=== PATIENT | male | born 1960 | race Caucasian/White ===

== ENCOUNTER 2019-07-13 08:42 | Outpatient (RCR) | payer OTHER, MEDICARE, MEDICAID, SELFPAY ==
[2019-07-13 09:11] VITALS: BP_SYST 90
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
--- NOTE | 2019-08-24 17:57 | OTOPEVAL ---
Thank you for referring Ajit Tyler to [facility]. Please review, sign, date and return this plan of care MAXIM. I agree with and certify that the following plan of care is medically necessary. Referring Physician Date Admitting Provider: Attending Provider: PHYSICIAN NOT ON STAFF Referring Provider: *OT Outpatient Evaluation Start: 07/13/19 09:05 Freq: Status: Active Protocol: Document 08/24/19 16:08 [facility] [place] (Rec: 08/24/19 17:57 [facility] [id number]) Therapy Assessment Status Assessment Status Assessment Status Re-evaluation Outpatient Past Medical History Musculoskeletal History Hx Orthopedic Surgery Yes: C4-C7 fusion in 2014 Evaluation Information Problem Subjective Information Patient reports that he is up Query Text:As Reported By Patient/ to wearing bilateral wrist Family orthosis 3hrs/time and is planning to start wearing them overnight. Patient arrives to therapy with L shoulder sling donned. Patient is now able to perform supine to sit with minimal assist as well as reposition his arms/hands better when sitting in the wheelchair. Patient complains of bilateral shoulder pain. Patient continues to report primary goal of feeding self. Pain Assessment Timing of Pain Assessment Timing of Pain Assessment Re-assessment Pain Scale Pain Scale Used Numeric (1 - 10) Self Report Pain Assessment Bilateral Shoulder(s) Reported Pain Level 5 Pain Score Pain Score 5: Self Report Upper Extremity Range of Motion Scapular/ Shoulder Range of Motion Bilateral Shoulder Flexion - Passive 95 Scapular/Shoulder Range of Motion ~90 of passive flexion with Comments pain Elbow/Forearm Range of Motion Bilateral Reason Not Measured WFL/Left,WFL/Right Wrist Range of Motion Bilateral Wrist Extension - Passive 40 Finger Range of Motion Bilateral Index Finger MCP Joint Flexion - Passive 60 Finger Range of Motion Comments 60 MCP flexion for all digits Upper Extremity Muscle Strength Testing General Upper Extremity Strength Gross Upper Extremity Strength Comments 2- throughout B UE Sensation Assessment Location Bilateral 2 Point Discrimination Comments reports pins and needles Transfer Assessment Car Transfer Assessment Car Transfer Assistive Devices Gait Belt Ambulation Assistive Devices None Sit to Stand Car Transfer Ability Minimum Assistance X 2 Pivot Car Transfer Ability Minimum Assistance X 2 Stand to Sit Car Transfer Ability
--- NOTE | 2019-08-31 16:38 | PCPTNOTE ---
patient cancelled appt today. PARAMJIT
--- NOTE | 2019-09-23 14:37 | PTOPEVAL ---
Thank you for referring Ajit Tyler to [facility]. Please review, sign, date and return this plan of care MAXIM. I agree with and certify that the following plan of care is medically necessary. Referring Physician Date Admitting Provider: Attending Provider: PHYSICIAN NOT ON STAFF Referring Provider: *PT Outpatient Evaluation Start: 07/13/19 10:02 Freq: Status: Active Protocol: Document 08/24/19 17:00 [facility] (Rec: 09/23/19 14:16 [facility] [id number]) Therapy Assessment Status Assessment Status Assessment Status Re-evaluation Outpatient Past Medical History Musculoskeletal History Hx Orthopedic Surgery Yes: C4-C7 fusion in 2014 Evaluation Information Problem Diagnosis spinal injury Subjective Information patient reports he feels he is Query Text:As Reported By Patient/ getting better week by week Family , but still presents with poor use of his UE's. he is seeing OT for his UE rehab. he reports he is walking at home and still staying with his nephew. he reports he is fatigued with therapy and standing activities. he reports he cannot walk on his own. Pain Assessment Timing of Pain Assessment Timing of Pain Assessment Assessment Pain Scale Pain Scale Used Numeric (1 - 10) Self Report Pain Assessment Bilateral Shoulder(s) Reported Pain Level 4 Pain Score Pain Score 4: Self Report Lower Extremity Muscle Strength Testing General Lower Extremity Strength Gross Lower Extremity Strength bilateral hip flex = 3+/5 bilateral hip abd = 2+/5 bilateral knee flex = 4-/5 bilateral knee ext = 4-/5 bilateral ankle df = 3+/5 patient presents with ability to perform supine SLR independent without extension lag patient presents with ability to perform a bridge independently Transfer Assessment Bed Transfer Assessment Bed Transfer Comments moderate assit for sit to stand transfers. Bed Mobility Assessment Bed Mobility Bed Mobility Comments CGA/minimal assist for supine to sit transfers holding feet down on floor. Gait Assessment Gait Assessment Additional Ambulation Comments bilater
--- NOTE | 2019-09-29 07:49 | PTOPEVAL ---
Thank you for referring Ajit Tyler to [facility] [place].? The patient is scheduled to be seen for therapy? ____x/week for ___ weeks. Please review, sign, date and return this plan of care MAXIM. I agree with and certify that the following plan of care is medically necessary. Referring Physician Date Admitting Provider: Attending Provider: PHYSICIAN NOT ON STAFF Referring Provider: *PT Outpatient Evaluation Start: 07/13/19 10:02 Freq: Status: Active Protocol: Document 09/28/19 17:00 [facility] (Rec: 09/29/19 07:47 [facility] [id number]) Therapy Assessment Status Assessment Status Assessment Status Re-evaluation Outpatient Past Medical History Musculoskeletal History Hx Orthopedic Surgery Yes: C4-C7 fusion in 2014 Evaluation Information Problem Diagnosis spinal injury Subjective Information patient reports he feels Good Query Text:As Reported By Patient/ this date. he reports he has Family pain in the shoulder still and is weak with standing. he reports he has been using his new platform walker at home, but still requires assist to get on and off the walker, and to walk with the walker. he reports he is now living in town and able to take transit to therapy. Pain Assessment Timing of Pain Assessment Timing of Pain Assessment Assessment Self Report Self Report Pain Level 0 Pain Score Pain Score 0: Self Report Additional Pain Score Comments increased pain in bilateral shoulders (L greater than R) with movement away from body. Lower Extremity Muscle Strength Testing General Lower Extremity Strength Gross Lower Extremity Strength bilateral hip flex = 3+/5 bilateral hip abd = 3-/5 bilateral knee flex = 4-/5 bilateral knee ext = 4-/5 patient is able to perform sitting marching and LAQ's with good form for 10 reps each wearing 2lb ankle weights . Transfer Assessment Bed Transfer Assessment Bed Transfer Comments utilizing 2 foam pads for assist, patient is able to perform sit to stand with minnimum assist at best, but still moderate assist with majority of transfers due to re
--- NOTE | 2019-10-10 18:02 | OTOPEVAL ---
Thank you for referring Ajit Tyler to [facility].? The patient is scheduled to be seen for therapy? ____x/week for ___ weeks. Please review, sign, date and return this plan of care MAXIM. I agree with and certify that the following plan of care is medically necessary. Referring Physician Date Admitting Provider: Attending Provider: PHYSICIAN NOT ON STAFF Referring Provider: *OT Outpatient Evaluation Start: 07/13/19 09:05 Freq: Status: Active Protocol: Document 10/10/19 16:53 [facility] [place] (Rec: 10/10/19 18:02 [facility] [id number]) Therapy Assessment Status Assessment Status Assessment Status Re-evaluation Outpatient Past Medical History Musculoskeletal History Hx Orthopedic Surgery Yes: C4-C7 fusion in 2014 Evaluation Information Problem Subjective Information Patient reports over the last Query Text:As Reported By Patient/ couple weeks his shoulder Family muscles have come back and I am able to raise my arm off of the chair. He also reports, it doesnt hurt as much to move my shoulders around and I think I can move my fingers more. Patient reports that he continues to do exercises at work, specifically the isometric shoulder exercises. He also reports that they are starting to do more PROM now that his shoulders are a little better. Patient continues to use bilateral wrist orthosis but reports that he is not wearing them as much as he should because he becomes really sore when doffing them. Pain Assessment Timing of Pain Assessment Timing of Pain Assessment Re-assessment Pain Scale Pain Scale Used Numeric (1 - 10) Self Report Pain Assessment Bilateral Shoulder(s) Reported Pain Level 2 Pain Score Pain Score 2: Self Report Upper Extremity Range of Motion Finger Range of Motion Bilateral Finger Range of Motion Comments PROM MCP flexion ~65 degrees PROM Wrist extension ~45 degrees Upper Extremity Muscle Strength Testing General Upper Extremity Strength Gross Upper Extremity Strength Comments bilateral shoulder flexion and abduction: 2-/5 bilateral elbow flexion: 2/5 bilateral elbow extension:3/5
== END 2019-10-10 23:59 | disposition home or self-care (01) ==
LOC: CHSPT 08:42
DX: T14.90XA Injury, unspecified, initial encounter (principal); A41.9 Sepsis, unspecified organism; S14.109A Unspecified injury at unspecified level of cervical spinal cord, initial encounter; M50.30 Other cervical disc degeneration, unspecified cervical region
CPT/HCPCS: 97014; 97110; 97112; 97116; 97140; 97163; 97165; 97166; 97530; G0283

== ENCOUNTER 2019-09-14 14:24 | Outpatient (CLI) | payer MEDICARE, MEDICAID, SELFPAY ==
--- NOTE | ~2019-09-14 | XR_ITS ---
EXAMINATION: XR shoulder LT min 2V DATE: 09/14/2019 15:06 INDICATION: Left rotator cuff syndrome. TECHNIQUE: 4 views of left shoulder were obtained. COMPARISON: None. FINDINGS: Bone alignment is normal. No fracture. There is mild osteoarthritis of glenohumeral joint a nd acromioclavicular joint. There are changes of anterior and posterior fusion procedures in cervical spine. IMPRESSION: 1. Mild polyarticular osteoarthritis. Reviewed, dictated and finalized at location A.
--- NOTE | ~2019-09-14 | XR_ITS ---
EXAMINATION: XR shoulder RT min 2V DATE: 09/14/2019 15:05 INDICATION: Right shoulder rotator cuff syndrome. TECHNIQUE: 4 views of right shoulder were obtained. COMPARISON: None. FINDINGS: Bone alignment is normal. No fracture. There is mild osteoarthritis of glenohumeral joint a nd moderate osteoarthritis of acromioclavicular joint. IMPRESSION: 1. Polyarticular osteoarthritis. Reviewed, dictated and finalized at location A.
== END 2019-09-14 14:25 | disposition home or self-care (01) ==
LOC: CHSIMG 14:30
DX: M75.101 Unspecified rotator cuff tear or rupture of right shoulder, not specified as traumatic (principal)
CPT/HCPCS: 73030

== ENCOUNTER 2019-10-14 09:40 | Outpatient (RCR) | payer OTHER, MEDICARE, MEDICAID, SELFPAY ==
--- NOTE | 2019-11-02 17:43 | PTOPEVAL ---
Thank you for referring Ajit Tyler to [facility].? The patient is scheduled to be seen for therapy? __3__x/week for _12 visits. Please review, sign, date and return this plan of care MAXIM. I agree with and certify that the following plan of care is medically necessary. Referring Physician Date Admitting Provider: Attending Provider: PHYSICIAN NOT ON STAFF Referring Provider: *PT Outpatient Evaluation Start: 11/02/19 16:06 Freq: Status: Active Protocol: Document 11/02/19 16:37 [facility] A (Rec: 11/02/19 17:42 LUIS A [id number]) Therapy Assessment Status Assessment Status Assessment Status Progress Outpatient Past Medical History Musculoskeletal History Hx Orthopedic Surgery Yes: C4-C7 fusion in 2014 Evaluation Information Problem Subjective Information Pt. reports that he is Query Text:As Reported By Patient/ noticing improvments in his Family ability to move in the home. He states that he is currently living with his sister who is able to get him up and walk daily. He states that he still cannot remain active as long as he would like due to not having 24 hour assist. He states that he is able to participate in toileting and can now use the bathroom for bowel movements and urinating. He states that he still needs help with dressing and bathing. He reports that he can get himself upright in bed without assist on occassion and can stand from the EOB without assist. He still requires help when getting into and out of his wc due to the depth of the seat. He states that he fears that not attending therapy, he will not get the required amount of activity that he needs to progress due to lack of adequate help with exercise at home. Pain Assessment Pain Scale Pain Scale Used Numeric (1 - 10) Self Report Pain Assessment Bilateral Shoulder(s) Reported Pain Level 4 Pain Score Pain Score 4: Self Report Cervical and Lumbar ROM Cervical ROM Cervical Flexion (0-60) 23 Q
--- NOTE | 2019-11-11 17:02 | OTOPEVAL ---
Thank you for referring Ajit Tyler to [facility].? The patient is scheduled to be seen for therapy? ____x/week for ___ weeks. Please review, sign, date and return this plan of care MAXIM. I agree with and certify that the following plan of care is medically necessary. Referring Physician Date Admitting Provider: Attending Provider: PHYSICIAN NOT ON STAFF Referring Provider: *OT Outpatient Evaluation Start: 10/14/19 16:00 Freq: Status: Active Protocol: Document 11/11/19 15:51 [facility] [place] (Rec: 11/11/19 17:01 [facility] [id number]) Therapy Assessment Status Assessment Status Assessment Status Re-evaluation Outpatient Past Medical History Musculoskeletal History Hx Orthopedic Surgery Yes: C4-C7 fusion in 2014 Evaluation Information Problem Subjective Information Patient transitions from PT to Query Text:As Reported By Patient/ OT and reports that overall Family things are going well at home. He continues to live with his sister who is available to assist with bathing, dressing and grooming. Patient reports that he is now able to use the toilet and is able to use his walker more within the home. Patient is also able to perform transfers with minimal assist as well as bed mobility. He states that he can sit up on the side of the bed and stand up without any assistance. Patient is able to position bilateral arms on platform walker prior to walking. Patient continues to have a goal of independent self feeding. Patient Pain Assessment Timing of Pain Assessment Timing of Pain Assessment Pre-Treatment Pain Scale Pain Scale Used Numeric (1 - 10) Self Report Pain Assessment Bilateral Shoulder(s) Reported Pain Level 4 Pain Score Pain Score 4: Self Report Upper Extremity Range of Motion Wrist Range of Motion Bilateral Wrist Extension - Passive 45 Finger Range of Motion Bilateral Finger Range of Motion Comments MCP passive flexion: 80 degrees Upper Extremity Muscle Strength Testing Elbow/Forearm Right Elbow Flexion Strength 2+ Poor + Left Elbow Flexion Strength 2+ Poor + Sensation Assessment Location Bilateral 2 Point Discrimination Comments Patient reports tingling and
--- NOTE | 2019-12-09 16:20 | PTOPEVAL ---
Thank you for referring Ajit Tyler to [facility].? The patient is scheduled to be seen for therapy? ____x/week for ___ weeks. Please review, sign, date and return this plan of care MAXIM. I agree with and certify that the following plan of care is medically necessary. Referring Physician Date Admitting Provider: Attending Provider: PHYSICIAN NOT ON STAFF Referring Provider: *PT Outpatient Evaluation Start: 11/02/19 16:06 Freq: Status: Active Protocol: Document 11/30/19 14:25 HERMANN (Rec: 11/30/19 16:00 HERMANN [id number]) Therapy Assessment Status Assessment Status Assessment Status Re-evaluation Outpatient Past Medical History Musculoskeletal History Hx Orthopedic Surgery Yes: C4-C7 fusion in 2014 Evaluation Information Problem Diagnosis SCI, bialteral frozen shoulders Subjective Information patient reports he is noticing Query Text:As Reported By Patient/ improvements in both his arms Family and legs with activities in therapy and at home. however, he reports the most limitations still in his UE use/mobility. Pain Assessment Timing of Pain Assessment Timing of Pain Assessment Assessment Pain Scale Pain Scale Used Numeric (1 - 10) Self Report Pain Assessment Bilateral Shoulder(s) Reported Pain Level 5 Pain Score Pain Score 5: Self Report Upper Extremity Range of Motion General Upper Extremity Range of Motion Gross Upper Extremity Range of Motion PROM R shoulder flex = 65 Comments degrees, abd = 40 degrees, er = 0 degrees PROM L sholder flex = 70 degrees, abd = 50 degrees, er = 10 degrees Lower Extremity Muscle Strength Testing General Lower Extremity Strength Gross Lower Extremity Strength bilateral hip flexion 4/5 bilateral hip abduction 3+/5 bilateral hip extension 3+/5 bilateral knee flexion 4/5 bilateral knee extension 4/5 bilateral ankle dorsiflexion 4 /5 Transfer Assessment Chair Transfer Assessment Chair Transfer Assistive Devices Gait Belt Ambulation Assistive Devices Hand Hold Chair Transfer Destination Ambulatory Sit to Stand Chair Transfer Ability Contact Guard Stand to Sit Chair Transfer Ability Contact Guard Chair Transfer Comments patient performs improved transfers sit to stand this date from moderate to high
[2020-01-04 16:13] VITALS: BP_SYST 80
--- NOTE | 2020-01-04 17:18 | PTOPEVAL ---
Thank you for referring Ajit Tyler to [facility].? The patient is scheduled to be seen for therapy? __3__x/week for 12 visits. Please review, sign, date and return this plan of care MAXIM. I agree with and certify that the following plan of care is medically necessary. Referring Physician Date Admitting Provider: Attending Provider: PHYSICIAN NOT ON STAFF Referring Provider: *PT Outpatient Evaluation Start: 11/02/19 16:06 Freq: Status: Active Protocol: Document 01/04/20 16:13 LUIS A (Rec: 01/04/20 17:17 LUIS A [id number]) Therapy Assessment Status Assessment Status Assessment Status Re-evaluation Outpatient Past Medical History Musculoskeletal History Hx Orthopedic Surgery Yes: C4-C7 fusion in 2014 Evaluation Information Problem Diagnosis SCI, bilateral frozen shoulders Subjective Information Pt. reports that he notices Query Text:As Reported By Patient/ better shoulder mobility, but Family pain is still intense with any shoulder movement. He states that he does not have alot of assistance at home regarding exercise. He is able to get himself seated at the edge of the bed. He reports that he is almost able to feed himself with some adaptive equipment but still requires assist. He states that he has been walking in the stores with his walker with assist from family. Pt. still has concern because he cannot be provided daily assist for vigorous activity and request to continue therapy to continue to improve shoulder mobility and general strength. Pain Assessment Pain Scale Pain Scale Used Numeric (1 - 10) Self Report Pain Assessment Lower Back Reported Pain Level 6 Bilateral Shoulder(s) Reported Pain Level 4 Greatest Pain Intensity 8 Pain Score Pain Score 6,4: Self Report Interventions Used Interventions Used By Clinicians Activity or ADL's,Exercise, Mobilization Upper Extremity Range of Motion Scapular/ Shoulder Range of Motion Left Shoulder Flexion - Active 0 Shoulder Flexion - Passive 90 Shoulder Abduction - Active 0 Shoulder Abduction - Passive 80 Shoulder Lateral Rotation - Active 0
--- NOTE | 2020-01-10 07:35 | OTOPEVAL ---
Thank you for referring Ajit Tyler to [facility].? The patient is scheduled to be seen for therapy? ____x/week for ___ weeks. Please review, sign, date and return this plan of care MAXIM. I agree with and certify that the following plan of care is medically necessary. Referring Physician Date Admitting Provider: Attending Provider: PHYSICIAN NOT ON STAFF Referring Provider: *OT Outpatient Evaluation Start: 10/14/19 16:00 Freq: Status: Active Protocol: Document 01/09/20 16:53 [facility] [place]Rec: 01/09/20 17:53 [id number]) Therapy Assessment Status Assessment Status Assessment Status Re-evaluation Outpatient Past Medical History Musculoskeletal History Hx Orthopedic Surgery Yes: C4-C7 fusion in 2014 Evaluation Information Problem Subjective Information Patient reports that he is now Query Text:As Reported By Patient/ able to [employer] his phone and Family the remote control. He is also able to dial numbers on his phone, reach down and pull up/down his foot plates on wheelchair. Physical therapy continues to address shoulder limitations. Patient has had an increase in lower back pain over the last ~4 weeks. Patient reports that tingling in his UE's continues to be present but intensity varies. Pain Assessment Timing of Pain Assessment Timing of Pain Assessment Pre-Treatment Pain Scale Pain Scale Used Numeric (1 - 10) Self Report Pain Assessment Lower Back Reported Pain Level 5 Bilateral Shoulder(s) Reported Pain Level 5 Pain Score Pain Score 5,5: Self Report Interventions Used Interventions Used By Clinicians Exercise,Position Change Upper Extremity Range of Motion General Upper Extremity Range of Motion Gross Upper Extremity Range of Motion PROM for bilateral elbows and Comments wrist is WFL *see PT note for ROM of B shoulders Finger Range of Motion Right Index Finger MCP Joint Flexion - Passive 60 Index Finger PIP Joint Flexion - Passive 55 Index Finger DIP Joint Flexion - Passive 35 Little Finger MCP Joint Flexion - 55 Passive Little Finger PIP Joint Flexion - 70 Passive Little Finger DIP Joint Flexion - 45 Passive Left Index Finger MCP Joint Flexion - Passive 55 Index Finger PIP Joint Flexion - Passive 90 Index Finger DIP Joint Flexion - Passive 30 Little Finger MCP Joint Flexion - 40 Passive
== END 2020-01-16 23:59 | disposition home or self-care (01) ==
LOC: CHSPT 09:40
DX: T14.90XA Injury, unspecified, initial encounter (principal); A41.9 Sepsis, unspecified organism; S14.109A Unspecified injury at unspecified level of cervical spinal cord, initial encounter; M43.9 Deforming dorsopathy, unspecified
CPT/HCPCS: 97014; 97110; 97112; 97116; 97161; 97530; G0283

== ENCOUNTER 2019-10-25 10:28 | Outpatient (CLI) | payer MEDICARE, MEDICAID, SELFPAY ==
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
== END 2019-10-25 10:29 | disposition home or self-care (01) ==
DX: R51 Headache (principal)
CPT/HCPCS: 76536

== ENCOUNTER 2019-12-02 22:41 | Emergency (ER) | payer MEDICARE, MEDICAID, SELFPAY ==
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
[2019-12-02 23:03] VITALS: BP 164/84; PULSE 110; RESP 20; TEMP 36.8; O2SAT 96
[2019-12-03] MEDS: ORPHENADRINE CITRATE 30 MG/ML 2 ML VIAL 60 MG IM
[2019-12-03] MEDS: KETOROLAC (*BKC) 60 MG/2 ML VIAL IM (00:01)
[2019-12-03 00:10] VITALS: BP 144/78; PULSE 98; RESP 20; TEMP 37.1; O2SAT 97
== END 2019-12-03 00:16 | disposition home or self-care (01) ==
PROVIDERS: Emergency Provider Emergency Medicine
DX: M51.26 Other intervertebral disc displacement, lumbar region (principal)
CPT/HCPCS: 72131; 96372; 99283; 99284; J1885; J2360

== ENCOUNTER 2020-01-18 14:19 | Outpatient (RCR) | payer MEDICARE, MEDICAID, SELFPAY ==
--- NOTE | 2020-02-22 16:30 | OTOPEVAL ---
Thank you for referring Ajit Tyler to [facility].? The patient is scheduled to be seen for therapy? ____x/week for ___ weeks. Please review, sign, date and return this plan of care MAXIM. I agree with and certify that the following plan of care is medically necessary. Referring Physician Date Admitting Provider: Attending Provider: PHYSICIAN NOT ON STAFF Referring Provider: *OT Outpatient Evaluation Start: 01/18/20 16:00 Freq: Status: Active Protocol: Document 02/22/20 15:00 [facility] (Rec: 02/22/20 16:00 [facility] [id number]) Therapy Assessment Status Assessment Status Assessment Status Re-evaluation Outpatient Past Medical History Musculoskeletal History Hx Orthopedic Surgery Yes: C4-C7 fusion in 2014 Evaluation Information Problem Subjective Information Patient reports that he has Query Text:As Reported By Patient/ been able to use his hands Family more to manipulate the remote control and his cell phone. Patient is able to hold his arms up while his caregiver removes the shirt. Patient reports that he is able to reach and pull up his pants while sitting on the toilet. Patient is able to move his arms better to be able to assist with donning and doffing jacket. Patient has also been able to reach and grasp a mug and take a drink. Getting in and out of the car is easier as patient notes that he has been going to [employer] and walking all over the store. Patient is now consistently using his right hand to control his wheelchair . Pain Assessment Timing of Pain Assessment Timing of Pain Assessment Re-assessment Pain Scale Pain Scale Used Numeric (1 - 10) Self Report Pain Assessment Shoulder(s) Reported Pain Level 3 Lower Back Reported Pain Level 3 Pain Score Pain Score 3,3: Self Report Interventions Used Interventions Used By Clinicians Exercise,Rest General Exercise General Exercises Side Bilateral Exercise Description 3# wrist weight resisting Query Text:Record Sets, Reps, elbow flexion, 25 reps x 2 Resistance, and Position sets Patient is able to oppose the
--- NOTE | 2020-03-28 16:39 | OTOPEVAL ---
Thank you for referring Ajit Tyler to [facility].? The patient is scheduled to be seen for therapy? ____x/week for ___ weeks. Please review, sign, date and return this plan of care MAXIM. I agree with and certify that the following plan of care is medically necessary. Referring Physician Date Admitting Provider: Attending Provider: PHYSICIAN NOT ON STAFF Referring Provider: *OT Outpatient Evaluation Start: 01/18/20 16:00 Freq: Status: Active Protocol: Document 03/28/20 15:35 [facility] (Rec: 03/28/20 16:38 [facility] [id number]) Therapy Assessment Status Assessment Status Assessment Status Re-evaluation Outpatient Past Medical History Musculoskeletal History Hx Orthopedic Surgery Yes: C4-C7 fusion in 2014 Evaluation Information Problem Subjective Information Patient reports that things Query Text:As Reported By Patient/ are going well. He is doing Family more standing and walking with independence. Patient is using his hands to stack and manipulate Legos as well as continues to improve accuracy with use of remote control and the phone. Patient continues to perform home exercises but is struggling to assist with toileting, dressing, bathing. Pain Assessment Timing of Pain Assessment Timing of Pain Assessment Re-assessment Pain Scale Pain Scale Used Numeric (1 - 10) Self Report Pain Assessment Shoulder(s) Reported Pain Level 2 Lower Back Reported Pain Level 2 Pain Score Pain Score 2,2: Self Report Interventions Used Interventions Used By Clinicians Exercise,Position Change, Relaxation Technique Upper Extremity Range of Motion General Upper Extremity Range of Motion Gross Upper Extremity Range of Motion R index MCP flexion: 70 Comments R index PIP flexion: 70 L index MCP: 65 degrees Upper Extremity Muscle Strength Testing Elbow/Forearm Bilateral Elbow Flexion Strength 3- Fair - Elbow Extension Strength 3- Fair - Forearm Pronation Strength 3- Fair - Forearm Supination Strength 3- Fair - Hand Clinical Evaluator/Pinch Strength Assessment Hand Right Clinical Evaluator Strength (lbs) 6 Left Clinical Evaluator Strength (lbs) 6 Complex ADL Assessment Eating/Feeding Eating (Feeding) Assistive Devices Adapted Utensil,Utensil Cuff Ability to Bring Food to Mouth and Contact Guard Swallow Cues Needed for Eating Tactile Eating (Feeding) Comment max assist to load spoon however patien
== END 2020-04-20 15:26 | disposition still patient (30) ==
LOC: CHSPT 14:19
DX: T14.90XA Injury, unspecified, initial encounter (principal); A41.9 Sepsis, unspecified organism; S14.109A Unspecified injury at unspecified level of cervical spinal cord, initial encounter
CPT/HCPCS: 97110; 97116; 97530; 97535

== ENCOUNTER 2020-04-23 15:00 | Outpatient (RCR) | payer MEDICARE, MEDICAID, SELFPAY ==
--- NOTE | 2020-05-04 16:32 | OTOPEVAL ---
Thank you for referring Ajit Tyler to [facility].? The patient is scheduled to be seen for therapy? ____x/week for ___ weeks. Please review, sign, date and return this plan of care MAXIM. I agree with and certify that the following plan of care is medically necessary. Referring Physician Date Admitting Provider: Attending Provider: LACEY HERNANDEZ Referring Provider: LeonardOT Outpatient Evaluation Start: 05/04/20 14:46 Freq: Status: Active Protocol: Document 05/04/20 14:47 [facility] (Rec: 05/04/20 16:31 [facility] [id number]) Therapy Assessment Status Assessment Status Assessment Status Re-evaluation Outpatient Past Medical History Musculoskeletal History Hx Orthopedic Surgery Yes: C4-C7 fusion in 2014 Evaluation Information Problem Subjective Information Patient reports that things Query Text:As Reported By Patient/ are going well at home. He Family states that things are getting easier. He is able to run the remote now using his thumbs and is starting to be able to hold a cup but struggles to bring to his mouth. Patient is also starting to assist with donning and doffing clothes. Patient was recently able to remove his gait belt independently. Patient states that he is not currently using his bilateral wrist orthosis secondary to being painful. Pain Assessment Timing of Pain Assessment Timing of Pain Assessment Re-assessment Pain Scale Pain Scale Used Numeric (1 - 10) Self Report Pain Assessment Bilateral Shoulder(s) Reported Pain Level 2 Back Reported Pain Level 3 Pain Score Pain Score 2,3: Self Report Interventions Used Interventions Used By Clinicians Exercise,Position Change Pain Relief Interventions Used By Exercise,Position Change Patient Upper Extremity Muscle Strength Testing General Upper Extremity Strength Gross Upper Extremity Strength Comments bilateral elbow flexion strength: 3-/5 Complex ADL Assessment Eating/Feeding Eating (Feeding) Assistive Devices Adapted Utensil,Utensil Cuff Patient Position Supported Sitting Retrieving/Setting Up Food Items Needs Assistance Method of Eating Using Utensil Ability to Bring Food to Mouth and Minimum Assistance X 1 Swallow Cues Needed for Eating Tactile Eating (Feeding) Comment
--- NOTE | 2020-07-02 17:30 | OTOPEVAL ---
Thank you for referring Ajit Tyler to [facility].? The patient is scheduled to be seen for therapy? ____x/week for ___ weeks. Please review, sign, date and return this plan of care MAXIM. I agree with and certify that the following plan of care is medically necessary. Referring Physician Date Admitting Provider: Attending Provider: LACEY HERNANDEZ Referring Provider: LeonardOT Outpatient Evaluation Start: 05/04/20 14:46 Freq: Status: Active Protocol: Document 07/02/20 15:25 [facility] (Rec: 07/02/20 16:29 [facility] [id number]) Therapy Assessment Status Assessment Status Assessment Status Re-evaluation Outpatient Past Medical History Musculoskeletal History Hx Orthopedic Surgery Yes: C4-C7 fusion in 2014 Evaluation Information Problem Subjective Information Patient reports that he is Query Text:As Reported By Patient/ scheduled for a R shoulder Family manipulation tomorrow. Patient also reports that he walked around a lot this weekened. 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 Pain Assessment Timing of Pain Assessment Timing of Pain Assessment Re-assessment Pain Scale Pain Scale Used Numeric (1 - 10) Self Report Pain Assessment Bilateral Shoulder(s) Reported Pain Level 2 Back Reported Pain Level 2 Pain Score Pain Score 2,2: Self Report Interventions Used Interventions Used By Clinicians Exercise,Manual Therapy Techniques,Position Change Upper Extremity Range of Motion General Upper Extremity Range of Motion Gross Upper Extremity Range of Motion PROM for L MCP flexion of Comments index is 70 degrees Upper Extremity Muscle Strength Testing Elbow/Forearm Bilateral Elbow/Forearm Strength Comments 3/5 Hand Quality Assurance Analyst/Pinch Strength Assessment Hand Right Quality Assurance Analyst Strength (lbs) 6 Left Quality Assurance Analyst Strength (lbs) 7 Complex ADL Assessment Eating/Feeding Eating (Feeding) Assistive Devices Adapted Utensil,Utensil Cuff Patient Position Supported Sitting Retrieving/Setting Up Food Items Needs Assistance Ability to Bring Food to Mouth and Contact Guard Swallow Eating (Feeding) Comment patient's long handled curved utensil is placed in universal cuff this date for feeding. Patient requires min assist to
--- NOTE | 2020-08-01 16:30 | PCOTNOTE ---
On 08/01/20, the student, [Bri Nielsen], provided care and completed [facility] documentation on this patient. I have reviewed the student's documentation and agree with the findings.
== END 2020-07-19 15:06 | disposition still patient (30) ==
LOC: CHSOT 15:00
DX: T14.90XA Injury, unspecified, initial encounter (principal); A41.9 Sepsis, unspecified organism; S14.109A Unspecified injury at unspecified level of cervical spinal cord, initial encounter
CPT/HCPCS: 97110; 97530; 97535

== ENCOUNTER 2020-07-04 14:02 | Outpatient (RCR) | payer MEDICARE, MEDICAID, SELFPAY ==
[2020-07-04 16:10] VITALS: BP_SYST 85
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
[2020-08-09 15:00] VITALS: BP_SYST 80
--- NOTE | 2020-08-09 16:17 | PTOPEVAL ---
Thank you for referring Ajit Tyler to [facility].? The patient is scheduled to be seen for therapy? ____x/week for ___ weeks. Please review, sign, date and return this plan of care MAXIM. I agree with and certify that the following plan of care is medically necessary. Referring Physician Date Admitting Provider: Attending Provider: Blaine Sol Referring Provider: LeonardPT Outpatient Evaluation Start: 07/04/20 16:09 Freq: Status: Active Protocol: Document 08/09/20 15:00 [facility] (Rec: 08/09/20 15:58 [facility] [id number]) Therapy Assessment Status Assessment Status Assessment Status Re-evaluation Outpatient Past Medical History Musculoskeletal History Hx Orthopedic Surgery Yes: C4-C7 fusion in 2014 Evaluation Information Problem Diagnosis R shoulder adhesive capsulitis , post op arthroscopy Onset 07/03/20 Subjective Information Patient reports shoulder pain Query Text:As Reported By Patient/ on this date. He experienced a Family recent fall where he fell on his R shoulder. patient arrives to therapy with new orders to continue skilled PT for 4 more weeks per his MD. Pain Assessment Timing of Pain Assessment Timing of Pain Assessment Assessment Pain Scale Pain Scale Used Numeric (1 - 10) Self Report Pain Assessment Right Shoulder(s) Reported Pain Level 4 Greatest Pain Intensity 7 Pain Score Pain Score 4: Self Report Interventions Used Interventions Used By Clinicians Activity or ADL's,Electrical Stimulation,Exercise,Heat,Ice Upper Extremity Range of Motion Scapular/ Shoulder Range of Motion Right Shoulder Flexion - Active 55 Shoulder Flexion - Passive 115 Shoulder Abduction - Active 100 Shoulder Abduction - Passive 80 Shoulder Medial Rotation - Active 65 Shoulder Medial Rotation - Passive 78 Shoulder Lateral Rotation - Active 40 Shoulder Lateral Rotation - Passive 55 Upper Extremity Muscle Strength Testing General Upper Extremity Strength Gross Upper Extremity Strength Comments 3-/5 overall R shoulder strength Palpation Assessment Palpation Palpation Firm end feel with PROM to approx 100 degrees shoulder flex, 100 degrees abd, and 50 degrees IR/ER; no TTP on this date, but shoulder is anteriorally located in socket General Exercise General Exercises Exercise Description -passive stretching into right Query Text:Record Sets, Reps, shoulder flexion and ER x 20
--- NOTE | 2020-08-15 17:10 | PCPTNOTE ---
On 08/15/20, the student, [Justina Wiggins, SPT], provided care and completed [facility] documentation on this patient. I have reviewed the student's documentation and agree with the findings.
[2020-09-12 15:55] VITALS: BP_SYST 100
== END 2020-09-12 18:00 | disposition home or self-care (01) ==
LOC: CHSPT 14:02
DX: M75.01 Adhesive capsulitis of right shoulder (principal)
CPT/HCPCS: 97014; 97110; 97140; 97161; G0283

== ENCOUNTER 2020-08-07 15:12 | Outpatient (RCR) | payer MEDICARE, MEDICAID, SELFPAY ==
--- NOTE | 2020-08-23 16:12 | OTOPEVAL ---
Thank you for referring Ajit Tyler to [facility].? The patient is scheduled to be seen for therapy? ____x/week for ___ weeks. Please review, sign, date and return this plan of care MAXIM. I agree with and certify that the following plan of care is medically necessary. Referring Physician Date Admitting Provider: Attending Provider: LACEY HERNANDEZ Referring Provider: LeonardOT Outpatient Evaluation Start: 08/07/20 15:14 Freq: Status: Active Protocol: Document 08/23/20 15:00 [facility] (Rec: 08/23/20 16:11 [facility] [id number]) Therapy Assessment Status Assessment Status Assessment Status Re-evaluation Outpatient Past Medical History Musculoskeletal History Hx Orthopedic Surgery Yes: C4-C7 fusion in 2014 Evaluation Information Problem Subjective Information Patient reports that he saw Query Text:As Reported By Patient/ his doctor today who Family recommended another 30 days of PT and then they will discuss manipulation of the L shoulder. Patient reports that he able to pick more things up with his hands and is able to feed himself a little more. Pain Assessment Timing of Pain Assessment Timing of Pain Assessment Re-assessment Pain Scale Pain Scale Used Numeric (1 - 10) Self Report Pain Assessment Lower Back Reported Pain Level 3 Bilateral Shoulder(s) Reported Pain Level 3 Pain Score Pain Score 3,3: Self Report Interventions Used Interventions Used By Clinicians Activity or ADL's,Exercise Upper Extremity Muscle Strength Testing General Upper Extremity Strength Gross Upper Extremity Strength Comments B elbow and wrist strength: 3+ /5 Hand Fur Trimmer/Pinch Strength Assessment Hand Right Fur Trimmer Strength (lbs) 6 Left Fur Trimmer Strength (lbs) 6 Complex ADL Assessment Eating/Feeding Eating (Feeding) Assistive Devices Adapted Utensil,Utensil Cuff Patient Position Supported Sitting Retrieving/Setting Up Food Items Needs Assistance Method of Eating Using Utensil Ability to Bring Food to Mouth and Minimum Assistance X 1 Swallow Eating (Feeding) Comment min assist to initiate self feeding with CGA/SBA for ~40% of the time. Patient is observed to use the table for elbow support when bringing utensil to mouth Upper Body Dressing Putting On/Removing Shirt: Includes Maximum Assistance X 1 Buttoning if Applicable Upper Body Dressing Comment mod t
--- NOTE | 2020-10-10 15:57 | OTOPEVAL ---
Thank you for referring Ajit Tyler to [facility] [place] [facility].? The patient is scheduled to be seen for therapy? ____x/week for ___ weeks. Please review, sign, date and return this plan of care MAXIM. I agree with and certify that the following plan of care is medically necessary. Referring Physician Date Admitting Provider: Attending Provider: LACEY HERNANDEZ Referring Provider: LeonardOT Outpatient Evaluation Start: 08/07/20 15:14 Freq: Status: Active Protocol: Document 10/10/20 15:38 [facility] (Rec: 10/10/20 15:55 [facility] [id number]) Therapy Assessment Status Assessment Status Assessment Status Discharge Outpatient Past Medical History Musculoskeletal History Hx Orthopedic Surgery Yes: C4-C7 fusion in 2014 Evaluation Information Problem Subjective Information Patient reports that he has Query Text:As Reported By Patient/ been feeding himself more Family frequently and was able to feed himself breakfast this morning. Patient is scheduled for L shoulder manipulation on November 20, 2020. Patient arrives with velcro gloves and requests to go over theraband exercises that he cant continue at home. Patient is in agreement with discharge and continuation of home programming until after shoulder surgery. Pain Assessment Timing of Pain Assessment Timing of Pain Assessment Pre-Treatment Pain Scale Pain Scale Used Numeric (1 - 10) Self Report Pain Assessment Lower Back Reported Pain Level 2 Bilateral Shoulder(s) Reported Pain Level 2 Pain Score Pain Score 2,2: Self Report Interventions Used Interventions Used By Clinicians Exercise Complex ADL Assessment Eating/Feeding Eating (Feeding) Comment per patient he is able to feed himself 100% of some meals using AE. Lower Body Dressing Lower Body Dressing Comments per patient- patient requires mod to max assist to don and doff pants and shirt General Exercise General Exercises Side Bilateral Exercise Description with patient's velcro gloves Query Text:Record Sets, Reps, donned bilaterally patient Resistance, and Position performs the following with orange thera-tube resisting: elbow flexion, elbow extension , shoulder flexion, internal
== END 2020-10-10 16:38 | disposition home or self-care (01) ==
LOC: CHSOT 15:12
DX: T14.90XA Injury, unspecified, initial encounter (principal); A41.9 Sepsis, unspecified organism; S14.109A Unspecified injury at unspecified level of cervical spinal cord, initial encounter
CPT/HCPCS: 97110; 97530; 97535

== ENCOUNTER 2020-11-21 14:25 | Outpatient (RCR) | payer MEDICARE, MEDICAID, SELFPAY ==
[2020-11-21 15:12] VITALS: BP_SYST 76
--- NOTE | 2020-11-21 15:59 | PTOPEVAL ---
Thank you for referring Ajit Tyler to [facility].? The patient is scheduled to be seen for therapy? _3___x/week for 12 visits. Please review, sign, date and return this plan of care MAXIM. I agree with and certify that the following plan of care is medically necessary. Referring Physician Date Admitting Provider: Attending Provider: jocelynn jane Referring Provider: *PT Outpatient Evaluation Start: 11/21/20 15:12 Freq: Status: Active Protocol: Document 11/21/20 15:12 [facility] (Rec: 11/21/20 15:58 [facility] [id number]) Therapy Assessment Status Assessment Status Assessment Status Evaluation Outpatient Past Medical History Musculoskeletal History Hx Orthopedic Surgery Yes: C4-C7 fusion in 2014 Evaluation Information Problem Diagnosis s/p shoulder arthroscopy Onset 11/20/20 Subjective Information Pt. reports that he underwent Query Text:As Reported By Patient/ surgery yesterday. He states Family that current pain is 7/10. He reports that he is currently wearing a sling, but was told to remove the sling in 24 hours. He reports sleep was difficult last night following the surgery. Pain Assessment Pain Scale Pain Scale Used Numeric (1 - 10) Self Report Pain Assessment Left Shoulder(s) Reported Pain Level 7 Pain Description Aching Pain Score Pain Score 7: Self Report Interventions Used Interventions Used By Clinicians Activity or ADL's,Exercise, Manual Therapy Techniques Upper Extremity Range of Motion Scapular/ Shoulder Range of Motion Left Shoulder Flexion - Passive 86 Shoulder Abduction - Passive 76 Shoulder Medial Rotation - Passive 50 Shoulder Lateral Rotation - Passive 54 Palpation Assessment Palpation Palpation Tissue texture around the left shoulder is hard and painful with light palpation. General Exercise General Exercises Exercise Description -PROM to the left shoulder Query Text:Record Sets, Reps, into flexion, abduction, IR Resistance, and Position and ER x 20 minutes Manual Therapy Manual Therapy Treatment Comments Grade 2-3 anterior, inferior, Query Text:Include Technique and and posterior mobilization to Result of Technique promote ER, flexion and IR respectively at the right shoulder x 10 minutes Modalities Electrical Stimulation Left Shoulder Stimulation Type Interferential In Conjunctions With Cold Pack
--- NOTE | 2020-12-05 15:52 | PTOPEVAL ---
Thank you for referring Ajit Tyler to [facility].? The patient is scheduled to be seen for therapy? ____x/week for ___ weeks. Please review, sign, date and return this plan of care MAXIM. I agree with and certify that the following plan of care is medically necessary. Referring Physician Date Admitting Provider: Attending Provider: jocelynn jane Referring Provider: ANDRE Outpatient Evaluation Start: 11/21/20 15:12 Freq: Status: Active Protocol: Document 12/05/20 14:40 [facility] (Rec: 12/05/20 15:48 [facility] [id number]) Therapy Assessment Status Assessment Status Assessment Status Progress Outpatient Past Medical History Musculoskeletal History Hx Orthopedic Surgery Yes: C4-C7 fusion in 2014 Evaluation Information Problem Diagnosis s/p shoulder arthroscopy Onset 11/20/20 Subjective Information patient reports he feels Query Text:As Reported By Patient/ Alright this date. he reports Family this shoulder does hurt worse than the R shoulder surgery. he reports he is working on exercises at home with the help of family. Pain Assessment Timing of Pain Assessment Timing of Pain Assessment Assessment Pain Scale Pain Scale Used Numeric (1 - 10) Self Report Pain Assessment Left Shoulder(s) Reported Pain Level 6 Greatest Pain Intensity 9 Pain Score Pain Score 6: Self Report Interventions Used Interventions Used By Clinicians Activity or ADL's,Electrical Stimulation,Exercise,Heat Upper Extremity Range of Motion Scapular/ Shoulder Range of Motion Left Scapular/Shoulder Range of Motion supine arom L shoulder flexion Comments = 45 degrees supine prom L shoulder flexion = 125 degrees supine prom L shoulder ER = 45 degrees at 45 degrees abduction General Exercise General Exercises Exercise Description -prom L shoulder mobility flex Query Text:Record Sets, Reps, , abduction, er x30 minutes Resistance, and Position -progress note update x5 minutes Modalities Electrical Stimulation Left Shoulder Stimulation Type Interferential Treatment Duration (minutes) 15 In Conjunctions With Cold Pack Patient Position Supine Reason For Treatment Edema,Pain Management Response to Treatment for Contributing Reduce Edema,Reduce Pain to Therapeutic Activity Hot Pack/Cold Pack Left Shoulder Type Hot Pack Hot Pack
--- NOTE | 2020-12-17 16:57 | PTOPEVAL ---
Thank you for referring Ajit Tyler to [facility].? The patient is scheduled to be seen for therapy? ____x/week for ___ weeks. Please review, sign, date and return this plan of care MAXIM. I agree with and certify that the following plan of care is medically necessary. Referring Physician Date Admitting Provider: Attending Provider: jocelynn jane Referring Provider: ANDRE Outpatient Evaluation Start: 11/21/20 15:12 Freq: Status: Active Protocol: Document 12/17/20 16:00 [facility] (Rec: 12/17/20 16:55 [facility] [email or web address]) Therapy Assessment Status Assessment Status Assessment Status Progress Outpatient Past Medical History Musculoskeletal History Hx Orthopedic Surgery Yes: C4-C7 fusion in 2014 Evaluation Information Problem Diagnosis s/p L shoulder arthroscopy Onset 11/20/20 Subjective Information Patient reports that he is Query Text:As Reported By Patient/ able to put more pressure on Family it at home. He is still stretching it everyday with his family. Pain Assessment Timing of Pain Assessment Timing of Pain Assessment Assessment Pain Scale Pain Scale Used Numeric (1 - 10) Self Report Pain Assessment Left Shoulder(s) Reported Pain Level 6 Greatest Pain Intensity 8 Pain Score Pain Score 6: Self Report Interventions Used Interventions Used By Clinicians Activity or ADL's,Electrical Stimulation,Exercise,Heat,Ice Upper Extremity Range of Motion Scapular/ Shoulder Range of Motion Left Scapular/Shoulder Range of Motion supine AROM L shoulder flexion Comments : 45 degrees supine PROM L shoulder flexion : 122 degrees supine PROM L shoulder ER at 45 degrees abd: 45 degrees General Exercise General Exercises Exercise Description - passive shoulder PROM in all Query Text:Record Sets, Reps, planes x 30 minutes Resistance, and Position - reeval x 5 minutes Modalities Electrical Stimulation Left Shoulder Stimulation Type Interferential Treatment Duration (minutes) 15 In Conjunctions With Cold Pack Patient Position Supine Reason For Treatment Pain Management,Soft Tissue Tightness/Spasms Response to Treatment for Contributing Reduce Pain,Reduce Soft Tissue to Therapeutic Activity Tightness/Spasms Hot Pack/Cold Pack Left Shoulder Type Hot Pack Hot Pack/Cold Pack Patient Position Sitting Reason For Treatment Increase Range of Motion,Pain Management,Soft Tissue
--- NOTE | 2021-01-28 12:26 | PTOPEVAL ---
Thank you for referring Ajit Tyler to [facility].? The patient is scheduled to be seen for therapy? ____x/week for ___ weeks. Please review, sign, date and return this plan of care MAXIM. I agree with and certify that the following plan of care is medically necessary. Referring Physician Date Admitting Provider: Attending Provider: jocelynn jane Referring Provider: LeonardPT Outpatient Evaluation Start: 11/21/20 15:12 Freq: Status: Active Protocol: Document 01/25/21 15:00 [facility] (Rec: 01/28/21 12:26 J Filej) Therapy Assessment Status Assessment Status Assessment Status Re-evaluation Outpatient Past Medical History Musculoskeletal History Hx Orthopedic Surgery Yes: C4-C7 fusion in 2014 Evaluation Information Problem Diagnosis s/p L shoulder arthroscopy, R shoulder pain Onset 11/20/20 Subjective Information mr. tyler presents to skilled Query Text:As Reported By Patient/ PT this date with a new order Family to continue skilled PT on the L shoulder, but to add the R shoulder into his POC again. he reports lately the R shoulder has been a bit more painful than usual, and is especially tight. he reports he still has difficulty with use of the R and L shoulders, but has better use overall of the R shoulder. Pain Assessment Timing of Pain Assessment Timing of Pain Assessment Assessment Pain Scale Pain Scale Used Numeric (1 - 10) Self Report Pain Assessment Right Shoulder(s) Reported Pain Level 3 Left Shoulder(s) Reported Pain Level 5 Pain Score Pain Score 5,3: Self Report Interventions Used Interventions Used By Clinicians Activity or ADL's,Education, Electrical Stimulation, Exercise,Heat,Ice,Sitting, Standing Upper Extremity Range of Motion Scapular/ Shoulder Range of Motion Right Scapular/Shoulder Range of Motion supine AROM shoulder flex: 75 Comments degrees supine PROM shoulder flex: 100 degrees supine PROM shoulder ER: 30 degrees at 75 degrees abduction supine PROM shoulder IR: 40 degrees at 75 degrees abduction Left Scapular/Shoulder Range of M
== END 2021-02-20 23:59 | disposition home or self-care (01) ==
LOC: CHSPT 14:25
DX: M75.02 Adhesive capsulitis of left shoulder (principal); M75.01 Adhesive capsulitis of right shoulder
CPT/HCPCS: 97014; 97110; 97140; 97161; 97530; G0283

== ENCOUNTER 2020-11-27 13:55 | Outpatient (RCR) | payer MEDICARE, MEDICAID, SELFPAY ==
--- NOTE | 2020-11-27 15:15 | OTOPEVAL ---
Thank you for referring Ajit Tyler to [facility] [place].? The patient is scheduled to be seen for therapy? ____x/week for ___ weeks. Please review, sign, date and return this plan of care MAXIM. I agree with and certify that the following plan of care is medically necessary. Referring Physician Date Admitting Provider: Attending Provider: Ilan Pearson Referring Provider: *OT Outpatient Evaluation Start: 11/27/20 14:00 Freq: Status: Active Protocol: Document 11/27/20 14:01 [facility] [place] (Rec: 11/27/20 15:14 [facility] [id number]) Therapy Assessment Status Assessment Status Assessment Status Evaluation Outpatient Past Medical History Musculoskeletal History Hx Orthopedic Surgery Yes: C4-C7 fusion in 2014 Evaluation Information Problem Diagnosis decreased ROM, decreased strength, hand pain Onset 11/02/20 Cause tetraplegia Subjective Information Mr. Tyler had a L shoulder Query Text:As Reported By Patient/ manipulation performed on 11/20 Family . Since patient was last discharged from outpatient OT services patient reports that he is able to grasp more objects with his hands and is feeding himself much better. After feeding himself he is able to poultry picker his plate and take it to the counter. Patient states that he eats 2 meals/day and is feeding himself ~50%. Patient is unable to dress himself and is unable to perform toileting hygiene. Patient would like to work on moving his hands more and get them stronger so that he is able to perform more ADLs. Previous Treatments Previous Treatments For This Problem outpatient OT services at this facility Prior Level of Function Activity Level (Last 3 Months) Occupation disabled Hand Dominance Right Activity of Daily Living Ability Needs Some Help Indoor/Home Mobility Needs Some Help Community Mobility Needs Some Help Stairs Ability Needs Some Help Functional Cognition (Planning, Shopping Independent , Taking Medications) Cooking No Cleaning No Laundry No Shopping No
--- NOTE | 2020-11-27 15:19 | OTOPEVAL ---
Thank you for referring Ajit Tyler to [facility].? The patient is scheduled to be seen for therapy? ____x/week for ___ weeks. Please review, sign, date and return this plan of care MAXIM. I agree with and certify that the following plan of care is medically necessary. Referring Physician Date Admitting Provider: Attending Provider: Ilan Pearson Referring Provider: *OT Outpatient Evaluation Start: 11/27/20 14:00 Freq: Status: Active Protocol: Document 11/27/20 14:01 [facility] [place]Rec: 11/27/20 15:14 [facility] [id number] Therapy Assessment Status Assessment Status Assessment Status Evaluation Outpatient Past Medical History Musculoskeletal History Hx Orthopedic Surgery Yes: C4-C7 fusion in 2014 Evaluation Information Problem Diagnosis decreased ROM, decreased strength, hand pain Onset 11/02/20 Cause tetraplegia Subjective Information Mr. Tyler had a L shoulder Query Text:As Reported By Patient/ manipulation performed on 11/20 Family . Since patient was last discharged from outpatient OT services patient reports that he is able to grasp more objects with his hands and is feeding himself much better. After feeding himself he is able to pickle maker his plate and take it to the counter. Patient states that he eats 2 meals/day and is feeding himself ~50%. Patient is unable to dress himself and is unable to perform toileting hygiene. Patient would like to work on moving his hands more and get them stronger so that he is able to perform more ADLs. Previous Treatments Previous Treatments For This Problem outpatient OT services at this facility Prior Level of Function Activity Level (Last 3 Months) Occupation disabled Hand Dominance Right Activity of Daily Living Ability Needs Some Help Indoor/Home Mobility Needs Some Help Community Mobility Needs Some Help Stairs Ability Needs Some Help Functional Cognition (Planning, Shopping Independent , Taking Medications) Cooking No Cleaning No Laundry No Shopping No
--- NOTE | 2020-12-28 15:52 | OTOPEVAL ---
Thank you for referring Ajit Tyler to [facility] [place].? The patient is scheduled to be seen for therapy? ____x/week for ___ weeks. Please review, sign, date and return this plan of care MAXIM. I agree with and certify that the following plan of care is medically necessary. Referring Physician Date Admitting Provider: Attending Provider: Ilan Pearson Referring Provider: LeonardOT Outpatient Evaluation Start: 11/27/20 14:00 Freq: Status: Active Protocol: Document 12/28/20 15:01 [facility] [place] (Rec: 12/28/20 15:51 [facility] [id number]) Therapy Assessment Status Assessment Status Assessment Status Re-evaluation Outpatient Past Medical History Musculoskeletal History Hx Orthopedic Surgery Yes: C4-C7 fusion in 2014 Evaluation Information Problem Subjective Information Patient reports that he has Query Text:As Reported By Patient/ been able to hold a built up Family utensil without the universal cuff and is able to poultry picking machine tender dishes and take them to the sink. Patient states that it is getting easier to poultry picking machine tender the remote and dial his phone as well as use buttons on the remote. Patient is now able to open a car door. Patient continues to stuggle with dressing and holding onto things. Pain Assessment Timing of Pain Assessment Timing of Pain Assessment Re-assessment Pain Scale Pain Scale Used Numeric (1 - 10) Self Report Pain Assessment Lower Back Reported Pain Level 5 Bilateral Shoulder(s) Reported Pain Level 5 Pain Score Pain Score 5,5: Self Report Interventions Used Interventions Used By Clinicians Activity or ADL's,Exercise Upper Extremity Range of Motion Elbow/Forearm Range of Motion Right Forearm Supination - Active 38 Left Forearm Supination - Active 38 Wrist Range of Motion Right Wrist Extension - Active 45 Left Wrist Extension - Active 35 Finger Range of Motion Right Finger Range of Motion Comments MCP flexion at ~ 55 degrees Left Finger Range of Motion Comments MCP flexion at ~ 70 degrees Sensation Assessment Location Bilateral 2 Point Discrimination Comments patient reports tingling feeling that goes down his arm into his fingers and seems to more frequent after use. Complex ADL Assessment Upper Body Dressing Putting On/Removing Shirt: Includes Moderate Assistance X 1 Buttoning if Applicable Lower Body Dressing Putting On/Removing Pants/Underw
--- NOTE | 2021-02-04 07:51 | OTOPEVAL ---
Thank you for referring Ajit Tyler to [facility].? The patient is scheduled to be seen for therapy? ____x/week for ___ weeks. Please review, sign, date and return this plan of care MAXIM. I agree with and certify that the following plan of care is medically necessary. Referring Physician Date Admitting Provider: Attending Provider: Ilan Pearson Referring Provider: *OT Outpatient Evaluation Start: 11/27/20 14:00 Freq: Status: Active Protocol: Document 02/01/21 16:06 [facility] [place] (Rec: 02/01/21 16:56 [facility] [place] [id number]) Therapy Assessment Status Assessment Status Assessment Status Progress Outpatient Past Medical History Musculoskeletal History Hx Orthopedic Surgery Yes: C4-C7 fusion in 2014 Evaluation Information Problem Subjective Information Patient arrives to OT and Query Text:As Reported By Patient/ states no new concerns. He Family states that he is now able to consistently open car doors and door knobs. His primary goals at this time are to be able to use his hands more for gripping, specifically any pulling or pushing (ex: pulling coat on, pullling pants up, etc.) Patient states that he continues to perform home programming exercises. Pain Assessment Timing of Pain Assessment Timing of Pain Assessment Re-assessment Pain Scale Pain Scale Used Numeric (1 - 10) Self Report Pain Assessment Lower Back Reported Pain Level 4 Bilateral Shoulder(s) Reported Pain Level 4 Pain Score Pain Score 4,4: Self Report Interventions Used Interventions Used By Clinicians Exercise,Heat,Manual Therapy Techniques Upper Extremity Range of Motion Elbow/Forearm Range of Motion Right Forearm Supination - Active 45 Left Forearm Supination - Active 50 Wrist Range of Motion Right Wrist Extension - Active 45 Left Wrist Extension - Active 40 Finger Range of Motion Right Finger Range of Motion Comments PROM for MCP flexion: ~80 degrees PROM for PIP Flexion: ~90 degrees AROM for MCP flexion: ~65 degrees AROM for PIP flexion: ~45 degrees Left Finger Range of Motion Comments PROM for MCP flexion: ~70-75 degrees
== END 2021-02-25 23:59 | disposition home or self-care (01) ==
LOC: CHSOT 13:55
DX: G82.50 Quadriplegia, unspecified (principal)
CPT/HCPCS: 97110; 97165; 97530; 97535

== ENCOUNTER 2021-02-22 14:29 | Outpatient (RCR) | payer MEDICARE, MEDICAID, SELFPAY ==
--- NOTE | 2021-04-22 17:35 | PTOPEVAL ---
Thank you for referring Ajit Tyler to [facility].? The patient is scheduled to be seen for therapy? __3__x/week for 6 visits. Please review, sign, date and return this plan of care MAXIM. I agree with and certify that the following plan of care is medically necessary. Referring Physician Date Admitting Provider: Attending Provider: DESIREE ADLER Referring Provider: *PT Outpatient Evaluation Start: 03/27/21 16:42 Freq: Status: Active Protocol: Document 04/22/21 16:22 [facility] (Rec: 04/22/21 17:31 [facility] [id number]) Outpatient Past Medical History Musculoskeletal History Hx Orthopedic Surgery Yes: C4-C7 fusion in 2014 Evaluation Information Problem Diagnosis s/p left shoulder arthroscopy, right shoulder pain Onset 11/20/20 Subjective Information Pt. reports that he is Query Text:As Reported By Patient/ noticing improving ability to Family perform reaching tasks. He states that he noticed he was able to flip the visor in the car up without assist just recently. He reports that he can reach to scratch his face and recently began feeding himself without assist. He states that he still feels he is capable of more progress with shoulder mobility. His ultimate goal remains to be able to wash his hair and be able to clasp the hands behind the head. Pain Assessment Timing of Pain Assessment Timing of Pain Assessment Pre-Treatment Pain Scale Pain Scale Used Numeric (1 - 10) Self Report Pain Assessment Right Shoulder(s) Reported Pain Level 5 Left Shoulder(s) Reported Pain Level 5 Pain Score Pain Score 5,5: Self Report Interventions Used Interventions Used By Clinicians Activity or ADL's,Exercise, Mobilization,Manual Therapy Techniques Upper Extremity Range of Motion General Upper Extremity Range of Motion Gross Upper Extremity Range of Motion -supine AROM R shoulder Comments flexion: 64 degrees -supine PROM shoulder R flexion: 132 degrees -supine PROM R shoulder ER: 68 degrees -supine PROM R shoulder IR: 47 degrees
--- NOTE | 2021-06-03 15:10 | PTOPEVAL ---
Thank you for referring Ajit Tyler to [facility].? The patient is scheduled to be seen for therapy? ____x/week for ___ weeks. Please review, sign, date and return this plan of care MAXIM. I agree with and certify that the following plan of care is medically necessary. Referring Physician Date Admitting Provider: Attending Provider: DESIREE ADLER Referring Provider: LeonardPT Outpatient Evaluation Start: 03/27/21 16:42 Freq: Status: Active Protocol: Document 05/13/21 16:00 [facility] (Rec: 06/03/21 14:20 [facility] [id number]) Therapy Assessment Status Assessment Status Assessment Status Re-evaluation Outpatient Past Medical History Musculoskeletal History Hx Orthopedic Surgery Yes: C4-C7 fusion in 2014 Evaluation Information Problem Diagnosis s/p left shoulder arthroscopy, right shoulder pain Onset 11/20/20 Subjective Information patient reports he continues Query Text:As Reported By Patient/ to feel improvement with Family passive stretching of the shoulders. he reports he has an order to continue skilled PT. he reports he gets the best stretch when he comes to therapy. he reports he is not able to stretch his shoulders or exercises as well at home. Pain Assessment Timing of Pain Assessment Timing of Pain Assessment Assessment Pain Scale Pain Scale Used Numeric (1 - 10) Self Report Pain Assessment Right Shoulder(s) Reported Pain Level 4 Left Shoulder(s) Reported Pain Level 4 Pain Score Pain Score 4,4: Self Report Interventions Used Interventions Used By Clinicians Activity or ADL's,Education, Exercise Upper Extremity Range of Motion General Upper Extremity Range of Motion Gross Upper Extremity Range of Motion -supine AROM R shoulder Comments flexion: 105 degrees -supine PROM shoulder R flexion: 138 degrees -supine PROM R shoulder ER: 78 degrees -supine PROM R shoulder IR: 76 degrees -supine AROM L shoulder flexion: 95 degrees -supine PROM L shoulder flexion: 130 degrees -supine PROM L shoulder ER: 80 degrees -supine PROM L shoulder IR: 80
== END 2021-05-29 17:00 | disposition still patient (30) ==
LOC: CHSPT 14:29
DX: M75.02 Adhesive capsulitis of left shoulder (principal); M75.01 Adhesive capsulitis of right shoulder
CPT/HCPCS: 97014; 97110; 97140; 97530; G0283

== ENCOUNTER 2021-03-01 14:44 | Outpatient (RCR) | payer MEDICARE, MEDICAID, SELFPAY ==
--- NOTE | 2021-03-27 17:21 | OTOPEVAL ---
Thank you for referring Ajit Tyler to [facility].? The patient is scheduled to be seen for therapy? ____x/week for ___ weeks. Please review, sign, date and return this plan of care MAXIM. I agree with and certify that the following plan of care is medically necessary. Referring Physician Date Admitting Provider: Attending Provider: BARAK MCKEON Referring Provider: LeonardOT Outpatient Evaluation Start: 03/27/21 08:51 Freq: Status: Active Protocol: Document 03/27/21 16:19 [facility] [place] (Rec: 03/27/21 17:21 [facility] [place] [id number]) Therapy Assessment Status Assessment Status Assessment Status Re-evaluation Outpatient Past Medical History Musculoskeletal History Hx Orthopedic Surgery Yes: C4-C7 fusion in 2014 Evaluation Information Problem Subjective Information Patient states that he is able Query Text:As Reported By Patient/ to consistently clean up Family after himself after meals and continues to be able to feed himself more independently and efficiently. Patient has been working on pulling his pants up as well as donning a shirt. Pain Assessment Timing of Pain Assessment Timing of Pain Assessment Re-assessment Pain Scale Pain Scale Used Numeric (1 - 10) Self Report Pain Assessment Bilateral Shoulder(s) Reported Pain Level 5 Lower Back Reported Pain Level 5 Pain Score Pain Score 5,5: Self Report Interventions Used Interventions Used By Clinicians Heat,Sitting Upper Extremity Range of Motion Finger Range of Motion Bilateral Finger Range of Motion Comments AROM for R MCP's ~75 degrees AROM for L MCP's ~65 degrees AROM for R PIP's ~60 degrees AROM for L PIP's~65 degrees Thumb Range of Motion Bilateral Thumb Range of Motion Comments patient opposes B thumbs to volar/middle portion of the distal phalanx of index fingers. patient opposes B thumbs to lateral/middle portion of distal phalanx of small fingers Upper Extremity Muscle Strength Testing Elbow/Forearm Left Elbow Flexion Strength 4- Good - Wrist Strength Left Wrist Flexion Strength 3+ Fair + Wrist Extension Strength 3+ Fair + Hand Mortgage Banker/Pinch Strength Assessment Hand Right Mortgage Banker Strength (lbs) 9 Hand Mortgage Banker/Pinch Strength Comments OT assists with stabilization of dynamometer Left Gri
--- NOTE | 2021-05-01 16:19 | OTOPEVAL ---
Thank you for referring Ajit Tyler to [facility].? The patient is scheduled to be seen for therapy? ____x/week for ___ weeks. Please review, sign, date and return this plan of care MAXIM. I agree with and certify that the following plan of care is medically necessary. Referring Physician Date Admitting Provider: Attending Provider: BARAK MCKEON Referring Provider: LeonardOT Outpatient Evaluation Start: 03/27/21 08:51 Freq: Status: Active Protocol: Document 05/01/21 15:00 [facility] [place] (Rec: 05/01/21 16:18 [facility] [place] [id number]) Therapy Assessment Status Assessment Status Assessment Status Progress Outpatient Past Medical History Musculoskeletal History Hx Orthopedic Surgery Yes: C4-C7 fusion in 2014 Evaluation Information Problem Subjective Information Patient arrives to OT and Query Text:As Reported By Patient/ reports no new concerns. He Family continues to mention that he is slowly progressing in his ability to grasp items and use his hands. Pain Assessment Timing of Pain Assessment Timing of Pain Assessment Re-assessment Pain Scale Pain Scale Used Numeric (1 - 10) Self Report Pain Assessment Bilateral Shoulder(s) Reported Pain Level 4 Lower Back Reported Pain Level 4 Pain Score Pain Score 4,4: Self Report Interventions Used Interventions Used By Clinicians Activity or ADL's,Exercise, Position Change Upper Extremity Range of Motion General Upper Extremity Range of Motion Gross Upper Extremity Range of Motion AROM R PIP flexion: ~75 Comments degrees AROM L PIP flexion: ~50-60 degrees R thumb opposition to distal phalanx of index L thumb opposition to index middle phalanx Upper Extremity Muscle Strength Testing General Upper Extremity Strength Gross Upper Extremity Strength Comments L elbow flexion: 4-/5 L wrist flex/ext: 4-/5 L finger flexion: 2-/5 R finger flexion: 3-/5 Finger strength is assessed this session vs corporate director of human resources strength as do not feel that dynamometer is an accurate representation of patient's corporate director of human resources strength/function General Exercise General Exercises Side Bilateral Exercise Description PROM B finger flexion each Query Text:Record Sets, Reps, finger separately x 10 min Resistance,
--- NOTE | 2021-05-15 17:06 | PCOTNOTE ---
On 05/15/21, the student, [Ana Laura Overton ], provided care and completed [facility] documentation on this patient. I have reviewed the student's documentation and agree with the findings. MS
== END 2021-05-29 18:00 | disposition still patient (30) ==
LOC: CHSOT 14:44
DX: G82.50 Quadriplegia, unspecified (principal)
CPT/HCPCS: 97110; 97140; 97530

== ENCOUNTER 2021-06-03 14:46 | Outpatient (RCR) | payer MEDICARE, MEDICAID, SELFPAY ==
--- NOTE | 2021-06-17 08:51 | PTOPEVAL ---
Thank you for referring Ajit Tyler to [facility].? The patient is scheduled to be seen for therapy? __2__x/week for 8 visits. Please review, sign, date and return this plan of care MAXIM. I agree with and certify that the following plan of care is medically necessary. Referring Physician Date Admitting Provider: Attending Provider: DESIREE ADLER Referring Provider: LeonardPT Outpatient Evaluation Start: 06/03/21 17:35 Freq: Status: Active Protocol: Document 06/12/21 16:00 [facility] (Rec: 06/14/21 09:05 [facility] [id number]) Therapy Assessment Status Assessment Status Assessment Status Progress Outpatient Past Medical History Musculoskeletal History Hx Orthopedic Surgery Yes: C4-C7 fusion in 2014 Evaluation Information Problem Diagnosis s/p left shoulder arthroscopy, right shoulder pain Onset 11/20/20 Subjective Information Pt. reports that he continues Query Text:As Reported By Patient/ to note small improvements in Family his motion and function. She reports that he is able to now cross his arms, which he was unable to do several weeks ago . He notices with stacking objects overhead his height has improved. He states that the left shoulder mobility is still behind the right. He reports noticing progress with his OT as well as stresses that he is concerned that without the guidance that he recieves in therapy his progress will decline overall. Pain Assessment Pain Scale Pain Scale Used Numeric (1 - 10) Self Report Pain Assessment Bilateral Shoulder(s) Reported Pain Level 5 Pain Score Pain Score 5: Self Report Interventions Used Interventions Used By Clinicians Activity or ADL's,Exercise, Manual Therapy Techniques Upper Extremity Range of Motion General Upper Extremity Range of Motion Gross Upper Extremity Range of Motion -right shoulder flexion AROM Comments in supine 112 degrees -right shoulder flexion AROM in sitting 77 degrees -left shoulder AROM in supine 99 degrees -left shoulder AROM in sitting 71 degrees -right shoulder ER PROM 88
--- NOTE | 2021-07-11 13:33 | PTOPEVAL ---
Thank you for referring Ajit Tyler to [facility].? The patient is scheduled to be seen for therapy? ____x/week for ___ weeks. Please review, sign, date and return this plan of care MAXIM. I agree with and certify that the following plan of care is medically necessary. Referring Physician Date Admitting Provider: Attending Provider: DESIREE ADLER Referring Provider: *PT Outpatient Evaluation Start: 06/03/21 17:35 Freq: Status: Active Protocol: Document 07/10/21 16:00 [facility] (Rec: 07/10/21 17:39 [facility] [id number]) Therapy Assessment Status Assessment Status Assessment Status Re-evaluation Outpatient Past Medical History Musculoskeletal History Hx Orthopedic Surgery Yes: C4-C7 fusion in 2014 Evaluation Information Problem Diagnosis s/p left shoulder arthroscopy, right shoulder pain Onset 11/20/20 Subjective Information Ajit states that his ability Query Text:As Reported By Patient/ to raise his arms is getting Family better and his strength is getting better. He states that he would like to continue working on having the strength to straighten his elbow. His right elbow is doing well with this, but his left has difficulties. he reports he is still unable to perform his own dressing, hygeine, or self care due to limited UE use and mobility. he comes to therapy with new orders to continue skilled PT. Pain Assessment Timing of Pain Assessment Timing of Pain Assessment Pre-Treatment Pain Scale Pain Scale Used Numeric (1 - 10) Self Report Pain Assessment Bilateral Shoulder(s) Reported Pain Level 4 Pain Description Aching Greatest Pain Intensity 8 Pain Score Pain Score 4: Self Report Interventions Used Interventions Used By Clinicians Education,Exercise,Joint Mobilization Upper Extremity Range of Motion Scapular/ Shoulder Range of Motion Right Shoulder Flexion - Active 105 Shoulder Flexion - Passive 110 Shoulder Medial Rotation - Active 65 Shoulder Medial Rotation - Passive 80 Shoulder Lateral Rotation - Active 40 Shoulder Lateral Rotation - Passive 55 Scapular/Shoulder Range of Motion All measurements taken in Comments supine Left Shoulder Flexion - Active 40 Shoulder Flexion - Passive 125 Shoulder Medial Rotation - Active
[2021-08-28 16:55] VITALS: BP_SYST 81; BP_SYST 96
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
== END 2021-09-04 18:00 | disposition still patient (30) ==
LOC: CHSPT 14:46
DX: M75.02 Adhesive capsulitis of left shoulder (principal); M75.01 Adhesive capsulitis of right shoulder
CPT/HCPCS: 97110; 97140

== ENCOUNTER 2021-06-03 14:49 | Outpatient (RCR) | payer MEDICARE, MEDICAID, SELFPAY ==
--- NOTE | 2021-06-24 16:59 | OTOPEVAL ---
Thank you for referring Ajit Tyler to [facility] [place].? The patient is scheduled to be seen for therapy? ____x/week for ___ weeks. Please review, sign, date and return this plan of care MAXIM. I agree with and certify that the following plan of care is medically necessary. Referring Physician Date Admitting Provider: Attending Provider: BARAK MCKEON Referring Provider: LeonardOT Outpatient Evaluation Start: 06/03/21 15:32 Freq: Status: Active Protocol: Document 06/24/21 15:46 [facility] [place] (Rec: 06/24/21 16:59 [facility] [place] [id number]) Therapy Assessment Status Assessment Status Assessment Status Progress Outpatient Past Medical History Musculoskeletal History Hx Orthopedic Surgery Yes: C4-C7 fusion in 2014 Evaluation Information Problem Subjective Information Patient transitions from PT to Query Text:As Reported By Patient/ OT and reports the following: Family Patient was able to initiate vacuuming at home today. He states that it did not go well but was able to do a little bit. His ability to feed himself continues to improve and becomes more efficient. Patient states that he is almost able to pull his pants up over his behind. Patient is doing more with buckling his seatbelt and opening car doors. Pain Assessment Timing of Pain Assessment Timing of Pain Assessment Re-assessment Pain Scale Pain Scale Used Numeric (1 - 10) Self Report Pain Assessment Bilateral Shoulder(s) Reported Pain Level 6 Lower Back Reported Pain Level 6 Pain Score Pain Score 6,6: Self Report Interventions Used Interventions Used By Clinicians Heat Upper Extremity Range of Motion General Upper Extremity Range of Motion Gross Upper Extremity Range of Motion AROM for L PIPs: ~55 degrees Comments AROM for R PIPs: ~80 degrees Patient opposes L thumb to volar PIP of the L index finger Upper Extremity Muscle Strength Testing General Upper Extremity Strength Gross Upper Extremity Strength Comments L elbow flexion: 4-/5 L wrist flex/ext: 4/5 L finger flexion/ext: 2/5 R finger flexion/ext: 2+/5 Complex ADL Assessment Toileting Toileting Comment Per patient report, patient is able to perform ~40% of task. He requires assist to perform
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
== END 2021-09-04 18:00 | disposition still patient (30) ==
LOC: CHSOT 14:49
DX: G82.50 Quadriplegia, unspecified (principal)
CPT/HCPCS: 97110; 97140; 97530; 97535

== ENCOUNTER 2021-07-27 11:04 | Inpatient (IN) | payer MEDICARE, MEDICAID, SELFPAY ==
[2021-07-27] VITALS (13 sets, daily range): BP systolic 126–170; BP diastolic 67–84; PULSE 72–100; RESP 18–20; TEMP 37.5–39.1; O2SAT 95–98; BMI 22.1
--- NOTE | ~2021-07-27 | CT_ITS ---
EXAMINATION: CT BRAIN W/O DATE: 07/27/2021 12:43 INDICATION: Weakness and fever TECHNIQUE: Computed tomography (CT) of the head was performed without intravenous contrast. The dose- length product was 605.33 mGy-cm. Automated exposure control and iterative reconstruction technique w ere employed. COMPARISON: No prior studies for comparison. FINDINGS: Normal brain parenchymal volume for age. Normal ching-white differentiation. No acute intrac ranial hemorrhage, infarction, mass or mass effect. No ventriculomegaly or midline shift. Midline sagittal images demonstrate a normal corpus callosum, c raniovertebral junction and sella turcica. Basilar cisterns are patent. Paranasal sinuses and mastoids are pneumatized. No depressed skull fractures. IMPRESSION: 1. No acute intracranial abnormality. Reviewed, dictated and finalized at location A.
--- NOTE | ~2021-07-27 | XR_ITS ---
EXAMINATION: XR chest 1V portable 07/27/2021 12:44 INDICATION: Weakness and fever PROCEDURE: AP portable chest COMPARISON: No prior studies for comparison. FINDINGS: The lungs are clear. The cardiomediastinal silhouette is within normal limits. There are no pleural effusions. There is no pneumothorax suspected. IMPRESSION: 1: NO ACUTE CARDIOPULMONARY DISEASE. Reviewed, dictated and finalized at location A.
--- NOTE | ~2021-07-27 | CT_ITS ---
EXAMINATION: CT abdomen pelvis wo con DATE: 07/27/2021 12:44 INDICATION: Weakness and fever. Body aches. Fatigue. TECHNIQUE: Computed tomography (CT) of the abdomen and pelvis was performed without intravenous contr ast. The dose-length product was 825.85 mGy-cm. Automated exposure control and iterative reconstructi on technique were employed. COMPARISON: None. FINDINGS: There is right lower lobe atelectasis. Heart size normal. No significant pleural or pericar dial effusion. There is atherosclerosis of the aorta without aneurysm. Bladder wall is mildly thicken ed, possibly due to underdistention there are air-fluid levels throughout the small bowel, possibly i leus. There are nonobstructing bilateral renal stones. No ureteral stones. Mild right hydronephrosis. Prostate gland is mildly enlarged. There is mild thickening of the ascending and proximal transverse colon. Gallbladder is present. Moderate-severe lower thoracic and lumbar spondylosis. No acute osseo us abnormality. IMPRESSION: 1. Mild thickening of the ascending and proximal transverse colon, suspicious for colitis, most likel y infectious or inflammatory. Air-fluid levels in small bowel may reflect ileus. 2: Mild bladder wall thickening which may be due to underdistention or cystitis. 3: Right lower lobe atelectasis. 4: Nonobstructing bilateral nephrolithiasis. Reviewed, dictated and finalized at location A. IMPRESSION: 1. Mild thickening of the ascending and proximal transverse colon, suspicious f or colitis, most likely infectious or inflammatory. Air-fluid levels in small b owel may reflect ileus. 2: Mild bladder wall thickening which may be due to underdistention or cystitis . 3: Right lower lobe atelectasis. 4: Nonobstructing bilateral nephrolithiasis.
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
[2021-07-27] MEDS: MORPHINE SULFATE (*CRX) 4 MG/ML INJ IM (11:57)
[2021-07-27] MEDS: ONDANSETRON INJ 4 MG/2 ML VIAL IV PUSH ×2 (12:02→17:30)
[2021-07-27] MEDS: SODIUM CHLORIDE 0.9% IV 2,000 ML 999 ML IV CONT (12:03)
[2021-07-27 12:07] LABS: Basophils Absolute Auto 0.03 K/mm3 (0.00-0.10); Basophils Percent Auto 0.3 % (0.0-1.0); Hematocrit 39.5 % (40.0-54.0); Hemoglobin 12.9 g/dL (14.0-18.0); Immature Granulocyte Absolute 0.07 K/mm3 (0.00-0.00); Immature Granulocyte Percent A 0.6 % (0.0-0.0); Lymphocytes Absolute Auto 0.74 K/mm3 (1.10-4.50); Lymphocytes Percent Auto 6.5 % (18.0-42.0); Mean Corpuscular HGB Conc 32.7 g/dL (32.0-36.0); Mean Corpuscular Hemoglobin 27.7 pg (27.0-31.0); Mean Corpuscular Volume 84.9 fL (78.0-102.0); Mean Platelet Volume 10.9 fl (8.7-11.0); Monocytes Absolute Auto 0.41 K/mm3 (0.10-0.90); Monocytes Percent Auto 3.6 % (2.0-11.0); Neutrophils Absolute Auto 10.1 K/mm3 (1.7-7.2); Platelet Count Result 185 K/mm3 (150-420); Red Blood Count 4.65 M/mm3 (4.70-6.10); Red Cell Distribution Width 13.2 % (11.6-14.4); White Blood Count 11.3 K/mm3 (4.8-10.8)
[2021-07-27 12:10] LABS: Influenza A QL RT-PCR Negative (Negative); Influenza B QL RT-PCR Negative (Negative); SARS-CoV-2 RNA PCR Negative (Negative)
[2021-07-27 12:20] LABS: Add Urine Microscopic? YES; Appearance Urine Clear (Clear); Bilirubin Urine Negative (Negative); Blood Urine 2+ (Negative); Color Urine Light Yellow (Yellow); Glucose Urine UA Negative (Negative); Ketones Urine 3+ (Negative); Leukocyte Esterase Ur 2+ LEU/UL (Negative); Nitrate Urine Negative (Negative); Protein Urine Negative (Negative); Urobilinogen Urine 0.2 mg/dL (0.2-1.0); pH Urine 5.5 (5.0-8.0)
[2021-07-27 12:28] LABS: Lactic Acid Reflex 1.3 mmol/L (0.4-2.0)
--- NOTE | 2021-07-27 12:28 | PC.NURSE ---
pt to ct per stretcher with quarter lining smoother and xray staff
[2021-07-27 12:31] LABS: Alanine Aminotransferase 40 U/L (16-63); Albumin Level 3.3 g/dL (3.4-5.0); Alkaline Phosphatase 145 U/L (46-116); Anion Gap 10 mmol/L (8-16); Aspartate Amino Transferase 46 U/L (15-37); Bilirubin,Total 0.9 mg/dL (0.00-1.00); Blood Urea Nitrogen 22 mg/dL (7-18); Carbon Dioxide 24 mmol/L (21-32); Chloride 100 mmol/L (98-108); Estimated CRCL calculation 55 ml/min; Estimated Glomerular Filt Rate 53; Glucose 101 mg/dL (70-99); Osmolality Calculated 281 mOsm/kg (285-295); Potassium 4.1 mmol/L (3.5-5.1); Sodium 134 mmol/L (136-145); Total Protein 7.4 g/dL (6.4-8.2)
[2021-07-27 12:31] LABS: Bacteria Urine 1+ /hpf; WBC Urine 21-30 /hpf (0-3)
[2021-07-27 12:37] LABS: CRP 24.6 mg/dL (0.0-0.9)
[2021-07-27 13:11] LABS: Erythrocyte Sedimentation Rate 38 mm/hr (0-20)
[2021-07-27] MEDS: ACETAMINOPHEN 325 MG TABLET 650 MG PO ×2 (13:20→19:24)
[2021-07-27] MEDS: SODIUM CHLORIDE 0.9% IV 1,000 ML 125 ML IV CONT (13:21)
[2021-07-27] MEDS: ACETAMINOPHEN 325 MG TABLET PO (13:21)
--- NOTE | 2021-07-27 14:30 | ADMGEN ---
This patient, Ajit Tyler, was admitted to 2nd Floor Room 208-1. Patient/family oriented to hospital policies and general routines including ID bracelet, bed and alarms, visiting hours, pain management, procedures, bathroom and other care routines, personal items, smoking policy, room service/diet, and visiting hours. Information on how to activate the Rapid Response Team has been discussed. Patient/Family are encouraged to report perceived risks to care and to ask questions if they do not understand what they are told or what they should do.
--- NOTE | 2021-07-27 14:30 | PC.NURSE ---
edwige goldberg notified of admission. voiced understanding.
[2021-07-27] MEDS: SODIUM CHLORIDE 0.9% IV 1,000 ML 75 ML IV CONT (15:04)
--- NOTE | 2021-07-27 15:45 | PC.NURSE ---
Upon assessment, pt resting in bed, is alert and voices no concerns at this time. Pt is watching TV and has special tap call button at his reach. Pt states he will call if needed.
[2021-07-27] MEDS: IBUPROFEN 600 MG TABLET PO ×2 (17:24→23:33)
--- NOTE | 2021-07-27 17:30 | PC.NURSE ---
Pt noted increased in temp. of 101.4....Pt also c/o abd cramping and some nausea p eating dinner, pt states he hasn't eaten in about 2 days. Zofran given for nausea and Ibuprofen given as per order for increased temp. Pts family in room to visit, call navarrete at pt side for easy push if needed.
[2021-07-28] VITALS (9 sets, daily range): BP systolic 112–142; BP diastolic 63–77; PULSE 69–83; RESP 20; TEMP 37.1–38.2; O2SAT 96–97
[2021-07-28] MEDS: SODIUM CHLORIDE 0.9% IV 1,000 ML 75 ML IV CONT ×2 (03:02→18:49)
[2021-07-28 06:27] LABS: Basophils Absolute Auto 0.02 K/mm3 (0.00-0.10); Basophils Percent Auto 0.2 % (0.0-1.0); Eosinophils Absolute Auto 0.02 K/mm3 (0.02-0.50); Eosinophils Percent Auto 0.2 % (1.0-6.0); Hematocrit 33.5 % (40.0-54.0); Hemoglobin 11.1 g/dL (14.0-18.0); Immature Granulocyte Absolute 0.04 K/mm3 (0.00-0.00); Immature Granulocyte Percent A 0.5 % (0.0-0.0); Lymphocytes Percent Auto 6.9 % (18.0-42.0); Mean Corpuscular HGB Conc 33.1 g/dL (32.0-36.0); Mean Corpuscular Volume 84.6 fL (78.0-102.0); Mean Platelet Volume 11.2 fl (8.7-11.0); Monocytes Percent Auto 6.9 % (2.0-11.0); Neutrophils Absolute Auto 7.4 K/mm3 (1.7-7.2); Neutrophils Percent Auto 85.3 % (50.0-70.0); Platelet Count Result 131 K/mm3 (150-420); Red Blood Count 3.96 M/mm3 (4.70-6.10); Red Cell Distribution Width 13.3 % (11.6-14.4); White Blood Count 8.6 K/mm3 (4.8-10.8)
[2021-07-28 06:38] LABS: Anion Gap 8 mmol/L (8-16); Blood Urea Nitrogen 15 mg/dL (7-18); Calcium 8.3 mg/dL (8.5-10.1); Carbon Dioxide 24 mmol/L (21-32); Chloride 104 mmol/L (98-108); Estimated CRCL calculation 70 ml/min; Estimated Glomerular Filt Rate > 60; Glucose 92 mg/dL (70-99); Osmolality Calculated 282 mOsm/kg (285-295); Potassium 3.8 mmol/L (3.5-5.1); Sodium 136 mmol/L (136-145)
[2021-07-28] MEDS: ACETAMINOPHEN 325 MG TABLET 650 MG PO ×2 (06:57→20:10)
[2021-07-28] MEDS: PANTOPRAZOLE SODIUM IV 40 MG VIAL IV PUSH (08:08)
[2021-07-28] MEDS: ONDANSETRON INJ 4 MG/2 ML VIAL IV PUSH (08:33)
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
[2021-07-28] MEDS: Linaclotide [Linzess] 145 mcg capsule 1 EACH PO (10:00)
--- NOTE | 2021-07-28 12:31 | PHAR ---
HOME MEDICATIONS VERIFIED BY PHARMACY (OVER THE PHONE) LINZESS 145 MCG CAPSULES
--- NOTE | 2021-07-28 12:53 | PHAR ---
HOME MED UNABLE TO VERIFY AZO CRANBERRY PLUS VITAMIN C TAKE 1 DAILY
[2021-07-28] MEDS: IBUPROFEN 600 MG TABLET PO (15:14)
[2021-07-29 07:54] VITALS: BP 155/68; PULSE 66; RESP 16; TEMP 37.4; O2SAT 97
[2021-07-29 08:27] LABS: Hemoglobin 11.1 g/dL (14.0-18.0); Mean Corpuscular HGB Conc 32.6 g/dL (32.0-36.0); Mean Corpuscular Hemoglobin 27.4 pg (27.0-31.0); Platelet Count Result 152 K/mm3 (150-420); Red Blood Count 4.05 M/mm3 (4.70-6.10); Red Cell Distribution Width 13.5 % (11.6-14.4)
[2021-07-29 08:39] LABS: Anion Gap 9 mmol/L (8-16); Blood Urea Nitrogen 8 mg/dL (7-18); Calcium 8.3 mg/dL (8.5-10.1); Carbon Dioxide 25 mmol/L (21-32); Chloride 104 mmol/L (98-108); Estimated CRCL calculation 86 ml/min; Estimated Glomerular Filt Rate > 60; Glucose 87 mg/dL (70-99); Osmolality Calculated 283 mOsm/kg (285-295); Potassium 3.5 mmol/L (3.5-5.1); Sodium 138 mmol/L (136-145)
[2021-07-29] MEDS: PANTOPRAZOLE SODIUM IV 40 MG VIAL IV PUSH (09:11)
[2021-07-29] MEDS: Linaclotide [Linzess] 145 mcg capsule 1 EACH PO (09:12)
--- NOTE | 2021-07-29 09:57 | PM.DS ---
DS: Admitting Diagnosis Discharge Date 07/29/2021 Admitting Diagnosis Urinary Tract infection, Sepsis, Fever DS: Discharge Diagnosis Discharge Diagnosis (1) Sepsis: Code(s): A41.9 - Sepsis, unspecified organism Status: Acute Assessment and Plan: IV antibiotics Zosyn we will switch to oral Cipro IV fluids given discontinued this a.m. Patient has remained afebrile Will continue to monitor for signs and symptoms of sepsis (2) Urinary tract infection in male: Code(s): N39.0 - Urinary tract infection, site not specified Status: Acute Assessment and Plan: Urine culture sent off pending Patient to straight cath himself daily Patient having some urinary retention 300 mL post residual patient declined to allow for Santo catheter to be placed Patient to follow-up with urologist (3) Acute dehydration: Code(s): E86.0 - Dehydration Status: Acute Assessment and Plan: IV fluids given Patient able to take oral intake As needed nausea medication no nausea or vomiting in the past 48 hours (4) Acute kidney injury (nontraumatic): Code(s): N17.9 - Acute kidney failure, unspecified Status: Acute Assessment and Plan: BUN and creatinine normal IV fluids have been given (5) Abdominal pain: Code(s): R10.9 - Unspecified abdominal pain Status: Acute Assessment and Plan: Decreased abdominal pain Patient has a history of cholelithiasis Patient is seeing his primary care doctor MAXIM (6) Urinary retention: Code(s): R33.9 - Retention of urine, unspecified Status: Acute Assessment and Plan: Patient had 300 mL post residual urine patient declines Santo catheter at this time Patient to straight cath himself daily Continue your oral antibiotics as directed DS: Summary Hospital Course Reason for hospitalization: Urinary tract infection, sepsis, dehydration, acute kidney injury Hospital Course: This is a 61-year-old male that was admitted to the hospital with sepsis, dehydration, and a urinary tract infection. Patient was treated with IV antibiotic Zosyn and IV fluids as well as given antiemetics for nausea and vomiting. Patient was given antipyretic and anti-inflammatory for fever. Patient's symptoms have since resolved urine culture sent off pending. Patient was straight cath last night after urination and was found to have 300 mL of urine still in bladder patient declined to keep a Santo catheter as he says he straight caths himself at home and has several incontinent episodes as he cannot tell when he has to urinate. Patient states he will follow-up with his urologist who was informed him that he technically does not need a Santo catheter. I explained to patient my concerns patient has remained afebrile he is eating and drinking without any difficulties denies any nausea and vomiting. Patient has less abdominal tenderness minimal tenderness noted. Patient's labs today was potassium 3.5, sodium 138, BUN 8, creatinine 0.85, RBC is 4.05, WBCs of 6.0, hemoglobin is 11.1, Hemaquet is 34.0, platelets are 152. At this time we will plan for patient to be discharged on his oral antibiotics where he will follow-up with his PCP. Explained to patient any anticipatory reasons to return to the emergency room all medications reordered. Time Spent with Patient Time attestation: Total time spent providing and/or coordinating discharge services: Exam Narrative: GENERAL:Well-appearing, well-nourished, and in no acute distress. HEAD:Normocephalic, atraumatic. EYES: PERRLA and EOMI. ENT:? Nares clear, no rhinorrhea or epistaxis. Mucous membranes moist. NECK:? Supple. CHEST:? Clear to auscultation. No respiratory distress. HEART:? Regular rate and rhythm. Normal peripheral pulses. ABDOMEN:? Soft, less tender to palpitation on all quadrants nondistended, normal active bowel sounds. EXTREMITIES: Decreased bilateral hand motions more flaccid.
--- NOTE | 2021-07-29 13:47 | PC.NURSE ---
Pt discharged home with vss. Pt instructed regarding his medications, Doctor follow up appointments and infection control. Pt verbalized understanding of all instructions. Pt escorted to the family car via WC by RN.
--- NOTE | 2021-07-30 13:18 | PC.NURSE ---
Pt states he received and understood his discharge instructions. Pt also states his care was fantastic .
== END 2021-07-29 13:30 | disposition home or self-care (01) | DRG 698 ==
LOC: CHSED 11:55 → CHS2ND 13:15
PROVIDERS: Nurse Practitioner Family; Admitting Provider Internal Medicine; Emergency Provider Emergency Medicine; Visit Provider Internal Medicine
DX: T83.518A Infection and inflammatory reaction due to other urinary catheter, initial encounter (principal); A41.9 Sepsis, unspecified organism; N39.0 Urinary tract infection, site not specified; N17.9 Acute kidney failure, unspecified; R11.2 Nausea with vomiting, unspecified; E86.0 Dehydration; Z20.822 Contact with and (suspected) exposure to COVID-19; R33.9 Retention of urine, unspecified; Z98.1 Arthrodesis status; Z87.828 Personal history of other (healed) physical injury and trauma; Z87.891 Personal history of nicotine dependence
CPT/HCPCS: 36415; 70450; 71045; 74176; 80048; 80053; 81001; 83605; 85025; 85027; 85652; 86140; 87040; 87077; 87081; 87086; 87088; 87186; 87502; 87880; 96361; 96365; 96372; 96375; 97161; 97165; 99285; A9270; C9113; C9803; J1650; J2270; J2405; J2543; J7030; U0003; U0005

== ENCOUNTER 2021-09-11 15:19 | Outpatient (RCR) | payer MEDICARE, MEDICAID, SELFPAY ==
[2021-09-11 13:51] VITALS: BP_SYST 81
[2021-10-02 16:00] VITALS: BP_SYST 112; BP_SYST 115
[2021-11-06 16:00] VITALS: BP_SYST 111; BP_SYST 113
== END 2021-11-06 08:56 | disposition home or self-care (01) ==
LOC: CHSPT 15:19
DX: M75.02 Adhesive capsulitis of left shoulder (principal); M75.01 Adhesive capsulitis of right shoulder
CPT/HCPCS: 97110; 97530

== ENCOUNTER 2021-09-11 15:21 | Outpatient (RCR) | payer MEDICARE, MEDICAID, SELFPAY ==
--- NOTE | 2021-11-01 16:25 | OTOPREEVAL ---
Assessment and note entered by Radha Gregory OT Evaluation Information Assessment Status Re-evaluation Reported Pain Level Pain Score 4,4: Self Report Assessment OT Clinical Summary The patient is a 61 year old male who continues to require skilled OT at this time to address current deficits in UE ROM, UE strength and self care tasks. The patient has demonstrated improvements in UE ROM in wrist flexion/extension and digit flexion, improvement in digit opposition of L hand from thumb to small finger, and UE strength leading to increased independence with dexterity of B hands, ability to pinch and analyst geochemical prospecting items for self care tasks and leisure activities and ability to perform daily tasks to maintain highest level of independence. The patient reports a new goal of turning the car wheel to attempt to return to driving in the future. The patient demonstrates good potential for progress and the need for continued occupational therapy treatment. Plan of Care Interventions Therapeutic Exercise,Manual Therapy,Neuro Re- education,Therapeutic Activities,Hot Pack/Cold Pack,Electrical Stimulation,Self-Care/Home Management,Ultrasound OT Services Indicated Yes Treatment Frequency and 2x/week for 10 visits. Duration These treatments will address the objective and functional deficits as defined above. The patient will be advanced safely and appropriately in order for the patient to progress towards his/her prior level of function. Additional exercises will be introduced and as well as a comprehensive home exercise program upon discharge, if needed, ?to ensure carryover of functional gains achieved in the clinic. This treatment plan has been reviewed and agreement upon by the patient.
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
== END 2021-12-06 17:36 | disposition home or self-care (01) ==
LOC: CHSOT 15:21
DX: G82.50 Quadriplegia, unspecified (principal)
CPT/HCPCS: 97110; 97140; 97168; 97530

== ENCOUNTER 2022-03-30 21:04 | Emergency (ER) | payer MEDICARE, MEDICAID, SELFPAY ==
--- NOTE | ~2022-03-30 | XR_ITS ---
Portable chest x-ray Comparison: 07/27/2021 Clinical History: Shortness of breath Findings: Lungs are clear, without focal consolidation or pleural effusion. Cardiomediastinal silho uette is stable. Cervical spine fixation hardware is present. Impression: Clear lungs. Reviewed, dictated and finalized at location . AINER WASHER Impression: Clear lungs.
--- NOTE | ~2022-03-30 | CT_ITS ---
CT Abdomen and Pelvis with contrast. History: Abdominal pain. Spiral CT of the abdomen and pelvis was performed after the administration of intravenous contrast. 1 00 cc of Omnipaque 350 was administered intravenously without complication. Dose reduction technique was used on this scan by utilizing automated exposure control and iterative reconstruction technique. The dose-length product (DLP) was 485.96 mGy-cm. COMPARISON: 07/27/2021 Findings: Scans through the lung bases demonstrate mild atelectatic change. The liver, spleen, pancreas, gallbladder, and adrenal glands are within normal limits. Bilateral nono bstructing renal stones are present, measuring up to maximum diameter of 6 mm on the right. There is minimal fullness of the left ureter, without ureteral stone at this time. No evidence of aortic aneur ysm. No lymphadenopathy is seen. There is no evidence of bowel obstruction. There is no evidence to suggest acute appendicitis or dive rticulitis. Images through the pelvis were performed. Tiny bubbles of air present in the urinary bladder. Prostat e gland is minimally enlarged. No ascites is seen. Impression: Mild fullness of the left ureter. Correlate for recently passed stone. Additional bilateral nonobstructing nephrolithiasis, as detailed above. Tiny bubble of air in the urinary bladder. Correlate for iatrogenic air. Reviewed, dictated and finalized at location . UREMENT COORDINATOR Impression: Mild fullness of the left ureter. Correlate for recently passed stone. Additional bilateral nonobstructing nephrolithiasis, as detailed above. Tiny bubble of air in the urinary bladder. Correlate for iatrogenic air.
[2022-03-30 21:04] VITALS: BP 140/82; PULSE 83; RESP 16; TEMP 37.6; O2SAT 96
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
--- NOTE | 2022-03-30 21:32 | ECG_ITS ---
Measurements Intervals [place] Rate: 71 P: 59 [place]: 172 QRS: 46 QRSD: 91 T: 48 QT: 373 QTc: 407 Interpretive Statements SINUS RHYTHM POSSIBLE LEFT ATRIAL ENLARGEMENT [-0.1mV P-WAVE IN V1/V2] CANNOT RULE OUT PREVIOUS SEPTAL MYOCARDIAL INFARCTION BORDERLINE ECG NO PREVIOUS ECG AVAILABLE FOR COMPARISON Electronically Signed On 03-31-2022 12:20:11 CHARTERED ACCOUNTANT by Tong Dean M.D.
[2022-03-30 22:03] LABS: Basophils Absolute Auto 0.03 K/mm3 (0.00-0.10); Eosinophils Absolute Auto 0.01 K/mm3 (0.02-0.50); Eosinophils Percent Auto 0.3 % (1.0-6.0); Hematocrit 32.6 % (40.0-54.0); Hemoglobin 10.7 g/dL (14.0-18.0); Immature Granulocyte Absolute 0.04 K/mm3 (0.00-0.00); Immature Granulocyte Percent A 1.3 % (0.0-0.0); Lymphocytes Absolute Auto 0.81 K/mm3 (1.10-4.50); Lymphocytes Percent Auto 26.6 % (18.0-42.0); Mean Corpuscular HGB Conc 32.8 g/dL (32.0-36.0); Mean Corpuscular Volume 82.3 fL (78.0-102.0); Mean Platelet Volume 10.9 fl (8.7-11.0); Monocytes Absolute Auto 0.24 K/mm3 (0.10-0.90); Monocytes Percent Auto 7.9 % (2.0-11.0); Neutrophils Absolute Auto 1.9 K/mm3 (1.7-7.2); Neutrophils Percent Auto 62.9 % (50.0-70.0); Platelet Count Result 209 K/mm3 (150-420); Red Blood Count 3.96 M/mm3 (4.70-6.10); Red Cell Distribution Width 12.4 % (11.6-14.4); White Blood Count 3.1 K/mm3 (4.8-10.8)
[2022-03-30 22:05] LABS: Influenza A QL RT-PCR Negative (Negative); Influenza B QL RT-PCR Negative (Negative); SARS-CoV-2 RNA PCR Negative (Negative)
[2022-03-30 22:13] LABS: RSV RNA, RT-PCR Negative (Negative)
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
[2022-03-30 22:21] LABS: Lactic Acid Reflex 0.7 mmol/L (0.4-2.0)
[2022-03-30 22:24] LABS: Alanine Aminotransferase 23 U/L (16-63); Alkaline Phosphatase 108 U/L (46-116); Anion Gap 7 mmol/L (8-16); Aspartate Amino Transferase 26 U/L (15-37); Bilirubin,Total 0.5 mg/dL (0.00-1.00); Blood Urea Nitrogen 14 mg/dL (7-18); Calcium 8.3 mg/dL (8.5-10.1); Carbon Dioxide 27 mmol/L (21-32); Chloride 96 mmol/L (98-108); Estimated CRCL calculation 77 ml/min; Estimated Glomerular Filt Rate > 60; Glucose 108 mg/dL (70-99); Lipase 34 U/L (16-77); Magnesium 1.9 mg/dL (1.8-2.4); NT Pro B Type Natriuretic Pept 121 pg/mL (0-125); Osmolality Calculated 271 mOsm/kg (285-295); Potassium 3.1 mmol/L (3.5-5.1); Sodium 130 mmol/L (136-145); Troponin I 6.7 ng/L (0.00-60.4)
[2022-03-30] MEDS: SODIUM CHLORIDE 0.9% IV 1,000 ML 999 ML IV CONT (22:26)
[2022-03-30 22:32] VITALS: BP 141/79; PULSE 73; RESP 16; O2SAT 97
[2022-03-30 22:32] LABS: CRP 14.2 mg/dL (0.0-0.9)
[2022-03-30] MEDS: POTASSIUM CHLORIDE 20 MEQ TABLET 40 MEQ PO (22:38)
[2022-03-30 22:54] LABS: Add Urine Microscopic? YES; Bilirubin Urine 2+ (Negative); Blood Urine 1+ (Negative); Color Urine Yellow (Yellow); Glucose Urine UA Negative (Negative); Ketones Urine 3+ (Negative); Leukocyte Esterase Ur Trace LEU/UL (Negative); Nitrate Urine Negative (Negative); Protein Urine 1+ (Negative); Specific Grav Ur 1.025 (1.010-1.020)
[2022-03-30 23:01] LABS: Appearance Urine Cloudy (Clear); WBC Clumps Urine Present /hpf; WBC Urine 31-50 /hpf (0-3)
[2022-03-30 23:02] LABS: Bacteria Urine 4+ /hpf; Mucus Urine Heavy /lpf
[2022-03-30 23:03] VITALS: BP 157/83; PULSE 74; RESP 16; O2SAT 97
[2022-03-30 23:16] VITALS: BP 156/80; PULSE 77; RESP 21; O2SAT 98
[2022-03-30 23:31] VITALS: BP 152/83; PULSE 76; RESP 14; O2SAT 99
[2022-03-30 23:46] VITALS: BP 145/85; PULSE 71; RESP 21; O2SAT 98
[2022-03-31 00:02] VITALS: BP 153/92; PULSE 76; RESP 14; TEMP 37.4; O2SAT 98
--- NOTE | 2022-04-02 12:40 | PC.NURSE ---
FINAL URINE CULTURE RESULTS: NO GROWTH. NO ACTION NEEDED.
--- NOTE | 2022-04-06 12:27 | PC.NURSE ---
FINAL BLOOD CULTURE, no growth after 5 days.
== END 2022-03-31 00:16 | disposition home or self-care (01) ==
PROVIDERS: Emergency Provider Family Medicine
DX: R11.2 Nausea with vomiting, unspecified (principal); R53.83 Other fatigue; R06.00 Dyspnea, unspecified; Z87.891 Personal history of nicotine dependence; Z20.822 Contact with and (suspected) exposure to COVID-19
CPT/HCPCS: 36415; 71045; 74177; 80053; 81001; 83605; 83690; 83735; 83880; 84484; 85025; 86140; 87040; 87086; 87637; 93005; 96360; 99284; A9270; J7030; Q9967

== ENCOUNTER 2023-02-26 14:00 | Outpatient (RCR) | payer MEDICARE, MEDICAID, SELFPAY ==
--- NOTE | 2023-02-05 17:14 | BUSTOPEVAL1 ---
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 The patient was seen by ENT at [facility] on 01-13-23. A swallow study was performed 01-01-23 and the patient presented with no episodes of laryngeal penetraiton or aspiration with good pharyngeal clearance. Exam revealed a filling defect at the level of C5 consistent with a prominent cricopharyngeus. The barium tablet persisted at the location before clearance with a liquid wash. Patient reported that he has difficulty swallowing 2-4 times per week with solids sticking. He reported that he has difficulty swallowing carbonated beverages and often avoids them. ONSET: order date 01-21-23 Reported Pain Level Pain Score 0: Self Report Assessment ST Clinical Summary Patient was referred for an ST evaluation due to concerns with swallowing after ENT appointment. The patient had a swallow study which indicated no laryngeal penetration or aspiration but presented with a filling defect at level of C5 consistent with prominent cricopharyngeus. Patient presented with difficulty swallowing barium pill which persisted in this location until a liquid wash was used. The patient reported that he has difficulty swallowing touch textured foods (breads, cakes) along with difficulty swallowing carbonated beverages. The patient stated he has difficulty swallowing around 2-4 times per week. He said he has had this problem for quite some time. Patient was given trials of a hard cookie, donut and iced tea via straw. Patient tolarted tea well with no overt difficulties. Patient presented with difficulty swallowing the cookie and donut. He presented with piecemeal deglutition (3+ swallows to clear single bolus), effortful swallow, and requied a liquid wash after every solid trial. Patient presented with cough post deglutition with donut one time. He reported that he has pain in the left side of his neck frequently with increased pain when swallowing. He reported that possible esophageal surgery may be needed in the furture. Discussed plan to target diet modification/training, compensatory techniques,
--- NOTE | 2023-02-23 18:04 | PCSTNOTE ---
Patient did not show up for scheduled appointment this date. Patient was contacted and is scheduled for this .
--- NOTE | 2023-03-12 15:39 | PCSTNOTE ---
Patient did not show up for scheduled appointment this date.
--- NOTE | 2023-04-21 12:31 | BUSTOPDC ---
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 The patient was seen by ENT at [facility] on 01-13-23. A swallow study was performed 01-01-23 and the patient presented with no episodes of laryngeal penetration or aspiration with good pharyngeal clearance. Exam revealed a filling defect at the level of C5 consistent with a prominent cricopharyngeus. The barium tablet persisted at the location before clearance with a liquid wash. Patient reported that he has difficulty swallowing 2-4 times per week with solids sticking. He reported that he has difficulty swallowing carbonated beverages and often avoids them. The patient has only attended one treatment session and did not show up to the other two that were scheduled. Patient will be discharged from at this time due to limited attendance. Reported Pain Level Pain Score 0: Self Report Pain Score 0: Self Report Assessment ST Clinical Summary Patient was referred for an ST evaluation due to concerns with swallowing after ENT appointment. The patient had a swallow study which indicated no laryngeal penetration or aspiration but presented with a filling defect at level of C5 consistent with prominent cricopharyngeus. Patient presented with difficulty swallowing barium pill which persisted in this location until a liquid wash was used. The patient reported that he has difficulty swallowing tough textured foods (breads, cakes) along with difficulty swallowing carbonated beverages. The patient stated he has difficulty swallowing around 2-4 times per week. He said he has had this problem for quite some time. Patient was given trials of a hard cookie, donut and iced tea via straw. Patient tolerated tea well with no overt difficulties. Patient presented with difficulty swallowing the cookie and donut. He presented with piecemeal deglutition (3+ swallows to clear single bolus), effortful swallow, and required a liquid wash after every solid trial. Patient presented with cough post deglutition with donut one time. He reported that he has pain in the left side of h
== END 2023-02-26 14:46 | disposition home or self-care (01) ==
LOC: CHSST 14:00
DX: R13.10 Dysphagia, unspecified (principal); J38.01 Paralysis of vocal cords and larynx, unilateral
CPT/HCPCS: 92526; 92610

== ENCOUNTER 2023-03-21 12:09 | Emergency (ER) | payer MEDICARE, MEDICAID, SELFPAY ==
--- NOTE | ~2023-03-21 | XR_ITS ---
EXAMINATION: XR chest 1V portable INDICATION: Cough and congestion TECHNIQUE: Portable AP chest at 1245 hours COMPARISON: 03/30/2012 FINDINGS: The lungs are free of acute opacities. No pleural effusion or pneumothorax. The cardiomedia stinal silhouette is normal. There are partially imaged surgical changes of the cervical spine. IMPRESSION: 1. No acute cardiopulmonary abnormality. Reviewed, dictated and finalized at location F. RTMENT SECRETARY
[2023-03-21 12:10] VITALS: BP 179/93; PULSE 92; RESP 20; TEMP 36.7; O2SAT 97
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
[2023-03-21 12:13] VITALS: O2SAT 97
[2023-03-21 12:50] VITALS: BP 151/84; PULSE 79; RESP 20; O2SAT 96
[2023-03-21 12:52] LABS: Basophils Absolute Auto 0.06 K/mm3 (0.00-0.10); Basophils Percent Auto 0.8 % (0.0-1.0); Eosinophils Absolute Auto 0.19 K/mm3 (0.02-0.50); Eosinophils Percent Auto 2.5 % (1.0-6.0); Hematocrit 35.4 % (40.0-54.0); Hemoglobin 11.1 g/dL (14.0-18.0); Immature Granulocyte Absolute 0.02 K/mm3 (0.00-0.00); Immature Granulocyte Percent A 0.3 % (0.0-0.0); Lymphocytes Absolute Auto 1.03 K/mm3 (1.10-4.50); Lymphocytes Percent Auto 13.8 % (18.0-42.0); Mean Corpuscular HGB Conc 31.4 g/dL (32.0-36.0); Mean Corpuscular Hemoglobin 24.2 pg (27.0-31.0); Mean Corpuscular Volume 77.3 fL (78.0-102.0); Mean Platelet Volume 9.9 fl (8.7-11.0); Monocytes Absolute Auto 0.67 K/mm3 (0.10-0.90); Neutrophils Absolute Auto 5.5 K/mm3 (1.7-7.2); Neutrophils Percent Auto 73.6 % (50.0-70.0); Platelet Count Result 247 K/mm3 (150-420); Red Blood Count 4.58 M/mm3 (4.70-6.10); Red Cell Distribution Width 15.3 % (11.6-14.4); White Blood Count 7.5 K/mm3 (4.8-10.8)
[2023-03-21 13:10] LABS: Alanine Aminotransferase 16 U/L (16-63); Albumin Level 3.2 g/dL (3.4-5.0); Alkaline Phosphatase 104 U/L (46-116); Anion Gap 9 mmol/L (8-16); Aspartate Amino Transferase 14 U/L (15-37); Bilirubin,Total 0.7 mg/dL (0.00-1.00); Blood Urea Nitrogen 13 mg/dL (7-18); Calcium 7.8 mg/dL (8.5-10.1); Carbon Dioxide 28 mmol/L (21-32); Chloride 103 mmol/L (98-108); Estimated Glomerular Filt Rate > 60; Glucose 91 mg/dL (70-99); Osmolality Calculated 290 mOsm/kg (285-295); Sodium 140 mmol/L (136-145); Total Protein 7.1 g/dL (6.4-8.2)
[2023-03-21 13:18] LABS: SARS-CoV-2 RNA PCR Negative (Negative)
[2023-03-21 13:20] VITALS: BP 134/83; PULSE 75; RESP 20; O2SAT 98
[2023-03-21 13:20] LABS: Influenza A QL RT-PCR Negative (Negative); Influenza B QL RT-PCR Negative (Negative); Lipase 21 U/L (16-77); RSV RNA, RT-PCR Positive (Negative)
[2023-03-21 13:22] LABS: Lactic Acid Reflex 0.6 mmol/L (0.4-2.0)
[2023-03-21 13:49] LABS: Troponin I 4.2 ng/L (0.00-60.4)
[2023-03-21 14:07] LABS: Appearance Urine Clear (Clear); Bilirubin Urine Negative (Negative); Blood Urine Negative (Negative); Color Urine Yellow (Yellow); Glucose Urine UA Negative (Negative); Ketones Urine Trace (Negative); Leukocyte Esterase Ur Negative LEU/UL (Negative); Nitrate Urine Negative (Negative); Protein Urine Negative (Negative); Specific Grav Ur 1.025 (1.010-1.020)
[2023-03-21 14:11] LABS: Add Urine Microscopic? YES
[2023-03-21 14:12] LABS: Bacteria Urine Trace /hpf; RBC Urine 0-2 /hpf (0-2); WBC Urine 0-3 /hpf (0-3)
[2023-03-21 14:58] VITALS: BP 164/99; PULSE 89; RESP 20; O2SAT 97
== END 2023-03-21 15:14 | disposition home or self-care (01) ==
PROVIDERS: Emergency Provider Internal Medicine Critical Care Medicine
DX: J06.9 Acute upper respiratory infection, unspecified (principal); B97.4 Respiratory syncytial virus as the cause of diseases classified elsewhere; K59.00 Constipation, unspecified; Z87.891 Personal history of nicotine dependence; Z20.822 Contact with and (suspected) exposure to COVID-19
CPT/HCPCS: 36415; 71045; 80053; 81001; 83605; 83690; 84484; 85025; 87637; 99284

== ENCOUNTER 2023-07-05 18:50 | Emergency (ER) | payer MEDICARE, MEDICAID, SELFPAY ==
[2023-07-05] VITALS (20 sets, daily range): BP systolic 117–155; BP diastolic 68–101; PULSE 64–77; RESP 14–21; TEMP 37.3; O2SAT 93–98
--- NOTE | ~2023-07-05 | CT_ITS ---
EXAMINATION: CT brain wo con DATE: 07/05/2023 20:10 INDICATION: Slurred speech, arm weakness bilateral . TECHNIQUE: Computed tomography (CT) of the head was performed without intravenous contrast. The mA wa s adjusted according to patient size. Iterative reconstruction technique was employed. The dose-lengt h product was 605.33 mGy-cm. COMPARISON: None. FINDINGS: No acute intracranial hemorrhage or extra-axial fluid collection. No hydrocephalus, mass, or herniation. No acute ischemic infarct. Unremarkable dural venous sinus attenuation. No acute osseous abnormality. Minimal right posterior ethmoid opacification, the remaining aerated spaces are clear. IMPRESSION: No acute intracranial process. Reviewed, dictated and finalized at location K.
--- NOTE | 2023-07-05 19:19 | PC.NURSE ---
2 family members at the bedside
--- NOTE | 2023-07-05 19:30 | PC.NURSE ---
patients family member reports that the speech is back to baseline.
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
--- NOTE | 2023-07-05 19:54 | ECG_ITS ---
SEE SCANNED COPY FOR CONFIRMED REPORT. MTDD
--- NOTE | 2023-07-05 20:13 | PC.NURSE ---
cardiopulmonary notified that ekg is needed
--- NOTE | 2023-07-05 20:17 | PC.NURSE ---
registration at the bedside. ekg completed and given to ed provider
--- NOTE | 2023-07-05 20:28 | PC.NURSE ---
lab at the bedside. patient is aware that blood work will be [facility] to [facility]. patient and family verbalized understanding. call light is in reach. denies any other needs at this time
[2023-07-05 20:55] LABS: Hematocrit 34.8 % (40.0-54.0); Mean Corpuscular HGB Conc 31.6 g/dL (32-36); Mean Corpuscular Hemoglobin 25.1 pg (27.0-31.0); Mean Corpuscular Volume 79.5 fL (78.0-102.0); Mean Platelet Volume 10.9 fl (8.7-11.0); Platelet Count Result 281 K/mm3 (150-420); Red Blood Count 4.38 M/mm3 (4.70-6.10); Red Cell Distribution Width 13.7 % (11.6-14.4); White Blood Count 7.9 K/mm3 (4.8-10.8)
[2023-07-05 21:15] LABS: Partial Thromboplastin Time 29.7 Sec (23.9-30.70); Prothrombin Time 11.4 Seconds (9.50-12.1)
--- NOTE | 2023-07-05 21:40 | PC.NURSE ---
resting on stretcher, family at the bedside. awaiting lab work. call light in reach. denies any needs at this time
--- NOTE | 2023-07-05 21:56 | PC.NURSE ---
appears to be sleeping. resp even and unlabored. call light in reach.
--- NOTE | 2023-07-05 22:44 | PC.NURSE ---
continue to wait on lab results from [facility]. patient appears to be sleeping. resp even and unlabored. call light in reach
[2023-07-05 23:17] LABS: Alanine Aminotransferase 17 U/L (6-50); Albumin Level 4.2 g/dL (3.5-5.1); Alkaline Phosphatase 107 U/L (38-126); Anion Gap 7 mmol/L (4-12); Aspartate Amino Transferase 31 U/L (17-59); Bilirubin,Total 0.7 mg/dL (0.2-1.3); Blood Urea Nitrogen 16 mg/dL (9-20); Calcium 8.9 mg/dL (8.4-10.2); Carbon Dioxide 26 mmol/L (22-30); Chloride 104 mmol/L (98-107); Estimated CRCL calculation 90 ml/min; Estimated Glomerular Filt Rate > 60; Glucose 82 mg/dL (65-110); Osmolality Calculated 284 mOsm/kg (285-295); Potassium 4.1 mmol/L (3.4-5.0); Sodium 137 mmol/L (137-145)
--- NOTE | 2023-07-05 23:40 | PC.NURSE ---
patient is resting on stretcher. appears to be sleeping. resp even and unlabored. call light in reach. awaiting disposition for er provider
[2023-07-06] VITALS: BP 127/72; PULSE 70; O2SAT 93
[2023-07-06 00:15] VITALS: BP 119/75; PULSE 65; O2SAT 93
--- NOTE | 2023-07-06 00:34 | PC.NURSE ---
spoke with son. he is on his way to seed cone picker patient. patient is sitting up on the side of the bed, dressed.
== END 2023-07-06 00:45 | disposition home or self-care (01) ==
PROVIDERS: Emergency Provider Emergency Medicine
DX: G45.9 Transient cerebral ischemic attack, unspecified (principal); K59.00 Constipation, unspecified; Z98.1 Arthrodesis status; Z87.891 Personal history of nicotine dependence; F12.90 Cannabis use, unspecified, uncomplicated
CPT/HCPCS: 36415; 70450; 80053; 85027; 85610; 85730; 93005; 99284

== ENCOUNTER 2023-09-16 21:17 | Emergency (ER) | payer MEDICARE, MEDICAID, SELFPAY ==
--- NOTE | ~2023-09-16 | XR_ITS ---
EXAMINATION: XR chest 1V portable DATE: 09/16/2023 21:56 INDICATION: Fever TECHNIQUE: frontal view of the chest was obtained. COMPARISON: Chest radiograph dated 03/21/2023 FINDINGS: The lungs remain clear with no focal airspace opacities, pulmonary edema, pleural effusion or pneumot horax. The cardiomediastinal silhouette is normal. Device likely external to the patient projects ove r the heart and lower thoracic spine. IMPRESSION: 1. No acute cardiopulmonary disease. Reviewed, dictated and finalized at location A.
[2023-09-16 21:22] VITALS: BP 140/76; PULSE 96; RESP 16; TEMP 37.6; O2SAT 97
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
--- NOTE | 2023-09-16 21:38 | ECG_ITS ---
Test Date: 2023-09-16 21:34:04 Measurements Intervals Campbell Rate: 89 P: 55 CA: 174 QRS: 49 QRSD: 81 T: 74 QT: 348 QTc: 426 Interpretive Statements SINUS RHYTHM POSSIBLE LEFT ATRIAL ENLARGEMENT [-0.1mV P-WAVE IN V1/V2] OTHERWISE NORMAL ECG No previous ECG available for comparison Electronically Signed On 09-18-2023 11:39:39 CDT by Tong Dean M.D.
[2023-09-16 21:46] VITALS: PULSE 92
[2023-09-16 22:03] LABS: Basophils Absolute Auto 0.05 K/mm3 (0.00-0.10); Basophils Percent Auto 0.4 % (0.0-1.0); Hematocrit 34.4 % (40.0-54.0); Hemoglobin 11.3 g/dL (14.0-18.0); Immature Granulocyte Absolute 0.09 K/mm3 (0.00-0.00); Immature Granulocyte Percent A 0.6 % (0.0-0.0); Lymphocytes Absolute Auto 1.16 K/mm3 (1.10-4.50); Lymphocytes Percent Auto 8.1 % (18.0-42.0); Mean Corpuscular HGB Conc 32.8 g/dL (32-36); Mean Corpuscular Hemoglobin 25.3 pg (27.0-31.0); Mean Platelet Volume 10.8 fl (8.7-11.0); Monocytes Absolute Auto 0.81 K/mm3 (0.10-0.90); Monocytes Percent Auto 5.7 % (2.0-11.0); Neutrophils Absolute Auto 12.13 K/mm3 (1.70-7.20); Neutrophils Percent Auto 85.2 % (50.0-70.0); Platelet Count Result 194 K/mm3 (150-420); Red Blood Count 4.47 M/mm3 (4.70-6.10); Red Cell Distribution Width 14.6 % (11.6-14.4); White Blood Count 14.2 K/mm3 (4.8-10.8)
[2023-09-16 22:17] LABS: Add Urine Microscopic? YES; Appearance Urine Sl Cloudy (Clear); Bilirubin Urine 1+ (Negative); Blood Urine Trace-intact (Negative); Color Urine Yellow (Yellow); Glucose Urine UA Negative (Negative); Ketones Urine 3+ (Negative); Leukocyte Esterase Ur 2+ LEU/UL (Negative); Nitrate Urine Negative (Negative); Protein Urine Trace (Negative); Specific Grav Ur >= 1.030 (1.010-1.020)
[2023-09-16 22:20] VITALS: TEMP 37.9
[2023-09-16 22:20] LABS: Albumin Level 3.4 g/dL (3.4-5.0); Alkaline Phosphatase 110 U/L (46-116); Anion Gap 10 mmol/L (4-12); Bilirubin,Total 1.2 mg/dL (0.00-1.00); Blood Urea Nitrogen 15 mg/dL (7-18); Calcium 8.5 mg/dL (8.5-10.1); Carbon Dioxide 26 mmol/L (21-32); Chloride 100 mmol/L (98-108); Estimated CRCL calculation 67 ml/min; Estimated Glomerular Filt Rate > 60; Glucose 100 mg/dL (70-99); Osmolality Calculated 282 mOsm/kg (285-295); Potassium 3.7 mmol/L (3.5-5.1); Sodium 136 mmol/L (136-145); Total Protein 7.1 g/dL (6.4-8.2)
[2023-09-16 22:23] LABS: Lactic Acid Reflex 0.8 mmol/L (0.4-2.0)
[2023-09-16 22:24] LABS: Lipase 10 U/L (16-77); Troponin I < 4.0 ng/L (0.00-60.4)
[2023-09-16 22:27] LABS: Bacteria Urine 1+ /hpf; Mucus Urine Moderate /lpf; Squamous Epithelial Cell Urine Few /hpf (Few); WBC Urine 21-30 /hpf (0-3)
[2023-09-16 22:29] LABS: Alanine Aminotransferase 9 U/L (16-63); Aspartate Amino Transferase 10 U/L (15-37)
--- NOTE | 2023-09-16 22:36 | PC.NURSE ---
Report received, pt resting w/ light cover, reports he is feeling very cold. Pt noted to have increased temp. and order obtained from ERP for Tylenol.
[2023-09-16 22:38] LABS: SARS-CoV-2 RNA PCR Negative (Negative)
[2023-09-16 22:44] LABS: Influenza A QL RT-PCR Negative (Negative); Influenza B QL RT-PCR Negative (Negative); RSV RNA, RT-PCR Negative (Negative)
[2023-09-16] MEDS: ACETAMINOPHEN 500 MG TABLET 1000 MG PO (22:51)
--- NOTE | 2023-09-16 23:22 | PC.NURSE ---
Pt refused IV stating he would rather have oral antibiotics instead of IV and then be d/c home if he isn't being admitted. Discussed w/ ERP, will change to Oral and then give Rx for home.
[2023-09-16 23:29] VITALS: TEMP 37.6
[2023-09-16] MEDS: levoFLOXacin 500 MG TABLET PO (23:34)
[2023-09-16 23:51] VITALS: BP 113/69; PULSE 87; RESP 20; TEMP 37.6; O2SAT 98
--- NOTE | 2023-09-19 12:35 | PC.NURSE ---
URINE CULTURE REVIEWED. PT HAS RX FOR LEVAQUIN. NO CHANGE NEEDED PER DR PABLO
== END 2023-09-16 23:51 | disposition home or self-care (01) ==
PROVIDERS: Emergency Provider Internal Medicine Critical Care Medicine
DX: N39.0 Urinary tract infection, site not specified (principal); Z87.891 Personal history of nicotine dependence; Z20.822 Contact with and (suspected) exposure to COVID-19; G82.50 Quadriplegia, unspecified
CPT/HCPCS: 36415; 71045; 80053; 81001; 83605; 83690; 84484; 85025; 87040; 87077; 87086; 87088; 87186; 87637; 93005; 99284; A9270

== ENCOUNTER 2024-02-20 08:32 | Emergency (ER) | payer MEDICARE, MEDICAID, SELFPAY ==
--- NOTE | ~2024-02-20 | CT_ITS ---
EXAMINATION: CT abdomen pelvis w con DATE: 02/20/2024 09:40 INDICATION: Left lower quadrant abdominal pain for 4 days. TECHNIQUE: Computed tomography (CT) of the abdomen and pelvis was performed with 100 CC Omnipaque 350 intravenous contrast. Automated exposure control and iterative reconstruction technique were employe d. Exam dose: 562.84 mGy-cm total exam DLP. COMPARISON: 03/30/2012 CT abdomen pelvis FINDINGS: Mild dependent atelectasis primarily at the base of the right lower lobe. Normal heart size. No pericardial or pleural effusion. Very small sliding hiatal hernia. The liver, bile ducts, spleen, pancreas, pancreatic duct and adrenal glands are unremarkable. The spl een measures up to 12.7 cm vertical dimension, within upper normal limits. Approximately 2.5 x 4.5 mm nonobstructing lower pole right renal calculus. There are at least 4 more left renal nonobstructing calculi, measuring up to 7.8 mm dimension. There is mild to moderate left hydronephrosis and pelviectasis, with numerous stones noted in the pro ximal left ureter, extending up to 3.6 cm along the proximal left ureter, the largest most distal courtney culus measuring up to 5.3 mm width. No renal space occupying mass lesions. No bowel obstruction, bowel wall thickening, pneumatosis or intraperitoneal free air is detected. There is atherosclerotic calcification of normal caliber of the abdominal aorta, iliac and femoral ar teries. 3.2 cm wide fat-containing right inguinal hernia. Very small left fat-containing inguinal hernia. 2.2 cm wide fat-containing umbilical hernia. Spondylosis of the included lower thoracic and lumbar spine including moderately severe degenerative disc disease throughout the lumbar and lumbosacral spine. No suspicious osteolytic or osteoblastic lesions are noted. IMPRESSION: Proximal left ureteral Steinstrasse and at least 4 nonobstructing left renal calculi Solitary nonobstructing right renal 2.5 x 4.5 mm calculus Very small sliding hiatal hernia Reviewed, dictated and finalized at [facility] Reviewed, dictated and finalized at [facility]. ING OPERATOR
[2024-02-20 08:39] VITALS: BP 179/81; PULSE 95; RESP 20; TEMP 37.7; O2SAT 97
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
--- NOTE | 2024-02-20 08:50 | PC.NURSE ---
DR PABLO AT THE BEDSIDE
--- NOTE | 2024-02-20 08:58 | ECG_ITS ---
Test Date: 2024-02-20 09:21:19 Measurements Intervals [place] Rate: 80 P: 47 WY: 184 QRS: 47 QRSD: 83 T: 55 QT: 342 QTc: 397 Interpretive Statements SINUS RHYTHM Compared to ECG 09/16/2023 21:34:04 No significant changes Electronically Signed On 02-23-2024 17:40:54 SURVEY TECHNICIAN by Matt Greco M.D.
--- NOTE | 2024-02-20 09:11 | PC.NURSE ---
LAB IS FINISHED WITH BLOOD WORK. EKG IN PROGRESS.
[2024-02-20] MEDS: ONDANSETRON INJ 4 MG/2 ML VIAL IV PUSH (09:12)
[2024-02-20] MEDS: HYDROmorphone HCL INJ (*CRX) 2 MG/ML VIAL 0.5 MG IV PUSH ×2 (09:12→14:51)
[2024-02-20] MEDS: LACTATED RINGERS 1,000 ML 999 ML IV CONT ×2 (09:13→12:57)
[2024-02-20 09:15] LABS: Basophils Absolute Auto 0.03 K/mm3 (0.00-0.10); Basophils Percent Auto 0.4 % (0.0-1.0); Eosinophils Absolute Auto 0.23 K/mm3 (0.02-0.50); Eosinophils Percent Auto 2.7 % (1.0-6.0); Hematocrit 32.6 % (40.0-54.0); Hemoglobin 10.3 g/dL (14.0-18.0); Immature Granulocyte Absolute 0.04 K/mm3 (0.00-0.00); Immature Granulocyte Percent A 0.5 % (0.0-0.0); Lymphocytes Absolute Auto 1.19 K/mm3 (1.10-4.50); Mean Corpuscular HGB Conc 31.6 g/dL (32-36); Mean Corpuscular Hemoglobin 24.5 pg (27.0-31.0); Mean Corpuscular Volume 77.6 fL (78.0-102.0); Mean Platelet Volume 10.7 fl (8.7-11.0); Monocytes Percent Auto 8.2 % (2.0-11.0); Neutrophils Percent Auto 74.2 % (50.0-70.0); Platelet Count Result 197 K/mm3 (150-420); Red Cell Distribution Width 14.6 % (11.6-14.4); White Blood Count 8.5 K/mm3 (4.8-10.8)
--- NOTE | 2024-02-20 09:23 | PC.NURSE ---
PATIENT TRANSPORTED TO CT VIA STRETCHER.
--- NOTE | 2024-02-20 09:28 | PC.NURSE ---
LAB AT THE BEDSIDE
--- NOTE | 2024-02-20 09:35 | PC.NURSE ---
RETURNED FROM CT. REPORTS THAT PAIN MEDICATION IS WORKING.
[2024-02-20 09:36] LABS: Alanine Aminotransferase 17 U/L (16-63); Albumin Level 3.1 g/dL (3.4-5.0); Alkaline Phosphatase 120 U/L (46-116); Anion Gap 7 mmol/L (4-12); Aspartate Amino Transferase 14 U/L (15-37); Bilirubin,Total 0.4 mg/dL (0.00-1.00); Blood Urea Nitrogen 23 mg/dL (7-18); Calcium 8.5 mg/dL (8.5-10.1); Carbon Dioxide 27 mmol/L (21-32); Chloride 106 mmol/L (98-108); Estimated CRCL calculation 45 ml/min; Estimated Glomerular Filt Rate 41; Glucose 109 mg/dL (70-99); Lipase 27 U/L (16-77); Osmolality Calculated 294 mOsm/kg (285-295); Potassium 3.9 mmol/L (3.5-5.1); Sodium 140 mmol/L (136-145); Total Protein 6.8 g/dL (6.4-8.2)
[2024-02-20 09:39] LABS: Lactic Acid Reflex 0.7 mmol/L (0.4-2.0)
[2024-02-20 10:06] LABS: Add Urine Microscopic? YES; Appearance Urine Sl Cloudy (Clear); Bilirubin Urine Negative (Negative); Blood Urine Trace-intact (Negative); Color Urine Light Yellow (Yellow); Glucose Urine UA Negative (Negative); Ketones Urine Negative (Negative); Leukocyte Esterase Ur 3+ LEU/UL (Negative); Nitrate Urine Positive (Negative); Protein Urine Negative (Negative); Specific Grav Ur 1.015 (1.010-1.020)
[2024-02-20 10:10] LABS: Bacteria Urine 3+ /hpf; RBC Urine 0-2 /hpf (0-2); WBC Urine 51-75 /hpf (0-3)
--- NOTE | 2024-02-20 11:41 | PC.NURSE ---
REQUESTED BLOOD CULTURES PRIOR TO ANTIBIOTICS BEING GIVEN. WAITING ON LAB TO DRAW
--- NOTE | 2024-02-20 11:46 | PC.NURSE ---
PATIENT WAS UPDATED THAT THERE ARE NO BEDS AT [facility] OR [facility] IN [place]. ATTEMPTING SURROUNDING FACILITIES. VERBALIZE UNDERSTANDING
--- NOTE | 2024-02-20 11:59 | PC.NURSE ---
LAB AT THE BEDSIDE
[2024-02-20] MEDS: PIPERACILLN/TAZ 3.375GM/NS50ML 3.375 GM/50 ML BAG IVPB (12:22)
[2024-02-20 12:31] VITALS: BP 152/83; PULSE 82; RESP 20; TEMP 38.2; O2SAT 94
--- NOTE | 2024-02-20 13:24 | PC.NURSE ---
PATIENT IS RESTING ON STRETCHER. NO NEEDS VOICED. AWAITING TRANSPORT. CALL LIGHT IN REACH.
[2024-02-20 14:13] VITALS: BP 151/90; PULSE 80; RESP 18; TEMP 38.2; O2SAT 97
--- NOTE | 2024-02-22 13:42 | PC.NURSE ---
preliminary urine reviewed. awaiting final klebsiella pneumoniae.
--- NOTE | 2024-02-24 14:15 | PC.NURSE ---
urine culture reviewed, faxed to saundra at [facility] , pt transferred. [phone]
--- NOTE | 2024-02-25 14:41 | PC.NURSE ---
PRELIMINARY BLOOD CULTURE RESULTS X2: NO GROWTH TO DATE
--- OUTSIDE RECORDS SUMMARY | 2024-02-27 10:39 | XMS_ITS | Referral Summary ---
Author Organization [facility] Address [address] [place] [address] Care Team Providers Care Sap Pp Consultant Name Role Phone Ilan Pearson MD Primary Care Provider [phone] Source Comments [facility],non-owned Affiliates and Associated Physician Practices is amultiple site organization consisting of ambulatory clinics and hospital sitesin [place], [place], [place] and [place]. This disclosure is being madepursuant to the Care Everywhere program and may not contain all information available regarding this patient. Last updated 17.[employer] Allergies Active Allergy Reactions Criticality Noted Date Comments Gabapentin Skin Reactions,Unknown 03/24/2017 Povidone Iodine Skin Reactions 05/26/2019 Lactose Diarrhea Medium 06/10/2019 mercurycom [Other] Skin Reactions 05/26/2019 Medications * Be aware that medications may not be up to date on this document. Alwaysverify current medications with the patient. Medication Sig Dispensed Refills Start Date End Date Status meloxicam (MOBIC) 15 MG tablet Take 15 mg by mouth once daily 09/13/2019 Active celecoxib (CELEBREX) 200 MG capsule 09/26/2019 Active pregabalin (LYRICA) 25 MG capsule Take 1 capsule by mouth 3 times daily 50 capsule 1 11/02/2019 Active traMADol (ULTRAM) 50 MG tablet Take 50 mg by mouth every 6 hours as needed 12/09/2019 Active Active Problems Problem Noted Date Diagnosed Date Acute frontal sinusitis 06/09/2019 Sepsis 06/06/2019 Pneumonia due to infectious organism 06/06/2019 Fracture of frontal bone 05/26/2019 Fracture of roof of left orbit 05/26/2019 Nasal bone fracture 05/26/2019 Nasal septum fracture 05/26/2019 Frontal sinus fracture 05/26/2019 Maxillary fracture 05/26/2019 Trauma 05/25/2019 Closed nondisplaced fracture of fourth cervical vertebra 05/25/2019 Central cord syndrome 05/25/2019 Posttraumatic respiratory insufficiency S/P cervical spinal fusion Resolved Problems Problem Noted Date Diagnosed Date Resolved Date Spinal injury 05/31/2019 08/23/2019 Immunizations Name Administration Dates Next Due INFLUENZA VACCINE, QUADR. (F LUZONE; FLULAVAL; FLUARIX; AFLURIA QUADRIVALENT; 6MO+), 0.5 ML (IIV4) 05/26/2019(Deferred: See Comments - Patient had flu shot 11/16/2018) TDAP (7yrs+) 05/25/2019 Social History Tobacco Use Types Packs/Day Years Used Date Smoking Tobacco: Never Smokeless Tobacco: Never Alcohol Use Standard Drinks/Week Comments Not Currently 0 (1 standard drink = 0.6 oz pur e alcohol) Sex and Gender Information Value Date Recorded Sex Assigned at Not on file Gender Identity Not on file Sexual Orientation Not on file Last Filed Vital Signs Vital Sign Reading Time Taken Comments Blood Pressure 126/76 05/30/2020 9:45 AM CDT Pulse 63 05/30/2020 9:45 AM CDT Temperature 36.2 ??C (97.2 ??F) 05/30/2020 9:45 AM CD T Respiratory Rate 20 05/30/2020 9:45 AM CDT Oxygen Saturation 99% 05/30/2020 9:45 AM CDT Inhaled Oxygen Concentration - - Weight 77.6 kg (171 lb) 05/30/2020 9:45 AM CDT Height 182.9 cm (6') 05/30/2020 9:45 AM CDT Body Mass Index 23.19 05/30/2020 9:45 AM CDT Functional Status Functional Status Response Date of Assess ment Is person deaf or have serious hearing difficult y? No 05/25/2019 Is person blind or have serious difficulty seein g? No 05/25/2019 Does person have serious dif ficulty walking/climbing stairs? Yes 05/25/2019 Does person have difficulty dressing/bathing? Ye s 05/25/2019 Does person have difficulty doing errands alone? Yes 05/25/2019 Cognitive Status Response Date of Assessm ent Does person have difficulty concentrating/remembering/making decisions? No 05/25/2019 Plan of Treatment Not on file Medical Devices Implanted Type Area Missile Inspector Device Identifier Shelf Expiration Date Model / Serial / Lot Screw Set Std Spne Implanted:Qty: 8 on 05/27/2019 by French Kim MD at [facility] [employer] [id number] / / Screw 4.5mm 20mm Ma Spne Oc Upr Thor Implanted:Qty: 1 on 05/27/2019 by French Kim MD at [facility] [employer] [id number] / / Screw 4.5mm 26mm Ma Spne Bone Implanted:Qty: 1 on 05/27/2019 by French Kim MD at [facility] [employer]ine [id number] / / Screw 3.5mm 20mm Ma Spne Bone Implanted:Qty: 4 on 05/27/2019 by French Kim MD at [facility] [employer] [id number] / / Screw 4.5mm 22mm Ma Spne Bone Implanted:Qty: 2 on 05/27/2019 by French Kim MD at [facility] [employer] Spine [id number] / / Slnt Dura Duraseal Pg Trilysine Amine 5 Implanted:Qty: 1 on 05/27/2019 by French Kim MD at [facility] [employer] 06/15/2020 [id number] / / [id number] Usman Spnl 60mm 3.5mm Pcut Implanted:Qty: 2 on 05/27/2019 by French Kim MD at [facility] [employer] [id number] / / Advance Directives * Full Code (Latest Code Status on File) Date Activated Date Inactivated Comments 06/10/2019 7:10 AM 07/08/2019 3:59 PM * Full Code Date Activated Date Inactivated Comments 06/07/2019 12:29 AM 06/09/2019 5:33 PM * Full Code Date Activated Date Inactivated Comments 05/31/2019 9:13 PM 06/06/2019 3:33 PM * Full Code Date Activated Date Inactivated Comments 05/25/2019 4:12 PM 05/31/2019 4:58 PM Care Teams Sap Pp Consultant Relationship Specialty Start Date End Date Ilan Pearson MD [address] [place] [id number] PCP - General Family Medicine 05/25/19
--- OUTSIDE RECORDS SUMMARY | 2024-02-27 10:39 | XMS_ITS | Data Portability ---
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 07/06/2023 182.88 cm 21.2 kg/m2 45026.41 g 152 mm[Hg] 82 mm[Hg] Marina Stone [facility] 4 14:46:06 Date Recorded Body height Heart rate Oxygen saturation Oxygen saturation in Arterial blood by Pulse oximetry Body mass index (BMI) Body weight Systolic blood pressure Diastolic blood pressure Provider Name and Address Organization Details Last Updated DateTime 4 182.88 cm 81 /min 98 % 98 % 22.2 kg/m2 41208.1 5 g 126 mm[Hg] 68 mm[Hg] Yolande Orr [facility] 4 15:55:28 Date Recorded Heart rate Respiratory rate Body mass index (BMI) Body weight Oxygen saturation Oxygen saturation in Arterial blood by Pulse oximetry Body temperature Systolic blood pressure Diastolic blood pressure Provider Name and Address Organization Details Last Updated DateTime 4 68 /min 20 /min 21.7 kg/m2 41642.7 792 g 98 % 98 % 96.4 [degF] 118 mm[Hg] 68 mm[Hg] Not Available [facility] 4 05:06:37 Date Recorded Body height Body mass index (BMI) Body weight Respiratory rate Oxygen saturation Oxygen saturation in Arterial blood by Pulse oximetry Heart rate Systolic blood pressure Diastolic blood pressure Provider Name and Address Organization Details Last Updated DateTime 4 182.88 cm 23.6 kg/m2 69588.0 7 g 18 /min 98 % 98 % 72 /min 126 mm[Hg] 62 mm[Hg] Annbaelle Atkinsonn [facility] 4 15:27:33 Social History Question Answer Notes LastModified by Organizat ion Details LastModified Time Tobacco Smoking Status [facility] 12/28/2023 15:25:05 How Many Packs Per Day (PPD)? 2 Information not available 12/28/2023 How Long Have You Smoked? 1979 Information not available 12/28/2023 Sex: Unknown Functional Status None recorded. Mental Status None recorded. Family History Nothing Reported. Medical History No medical history recorded. Immunizations Vaccine Type Date Status Note Provider Nam e and Address Organization Details Recorded Time COVID-19, mRNA, LNP-S, PF, 30 mcg/0.3 mL dose 09/08/2020 completed Annabelle Jessica null, [facility] 12/28/2023 15:19:35 COVID-19, mRNA, LNP-S, PF, 30 mcg/0.3 mL dose 10/01/2020 completed Annabelle Jessica null, [facility] 12/28/2023 15:19:35 Past Encounters Encounter ID Performer Location Encounter Start Date Encounter Closed Date Diagnosis/Indication Diagnosis SNOMED-CT Code Diagnosis ICD10 Code Diagnosis Note [id number] Angelito Gross MD 800 [facility] ([place]) [address] [place] [address] 07/06/2023 14:29:25 07/06/2023 15:13:41 Kidney stone 88184118 N20.0 Lightheadedness 31350927 8 R42 [id number] [facility] [address] [place] [address] 09/09/2023 15:42:09 09/14/2023 17:29:15 Mitral valve regurgitation 35076222 I34.0 Transient cerebral ischemia 599113830 G45.9 [id number] Purvi Johns MD [facility] ([place]) [address] [place] [address] 12/28/2023 15:07:36 12/28/2023 16:04:23 Intermittent claudication 95287180 I73.9 Hyperlipidemia 10591026 E78.5 Gastroesop hageal reflux disease without esophagitis 728571612 K21.9 Anemia 872984251 D64.9 Health Concerns Section Related Observation LastModified by Organization Detai ls LastModified Time None Recorded Concern Status LastModified by Organization Details LastModified Time None Recorded Advance Directives Directive None Recorded Payers Encounter Date Sequence Insurance Name Policy Number Policy Palacio Covered Member ID Palacio Member ID Guarantor Name 07/06/2023 1 [facility] (MEDICARE REPLACEMENT/A DVANTAGE - PPO) [id number] Ajit Tyler [id number] Ajit Tyler 09/09/2023 1 [facility] (MEDICARE REPLACEMENT/A DVANTAGE - PPO) [id number] Ajit Tyler [id number] Ajit Tyler 12/28/2023 1 [facility] (MEDICARE REPLACEMENT/A DVANTAGE - PPO) [id number] Ajit Tyler [id number] Ajit Tyler 12/28/2023 2 [place] [facility] Ajit Tyler [id number] jAit Tyler Notes Date Note Type Note Provider Name and Address Organization Details Recorded Time 07/06/2023 text/html This is a 63-year-old male patient who previously underwent endoscopic surgery for his left renal calculi, has right renal calculi as well, underwent recent cystoscopy right ureteral stent insertion. Left ureteral stent was removed at previous office visit. There was concern that the patient was having a stroke and he was seen yesterday at the [facility] for light headedness and slurred speech. He was discharges home on the same day. No urine specimen was obtained and the patient was not catheterized. Today he states he is no longer self-catheterizing and denies any recent infections. KUB today shows no definite clinically significant calculi, no hydronephrosis, and no upper tract abnormalities or lesions. Images were reviewed independently of radiology services. Agnelito Gross MD [facility] [place] [address], [phone], [facility] 07/12/2023 23:39:32 12/28/2023 text/html Patient is here today for follow up on medications. Purvi Johns MD [address] [place] [address], [phone], [facility] 12/28/2023 20:19:14
--- OUTSIDE RECORDS SUMMARY | 2024-02-27 10:39 | XMS_ITS | Continuity of Care Document ---
Author Organization [facility] Address [address] [place] [address] Care Team Providers Care Coil Strapper Name Role Phone THOMAS JOHNS Primary Care Provider [phone] Assessment Encounter Date Assessment Date Assessment LastModified by Organization Details LastModified Time 12/28/2023 12/28/2023 PMH: History of spinal cord injury, depression, Taylor's esophagus, anemia, neurogenic bladder, dysphagia ??? Health maintenance: AAA screening- Discuss at 67 Lung cancer Screening- Cessation in 1977 Colorectal cancer screening- Follows with GI Hypertension screening- Normotensive ??? Tobacco screening-negati ve Depression screening-no diagnosis ???Hepatitis C screening-negati ve ???Diabetes screening-09/08 ???ASCVD-on statin Alcohol use-negative Skin cancer screening-deferr ed ???PSA-follows with urology ??? * Patient understands risks of not pursuing health maintenance exams. ?1. Depression ???Depression is stable without medications. No medication changes at this time. Patient denies suicidal and/or homicidal ideation. Reviewed possible side effects of and expected benefits of medication. Should any changes arise, or dosing changes be requested, they are to contact us at that time. ??? 2. Taylor's esophagus/GERD/c onstipation Stable ???On omeprazole Linzess. Follows with GI. [...] urology. ??? Follow-up in 6 months ??? [email or web address] Not available 12/28/2023 15:49:50 Plan of Treatment Reminders Order Date Submit Date Provider Last Modified By Organization Details Last Modified Time Details Appointments None recorded. Lab CBC 2023 [facility], [address] [place] [address], [address], 4 16:05:15 iron panel, serum or plasma 2023 [facility], [address] [place] [address], [id number], 4 16:12:10 lipid panel, serum 2023 [facility], [address] [place], [address], 5 05:30:55 CMP, serum or plasma 2023 [facility], [address] [place], [address], 4 04:20:18 Referral None recorded. Procedures None recorded. Surgeries None recorded. Imaging None recorded. Medication Orders omeprazole 20 mg capsule,del ayed release 2023 [employer] [address], [place], [address], 4 15:50:36 atorvastati n 40 mg tablet 2023 [employer] [address], [address], [place], [address], 4 15:50:35 Patient TargetsNo targets recorded. Patient InstructionsNo instructions recorded. Reason for Referral None Reported. Results Created Date Observation Date Name Description Value Unit Range Abnormal Flag Note LastModifiedBy Organization Detail LastModifiedTime 12/15/19 24 03/18/2023 imagi ng/di agnos tic [...] resul t No observ ation record ed. [facility] (Imaging) [address] [place], [address], 02/22/2024 09:49:36 Result Notes None recorded. Problems Name Problem SNOMED Code Status Onset Date Resolution Date Notes Provider Name and Address Organization Details Recorded Time Intermittent claudication 73304151 Active Not Available [employer] 13:23:52 Gastroesophag eal reflux disease without esophagitis 723779641 Active 2023 Thomas Johns MD [address] [facility], [place], [address] , [facility] 4 15:46:13 Anemia 488155095 Active 2023 Thomas Johns MD [address] [facility] [place], [address] , [facility] 4 15:46:42 Hyperlipidemi a 35311407 Active 2023 Rachael Nguyen [facility] 4 17:47:47 Kidney stone 60432848 Active 2023 Marina Stone null, [facility] 4 08:38:13 Lightheadedne ss 778894644 Active 2023 [facility] 4 15:07:46 Mitral valve regurgitation 60082698 Active 2023 [facility]ola [facility] 4 16:53:58 Transient cerebral ischemia 530577945 Active 2023 Yolande Orr [facility] 4 14:40:36 Problem Notes None recorded. Medical Equipment None Reported. Allergies Allergen ID Allergen Name Allergen Category Reaction Reaction Severity Criticality Documentation Date Start Date Code Code System Note Provider Name and Address Organization Details Recorded Time [id number] 494370185 2484498j5 2824e gabapenti n medicatio n Not available Not available Not available 03/18/20232015 92623 RxNorm React ion: Decre ased libid o; Sleep lessn ess; Not Available Not Available Not Available [id number] 406706790 6075051t8 2824e prednison e medicatio n Not available Not available Not available 11/25/20232023 8640 RxNorm React ion: Const ipati on; Insom geremias; Not Available Not Available Not Available [id number] 29b50 fluoxetin e hydrochlo ride medicatio n other Not available Not available 11/25/20232021 90725 4 RxNorm React ion: GI Upset ; [...] Not Available Not Available No t Available [employer] active Not Available Not Available Not Available [...] Updated DateTime 4 182.88 cm 23.6 kg/m2 18361.0 7 g 18 /min 98 % 98 % 72 /min 126 mm[Hg] 62 mm[Hg] Annabelle Lopez [facility] 4 15:27:33 Social History Question Answer Notes LastModified by Organizat ion Details LastModified Time Tobacco Smoking Status Former Smoker Annabelle tran [facility] 12/28/2023 15:25:05 How Many Packs Per Day (PPD)? 2 Information not available 12/28/2023 How Long Have You Smoked? 1978 Information not available 12/28/2023 Sex: Unknown Functional Status None recorded. Mental Status None recorded. Family History Nothing Reported. Medical History No medical history recorded. Immunizations Vaccine Type Date Status Note Provider Nam e and Address Organization Details Recorded Time COVID-19, mRNA, LNP-S, PF, 30 mcg/0.3 mL dose 09/08/2020 completed Annabelle tran, [facility] 12/28/2023 15:19:35 COVID-19, mRNA, LNP-S, PF, 30 mcg/0.3 mL dose 10/01/2020 [facility] 12/28/2023 15:19:35 Past Encounters Encounter ID Performer Location Encounter Start Date Encounter Closed Date Diagnosis/Indication Diagnosis SNOMED-CT Code Diagnosis ICD10 Code Diagnosis Note [id number] Thomas Johns MD [facility]) [address] [place] [address] 12/28/2023 15:07:36 12/28/2023 16:04:23 Intermittent claudication 48981419 I73.9 Hyperlipidemia 72124205 E78.5 Gastroesop hageal reflux disease without esophagitis 223823538 K21.9 Anemia 464945960 D64.9 Health Concerns Section Related Observation LastModified by Organization Detai ls LastModified Time None Recorded Concern Status LastModified by Organization Details LastModified Time None Recorded Payers Encounter Date Sequence Insurance Name Policy Number Policy Palacio Covered Member ID Palacio Member ID Guarantor Name 12/28/2023 1 [facility] (MEDICARE REPLACEMENT/A DVANTAGE - PPO) [id number] Ajit Tlyer [id number] Ajit Tyler 12/28/2023 2 [place] [facility] [facility] [employer] Ajit Tyler [id number] Ajit Tyler Notes Date Note Type Note Provider Name and Address Organization Details Recorded Time 12/28/2023 text/html Patient is here today for follow up on medications. Thomas Johns MD [facility] [place] [address], [phone], [facility] 12/28/2023 20:19:14
--- OUTSIDE RECORDS SUMMARY | 2024-02-27 10:39 | XMS_ITS | Clinical Summary ---
Author Organization [facility] Address [address] [facility] [place] [address] Care Team Providers Care Lead Producer Name Role Phone Ilan Pearson MD Primary Care Provider [phone] Source Comments [facility],non-owned Affiliates and Associated Physician Practices is amultiple site organization consisting of ambulatory clinics and hospital sitesin [place], [place], [place] and [place]. This disclosure is being madepursuant to the Care Everywhere program and may not contain all information available regarding this patient. Last updated 17.[facility] salgomed Allergies Active Allergy Reactions Criticality Noted Date [...] Mass Index 23.19 05/30/2020 9:45 AM CDT Plan of Treatment Health Maintenance Due Date Last Done Comments COLOGUARD (AGES 45-75) - COL ON CA SCREENING 1962 COLON MONITORING 1962 COLONOSCOPY - COLON CA SCREENING 1962 CT COLONOGRAPHY - COLON CA SCREENING 1962 Colorectal Cancer Screening 1962 FIT - COLON CA SCREENING 1962 FLEX SIG - COLON CA SCREENING 1962 LIPID TESTING 1962 HIV SCREENING 1977 HEPATITIS C SCREENING 01/08/1980 ZOSTER VACCINE (1 of 2) 01/13/2012 COVID-19 VACCINE ( - 2023-2 5 season) 2023 INFLUENZA VACCINE (#1) 2023 DEPRESSION SCREENING 02/17/2024 MEDICARE AWV ? CALENDAR YEAR 2024 DTAP/TDAP/TD VACCINES (2 - T d or Tdap) 05/24/2029 05/25/2019 Respiratory Syncytial Virus (RSV) Vaccine Pt: or over 60 yrs (1 - 1-dose 75+ series) 2037 HEPATITIS B VACCINE Aged Out No longe r eligible based on patient's age to complete this topic HIB VACCINE Aged Out No longer eligi ble based on patient's age to complete this topic HPV VACCINE Aged Out No longer eligi ble based on patient's age to complete this topic MENINGOCOCCAL VACCINE Aged Out No rudolph roma eligible based on patient's age to complete this topic PNEUMOCOCCAL VACCINE Aged Out No long er eligible based on patient's age to complete this topic Medical Devices Implanted Type Area Building Guard Deputy Sheriff Device Identifier Shelf Expiration Date Model / Serial / Lot Screw Set Std Spne Implanted:Qty: 8 on 05/27/2019 by French Kim MD at [facility] [employer] [id number] / / Screw 4.5mm 20mm Ma Spne Oc Upr Thor Implanted:Qty: 1 on 05/27/2019 by French Kim MD at [facility] [employer] [id number] / / Screw 4.5mm 26mm Ma Spne Bone Implanted:Qty: 1 on 05/27/2019 by French Kim MD at [facility] [employer] [id number] / / Screw 3.5mm 20mm Ma Spne Bone Implanted:Qty: 4 on 05/27/2019 by French Kim MD at [facility] [employer] [id number] / / Screw 4.5mm 22mm Ma Spne Bone Implanted:Qty: 2 on 05/27/2019 by French Kim MD at [facility] [employer] Spine [id number] / / Slnt Dura Duraseal Pg Trilysine Amine 5 Implanted:Qty: 1 on 05/27/2019 by French Kim MD at [facility] [employer] Koko 06/15/2020 [id number] / / [id number] Usman Spnl 60mm 3.5mm Pcut Implanted:Qty: 2 on 05/27/2019 by French Kim MD at [facility] [employer] [id number] / / Advance Directives * Full Code [...] 4:12 PM 05/31/2019 4:58 PM Care Teams Lead Producer Relationship Specialty Start Date End Date Ilan Pearson MD [address] [place], [place] [phone] PCP - General Family Medicine 05/25/19
--- OUTSIDE RECORDS SUMMARY | 2024-02-27 10:40 | XMS_ITS | Encounter Summary ---
Author Organization [facility] Health Address [address] [facility] [place] [address] Care Team Providers Care Clinical Education Consultant Name Role Phone Ilan Pearson MD Primary Care Provider [phone] Reason for Visit * Reason Onset Date Comments Speech Therapy 12/05/2019 Encounter Details Date Type Department Care Team (Late st Contact Info) Description 12/05/2019 Telephone [facility] [address] [facility], [address] [place] [address] Almita Feliciano, MEDICAL BILLING MANAGER [address] [place] [address] Speech Therapy Social History Tobacco Use Types Packs/Day Years Used Date Smoking Tobacco: Never Smokeless Tobacco: Never Alcohol Use Standard Drinks/Week Comments Not Currently 0 (1 standard drink = 0.6 oz pur e alcohol) Sex and Gender Information Value Date Recorded Sex Assigned at Not on file Gender Identity Not on file Sexual Orientation Not on file COVID-19 Exposure Response Date Recorded In the last month, have you been in contact with someone who was confirmed or suspected to have Coronavirus / COVID-19? No / Unsure 11/14/2019 12:25 PM CDT documented as of this encounter Functional Status Functional Status Response Date of [...] person have difficulty concentrating/remembering/making decisions? No 05/25/2019 documented as of this encounter Miscellaneous Notes * Telephone Encounter - Alexa Knight - 12/05/2019 11:26 AM CDT Checked CPT codes 40103/73083 does not require authorization via Link Portal. No ref# given documented in this encounter Plan of Treatment Not on file documented as of this encounter Visit Diagnoses Not on filedocumented in this encounter Care Teams Clinical Education Consultant Relationship Specialty Start Date End Date Ilan Pearson MD [address] [place] [id number] PCP - General Family Medicine 05/25/19 documented as of this encounter
--- OUTSIDE RECORDS SUMMARY | 2024-02-27 10:40 | XMS_ITS | Encounter Summary ---
Author Organization [facility] Address [address] [facility] [place] [address] Care Team Providers Care Rest Room Matron Name Role Phone Ilan Pearson MD Primary Care Provider [phone] Encounter Details Date Type Department Care Team (Late st Contact Info) Description 08/23/2019 10:48 AM CDT - 08/23/2019 11:59 PM CDT Hospital Encounter [facility] [address] [facility] [address] French Kim MD [address] [facility] [address] [place] [phone] Discharge Disposition: Home or Self Care Social History Tobacco Use Types Packs/Day Years Used Date Smoking Tobacco: Never Smokeless Tobacco: Never Alcohol Use Standard Drinks/Week Comments Not Currently 0 (1 standard drink = 0.6 oz pur e alcohol) Sex and Gender Information Value Date Recorded Sex Assigned at Not on file Gender Identity Not on file Sexual Orientation Not on file documented as of this encounter Functional Status [...] No 05/25/2019 documented as of this encounter Medications at Time of Discharge Medication Sig Dispensed Refills Start Date End Date acetaminophen (TYLENOL) 500 MG tablet Take 2 tablets by mouth every 8 hours Maximum allowable Acetaminophen amount = 4 Grams (4000 mg) / 24 hours. 05/31/2019 09/22/2019 Artificial Saliva (CAPHOSOL) by Mouth/Throat route as needed 05/31/2019 09/22/2019 bisacodyl (DULCOLAX) 10 MG suppository Insert 1 suppository into the rectum once daily 06/01/2019 09/22/2019 calcium carbonate (TUMS) 500 MG chew tablet Take 1 tablet by mouth 2 times daily with morning and evening meal 05/31/2019 09/22/2019 cyclobenzaprine (FLEXERIL) 5 MG tablet Take 1 tablet by mouth 3 times daily as needed 05/31/2019 09/22/2019 diclofenac sodium (VOLTAREN) 1 % gel Apply 2 g to affected area 4 times daily as needed 07/08/2019 09/22/2019 docusate sodium (COLACE) 100 MG capsule Take 1 capsule by mouth once daily 06/01/2019 09/22/2019 ibuprofen (MOTRIN) 800 MG tablet Take 800 mg by mouth once daily 07/19/2019 09/22/2019 montelukast (SINGULAIR) 10 MG tablet Take 1 tablet by mouth once daily 05/14/2019 09/22/2019 omeprazole (PRILOSEC) 20 MG capsule Take 20 mg by mouth once daily 07/22/2019 09/22/2019 oxyCODONE, immediate release, (ROXICODONE) 5 MG tablet Take 1 tablet by mouth every 4 hours as needed 12 tablet 05/31/2019 09/22/2019 phenol (CHLORASEPTIC) 1.4 % liquid Take by mouth as needed for Sore Throat 05/31/2019 0 polyethylene glycol 3350 (MIRALAX) packet Take 17 g by mouth once daily 06/01/2019 09/22/2019 documented as of this encounter Plan of Treatment Not on file documented as of this encounter Procedures Procedure Name Priority Date/Time Associated Diagnosis Comments XR CERVICAL SPINE 2 OR 3VW Routine 08/23/2019 10:52 AM CDT Neck pain documented in this encounter Results * XR CERVICAL SPINE 2 OR 3VW (08/23/2019 10:52 AM CDT) Anatomical Region Laterality Modality Spine Radiographic Radha ging 08/23/2019 11:2 0 AM CDT Impressions 08/23/2019 11:34 AM CDT IMPRESSION: C2-C5 posterior spinal fusion and C4-C7 anterior spinal fusion with unchanged alignment. Report dictated by Misael Edwards MD (resident doctor). IDr. AL MD have personally reviewed and interpreted this examination/study. This report was electronically signed by AL LAWTON MD ??on 08/23/2019 11:34 AM . Narrative 08/23/2019 11:34 AM CDT EXAMINATION: XR CERVICAL SPINE 2VW HISTORY: M54.2: Neck pain COMPARISON: Cervical spine radiograph 07/12/[address] cervical spine 05/25/2019 FINDINGS: Posterior instrumented spinal fusion is seen between C2-C5 with paired lateral mass screws and bilateral vertical interconnecting rods. Anterior cervical discectomy and fusion is seen between C4-C7 with plate and screws. The instrumentation is intact. There is no evidence of loosening. There is straightening of the cervical lordosis without subluxation. C4 posterior element fracture is better visualized on prior CT. Procedure Note Al Lawton MD - 08/23/2019 EXAMINATION: XR CERVICAL SPINE 2VW HISTORY: M54.2: Neck pain COMPARISON: Cervical spine radiograph 07/12/[address] cervical spine 05/25/2019 FINDINGS: Posterior instrumented spinal fusion is seen between C2-C5 with paired lateral mass screws and bilateral vertical interconnecting rods.Anterior cervical discectomy and fusion is seen between C4-C7 with plate and screws. The instrumentation is intact. There is no evidence ofloosening. There is straightening of the cervical lordosis without subluxation. C4 posterior element fracture is better visualized on prior CT. IMPRESSION: C2-C5 posterior spinal fusion and C4-C7 anterior spinal fusion with unchanged alignment. Report dictated by Misael Edwards MD (resident doctor). Dr. AL Barnes MD have personally reviewed and interpreted this examination/study. This report was electronically signed by AL LAWTON MD on08/23/2019 11:34 AM . French Kim MD DIAGNOSTIC IMAGING O RDERABLES documented in this encounter Visit Diagnoses Diagnosis Neck pain Cervicalgia documented in this encounter Care Teams Rest Room Matron Relationship Specialty Start Date End Date Ilan Pearson MD [address] [place] [id number] PCP - General Family Medicine 05/25/19 documented as of this encounter
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
--- OUTSIDE RECORDS SUMMARY | 2024-02-27 10:40 | XMS_ITS | Encounter Summary ---
Author Organization [facility] Health Address [address] [place] [address] Care Team Providers Care Examination Scorer Name Role Phone Ilan Pearson MD Primary Care Provider Encounter Details Date Type Department Care Team (Latest Contact Info) Description 05/30/2020 10:46 AM CDT - 05/30/2020 11:59 PM CDT Hospital Encounter [facility] DI[facility]NOSTIC RAD OP [address] [place] [id number] Sachin Bloom MD [address] [facility] [address] [facility] [place] [address] Discharge Disposition: Home or Self Care Social [...] have Coronavirus / COVID-19? No / Unsure 05/30/2020 10:42 AM CDT documented as of this encounter Functional [...] Sig Dispensed Refills Start Date End Date celecoxib (CELEBREX) 200 MG capsule 09/26/2019 meloxicam (MOBIC) 15 MG tablet Take 15 mg by mouth once daily 09/13/2019 pregabalin (LYRICA) 25 MG capsule Take 1 capsule by mouth 3 times daily 50 capsule 1 11/02/2019 traMADol (ULTRAM) 50 MG tablet Take 50 mg by mouth every 6 hours as needed 12/09/2019 documented as of this encounter Plan of Treatment Not on file documented as of this encounter Procedures Procedure Name Priority Date/Time Associated Diagnosis Comments XR LUMBAR SPINE 4VW OR MORE Routine 05/30/2020 11:12 AM CDT Chronic midline low back pain, unspecified whether sciatica present XR CERVICAL SPINE 2 OR 3VW Routine 05/30/2020 11:12 AM CDT Central cord syndrome, subsequent encounter (HCC) documented in this encounter Results * XR LUMBAR SPINE 4VW OR MORE (05/30/2020 11:12 AM CDT) Anatomical Region Laterality Modality Spine Radiographic Radha ging 05/30/2020 11:2 1 AM CDT Impressions 05/31/2020 8:00 AM CDT IMPRESSION: 1.C2-C5 posterior spinal fusion and C4-C7 anterior spinal fusion with unchanged alignment. 2.Mild to moderate degenerative changes of the lumbar spine. No acute fracture or compression deformity. Report dictated by Tereso Torres MD (resident manager). I, Dr. RUDOLPH CHAN have personally reviewed and interpreted this examination/study. This report was electronically signed by RUDOLPH CHAN ??on 05/31/2020 8:00 AM . Narrative 05/31/2020 8:00 AM CDT EXAMINATION: XR CERVICAL SPINE 2 OR 3VW, XR LUMBAR SPINE 4VW OR MORE HISTORY: S14.129D: Central cord syndrome, subsequent encounter COMPARISON: Cervical spine dated 11/22/2019, CT of the lumbar spine dated 05/25/2019 FINDINGS: Cervical spine: There is straightening of the cervical lordosis without subluxation. Posterior instrumented spinal fusion is redemonstrated between C2-C5 with paired lateral mass screws and bilateral vertical interconnecting rods. Anterior cervical discectomy and fusion is seen between C4-C7 with plate and screws. The instrumentation is intact. There is no evidence of loosening. Perivertebral soft tissues normal. Lumbar spine: There is minimal unchanged rightward scoliosis at the level of L2-3. Bridging osteophytosis of the left L2-3 is noted, unchanged. ??There is no fracture or compression deformity. There is mild to moderate disc space narrowing, more prominent in level of L1 superior. There is mild facet arthropathy. Procedure Note Rudolph Chan, DO - 05/31/2020 EXAMINATION: XR CERVICAL SPINE 2 OR 3VW, XR LUMBAR SPINE 4VW OR MORE HISTORY: S14.129D: Central cord syndrome, subsequent encounter COMPARISON: Cervical spine dated 11/22/2019, CT of the lumbar spine dated 05/25/2019 FINDINGS: Cervical spine: There is straightening of the cervical lordosis without subluxation. Posterior instrumented spinal fusion is redemonstrated between C2-C5with paired lateral mass screws and bilateral vertical interconnecting rods. Anterior cervical discectomy and fusion is seen between C4-C7 with plate and screws. The instrumentation is intact. There is no evidence of loosening. Perivertebral soft tissues normal. Lumbar spine: There is minimal unchanged rightward scoliosis at the level of L2-3. Bridging osteophytosis of the left L2-3 is noted, unchanged. There isno fracture or compression deformity. There is mild to moderate disc space narrowing, more prominent in level of L1 superior. There is mild facet arthropathy. IMPRESSION: 1.C2-C5 posterior spinal fusion and C4-C7 anterior spinal fusion with unchanged alignment. 2.Mild to moderate degenerative changes of the lumbar spine. No acute fracture or compression deformity. Report dictated by Tereso Torres MD (resident manager). I, Dr. DAVIS HRASTICH have personally reviewed and interpreted this examination/study. This report was electronically signed by RUDOLPH CHAN on 05/31/2020 8:00 AM . Sachin Bloom MD DIAGNOSTIC IMAGING O RDERABLES * XR CERVICAL SPINE 2 OR 3VW (05/30/2020 11:12 AM CDT) Anatomical Region Laterality Modality Spine Radiographic Radha ging 05/30/2020 11:2 1 AM CDT Impressions 05/31/2020 8:00 AM CDT IMPRESSION: 1.C2-C5 posterior spinal fusion and C4-C7 anterior spinal fusion with unchanged alignment. 2.Mild to moderate degenerative changes of the lumbar spine. No acute fracture or compression deformity. Report dictated by Tereso Torres MD (resident manager). Dr. RUDOLPH Barnes have personally reviewed and interpreted this examination/study. This report was electronically signed by RUDOLPH CHAN ??on 05/31/2020 8:00 AM . Narrative 05/31/2020 8:00 AM CDT EXAMINATION: XR CERVICAL SPINE 2 OR 3VW, XR LUMBAR SPINE 4VW OR MORE HISTORY: S14.129D: Central cord syndrome, subsequent encounter COMPARISON: Cervical spine dated 11/22/2019, CT of the lumbar spine dated 05/25/2019 FINDINGS: Cervical spine: There is straightening of the cervical lordosis without subluxation. Posterior instrumented spinal fusion is redemonstrated between C2-C5 with paired lateral mass screws and bilateral vertical interconnecting rods. Anterior cervical discectomy and fusion is seen between C4-C7 with plate and screws. The instrumentation is intact. There is no evidence of loosening. Perivertebral soft tissues normal. Lumbar spine: There is minimal unchanged rightward scoliosis at the level of L2-3. Bridging osteophytosis of the left L2-3 is noted, unchanged. ??There is no fracture or compression deformity. There is mild to moderate disc space narrowing, more prominent in level of L1 superior. There is mild facet arthropathy. Procedure Note Rudolph Chan DO - 05/31/2020 EXAMINATION: XR CERVICAL SPINE 2 OR 3VW, XR LUMBAR SPINE 4VW OR MORE HISTORY: S14.129D: Central cord syndrome, subsequent encounter COMPARISON: Cervical spine dated 11/22/2019, CT of the lumbar spine dated 05/25/2019 FINDINGS: Cervical spine: There is straightening of the cervical lordosis without subluxation. Posterior instrumented spinal fusion is redemonstrated between C2-C5with paired lateral mass screws and bilateral vertical interconnecting rods. Anterior cervical discectomy and fusion is seen between C4-C7 with plate and screws. The instrumentation is intact. There is no evidence of loosening. Perivertebral soft tissues normal. Lumbar spine: There is minimal unchanged rightward scoliosis at the level of L2-3. Bridging osteophytosis of the left L2-3 is noted, unchanged. There isno fracture or compression deformity. There is mild to moderate disc space narrowing, more prominent in level of L1 superior. There is mild facet arthropathy. IMPRESSION: 1.C2-C5 posterior spinal fusion and C4-C7 anterior spinal fusion with unchanged alignment. 2.Mild to moderate degenerative changes of the lumbar spine. No acute fracture or compression deformity. Report dictated by Tereso Torres MD (resident manager). I, Dr. RUDOLPH CHAN have personally reviewed and interpreted this examination/study. This report was electronically signed by RUDOLPH CHAN on 05/31/2020 8:00 AM . Sachin Bloom MD DIAGNOSTIC IMAGING O RDERABLES documented in this encounter Visit Diagnoses Diagnosis Central cord syndrome, subsequent encounter (HCC) Chronic midline low back pain, unspecified whether sciatica present documented in this encounter Care Teams Examination Scorer Relationship Specialty Start Date End Date Ilan Pearson MD [address] [place] [id number] PCP - General Family Medicine 05/25/19 documented as of this encounter
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
--- OUTSIDE RECORDS SUMMARY | 2024-02-27 10:40 | XMS_ITS | Encounter Summary ---
Author Organization [facility] Health Address [address] [facility] [place] [address] Care Team Providers Care Fermenting Cellars Receiver Name Role Phone Ilan Pearson MD Primary Care Provider [phone] Reason for Visit * Reason Onset Date Comments Appointment 09/22/2019 Encounter Details Date Type Department Care Team (Late st Contact Info) Description 09/22/2019 Telephone [facility] [address] [phone] Almita Feliciano, BUSINESS ANALYST CONSULTANT [address] [phone] Appointment Social History Tobacco Use Types Packs/Day Years [...] encounter Miscellaneous Notes * Telephone Encounter - Rachna Gunderson - 09/22/2019 12:04 PM CDT Left a message to call and schedule a swallow study with Almita Vo. He prefers a 10am time slot and will be done at [facility]. Referral in [facility]. documented in this encounter Plan of Treatment Not on file documented as of this encounter Visit Diagnoses Not on filedocumented in this encounter Care Teams Fermenting Cellars Receiver Relationship Specialty Start Date End Date Ilan Pearson MD [address] [place] [id number] PCP - General Family Medicine 05/25/19 documented as of this encounter
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
--- OUTSIDE RECORDS SUMMARY | 2024-02-27 10:40 | XMS_ITS | Encounter Summary ---
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 PM CDT 06/06/2019 5:01 PM CDT Patsy Tuttle MD LAB - CHEMISTRY ALEXIS DEVRIES Performing Organization Address [facility] Co de Phone Number [facility] [address] [place] [address] * (ABNORMAL) COMPREHENSIVE METABOLIC PANEL (06/06/2019 4:48 PM CDT) [facility] Glucose 103 70 - 105 mg/dL 06/06/2019 5:20 PM CDT [facility] Sodium 126(L) 136 - 145 mmol/L 06/06/2019 5:20 PM CDT [facility] Potassium 2.7(L) 3.5 - 5.1 mmol/L 06/06/2019 5:20 PM CDT [facility] Chloride 92(L) 98 - 107 mmol/L 06/06/2019 5:20 PM CDT [facility] CO2 23 23 - 31 mmol/L 06/06/2019 5:20 PM CDT [facility] Calcium 7.8(L) 8.4 - 10.4 mg/dL 06/06/2019 5:20 PM CDT [facility] Anion Gap 11 8 - 16 mmol/L 06/06/2019 5:20 PM CDT [facility] BUN 14 8.4 - 25.7 mg/dL 06/06/2019 5:20 PM CDT [facility] Creatinine 0.69(L) 0.72 - 1.25 mg/dL 06/06/2019 5:20 PM CDT [facility] Alkaline Phosphatase 107 40 - 150 U/L 06/06/2019 5:20 PM CDT [facility] ALT 47 0 - 61 U/L 06/06/2019 5:20 PM CDT [facility] AST 46(H) 5 - 34 U/L 06/06/2019 5:20 PM CDT [facility] Protein Total 6.0(L) 6.4 - 8.3 gm/dL 06/06/2019 5:20 PM CDT [facility] Albumin 3.2(L) 3.5 - 5.2 gm/dL 06/06/2019 5:20 PM CDT [facility] Bilirubin Total 0.4 0.2 - 1.2 mg/dL 06/06/2019 5:20 PM CDT [facility] eGFR by MDRD >60 >60 mL/min/1.7 3m2 06/06/2019 5:20 PM CDT [facility] eGFR by MDRD >60 >60 mL/min/1.7 3m2 06/06/2019 5:20 PM CDT [facility] Blood BLOOD SPECIMEN / Unknown Venipuncture / Unknown 06/06/2019 4:48 PM CDT 06/06/2019 5:01 PM CDT Patsy Tuttle MD LAB - CHEMISTRY ALEXIS DEVRIES [facility] Organization Address City/State/ZIP Co de Phone Number [facility] [address] [place] [address] * (ABNORMAL) CBC W AUTO DIFFERENTIAL (06/06/2019 4:48 PM CDT) WBC 18.1(H) 4.4 - 10.7 x10E9/L 06/06/2019 5:05 PM CDT [facility] WBC Corrected 06/06/2019 5:05 PM CDT [facility] RBC 3.66(L) 3.80 - 5.40 x10E12/L 06/06/2019 5:05 PM CDT [facility] Hemoglobin 10.2(L) 12.0 - 17.6 gm/dL 06/06/2019 5:05 PM CDT [facility] Hematocrit 30.3(L) 35.2 - 51.7 % 06/06/2019 5:05 PM CDT [facility] MCV 82.8 80.7 - 98.3 fl 06/06/2019 5:05 PM CDT [facility] MCH 27.9 26.7 - 34.0 pg 06/06/2019 5:05 PM CDT [facility] MCHC 33.7 30.8 - 35.9 gm/dL 06/06/2019 5:05 PM CDT [facility] Platelet Count 444(H) 153 - 416 x10E9/L 06/06/2019 5:05 PM CDT [facility] RDW-CV 12.6 12.1 - 14.9 % 06/06/2019 5:05 PM CDT [facility] MPV 9.5 9.4 - 12.9 fl 06/06/2019 5:05 PM CDT [facility] Neutrophils % 78.3(H) 44.0 - 73.0 % 06/06/2019 5:05 PM CDT [facility] Lymphocytes % 11.7(L) 20.0 - 43.0 % 06/06/2019 5:05 PM CDT [facility] Monocytes % 6.9 5.0 - 13.0 % 06/06/2019 5:05 PM CDT [facility] Eosinophils % 0.2 0.0 - 6.0 % 06/06/2019 5:05 PM CDT [facility] Basophils % 0.4 0.0 - 2.0 % 06/06/2019 5:05 PM CDT [facility] Immature Granulocytes 2.5(H) 0 - 1 % 06/06/2019 5:05 PM CDT [facility] Neutrophil Absolute 14.20(H) 2.01 - 7.14 x10E9/L 06/06/2019 5:05 PM CDT [facility] Lymphocytes Absolute 2.13 1.07 - 3.94 x10E9/L 06/06/2019 5:05 PM CDT [facility] Monocytes Absolute 1.26(H) 0.26 - 1.07 x10E9/L 06/06/2019 5:05 PM CDT [facility] Eosinophils Absolute 0.03 0 - 0.47 x10E9/L 06/06/2019 5:05 PM CDT [facility] Basophils Absolute 0.07 0 - 0.08 x10E9/L 06/06/2019 5:05 PM CDT [facility] Immature Granulocytes Absolute 0.45(H) 0.00 - 0.06 x10E9/L 06/06/2019 5:05 PM CDT [facility] nRBC Auto 0 /100 WBC 06/06/2019 5:05 PM CDT [facility] Blood BLOOD SPECIMEN / Unknown Venipuncture / Unknown 06/06/2019 4:48 PM CDT 06/06/2019 5:01 PM CDT Patsy Tuttle MD LAB - HEMATOLOGY ORD ERABLES Performing Organization Address City/[facility]/ZIP Co de Phone Number [facility] [address] [address] [place] [phone] * CULTURE BLOOD (06/06/2019 4:48 PM CDT) [facility] Culture No growth day 5 JHOANA 06/11/2019 9:00 PM CDT [facility] Blood PERIPHERAL BLOOD / Unknown Venipuncture / Unknown 06/06/2019 4:48 PM CDT 06/06/2019 5:03 PM CDT Patsy Tuttle MD LAB - MICROBIOLOGY O RDERABLES Performing Organization Address City/[facility]/ZIP Co de Phone Number [facility] [address] [phone] * EKG 12-LEAD (06/06/2019 4:27 PM CDT) Ventricular Rate 67 BPM [facility] Atrial Rate 67 BPM [facility] P-R Interval 156 ms [facility] QRS Duration ms 86 ms [facility] Q-T Interval ms 462 ms [facility] QTC Calculation (Bezet) 488 ms [facility] Calculated P [place] 35 degrees [facility] Calculated R [place] 23 degrees [facility] Calculated T [place] -5 degrees [facility] Interpretation EKG Normal sinus rhythm ST & T wave abnormality, consider inferior ischemia Abnormal ECG No previous ECGs available Confirmed by Christina Mancuso ([id number]) on 06/07/2019 12:44:36 PM [facility] 06/06/2019 4:27 PM CDT 06/07/2019 12:44 PM CDT Patsy Tuttle MD ECG ORDERABLES [facility] documented in this encounter Visit Diagnoses Diagnosis SOB (shortness of breath) Shortness of breath Fever, unspecified fever cause HCAP (healthcare-associated pneumonia) Pneumonia, organism unspecified Sepsis, due to unspecified organism, unspecified whether acute organ dysfunction present (HCC) documented in this encounter Administered Medications Inactive Administered Medications - up to 3 most recent administrations Medication Order MAR Action Action Date Dose Rate Site 0.9% NaCl injection 1-10 mL 1-10 mL, Intracatheter, PRN, Other, peripheral line flush, Starting on Thu06/06/19 at 1636, Until Thu06/06/19 at 2359, Flush peripheral IV catheter with 1-10 mL of normal saline before and after medications and prn to clear blood from the line or to verify patency. 0.9% NaCl injection 3 mL 3 mL, Intracatheter, EVERY 8 HOURS, First dose on Thu06/06/19 at 1715, Until Discontinued, Flush peripheral IV catheter with 3 mL of normal saline every 8 hours. cefepime (MAXIPIME) 2,000 mg in 0.9% NaCl 50 mL IVPB 2,000 mg (2 g), at 100 mL/hr, Intravenous, EVERY 8 HOURS, First dose on Thu06/06/19 at 1715, Until Discontinued, Indication for anti-infective therapy: Suspected infection, Site of anti-infective therapy: Other, Other site of infection (free text): Sepsis Unknown Origin - Healthcare associated $ New Bag/Syringe 06/06/2019 5:18 PM CDT 2,000 mg 100 mL/hr lactated ringers infusion at 125 mL/hr, Intravenous, CONTINUOUS, Starting on Thu06/06/19 at 1645, Until Thu06/06/19 at 2359 lactated ringers IV bolus 2,313 mL (30 mL/kg ? 77.1 kg), at 2,313 mL/hr, Administer over 60 Minutes, BOLUS IV, 1 dose, On Thu06/06/19 at 1645, Monitor closely and notify physician for persistent hypotension during initial 60 minutes after crystalloid 30 ml/kg bolus stop time. (hypotension = SBP LESS than 90 mmHg or MAP LESS than 65 mmHG or decrease in SBP by more than 40 mmHg from last SBP considered normal for patient) $ New Bag/Syringe 06/06/2019 5:20 PM CDT 2,313 mL 2313 mL/hr lidocaine (UROJET) 2 % jelly ADS Med 1 dose, Starting on Thu06/06/19 at 1941, Until Thu06/06/19 at 1955, Created by cabinet override lidocaine (UROJET) 2 % jelly Urethral, ONCE, 1 dose, On Thu06/06/19 at 2000 $ Given 06/06/2019 7:55 PM CDT vancomycin (VANCOCIN) 1,250 mg in 0.9% NaCl 275 mL IVPB 1,250 mg (rounded from 1,156.5 mg = 15 mg/kg ? 77.1 kg), at 220 mL/hr, Intravenous, EVERY 12 HOURS, First dose on Thu06/06/19 at 1745, Until Discontinued, Refrigerate, Indication for anti-infective therapy: Suspected infection, Site of anti-infective therapy: Other, Other site of infection (free text): Sepsis Unknown Origin - Healthcare associated vancomycin (VANCOCIN) 2,000 mg in 0.9% NaCl 540 mL IVPB 2,000 mg (rounded from 1,927.5 mg = 25 mg/kg ? 77.1 kg), at 270 mL/hr, Intravenous, ONCE, 1 dose, On Thu06/06/19 at 1715, Refrigerate, Indication for anti-infective therapy: Suspected infection, Site of anti-infective therapy: Other, Other site of infection (free text): Sepsis Unknown Origin - Healthcare associated $ New Bag/Syringe 06/06/2019 5:55 PM CDT 2,000 mg 270 mL/hr vancomycin (VANCOCIN) IV dose per pharmacy Does not apply, DIRECTED, Starting on Thu06/06/19 at 1640, Until Thu06/06/19 at 2359, Indication for anti-infective therapy: Suspected infection, Site of anti-infective therapy: Other, Other site of infection (free text): Sepsis Unknown Origin - Healthcare associated documented in this encounter Active and Recently Administered Medications Times are shown in CDT. Scheduled Medication Order 06/04/2019 06/05/2019 06/06/2019 0.9% NaCl injection 3 mL(Linked Group 1) 3 mL, Intracatheter, EVERY 8 HOURS, First dose on Thu06/06/19 at 1715, Until Discontinued, Flush peripheral IV catheter with 3 mL of normal saline every 8 hours. 1715 (Due)2200 (Due) cefepime (MAXIPIME) 2,000 mg in 0.9% NaCl 50 mL IVPB 2,000 mg (2 g), at 100 mL/hr, Intravenous, EVERY 8 HOURS, First dose on Thu06/06/19 at 1715, Until Discontinued, Indication for anti-infective therapy: Suspected infection, Site of anti-infective therapy: Other, Other site of infection (free text): Sepsis Unknown Origin - Healthcare associated 1718 ($ New Bag/Syri nge - Provider: Alanis King RN)1755 (Stopped - Provider: Alanis King RN) lactated ringers IV bolus (COMPLETED)(Linked Group 2) 2,313 mL (30 mL/kg ? 77.1 kg), at 2,313 mL/hr, Administer over 60 Minutes, BOLUS IV, 1 dose, On Thu06/06/19 at 1645, Monitor closely and notify physician for persistent hypotension during initial 60 minutes after crystalloid 30 ml/kg bolus stop time. (hypotension = SBP LESS than 90 mmHg or MAP LESS than 65 mmHG or decrease in SBP by more than 40 mmHg from last SBP considered normal for patient) 1720 ($ New Bag/Syri nge - Provider: Alanis King RN)1820 (Stopped - Provider: French Zuluaga RN) lidocaine (UROJET) 2 % jelly (COMPLETED) Urethral, ONCE, 1 dose, On Thu06/06/19 at 2000 1955 ($ Given - Prov ider: Elena Gibbons RN) vancomycin (VANCOCIN) 1,250 mg in 0.9% NaCl 275 mL IVPB 1,250 mg (rounded from 1,156.5 mg = 15 mg/kg ? 77.1 kg), at 220 mL/hr, Intravenous, EVERY 12 HOURS, First dose on Thu06/06/19 at 1745, Until Discontinued, Refrigerate, Indication for anti-infective therapy: Suspected infection, Site of anti-infective therapy: Other, Other site of infection (free text): Sepsis Unknown Origin - Healthcare associated vancomycin (VANCOCIN) 2,000 mg in 0.9% NaCl 540 mL IVPB (COMPLETED) 2,000 mg (rounded from 1,927.5 mg = 25 mg/kg ? 77.1 kg), at 270 mL/hr, Intravenous, ONCE, 1 dose, On Thu06/06/19 at 1715, Refrigerate, Indication for anti-infective therapy: Suspected infection, Site of anti-infective therapy: Other, Other site of infection (free text): Sepsis Unknown Origin - Healthcare associated 1755 ($ New Bag/Syri nge - Provider: Alanis King RN)1955 (Stopped - Provider: French Zuluaga RN) vancomycin (VANCOCIN) IV dose per pharmacy Does not apply, DIRECTED, Starting on Thu06/06/19 at 1640, Until Thu06/06/19 at 2359, Indication for anti-infective therapy: Suspected infection, Site of anti-infective therapy: Other, Other site of infection (free text): Sepsis Unknown Origin - Healthcare associated Continuous Medication Order 06/04/2019 06/05/2019 06/06/2019 lactated ringers infusion(Linked Group 2) at 125 mL/hr, Intravenous, CONTINUOUS, Starting on Thu06/06/19 at 1645, Until Thu06/06/19 at 2359 1645 (Due) PRN Medication Order 06/04/2019 06/05/2019 06/06/2019 0.9% NaCl injection 1-10 mL(Linked Group 1) 1-10 mL, Intracatheter, PRN, Other, peripheral line flush, Starting on Thu06/06/19 at 1636, Until Thu06/06/19 at 2359, Flush peripheral IV catheter with 1-10 mL of normal saline before and after medications and prn to clear blood from the line or to verify patency. Linked Groups Order Group 1: SALINE LOCK, INSERT AND MAINTAIN (CANCELED) Routine, CONTINUOUS, Starting on Thu06/06/19 at 1645, Until Specified, New collection And 0.9% NaCl injection 3 mLJump to med 3 mL, Intracatheter, EVERY 8 HOURS, First dose on Thu06/06/19 at 1715, Until Discontinued, Flush peripheral IV catheter with 3 mL of normal saline every 8 hours. And 0.9% NaCl injection 1-10 mLJump to med 1-10 mL, Intracatheter, PRN, Other, peripheral line flush, Starting on Thu06/06/19 at 1636, Until Thu06/06/19 at 2359, Flush peripheral IV catheter with 1-10 mL of normal saline before and after medications and prn to clear blood from the line or to verify patency. Group 2: lactated ringers IV bolus (COMPLETED)Jump to med 2,313 mL (30 mL/kg ? 77.1 kg), at 2,313 mL/hr, Administer over 60 Minutes, BOLUS IV, 1 dose, On Thu06/06/19 at 1645, Monitor closely and notify physician for persistent hypotension during initial 60 minutes after crystalloid 30 ml/kg bolus stop time. (hypotension = SBP LESS than 90 mmHg or MAP LESS than 65 mmHG or decrease in SBP by more than 40 mmHg from last SBP considered normal for patient) Followed by lactated ringers infusionJump to med at 125 mL/hr, Intravenous, CONTINUOUS, Starting on Thu06/06/19 at 1645, Until Thu06/06/19 at 2359 documented in this encounter Additional Health Concerns Infection Onset Date Last Indicated Resolved Time COVID-19 Under Investigation 06/06/2019 06/07/2019 06/07/2019 6:09 AM CDT documented as of this encounter Care Teams Water/Wastewater Engineer Relationship Specialty Start Date End Date Ilan Pearson MD [address] [place] [place] [id number] PCP - General Family Medicine 05/25/19 documented as of this encounter
--- OUTSIDE RECORDS SUMMARY | 2024-02-27 10:40 | XMS_ITS | Encounter Summary ---
Author Organization [facility] Health Address [address] [place] [address] Care Team Providers Care Ground Water Technician Name Role Phone Ilan Pearson MD Primary Care Provider [phone] Reason for Visit * Reason Comments Surgical Follow-up Cervical spine C3-4 Encounter Details Date Type Department Care Team (Late st Contact Info) Description 07/12/2019 10:00 AM CDT Office Visit [facility] - Orthopedics [address] [place] [address] French Kim MD [address] [place] [address] Central cord syndrome, initial encounter (HCC) (Primary Dx); Other closed nondisplaced fracture of fourth cervical vertebra with routine healing, subsequent encounter; S/P cervical spinal fusion Social History Tobacco [...] Sign Reading Time Taken Comments Blood Pressure 97/61 07/12/2019 10:59 AM CDT Pulse 88 07/12/2019 10:59 AM CDT Temperature - - Respiratory Rate - - Oxygen Saturation 99% 07/12/2019 10:59 AM CDT Inhaled Oxygen Concentration - - Weight - - Height - - Body Mass Index - - documented in this encounter Functional Status Functional [...] this encounter Patient Instructions * Patient Instructions* Kamron Corrigan MD - 07/12/2019 11:25 AM CDT Ajit Tyler 07/12/2019 Follow up: In 6 weeks with XRs Please contact our clinic call center at if you need to schedule or change an appointment. For medical emergencies please call 911. Please contact Mina Denise RN at or through [employer] if you have any further questions or concerns. [facility] office contact information: Critical access hospital ([facility]) [address] [place] [address] [place] [address], [place] [address] July 12, 2019 To Whom It May Concern: Please use this letter to document that Ajit Tyler, : 1960, was in to see French Kim MD on 07/12/2019. Thank you. Sincerely, French Kim MD [facility] documented in this encounter Progress Notes * Catina Suarez - 07/12/2019 11:35 AM CDT Chief Complaint: Chief Complaint Patient presents with ??? Surgical Follow-up Cervical spine C3-4 BP 97/61 (BP SITE: RIGHT ARM, BP POSITION: SITTING, BP CUFF SIZE: 11L) Pulse 88 SpO2 99% * Kamron Corrigan MD - 07/12/2019 11:02 AM CDT [facility] Orthopedic Spine Surgery Clinic Note Ajit Tyler, 59 year old, male : 1960 CSN: [id number] Primary Care Physician: Ilan Pearson MD Diagnosis/Procedures 1.) C3-4 Fracture Subluxation 2) Central Cord syndrome 3) Status Post cervical spinal fusion Date of Injury: 05/25/19 Date of Surgery: 05/27/19 Procedures Performed: 1. Operative treatment of C4 fracture subluxation. 2. Posterior instrumentation, C2 to C5. 3. Posterior arthrodesis C2 to C4. 4. C3 and C4 decompressive laminectomies. ?? Time Since injury/surgery: 6 weeks HPI Date of this clinic visit: 07/12/2019 This is a 59 year old male with history of the above who is here for follow-up clinic appointment. He is doing well overall and feels like he has made progress in rehab. He is accompanied in clinic by his . Pain is located in neck and shoulders bilaterally, has history of bilateral rotator cuffinjuries. He feels as if his upper extremity weakness is improving. He is now at home. Ambulates with assist currently, uses motorized scooter in public. Denies new numbness/paresthesias or bowel/bladder retention or incontinence. ROS otherwise negative. Smoking status: Former Objective BP 97/61 (BP SITE: RIGHT ARM, BP POSITION: SITTING, BP CUFF SIZE: 11L) Pulse 88 SpO2 99% PMHx No past medical history on file. PSHx Past Surgical History: Procedure Laterality Date ??? Cervical Fusion ??? Cervical Fusion N/A 05/27/2019 N/A; C2 to C5 Posterior Interbody Spinal Fusion, C3-C4 Laminectomies, and possible decompression ofC3/4 Injury Social Hx Social History Tobacco Use ??? Smoking status: Never Smoker ??? Smokeless tobacco: Never Used Substance Use Topics ??? Alcohol use: Not Currently Family Hx family history is not on file. Allergies Allergies Allergen Reactions ??? Gabapentin Skin Reactions and Unknown ??? Iodine [Povidone Iodine] Skin Reactions ??? Lactose Diarrhea ??? Mercurycom [Other] Skin Reactions Medications Current Outpatient Medications Medication ??? acetaminophen (TYLENOL) 500 MG tablet ??? apixaban (ELIQUIS) 2.5 MG tablet ??? Artificial Saliva (CAPHOSOL) ??? bisacodyl (DULCOLAX) 10 MG suppository ??? calcium carbonate (TUMS) 500 MG chew tablet ??? cyclobenzaprine (FLEXERIL) 5 MG tablet ??? docusate sodium (COLACE) 100 MG capsule ??? montelukast (SINGULAIR) 10 MG tablet ??? oxyCODONE, immediate release, (ROXICODONE) 5 MG tablet ??? phenol (CHLORASEPTIC) 1.4 % liquid ??? polyethylene glycol 3350 (MIRALAX) packet No current facility-administered medications for this visit. Review of Systems - Bowel/Bladder incontinence or retention: Denies - Numbness/paresthesias to extremities: Denies - Hand clumsiness/loss of fine motor skills: yes, improving - Balance problems: Denies Review of all other systems was negative. Physical Exam General appearance: awake, cooperative, NAD Neck: -Tenderness to palpation: none -ROM: Diminished range of motion - Incision well healed. Bilateral Upper Extremity: - Motor: Shoulder Abduction (C5) 2/5 Elbow Extension (C7) 2/5 Elbow Flexion (C5-palm up; C6 - thumb up) 2/5 Wrist Extension (C6) 2/5 Wrist Flexion (C7) 2/5 Finger Flexion (C8) 2/5 Finger Abduction (T1) 2/5 - Sensory: Intact to light touch distally } - Reflexes: Biceps: Normal Triceps: Normal BR: Normal Bilateral Lower Extremity: - Motor: Hip Flexion (L2/3) 5/5 Knee Flexion 5/5 Knee Extension (L4) 5/5 Ankle Dorsiflexion (L5) 5/5 Great Toe Extension (L5) 5/5 Ankle Plantarflexion (S1) 5/5 - Sensation: Intact to light touch distally - Reflexes: Knee Jerk: Normal Achilles: Normal Babinski: Deferred Gait - Walks with reciprocal heel/toe gait. Able to demonstrate heel walk, toe walk, and tandem gait without difficulty. Imaging - XR Cervical reviewed. Demonstrate intact hardware with unchanged alignment compared to prior film Assessment/Plan: Ajit Tyler is a 59 year old male 6 weeks s/p the above doing well overall - Patient was counseled to the nature of their diagnosis and demonstrated understanding - Lifting/Activity restrictions: none - No lifting greater than 10 lbs, no repetitiive bending or twisting - Continue Physical therapy regimen - Follow up in 6 weeks - Follow up Imaging: Cervical spine films Kamron Corrigan MD 07/12/2019 Attending Physician Supervisory Note I personally interviewed and examined the patient and agree with the doctor above. French Kim MD documented in this encounter Plan of Treatment Not on file documented as of this encounter Results * XR CERVICAL SPINE 2 OR 3VW (07/12/2019 11:24 AM CDT) Anatomical Region Laterality Modality Spine Radiographic Radha ging 07/12/2019 11:3 0 AM CDT Impressions 07/13/2019 8:42 AM CDT IMPRESSION: Postoperative changes from spinal fusions, unchanged in alignment. Dictated by Blaine Santos MD (resident athletic trainer). I, Dr. AL LAWTON MD have personally reviewed and interpreted this examination/study. This report was electronically signed by AL LAWTON MD ??on 07/13/2019 8:42 AM . Narrative 07/13/2019 8:42 AM CDT EXAMINATION: XR CERVICAL SPINE 2 VW HISTORY: S14.129A: Central cord syndrome, initial encounter COMPARISON: Cervical spine radiographs from 05/31/2019. Cervical spine CT dated 05/25/2019. FINDINGS: C7 is obscured on lateral view. The patient is status post posterior instrumented spinal fusion from C2 to C5 and anterior spinal fusion from C4 to C7. The instrumentation is intact. The osseous alignment is unchanged. C4 posterior element fractures depicted on the prior CT are not well visualized. Bony fusion between the C4-5 and C5-6 vertebral bodies is evident. Procedure Note Al Lawton MD - 07/13/2019 EXAMINATION: XR CERVICAL SPINE 2 VW HISTORY: S14.129A: Central cord syndrome, initial encounter COMPARISON: Cervical spine radiographs from 05/31/2019. Cervical spine CT dated 05/25/2019. FINDINGS: C7 is obscured on lateral view. The patient is status post posterior instrumented spinal fusion from C2to C5 and anterior spinal fusion from C4 to C7. The instrumentation is intact. The osseous alignment is unchanged. C4 posterior elementfractures depicted on the prior CT are not well visualized. Bony fusion betweenthe C4-5 and C5-6 vertebral bodies is evident. IMPRESSION: Postoperative changes from spinal fusions, unchanged in alignment. Dictated by Blaine Santos MD (resident athletic trainer). I, Dr. AL LAWTON MD have personally reviewed and interpreted this examination/study. This report was electronically signed by AL LAWTON MD on07/13/2019 8:42 AM . Kamron Corrigan MD DIAGNOSTIC I MAGING ORDERABLES documented in this encounter Visit Diagnoses Diagnosis Central cord syndrome, initial encounter (HCC)- Primary Other closed nondisplaced fracture of fourth cervical vertebra with routine healing, subsequent encounter S/P cervical spinal fusion Arthrodesis status Central cord syndrome, initial encounter (HCC) documented in this encounter Care Teams Ground Water Technician Relationship Specialty Start Date End Date Ilan Pearson MD [address] [place] [id number] PCP - General Family Medicine 05/25/19 documented as of this encounter
--- OUTSIDE RECORDS SUMMARY | 2024-02-27 10:40 | XMS_ITS | Patient Health Summary ---
Author Organization [facility] Address [address] [address] Care Team Providers Care Payable Processor Name Role Phone Ilan Pearson MD Primary Care Provider [phone] Note from [facility],non-owned Affiliates and Associated Physician Practices is amultiple site organization consisting of ambulatory clinics and hospital sitesin [place], [place], [place] and [place]. This disclosure is being madepursuant to the Care Everywhere program and may not contain all information available regarding this patient. Last updated 17.[facility] Allergies * Gabapentin(Skin Reactions,Unknown) * Povidone Iodine(Skin Reactions) * Lactose(Diarrhea) -Medium Criticality * mercurycom [Other](Skin Reactions) Medications * Be aware that medications may not be up to date on this document. Alwaysverify current medications with the patient. * meloxicam (MOBIC) 15 MG tablet(Started 09/13/2019) Take 15 mg by mouth once daily * celecoxib (CELEBREX) 200 MG capsule(Started 09/26/2019) * pregabalin (LYRICA) 25 MG capsule(Started 11/02/2019) Take 1 capsule by mouth 3 times daily 1 refill by 04/30/2020 * traMADol (ULTRAM) 50 MG tablet(Started 12/09/2019) Take 50 mg by mouth every 6 hours as needed Active Problems Problem Noted Date Diagnosed Date [...] Resolved Date Spinal injury 05/31/2019 08/23/2019 Immunizations * TDAP (7yrs+)(Given 05/25/2019) Social History Tobacco Use Types Packs/Day Years [...] Mass Index 23.19 05/30/2020 9:45 AM CDT Medical Devices Implanted Type Area Melter Clerk Device Identifier Shelf Expiration Date Model / Serial / Lot Screw Set Std Spne Implanted:Qty: 8 on 05/27/2019 by Esperanza Kim MD at [facility] [employer] [id number] / / Screw 4.5mm 20mm Ma Spne Oc Upr Thor Implanted:Qty: 1 on 05/27/2019 by Esperanza Kim MD at [facility] [employer]ine [id number] / / Screw 4.5mm 26mm Ma Spne Bone Implanted:Qty: 1 on 05/27/2019 by Esperanza Kim MD at [facility] [employer]ine [id number] / / Screw 3.5mm 20mm Ma Spne Bone Implanted:Qty: 4 on 05/27/2019 by Esperanza Kim MD at [facility] [employer] [id number] / / Screw 4.5mm 22mm Ma Spne Bone Implanted:Qty: 2 on 05/27/2019 by Esperanza Kim MD at [facility] [employer] Spine [id number] / / Slnt Dura Duraseal Pg Trilysine Amine 5 Implanted:Qty: 1 on 05/27/2019 by Esperanza Kim MD at [facility] [employer] Koko 06/15/2020 [id number] / / [id number] Usman Spnl 60mm 3.5mm Pcut Implanted:Qty: 2 on 05/27/2019 by Esperanza Kim MD at [facility] [employer]ine [id number] / / Procedures * XR LUMBAR SPINE 4VW OR MORE(Performed 05/30/2020) Performed for Chronic midline low back pain, unspecified whether sciatica present * XR CERVICAL SPINE 2 OR 3VW(Performed 05/30/2020) Performed for Central cord syndrome, subsequent encounter (HCC) * PROC CERUMEN REMOVAL(Performed 03/27/2020) Performed for Bilateral impacted cerumen * MN LARYNGOSCOPY,FLEX FIBER,DIAGNOSTIC(Performed 03/27/2020) Performed for Vocal cord paralysis * MN LARYNGOSCOPY,FLEX FIBER,DIAGNOSTIC(Performed 02/28/2020) Performed for Oropharyngeal dysphagia, Vocal cord paralysis * MN LARYNGOSCOPY,FLEX FIBER,DIAGNOSTIC(Performed 01/10/2020) Performed for Dysphagia, unspecified type * XR CERVICAL SPINE 2 OR 3VW(Performed 11/22/2019) Performed for S/P cervical spinal fusion * FL SWALLOWING FUNCTION STUDY(Performed 11/14/2019) Performed for Dysphagia, unspecified type * MN LARYNGOSCOPY,FLEX FIBER,DIAGNOSTIC(Performed 09/22/2019) Performed for Dysphagia, unspecified type, Vocal cord paralysis * XR CERVICAL SPINE 2 OR 3VW(Performed 08/23/2019) Performed for Neck pain * XR CERVICAL SPINE 2 OR 3VW(Performed 07/12/2019) Performed for Central cord syndrome, initial encounter (HCC) * BASIC METABOLIC PANEL (CALCIUM TOTAL)(Performed 07/07/2019) * CBC W/O DIFFERENTIAL(Performed 07/07/2019) * CBC W AUTO DIFFERENTIAL(Performed 07/04/2019) * BASIC METABOLIC PANEL (CALCIUM TOTAL)(Performed 07/04/2019) * CBC W AUTO DIFFERENTIAL(Performed 06/30/2019) * BASIC METABOLIC PANEL (CALCIUM TOTAL)(Performed 06/30/2019) * CBC W AUTO DIFFERENTIAL(Performed 06/27/2019) * BASIC METABOLIC PANEL (CALCIUM TOTAL)(Performed 06/27/2019) * CBC W AUTO DIFFERENTIAL(Performed 06/23/2019) * BASIC METABOLIC PANEL (CALCIUM TOTAL)(Performed 06/23/2019) * URINE MICROSCOPIC ONLY REFLEX TO CULTURE(Performed 06/22/2019) * URINALYSIS REFLEX MICROSCOPIC REFLEX CULTURE(Performed 06/22/2019) * CBC W AUTO DIFFERENTIAL(Performed 06/20/2019) * BASIC METABOLIC PANEL (CALCIUM TOTAL)(Performed 06/20/2019) * XR ABDOMEN KUB(Performed 06/17/2019) * CULTURE STREP GROUP A(Performed 06/16/2019) * STREP A SCREEN DIRECT W RFLX STREP A CULTURE(Performed 06/16/2019) * CBC W AUTO DIFFERENTIAL(Performed 06/16/2019) * BASIC METABOLIC PANEL (CALCIUM TOTAL)(Performed 06/16/2019) * CARDIAC EKG ORDER(Performed 06/13/2019) * BASIC METABOLIC PANEL (CALCIUM TOTAL)(Performed 06/13/2019) * CBC W AUTO DIFFERENTIAL(Performed 06/13/2019) * BASIC METABOLIC PANEL (CALCIUM TOTAL)(Performed 06/10/2019) * CBC W AUTO DIFFERENTIAL(Performed 06/10/2019) * ERYTHROCYTE SEDIMENTATION RATE(Performed 06/09/2019) Performed for Pneumonia due to infectious organism, unspecified laterality, unspecified part of lung * PROCALCITONIN LEVEL(Performed 06/09/2019) Performed for Pneumonia due to infectious organism, unspecified laterality, unspecified part of lung * CBC W AUTO DIFFERENTIAL(Performed 06/09/2019) Performed for Pneumonia due to infectious organism, unspecified laterality, unspecified part of lung * BASIC METABOLIC PANEL (CALCIUM TOTAL)(Performed 06/09/2019) Performed for Pneumonia due to infectious organism, unspecified laterality, unspecified part of lung * XR CHEST 2VW(Performed 06/08/2019) Performed for Pneumonia due to infectious organism, unspecified laterality, unspecified part of lung * MAGNESIUM BLOOD(Performed 06/08/2019) * VANCOMYCIN LEVEL RANDOM(Performed 06/08/2019) * CBC W AUTO DIFFERENTIAL(Performed 06/07/2019) * BASIC METABOLIC PANEL (CALCIUM TOTAL)(Performed 06/07/2019) * URINE MICROSCOPIC ONLY REFLEX TO CULTURE(Performed 06/06/2019) * URINALYSIS REFLEX MICROSCOPIC REFLEX CULTURE(Performed 06/06/2019) * TROPONIN I(Performed 06/06/2019) * SODIUM URINE RANDOM(Performed 06/06/2019) * POTASSIUM URINE RANDOM(Performed 06/06/2019) * OSMOLALITY BLOOD(Performed 06/06/2019) * CHLORIDE URINE RANDOM(Performed 06/06/2019) * XR CHEST 1VW PORTABLE(Performed 06/06/2019) Performed for SOB (shortness of breath), Fever, unspecified fever cause * CULTURE BLOOD(Performed 06/06/2019) * B-TYPE NATRIURETIC PEPTIDE(Performed 06/06/2019) * INTERLEUKIN-6(Performed 06/06/2019) * C-REACTIVE PROTEIN(Performed 06/06/2019) * FERRITIN(Performed 06/06/2019) * LDH BLOOD(Performed 06/06/2019) * TROPONIN I(Performed 06/06/2019) * PTT(Performed 06/06/2019) * PT-INR(Performed 06/06/2019) * PROCALCITONIN LEVEL(Performed 06/06/2019) * CK BLOOD(Performed 06/06/2019) * COMPREHENSIVE METABOLIC PANEL(Performed 06/06/2019) * CBC W AUTO DIFFERENTIAL(Performed 06/06/2019) * LACTIC ACID BLOOD(Performed 06/06/2019) * CULTURE BLOOD(Performed 06/06/2019) * EKG 12-LEAD(Performed 06/06/2019) Performed for SOB (shortness of breath) * SARS-COV-2 (COVID-19) IN HOUSE(Performed 06/06/2019) * RESPIRATORY PATHOGEN PANEL BY PCR(Performed 06/06/2019) * URINE MICROSCOPIC ONLY REFLEX TO CULTURE(Performed 06/06/2019) * URINALYSIS REFLEX MICROSCOPIC REFLEX CULTURE(Performed 06/06/2019) * C DIFFICILE GDH AG + TOXIN A+B(Performed 06/06/2019) * CULTURE STOOL+ E COLI SHIGA-LIKE TOXIN(Performed 06/06/2019) * CULTURE BLOOD(Performed 06/06/2019) * CULTURE BLOOD(Performed 06/06/2019) * CBC W/O DIFFERENTIAL(Performed 06/06/2019) * BASIC METABOLIC PANEL (CALCIUM TOTAL)(Performed 06/06/2019) * URINE MICROSCOPIC ONLY REFLEX TO CULTURE(Performed 06/05/2019) * URINALYSIS REFLEX MICROSCOPIC REFLEX CULTURE(Performed 06/05/2019) * URINALYSIS REFLEX MICROSCOPIC REFLEX CULTURE(Performed 06/02/2019) * CBC W/O DIFFERENTIAL(Performed 06/02/2019) * BASIC METABOLIC PANEL (CALCIUM TOTAL)(Performed 06/02/2019) * FERRITIN(Performed 06/01/2019) * IRON + TRANSFERRIN PANEL(Performed 06/01/2019) * CBC W/O DIFFERENTIAL(Performed 06/01/2019) * BASIC METABOLIC PANEL (CALCIUM TOTAL)(Performed 06/01/2019) * XR CERVICAL SPINE 2 OR 3VW(Performed 05/31/2019) Performed for Closed nondisplaced fracture of fourth cervical vertebra, unspecified fracture morphology, initial encounter (HCC) * PHOSPHORUS BLOOD(Performed 05/30/2019) * MAGNESIUM BLOOD(Performed 05/30/2019) * CBC W AUTO DIFFERENTIAL(Performed 05/30/2019) * BASIC METABOLIC PANEL (CALCIUM TOTAL)(Performed 05/30/2019) * PHOSPHORUS BLOOD(Performed 05/30/2019) * MAGNESIUM BLOOD(Performed 05/30/2019) * CBC W AUTO DIFFERENTIAL(Performed 05/30/2019) * BASIC METABOLIC PANEL (CALCIUM TOTAL)(Performed 05/30/2019) * URINALYSIS REFLEX TO MICROSCOPIC NO CULTURE(Performed 05/29/2019) * XR CHEST 1VW PORTABLE(Performed 05/29/2019) Performed for Closed nondisplaced fracture of fourth cervical vertebra, unspecified fracture morphology, initial encounter (HCC) * PHOSPHORUS BLOOD(Performed 05/29/2019) * MAGNESIUM BLOOD(Performed 05/29/2019) * CBC W AUTO DIFFERENTIAL(Performed 05/29/2019) * BASIC METABOLIC PANEL (CALCIUM TOTAL)(Performed 05/29/2019) * XR CHEST 1VW(Performed 05/28/2019) Performed for Posttraumatic respiratory insufficiency * PHOSPHORUS BLOOD(Performed 05/28/2019) * MAGNESIUM BLOOD(Performed 05/28/2019) * CBC W AUTO DIFFERENTIAL(Performed 05/28/2019) * BASIC METABOLIC PANEL (CALCIUM TOTAL)(Performed 05/28/2019) * FL OARM SURGERY(Performed 05/27/2019) Performed for Closed nondisplaced fracture of fourth cervical vertebra, unspecified fracture morphology, initial encounter ([facility]) * BLOOD GASES ART COMPLETE [facility] OR(Performed 05/27/2019) Performed for Trauma * CBC W/O DIFFERENTIAL(Performed 05/27/2019) Performed for Trauma * ARTERIAL LINE NOTE(Performed 05/27/2019) * FUSION POSTERIOR CERVICAL (PCF)(Performed 05/27/2019) Performed for Hyperextension injury of neck, initial encounter * ENDOTRACHEAL TUBE NOTE(Performed 05/27/2019) * XR CHEST 1VW PORTABLE(Performed 05/27/2019) Performed for Trauma * PT-INR [facility](Performed 05/27/2019) * PHOSPHORUS BLOOD(Performed 05/27/2019) * MAGNESIUM BLOOD(Performed 05/27/2019) * CBC W AUTO DIFFERENTIAL(Performed 05/27/2019) * BASIC METABOLIC PANEL (CALCIUM TOTAL)(Performed 05/27/2019) * PT EVAL AND TREAT(Performed 05/26/2019) * OT EVAL AND TREAT(Performed 05/26/2019) * PTT [facility](Performed 05/25/2019) * PT-INR [facility](Performed 05/25/2019) * CBC W AUTO DIFFERENTIAL(Performed 05/25/2019) * PHOSPHORUS BLOOD(Performed 05/25/2019) * MAGNESIUM BLOOD(Performed 05/25/2019) * BASIC METABOLIC PANEL (CALCIUM TOTAL)(Performed 05/25/2019) * DRUG SCREEN EXPANDED TOXICOLOGY URINE PANEL(Performed 05/25/2019) * URINALYSIS REFLEX TO MICROSCOPIC NO CULTURE(Performed 05/25/2019) * BLOOD GASES ARTERIAL(Performed 05/25/2019) * XR CHEST 1VW PORTABLE(Performed 05/25/2019) Performed for Hypoxemia * XR CERVICAL SPINE 2 OR 3VW(Performed 05/25/2019) Performed for Closed nondisplaced fracture of fourth cervical vertebra, unspecified fracture morphology, initial encounter ([facility]) * ABO TYPE: RETYPE-PATIENT RESULT ONLY(Performed 05/25/2019) * MRI CERVICAL SPINE WO CONTRAST(Performed 05/25/2019) Performed for Trauma * CT ANGIO BRAIN AND NECK(Performed 05/25/2019) Performed for Trauma * CT HEAD WO CONTRAST(Performed 05/25/2019) Performed for Trauma * CT FACIAL BONES WO CONTRAST(Performed 05/25/2019) Performed for Trauma * CT LUMBAR SPINE WO CONTRAST(Performed 05/25/2019) Performed for Trauma * CT THORACIC SPINE WO CONTRAST(Performed 05/25/2019) Performed for Trauma * CT CERVICAL SPINE WO CONTRAST(Performed 05/25/2019) Performed for Trauma * CT CHEST ABDOMEN PELVIS W CONT(Performed 05/25/2019) Performed for Trauma * PREPARE RBC LEUKOREDUCED UNIT(Performed 05/25/2019) * PREPARE RBC LEUKOREDUCED UNIT(Performed 05/25/2019) Performed for Trauma * PREPARE RBC LEUKOREDUCED UNIT(Performed 05/25/2019) * TYPE + SCREEN PANEL(Performed 05/25/2019) * ALCOHOL ETHYL BLOOD(Performed 05/25/2019) * LIPASE BLOOD(Performed 05/25/2019) * LACTIC ACID BLOOD(Performed 05/25/2019) * CBC W AUTO DIFFERENTIAL(Performed 05/25/2019) * COMPREHENSIVE METABOLIC PANEL(Performed 05/25/2019) * XR PELVIS 1 OR 2VW(Performed 05/25/2019) Performed for Trauma * XR CHEST 1VW(Performed 05/25/2019) Performed for Trauma Results * XR LUMBAR SPINE 4VW OR [...] deformity. Report dictated by Tereso Torres MD (residential coordinator). I, Dr. SUSAN CHAN have personally reviewed and interpreted this examination/study. This report was electronically signed by SUSAN CHAN ??on 05/31/2020 8:00 AM . Narrative [...] There is mild facet arthropathy. Procedure Note Susan Chan DO - 05/31/2020 EXAMINATION: XR CERVICAL [...] deformity. Report dictated by Tereso Torres MD (residential coordinator). I, Dr. SUSAN CHAN have personally reviewed and interpreted this examination/study. This report was electronically signed by SUSAN CHAN on 05/31/2020 8:00 AM . Sachin Bloom MD DIAGNOSTIC IMAGING O RDERABLES * XR CERVICAL SPINE 2 OR 3VW (05/30/2020 11:12 AM CDT) Only the most recent of6 resultswithin the time period is included. Anatomical Region Laterality Modality Spine Radiographic Radha ging 05/30/2020 11:2 1 AM CDT Impressions 05/31/2020 8:00 AM CDT IMPRESSION: 1.C2-C5 posterior spinal fusion and C4-C7 anterior spinal fusion with unchanged alignment. 2.Mild to moderate degenerative changes of the lumbar spine. No acute fracture or compression deformity. Report dictated by Tereso Torres MD (residential coordinator). I, Dr. SUSAN CHAN have personally reviewed and interpreted this examination/study. This report was electronically signed by SUSAN CHAN ??on 05/31/2020 8:00 AM . Narrative [...] There is mild facet arthropathy. Procedure Note Susan Chan DO - 05/31/2020 EXAMINATION: XR CERVICAL [...] deformity. Report dictated by Tereso Torres MD (residential coordinator). I, Dr. SUSAN CHAN have personally reviewed and interpreted this examination/study. This report was electronically signed by SUSAN CHAN on 05/31/2020 8:00 AM . Sachin Bloom MD DIAGNOSTIC IMAGING O RDERABLES * PROC CERUMEN REMOVAL (03/27/2020 12:36 PM CASTING MACHINE ADJUSTER) Narrative Kalen Mcfarlane MD - 03/27/2020 12:36 PM CASTING MACHINE ADJUSTER Kalen Mcfarlane MD ? 03/27/2020 ??1:05 PM [...] Aggarwal MD PROCEDURE/MINOR SURG ICAL ORDERABLES * MN LARYNGOSCOPY,FLEX FIBER,DIAGNOSTIC (03/27/2020 12:33 PM CASTING MACHINE ADJUSTER) Narrative Kalen Mcfarlane MD - 03/27/2020 12:33 PM CASTING MACHINE ADJUSTER Kalen Mcfarlane MD ? 03/27/2020 ??1:05 PM [...] Aggarwal MD PROCEDURE/MINOR SURG ICAL ORDERABLES * MN LARYNGOSCOPY,FLEX FIBER,DIAGNOSTIC (02/28/2020 1:09 PM CASTING MACHINE ADJUSTER) Narrative Ernesto Aggarwal MD - 02/28/2020 1:09 PM CASTING MACHINE ADJUSTER Harley Hall MD ? 02/28/2020 ??1:27 PM Procedure Note Endoscopy Type: ??Laryngoscopy without stroboscopy Endoscope: Flexible 4mm Scope Anesthesia: Lidocaine 2% and Neosynephrine 1/2% (nasal) Procedure Details: The patient was sitting upright in a chair with the head in a slightly anterior sniffing position. The topical anesthesia was administered and then adequate time was allowed ??for an anesthetic effect. The endoscope was passed through the nasal cavity with the tongue retracted anteriorly. The tip of the endoscope was positioned in the oropharynx which allowed a complete view of the base of tongue, vallecula, pyriform recesses, epiglottis, bilateral true and false vocal folds, the interarytenoid and post cricoid region, and the immediate subglottis. Findings: Right cord fully mobile. L cord has decreased mobility but some improvement compared to previous exam. There appears to be adequate cord closure on phonation. Postcricoid mucosa erythematous and assymmetric on left as seen on previous examination, but definitely improved. Condition: Stable. ??Patient tolerated procedure well. Complications: None Dr Aggarwal was present for the entirety of the procedure. Jeffrey Hall MD Otolaryngology Resident 02/28/2020 Ernesto Aggarwal MD PROCEDURE/MINOR SURG ICAL ORDERABLES * MN LARYNGOSCOPY,FLEX FIBER,DIAGNOSTIC (01/10/2020 1:11 PM CASTING MACHINE ADJUSTER) Narrative Ernesto Aggarwal MD - 01/10/2020 1:11 PM CASTING MACHINE ADJUSTER Ernesto Aggarwal MD ? 01/10/2020 ??1:12 PM Procedure Note Endoscopy Type: ??Laryngoscopy without stroboscopy 07169 Endoscope: Flexible 4mm Scope Anesthesia: Lidocaine 2% [...] cricoid region, and the immediate subglottis. Findings: Room 3K Pentax. Palate elevates symmetrically. The posterior pharyngeal wall the midline is relatively adynamic but the piriforms squeeze bilaterally. The right cord is fully mobile left cord has decreased mobility but there is some appears to be elevation as the vocal cord approximates in the midline and there is an adequate voice. There is a open base to the piriform sinuses however I cannot see the posterior cricoid mucosa clearly nor the cervical esophagus. It is concern that there may be some sticking of the mucosa to the plate in this area and possibly even some erythema or irritation this area. Condition: Stable. ??Patient tolerated procedure well. Complications: None I was present for the entirety of the procedure. Ernesto Aggarwal MD PROCEDURE/MINOR SURG ICAL ORDERABLES * FL SWALLOWING FUNCTION STUDY (11/14/2019 2:07 PM CDT) Anatomical Region Laterality Modality Chest Radiographic Radha ging 11/17/2019 12:0 0 PM CDT Impressions 11/18/2019 1:37 PM CDT IMPRESSION: Fluoroscopic assistance was provided for a modified barium swallow test performed by Speech Therapy. Please see the Speech Therapy report for details. Dictated by Jalen Gooden MD (residential coordinator). IDr. PRICILLA have personally reviewed and interpreted this examination/study. This report was electronically signed by PRICILLA MANCILLA ??on 11/18/2019 1:37 PM . Narrative 11/18/2019 1:37 PM CDT EXAMINATION: Modified barium swallow HISTORY: R13.10: Dysphagia, unspecified type COMPARISON: No prior study is available for comparison. FLUOROSCOPY TIME: 1.7 minutes Procedure Note Pricilla Mancilla MD - 11/18/2019 EXAMINATION: Modified barium swallow HISTORY: R13.10: Dysphagia, unspecified type COMPARISON: No prior study is available for comparison. FLUOROSCOPY TIME: 1.7 minutes IMPRESSION: Fluoroscopic assistance was provided for a modified barium swallow test performed by Speech Therapy. Please see the Speech Therapy report for details. Dictated by Jalen Gooden MD (residential coordinator). Dr. PRICILLA Barnes have personally reviewed and interpreted this examination/study. This report was electronically signed by PRICILLA MANCILLA on 11/18/20191:37 PM . Ernesto Aggarwal MD FLUOROSCOPY ORDERABL ES * MN LARYNGOSCOPY,FLEX FIBER,DIAGNOSTIC (09/22/2019 11:04 AM CDT) Narrative Zaria New - 09/22/2019 11:04 AM CDT Zaria New ? 09/22/2019 ??1:35 PM See procedure note in the progress note from this date. Ernesto Aggarwal MD PROCEDURE/MINOR SURG ICAL ORDERABLES * CBC W/O DIFFERENTIAL (07/07/2019 4:59 AM CDT) Only the most recent of5 resultswithin the time period is included. WBC 7.9 4.4 - 10.7 x10E9/L 07/07/2019 7:06 AM CDT [facility] RBC 4.43 3.80 - 5.40 x10E12/L 07/07/2019 7:06 AM CDT [facility] Hemoglobin 12.2 12.0 - 17.6 gm/dL 07/07/2019 7:06 AM CDT [facility] Hematocrit 38.2 35.2 - 51.7 % 07/07/2019 7:06 AM CDT [facility] MCV 86.2 80.7 - 98.3 fl 07/07/2019 7:06 AM CDT [facility] MCH 27.5 26.7 - 34.0 pg 07/07/2019 7:06 AM CDT [facility] MCHC 31.9 30.8 - 35.9 gm/dL 07/07/2019 7:06 AM CDT [facility] Platelet Count 342 153 - 416 x10E9/L 07/07/2019 7:06 AM CDT [facility] RDW-CV 13.0 12.1 - 14.9 % 07/07/2019 7:06 AM CDT [facility] MPV 10.5 9.4 - 12.9 fl 07/07/2019 7:06 AM CDT [facility] Blood BLOOD SPECIMEN / Unknown 07/07/2019 4:59 AM CDT 07/07/2019 6:56 AM CDT Catalina Patricia WASHER ASSEMBLER-INDUSTRIAL ECOLOGY TECHNICIAN LAB - HEMATOLOGY ORDERABLES Performing Organization Address City/State/[facility] Co de Phone Number [facility] [address] [place] [address] * (ABNORMAL) BASIC METABOLIC PANEL (CALCIUM TOTAL) (07/07/2019 4:59 AM CDT) Only the most recent of20 resultswithin the time period is included. [facility] Glucose 84 70 - 105 mg/dL 07/07/2019 7:59 AM CDT [facility] Sodium 138 136 - 145 mmol/L 07/07/2019 7:59 AM CDT [facility] Potassium 4.0 3.5 - 5.1 mmol/L 07/07/2019 7:59 AM CDT [facility] Chloride 102 98 - 107 mmol/L 07/07/2019 7:59 AM CDT [facility] CO2 24 23 - 31 mmol/L 07/07/2019 7:59 AM CDT [facility] Calcium 9.0 8.4 - 10.4 mg/dL 07/07/2019 7:59 AM CDT [facility] Anion Gap 12 8 - 16 mmol/L 07/07/2019 7:59 AM CDT [facility] BUN 10 8.4 - 25.7 mg/dL 07/07/2019 7:59 AM CDT [facility] Creatinine 0.60(L) 0.72 - 1.25 mg/dL 07/07/2019 7:59 AM CDT [facility] eGFR by MDRD >60 >60 mL/min/1.7 3m2 07/07/2019 7:59 AM CDT [facility] eGFR by MDRD >60 >60 mL/min/1.7 3m2 07/07/2019 7:59 AM CDT [facility] Blood BLOOD SPECIMEN / Unknown 07/07/2019 4:59 AM CDT 07/07/2019 6:56 AM CDT Catalina Patricia WASHER ASSEMBLER-INDUSTRIAL ECOLOGY TECHNICIAN LAB - CHEMISTRY O RDERABLES [facility] [address] [place] [address] * CBC W AUTO DIFFERENTIAL (07/04/2019 5:35 AM CDT) Only the most recent of18 resultswithin the time period is included. WBC 7.1 4.4 - 10.7 x10E9/L 07/04/2019 8:03 AM CDT [facility] WBC Corrected 07/04/2019 8:03 AM CDT [facility] RBC 4.45 3.80 - 5.40 x10E12/L 07/04/2019 8:03 AM CDT [facility] Hemoglobin 12.4 12.0 - 17.6 gm/dL 07/04/2019 8:03 AM CDT [facility] Hematocrit 38.1 35.2 - 51.7 % 07/04/2019 8:03 AM CDT [facility] MCV 85.6 80.7 - 98.3 fl 07/04/2019 8:03 AM CDT [facility] MCH 27.9 26.7 - 34.0 pg 07/04/2019 8:03 AM CDT [facility] MCHC 32.5 30.8 - 35.9 gm/dL 07/04/2019 8:03 AM CDT [facility] Platelet Count 303 153 - 416 x10E9/L 07/04/2019 8:03 AM CDT [facility] RDW-CV 13.1 12.1 - 14.9 % 07/04/2019 8:03 AM CDT [facility] MPV 10.7 9.4 - 12.9 fl 07/04/2019 8:03 AM CDT [facility] Neutrophils % 62.5 44.0 - 73.0 % 07/04/2019 8:03 AM T [facility] Lymphocytes % 24.5 20.0 - 43.0 % 07/04/2019 8:03 AM CDT [facility] Monocytes % 8.6 5.0 - 13.0 % 07/04/2019 8:03 AM CDT [facility] Eosinophils % 3.2 0.0 - 6.0 % 07/04/2019 8:03 AM CDT [facility] Basophils % 0.4 0.0 - 2.0 % 07/04/2019 8:03 AM CDT [facility] Immature Granulocytes 0.8 0 - 1 % 07/04/2019 8:03 AM CDT [facility] Neutrophil Absolute 4.44 2.01 - 7.14 x10E9/L 07/04/2019 8:03 AM CDT [facility] Lymphocytes Absolute 1.74 1.07 - 3.94 x10E9/L 07/04/2019 8:03 AM CDT [facility] Monocytes Absolute 0.61 0.26 - 1.07 x10E9/L 07/04/2019 8:03 AM CDT [facility] Eosinophils Absolute 0.23 0 - 0.47 x10E9/L 07/04/2019 8:03 AM CDT [facility] Basophils Absolute 0.03 0 - 0.08 x10E9/L 07/04/2019 8:03 AM CDT [facility] Immature Granulocytes Absolute 0.06 0.00 - 0.06 x10E9/L 07/04/2019 8:03 AM CDT [facility] nRBC Auto 0 /100 WBC 07/04/2019 8:03 AM CDT [facility] Blood BLOOD SPECIMEN / Unknown 07/04/2019 5:35 AM CDT 07/04/2019 6:32 AM CDT Toma Mcfarlane WASHER ASSEMBLER-INDUSTRIAL ECOLOGY TECHNICIAN LAB - HEMATOLOGY ORDERABLES Performing Organization Address [facility] Co de Phone Number [facility] [address] [place], [place] [phone] * URINE MICROSCOPIC ONLY REFLEX TO CULTURE (06/22/2019 7:59 PM CDT) Only the most recent of4 resultswithin the time period is included. Reflex Status Culture not indicated 06/23/2019 6:50 AM CDT [facility] RBC UA 0-2 None Seen, 0-2, 3-5 # /hpf 06/23/2019 6:50 AM CDT [facility] WBC UA 0-5 None Seen, 0-5 # /hpf 06/23/2019 6:50 AM CDT [facility] Bacteria UA None Seen None Seen 06/23/2019 6:50 AM CDT [facility] Squamous Epithelial Cells None Seen None Seen, 0-2, 3-5 /hpf 06/23/2019 6:50 AM CDT [facility] Urine URINE SPECIMEN COLLECTION, CATHETERIZED / Unknown 06/22/2019 7:59 PM CDT 06/23/2019 6:43 AM CDT Narrative [facility] - 06/23/2019 6:50 AM CDT Chris Sousa MD LAB - URINALYSIS ORD ERABLES Performing Organization Address City/[facility]/ZIP Co de Phone Number [facility] [address] [place] [address] * (ABNORMAL) URINALYSIS REFLEX MICROSCOPIC REFLEX CULTURE (06/22/2019 7:59 PM CDT) Only the most recent of5 resultswithin the time period is included. Color UA Straw Straw, Yellow 06/23/2019 6:49 AM CDT [facility] Clarity UA Clear Clear 06/23/2019 6:49 AM CDT [facility] Glucose UA Negative Negative 06/23/2019 6:49 AM CDT [facility] Bilirubin UA Negative Negative 06/23/2019 6:49 AM CDT [facility] Ketone UA Negative Negative 06/23/2019 6:49 AM CDT [facility] Specific Ina UA 1.008 1.005 - 1.030 06/23/2019 6:49 AM CDT [facility] Blood UA 1+(A) Negative 06/23/2019 6:49 AM CDT [facility] pH UA 6.0 5.0 - 8.0 pH 06/23/2019 6:49 AM CDT [facility] Protein UA Negative Negative 06/23/2019 6:49 AM CDT [facility] Urobilinogen UA Negative Negative mg/dL 06/23/2019 6:49 AM CDT [facility] Nitrite UA Negative Negative 06/23/2019 6:49 AM CDT [facility] Leukocyte UA Negative Negative 06/23/2019 6:49 AM CDT [facility] Urine Microscopy Urine microscopy to follow 06/23/2019 6:49 AM CDT [facility] Reflex Status Culture not indicated 06/23/2019 6:49 AM CDT [facility] Urine URINE SPECIMEN COLLECTION, CATHETERIZED / Unknown 06/22/2019 7:59 PM CDT 06/23/2019 6:43 AM CDT Narrative [facility] - 06/23/2019 6:49 AM CDT Chris Sousa MD LAB - URINALYSIS ORD ERABLES [facility] [address] [place] [address] * XR ABDOMEN KUB (06/17/2019 7:40 AM CDT) Anatomical Region Laterality Modality Abdomen Radiographic Radha ging 06/17/2019 10:0 8 AM CDT Narrative 06/17/2019 10:09 AM CDT Abdomen AP Indication: Constipation Findings: ??No dilated loops of bowel are identified to suggest obstruction. A moderate volume of stool is present. Santo catheter is seen over the bladder. No free air on this supine film. *Reading Radiologist: Petra Emery on 06/17/2019 at 10:09 AM Procedure Note Petra Emery MD - 06/17/2019 Abdomen AP Indication: Constipation Findings: No dilated loops of bowel are identified to suggest obstruction. A moderate volume of stool is present. Santo catheter is seen over the bladder. No free air on this supine film. *Reading Radiologist: Petra Emery on 06/17/2019 at 10:09 AM Toya Stearns MD DIAGNOSTIC IMAGING O RDERABLES * STREP A SCREEN DIRECT W RFLX STREP A CULTURE (06/16/2019 5:18 PM CDT) Strep A Rapid Negative Negative 06/16/2019 6:21 PM CDT [facility] Microbiology ENTIRE THROAT (SURFACE REGION OF NECK) / Unknown Collection / Unknown 06/16/2019 5:18 PM CDT 06/16/2019 6:10 PM CDT Narrative [facility] - 06/16/2019 6:21 PM CDT Test has reflexed to a Strep A culture. Toma Mcfarlane [facility] LAB - MICROBIOLOG Y ORDERABLES Performing Organization Address City/[facility]/ZIP Co de Phone Number [facility] [address] [place] [address] * CULTURE STREP GROUP A (06/16/2019 5:18 PM CDT) Culture Negative for beta-hemolytic Streptococcus Group A JHOANA 06/18/2019 10:36 AM CDT [facility] Microbiology ENTIRE THROAT (SURFACE REGION OF NECK) / Unknown Collection / Unknown 06/16/2019 5:18 PM CDT 06/16/2019 6:10 PM CDT Toma Mcfarlane APRN-[facility] LAB - MICROBIOLOG Y ORDERABLES [facility] [address] [place] [address], [facility] [phone] * CARDIAC EKG ORDER (06/13/2019 5:41 PM CDT) Narrative 06/13/2019 5:41 PM CDT Ordered by an unspecified provider. Scanned Document CARDIAC SERVICES ORD ERABLES * PROCALCITONIN LEVEL (06/09/2019 4:29 AM CDT) Only the most recent of2 resultswithin the time period is included. Procalcitonin 0.05 <0.10 ng/mL 06/09/2019 5:34 AM CDT [facility] Blood BLOOD SPECIMEN / Unknown Lab Venipuncture / Unknown 06/09/2019 4:29 AM CDT 06/09/2019 4:50 AM CDT Narrative [facility] - 06/09/2019 5:34 AM CDT The change in procalcitonin (PCT) concentration [...] Change in Procalcitonin Calculator is available at [email or web address] ?? If clinical picture has not improved and PCT remains high, reevaluate and consider treatment failure or other causes. Mayco Tejeda III, MD LAB - CHEM ISTRY ORDERABLES [facility] [address] [place] [address] * (ABNORMAL) ERYTHROCYTE SEDIMENTATION RATE (06/09/2019 4:29 AM CDT) Erythrocyte Sedimentation Rate Automated 26(H) 0 - 20 MM/HR 06/09/2019 6:12 AM CDT [facility] Blood BLOOD SPECIMEN / Unknown Lab Venipuncture / Unknown 06/09/2019 4:29 AM CDT 06/09/2019 4:50 AM CDT Mayco Tejeda III, MD LAB - YESENIA TOLOGY ORDERABLES Performing Organization Address City/[facility]/ZIP Co de Phone Number [facility] [address] [address] * XR CHEST PA AND LATERAL (06/08/2019 1:25 PM CDT) Anatomical Region Laterality Modality Chest Radiographic Radha ging 06/08/2019 1:29 PM CDT Narrative 06/08/2019 1:30 PM CDT Chest Two Views History: Pneumonia, unspecified organism. COMPARISON: June 06, 2019. FINDINGS: There is persistent patchy infiltrate in the left lower lobe with obscuration left hemidiaphragm. A small left pleural effusion is likely. The right lung remains clear. No pneumothorax seen. *Reading Radiologist: Esperanza Berry on 06/08/2019 at 1:30 PM Procedure Note Esperanza Berry MD - 06/08/2019 Chest Two Views History: Pneumonia, unspecified organism. COMPARISON: June 06, 2019. FINDINGS: There is persistent patchy infiltrate in the left lower lobe with obscuration left hemidiaphragm. A small left pleural effusion is likely. The right lung remains clear. No pneumothorax seen. *Reading Radiologist: Esperanza Berry on 06/08/2019 at 1:30 PM Mayco Tejeda III, MD DIAGNOSTIC IMAGING ORDERABLES * MAGNESIUM BLOOD (06/08/2019 4:49 AM CDT) Only the most recent of7 resultswithin the time period is included. Magnesium 2.3 1.6 - 2.6 mg/dL 06/08/2019 8:55 AM CDT [facility] Blood BLOOD SPECIMEN / Unknown Lab Venipuncture / Unknown 06/08/2019 4:49 AM CDT 06/08/2019 4:56 AM CDT Mayco Tejeda III, MD LAB - CHEM ISTRY ORDERABLES Performing Organization Address [facility] Co de Phone Number [facility] [address] [place] [address] * VANCOMYCIN LEVEL RANDOM (06/08/2019 4:49 AM CDT) Pathologist [facility] Vancomycin Random 6.9 ug/mL 06/08/2019 5:28 AM CDT [facility] Blood BLOOD SPECIMEN / Unknown Lab Venipuncture / Unknown 06/08/2019 4:49 AM CDT 06/08/2019 4:56 AM CDT Narrative [facility] - 06/08/2019 5:28 AM CDT No reference range available for random Vancomycin levels. All results interpreted by ordering physician. Callie Estrada MD LAB - CHEMISTRY ALEXIS DEVRISE Performing Organization Address [facility] Co de Phone Number [facility] [address] [place] [address] * TROPONIN I (06/06/2019 8:34 PM CDT) Only the most recent of2 resultswithin the time period is included. Pathologist [facility] Troponin I <0.010 <0.038 ng/mL 06/06/2019 9:01 PM CDT [facility] Blood BLOOD SPECIMEN / Unknown Venipuncture / Unknown 06/06/2019 8:34 PM CDT 06/06/2019 8:37 PM CDT Patsy Tuttle MD LAB - CHEMISTRY ALEXIS DEVRIES Performing Organization Address City/[facility]/ZIP Co de Phone Number [facility] [address] [place], [place] [phone] * SODIUM URINE RANDOM (06/06/2019 5:48 PM CDT) Sodium Urine 38 mmol/L 06/06/2019 6:15 PM CDT [facility] Urine URINE SPECIMEN OBTAINED BY CLEAN CATCH PROCEDURE / Unknown Collection / Unknown 06/06/2019 5:48 PM CDT 06/06/2019 5:48 PM CDT Chris Sousa MD LAB - URINE CHEMISTR Y ORDERABLES Performing Organization Address [facility] Co de Phone Number [facility] [address] [place] [phone] * POTASSIUM URINE RANDOM (06/06/2019 5:48 PM CDT) Potassium Urine 32.0 mmol/L 06/06/2019 6:15 PM CDT [facility] Urine URINE SPECIMEN OBTAINED BY CLEAN CATCH PROCEDURE / Unknown Collection / Unknown 06/06/2019 5:48 PM CDT 06/06/2019 5:48 PM CDT Chris Sousa MD LAB - URINE CHEMISTR Y ORDERABLES Performing Organization Address [facility] de Phone Number [facility] [address] [place] [phone] * (ABNORMAL) OSMOLALITY BLOOD (06/06/2019 5:48 PM CDT) Osmolality 267(L) 280 - 300 mOsm/kg 06/06/2019 6:08 PM CDT [facility] Blood BLOOD SPECIMEN / Unknown Venipuncture / Unknown 06/06/2019 5:48 PM CDT 06/06/2019 5:48 PM CDT Chris Sousa MD LAB - CHEMISTRY ORDBlanca DEVRIES Performing Organization Address [facility] Co de Phone Number [facility] [address] [place] [address] * CHLORIDE URINE RANDOM (06/06/2019 5:48 PM CDT) Chloride Urine 50.0 mmol/L 06/06/2019 6:14 PM CDT [facility] Urine URINE SPECIMEN OBTAINED BY CLEAN CATCH PROCEDURE / Unknown Collection / Unknown 06/06/2019 5:48 PM CDT 06/06/2019 5:48 PM CDT Chris Sousa MD LAB - URINE CHEMISTR Y ORDERABLES [facility] [address] [place] [address] * XR CHEST 1VW PORTABLE (06/06/2019 5:05 PM CDT) Only the most recent of4 resultswithin the time period is included. Anatomical Region Laterality Modality Chest Radiographic Radha [...] * CULTURE BLOOD (06/06/2019 4:49 PM CDT) Only the most recent of4 resultswithin the time period is included. Culture No growth day 5 JHOANA 06/11/2019 9:00 PM CDT [facility] Blood PERIPHERAL BLOOD / Unknown Venipuncture / Unknown 06/06/2019 4:49 PM CDT 06/06/2019 5:04 PM CDT Patsy Tuttle MD LAB - MICROBIOLOGY O RDSMITH [facility] [address] [place], [place] [address], [facility] [phone] * (ABNORMAL) INTERLEUKIN-6 (06/06/2019 4:48 PM CDT) IL-6 17.9(H) 0.0 - 15.5 pg/mL 06/09/2019 3:07 PM CDT [facility] ([facility]) Comment: Results for this test are for research purposes only by the assay's health and wellness coordinator. ??The performance characteristics of this product have not been established. ??Results should not be used as a diagnostic procedure without confirmation of the diagnosis by another medically established diagnostic product or procedure. Blood BLOOD SPECIMEN / Unknown Venipuncture / Unknown 06/06/2019 4:48 PM CDT 06/06/2019 5:01 PM CDT Narrative [facility] ([facility]) - 06/09/2019 3:07 PM CDT Performed at: ??01 - [facility] [address] ??[id number] News Content Specialist: Rocío Allison MD, Phone: ??[phone] Patsy Tuttle MD LAB - CHEMISTRY ALEXIS DEVRIES Performing Organization Address City/[facility]/ZIP Co de Phone Number [facility] ([facility]) [address] [place] [phone] * (ABNORMAL) C-REACTIVE PROTEIN (06/06/2019 4:48 PM CDT) C-Reactive Protein 7.90(H) <=0.50 mg/dL 06/06/2019 5:20 PM CDT [facility] Blood BLOOD SPECIMEN / Unknown Venipuncture / Unknown 06/06/2019 4:48 PM CDT 06/06/2019 5:01 PM CDT Patsy Tuttle MD LAB - CHEMISTRY ALEXIS DEVRIES [facility] [address] [place] [address] * PTT (06/06/2019 4:48 PM CDT) PTT 38.1 23.0 - 38.4 sec 06/06/2019 5:21 PM CDT [facility] Blood BLOOD SPECIMEN / Unknown Venipuncture / Unknown 06/06/2019 4:48 PM CDT 06/06/2019 5:01 PM CDT Narrative [facility] - 06/06/2019 5:21 PM CDT Heparin Therapeutic Range for PTT: ??71.0 - 109.0 seconds. Patsy Tuttle MD LAB - COAGULATION OR DERABLES Performing Organization Address [facility] de Phone Number [facility] [address] [place] [phone] * (ABNORMAL) PT-INR (06/06/2019 4:48 PM CDT) Pathologist [facility] PT 14.6 12.1 - 14.8 sec 06/06/2019 5:20 PM CDT [facility] INR 1.2(H) 0.9 - 1.1 06/06/2019 5:20 PM CDT [facility] Blood BLOOD SPECIMEN / Unknown Venipuncture / Unknown 06/06/2019 4:48 PM CDT 06/06/2019 5:01 PM CDT Narrative [facility] - 06/06/2019 5:20 PM CDT Conventional Warfarin Anticoagulant Therapy: INR Reference Range: ??2.0-3.0 Intensive Warfarin Anticoagulant Therapy: INR Reference Range: ? 2.5-3.5 Patsy Tuttle MD LAB - COAGULATION OR DERABLES Performing Organization Address [facility] Co de Phone Number [facility] [address] [place] [phone] * B-TYPE NATRIURETIC PEPTIDE (06/06/2019 4:48 PM CDT) Pathologist [facility] BNP 23 <=100 pg/mL 06/06/2019 5:27 PM CDT [facility] Blood BLOOD SPECIMEN / Unknown Venipuncture / Unknown 06/06/2019 4:48 PM CDT 06/06/2019 5:01 PM CDT Patsy Tuttle MD LAB - CHEMISTRY ALEXIS DEVRIES [facility] [address] [place] [address] * (ABNORMAL) COMPREHENSIVE METABOLIC PANEL (06/06/2019 4:48 PM CDT) Only the most recent of2 resultswithin the time period is included. Glucose 103 70 - 105 mg/dL 06/06/2019 5:20 PM CDT [facility] Sodium 126(L) 136 - 145 mmol/L 06/06/2019 5:20 PM CDT [facility] Potassium 2.7(L) 3.5 - 5.1 mmol/L 06/06/2019 5:20 PM CDT [facility] Chloride 92(L) 98 - 107 mmol/L 06/06/2019 5:20 PM CDT [facility] CO2 23 23 - 31 mmol/L 06/06/2019 5:20 PM CDT [facility] Calcium 7.8(L) 8.4 - 10.4 mg/dL 06/06/2019 5:20 PM CDT [facility] Anion Gap 11 8 - 16 mmol/L 06/06/2019 5:20 PM CDT [facility] BUN 14 8.4 - 25.7 mg/dL 06/06/2019 5:20 PM CDT [facility] Creatinine 0.69(L) 0.72 - 1.25 mg/dL 06/06/2019 5:20 PM CDT [facility] Alkaline Phosphatase 107 40 - 150 U/L 06/06/2019 5:20 PM CDT [facility] ALT 47 0 - 61 U/L 06/06/2019 5:20 PM CDT [facility] AST 46(H) 5 - 34 U/L 06/06/2019 5:20 PM CDT [facility] Protein Total 6.0(L) 6.4 - 8.3 gm/dL 06/06/2019 5:20 PM CDT [facility] Albumin 3.2(L) 3.5 - 5.2 gm/dL 06/06/2019 5:20 PM CDT [facility] Bilirubin Total 0.4 0.2 - 1.2 mg/dL 06/06/2019 5:20 PM CDT [facility] eGFR by MDRD >60 >60 mL/min/1.7 3m2 06/06/2019 5:20 PM CDT [facility] eGFR by MDRD >60 >60 mL/min/1.7 3m2 06/06/2019 5:20 PM CDT [facility] Blood BLOOD SPECIMEN / Unknown Venipuncture / Unknown 06/06/2019 4:48 PM CDT 06/06/2019 5:01 PM CDT Patsy Tuttle MD LAB - CHEMISTRY ALEXIS DEVRIES Performing Organization Address City/[facility]/ZIP Co de Phone Number [facility] [id number] [place] [phone] * (ABNORMAL) LDH BLOOD (06/06/2019 4:48 PM CDT) LDH 232(H) 125 - 220 U/L 06/06/2019 5:20 PM CDT [facility] Blood BLOOD SPECIMEN / Unknown Venipuncture / Unknown 06/06/2019 4:48 PM CDT 06/06/2019 5:01 PM CDT Patsy Tuttle MD LAB - CHEMISTRY ALEXIS DEVRIES Performing Organization Address [facility]/ZIP Co de Phone Number [facility] [phone] [place] [phone] * (ABNORMAL) LACTIC ACID BLOOD (06/06/2019 4:48 PM CDT) Only the most recent of2 resultswithin the time period is included. Lactic Acid 0.48(L) 0.5 - 2.2 mmol/L 06/06/2019 5:17 PM CDT [facility] Blood BLOOD SPECIMEN / Unknown Venipuncture / Unknown 06/06/2019 4:48 PM CDT 06/06/2019 5:04 PM CDT Patsy Tuttle MD LAB - CHEMISTRY ALEXIS DEVRIES Performing Organization Address [facility] Co de Phone Number [facility] [address] [place] [address] * CK BLOOD (06/06/2019 4:48 PM CDT) CK 74 30 - 200 U/L 06/06/2019 5:20 PM CDT [facility] Blood BLOOD SPECIMEN / Unknown Venipuncture / Unknown 06/06/2019 4:48 PM CDT 06/06/2019 5:01 PM CDT Patsy Tuttle MD LAB - CHEMISTRY AELXIS DEVRIES Performing Organization Address [facility] Co de Phone Number [facility] [address] [place] [address] * FERRITIN (06/06/2019 4:48 PM CDT) Only the most recent of2 resultswithin the time period is included. Pathologist [facility] Ferritin 258 22 - 275 ng/mL 06/06/2019 5:42 PM CDT [facility] Blood BLOOD SPECIMEN / Unknown Venipuncture / Unknown 06/06/2019 4:48 PM CDT 06/06/2019 5:01 PM CDT Patsy Tuttle MD LAB - CHEMISTRY ALEXIS DEVRIES Performing Organization Address [facility] Co de Phone Number [facility] [phone] [place] [phone] * EKG 12-LEAD (06/06/2019 4:27 PM CDT) Ventricular Rate 67 BPM [facility] Atrial Rate 67 BPM [facility] P-R Interval 156 ms [facility] QRS Duration ms 86 ms [facility] Q-T Interval ms 462 ms [facility] QTC Calculation (Bezet) 488 ms [facility] Calculated P [place] 35 degrees [facility] Calculated R [place] 23 degrees [facility] Calculated T [place] -5 degrees [facility] Interpretation EKG Normal sinus rhythm ST & T wave abnormality, consider inferior ischemia Abnormal ECG No previous ECGs available Confirmed by Jamee, Salman ([id number]) on 06/07/2019 12:44:36 PM DP MUSE 06/06/2019 4:27 PM CDT 06/07/2019 12:44 PM CDT Patsy Tuttle MD ECG ORDERABLES Performing Organization Address [facility] Co de Phone Number [facility] * SARS-COV-2 (COVID-19) IN HOUSE (06/06/2019 1:01 PM CDT) COVID-19 PCR Not detected Not detected, Invalid 06/07/2019 6:09 AM CDT [facility] Microbiology SPECIMEN FROM NASOPHARYNGEAL STRUCTURE / Unknown 06/06/2019 1:01 PM CDT 06/06/2019 1:01 PM CDT Narrative [facility] - 06/07/2019 6:09 AM CDT This Real Time RT-PCR assay was developed and its performance characteristics determined by [facility]. This test has been authorized by the Food and Drug administration (FDA)under an Emergency Use Authorization (EUA). This test has been validated in accordance with the FDA's guidance document Policy for Diagnostic Testing in Laboratories Certified to perform High Complexity Testing under CLIA prior to Emergency Use Authorization for Coronavirus Disease-2019 during the Public Health Emergency issued on April 16, 2019. FDA independent review of this validation is pending. This test is only authorized for the duration of time the declaration that circumstances exist justifying the authorization of emergency use of in vitro diagnostic tests for detection of SARS-CoV-2 virus and/or diagnosis of COVID-19 infection under section 564(b)(1) of the Act, 21 U.S.C 360bbb-3 (b)(1), unless the authorization is terminated or revoked sooner. Chris Sousa MD LAB - MICROBIOLOGY O RDERABLES Performing Organization Address City/[facility]/ZIP Co de Phone Number [facility] [address] [place] [address], [facility] [phone] * RESPIRATORY PATHOGEN PANEL BY PCR (06/06/2019 1:01 PM CDT) Adenovirus PCR Not detected Not detected, Invalid, Indeterminate 06/06/2019 8:32 PM CDT [facility] Coronavirus PCR Not detected Not detected, Invalid, Indeterminate 06/06/2019 8:32 PM CDT [facility] Human Metapneumovirus PCR Not detected Not detected, Invalid, Indeterminate 06/06/2019 8:32 PM CDT [facility] Human Rhinovirus/Entero virus PCR Not detected Not detected, Invalid, Indeterminate 06/06/2019 8:32 PM CDT [facility] Influenza A PCR Not detected Not detected, Equivocal, Invalid, Indeterminate 06/06/2019 8:32 PM CDT [facility] Influenza B PCR Not detected Not detected, Invalid, Indeterminate 06/06/2019 8:32 PM CDT [facility] Parainfluenza Virus 1 PCR Not detected Not detected, Invalid, Indeterminate 06/06/2019 8:32 PM CDT [facility] Parainfluenza Virus 2 PCR Not detected Not detected, Invalid, Indeterminate 06/06/2019 8:32 PM [facility] Parainfluenza Virus 3 PCR Not detected Not detected, Invalid, Indeterminate 06/06/2019 8:32 PM CDT [facility] Parainfluenza Virus 4 PCR Not detected Not detected, Invalid, Indeterminate 06/06/2019 8:32 PM T [facility] Respiratory Syncytial Virus PCR Not detected Not detected, Invalid, Indeterminate 06/06/2019 8:32 PM T [facility] Bordetella pertussis PCR Not detected Not detected, Invalid 06/06/2019 8:32 PM T [facility] Chlamydia pneumoniae PCR Not detected Not detected, Invalid, Indeterminate 06/06/2019 8:32 PM T [facility] Mycoplasma pneumoniae PCR Not detected Not detected, Invalid, Indeterminate 06/06/2019 8:32 PM T [facility] Microbiology SPECIMEN FROM NASOPHARYNGEAL STRUCTURE / Unknown 06/06/2019 1:01 PM CDT 06/06/2019 1:01 PM CDT [facility] - 06/06/2019 8:32 PM CDT This test is able to detect the following human coronaviruses: HKU1, NL63, 229E, and OC43. It will NOT detect 2019 Novel Coronavirus (2019-nCoV). If 2019-nCoV is suspected contact Infection Prevention for isolation and testing guidance. Chris Sousa MD LAB - MICROBIOLOGY O RDERABLES Performing Organization Address [facility] Co de Phone Number [facility] [address] [place] [address], [facility] [phone] * CULTURE STOOL+ E COLI SHIGA-LIKE TOXIN (06/06/2019 10:01 AM CDT) Culture No growth Salmonella, Shigella, Campylobacter, Escherichia coli O157:h7 or Yersinia JHOANA 06/08/2019 8:58 AM CDT [facility] Culture Negative Escherichia coli Shiga-like toxin (NM) JHOANA 06/08/2019 8:58 AM CDT [facility] Culture No normal enteric gram-negative bacilli isolated JHOANA 06/08/2019 8:58 AM CDT [facility] Stool STOOL SPECIMEN / Unknown 06/06/2019 10:01 AM CDT 06/06/2019 11:19 AM CDT Catalina Patricia APRN-INDUSTRIAL ECOLOGY TECHNICIAN LAB - MICROBIOLOG Y ORDERABLES Performing Organization Address [facility] de Phone Number [facility]CROBI[facility] [address] [place] [address], [facility] [phone] * C DIFFICILE GDH AG + TOXIN A+B (06/06/2019 10:01 AM CDT) GDH Antigen Negative Negative, Invalid 06/06/2019 8:49 PM CDT [facility]CRO[facility] C difficile Toxin A + B Negative Negative, Invalid 06/06/2019 8:49 PM CDT [facility]CRO[facility] Interpretation C difficile Negative for toxigenic C. difficile Negative for toxigenic C. difficile 06/06/2019 8:49 PM CDT [facility]CRO[facility] Stool STOOL SPECIMEN / Unknown 06/06/2019 10:01 AM CDT 06/06/2019 11:19 AM CDT Catalina Patricia WASHER ASSEMBLER-INDUSTRIAL ECOLOGY TECHNICIAN LAB - MICROBIOLOG Y ORDERABLES Performing Organization Address [facility] Co de Phone Number [facility]CRO[facility] [address] [place] [address], [facility] [phone] * (ABNORMAL) IRON + TRANSFERRIN PANEL (06/01/2019 3:59 AM CDT) Iron 37(L) 65 - 175 ug/dL 06/01/2019 10:27 PM CDT [facility] Transferrin 162(L) 174 - 364 mg/dL 06/01/2019 10:27 PM CDT [facility] TIBC Calculated 203(L) 240 - 450 ug/ml 06/01/2019 10:27 PM CDT [facility] Iron Saturation % 18(L) 20 - 50 % 06/01/2019 10:27 PM CDT [facility] Blood BLOOD SPECIMEN / Unknown Venipuncture / Unknown 06/01/2019 3:59 AM CDT 06/01/2019 10:14 PM CDT Chris Sousa MD LAB - CHEMISTRY ALEXIS DEVRIES Performing Organization Address [facility] Co de Phone Number [facility] [address] [phone] * PHOSPHORUS BLOOD (05/30/2019 11:48 PM CDT) Only the most recent of6 resultswithin the time period is included. Pathologist [facility] Phosphorus 3.5 2.3 - 4.7 mg/dL 05/31/2019 12:23 AM CDT [facility] Blood BLOOD SPECIMEN / Unknown Lab Venipuncture / Unknown 05/30/2019 11:48 PM CDT 05/30/2019 11:57 PM CDT Sangeetha Berman MD LAB - CHEMISTRY ALEXIS DEVRIES Performing Organization Address [facility] Co de Phone Number [facility] [address] [place] [address], [facility] [phone] * (ABNORMAL) URINALYSIS REFLEX TO MICROSCOPIC NO CULTURE (05/29/2019 11:29 AM CDT) Only the most recent of2 resultswithin the time period is included. Pathologist [facility] Color UA Yellow Straw, Yellow, Colorless 05/29/2019 11:55 AM [facility] Clarity UA Clear Clear, t Cloudy 05/29/2019 11:55 AM [facility] Specific Ina UA 1.019 1.005 - 1.030 05/29/2019 11:55 AM [facility] pH UA 6.0 5.0 - 8.0 pH 05/29/2019 11:55 AM [facility] Protein UA Negative Negative mg/dL 05/29/2019 11:55 AM [facility] Glucose UA Negative Negative mg/dL 05/29/2019 11:55 AM [facility] Ketone UA Trace(A) Negative mg/dL 05/29/2019 11:55 AM [facility] Bilirubin UA Negative Negative mg/dL 05/29/2019 11:55 AM [facility] Blood UA 2+(A) Negative 05/29/2019 11:55 AM [facility] Nitrite UA Negative Negative 05/29/2019 11:55 AM [facility] Leukocyte Esterase Negative Negative 05/29/2019 11:55 AM [facility] Urobilinogen UA 4.0(A) Negative mg/dL 05/29/2019 11:55 AM [facility] RBC UA 6-10(A) None Seen, 0-2, 3-5 /HPF 05/29/2019 11:55 AM [facility] WBC UA 0-5 None Seen, 0-5 /HPF 05/29/2019 11:55 AM [facility] Squamous Epithelial Cells UA None Seen None Seen, 0-2 /HPF 05/29/2019 11:55 AM [facility] Mucus UA 1+ None, 1+ /LPF 05/29/2019 11:55 AM [facility] Urine URINE SPECIMEN OBTAINED BY SINGLE CATHETERIZATION OF URINARY BLADDER / Unknown Collection / Unknown 05/29/2019 11:29 AM CDT 05/29/2019 11:45 AM [facility] - 05/29/2019 11:55 AM [facility] [place]NOTE 2[place] Joseph Sarabia DO LAB - URINALYSIS ORD ERABLES [address] [place] [address], [facility] [phone] * XR CHEST 1VW (05/28/2019 4:49 AM CDT) Only the most recent of2 resultswithin the time period is included. Anatomical Region Laterality Modality Chest Radiographic Radha ging 05/28/2019 9:03 AM CDT Impressions 05/28/2019 2:43 PM CDT FINDINGS/IMPRESSION: Persistent left hemidiaphragmatic elevation with airspace opacity/atelectasis in the left lower lobe. ??A small associated left pleural effusion cannot be excluded. There is no focal consolidation, right pleural effusion, or pneumothorax. The cardiomediastinal silhouette is normal. Dictated by Easton Lam MD (residential coordinator). Dr. Rico Barnes M.D. have personally reviewed and interpreted this examination/study. This report was electronically signed by Rico KLINE M.D. ??on 05/28/2019 2:43 PM . Narrative 05/28/2019 2:43 PM CDT EXAMINATION: XR CHEST 1VW HISTORY: J98.4: Posttraumatic respiratory insufficiency COMPARISON: 05/27/2019 Procedure Note Chantel Kline MD - 05/28/2019 EXAMINATION: XR CHEST 1VW HISTORY: J98.4: Posttraumatic respiratory insufficiency COMPARISON: 05/27/2019 FINDINGS/IMPRESSION: Persistent left hemidiaphragmatic elevation with airspace opacity/atelectasis in the left lower lobe. A small associated left pleural effusion cannot be excluded. There is no focal consolidation, right pleural effusion, orpneumothorax. The cardiomediastinal silhouette is normal. Dictated by Easton Lam MD (residential coordinator). Dr. Rico Barnes M.D. have personally reviewed and interpretedthis examination/study. This report was electronically signed by Rico KLINE M.D. on 05/28/2019 2:43 PM . Sangeetha Berman MD DIAGNOSTIC IMAGING O

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
--- OUTSIDE RECORDS SUMMARY | 2024-02-27 10:40 | XMS_ITS | Encounter Summary ---
Author Organization [facility] Health Address [address] [place] [address] Care Team Providers Care Passenger Locomotive Engineer Name Role Phone Ilan Pearson MD Primary Care Provider [phone] Encounter Details Date Type Department Care Team (Latest Contact Info) Description 06/09/2019 4:28 PM CDT - 07/08/2019 2:10 PM CDT Hospital Encounter [facility] [address] [place], [place] [id number] [place] [address] [address] Lucas Wheat MD [address] [place] [address] [facility] Discharge Disposition: Home or Self Care Social [...] capsule by mouth once daily 06/01/2019 09/22/2019 montelukast (SINGULAIR) 10 MG tablet Take [...] Procedure Name Priority Date/Time Associated Diagnosis Comments CBC W/O DIFFERENTIAL Routine 07/07/2019 4:59 AM CDT BASIC METABOLIC PANEL (CALCIUM TOTAL) Routine 07/07/2019 4:59 AM CDT CBC W AUTO DIFFERENTIAL Routine 07/04/2019 5:35 AM CDT BASIC METABOLIC PANEL (CALCIUM TOTAL) Routine 07/04/2019 5:35 AM CDT CBC W AUTO DIFFERENTIAL Routine 06/30/2019 4:00 AM CDT BASIC METABOLIC PANEL (CALCIUM TOTAL) Routine 06/30/2019 4:00 AM CDT CBC W AUTO DIFFERENTIAL Routine 06/27/2019 4:00 AM CDT BASIC METABOLIC PANEL (CALCIUM TOTAL) Routine 06/27/2019 4:00 AM CDT CBC W AUTO DIFFERENTIAL Routine 06/23/2019 5:00 AM CDT BASIC METABOLIC PANEL (CALCIUM TOTAL) Routine 06/23/2019 5:00 AM CDT URINE MICROSCOPIC ONLY REFLEX TO CULTURE Routine 06/22/2019 7:59 PM CDT URINALYSIS REFLEX MICROSCOPIC REFLEX CULTURE Routine 06/22/2019 7:59 PM CDT CBC W AUTO DIFFERENTIAL Routine 06/20/2019 3:59 AM CDT BASIC METABOLIC PANEL (CALCIUM TOTAL) Routine 06/20/2019 3:59 AM CDT XR ABDOMEN KUB Routine 06/17/2019 7:40 AM CDT STREP A SCREEN DIRECT W RFLX STREP A CULTURE Routine 06/16/2019 5:18 PM CDT CULTURE STREP GROUP A Routine 06/16/2019 5:18 PM CDT CBC W AUTO DIFFERENTIAL Routine 06/16/2019 5:10 AM CDT BASIC METABOLIC PANEL (CALCIUM TOTAL) Routine 06/16/2019 5:10 AM CDT CBC W AUTO DIFFERENTIAL Routine 06/13/2019 4:40 AM CDT BASIC METABOLIC PANEL (CALCIUM TOTAL) Routine 06/13/2019 4:40 AM CDT CBC W AUTO DIFFERENTIAL Routine 06/10/2019 4:35 AM CDT BASIC METABOLIC PANEL (CALCIUM TOTAL) Routine 06/10/2019 4:35 AM CDT documented in this encounter Results * (ABNORMAL) BASIC METABOLIC PANEL (CALCIUM TOTAL) (07/07/2019 4:59 AM CDT) Glucose 84 70 - 105 mg/dL 07/07/2019 7:59 AM CDT [facility] Sodium 138 136 - 145 mmol/L 07/07/2019 7:59 AM CDT [facility] Potassium 4.0 3.5 - 5.1 mmol/L 07/07/2019 7:59 AM CDT [facility] Chloride 102 98 - 107 mmol/L 07/07/2019 7:59 AM CDT [facility] CO2 24 23 - 31 mmol/L 07/07/2019 7:59 AM CDT [facility] Calcium 9.0 8.4 - 10.4 mg/dL 07/07/2019 7:59 AM CDT [facility] Anion Gap 12 8 - 16 mmol/L 07/07/2019 7:59 AM CDT [facility] BUN 10 8.4 - 25.7 mg/dL 07/07/2019 7:59 AM CDT [facility] Creatinine 0.60(L) 0.72 - 1.25 mg/dL 07/07/2019 7:59 AM CDT [facility] eGFR by MDRD >60 >60 mL/min/1.7 3m2 07/07/2019 7:59 AM CDT [facility] eGFR by MDRD >60 >60 mL/min/1.7 3m2 07/07/2019 7:59 AM CDT [facility] Blood BLOOD SPECIMEN / Unknown 07/07/2019 4:59 AM CDT 07/07/2019 6:56 AM CDT Catalina Patricia ROUNDHOUSE SUPERVISOR-TRAINING AND DEVELOPMENT OFFICER LAB - CHEMISTRY O RDERABLES Performing Organization Address [facility] Co de Phone Number [facility] [id number] [place], [place] [id number] * CBC W/O DIFFERENTIAL (07/07/2019 4:59 AM CDT) [facility] WBC 7.9 4.4 - 10.7 x10E9/L 07/07/2019 7:06 AM CDT [facility] RBC 4.43 3.80 - 5.40 x10E12/L 07/07/2019 7:06 AM CDT [facility] Hemoglobin 12.2 12.0 - 17.6 gm/dL 07/07/2019 7:06 AM CDT [facility] Hematocrit 38.2 35.2 - 51.7 % 07/07/2019 7:06 AM CDT [facility] MCV 86.2 80.7 - 98.3 fl 07/07/2019 7:06 AM CDT [facility] MCH 27.5 26.7 - 34.0 pg 07/07/2019 7:06 AM CDT [facility] MCHC 31.9 30.8 - 35.9 gm/dL 07/07/2019 7:06 AM CDT [facility] Platelet Count 342 153 - 416 x10E9/L 07/07/2019 7:06 AM CDT [facility] RDW-CV 13.0 12.1 - 14.9 % 07/07/2019 7:06 AM CDT [facility] MPV 10.5 9.4 - 12.9 fl 07/07/2019 7:06 AM CDT [facility] Blood BLOOD SPECIMEN / Unknown 07/07/2019 4:59 AM CDT 07/07/2019 6:56 AM CDT Catalina Patricia ROUNDHOUSE SUPERVISOR-TRAINING AND DEVELOPMENT OFFICER LAB - HEMATOLOGY ORDERABLES Performing Organization Address [facility] Co de Phone Number [facility] [phone] [place] [phone] * CBC W AUTO DIFFERENTIAL (07/04/2019 5:35 AM CDT) [facility] WBC 7.1 4.4 - 10.7 x10E9/L 07/04/2019 8:03 AM CDT [facility] WBC Corrected 07/04/2019 8:03 AM CDT [facility] RBC 4.45 3.80 - 5.40 x10E12/L 07/04/2019 8:03 AM CDT [facility] Hemoglobin 12.4 12.0 - 17.6 gm/dL 07/04/2019 8:03 AM CDT [facility] Hematocrit 38.1 35.2 - 51.7 % 07/04/2019 8:03 AM CDT [facility] MCV 85.6 80.7 - 98.3 fl 07/04/2019 8:03 AM CDT [facility] MCH 27.9 26.7 - 34.0 pg 07/04/2019 8:03 AM CDT [facility] MCHC 32.5 30.8 - 35.9 gm/dL 07/04/2019 8:03 AM CDT [facility] Platelet Count 303 153 - 416 x10E9/L 07/04/2019 8:03 AM CDT [facility] RDW-CV 13.1 12.1 - 14.9 % 07/04/2019 8:03 AM CDT [facility] MPV 10.7 9.4 - 12.9 fl 07/04/2019 8:03 AM CDT [facility] Neutrophils % 62.5 44.0 - 73.0 % 07/04/2019 8:03 AM CDT [facility] Lymphocytes % 24.5 20.0 - 43.0 % 07/04/2019 8:03 AM CDT [facility] Monocytes % 8.6 5.0 - 13.0 % 07/04/2019 8:03 AM CDT [facility] Eosinophils % 3.2 0.0 - 6.0 % 07/04/2019 8:03 AM CDT [facility] Basophils % 0.4 0.0 - 2.0 % 07/04/2019 8:03 AM CDT [facility] Immature Granulocytes 0.8 0 - 1 % 07/04/2019 8:03 AM CDT [facility] Neutrophil Absolute 4.44 2.01 - 7.14 x10E9/L 07/04/2019 8:03 AM CDT [facility] Lymphocytes Absolute 1.74 1.07 - 3.94 x10E9/L 07/04/2019 8:03 AM CDT [facility] Monocytes Absolute 0.61 0.26 - 1.07 x10E9/L 07/04/2019 8:03 AM CDT [facility] Eosinophils Absolute 0.23 0 - 0.47 x10E9/L 07/04/2019 8:03 AM CDT [facility] Basophils Absolute 0.03 0 - 0.08 x10E9/L 07/04/2019 8:03 AM CDT [facility] Immature Granulocytes Absolute 0.06 0.00 - 0.06 x10E9/L 07/04/2019 8:03 AM CDT [facility] nRBC Auto 0 /100 WBC 07/04/2019 8:03 AM T [facility] Blood BLOOD SPECIMEN / Unknown 07/04/2019 5:35 AM CDT 07/04/2019 6:32 AM CDT Toma Mcfarlane ROUNDHOUSE SUPERVISOR-TRAINING AND DEVELOPMENT OFFICER LAB - HEMATOLOGY ORDERABLES Performing Organization Address City/State/[facility] Co de Phone Number [facility] [address] [place] [address] * (ABNORMAL) BASIC METABOLIC PANEL (CALCIUM TOTAL) (07/04/2019 5:35 AM CDT) Glucose 84 70 - 105 mg/dL 07/04/2019 7:06 AM CDT [facility] Sodium 135(L) 136 - 145 mmol/L 07/04/2019 7:06 AM CDT [facility] Potassium 4.5 3.5 - 5.1 mmol/L 07/04/2019 7:06 AM CDT [facility] Chloride 101 98 - 107 mmol/L 07/04/2019 7:06 AM CDT [facility] CO2 25 23 - 31 mmol/L 07/04/2019 7:06 AM CDT [facility] Calcium 8.9 8.4 - 10.4 mg/dL 07/04/2019 7:06 AM T [facility] Anion Gap 9 8 - 16 mmol/L 07/04/2019 7:06 AM CDT [facility] BUN 10 8.4 - 25.7 mg/dL 07/04/2019 7:06 AM CDT [facility] Creatinine 0.60(L) 0.72 - 1.25 mg/dL 07/04/2019 7:06 AM CDT [facility] eGFR by MDRD >60 >60 mL/min/1.7 3m2 07/04/2019 7:06 AM CDT [facility] eGFR by MDRD >60 >60 mL/min/1.7 3m2 07/04/2019 7:06 AM CDT [facility] Blood BLOOD SPECIMEN / Unknown 07/04/2019 5:35 AM CDT 07/04/2019 6:32 AM CDT Toma Mcfarlane ROUNDHOUSE SUPERVISOR-TRAINING AND DEVELOPMENT OFFICER LAB - CHEMISTRY O RDERABLES [facility] [address] [place] [address] * (ABNORMAL) CBC W AUTO DIFFERENTIAL (06/30/2019 4:00 AM CDT) WBC 7.1 4.4 - 10.7 x10E9/L 06/30/2019 6:45 AM CDT [facility] WBC Corrected 06/30/2019 6:45 AM CDT [facility] RBC 4.62 3.80 - 5.40 x10E12/L 06/30/2019 6:45 AM CDT [facility] Hemoglobin 12.7 12.0 - 17.6 gm/dL 06/30/2019 6:45 AM CDT [facility] Hematocrit 40.1 35.2 - 51.7 % 06/30/2019 6:45 AM CDT [facility] MCV 86.8 80.7 - 98.3 fl 06/30/2019 6:45 AM CDT [facility] MCH 27.5 26.7 - 34.0 pg 06/30/2019 6:45 AM CDT [facility] MCHC 31.7 30.8 - 35.9 gm/dL 06/30/2019 6:45 AM CDT [facility] Platelet Count 313 153 - 416 x10E9/L 06/30/2019 6:45 AM CDT [facility] RDW-CV 13.3 12.1 - 14.9 % 06/30/2019 6:45 AM CDT [facility] MPV 10.8 9.4 - 12.9 fl 06/30/2019 6:45 AM CDT [facility] Neutrophils % 61.5 44.0 - 73.0 % 06/30/2019 6:45 AM CDT [facility] Lymphocytes % 25.9 20.0 - 43.0 % 06/30/2019 6:45 AM CDT [facility] Monocytes % 7.7 5.0 - 13.0 % 06/30/2019 6:45 AM CDT [facility] Eosinophils % 2.8 0.0 - 6.0 % 06/30/2019 6:45 AM CDT [facility] Basophils % 0.8 0.0 - 2.0 % 06/30/2019 6:45 AM CDT [facility] Immature Granulocytes 1.3(H) 0 - 1 % 06/30/2019 6:45 AM CDT [facility] Neutrophil Absolute 4.38 2.01 - 7.14 x10E9/L 06/30/2019 6:45 AM CDT [facility] Lymphocytes Absolute 1.85 1.07 - 3.94 x10E9/L 06/30/2019 6:45 AM CDT [facility] Monocytes Absolute 0.55 0.26 - 1.07 x10E9/L 06/30/2019 6:45 AM CDT [facility] Eosinophils Absolute 0.20 0 - 0.47 x10E9/L 06/30/2019 6:45 AM CDT [facility] Basophils Absolute 0.06 0 - 0.08 x10E9/L 06/30/2019 6:45 AM CDT [facility] Immature Granulocytes Absolute 0.09(H) 0.00 - 0.06 x10E9/L 06/30/2019 6:45 AM CDT [facility] nRBC Auto 0 /100 WBC 06/30/2019 6:45 AM CDT [facility] Blood BLOOD SPECIMEN / Unknown 06/30/2019 4:00 AM CDT 06/30/2019 6:40 AM CDT Toma Mcfarlane ROUNDHOUSE SUPERVISOR-TRAINING AND DEVELOPMENT OFFICER LAB - HEMATOLOGY ORDERABLES [facility] [address] [place] [address] * (ABNORMAL) BASIC METABOLIC PANEL (CALCIUM TOTAL) (06/30/2019 4:00 AM CDT) Pathologist [facility] Glucose 81 70 - 105 mg/dL 06/30/2019 7:07 AM CDT [facility] Sodium 137 136 - 145 mmol/L 06/30/2019 7:07 AM CDT [facility] Potassium 4.1 3.5 - 5.1 mmol/L 06/30/2019 7:07 AM CDT [facility] Chloride 102 98 - 107 mmol/L 06/30/2019 7:07 AM CDT [facility] CO2 25 23 - 31 mmol/L 06/30/2019 7:07 AM CDT [facility] Calcium 9.2 8.4 - 10.4 mg/dL 06/30/2019 7:07 AM T [facility] Anion Gap 10 8 - 16 mmol/L 06/30/2019 7:07 AM CDT [facility] BUN 11 8.4 - 25.7 mg/dL 06/30/2019 7:07 AM CDT [facility] Creatinine 0.65(L) 0.72 - 1.25 mg/dL 06/30/2019 7:07 AM CDT [facility] eGFR by MDRD >60 >60 mL/min/1.7 3m2 06/30/2019 7:07 AM CDT [facility] eGFR by MDRD >60 >60 mL/min/1.7 3m2 06/30/2019 7:07 AM T [facility] Blood BLOOD SPECIMEN / Unknown 06/30/2019 4:00 AM CDT 06/30/2019 6:39 AM CDT Toma Mcfarlane R[employer]HOUSE SUPERVISOR-TRAINING AND DEVELOPMENT OFFICER LAB - CHEMISTRY O RDERABLES [facility] [address] [place] [address] * CBC W AUTO DIFFERENTIAL (06/27/2019 4:00 AM CDT) WBC 6.7 4.4 - 10.7 x10E9/L 06/27/2019 6:45 AM CDT [facility] WBC Corrected 06/27/2019 6:45 AM CDT [facility] RBC 4.58 3.80 - 5.40 x10E12/L 06/27/2019 6:45 AM CDT [facility] Hemoglobin 12.7 12.0 - 17.6 gm/dL 06/27/2019 6:45 AM CDT [facility] Hematocrit 39.6 35.2 - 51.7 % 06/27/2019 6:45 AM CDT [facility] MCV 86.5 80.7 - 98.3 fl 06/27/2019 6:45 AM CDT [facility] MCH 27.7 26.7 - 34.0 pg 06/27/2019 6:45 AM CDT [facility] MCHC 32.1 30.8 - 35.9 gm/dL 06/27/2019 6:45 AM CDT [facility] Platelet Count 305 153 - 416 x10E9/L 06/27/2019 6:45 AM CDT [facility] RDW-CV 13.5 12.1 - 14.9 % 06/27/2019 6:45 AM CDT [facility] MPV 10.4 9.4 - 12.9 fl 06/27/2019 6:45 AM CDT [facility] Neutrophils % 59.5 44.0 - 73.0 % 06/27/2019 6:45 AM CDT [facility] Lymphocytes % 28.0 20.0 - 43.0 % 06/27/2019 6:45 AM CDT [facility] Monocytes % 7.7 5.0 - 13.0 % 06/27/2019 6:45 AM CDT [facility] Eosinophils % 3.6 0.0 - 6.0 % 06/27/2019 6:45 AM CDT [facility] Basophils % 0.6 0.0 - 2.0 % 06/27/2019 6:45 AM CDT [facility] Immature Granulocytes 0.6 0 - 1 % 06/27/2019 6:45 AM CDT [facility] Neutrophil Absolute 4.00 2.01 - 7.14 x10E9/L 06/27/2019 6:45 AM CDT [facility] Lymphocytes Absolute 1.88 1.07 - 3.94 x10E9/L 06/27/2019 6:45 AM CDT [facility] Monocytes Absolute 0.52 0.26 - 1.07 x10E9/L 06/27/2019 6:45 AM CDT [facility] Eosinophils Absolute 0.24 0 - 0.47 x10E9/L 06/27/2019 6:45 AM CDT [facility] Basophils Absolute 0.04 0 - 0.08 x10E9/L 06/27/2019 6:45 AM CDT [facility] Immature Granulocytes Absolute 0.04 0.00 - 0.06 x10E9/L 06/27/2019 6:45 AM CDT [facility] nRBC Auto 0 /100 WBC 06/27/2019 6:45 AM CDT [facility] Blood BLOOD SPECIMEN / Unknown 06/27/2019 4:00 AM CDT 06/27/2019 6:35 AM CDT Toma Mcfarlane R[employer]HOUSE SUPERVISOR-TRAINING AND DEVELOPMENT OFFICER LAB - HEMATOLOGY ORDERABLES [facility] [id number] [place] [address] * (ABNORMAL) BASIC METABOLIC PANEL (CALCIUM TOTAL) (06/27/2019 4:00 AM CDT) Glucose 91 70 - 105 mg/dL 06/27/2019 7:22 AM CDT [facility] Sodium 136 136 - 145 mmol/L 06/27/2019 7:22 AM CDT [facility] Potassium 4.4 3.5 - 5.1 mmol/L 06/27/2019 7:22 AM CDT [facility] Chloride 100 98 - 107 mmol/L 06/27/2019 7:22 AM CDT [facility] CO2 26 23 - 31 mmol/L 06/27/2019 7:22 AM CDT [facility] Calcium 9.2 8.4 - 10.4 mg/dL 06/27/2019 7:22 AM CDT [facility] Anion Gap 10 8 - 16 mmol/L 06/27/2019 7:22 AM CDT [facility] BUN 13 8.4 - 25.7 mg/dL 06/27/2019 7:22 AM CDT [facility] Creatinine 0.65(L) 0.72 - 1.25 mg/dL 06/27/2019 7:22 AM CDT [facility] eGFR by MDRD >60 >60 mL/min/1.7 3m2 06/27/2019 7:22 AM CDT [facility] eGFR by MDRD >60 >60 mL/min/1.7 3m2 06/27/2019 7:22 AM CDT [facility] Blood BLOOD SPECIMEN / Unknown 06/27/2019 4:00 AM CDT 06/27/2019 6:35 AM CDT Toma Mcfarlane R[employer]HOUSE SUPERVISOR-TRAINING AND DEVELOPMENT OFFICER LAB - CHEMISTRY O RDERABLES [facility] [address] [place] [address] * CBC W AUTO DIFFERENTIAL (06/23/2019 5:00 AM CDT) WBC 6.2 4.4 - 10.7 x10E9/L 06/23/2019 6:42 AM CDT [facility] WBC Corrected 06/23/2019 6:42 AM CDT [facility] RBC 4.34 3.80 - 5.40 x10E12/L 06/23/2019 6:42 AM CDT [facility] Hemoglobin 12.2 12.0 - 17.6 gm/dL 06/23/2019 6:42 AM CDT [facility] Hematocrit 37.7 35.2 - 51.7 % 06/23/2019 6:42 AM CDT [facility] MCV 86.9 80.7 - 98.3 fl 06/23/2019 6:42 AM CDT [facility] MCH 28.1 26.7 - 34.0 pg 06/23/2019 6:42 AM CDT [facility] MCHC 32.4 30.8 - 35.9 gm/dL 06/23/2019 6:42 AM CDT [facility] Platelet Count 294 153 - 416 x10E9/L 06/23/2019 6:42 AM CDT [facility] RDW-CV 13.3 12.1 - 14.9 % 06/23/2019 6:42 AM CDT [facility] MPV 10.7 9.4 - 12.9 fl 06/23/2019 6:42 AM CDT [facility] Neutrophils % 55.5 44.0 - 73.0 % 06/23/2019 6:42 AM CDT [facility] Lymphocytes % 31.4 20.0 - 43.0 % 06/23/2019 6:42 AM CDT [facility] Monocytes % 8.1 5.0 - 13.0 % 06/23/2019 6:42 AM CDT [facility] Eosinophils % 3.2 0.0 - 6.0 % 06/23/2019 6:42 AM CDT [facility] Basophils % 1.0 0.0 - 2.0 % 06/23/2019 6:42 AM CDT [facility] Immature Granulocytes 0.8 0 - 1 % 06/23/2019 6:42 AM CDT [facility] Neutrophil Absolute 3.43 2.01 - 7.14 x10E9/L 06/23/2019 6:42 AM CDT [facility] Lymphocytes Absolute 1.94 1.07 - 3.94 x10E9/L 06/23/2019 6:42 AM CDT [facility] Monocytes Absolute 0.50 0.26 - 1.07 x10E9/L 06/23/2019 6:42 AM CDT [facility] Eosinophils Absolute 0.20 0 - 0.47 x10E9/L 06/23/2019 6:42 AM CDT [facility] Basophils Absolute 0.06 0 - 0.08 x10E9/L 06/23/2019 6:42 AM CDT [facility] Immature Granulocytes Absolute 0.05 0.00 - 0.06 x10E9/L 06/23/2019 6:42 AM CDT [facility] nRBC Auto 0 /100 WBC 06/23/2019 6:42 AM CDT [facility] Blood BLOOD SPECIMEN / Unknown 06/23/2019 5:00 AM CDT 06/23/2019 6:35 AM CDT Toma Mcfarlane APRN-TRAINING AND DEVELOPMENT OFFICER LAB - HEMATOLOGY ORDERABLES [facility] [address] [place] [address] * (ABNORMAL) BASIC METABOLIC PANEL (CALCIUM TOTAL) (06/23/2019 5:00 AM CDT) [facility] Glucose 81 70 - 105 mg/dL 06/23/2019 6:58 AM CDT [facility] Sodium 136 136 - 145 mmol/L 06/23/2019 6:58 AM CDT [facility] Potassium 4.2 3.5 - 5.1 mmol/L 06/23/2019 6:58 AM CDT [facility] Chloride 102 98 - 107 mmol/L 06/23/2019 6:58 AM CDT [facility] CO2 27 23 - 31 mmol/L 06/23/2019 6:58 AM CDT [facility] Calcium 9.0 8.4 - 10.4 mg/dL 06/23/2019 6:58 AM CDT [facility] Anion Gap 7(L) 8 - 16 mmol/L 06/23/2019 6:58 AM CDT [facility] BUN 14 8.4 - 25.7 mg/dL 06/23/2019 6:58 AM CDT [facility] Creatinine 0.70(L) 0.72 - 1.25 mg/dL 06/23/2019 6:58 AM CDT [facility] eGFR by MDRD >60 >60 mL/min/1.7 3m2 06/23/2019 6:58 AM CDT [facility] eGFR by MDRD >60 >60 mL/min/1.7 3m2 06/23/2019 6:58 AM CDT [facility] Blood BLOOD SPECIMEN / Unknown 06/23/2019 5:00 AM CDT 06/23/2019 6:35 AM CDT Toma Mcfarlane [employer] SUPERVISOR-TRAINING AND DEVELOPMENT OFFICER LAB - CHEMISTRY O RDERABLES Performing Organization Address City/State/[facility] Co de Phone Number [facility] [address] [place] [address] * URINE MICROSCOPIC ONLY REFLEX TO CULTURE (06/22/2019 7:59 PM CDT) Reflex Status Culture not indicated 06/23/2019 6:50 AM CDT [facility] RBC UA 0-2 None Seen, 0-2, 3-5 # /hpf 06/23/2019 6:50 AM CDT [facility] WBC UA 0-5 None Seen, 0-5 # /hpf 06/23/2019 6:50 AM CDT [facility] Bacteria UA None Seen None Seen 06/23/2019 6:50 AM CDT [facility] Squamous Epithelial Cells None Seen None Seen, 0-2, 3-5 /hpf 06/23/2019 6:50 AM CDT [facility] Urine URINE SPECIMEN COLLECTION, CATHETERIZED / Unknown 06/22/2019 7:59 PM CDT 06/23/2019 6:43 AM CDT Narrative [facility] - 06/23/2019 6:50 AM CDT Chris Sousa MD LAB - URINALYSIS ORD ERABLES [facility] [address] [facility] [place] [address] * (ABNORMAL) URINALYSIS REFLEX MICROSCOPIC REFLEX CULTURE (06/22/2019 7:59 PM CDT) Color UA Straw Straw, Yellow 06/23/2019 6:49 AM CDT [facility] Clarity UA Clear Clear 06/23/2019 6:49 AM CDT [facility] Glucose UA Negative Negative 06/23/2019 6:49 AM CDT [facility] Bilirubin UA Negative Negative 06/23/2019 6:49 AM CDT [facility] Ketone UA Negative Negative 06/23/2019 6:49 AM CDT [facility] Specific [place] UA 1.008 1.005 - 1.030 06/23/2019 6:49 AM CDT [facility] Blood UA 1+(A) Negative 06/23/2019 6:49 AM CDT [facility] pH UA 6.0 5.0 - 8.0 pH 06/23/2019 6:49 AM CDT [facility] Protein UA Negative Negative 06/23/2019 6:49 AM CDT [facility] Urobilinogen UA Negative Negative mg/dL 06/23/2019 6:49 AM CDT [facility] Nitrite UA Negative Negative 06/23/2019 6:49 AM CDT [facility] Leukocyte UA Negative Negative 06/23/2019 6:49 AM CDT [facility] Urine Microscopy Urine microscopy to follow 06/23/2019 6:49 AM CDT [facility] Reflex Status Culture not indicated 06/23/2019 6:49 AM CDT [facility] Urine URINE SPECIMEN COLLECTION, CATHETERIZED / Unknown 06/22/2019 7:59 PM CDT 06/23/2019 6:43 AM CDT Narrative [facility] - 06/23/2019 6:49 AM CDT Chris Sousa MD LAB - URINALYSIS ORD ERABLES [facility] [address] [place] [address] * CBC W AUTO DIFFERENTIAL (06/20/2019 3:59 AM CDT) WBC 7.2 4.4 - 10.7 x10E9/L 06/20/2019 7:38 AM CDT [facility] WBC Corrected 06/20/2019 7:38 AM CDT [facility] RBC 4.29 3.80 - 5.40 x10E12/L 06/20/2019 7:38 AM CDT [facility] Hemoglobin 12.0 12.0 - 17.6 gm/dL 06/20/2019 7:38 AM CDT [facility] Hematocrit 36.8 35.2 - 51.7 % 06/20/2019 7:38 AM CDT [facility] MCV 85.8 80.7 - 98.3 fl 06/20/2019 7:38 AM CDT [facility] MCH 28.0 26.7 - 34.0 pg 06/20/2019 7:38 AM CDT [facility] MCHC 32.6 30.8 - 35.9 gm/dL 06/20/2019 7:38 AM CDT [facility] Platelet Count 373 153 - 416 x10E9/L 06/20/2019 7:38 AM CDT [facility] RDW-CV 13.5 12.1 - 14.9 % 06/20/2019 7:38 AM CDT [facility] MPV 10.2 9.4 - 12.9 fl 06/20/2019 7:38 AM CDT [facility] Neutrophils % 63.6 44.0 - 73.0 % 06/20/2019 7:38 AM CDT [facility] Lymphocytes % 25.3 20.0 - 43.0 % 06/20/2019 7:38 AM CDT [facility] Monocytes % 7.6 5.0 - 13.0 % 06/20/2019 7:38 AM CDT [facility] Eosinophils % 2.1 0.0 - 6.0 % 06/20/2019 7:38 AM CDT [facility] Basophils % 0.6 0.0 - 2.0 % 06/20/2019 7:38 AM CDT [facility] Immature Granulocytes 0.8 0 - 1 % 06/20/2019 7:38 AM CDT [facility] Neutrophil Absolute 4.60 2.01 - 7.14 x10E9/L 06/20/2019 7:38 AM CDT [facility] Lymphocytes Absolute 1.83 1.07 - 3.94 x10E9/L 06/20/2019 7:38 AM CDT [facility] Monocytes Absolute 0.55 0.26 - 1.07 x10E9/L 06/20/2019 7:38 AM CDT [facility] Eosinophils Absolute 0.15 0 - 0.47 x10E9/L 06/20/2019 7:38 AM CDT [facility] Basophils Absolute 0.04 0 - 0.08 x10E9/L 06/20/2019 7:38 AM CDT [facility] Immature Granulocytes Absolute 0.06 0.00 - 0.06 x10E9/L 06/20/2019 7:38 AM CDT [facility] nRBC Auto 0 /100 WBC 06/20/2019 7:38 AM CDT [facility] Blood BLOOD SPECIMEN / Unknown 06/20/2019 3:59 AM CDT 06/20/2019 7:13 AM CDT Toma Mcfarlane [employer] LAB - HEMATOLOGY ORDERABLES Performing Organization Address City/State/[facility] Co de Phone Number [facility] [id number] [place] [address] * (ABNORMAL) BASIC METABOLIC PANEL (CALCIUM TOTAL) (06/20/2019 3:59 AM CDT) [facility] Glucose 88 70 - 105 mg/dL 06/20/2019 7:45 AM CDT [facility] Sodium 133(L) 136 - 145 mmol/L 06/20/2019 7:45 AM CDT [facility] Potassium 4.8 3.5 - 5.1 mmol/L 06/20/2019 7:45 AM CDT [facility] Chloride 100 98 - 107 mmol/L 06/20/2019 7:45 AM CDT [facility] CO2 28 23 - 31 mmol/L 06/20/2019 7:45 AM CDT [facility] LABORATORY Calcium 8.9 8.4 - 10.4 mg/dL 06/20/2019 7:45 AM CDT [facility] Anion Gap 5(L) 8 - 16 mmol/L 06/20/2019 7:45 AM CDT [facility] BUN 16 8.4 - 25.7 mg/dL 06/20/2019 7:45 AM CDT [facility] Creatinine 0.69(L) 0.72 - 1.25 mg/dL 06/20/2019 7:45 AM CDT [facility] eGFR by MDRD >60 >60 mL/min/1.7 3m2 06/20/2019 7:45 AM CDT [facility] eGFR by MDRD >60 >60 mL/min/1.7 3m2 06/20/2019 7:45 AM CDT [facility] Blood BLOOD SPECIMEN / Unknown 06/20/2019 3:59 AM CDT 06/20/2019 7:13 AM CDT Toma Mcfarlane ROUNDHOUSE SUPERVISOR-TRAINING AND DEVELOPMENT OFFICER LAB - CHEMISTRY O RDERABLES [facility] [address] [place] [address] * XR ABDOMEN KUB (06/17/2019 [...] Stearns MD DIAGNOSTIC IMAGING O RDERABLES * CULTURE STREP GROUP A (06/16/2019 5:18 PM CDT) Culture Negative for beta-hemolytic Streptococcus Group A JHOANA 06/18/2019 10:36 AM CDT [facility] MICROBIOLOGY Microbiology ENTIRE THROAT (SURFACE REGION OF NECK) / Unknown Collection / Unknown 06/16/2019 5:18 PM CDT 06/16/2019 6:10 PM CDT [facility]CROBIOLOG Y ORDERABLES Performing Organization Address City/[facility]/ZIP Co de Phone Number [facility] MICROBIOLOGY [address] [place], [place] [id number] [place] [address] * STREP A SCREEN DIRECT W RFLX STREP A CULTURE (06/16/2019 5:18 PM CDT) Strep A Rapid Negative Negative 06/16/2019 6:21 PM CDT [facility] Microbiology ENTIRE THROAT (SURFACE REGION OF NECK) / Unknown Collection / Unknown 06/16/2019 5:18 PM CDT 06/16/2019 6:10 PM CDT Narrative [facility] - 06/16/2019 6:21 PM CDT Test has reflexed to a Strep A culture. [facility]CRO[facility]OLOG Y ORDERABLES Performing Organization Address City/[facility]/ZIP Co de Phone Number [facility] [address] [place] [address] * (ABNORMAL) CBC W AUTO DIFFERENTIAL (06/16/2019 5:10 AM CDT) WBC 7.8 4.4 - 10.7 x10E9/L 06/16/2019 6:40 AM CDT [facility] WBC Corrected 06/16/2019 6:40 AM CDT [facility] RBC 4.47 3.80 - 5.40 x10E12/L 06/16/2019 6:40 AM CDT [facility] Hemoglobin 12.2 12.0 - 17.6 gm/dL 06/16/2019 6:40 AM CDT [facility] Hematocrit 38.5 35.2 - 51.7 % 06/16/2019 6:40 AM CDT [facility] MCV 86.1 80.7 - 98.3 fl 06/16/2019 6:40 AM CDT [facility] MCH 27.3 26.7 - 34.0 pg 06/16/2019 6:40 AM CDT [facility] MCHC 31.7 30.8 - 35.9 gm/dL 06/16/2019 6:40 AM CDT [facility] Platelet Count 500(H) 153 - 416 x10E9/L 06/16/2019 6:40 AM CDT [facility] RDW-CV 13.4 12.1 - 14.9 % 06/16/2019 6:40 AM CDT [facility] MPV 9.5 9.4 - 12.9 fl 06/16/2019 6:40 AM CDT [facility] Neutrophils % 66.9 44.0 - 73.0 % 06/16/2019 6:40 AM CDT [facility] Lymphocytes % 20.2 20.0 - 43.0 % 06/16/2019 6:40 AM CDT [facility] Monocytes % 7.5 5.0 - 13.0 % 06/16/2019 6:40 AM CDT [facility] Eosinophils % 2.4 0.0 - 6.0 % 06/16/2019 6:40 AM CDT [facility] Basophils % 0.8 0.0 - 2.0 % 06/16/2019 6:40 AM CDT [facility] Immature Granulocytes 2.2(H) 0 - 1 % 06/16/2019 6:40 AM CDT [facility] Neutrophil Absolute 5.21 2.01 - 7.14 x10E9/L 06/16/2019 6:40 AM CDT [facility] Lymphocytes Absolute 1.57 1.07 - 3.94 x10E9/L 06/16/2019 6:40 AM CDT [facility] Monocytes Absolute 0.58 0.26 - 1.07 x10E9/L 06/16/2019 6:40 AM CDT [facility] Eosinophils Absolute 0.19 0 - 0.47 x10E9/L 06/16/2019 6:40 AM CDT [facility] Basophils Absolute 0.06 0 - 0.08 x10E9/L 06/16/2019 6:40 AM CDT [facility] Immature Granulocytes Absolute 0.17(H) 0.00 - 0.06 x10E9/L 06/16/2019 6:40 AM CDT [facility] nRBC Auto 0 /100 WBC 06/16/2019 6:40 AM CDT [facility] Blood BLOOD SPECIMEN / Unknown 06/16/2019 5:10 AM CDT 06/16/2019 6:25 AM CDT Toma Mcfarlane ROUNDHOUSE SUPERVISOR-TRAINING AND DEVELOPMENT OFFICER LAB - HEMATOLOGY ORDERABLES [facility] [address] [place] [address] * (ABNORMAL) BASIC METABOLIC PANEL (CALCIUM TOTAL) (06/16/2019 5:10 AM CDT) Glucose 92 70 - 105 mg/dL 06/16/2019 6:55 AM CDT [facility] Sodium 134(L) 136 - 145 mmol/L 06/16/2019 6:55 AM CDT [facility] Potassium 4.7 3.5 - 5.1 mmol/L 06/16/2019 6:55 AM CDT [facility] Chloride 99 98 - 107 mmol/L 06/16/2019 6:55 AM CDT [facility] CO2 26 23 - 31 mmol/L 06/16/2019 6:55 AM CDT [facility] Calcium 9.1 8.4 - 10.4 mg/dL 06/16/2019 6:55 AM T [facility] Anion Gap 9 8 - 16 mmol/L 06/16/2019 6:55 AM CDT [facility] BUN 17 8.4 - 25.7 mg/dL 06/16/2019 6:55 AM CDT [facility] Creatinine 0.74 0.72 - 1.25 mg/dL 06/16/2019 6:55 AM CDT [facility] eGFR by MDRD >60 >60 mL/min/1.7 3m2 06/16/2019 6:55 AM CDT [facility] eGFR by MDRD >60 >60 mL/min/1.7 3m2 06/16/2019 6:55 AM CDT [facility] Blood BLOOD SPECIMEN / Unknown 06/16/2019 5:10 AM CDT 06/16/2019 6:25 AM CDT Toma Mcfarlane ROUNDHOUSE SUPERVISOR-TRAINING AND DEVELOPMENT OFFICER LAB - CHEMISTRY O RDERABLES Performing Organization Address [facility] Co de Phone Number [facility] [address] [place] [address] * (ABNORMAL) BASIC METABOLIC PANEL (CALCIUM TOTAL) (06/13/2019 4:40 AM CDT) [facility] Glucose 96 70 - 105 mg/dL 06/13/2019 7:23 AM CDT [facility] Sodium 133(L) 136 - 145 mmol/L 06/13/2019 7:23 AM CDT [facility] Potassium 5.1 3.5 - 5.1 mmol/L 06/13/2019 7:23 AM CDT [facility] Chloride 98 98 - 107 mmol/L 06/13/2019 7:23 AM CDT [facility] CO2 28 23 - 31 mmol/L 06/13/2019 7:23 AM CDT [facility] Calcium 8.8 8.4 - 10.4 mg/dL 06/13/2019 7:23 AM CDT [facility] Anion Gap 7(L) 8 - 16 mmol/L 06/13/2019 7:23 AM CDT [facility] BUN 15 8.4 - 25.7 mg/dL 06/13/2019 7:23 AM CDT [facility] Creatinine 0.67(L) 0.72 - 1.25 mg/dL 06/13/2019 7:23 AM CDT [facility] eGFR by MDRD >60 >60 mL/min/1.7 3m2 06/13/2019 7:23 AM CDT [facility] eGFR by MDRD >60 >60 mL/min/1.7 3m2 06/13/2019 7:23 AM CDT [facility] Blood BLOOD SPECIMEN / Unknown 06/13/2019 4:40 AM CDT 06/13/2019 6:42 AM CDT Catalina Patricia ROUNDHOUSE SUPERVISOR-TRAINING AND DEVELOPMENT OFFICER LAB - CHEMISTRY O RDERABLES [facility] [address] [place] [id number] * (ABNORMAL) CBC W AUTO DIFFERENTIAL (06/13/2019 4:40 AM CDT) WBC 7.5 4.4 - 10.7 x10E9/L 06/13/2019 6:55 AM CDT [facility] WBC Corrected 06/13/2019 6:55 AM CDT [facility] RBC 4.18 3.80 - 5.40 x10E12/L 06/13/2019 6:55 AM CDT [facility] Hemoglobin 11.5(L) 12.0 - 17.6 gm/dL 06/13/2019 6:55 AM CDT [facility] Hematocrit 35.9 35.2 - 51.7 % 06/13/2019 6:55 AM CDT [facility] MCV 85.9 80.7 - 98.3 fl 06/13/2019 6:55 AM CDT [facility] MCH 27.5 26.7 - 34.0 pg 06/13/2019 6:55 AM CDT [facility] MCHC 32.0 30.8 - 35.9 gm/dL 06/13/2019 6:55 AM CDT [facility] Platelet Count 572(H) 153 - 416 x10E9/L 06/13/2019 6:55 AM CDT [facility] RDW-CV 13.4 12.1 - 14.9 % 06/13/2019 6:55 AM CDT [facility] MPV 9.1(L) 9.4 - 12.9 fl 06/13/2019 6:55 AM CDT [facility] Neutrophils % 63.4 44.0 - 73.0 % 06/13/2019 6:55 AM CDT [facility] Lymphocytes % 24.6 20.0 - 43.0 % 06/13/2019 6:55 AM CDT [facility] Monocytes % 7.1 5.0 - 13.0 % 06/13/2019 6:55 AM CDT [facility] Eosinophils % 2.4 0.0 - 6.0 % 06/13/2019 6:55 AM CDT [facility] Basophils % 0.9 0.0 - 2.0 % 06/13/2019 6:55 AM CDT [facility] Immature Granulocytes 1.6(H) 0 - 1 % 06/13/2019 6:55 AM CDT [facility] Neutrophil Absolute 4.75 2.01 - 7.14 x10E9/L 06/13/2019 6:55 AM CDT [facility] Lymphocytes Absolute 1.84 1.07 - 3.94 x10E9/L 06/13/2019 6:55 AM CDT [facility] Monocytes Absolute 0.53 0.26 - 1.07 x10E9/L 06/13/2019 6:55 AM CDT [facility] Eosinophils Absolute 0.18 0 - 0.47 x10E9/L 06/13/2019 6:55 AM CDT [facility] Basophils Absolute 0.07 0 - 0.08 x10E9/L 06/13/2019 6:55 AM CDT [facility] Immature Granulocytes Absolute 0.12(H) 0.00 - 0.06 x10E9/L 06/13/2019 6:55 AM CDT [facility] nRBC Auto 0 /100 WBC 06/13/2019 6:55 AM CDT [facility] Blood BLOOD SPECIMEN / Unknown 06/13/2019 4:40 AM CDT 06/13/2019 6:42 AM CDT Catalina Patricia ROUNDHOUSE SUPERVISOR-TRAINING AND DEVELOPMENT OFFICER LAB - HEMATOLOGY ORDERABLES [facility] [address] [place] [address] * (ABNORMAL) BASIC METABOLIC PANEL (CALCIUM TOTAL) (06/10/2019 4:35 AM CDT) [facility] Glucose 85 70 - 105 mg/dL 06/10/2019 7:46 AM CDT [facility] Sodium 135(L) 136 - 145 mmol/L 06/10/2019 7:46 AM CDT [facility] Potassium 3.3(L) 3.5 - 5.1 mmol/L 06/10/2019 7:46 AM CDT [facility] Chloride 98 98 - 107 mmol/L 06/10/2019 7:46 AM CDT [facility] CO2 28 23 - 31 mmol/L 06/10/2019 7:46 AM CDT [facility] Calcium 8.1(L) 8.4 - 10.4 mg/dL 06/10/2019 7:46 AM CDT [facility] Anion Gap 9 8 - 16 mmol/L 06/10/2019 7:46 AM CDT [facility] BUN 11 8.4 - 25.7 mg/dL 06/10/2019 7:46 AM CDT [facility] Creatinine 0.66(L) 0.72 - 1.25 mg/dL 06/10/2019 7:46 AM CDT [facility] eGFR by MDRD >60 >60 mL/min/1.7 3m2 06/10/2019 7:46 AM CDT [facility] eGFR by MDRD >60 >60 mL/min/1.7 3m2 06/10/2019 7:46 AM CDT [facility] Blood BLOOD SPECIMEN / Unknown Venipuncture / Unknown 06/10/2019 4:35 AM CDT 06/10/2019 7:07 AM CDT Lucas Wheat MD LAB - CHEMISTRY ALEXIS DEVRI[facility] [place] Organization Address City/State/ZIP Co de Phone Number [facility] [address] [place] [address] * (ABNORMAL) CBC W AUTO DIFFERENTIAL (06/10/2019 4:35 AM CDT) WBC 7.1 4.4 - 10.7 x10E9/L 06/10/2019 7:17 AM CDT [facility] WBC Corrected 06/10/2019 7:17 AM CDT [facility] RBC 3.75(L) 3.80 - 5.40 x10E12/L 06/10/2019 7:17 AM CDT [facility] Hemoglobin 10.4(L) 12.0 - 17.6 gm/dL 06/10/2019 7:17 AM CDT [facility] Hematocrit 31.7(L) 35.2 - 51.7 % 06/10/2019 7:17 AM CDT [facility] MCV 84.5 80.7 - 98.3 fl 06/10/2019 7:17 AM CDT [facility] MCH 27.7 26.7 - 34.0 pg 06/10/2019 7:17 AM CDT [facility] MCHC 32.8 30.8 - 35.9 gm/dL 06/10/2019 7:17 AM CDT [facility] Platelet Count 489(H) 153 - 416 x10E9/L 06/10/2019 7:17 AM CDT [facility] RDW-CV 13.2 12.1 - 14.9 % 06/10/2019 7:17 AM CDT [facility] MPV 9.6 9.4 - 12.9 fl 06/10/2019 7:17 AM CDT [facility] Neutrophils % 70.8 44.0 - 73.0 % 06/10/2019 7:17 AM CDT [facility] Lymphocytes % 17.0(L) 20.0 - 43.0 % 06/10/2019 7:17 AM CDT [facility] Monocytes % 8.3 5.0 - 13.0 % 06/10/2019 7:17 AM CDT [facility] Eosinophils % 1.8 0.0 - 6.0 % 06/10/2019 7:17 AM CDT [facility] Basophils % 0.4 0.0 - 2.0 % 06/10/2019 7:17 AM CDT [facility] Immature Granulocytes 1.7(H) 0 - 1 % 06/10/2019 7:17 AM CDT [facility] Neutrophil Absolute 5.03 2.01 - 7.14 x10E9/L 06/10/2019 7:17 AM CDT [facility] Lymphocytes Absolute 1.21 1.07 - 3.94 x10E9/L 06/10/2019 7:17 AM CDT [facility] Monocytes Absolute 0.59 0.26 - 1.07 x10E9/L 06/10/2019 7:17 AM CDT [facility] Eosinophils Absolute 0.13 0 - 0.47 x10E9/L 06/10/2019 7:17 AM CDT [facility] Basophils Absolute 0.03 0 - 0.08 x10E9/L 06/10/2019 7:17 AM CDT [facility] Immature Granulocytes Absolute 0.12(H) 0.00 - 0.06 x10E9/L 06/10/2019 7:17 AM CDT [facility] nRBC Auto 0 /100 WBC 06/10/2019 7:17 AM CDT [facility] Blood BLOOD SPECIMEN / Unknown Venipuncture / Unknown 06/10/2019 4:35 AM CDT 06/10/2019 7:07 AM CDT Lucas Wheat MD LAB - HEMATOLOGY ORD ERABLES [facility] [address] [place] [address] documented in this encounter Visit Diagnoses Not on filedocumented in this encounter Care Teams Passenger Locomotive Engineer Relationship Specialty Start Date End Date Ilan Pearson MD [address] [place] [id number] PCP - General Family Medicine 05/25/19 documented as of this encounter
--- OUTSIDE RECORDS SUMMARY | 2024-02-27 10:40 | XMS_ITS | Encounter Summary ---
Author Organization [facility] Health Address [address] [facility] [place] [address] Care Team Providers Care Reconciliation Coordinator Name Role Phone Ilan Pearson MD Primary Care Provider Encounter Details Date Type Department Care Team (Late st Contact Info) Description 07/12/2019 11:11 AM CDT - 07/12/2019 11:59 PM CDT Hospital Encounter [facility] DI[facility]STIC RAD [facility] [address] [place] [address] Kamron Corrigan MD No info Available Discharge Disposition: Home or Self Care Social [...] XR CERVICAL SPINE 2 OR 3VW Routine 07/12/2019 11:24 AM CDT Central cord syndrome, initial encounter (HCC) documented in this encounter Results * XR CERVICAL SPINE 2 OR 3VW (07/12/2019 11:24 AM CDT) Anatomical Region Laterality Modality Spine Radiographic Radha ging 07/12/2019 11:3 0 AM CDT Impressions 07/13/2019 8:42 AM CDT IMPRESSION: Postoperative changes from spinal fusions, unchanged in alignment. Dictated by Blaine Santos MD (radiology physician). Dr. AL Barnes MD have personally reviewed [...] in alignment. Dictated by Blaine Santos MD (radiology physician). Dr. AL Barnes MD have personally reviewed and interpreted this examination/study. This report was electronically signed by AL LAWTON MD on07/13/2019 8:42 AM . Kamron Corrigan MD DIAGNOSTIC I MAGING ORDERABLES documented in this encounter Visit Diagnoses Diagnosis Central cord syndrome, initial encounter (HCC) documented in this encounter Care Teams Reconciliation Coordinator Relationship Specialty Start Date End Date Ilan Pearson MD [address] [place] [phone] PCP - General Family Medicine 05/25/19 documented as of this encounter
--- OUTSIDE RECORDS SUMMARY | 2024-02-27 10:40 | XMS_ITS | Encounter Summary ---
Author Organization [facility] Health Address [address] [facility] [place] [address] Care Team Providers Care Electrician Maintenance Name Role Phone Ilan Pearson MD Primary Care Provider [phone] Encounter Details Date Type Department Care Team (Late st Contact Info) Description 11/22/2019 11:50 AM CDT - 11/22/2019 11:59 PM CDT Hospital Encounter [facility] DIAGNOSTIC RAD [facility] [address] [facility] [place] [address] French Kim MD [address] [facility] [address] [place] [phone] Discharge Disposition: Home or Self Care [...] 3 times daily 50 capsule 1 11/02/2019 documented as of this encounter Plan of Treatment Not on file documented as of this encounter Procedures Procedure Name Priority Date/Time Associated Diagnosis Comments XR CERVICAL SPINE 2 OR 3VW Routine 11/22/2019 12:00 PM CDT S/P cervical spinal fusion documented in this encounter Results * XR CERVICAL SPINE 2 OR 3VW (11/22/2019 12:00 PM CDT) Anatomical Region Laterality Modality Spine Radiographic Radha ging 11/22/2019 1:27 PM CDT Impressions 11/22/2019 1:31 PM CDT IMPRESSION: Instrumented cervical spinal fusion, unchanged in alignment. This report was electronically signed by AL LAWTON MD ??on 11/22/2019 1:31 PM . Narrative 11/22/2019 1:31 PM CDT Exam: ??XR CERVICAL SPINE 2 VW History: ??Z98.1: S/P cervical spinal fusion Comparison: 08/23/2019 cervical spine radiographs. 05/25/[address] Findings: Instrumented cervical spinal fusion is present including posterior rods and screws at C2-C5 with C3 and C4 laminectomies, and an anterior plate, screws, and interbody grafts at C4-C7. The instrumentation is intact and the osseous alignment is unchanged. A previously reported C4 posterior element fracture is not well visualized. Procedure Note Al Lawton MD - 11/22/2019 Exam: XR CERVICAL SPINE 2 VW History: Z98.1: S/P cervical spinal fusion Comparison: 08/23/2019 cervical spine radiographs. 05/25/[address] Findings: Instrumented cervical spinal fusion is present including posterior rods and screws at C2-C5 with C3 and C4 laminectomies, and an anterior plate, screws, and interbody grafts at C4-C7. The instrumentation is intact and the osseous alignment is unchanged. A previously reported C4 posterior element fracture is not well visualized. IMPRESSION: Instrumented cervical spinal fusion, unchanged in alignment. This report was electronically signed by AL LAWTON MD on11/22/2019 1:31 PM . French Kim MD DIAGNOSTIC IMAGING O RDERABLES documented in this encounter Visit Diagnoses Diagnosis S/P cervical spinal fusion Arthrodesis status documented in this encounter Care Teams Electrician Maintenance Relationship Specialty Start Date End Date Ilan Pearson MD [address] [place] [id number] PCP - General Family Medicine 05/25/19 documented as of this encounter
--- OUTSIDE RECORDS SUMMARY | 2024-02-27 10:40 | XMS_ITS | Encounter Summary ---
Author Organization [facility] Health Address [address] [facility] [place] [address] Care Team Providers Care Reclamation Supervisor Name Role Phone Ilan Pearson MD Primary Care Provider [phone] Encounter Details Date Type Department Care Team (Late st Contact Info) Description 01/10/2020 11:00 AM SHOE SALESPERSON Office Visit [facility] [address] [place] [phone] Almita Feliciano, METAL SLITTER [address] [place] [address] [place] [phone] Oropharyngeal dysphagia (Primary Dx); Dysphagia, unspecified type; Vocal cord paralysis; S/P cervical spinal fusion Social History Tobacco [...] this encounter Progress Notes * Almita Vo, METAL SLITTER - 01/11/2020 9:25 AM CST Follow-up for Modified Barium Swallow Study: Swallow therapy Diagnosis: Dysphagia Chief Complaint: Difficulty Swallowing Ajit Tyler returns today to review the Modified Barium Swallow Study. We reviewed the recordedexam, analysis, and specific recommendations. Recommendations are as follows: Continue with current diet. Begin swallowing exercises 3x per day.. Patient verbalized understanding. No barriers to learning. Time spent in counselin minutes Plan: Return in ~8 week for follow-up. Almita Vo MA, CCC-METAL SLITTER, [facility] Speech Language Pathologist Department of Otolaryngology- Head and Neck Surgery SALESPERSON documented in this encounter Plan of Treatment Not on file documented as of this encounter Visit Diagnoses Diagnosis Oropharyngeal dysphagia- Primary Dysphagia, oropharyngeal phase Dysphagia, unspecified type Vocal cord paralysis Paralysis of vocal cords or larynx, unspecified S/P cervical spinal fusion Arthrodesis status documented in this encounter Care Teams Reclamation Supervisor Relationship Specialty Start Date End Date Ilan Pearson MD [address] [place] [id number] PCP - General Family Medicine 05/25/19 documented as of this encounter
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
--- OUTSIDE RECORDS SUMMARY | 2024-02-27 10:40 | XMS_ITS | Encounter Summary ---
Author Organization [facility] Address [address] [place] [address] Care Team Providers Care Manager Hydraulic Name Role Phone Ilan Pearson MD Primary Care Provider [phone] Encounter Details Date Type Department Care Team (Latest Contact Info) Description 05/31/2019 4:55 PM CDT - 06/06/2019 2:33 PM CDT Hospital Encounter [address] [address] [place] [address] [place] [address] Rehabilitation Discharge Disposition: Other Facility Not Defined Elsewhere Social History Tobacco Use Types Packs/Day Years [...] as of this encounter Plan of Treatment Scheduled Orders Name Type Priority Associated Diagnoses Orde r Schedule EKG 12-LEAD ECG Routine Chest pain at rest ONCE for 1 Occurrences starting 06/03/2019 until 06/03/2019 documented as of this encounter Procedures Procedure Name Priority Date/Time Associated Diagnosis Comments SARS-COV-2 (COVID-19) IN HOUSE STAT 06/06/2019 1:01 PM CDT RESPIRATORY PATHOGEN PANEL BY PCR STAT 06/06/2019 1:01 PM CDT documented in this encounter Results * SARS-COV-2 (COVID-19) IN HOUSE (06/06/2019 1:01 PM CDT) COVID-19 PCR Not detected Not detected, Invalid 06/07/2019 6:09 AM CDT [facility] Microbiology SPECIMEN FROM NASOPHARYNGEAL STRUCTURE / Unknown 06/06/2019 1:01 PM CDT 06/06/2019 1:01 PM CDT Narrative [facility] - 06/07/2019 6:09 AM CDT This Real Time RT-PCR assay was developed and its performance characteristics determined by [facility]. This test has been authorized [...] Sousa MD LAB - MICROBIOLOGY O RDERABLES [facility] [address] [place] [address], [facility] [phone] * RESPIRATORY PATHOGEN PANEL BY PCR (06/06/2019 1:01 PM CDT) Adenovirus PCR Not detected Not detected, Invalid, Indeterminate 06/06/2019 8:32 PM T [facility] Coronavirus PCR Not detected Not detected, Invalid, Indeterminate 06/06/2019 8:32 PM T [facility] Human Metapneumovirus PCR Not detected Not detected, Invalid, Indeterminate 06/06/2019 8:32 PM [facility] Human Rhinovirus/Entero virus PCR Not detected Not detected, Invalid, Indeterminate 06/06/2019 8:32 PM [facility] Influenza A PCR Not detected Not detected, Equivocal, Invalid, Indeterminate 06/06/2019 8:32 PM T [facility] Influenza B PCR Not detected Not detected, Invalid, Indeterminate 06/06/2019 8:32 PM T [facility] Parainfluenza Virus 1 PCR Not detected Not detected, Invalid, Indeterminate 06/06/2019 8:32 PM T [facility] Parainfluenza Virus 2 PCR Not detected Not detected, Invalid, Indeterminate 06/06/2019 8:32 PM [facility] Parainfluenza Virus 3 PCR Not detected Not detected, Invalid, Indeterminate 06/06/2019 8:32 PM T [facility] Parainfluenza Virus 4 PCR Not detected Not detected, Invalid, Indeterminate 06/06/2019 8:32 PM [facility] Respiratory Syncytial Virus PCR Not detected Not detected, Invalid, Indeterminate 06/06/2019 8:32 PM T [facility] Bordetella pertussis PCR Not detected Not detected, Invalid 06/06/2019 8:32 PM [facility] Chlamydia pneumoniae PCR Not detected Not detected, Invalid, Indeterminate 06/06/2019 8:32 PM [facility] Mycoplasma pneumoniae PCR Not detected Not detected, Invalid, Indeterminate 06/06/2019 8:32 PM [facility] Microbiology SPECIMEN FROM NASOPHARYNGEAL STRUCTURE / Unknown 06/06/2019 1:01 PM CDT 06/06/2019 1:01 PM CDT [facility] - 06/06/2019 8:32 PM CDT This test is able to detect the following human coronaviruses: HKU1, NL63, 229E, and OC43. It will NOT detect 2019 Novel Coronavirus (2019-nCoV). If 2019-nCoV is suspected contact Infection Prevention for isolation and testing guidance. Chris Sousa MD LAB - MICROBIOLOGY O RDERABLES [facility] [address] [place] [address], [facility] [phone] documented in this encounter Visit Diagnoses Diagnosis Chest pain at rest- Primary Chest pain, unspecified documented in this encounter Additional Health Concerns Infection Onset Date Last Indicated Resolved Time COVID-19 Under Investigation 06/06/2019 06/07/2019 06/07/2019 6:09 AM CDT documented as of this encounter Care Teams Manager Hydraulic Relationship Specialty Start Date End Date Ilan Pearson MD [address] [place] [phone] PCP - General Family Medicine 05/25/19 documented as of this encounter
--- OUTSIDE RECORDS SUMMARY | 2024-02-27 10:40 | XMS_ITS | Encounter Summary ---
Author Organization [facility] Address [address] [place] [address] Care Team Providers Care Dictating Machine Typist Name Role Phone Ilan Pearson MD Primary Care Provider [phone] Encounter Details Date Type Department Care Team (Latest Contact Info) Description 06/09/2019 4:28 PM CDT - 07/08/2019 2:10 PM CDT Hospital Encounter [facility] [address] [place], [place] [id number] [place] [address] [place] [address] Rehabilitation Discharge Disposition: Home or Self Care Social [...] on filedocumented in this encounter Care Teams Dictating Machine Typist Relationship Specialty Start Date End Date Ilan Pearson MD [address] [place] [id number] PCP - General Family Medicine 05/25/19 documented as of this encounter
--- OUTSIDE RECORDS SUMMARY | 2024-02-27 10:40 | XMS_ITS | Encounter Summary ---
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 x10E9/L 06/07/2019 3:44 AM CDT [facility] Basophils Absolute 0.03 0 - 0.08 x10E9/L 06/07/2019 3:44 AM CDT [facility] Immature Granulocytes Absolute 0.36(H) 0.00 - 0.06 x10E9/L 06/07/2019 3:44 AM CDT [facility] nRBC Auto 0 /100 WBC 06/07/2019 3:44 AM T [facility] Blood BLOOD SPECIMEN / Unknown Venipuncture / Unknown 06/07/2019 3:25 AM CDT 06/07/2019 3:39 AM CDT Callie Estrada MD LAB - HEMATOLOGY ORD ERABLES [facility] [address] [place] [address] * (ABNORMAL) BASIC METABOLIC PANEL (CALCIUM TOTAL) (06/07/2019 3:25 AM CDT) Glucose 92 70 - 105 mg/dL 06/07/2019 3:58 AM [facility] Sodium 131(L) 136 - 145 mmol/L 06/07/2019 3:58 AM [facility] Potassium 2.7(L) 3.5 - 5.1 mmol/L 06/07/2019 3:58 AM [facility] Chloride 95(L) 98 - 107 mmol/L 06/07/2019 3:58 AM [facility] CO2 24 23 - 31 mmol/L 06/07/2019 3:58 AM [facility] Calcium 7.9(L) 8.4 - 10.4 mg/dL 06/07/2019 3:58 AM T [facility] Anion Gap 12 8 - 16 mmol/L 06/07/2019 3:58 AM [facility] BUN 13 8.4 - 25.7 mg/dL 06/07/2019 3:58 AM T [facility] Creatinine 0.68(L) 0.72 - 1.25 mg/dL 06/07/2019 3:58 AM [facility] eGFR by MDRD >60 >60 mL/min/1.7 3m2 06/07/2019 3:58 AM CDT [facility] eGFR by MDRD >60 >60 mL/min/1.7 3m2 06/07/2019 3:58 AM CDT [facility] Blood BLOOD SPECIMEN / Unknown Venipuncture / Unknown 06/07/2019 3:25 AM CDT 06/07/2019 3:39 AM CDT Callie Estrada MD LAB - CHEMISTRY ALEXIS DEVRIES [facility] Organization Address City/State/ZIP Co de Phone Number [facility] [address] [place] [address] documented in this encounter Visit Diagnoses Diagnosis Acute frontal sinusitis- Primary Sepsis, due to unspecified organism, unspecified whether acute organ dysfunction present (HCC) Pneumonia due to infectious organism, unspecified laterality, unspecified part of lung Sepsis (HCC) Pneumonia due to infectious organism Central cord syndrome (HCC) Unspecified site of spinal cord injury without evidence of spinal bone injury documented in this encounter Administered Medications Inactive Administered Medications - up to 3 most recent administrations Medication Order MAR Action Action Date Dose Rate Site 0.9% NaCl flush bag at 20 mL/hr, 20 mL, CONTINUOUS PRN, Starting on Thu06/07/19 at 0518, Until Thu06/09/19 at 1733, - Normal Saline Back-Up Flush Bag for patients requiring a compatible solution for intravenous piggy back, intravenous medication drips, or blood administration when there is no primary solution ordered. - Use a 250 mL NS bag., Use for: IVPB flush $ New Bag/Syringe 06/07/2019 5:36 AM CDT 20 mL 20 mL/hr 0.9% NaCl injection 1-10 mL 1-10 mL, Intracatheter, PRN, Other, peripheral line flush, Starting on Thu06/07/19 at 0028, Until Thu06/09/19 at 1733, Flush peripheral IV catheter with 1-10 mL of normal saline before and after medications and prn to clear blood from the line or to verify patency. 0.9% NaCl injection 3 mL 3 mL, Intracatheter, EVERY 8 HOURS, First dose on Thu06/07/19 at 0100, Until Discontinued, Flush peripheral IV catheter with 3 mL of normal saline every 8 hours. $ Given 06/09/2019 6:15 AM CDT 3 mL $ Given 06/08/2019 8:49 PM CDT 3 mL $ Given 06/08/2019 1:44 PM CDT 3 mL 0.9% NaCl with potassium chloride 20 mEq infusion at 75 mL/hr, Intravenous, CONTINUOUS, Starting on Thu06/07/19 at 0145, Until Thu06/09/19 at 1733 $ New Bag/Syringe 06/08/2019 10:02 PM CDT 75 mL/hr $ New Bag/Syringe 06/08/2019 11:25 AM CDT 75 mL /hr $ New Bag/Syringe 06/08/2019 2:16 AM CDT 75 mL/ hr acetaminophen (TYLENOL) tablet 650 mg 650 mg, Oral, EVERY 6 HOURS PRN, Mild Pain, Starting on Thu06/07/19 at 0028, Until Bertha 06/09/19 at 1733 $ Given 06/08/2019 8:51 PM CDT 650 mg apixaban (ELIQUIS) tablet 2.5 mg 2.5 mg, Oral, 2 TIMES DAILY, 70 doses, First dose on Thu06/08/19 at 1400, Last dose on Thu07/12/19 at 2100 $ Given 06/09/2019 9:58 AM CDT 2.5 mg $ Given 06/08/2019 8:49 PM CDT 2.5 mg $ Given 06/08/2019 1:45 PM CDT 2.5 mg cefdinir (OMNICEF) capsule 300 mg 300 mg, Oral, EVERY 12 HOURS, First dose on Thu06/08/19 at 1400, Until Discontinued, Indication for anti-infective therapy: Suspected infection, Site of anti-infective therapy: Upper Respiratory $ Given 06/09/2019 9:58 AM CDT 300 mg $ Given 06/08/2019 8:49 PM CDT 300 mg $ Given 06/08/2019 1:44 PM CDT 300 mg cefepime (MAXIPIME) 2,000 mg in 50 mL IVPB 2,000 mg (2 g), at 100 mL/hr, Intravenous, EVERY 8 HOURS, First dose on Thu06/07/19 at 0600, Until Discontinued, Indication for anti-infective therapy: Suspected infection, Site of anti-infective therapy: Lower Respiratory $ New Bag/Syringe 06/08/2019 5:40 AM CDT 2,000 mg 100 mL/hr $ New Bag/Syringe 06/07/2019 11:37 PM CDT 2,000 mg 100 m L/hr $ New Bag/Syringe 06/07/2019 1:24 PM CDT 2,000 mg 100 mL /hr heparin injection 5,000 Units 5,000 Units, Subcutaneous, EVERY 8 HOURS, First dose on Thu06/07/19 at 0100, Until Discontinued $ Given 06/08/2019 11:19 AM CDT 5,000 Units Abdominal Tissue $ Given 06/08/2019 2:37 AM CDT 5,000 Units A bd Left Lower Quadrant $ Given 06/07/2019 6:30 PM CDT 5,000 Units A bdominal Tissue loperamide (IMODIUM) capsule 2 mg 2 mg, Oral, 4 TIMES DAILY PRN, Diarrhea, Starting on Thu06/07/19 at 1221, Until Thu06/09/19 at 1733, Max dose 16mg/day $ Given 06/08/2019 6:24 PM CDT 2 mg $ Given 06/07/2019 1:02 PM CDT 2 mg montelukast (SINGULAIR) tablet 10 mg 10 mg, Oral, DAILY, First dose on Thu06/07/19 at 0900, Until Discontinued $ Given 06/09/2019 9:58 AM CDT 10 mg $ Given 06/08/2019 7:46 AM CDT 10 mg $ Given 06/07/2019 9:13 AM CDT 10 mg ondansetron (disintegrating) (ZOFRAN ODT) tablet 4 mg 4 mg, Oral, EVERY 6 HOURS PRN, Nausea/Vomiting, Starting on Thu06/07/19 at 0028, Until Thu06/09/19 at 1733, Allow tablet to dissolve on the tongue ondansetron (ZOFRAN) injection 4 mg 4 mg, Intravenous, EVERY 6 HOURS PRN, Nausea/Vomiting, Starting on Thu06/07/19 at 0028, Until Thu06/09/19 at 1733, Administer IV if patient is NPO, actively vomiting, or unable to swallow. phenol (CHLORASEPTIC) 1.4 % liquid Oral, PRN, Sore Throat, Starting on Thu06/08/19 at 1458, Until Thu06/09/19 at 1733, . WASTE DISPOSAL INSTRUCTIONS: Black Bin Disposal required. $ Given 06/08/2019 3:39 PM CDT potassium chloride ER (KLOR-CON) tablet 40 mEq 40 mEq, Oral, ONCE, 1 dose, On Thu06/07/19 at 0130, Swallow whole, do not crush, chew or break. $ Given 06/07/2019 1:36 AM CDT 40 mEq potassium chloride ER (KLOR-CON) tablet 40 mEq 40 mEq, Oral, EVERY 4 HOURS, 3 doses, First dose on Thu06/08/19 at 1200, Last dose on Thu06/08/19 at 2000, Swallow whole, do not crush, chew or break. $ Given 06/08/2019 8:49 PM CDT 40 mEq $ Given 06/08/2019 3:39 PM CDT 40 mEq $ Given 06/08/2019 11:19 AM CDT 40 mEq potassium chloride ER (KLOR-CON) tablet 40 mEq 40 mEq, Oral, EVERY 3 HOURS, 3 doses, First dose on Thu06/09/19 at 0800, Last dose on Thu06/09/19 at 1400, Swallow whole, do not crush, chew or break. $ Given 06/09/2019 3:32 PM CDT 40 mEq $ Given 06/09/2019 9:58 AM CDT 40 mEq saliva substitute Mouth/Throat, PRN, Dry Mouth, Starting on Thu06/07/19 at 0117, Until Thu06/09/19 at 1733 $ Given 06/07/2019 1:04 PM CDT 1 mL throat lozenge 1 lozenge 1 lozenge, Oral, EVERY 2 HOURS PRN, Sore Throat, Starting on Thu06/08/19 at 1458, Until Thu06/09/19 at 1733 vancomycin (VANCOCIN) 1,250 mg in 275 mL IVPB 1,250 mg, at 220 mL/hr, Intravenous, EVERY 12 HOURS, First dose on Thu06/07/19 at 0600, Until Discontinued, Indication for anti-infective therapy: Suspected infection, Site of anti-infective therapy: Lower Respiratory $ New Bag/Syringe 06/07/2019 6:47 PM CDT 1,250 mg 220 mL/hr $ New Bag/Syringe 06/07/2019 6:37 AM CDT 1,250 mg 220 mL /hr vancomycin (VANCOCIN) 1,250 mg in 275 mL IVPB 1,250 mg, at 220 mL/hr, Intravenous, EVERY 8 HOURS, First dose (after last modification) on Thu06/08/19 at 0600, Until Discontinued, Indication for anti-infective therapy: Suspected infection, Site of anti-infective therapy: Lower Respiratory $ New Bag/Syringe 06/08/2019 6:15 AM CDT 1,250 mg 220 mL/hr documented in this encounter Active and Recently Administered Medications Times are shown in CDT. Scheduled Medication Order 06/07/2019 06/08/2019 06/09/2019 0.9% NaCl injection 3 mL(Linked Group 1) 3 mL, Intracatheter, EVERY 8 HOURS, First dose on Thu06/07/19 at 0100, Until Discontinued, Flush peripheral IV catheter with 3 mL of normal saline every 8 hours. 0138 ($ Given - Provider: Renata Hodgson RN)0631 (Not Administered - Provider: Renata Hodgson RN - Reason: IV Currently Infusing)1223 ($ Given - Provider: Kadie Garcia RN)2331 ($ Given - Provider: Reta Berkowitz RN) 0536 ($ Given - Provider: Reta Berkowitz RN)1344 ($ Given - Provider: Kadie Garcia RN)2049 ($ Given - Provider: Martha Lai RN) 0615 ($ Given - Provider: Martha Lai RN)1504 (Not Administered - Provider: Mandy Light RN - Reason: Discontinued by physician) apixaban (ELIQUIS) tablet 2.5 mg 2.5 mg, Oral, 2 TIMES DAILY, 70 doses, First dose on Thu06/08/19 at 1400, Last dose on Thu07/12/19 at 2100 1345 ($ Given - Provider: Kadie Garcia RN)2049 ($ Given - Provider: Martha Lai RN) 0958 ($ Given - Provider: Mandy Light RN) bisacodyl (DULCOLAX) suppository 10 mg 10 mg, Rectal, DAILY, First dose on Thu06/07/19 at 0900, Until Discontinued 0852 (Not Administered - Provider: Evelia Voss RN - Reason: Patient Condition - Comment: having loosse stool) 0744 (Not Administered - Provider: Kadie Garcia RN - Reason: See Comments - Comment: BM several times during the night and yesterday) 0957 (Not Administered - Provider: Mandy Light RN - Reason: Refused-Patient) calcium carbonate (TUMS) chew tablet 1 tablet 1 tablet, Oral, 2 TIMES DAILY WITH MEALS, First dose on Thu06/07/19 at 0800, Until Discontinued 0912 (Not Administered - Provider: Evelia Voss RN - Reason: Medication not available)1829 (Not Administered - Provider: Kadie Garcia RN - Reason: Refused-Patient) 0745 (Not Administered - Provider: Kadie Garcia RN - Reason: Refused-Patient)1819 (Not Administered - Provider: Kadie Garcia RN - Reason: Refused-Patient) 0953 (Not Administered - Provider: Mandy Light RN - Reason: Refused-Patient) cefdinir (OMNICEF) capsule 300 mg 300 mg, Oral, EVERY 12 HOURS, First dose on Thu06/08/19 at 1400, Until Discontinued, Indication for anti-infective therapy: Suspected infection, Site of anti-infective therapy: Upper Respiratory 1344 ($ Given - Provider: Kadie Garcia RN)2049 ($ Given - Provider: Martha Lai RN) 0958 ($ Given - Provider: Mandy Light RN) cefepime (MAXIPIME) 2,000 mg in 50 mL IVPB (CANCELED) 2,000 mg (2 g), at 100 mL/hr, Intravenous, EVERY 8 HOURS, First dose on Thu06/07/19 at 0600, Until Discontinued, Indication for anti-infective therapy: Suspected infection, Site of anti-infective therapy: Lower Respiratory 0537 ($ New Bag/Syringe - Provider: Renata Hodgson RN)0607 (Stopped - Provider: Renata Hodgson RN)1324 ($ New Bag/Syringe - Provider: Kadie Garcia RN)1400 (Stopped - Provider: Kadie Garcia RN)2337 ($ New Bag/Syringe - Provider: Reta Berkowitz RN) 0017 (Stopped - Provider: Reta Berkowitz RN)0540 ($ New Bag/Syringe - Provider: Reta Berkowitz RN)0616 (Stopped - Provider: Reta Berkowitz RN) docusate sodium (COLACE) capsule 100 mg 100 mg, Oral, DAILY, First dose on Thu06/07/19 at 0900, Until Discontinued 08 (Not Administered - Provider: Evelia Voss RN - Reason: Patient Condition - Comment: having loose stool) 0745 (Not Administered - Provider: Kadie Garcia RN - Reason: See Comments - Comment: several BM's yesterday.) 0955 (Not Administered - Provider: Mandy Light RN - Reason: Refused-Patient) heparin injection 5,000 Units (CANCELED) 5,000 Units, Subcutaneous, EVERY 8 HOURS, First dose on Thu06/07/19 at 0100, Until Discontinued 0136 ($ Given - Provider: Renata Hodgson RN)1000 ($ Given - Provider: Kadie Garcia RN)1830 ($ Given - Provider: Kadie Garcia RN) 0237 ($ Given - Provider: Reta Berkowitz RN)1119 ($ Given - Provider: Kadie Garcia RN) montelukast (SINGULAIR) tablet 10 mg 10 mg, Oral, DAILY, First dose on Thu06/07/19 at 0900, Until Discontinued 09 ($ Given - Provider: Evelia Voss RN - Comment: unable to scan in room med sheet read only able to chart manually in [facility]) 0746 ($ Given - Provider: Kadie Garcia RN) 0958 ($ Given - Provider: Mandy Light RN) polyethylene glycol 3350 (MIRALAX) packet 17 g 17 g, Oral, DAILY, First dose on Thu06/07/19 at 0900, Until Discontinued, Mix in 8 ounces of water, juice, soda, coffee or tea prior to administration 08 (Not Administered - Provider: Evelia Voss RN - Reason: Patient Condition - Comment: having loose stool) 0745 (Not Administered - Provider: Kadie Garcia RN - Reason: Refused-Patient) 09 (Not Administered - Provider: Mandy Light RN - Reason: Refused-Patient) potassium chloride ER (KLOR-CON) tablet 40 mEq (COMPLETED) 40 mEq, Oral, ONCE, 1 dose, On Thu06/07/19 at 0130, Swallow whole, do not crush, chew or break. 0136 ($ Given - Provider: Renata Hodgson RN) potassium chloride ER (KLOR-CON) tablet 40 mEq (COMPLETED) 40 mEq, Oral, EVERY 4 HOURS, 3 doses, First dose on Thu06/08/19 at 1200, Last dose on Thu06/08/19 at 2000, Swallow whole, do not crush, chew or break. 1119 ($ Given - Provider: Kadie Garcia RN)1539 ($ Given - Provider: Kadie Garcia RN)2049 ($ Given - Provider: Martha Lai RN) potassium chloride ER (KLOR-CON) tablet 40 mEq (CANCELED) 40 mEq, Oral, EVERY 3 HOURS, 3 doses, First dose on Thu06/09/19 at 0800, Last dose on Thu06/09/19 at 1400, Swallow whole, do not crush, chew or break. 0958 ($ Given - Provider: Mandy Light RN)1505 (Not Administered - Provider: Mandy Light RN - Reason: Discontinued by physician)1532 ($ Given - Provider: Mandy Light RN) vancomycin (VANCOCIN) 1,250 mg in 275 mL IVPB (CANCELED) 1,250 mg, at 220 mL/hr, Intravenous, EVERY 12 HOURS, First dose on Thu06/07/19 at 0600, Until Discontinued, Indication for anti-infective therapy: Suspected infection, Site of anti-infective therapy: Lower Respiratory 0637 ($ New Bag/Syringe - Provider: Rentaa Hodgson RN)0956 (Stopped - Provider: Kadie Garcia RN)1847 ($ New Bag/Syringe - Provider: Kadie Garcia RN)2113 (Stopped - Provider: Reta Berkowitz RN) vancomycin (VANCOCIN) 1,250 mg in 275 mL IVPB (CANCELED) 1,250 mg, at 220 mL/hr, Intravenous, EVERY 8 HOURS, First dose (after last modification) on Thu06/08/19 at 0600, Until Discontinued, Indication for anti-infective therapy: Suspected infection, Site of anti-infective therapy: Lower Respiratory 0615 ($ New Bag/Syringe - Provider: Reta Berkowitz RN)0740 (Stopped - Provider: Kadie Garcia, RN) Continuous Medication Order 06/07/2019 06/08/2019 06/09/2019 0.9% NaCl with potassium chloride 20 mEq infusion at 75 mL/hr, Intravenous, CONTINUOUS, Starting on e 06/07/19 at 0145, Until Bertha 06/09/19 at 1733 0142 ($ New Bag/Syringe - Provider: Renata Hodgson, HIRAL)1224 (Restarted - Provider: Kadie Garcia, RN)1401 (Restarted - Provider: Kadie Garcia, RN) 0216 ($ New Bag/Syringe - Provider: Reta Berkowitz RN)1125 ($ New Bag/Syringe - Provider: Kadie Garcia, RN)2202 ($ New Bag/Syringe - Provider: Martha Lai, RN) PRN Medication Order 06/07/2019 06/08/2019 06/09/2019 0.9% NaCl flush bag at 20 mL/hr, 20 mL, CONTINUOUS PRN, Starting on Thu06/07/19 at 0518, Until Bertha 06/09/19 at 1733, - Normal Saline Back-Up Flush Bag for patients requiring a compatible solution for intravenous piggy back, intravenous medication drips, or blood administration when there is no primary solution ordered. - Use a 250 mL NS bag., Use for: IVPB flush 0536 ($ New Bag/Syringe - Provider: Renata Hodgson, HIRAL) 0.9% NaCl injection 1-10 mL(Linked Group 1) 1-10 mL, Intracatheter, PRN, Other, peripheral line flush, Starting on Thu06/07/19 at 0028, Until Bertha 06/09/19 at 1733, Flush peripheral IV catheter with 1-10 mL of normal saline before and after medications and prn to clear blood from the line or to verify patency. acetaminophen (TYLENOL) tablet 650 mg 650 mg, Oral, EVERY 6 HOURS PRN, Mild Pain, Starting on Thu06/07/19 at 0028, Until Bertha 06/09/19 at 1733 2051 ($ Given - Provider: Martha Lai, HIRAL) acetaminophen (TYLENOL) tablet 650 mg 650 mg, Oral, EVERY 4 HOURS PRN, Fever, For temperature GREATER than 101 , Starting on Thu06/07/19 at 0028, Until Thu06/09/19 at 1733 cyclobenzaprine (FLEXERIL) tablet 5 mg 5 mg, Oral, 3 TIMES DAILY PRN, Muscle Spasms, Starting on Thu06/07/19 at 0117, Until Bertha 06/09/19 at 1733 loperamide (IMODIUM) capsule 2 mg 2 mg, Oral, 4 TIMES DAILY PRN, Diarrhea, Starting on Thu06/07/19 at 1221, Until Thu06/09/19 at 1733, Max dose 16mg/day 1302 ($ Given - Provider: Kadie Garcia RN) 1824 ($ Given - Provider: Kadie Garcia RN) ondansetron (disintegrating) (ZOFRAN ODT) tablet 4 mg(Linked Group 2) 4 mg, Oral, EVERY 6 HOURS PRN, Nausea/Vomiting, Starting on Thu06/07/19 at 0028, Until Thu06/09/19 at 1733, Allow tablet to dissolve on the tongue ondansetron (ZOFRAN) injection 4 mg(Linked Group 2) 4 mg, Intravenous, EVERY 6 HOURS PRN, Nausea/Vomiting, Starting on Thu06/07/19 at 0028, Until Bertha 06/09/19 at 1733, Administer IV if patient is NPO, actively vomiting, or unable to swallow. oxyCODONE (immediate release) (ROXICODONE) tablet 5 mg 5 mg, Oral, EVERY 4 HOURS PRN, Moderate Pain, Starting on Thu06/07/19 at 0118, Until Thu06/09/19 at 1733 phenol (CHLORASEPTIC) 1.4 % liquid Oral, PRN, Sore Throat, Starting on Thu06/08/19 at 1458, Until Thu06/09/19 at 1733, . WASTE DISPOSAL INSTRUCTIONS: Black Bin Disposal required. 2104 ($ Given - Provider: Kadie Garcia RN) polyethylene glycol 3350 (MIRALAX) packet 17 g 17 g, Oral, DAILY PRN, Constipation, Starting on Thu06/07/19 at 0028, Until Thu06/09/19 at 1733, Mix in 8 ounces of water, juice, soda, coffee or tea prior to administration saliva substitute Mouth/Throat, PRN, Dry Mouth, Starting on Thu06/07/19 at 0117, Until Thu06/09/19 at 1733 1304 ($ Given - Provider: Kadie Garcia RN) throat lozenge 1 lozenge 1 lozenge, Oral, EVERY 2 HOURS PRN, Sore Throat, Starting on Thu06/08/19 at 1458, Until Thu06/09/19 at 1733 Linked Groups Order Group 1: SALINE LOCK, INSERT AND MAINTAIN (CANCELED) Routine, CONTINUOUS, Starting on Thu06/07/19 at 0030, Until Specified, New collection And 0.9% NaCl injection 3 mLJump to med 3 mL, Intracatheter, EVERY 8 HOURS, First dose on Thu06/07/19 at 0100, Until Discontinued, Flush peripheral IV catheter with 3 mL of normal saline every 8 hours. And 0.9% NaCl injection 1-10 mLJump to med 1-10 mL, Intracatheter, PRN, Other, peripheral line flush, Starting on Thu06/07/19 at 0028, Until Thu06/09/19 at 1733, Flush peripheral IV catheter with 1-10 mL of normal saline before and after medications and prn to clear blood from the line or to verify patency. Group 2: ondansetron (disintegrating) (ZOFRAN ODT) tablet 4 mgJump to med 4 mg, Oral, EVERY 6 HOURS PRN, Nausea/Vomiting, Starting on Thu06/07/19 at 0028, Until Thu06/09/19 at 1733, Allow tablet to dissolve on the tongue Or ondansetron (ZOFRAN) injection 4 mgJump to med 4 mg, Intravenous, EVERY 6 HOURS PRN, Nausea/Vomiting, Starting on Thu06/07/19 at 0028, Until Thu06/09/19 at 1733, Administer IV if patient is NPO, actively vomiting, or unable to swallow. documented in this encounter Additional Health Concerns Infection Onset Date Last Indicated Resolved Time COVID-19 Under Investigation 06/06/2019 06/07/2019 06/07/2019 6:09 AM CDT documented as of this encounter Care Teams Carpenter Repairer Relationship Specialty Start Date End Date Ilan Pearson MD [address] [place] [address] PCP - General Family Medicine 05/25/19 documented as of this encounter
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
--- OUTSIDE RECORDS SUMMARY | 2024-02-27 10:40 | XMS_ITS | Encounter Summary ---
Author Organization [facility] Health Address [address] [facility] [place] [address] Care Team Providers Care Top Lift Scourer Name Role Phone Ilan Pearson MD Primary Care Provider [phone] Reason for Visit * Reason Onset Date Comments Appointment 09/26/2019 Encounter Details Date Type Department Care Team (Late st Contact Info) Description 09/26/2019 Telephone [facility] [address] [phone] Almita Feliciano, OPERATIONS FORESTER [address] [phone] Appointment Social History Tobacco Use Types Packs/Day [...] * Telephone Encounter - Rachna Gunderson - 09/26/2019 2:05 PM CDT Left a message to call and schedule a swallow study with Almita Vo. He prefers a 10am time slot and will be done at [facility]. Referral in [facility]. documented in this encounter Plan of Treatment Not on file documented as of this encounter Visit Diagnoses Not on filedocumented in this encounter Care Teams Top Lift Scourer Relationship Specialty Start Date End Date Ilan Pearson MD [address] [place] [id number] PCP - General Family Medicine 05/25/19 documented as of this encounter
--- OUTSIDE RECORDS SUMMARY | 2024-02-27 10:40 | XMS_ITS | Encounter Summary ---
Author Organization [facility] Health Address [address] [place] [address] Care Team Providers Care Practice Physician Name Role Phone Ilan Pearson MD Primary Care Provider [phone] Encounter Details Date Type Department Care Team (Late st Contact Info) Description 11/22/2019 Orders Only [facility] [address] [facility] [place] [address] French Kim MD [address] [facility] [address] [place] [address] S/P cervical spinal fusion Social History Tobacco [...] No 05/25/2019 documented as of this encounter Plan of [...] encounter Visit Diagnoses Diagnosis S/P cervical spinal fusion- Primary Arthrodesis status S/P cervical spinal fusion Arthrodesis status documented in this encounter Care Teams Practice Physician Relationship Specialty Start Date End Date Ilan Pearson MD [address] [place] [id number] PCP - General Family Medicine 05/25/19 documented as of this encounter
--- OUTSIDE RECORDS SUMMARY | 2024-02-27 10:40 | XMS_ITS | Encounter Summary ---
Author Organization [facility] Health Address [address] [place] [address] Care Team Providers Care Business Continuity Strategy Director Name Role Phone Ilan Pearson MD Primary Care Provider [phone] Reason for Visit * Reason Comments Throat Problem Encounter Details Date Type Department Care Team (Late st Contact Info) Description 01/10/2020 11:15 AM ENVIRONMENTAL JOURNALIST Office Visit [facility] [address] [place] [address] [phone] Ernesto Aggarwal MD [address] [place] [address] [place] [address] Dysphagia, unspecified type (Primary Dx) Social History Tobacco Use Types [...] Sign Reading Time Taken Comments Blood Pressure 103/70 01/10/2020 11:38 AM ENVIRONMENTAL JOURNALIST Pulse 79 01/10/2020 11:38 AM ENVIRONMENTAL JOURNALIST Temperature 36.1 ??C (97 ??F) 01/10/2020 11:38 AM ENVIRONMENTAL JOURNALIST Respiratory Rate - - Oxygen Saturation - - Inhaled Oxygen Concentration - - Weight 69.4 kg (153 lb) 01/10/2020 11:38 AM ENVIRONMENTAL JOURNALIST Height 182.9 cm (6') 01/10/2020 11:38 AM ENVIRONMENTAL JOURNALIST Body Mass Index 20.75 01/10/2020 11:38 AM ENVIRONMENTAL JOURNALIST documented in this encounter Functional Status Functional [...] this encounter Patient Instructions * Patient Instructions* Natali Piedra RN - 01/10/2020 12:19 PM ENVIRONMENTAL JOURNALIST For questions before next appointment, send a message to Dr. Aggarwal or Almita Vo through [employer], Or call our nurse line: [phone]. RONMENTAL JOURNALIST documented in this encounter Progress Notes * Ernesto Aggarwal MD - 01/10/2020 11:51 AM CST History of Present Illness: Ajit is a 59 year old male who presents for evaluation of dysphagia. Has been having problems since his surgery in May. Feels a lot of discomfort in his neck and even pain. Has more difficulty swallowing in bed. Can occasionally clear out some phlegm and his swallowing improves. Past Medical History: Past Medical History: Diagnosis [...] Outpatient Medications Medication Sig Dispense Refill ??? amoxicillin-clavulanate (AUGMENTIN) 400-57 MG/5ML suspension Take 10 mL by mouth 2 times daily with morning and evening meal For 14 days 300 mL 0 ??? celecoxib (CELEBREX) 200 MG capsule [...] was completed and negative except for: Throat: hoarse voice, voice changes, pain or difficulty swallowing, frequent soreness or swelling tender to the touch Physical Examination: BP 103/70 (BP SITE: LEFT ARM, BP POSITION: SITTING, BP CUFF SIZE: 12) Pulse 79 Temp 97 ??F (36.1 ??C) (Temporal) Ht 6' (1.829 m) Wt 153 lb (69.4 kg) BMI 20.75 kg/m2 Body mass index is 20.75 kg/m??. Constitutional: in no apparent distress and [...] asymmetry, or inflammation Septum: Good alignment Turbinates: Juliette, non-edematous, without discharge Mucosa: Juliette, healthy appearing Oral Cavity: No perioral or gingival cyanosis or lesions. Tongue and floor of mouth are normal in appearance Throat: Oropharynx with healthy appearing musosa, no visible drainage, no lesions, uvula midline, soft palate with symmetric mobility Neck: no asymmetry, masses, or scars, supple without significant adenopathy, trachea midline, no thyroid enlargement or irregularity palpated Neuro: non focal, mental status and speech normal, alert and oriented Respiration: unlabored breathing, no audible wheezes or stridor Skin: Skin color, texture normal. No rashes or lesions Procedure Note Endoscopy Type: Laryngoscopy without stroboscopy 87942 Endoscope: Flexible 4mm Scope Anesthesia: Lidocaine 2% [...] pharyngeal wall the midline is relatively adynamic butthe piriforms squeeze bilaterally. The right cord is fully mobile left cord has decreased mobility but there is some appears to be elevation as the vocal cord approximates in the midline and there isan adequate voice. There is a open base to the piriform sinuses however I cannot see the posterior cricoid mucosa clearly nor the cervical esophagus. It is concern that there may be some sticking of the mucosa to the plate in this area and possibly even some erythema or irritation this area. Condition: Stable. Patient tolerated procedure well. Complications: None I was present for the entirety of the procedure. CT Review: Audiogram: Assessment and Plan: Ajit is a 59 year old male with dysphagia Recent MBS Had last spine surgery in May 2019 (posterior plate) The stoma has current symptoms of pain and discomfort noted present for approximately 1 year. He has progressive symptoms of difficulty with swallowing for the most part is on a liquid and soft diet.He struggles with some singing is cake or meat. The examination today shows there is left vocal cord immobility but there is no evidence of aspiration. His recent modified barium swallow shows some irregularity to the mucosa adjacent to the anterior plate on the cervical spine. At this point it is unclear exactly what is the etiology of this gentleman's discomfort and Y is having some progressive dysphagia. There is possibly some abnormality associated with the esophagus and hypopharynx on the anterior plate wall but this cannot be visualized in the in office exam. We arereluctant to do any type of dilation procedure as it may potentially need to exposure the plate. One possibility is it could be some underlying inflammatory changes of the cervical esophagus on the anterior face of the plate and we will address these with a 10 day course of Augmentin and then contact the patient by phone to see if this did improve his symptoms of discomfort. If this doesn't wemay wish to repeat a second course of antibiotics and consider a neurosurgery consult. If it provides no improvement whatsoever we will see if the swallowing exercises which were initiated today by our speech pathologist provide some improvement. The patient will follow-up with me in 6weeks. RONMENTAL JOURNALIST * Echo Chandler - 01/10/2020 11:36 AM CST Review of Systems [facility] reports the following:Throat: hoarse voice, voice changes, pain or difficulty swallowing, frequent soreness or swelling tender to the touch RONMENTAL JOURNALIST documented in this encounter Procedure Notes * Ernesto Aggarwal MD - 01/10/2020 1:11 PM CSTAssociated Order(s): PROC ENDOSCOPY-LARYNX Procedure(s): WA LARYNGOSCOPY,FLEX FIBER,DIAGNOSTIC Pre-Procedure Diagnose(s): Dysphagia, unspecified type Procedure Note Endoscopy Type: Laryngoscopy without stroboscopy [id number] Endoscope: Flexible 4mm Scope Anesthesia: Lidocaine 2% [...] pharyngeal wall the midline is relatively adynamic butthe piriforms squeeze bilaterally. The right cord is fully mobile left cord has decreased mobility but there is some appears to be elevation as the vocal cord approximates in the midline and there isan adequate voice. There is a open base to the piriform sinuses however I cannot see the posterior cricoid mucosa clearly nor the cervical esophagus. It is concern that there may be some sticking of the mucosa to the plate in this area and possibly even some erythema or irritation this area. Condition: Stable. Patient tolerated procedure well. Complications: None I was present for the entirety of the procedure. RONMENTAL JOURNALIST documented in this encounter Plan of Treatment Not on file documented as of this encounter Procedures Procedure Name Priority Date/Time Associated Diagnosis Comments WA LARYNGOSCOPY,FLEX FIBER,DIAGNOSTIC Routine 01/10/2020 1:11 PM ENVIRONMENTAL JOURNALIST Dysphagia, unspecified type documented in this encounter Results * WA LARYNGOSCOPY,FLEX FIBER,DIAGNOSTIC (01/10/2020 1:11 PM ENVIRONMENTAL JOURNALIST) Narrative Ernesto Aggarwal MD - 01/10/2020 1:11 PM ENVIRONMENTAL JOURNALIST Ernesto Aggarwal MD ? 01/10/2020 ??1:12 PM Procedure Note Endoscopy Type: ??Laryngoscopy without stroboscopy [id number] Endoscope: Flexible 4mm Scope Anesthesia: Lidocaine 2% [...] documented in this encounter Visit Diagnoses Diagnosis Dysphagia, unspecified type- Primary documented in this encounter Care Teams Business Continuity Strategy Director Relationship Specialty Start Date End Date Ilan Pearson MD [address] [place] [id number] PCP - General Family Medicine 05/25/19 documented as of this encounter
--- OUTSIDE RECORDS SUMMARY | 2024-02-27 10:40 | XMS_ITS | Encounter Summary ---
Author Organization [facility] Health Address [address] [place] [address] Care Team Providers Care Party Plan Sales Consultant Name Role Phone Ilan Paerson MD Primary Care Provider [phone] Encounter Details Date Type Department Care Team (Latest Contact Info) Description 10/03/2019 Travel Social History Tobacco Use Types Packs/Day Years [...] on filedocumented in this encounter Care Teams Party Plan Sales Consultant Relationship Specialty Start Date End Date Ilan Pearson MD [address] [place] [id number] PCP - General Family Medicine 05/25/19 documented as of this encounter
--- OUTSIDE RECORDS SUMMARY | 2024-02-27 10:40 | XMS_ITS | Encounter Summary ---
Author Organization [facility] Health Address [address] [place] [address] Care Team Providers Care Lock Up Worker Name Role Phone Ilan Pearson MD Primary Care Provider [phone] Reason for Visit * Radiology Services (Routine) - Closed Specialty Diagnoses / Procedures Referred By Contac t Referred To Contact Fluoroscopy Diagnoses Dysphagia, unspecified type Procedures FL SWALLOWING FUNCTION STUDY Ernesto Aggarwal MD [address] [place] [address] Referral ID Status Reason Start Date Expiration Date Visits Re quested Visits Authorized [id number] Closed 09/22/2019 09/21/2020 1 1 Encounter Details Date Type Department Care Team (Latest Contact Info) Description 11/14/2019 12:32 PM CDT - 11/14/2019 11:59 PM T Hospital Encounter [facility] DI[facility]NOSTIC RAD [address] [place] [address] Ernesto Aggarwal MD [address] [place] [address] Discharge Disposition: Home or Self Care Social [...] Procedure Name Priority Date/Time Associated Diagnosis Comments FL SWALLOWING FUNCTION STUDY Routine 11/14/2019 2:07 PM CDT Dysphagia, unspecified type documented in this encounter Visit Diagnoses Not on filedocumented in this encounter Administered Medications Inactive Administered Medications - up to 3 most recent administrations Medication Order MAR Action Action Date Dose Rate Site barium (VARIBAR THIN) 40 % liquid SUSR 20 mL 20 mL, Oral, ONCE, 1 dose, On Thu11/14/19 at 1415 $ Given - Contrast 11/14/2019 1:57 PM CDT 60 mL barium (Varibar) 40 % paste PSTE Oral, ONCE, 1 dose, On Thu11/14/19 at 1415 $ Given - Contrast 11/14/2019 1:56 PM CDT 10 mL barium (VARIBAR) 40 % suspension Oral, ONCE, 1 dose, On Thu11/14/19 at 1415 $ Given - Contrast 11/14/2019 1:56 PM CDT 10 mL documented in this encounter Care Teams Lock Up Worker Relationship Specialty Start Date End Date Ilan Pearson MD [address] [place], [place] [id number] PCP - General Family Medicine 05/25/19 documented as of this encounter
--- OUTSIDE RECORDS SUMMARY | 2024-02-27 10:40 | XMS_ITS | Encounter Summary ---
Author Organization [facility] Health Address [address] [place] [address] Care Team Providers Care Industrial Rehabilitation Consultant Name Role Phone Ilan Pearson MD Primary Care Provider [phone] Encounter Details Date Type Department Care Team (Latest Contact Info) Description 05/30/2020 Travel Social History Tobacco Use Types Packs/Day [...] on filedocumented in this encounter Care Teams Industrial Rehabilitation Consultant Relationship Specialty Start Date End Date Ilan Pearson MD [address] [place] [id number] PCP - General Family Medicine 05/25/19 documented as of this encounter
--- OUTSIDE RECORDS SUMMARY | 2024-02-27 10:40 | XMS_ITS | Encounter Summary ---
Author Organization [facility] Health Address [address] [place] [place] [address] Care Team Providers Care Motion Designer Name Role Phone Ilan Pearson MD Primary Care Provider [phone] Encounter Details Date Type Department Care Team (Latest Contact Info) Description 11/14/2019 Travel Social History Tobacco Use Types Packs/Day [...] on filedocumented in this encounter Care Teams Motion Designer Relationship Specialty Start Date End Date Ilan Pearson MD [address] [place] [id number] PCP - General Family Medicine 05/25/19 documented as of this encounter
--- OUTSIDE RECORDS SUMMARY | 2024-02-27 10:40 | XMS_ITS | Encounter Summary ---
Author Organization [facility] Health Address [address] [facility] [place] [address] Care Team Providers Care Base Ply Hand Name Role Phone Ilan Pearson MD Primary Care Provider [phone] Encounter Details Date Type Department Care Team (Late st Contact Info) Description 08/22/2019 Orders Only [facility] - Orthopedics [address] [facility] [place] [address] French Kim MD [address] [facility] [address] [place] [address] Neck pain Social History Tobacco Use Types Packs/Day Years [...] Report dictated by Misael Edwards MD (resident assistant cna). IDr. AL MD have personally reviewed and [...] Report dictated by Misael Edwards MD (resident assistant cna). I, Dr. AL LAWTON MD have personally reviewed and interpreted this examination/study. This report was electronically signed by AL LAWTON MD on08/23/2019 11:34 AM . French Kim MD DIAGNOSTIC IMAGING O RDERABLES documented in this encounter Visit Diagnoses Diagnosis Neck pain- Primary Cervicalgia Neck pain Cervicalgia documented in this encounter Care Teams Base Ply Hand Relationship Specialty Start Date End Date Ilan Pearson MD [address] [place] [id number] PCP - General Family Medicine 05/25/19 documented as of this encounter
--- OUTSIDE RECORDS SUMMARY | 2024-02-27 10:40 | XMS_ITS | Encounter Summary ---
Author Organization [facility] Health Address [address] [facility] [place] [address] Care Team Providers Care Film Recordist Name Role Phone Ilan Pearson MD Primary Care Provider [phone] Reason for Visit * Reason Comments Follow-up Encounter Details Date Type Department Care Team (Late st Contact Info) Description 08/23/2019 10:30 AM CDT Office Visit [facility] - [facility] [address] [facility] [place] [address] French Kim MD [address] [facility] [address] [place] [phone] Aftercare following surgery (Primary Dx); Dysphagia, unspecified type; S/P cervical spinal fusion; Central cord syndrome, subsequent encounter (HCC); Other closed nondisplaced fracture of fourth cervical vertebra with routine healing, subsequent encounter Social History Tobacco Use Types Packs/Day Years [...] Sign Reading Time Taken Comments Blood Pressure - - Pulse 91 08/23/2019 11:08 AM CDT Temperature 36.7 ??C (98 ??F) 08/23/2019 11:08 AM CDT Respiratory Rate 20 08/23/2019 11:08 AM CDT Oxygen Saturation 100% 08/23/2019 11:08 AM CDT Inhaled Oxygen Concentration - - Weight 68.5 kg (151 lb) 08/23/2019 11:08 AM CDT Height 182.9 cm (6') 08/23/2019 11:08 AM CDT Body Mass Index 20.48 08/23/2019 11:08 AM CDT documented in this encounter Functional [...] * Patient Instructions* Tong Denise RN - 08/23/2019 12:12 PM CDT Ajit Tyler 08/23/2019 Follow up: 3 months Please contact [facility] ENT to schedule an appointment with Dr. Aggarwal, Call [phone] Kim has referred you to Dr. Aggarwal and there is a referral in [facility]. Dr. Ernesto Aggarwal [address] [place] [address] [address] Please contact our clinic call center at if you need to schedule or change an appointment. For medical emergencies please call [phone]. Please contact Mina Denise RN at or through [employer] if you have any further questions or concerns. [facility] Orthopaedic office contact information: [facility]) [address] [place] [id number] [facility] [address] [place] [address], [address] [address] August 23, 2019 To Whom It May Concern: Please use this letter to document that Ajit Tyler, : 1960, was in to see French Kim MD on 08/23/2019. Thank you. Sincerely, French Kim MD [facility] documented in this encounter Progress Notes * Dwight Noriega MD - 08/23/2019 11:58 AM CDT [facility] Orthopedic Spine Surgery Clinic Note Ajit Tyler, 59 year old, male : 1960 CSN: [id number] Primary Care Physician: Ilan Pearson MD Diagnosis/Procedures 1) C3-4 fracutre subluxation 2) Central cord syndrome 3) Status post cervical spinal fusion Date of Injury: 05/25/19 Date of Surgery: 05/27/19 Procedures Performed: 1. ??Operative treatment of C4 fracture subluxation. 2. ??Posterior instrumentation, C2 to C5. 3. ??Posterior arthrodesis C2 to C4. 4. ??C3 and C4 decompressive laminectomies. Time since injury: 3 months HPI Date of this clinic visit: 08/23/2019 This is a 59 year old male with history as above presenting for 3 month follow up appointment. Patient has been progressing in PT and feels as if his upper extremities are stronger than before. Continued pain in neck and shoulders. History per chart of rotator cuff injuries bilaterally. Uses a wheelchair for ambulation. Patient complains of dysphagia that is troubling him. Continue numbness and paresthesia in both arms. Continued bowel and bladder incontinence. ROS otherwise negative. Smoking status: Former Objective Pulse 91 Temp 98 ??F (36.7 ??C) Resp 20 Ht 1.829 m (6') Wt 68.5 kg (151 lb) SpO2 100% BMI 20.48 kg/m2 PMHx No past medical history on file. [...] ??? acetaminophen (TYLENOL) 500 MG tablet ??? Artificial Saliva (CAPHOSOL) ??? bisacodyl (DULCOLAX) 10 MG suppository ??? calcium carbonate (TUMS) 500 MG chew tablet ??? cyclobenzaprine (FLEXERIL) 5 MG tablet ??? docusate sodium (COLACE) 100 MG capsule ??? ibuprofen (MOTRIN) 800 MG tablet ??? montelukast (SINGULAIR) 10 MG tablet ??? [...] negative. Physical Exam General appearance: awake, cooperative, NAD, in wheelchair Neck: - Incision healed, clean, and dry Bilateral Upper Extremity: - Motor: Shoulder Abduction (C5) Ungradeable Elbow Extension (C7) 2/5 Elbow Flexion (C5-palm up; C6 - thumb up) R 2/5 / L 1/5 Wrist Extension (C6) 2/5 Wrist Flexion (C7) 2/5 Finger Flexion (C8) 2/5 Finger Abduction (T1) 2/5 - Sensory: Deficits noted bilaterally from arms to fingers - Moore's sign is negative - Reflexes: Biceps: Normal Triceps: Normal BR: Normal Bilateral Lower Extremity: - Motor: Hip Flexion (L2/3) 5/5 Knee Flexion 5/5 Knee Extension (L4) 5/5 Ankle Dorsiflexion (L5) 5/5 Great Toe Extension (L5) 5/5 Ankle Plantarflexion (S1) 5/5 - Sensation: Intact to light touch distally - Clonus: present - Reflexes: Knee Jerk: Normal Achilles: Normal Babinski: Deferred Gait - In wheelchair. Unassessed. Imaging - X ray cervical AP and Lateral reviewed. Demonstrate no screw or implant loosening and good structural alignment. Assessment/Plan: Ajit Tyler is a 59 year old male 3 months s/p the above history doing well. - Patient was counseled to the nature of their diagnosis and demonstrated understanding - Lifting/Activity restrictions: none - PT continued for flexibility, especially in shoulders - Follow up in 3 months - Can meet with Dr. Stoddard (ENT) for dysphagia - Follow up Imaging: cervical x-ray AP and Lateral Dwight Noriega MD 08/23/2019 Attending Physician Supervisory Note I personally interviewed and examined the patient and agree with the doctor above. French Kim MD documented in this encounter Plan of Treatment Not on file documented as of this encounter Visit Diagnoses Diagnosis Aftercare following surgery- Primary Encounter for other specified aftercare Dysphagia, unspecified type S/P cervical spinal fusion Arthrodesis status Central cord syndrome, subsequent encounter ([facility]) Other closed nondisplaced fracture of fourth cervical vertebra with routine healing, subsequent encounter documented in this encounter Care Teams Film Recordist Relationship Specialty Start Date End Date Ilan Pearson MD [address] [place] [address] PCP - General Family Medicine 05/25/19 documented as of this encounter
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
--- OUTSIDE RECORDS SUMMARY | 2024-02-27 10:41 | XMS_ITS | Encounter Summary ---
Author Organization [facility] Health Address [address] [place] [address] Care Team Providers Care Matting Press Tender Name Role Phone Ilan Pearson MD Primary Care Provider [phone] Encounter Details Date Type Department Care Team (Latest Contact Info) Description 05/31/2019 4:40 PM CDT - 06/06/2019 8:40 PM CDT Hospital Encounter [facility] [address] [place], [place] [id number] [place] [address] [place] [address] [place] [address] [place] [address] [facility] Discharge Disposition: Inpatient Hospital Social History Tobacco [...] Procedure Name Priority Date/Time Associated Diagnosis Comments SODIUM URINE RANDOM MAXIM 06/06/2019 5 :48 PM CDT POTASSIUM URINE RANDOM MAXIM 06/06/2019 5:48 PM CDT OSMOLALITY BLOOD MAXIM 06/06/2019 5:48 PM CDT CHLORIDE URINE RANDOM MAXIM 06/06/2019 5:48 PM CDT CULTURE STOOL+ E COLI SHIGA-LIKE TOXIN Routine 06/06/2019 10:01 AM CDT C DIFFICILE GDH AG + TOXIN A+B Routine 06/06/2019 10:01 AM CDT URINE MICROSCOPIC ONLY REFLEX TO CULTURE Routine 06/06/2019 10:01 AM CDT URINALYSIS REFLEX MICROSCOPIC REFLEX CULTURE Routine 06/06/2019 10:01 AM CDT CULTURE BLOOD STAT 06/06/2019 10:01 AM CDT CULTURE BLOOD STAT 06/06/2019 10:01 AM CDT CBC W/O DIFFERENTIAL Routine 06/06/2019 4:20 AM CDT BASIC METABOLIC PANEL (CALCIUM TOTAL) Routine 06/06/2019 4:20 AM CDT URINE MICROSCOPIC ONLY REFLEX TO CULTURE Routine 06/05/2019 12:24 PM CDT URINALYSIS REFLEX MICROSCOPIC REFLEX CULTURE Routine 06/05/2019 12:24 PM CDT URINALYSIS REFLEX MICROSCOPIC REFLEX CULTURE Routine 06/02/2019 8:13 PM CDT CBC W/O DIFFERENTIAL Routine 06/02/2019 5:10 AM CDT BASIC METABOLIC PANEL (CALCIUM TOTAL) Routine 06/02/2019 5:10 AM CDT CBC W/O DIFFERENTIAL Routine 06/01/2019 3:59 AM CDT BASIC METABOLIC PANEL (CALCIUM TOTAL) Routine 06/01/2019 3:59 AM CDT IRON + TRANSFERRIN PANEL Add on 06/01/2019 3:59 AM CDT FERRITIN Add on 06/01/2019 3:59 AM CDT documented in this encounter Results * SODIUM URINE RANDOM (06/06/2019 5:48 PM CDT) Sodium Urine 38 mmol/L 06/06/2019 6:15 PM CDT [facility] Urine URINE SPECIMEN OBTAINED BY CLEAN CATCH PROCEDURE / Unknown Collection / Unknown 06/06/2019 5:48 PM CDT 06/06/2019 5:48 PM CDT Chris Sousa MD LAB - URINE CHEMISTR Y ORDERABLES Performing Organization Address City/[facility]/ZIP Co de Phone Number [facility] [id number] [place] [address] * POTASSIUM URINE RANDOM (06/06/2019 5:48 PM CDT) Potassium Urine 32.0 mmol/L 06/06/2019 6:15 PM CDT [facility] Urine URINE SPECIMEN OBTAINED BY CLEAN CATCH PROCEDURE / Unknown Collection / Unknown 06/06/2019 5:48 PM CDT 06/06/2019 5:48 PM CDT Chris Sousa MD LAB - URINE CHEMISTR Y ORDERABLES Performing Organization Address [facility] Co de Phone Number [facility] [address] [place] [address] * (ABNORMAL) OSMOLALITY BLOOD (06/06/2019 5:48 PM CDT) Osmolality 267(L) 280 - 300 mOsm/kg 06/06/2019 6:08 PM CDT [facility] Blood BLOOD SPECIMEN / Unknown Venipuncture / Unknown 06/06/2019 5:48 PM CDT 06/06/2019 5:48 PM CDT Chris Sousa MD LAB - CHEMISTRY ORDE RABLES Performing Organization Address [facility] Co de Phone Number [facility] [address] [place] [address] * CHLORIDE URINE RANDOM (06/06/2019 5:48 PM CDT) Chloride Urine 50.0 mmol/L 06/06/2019 6:14 PM CDT [facility] Urine URINE SPECIMEN OBTAINED BY CLEAN CATCH PROCEDURE / Unknown Collection / Unknown 06/06/2019 5:48 PM CDT 06/06/2019 5:48 PM CDT Chris Sousa MD LAB - URINE CHEMISTR Y ORDERABLES Performing Organization Address [facility] Co de Phone Number [facility] [id number] [place] [address] * URINE MICROSCOPIC ONLY REFLEX TO CULTURE (06/06/2019 10:01 AM CDT) Reflex Status Culture not indicated 06/06/2019 11:47 AM CDT [facility] RBC UA 0-2 None Seen, 0-2, 3-5 # /hpf 06/06/2019 11:47 AM CDT [facility] WBC UA 0-5 None Seen, 0-5 # /hpf 06/06/2019 11:47 AM CDT [facility] Bacteria UA None Seen None Seen 06/06/2019 11:47 AM CDT [facility] Squamous Epithelial Cells None Seen None Seen, 0-2, 3-5 /hpf 06/06/2019 11:47 AM CDT [facility] Mucus UA 1+ /LPF 06/06/2019 11:47 AM CDT [facility] Urine URINE SPECIMEN COLLECTION, CATHETERIZED / Unknown 06/06/2019 10:01 AM CDT 06/06/2019 11:15 AM CDT Narrative [facility] - 06/06/2019 11:47 AM CDT Catalina Patricia FINAL INSPECTOR SHUTTLE-PIPE INSTALLER LAB - URINALYSIS ORDERABLES Performing Organization Address City/[facility]/ZIP Co de Phone Number [facility] [address] [place] [address] * C DIFFICILE GDH AG + TOXIN A+B (06/06/2019 10:01 AM CDT) GDH Antigen Negative Negative, Invalid 06/06/2019 8:49 PM CDT [facility] C difficile Toxin A + B Negative Negative, Invalid 06/06/2019 8:49 PM CDT [facility] Interpretation C difficile Negative for toxigenic C. difficile Negative for toxigenic C. difficile 06/06/2019 8:49 PM CDT [facility] Stool STOOL SPECIMEN / Unknown 06/06/2019 10:01 AM CDT 06/06/2019 11:19 AM CDT Catalina Patricia FINAL INSPECTOR [facility] LAB - MICROBIOLOG Y ORDERABLES Performing Organization Address [facility] Co de Phone Number [facility] [address] [place] [address], [facility] [phone] * CULTURE STOOL+ E COLI SHIGA-LIKE TOXIN (06/06/2019 10:01 AM CDT) Culture No growth Salmonella, Shigella, Campylobacter, Escherichia coli O157:h7 or Yersinia JHOANA 06/08/2019 8:58 AM CDT [facility] Culture Negative Escherichia coli Shiga-like toxin (NM) JHOANA 06/08/2019 8:58 AM CDT [facility] Culture No normal enteric gram-negative bacilli isolated JHOANA 06/08/2019 8:58 AM CDT [facility] Stool STOOL SPECIMEN / Unknown 06/06/2019 10:01 AM CDT 06/06/2019 11:19 AM CDT Catalina Patricia FINAL INSPECTOR SHUTTLE-PIPE INSTALLER LAB - MICROBIOLOG Y ORDERABLES Performing Organization Address City/[facility]/ZIP Co de Phone Number [facility] [address] [place] [address], [facility] [phone] * (ABNORMAL) URINALYSIS REFLEX MICROSCOPIC REFLEX CULTURE (06/06/2019 10:01 AM CDT) Color UA Yellow Straw, Yellow 06/06/2019 11:37 AM CDT [facility] Clarity UA Clear Clear 06/06/2019 11:37 AM CDT [facility] Glucose UA Negative Negative 06/06/2019 11:37 AM CDT [facility] Bilirubin UA Negative Negative 06/06/2019 11:37 AM CDT [facility] Ketone UA Negative Negative 06/06/2019 11:37 AM CDT [facility] Specific [place] UA 1.019 1.005 - 1.030 06/06/2019 11:37 AM CDT [facility] Blood UA 1+(A) Negative 06/06/2019 11:37 AM CDT [facility] pH UA 6.0 5.0 - 8.0 pH 06/06/2019 11:37 AM CDT [facility] Protein UA Negative Negative 06/06/2019 11:37 AM CDT [facility] Urobilinogen UA Negative Negative mg/dL 06/06/2019 11:37 AM CDT [facility] Nitrite UA Negative Negative 06/06/2019 11:37 AM CDT [facility] Leukocyte UA Negative Negative 06/06/2019 11:37 AM CDT [facility] Urine Microscopy Urine microscopy to follow 06/06/2019 11:37 AM CDT [facility] Reflex Status Culture not indicated 06/06/2019 11:37 AM CDT [facility] Urine URINE SPECIMEN COLLECTION, CATHETERIZED / Unknown 06/06/2019 10:01 AM CDT 06/06/2019 11:15 AM CDT Narrative [facility] - 06/06/2019 11:37 AM CDT Catalina Patricia FINAL INSPECTOR SHUTTLE-PIPE INSTALLER LAB - URINALYSIS ORDERABLES [facility] [address] [place] [address] * CULTURE BLOOD (06/06/2019 10:01 AM CDT) Culture No growth day 5 JHOANA 06/11/2019 1:31 PM CDT [facility] Blood (Arm, Left) 06/06/2019 10:01 AM CDT 06/06/2019 11:19 AM CDT Catalina Patricia APRN-PIPE INSTALLER LAB - MICROBIOLOG Y ORDERABLES [facility] [address] [place] [address], [facility] [phone] * CULTURE BLOOD (06/06/2019 10:01 AM CDT) Pathologist [facility] Culture No growth day 5 JHOANA 06/11/2019 1:31 PM CDT [facility] Blood (Arm, Left) 06/06/2019 10:01 AM CDT 06/06/2019 11:19 AM CDT Catalina Patricia APRN-[facility] LAB - MICROBIOLOG Y ORDERABLES Performing Organization Address [facility] de Phone Number [facility] [address] [place] [address], [facility] [phone] * (ABNORMAL) CBC W/O DIFFERENTIAL (06/06/2019 4:20 AM CDT) WBC 17.0(H) 4.4 - 10.7 x10E9/L 06/06/2019 6:51 AM CDT [facility] RBC 3.84 3.80 - 5.40 x10E12/L 06/06/2019 6:51 AM CDT [facility] Hemoglobin 10.6(L) 12.0 - 17.6 gm/dL 06/06/2019 6:51 AM CDT [facility] Hematocrit 32.2(L) 35.2 - 51.7 % 06/06/2019 6:51 AM CDT [facility] MCV 83.9 80.7 - 98.3 fl 06/06/2019 6:51 AM CDT [facility] MCH 27.6 26.7 - 34.0 pg 06/06/2019 6:51 AM CDT [facility] MCHC 32.9 30.8 - 35.9 gm/dL 06/06/2019 6:51 AM CDT [facility] Platelet Count 444(H) 153 - 416 x10E9/L 06/06/2019 6:51 AM CDT [facility] RDW-CV 12.9 12.1 - 14.9 % 06/06/2019 6:51 AM CDT [facility] MPV 9.9 9.4 - 12.9 fl 06/06/2019 6:51 AM CDT [facility] Blood BLOOD SPECIMEN / Unknown 06/06/2019 4:20 AM CDT 06/06/2019 6:31 AM CDT Toya Stearns MD LAB - HEMATOLOGY ORD ERABLES [facility] [address] [place] [address] * (ABNORMAL) BASIC METABOLIC PANEL (CALCIUM TOTAL) (06/06/2019 4:20 AM CDT) Glucose 95 70 - 105 mg/dL 06/06/2019 7:03 AM T [facility] Sodium 130(L) 136 - 145 mmol/L 06/06/2019 7:03 AM T [facility] Potassium 3.1(L) 3.5 - 5.1 mmol/L 06/06/2019 7:03 AM T [facility] Chloride 94(L) 98 - 107 mmol/L 06/06/2019 7:03 AM T [facility] CO2 26 23 - 31 mmol/L 06/06/2019 7:03 AM T [facility] Calcium 8.0(L) 8.4 - 10.4 mg/dL 06/06/2019 7:03 AM T [facility] Anion Gap 10 8 - 16 mmol/L 06/06/2019 7:03 AM CDT [facility] BUN 13 8.4 - 25.7 mg/dL 06/06/2019 7:03 AM T [facility] Creatinine 0.71(L) 0.72 - 1.25 mg/dL 06/06/2019 7:03 AM T [facility] eGFR by MDRD >60 >60 mL/min/1.7 3m2 06/06/2019 7:03 AM CDT [facility] eGFR by MDRD >60 >60 mL/min/1.7 3m2 06/06/2019 7:03 AM CDT [facility] Blood BLOOD SPECIMEN / Unknown 06/06/2019 4:20 AM CDT 06/06/2019 6:31 AM CDT Toya Stearns MD LAB - CHEMISTRY ALEXIS DEVRIES Performing Organization Address [facility] Co de Phone Number [facility] [address] [place], [place] [phone] * URINE MICROSCOPIC ONLY REFLEX TO CULTURE (06/05/2019 12:24 PM CDT) Reflex Status Culture not indicated 06/05/2019 3:20 PM CDT [facility] RBC UA 0-2 None Seen, 0-2, 3-5 # /hpf 06/05/2019 3:20 PM CDT [facility] WBC UA 0-5 None Seen, 0-5 # /hpf 06/05/2019 3:20 PM CDT [facility] Bacteria UA None Seen None Seen 06/05/2019 3:20 PM CDT [facility] Squamous Epithelial Cells None Seen None Seen, 0-2, 3-5 /hpf 06/05/2019 3:20 PM CDT [facility] Urine URINE SPECIMEN COLLECTION, CATHETERIZED / Unknown 06/05/2019 12:24 PM CDT 06/05/2019 2:56 PM CDT Narrative [facility] - 06/05/2019 3:20 PM CDT Toma Mcfarlane APRN-PIPE INSTALLER LAB - URINALYSIS ORDERABLES Performing Organization Address [facility] Co de Phone Number [facility] [address] [place] [address] * (ABNORMAL) URINALYSIS REFLEX MICROSCOPIC REFLEX CULTURE (06/05/2019 12:24 PM CDT) Color UA Colorless(A) Straw, Yellow 06/05/2019 3:06 PM CDT [facility] Clarity UA Clear Clear 06/05/2019 3:06 PM CDT [facility] Glucose UA Negative Negative 06/05/2019 3:06 PM CDT [facility] Bilirubin UA Negative Negative 06/05/2019 3:06 PM CDT [facility] Ketone UA Negative Negative 06/05/2019 3:06 PM CDT [facility] Specific [place] UA 1.003(L) 1.005 - 1.030 06/05/2019 3:06 PM CDT [facility] Blood UA 1+(A) Negative 06/05/2019 3:06 PM CDT [facility] pH UA 6.0 5.0 - 8.0 pH 06/05/2019 3:06 PM CDT [facility] Protein UA Negative Negative 06/05/2019 3:06 PM CDT [facility] Urobilinogen UA Negative Negative mg/dL 06/05/2019 3:06 PM CDT [facility] Nitrite UA Negative Negative 06/05/2019 3:06 PM CDT [facility] Leukocyte UA Negative Negative 06/05/2019 3:06 PM CDT [facility] Urine Microscopy Urine microscopy to follow 06/05/2019 3:06 PM CDT [facility] Reflex Status Culture not indicated 06/05/2019 3:06 PM CDT [facility] Urine URINE SPECIMEN COLLECTION, CATHETERIZED / Unknown 06/05/2019 12:24 PM CDT 06/05/2019 2:56 PM CDT Narrative [facility] - 06/05/2019 3:06 PM CDT Toma Mcfarlane APRN-PIPE INSTALLER LAB - URINALYSIS ORDERABLES [facility] [address] [place] [address] * (ABNORMAL) URINALYSIS REFLEX MICROSCOPIC REFLEX CULTURE (06/02/2019 8:13 PM CDT) Color UA Yellow Straw, Yellow 06/02/2019 8:51 PM CDT [facility] Clarity UA Clear Clear 06/02/2019 8:51 PM CDT [facility] Glucose UA Negative Negative 06/02/2019 8:51 PM CDT [facility] Bilirubin UA Negative Negative 06/02/2019 8:51 PM CDT [facility] Ketone UA Trace(A) Negative 06/02/2019 8:51 PM CDT [facility] Specific [place] UA 1.028 1.005 - 1.030 06/02/2019 8:51 PM CDT [facility] Blood UA Negative Negative 06/02/2019 8:51 PM CDT [facility] pH UA 5.0 5.0 - 8.0 pH 06/02/2019 8:51 PM CDT [facility] Protein UA Negative Negative 06/02/2019 8:51 PM CDT [facility] Urobilinogen UA Negative Negative mg/dL 06/02/2019 8:51 PM CDT [facility] Nitrite UA Negative Negative 06/02/2019 8:51 PM CDT [facility] Leukocyte UA Negative Negative 06/02/2019 8:51 PM CDT [facility] Urine Microscopy Urine microscopy not indicated 06/02/2019 8:51 PM CDT [facility] Reflex Status Culture not indicated 06/02/2019 8:51 PM CDT [facility] Urine URINE SPECIMEN OBTAINED BY CLEAN CATCH PROCEDURE / Unknown Collection / Unknown 06/02/2019 8:13 PM CDT 06/02/2019 8:45 PM CDT Narrative [facility] - 06/02/2019 8:51 PM CDT Toma Mcfarlane FINAL INSPECTOR SHUTTLE-PIPE INSTALLER LAB - URINALYSIS ORDERABLES Performing Organization Address City/State/[facility] Co de Phone Number [facility] [address] [place] [address] * (ABNORMAL) CBC W/O DIFFERENTIAL (06/02/2019 5:10 AM CDT) WBC 11.8(H) 4.4 - 10.7 x10E9/L 06/02/2019 7:01 AM CDT [facility] RBC 4.04 3.80 - 5.40 x10E12/L 06/02/2019 7:01 AM CDT [facility] Hemoglobin 11.0(L) 12.0 - 17.6 gm/dL 06/02/2019 7:01 AM CDT [facility] Hematocrit 33.9(L) 35.2 - 51.7 % 06/02/2019 7:01 AM CDT [facility] MCV 83.9 80.7 - 98.3 fl 06/02/2019 7:01 AM CDT [facility] MCH 27.2 26.7 - 34.0 pg 06/02/2019 7:01 AM CDT [facility] MCHC 32.4 30.8 - 35.9 gm/dL 06/02/2019 7:01 AM CDT [facility] Platelet Count 372 153 - 416 x10E9/L 06/02/2019 7:01 AM CDT [facility] RDW-CV 12.5 12.1 - 14.9 % 06/02/2019 7:01 AM CDT [facility] MPV 10.2 9.4 - 12.9 fl 06/02/2019 7:01 AM CDT [facility] Blood BLOOD SPECIMEN / Unknown 06/02/2019 5:10 AM CDT 06/02/2019 6:45 AM CDT Toya Stearns MD LAB - HEMATOLOGY ORD ERABLES [facility] [address] [place] [address] * (ABNORMAL) BASIC METABOLIC PANEL (CALCIUM TOTAL) (06/02/2019 5:10 AM CDT) Glucose 84 70 - 105 mg/dL 06/02/2019 7:30 AM T [facility] Sodium 132(L) 136 - 145 mmol/L 06/02/2019 7:30 AM T [facility] Potassium 3.5 3.5 - 5.1 mmol/L 06/02/2019 7:30 AM T [facility] Chloride 96(L) 98 - 107 mmol/L 06/02/2019 7:30 AM T [facility] CO2 26 23 - 31 mmol/L 06/02/2019 7:30 AM T [facility] Calcium 8.5 8.4 - 10.4 mg/dL 06/02/2019 7:30 AM T [facility] Anion Gap 10 8 - 16 mmol/L 06/02/2019 7:30 AM T [facility] BUN 20 8.4 - 25.7 mg/dL 06/02/2019 7:30 AM T [facility] Creatinine 0.70(L) 0.72 - 1.25 mg/dL 06/02/2019 7:30 AM T [facility] eGFR by MDRD >60 >60 mL/min/1.7 3m2 06/02/2019 7:30 AM T [facility] eGFR by MDRD >60 >60 mL/min/1.7 3m2 06/02/2019 7:30 AM CDT [facility] Blood BLOOD SPECIMEN / Unknown 06/02/2019 5:10 AM CDT 06/02/2019 6:45 AM CDT Toya Stearns MD LAB - CHEMISTRY ALEXIS DEVRIES Performing Organization Address [facility] de Phone Number [facility] [address] [place] [id number] * (ABNORMAL) FERRITIN (06/01/2019 3:59 AM CDT) Ferritin 292(H) 22 - 275 ng/mL 06/01/2019 10:47 PM CDT [facility] Blood BLOOD SPECIMEN / Unknown Venipuncture / Unknown 06/01/2019 3:59 AM CDT 06/01/2019 10:14 PM CDT Chris Sousa MD LAB - CHEMISTRY ALEXIS DEVRIES Performing Organization Address [facility] de Phone Number [facility] [address] [place] [phone] * (ABNORMAL) IRON + TRANSFERRIN PANEL (06/01/2019 3:59 AM CDT) Iron 37(L) 65 - 175 ug/dL 06/01/2019 10:27 PM CDT [facility] Transferrin 162(L) 174 - 364 mg/dL 06/01/2019 10:27 PM CDT [facility] TIBC Calculated 203(L) 240 - 450 ug/ml 06/01/2019 10:27 PM CDT [facility] Iron Saturation % 18(L) 20 - 50 % 06/01/2019 10:27 PM CDT [facility] Blood BLOOD SPECIMEN / Unknown Venipuncture / Unknown 06/01/2019 3:59 AM CDT 06/01/2019 10:14 PM CDT Chris Sousa MD LAB - CHEMISTRY ALEXIS DEVRIES Performing Organization Address [facility] de Phone Number [facility] [address] [place] [phone] * (ABNORMAL) CBC W/O DIFFERENTIAL (06/01/2019 3:59 AM CDT) Pathologist [facility] WBC 10.6 4.4 - 10.7 x10E9/L 06/01/2019 11:26 AM CDT [facility] RBC 3.93 3.80 - 5.40 x10E12/L 06/01/2019 11:26 AM CDT [facility] Hemoglobin 10.9(L) 12.0 - 17.6 gm/dL 06/01/2019 11:26 AM CDT [facility] Hematocrit 33.5(L) 35.2 - 51.7 % 06/01/2019 11:26 AM CDT [facility] MCV 85.2 80.7 - 98.3 fl 06/01/2019 11:26 AM CDT [facility] MCH 27.7 26.7 - 34.0 pg 06/01/2019 11:26 AM CDT [facility] MCHC 32.5 30.8 - 35.9 gm/dL 06/01/2019 11:26 AM CDT [facility] Platelet Count 350 153 - 416 x10E9/L 06/01/2019 11:26 AM CDT [facility] RDW-CV 12.7 12.1 - 14.9 % 06/01/2019 11:26 AM CDT [facility] MPV 10.8 9.4 - 12.9 fl 06/01/2019 11:26 AM CDT [facility] Blood BLOOD SPECIMEN / Unknown 06/01/2019 3:59 AM CDT 06/01/2019 11:14 AM CDT Toya Stearns MD LAB - HEMATOLOGY ORD ERABLES [facility] [id number] [place] [address] * (ABNORMAL) BASIC METABOLIC PANEL (CALCIUM TOTAL) (06/01/2019 3:59 AM CDT) Pathologist [facility] Glucose 82 70 - 105 mg/dL 06/01/2019 11:44 AM CDT [facility] Sodium 132(L) 136 - 145 mmol/L 06/01/2019 11:44 AM CDT [facility] Potassium 4.8 3.5 - 5.1 mmol/L 06/01/2019 11:44 AM CDT [facility] [facility] Chloride 97(L) 98 - 107 mmol/L 06/01/2019 11:44 AM CDT [facility] CO2 25 23 - 31 mmol/L 06/01/2019 11:44 AM CDT [facility] Calcium 8.4 8.4 - 10.4 mg/dL 06/01/2019 11:44 AM CDT [facility] Anion Gap 10 8 - 16 mmol/L 06/01/2019 11:44 AM CDT [facility] BUN 19 8.4 - 25.7 mg/dL 06/01/2019 11:44 AM CDT [facility] Creatinine 0.75 0.72 - 1.25 mg/dL 06/01/2019 11:44 AM CDT [facility] eGFR by MDRD >60 >60 mL/min/1.7 3m2 06/01/2019 11:44 AM CDT [facility] eGFR by MDRD >60 >60 mL/min/1.7 3m2 06/01/2019 11:44 AM CDT [facility] Blood BLOOD SPECIMEN / Unknown 06/01/2019 3:59 AM CDT 06/01/2019 11:14 AM CDT Toya Stearns MD LAB - CHEMISTRY [facility] Organization Address City/State/ZIP Co de Phone Number [facility] [address] [place] [phone] documented in this encounter Visit Diagnoses Not on filedocumented in this encounter Additional Health Concerns Infection Onset Date Last Indicated Resolved Time COVID-19 Under Investigation 06/06/2019 06/07/2019 06/07/2019 6:09 AM CDT documented as of this encounter Care Teams [employer] T[employer] Relationship Specialty Start Date End Date Ilan Pearson MD [address] [place] [id number] PCP - General Family Medicine 05/25/19 documented as of this encounter
--- OUTSIDE RECORDS SUMMARY | 2024-02-27 10:41 | XMS_ITS | Encounter Summary ---
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 see red or purple skin over a bony area. ?? You see a blister or open sore over a bony area. ?? Your skin feels warm, spongy, or tight. ?? You have new pain, or pain that is getting worse. ?? You have questions or concerns about your condition or care. Help prevent a pressure injury: Ask your healthcare provider for more information on any of the following: ?? Check your skin several times each day. Check for red skin, or other color changes, over bony areas. Use a mirror if you have trouble seeing certain areas, or ask another person to look. ?? Change wet bedding and clothes right away. The wet material may rub against your skin and cause damage. ?? Change your position often. Change your position every 2 hours if you are in a bed all day. Change your position every hour if you are in a wheelchair all day. Set an alarm to help remind you whenit is time to turn. Keep a written turning schedule to help you remember to turn. If you are helping a person move in bed, lift him or her. Do not slide him or her. Keep the head of the bed as low aspossible. This may help prevent damage to the skin from sliding down in bed. ?? Protect the skin over bony areas. Use pillows or foam wedges to keep bony areas from touching, and to relieve pressure. For example, put a pillow or foam wedge between your knees to keep them frompressing on one another. Place a pillow or foam wedge under you to keep your hip raised when you lie on your side. Do not rest directly on your hipbone. Put a foam pad or pillow under your legs from calf to ankle when you lie on your back. The pad or pillow should raise your heels so that they are not touching the bed. ?? Use medical equipment and pads. A draw sheet or large pad under you may help others move you up in bed. An overhead trapeze can help you change positions in bed. Mattresses and overlays made to provide more cushioning may help decrease the risk of pressure injuries. Examples include a foam mattress pad and air or water mattresses. Ask about equipment that may be right for you and how you use it. ?? Keep your skin clean, dry, and moisturized. Use mild soap and warm water to clean your skin. Do not rub or scrub when you wash. Do not use products that contain alcohol, because they can dry out your skin. Gently pat your skin dry. Do not rub your skin with a towel. Apply lotion or a moisturizeron your skin often. ?? Eat a variety of healthy foods. Healthy foods include fruits, vegetables, whole-grain breads, and fish. Foods that are high in protein may help your pressure injury heal. This includes lean meats,beans, milk, yogurt, and cheese. Nutrition shakes may also give you extra calories and protein if you have trouble eating or are underweight. Follow up with your healthcare provider as directed: Write down your questions so you remember to ask them during your visits. ?? Copyright [employer] 2019 Information is for End User's use only and may not be sold, redistributed or otherwise used for commercial purposes. All illustrations and images included in CareNotes?? are the copyrighted property of [employer] or [employer] The above information is an educational therapist only. It is not intended as medical advice for individual conditions or treatments. Talk to your doctor, nurse or pharmacist before following any medical regimen to see if it is safe and effective for you. How to Prevent Pressure Injuries WHAT YOU NEED TO KNOW: A pressure injury is an injury to the skin or tissue over a bony area. A pressure injury is also called a pressure sore, bedsore, wound, or decubitus ulcer. Pressure injuries can form over any area but are most common on the back, buttocks, hips, and heels. DISCHARGE INSTRUCTIONS: Contact your healthcare provider if: ?? You have a fever. ?? You see red or purple skin over a bony area. ?? You see a blister or open sore over a bony area. ?? Your skin feels warm, spongy, or tight. ?? You have new pain, or pain that is getting worse. ?? You have questions or concerns about your condition or care. Help prevent a pressure injury: Ask your healthcare provider for more information on any of the following: ?? Check your skin several times each day. Check for red skin, or other color changes, over bony areas. Use a mirror if you have trouble seeing certain areas, or ask another person to look. ?? Change wet bedding and clothes right away. The wet material may rub against your skin and cause damage. ?? Change your position often. Change your position every 2 hours if you are in a bed all day. Change your position every hour if you are in a wheelchair all day. Set an alarm to help remind you whenit is time to turn. Keep a written turning schedule to help you remember to turn. If you are helping a person move in bed, lift him. Do not slide him. Keep the head of the bed as low as possible. This may help prevent damage to the skin from sliding down in bed. ?? Protect the skin over bony areas. Use pillows or foam wedges to keep bony areas from touching, and to relieve pressure. For example, put a pillow or foam wedge between your knees to keep them frompressing on one another. Place a pillow or foam wedge under you to keep your hip raised when you lie on your side. Do not rest directly on your hipbone. Put a foam pad or pillow under your legs from calf to ankle when you lie on your back. The pad or pillow should raise your heels so that they are not touching the bed. ?? Use medical equipment and pads. A draw sheet or large pad under you may help others move you up in bed. An overhead trapeze can help you change positions in bed. Mattresses and overlays made to provide more cushioning may help decrease the risk of pressure injuries. Examples include a foam mattress pad and air or water mattresses. Ask about equipment that may be right for you and how you use it. ?? Keep your skin clean, dry, and moisturized. Use mild soap and warm water to clean your skin. Do not rub or scrub when you wash. Do not use products that contain alcohol, because they can dry out your skin. Gently pat your skin dry. Do not rub your skin with a towel. Apply lotion or a moisturizeron your skin often. ?? Eat a variety of healthy foods. Healthy foods include fruits, vegetables, whole-grain breads, and fish. Foods that are high in protein may help your pressure injury heal. This includes lean meats,beans, milk, yogurt, and cheese. Nutrition shakes may also give you extra calories and protein if you have trouble eating or are underweight. Follow up with your healthcare provider as directed: Write down your questions so you remember to ask them during your visits. ?? Copyright [employer] 2019 Information is for End User's use only and may not be sold, redistributed or otherwise used for commercial purposes. All illustrations and images included in CareNotes?? are the copyrighted property of [employer] or [employer] The above information is an educational therapist only. It is not intended as medical advice for individual conditions or treatments. Talk to your doctor, nurse or pharmacist before following any medical regimen to see if it is safe and effective for you. How to Prevent Pressure Injuries WHAT YOU NEED TO KNOW: What is a pressure injury? A pressure injury is an injury to the skin or tissue over a bony area. Apressure injury is also called a pressure sore, bedsore, wound, or decubitus ulcer. Pressure injuries can form over any area but are most common on the back, buttocks, hips, and heels. What causes pressure injuries? ?? Continuous pressure builds when you sit or lie on a bony area for too long. Pressure slows or stops the blood from flowing to the skin. This may hurt the skin and cause tissue damage. Pressure canstart to cause damage to your skin and tissue about 2 hours after staying in the same position. ?? Shearing or friction happens when delicate skin is dragged across a surface, such as sheets. This may cause your skin to tear or a blister to form. Sliding up or down in bed or moving from the bedto a chair may tear your skin. Muscle spasms may cause your arms or legs to jerk and rub the sheets, causing tears in your skin. What increases my risk for a pressure injury? ?? Long periods of time without moving ?? Short periods of increased pressure, such as sitting in a wheelchair ?? Not being able to control your urine or bowel movements ?? Dehydration or poor nutrition ?? Numbness ?? Poor blood flow to your limbs ?? Age over 65 years ?? Previous pressure injury What can I do to help prevent a pressure injury? Ask your healthcare provider for more information on any of the following: ?? Check your skin several times each day. Check for red skin, or other color changes, over bony areas. Use a mirror if you have trouble seeing certain areas, or ask another person to look. ?? Change wet bedding and clothes right away. The wet material may rub against your skin and cause damage. ?? Change your position often. Change your position every 2 hours if you are in a bed all day. Change your position every hour if you are in a wheelchair all day. Set an alarm to help remind you whenit is time to turn. Keep a written turning schedule to help you remember to turn. If you are helping a person move in bed, lift him or her. Do not slide him or her. Keep the head of the bed as low aspossible. This may help prevent damage to the skin from sliding down in bed. ?? Protect the skin over bony areas. Use pillows or foam wedges to keep bony areas from touching, and to relieve pressure. For example, put a pillow or foam wedge between your knees to keep them frompressing on one another. Place a pillow or foam wedge under you to keep your hip raised when you lie on your side. Do not rest directly on your hipbone. Put a foam pad or pillow under your legs from calf to ankle when you lie on your back. The pad or pillow should raise your heels so that they are not touching the bed. ?? Use medical equipment and pads. A draw sheet or large pad under you may help others move you up in bed. An overhead trapeze can help you change positions in bed. Mattresses and overlays made to provide more cushioning may help decrease the risk of pressure injuries. Examples include a foam mattress pad and air or water mattresses. Ask about equipment that may be right for you and how you use it. ?? Keep your skin clean, dry, and moisturized. Use mild soap and warm water to clean your skin. Do not rub or scrub when you wash. Do not use products that contain alcohol, because they can dry out your skin. Gently pat your skin dry. Do not rub your skin with a towel. Apply lotion or a moisturizeron your skin often. ?? Eat a variety of healthy foods. Healthy foods include fruits, vegetables, whole-grain breads, and fish. Foods that are high in protein may help your pressure injury heal. This includes lean meats,beans, milk, yogurt, and cheese. Nutrition shakes may also give you extra calories and protein if you have trouble eating or are underweight. When should I contact my healthcare provider? ?? You have a fever. ?? You see red or purple skin over a bony area. ?? You see a blister or open sore over a bony area. ?? Your skin feels warm, spongy, or tight. ?? You have new pain, or pain that is getting worse. ?? You have questions or concerns about your condition or care. CARE AGREEMENT: You have the right to help plan your care. Learn about your health condition and how it may be treated. Discuss treatment options with your healthcare providers to decide what care you want to receive. You always have the right to refuse treatment. The above information is an educational therapist only. It is not intended as medical advice for individual conditions or treatments. Talk to your doctor, nurse or pharmacist before following any medical regimen to see if it is safe and effective for you. ?? Copyright [employer] 2019 Information is for End User's use only and may not be sold, redistributed or otherwise used for commercial purposes. All illustrations and images included in CareNotes?? are the copyrighted property of [employer] or [employer] [place] How to Turn a Person in Bed FILTER CLOTH MAKER: Turn the person at least every 2 hours if he or she is unable to move. This will help prevent pressure sores, blood clots, and breathing problems, such as pneumonia. It will also help improve the person's comfort in bed. Safety guidelines: If possible, the head of the bed should be flat before you turn the person. The following can help keep you and the person safe when you turn him or her: ?? Use correct form. It is important to protect your lower back when you turn a person in bed. Keepyour feet a little wider than your shoulder width. Stand close to the person so you do not have to reach too far during the turn. Keep the person's head, torso, and legs in line during the turn. ?? Ask for help if needed. Ask the person to help as much as possible. Ask someone to help you if needed. You and your helpers can count out loud to 3 to coordinate efforts. ?? Move the person smoothly, without sudden movements. Quick changes in position can cause falls, injuries, or pain. You can also tear the person's skin if a movement is too quick or forceful. ?? Check medical equipment. You may need to move or secure tubes, medicine pumps, or monitors. Makesure nothing will come loose or break when you turn the person. Do not remove any equipment from the person unless the person's healthcare provider tells you to. How to turn a person in bed: ?? Cross the person's arms over his or her chest. This prevents them from getting trapped under hisor her body during the turn. ?? Stand at the side of the bed, lower the bed rail (if needed), and face the person. Put a pillow between the person's knees. ?? If possible, ask the person to grab the opposite bed rail to help pull himself or herself onto his or her side. ?? Roll the edge of the sheet on your side and grab it. Pull the sheet up so the person slowly rolls from his or her back to his or her side. ?? Place pillows behind the person's back and buttocks to help keep him or her on his or her side comfortably. ?? Smooth the sheets so they are not wrinkled. Pull the bed rail up so it locks in place. ?? Make sure the person is comfortable and breathing easily. The person should not be in a positionthat cuts off circulation or is uncomfortable. You may to adjust the person's position. You also may need to add or adjust pillows. ?? Help the person move into a comfortable resting position in the bed, if needed. If you placed a slide sheet under the person, you can use it to change the person's position. Have someone help you by standing on the other side of the person's bed. You will each hold the slide sheet at the person's shoulder and knee levels. Move the sheet up, down, or to the side as needed so the person is comfortable. ?? Check all medical equipment to make sure it is running correctly. Make sure any alarms are turned on. Check for tubes or other equipment that needs to be adjusted after the turn. ?? Copyright [employer] 2019 Information is for End User's use only and may not be sold, redistributed or otherwise used for commercial purposes. All illustrations and images included in CareNotes?? are the copyrighted property of [employer] or [employer] [place] The above information is an educational therapist only. It is not intended as medical advice for individual conditions or treatments. Talk to your doctor, nurse or pharmacist before following any medical regimen to see if it is safe and effective for you. How to Turn a Person in Bed WHAT YOU NEED TO KNOW: Turn the person at least every 2 hours if he or she is unable to move. This will help prevent pressure sores, blood clots, and breathing problems, such as pneumonia. It will also help improve the person's comfort in bed. DISCHARGE INSTRUCTIONS: Safety guidelines: If possible, the head of the bed should be flat before you turn the person. The following can help keep you and the person safe when you turn him or her: ?? Use correct form. It is important to protect your lower back when you turn a person in bed. Keepyour feet a little wider than your shoulder width. Stand close to the person so you do not have to reach too far during the turn. Keep the person's head, torso, and legs in line during the turn. ?? Ask for help if needed. Ask the person to help as much as possible. Ask someone to help you if needed. You and your helpers can count out loud to 3 to coordinate efforts. ?? Move the person smoothly, without sudden movements. Quick changes in position can cause falls, injuries, or pain. You can also tear the person's skin if a movement is too quick or forceful. ?? Check medical equipment. You may need to move or secure tubes, medicine pumps, or monitors. Makesure nothing will come loose or break when you turn the person. Do not remove any equipment from the person unless the person's healthcare provider tells you to. How to turn a person in bed: ?? Cross the person's arms over his or her chest. This prevents them from getting trapped under hisor her body during the turn. ?? Stand at the side of the bed, lower the bed rail (if needed), and face the person. Put a pillow between the person's knees. ?? If possible, ask the person to grab the opposite bed rail to help pull himself or herself onto his or her side. ?? Roll the edge of the sheet on your side and grab it. Pull the sheet up so the person slowly rolls from his or her back to his or her side. ?? Place pillows behind the person's back and buttocks to help keep him or her on his or her side comfortably. ?? Smooth the sheets so they are not wrinkled. Pull the bed rail up so it locks in place. ?? Make sure the person is comfortable and breathing easily. The person should not be in a positionthat cuts off circulation or is uncomfortable. You may to adjust the person's position. You also may need to add or adjust pillows. ?? Help the person move into a comfortable resting position in the bed, if needed. If you placed a slide sheet under the person, you can use it to change the person's position. Have someone help you by standing on the other side of the person's bed. You will each hold the slide sheet at the person's shoulder and knee levels. Move the sheet up, down, or to the side as needed so the person is comfortable. ?? Check all medical equipment to make sure it is running correctly. Make sure any alarms are turned on. Check for tubes or other equipment that needs to be adjusted after the turn. ?? Copyright [employer] 2019 Information is for End User's use only and may not be sold, redistributed or otherwise used for commercial purposes. All illustrations and images included in CareNotes?? are the copyrighted property of [employer] or [employer] The above information is an educational therapist only. It is not intended as medical advice for individual conditions or treatments. Talk to your doctor, nurse or pharmacist before following any medical regimen to see if it is safe and effective for you. How to Turn a Person in Bed WHAT YOU NEED TO KNOW: What do I need to know about turning a person in bed? Turn the person at least every 2 hours if he or she is unable to move. This will help prevent pressure sores, blood clots, and breathing problems, such as pneumonia. It will also help improve the person's comfort in bed. What safety guidelines do I need to follow? If possible, the head of the bed should be flat before you turn the person. The following can help keep you and the person safe when you turn him or her: ?? Use correct form. It is important to protect your lower back when you turn a person in bed. Keepyour feet a little wider than your shoulder width. Stand close to the person so you do not have to reach too far during the turn. Keep the person's head, torso, and legs in line during the turn. ?? Ask for help if needed. Ask the person to help as much as possible. Ask someone to help you if needed. You and your helpers can count out loud to 3 to coordinate efforts. ?? Move the person smoothly, without sudden movements. Quick changes in position can cause falls, injuries, or pain. You can also tear the person's skin if a movement is too quick or forceful. ?? Check medical equipment. You may need to move or secure tubes, medicine pumps, or monitors. Makesure nothing will come loose or break when you turn the person. Do not remove any equipment from the person unless the person's healthcare provider tells you to. How do I turn a person in bed? ?? Cross the person's arms over his or her chest. This prevents them from getting trapped under hisor her body during the turn. ?? Stand at the side of the bed, lower the bed rail (if needed), and face the person. Put a pillow between the person's knees. ?? If possible, ask the person to grab the opposite bed rail to help pull himself or herself onto his or her side. ?? Roll the edge of the sheet on your side and grab it. Pull the sheet up so the person slowly rolls from his or her back to his or her side. ?? Place pillows behind the person's back and buttocks to help keep him or her on his or her side comfortably. ?? Smooth the sheets so they are not wrinkled. Pull the bed rail up so it locks in place. ?? Make sure the person is comfortable and breathing easily. The person should not be in a positionthat cuts off circulation or is uncomfortable. You may to adjust the person's position. You also may need to add or adjust pillows. ?? Help the person move into a comfortable resting position in the bed, if needed. If you placed a slide sheet under the person, you can use it to change the person's position. Have someone help you by standing on the other side of the person's bed. You will each hold the slide sheet at the person's shoulder and knee levels. Move the sheet up, down, or to the side as needed so the person is comfortable. ?? Check all medical equipment to make sure it is running correctly. Make sure any alarms are turned on. Check for tubes or other equipment that needs to be adjusted after the turn. CARE AGREEMENT: You have the right to help plan your care. Learn about your health condition and how it may be treated. Discuss treatment options with your healthcare providers to decide what care you want to receive. You always have the right to refuse treatment. The above information is an educational therapist only. It is not intended as medical advice for individual conditions or treatments. Talk to your doctor, nurse or pharmacist before following any medical regimen to see if it is safe and effective for you. ?? Copyright [employer] 2019 Information is for End User's use only and may not be sold, redistributed or otherwise used for commercial purposes. All illustrations and images included in CareNotes?? are the copyrighted property of [employer] or [employer] Signed: Janene Mario CamSHMUEL-CORPORATE DIRECTOR 05/31/2019 documented in this encounter Discharge Instructions * Discharge Instructions* Janene Levy APRN-CORPORATE DIRECTOR - 05/31/2019 12:42 PM CDT Images from the original note were not included. PLASTIC SURGERY DISCHARGE INSTRUCTIONS - Bacitracin or Vaseline to right ear and nose lacerations 3-4x per day. - NO nose blowing until cleared to do so in clinic. - Sleep with head of bed elevated >30 degrees to decrease pain and swelling. - Please take your antibiotic (Ciprofloxacin) for 1 week after your time of injury. - Please contact our clinic to schedule an appointment with Dr. Turner/Evans/Isidro in 1-2 weeks. [place] need to call [phone] to schedule this appointment. Spinal Cord Injury WHAT YOU NEED TO KNOW: What do I need to know about a spinal cord injury (SCI)? Your spinal cord is protected by vertebraethat make up the spinal column. An SCI can happen if your spinal column presses down on or pinches your spinal cord. This causes swelling or bruising of your spinal cord. Damage to your spinal column, disease, or infection can cause an injury to your spinal cord. An SCI is referred to by a letter and a number. The letter represents the spinal column level where the injury occurred. The number represents which vertebrae is involved. What do I need to know about the spinal column levels? The spinal column usually has about 30 vertebrae. The column is divided into levels: ?? The cervical (C) region includes the 8 vertebrae (C1 to C8) that form the neck. ?? The thoracic (T) region includes the 12 vertebrae (T1 to T12) that form the upper to middle back. ?? The lumbar (L) region includes the 5 vertebrae (L1 to L5) that form the lower back. ?? The sacral (S) region includes the 5 vertebrae (S1 to S5) between the lumbar region and the tailbone. What are the types of SCI? An SCI may occur at any level. You have an incomplete injury if you havesome feeling or movement below the level of injury. You have a complete injury if you have no movement or feeling below the level of injury. ?? Tetraplegia usually happens at a level from C1 to T1. You may not have any feeling or movement of your arms and legs. You also may not be able to move your head and neck. This may also be called quadriplegia. ?? Paraplegia usually happens at a level from T2 to S5. You may have a loss of feeling or movement in your chest, stomach, hips, legs and feet. How is an SCI diagnosed? Your healthcare provider will do tests to see if you have any movement or feeling in your arms and legs. You may also need tests such as MRI, CT, or x-ray, to show any damageto your spinal cord. You may be given contrast material to help show the damage to your spinal cordbetter. Tell your healthcare providers if have ever had an allergic reaction to contrast material. What is the immediate treatment for an SCI? You may have to be put in a firm brace or have tractionto your spine. The brace and traction are used to prevent movement of your spinal column. Movement of your spinal column may cause more damage to your spinal cord. You may also need medicines to keepyou from moving. You may need a ventilator to help you breathe if your injury affects your lungs ordiaphragm. You may need surgery to remove the part of your spinal column that is damaging or blocking your spinal cord. What health problems are common with an SCI? These complications can become life-threatening: ?? Pressure injuries (bedsores) ?? Deep vein thrombosis ?? Hyperreflexia caused by an irritant to nerves below the level of injury ?? Lung conditions such as pneumonia, pulmonary blood clots, or a collapsed lung Why is rehabilitation after an SCI important? You will begin rehabilitation after your hospitalization. The goal of rehabilitation is to help you function with an SCI. The rehabilitation team includes the following: ?? A doctor who specializes in physical medicine and rehabilitation ?? Physical therapists who teach you exercises to build strength and use of adaptive devices, such as a wheelchair ?? Occupational therapists who teach you how to do activities of daily living, such as grooming andtoileting routines ?? Rehabilitation psychologists who help you cope emotionally with your SCI ?? Rehabilitation nurses, dietitians, social workers, and other specialists who monitor your condition CARE AGREEMENT: You have the right to help plan your care. Learn about your health condition and how it may be treated. Discuss treatment options with your healthcare providers to decide what care you want to receive. You always have the right to refuse treatment. The above information is an educational therapist only. It is not intended as medical advice for individual conditions or treatments. Talk to your doctor, nurse or pharmacist before following any medical regimen to see if it is safe and effective for you. ?? Copyright [employer] 2019 Information is for End User's use only and may not be sold, redistributed or otherwise used for commercial purposes. All illustrations and images included in CareNotes?? are the copyrighted property of [employer] or [employer] Facial Fracture WHAT YOU NEED TO KNOW: A facial fracture is a break in one or more of the bones in your face. A facial fracture may also damage nearby tissue. DISCHARGE INSTRUCTIONS: Call your local emergency number (911 in the ) if: ?? You suddenly feel lightheaded and short of breath. ?? You have chest pain when you take a deep breath or cough. ?? You cough up blood. Return to the emergency department if: ?? You suddenly have trouble chewing or swallowing. ?? You have clear or pinkish fluid draining from your nose or mouth. ?? You have numbness in your face. ?? You have worsening pain in your eye or face. ?? You have double vision or sudden trouble seeing. ?? Your arm or leg feels warm, tender, and painful. It may look swollen and red. Call your doctor if: ?? You are bleeding from a wound on your face. ?? You have questions or concerns about your condition or care. Medicines: You may need any of the following: ?? Decongestants help decrease swelling in your nose and sinuses. This medicine may also help you breathe easier. ?? Prescription pain medicine may be given. Ask your healthcare provider how to take this medicine safely. Some prescription pain medicines contain acetaminophen. Do not take other medicines that contain acetaminophen without talking to your healthcare provider. Too much acetaminophen may cause liver damage. Prescription pain medicine may cause constipation. Ask your healthcare provider how to prevent or treat constipation. ?? Steroids help decrease swelling in your face. ?? Antibiotics help treat an infection caused by bacteria. This medicine may be given if you have an open wound. ?? Take your medicine as directed. Contact your healthcare provider if you think your medicine is not helping or if you have side effects. Tell him or her if you are allergic to any medicine. Keep a list of the medicines, vitamins, and herbs you take. Include the amounts, and when and why you take them. Bring the list or the pill bottles to follow-up visits. Carry your medicine list with you in case of an emergency. Nutrition: You may not be able to eat solid food for a period of time. You may first be started on a liquid diet, starting with water, broth, gelatin, apple juice, or lemon-[place] soda pop. After a fewdays, you may be allowed to eat soft foods, such as applesauce, bananas, cooked cereal, cottage cheese, pudding, and yogurt. Ask for more information about the type of foods you can eat. Rehabilitation: If you had surgery to fix your facial fracture, you may need oral and facial rehabilitation. This is done to restore normal use and movement of your facial muscles. Ask for more information about rehabilitation. Self-care: ?? Apply ice as directed. Ice helps decrease swelling and pain. Ice may also help prevent tissue damage. Use an ice pack, or put crushed ice in a plastic bag. Cover the bag with a towel before you place it on your skin. Apply ice for 15 to 20 minutes every hour or as directed. ?? Keep your head elevated. Keep your head above the level of your heart as often as you can. This will help decrease swelling and pain. Prop your upper body on pillows or blankets to keep your head elevated comfortably. ?? Do not put pressure on your face: ? Do not sleep on the injured side of your face. Pressure may cause more damage. ? Sneeze with your mouth open to decrease pressure on your broken facial bones. Too much pressure from a sneeze may cause your broken bones to move and cause more damage. ? Try not to blow your nose. It may cause more damage if you have a fracture near your eye. The pressure from blowing your nose may pinch the nerve of your eye and cause permanent damage. ?? Clean your mouth carefully. It may be hard to clean your teeth if have an injury or fracture near your mouth. Your healthcare provider will show you the best way to do this so you do not hurt yourself. A waterpik or a child-sized soft toothbrush may work well to clean your mouth. Follow up with your doctor as directed: Write down your questions so you remember to ask them during your visits. ?? Copyright [employer] 2019 Information is for End User's use only and may not be sold, redistributed or otherwise used for commercial purposes. All illustrations and images included in CareNotes?? are the copyrighted property of [employer]. or [employer] The above information is an educational therapist only. It is not intended as medical advice for individual conditions or treatments. Talk to your doctor, nurse or pharmacist before following any medical regimen to see if it is safe and effective for you. Cervical Fracture WHAT YOU NEED TO KNOW: A cervical fracture is a break in a vertebra (bone) in your neck. The 7 cervical vertebrae are called C1 through C7. Cervical vertebrae support your head and allow your neck to bend and twist. The vertebrae enclose and protect the spinal cord. Nerves in the spinal cord control your ability to move. DISCHARGE INSTRUCTIONS: Call your local emergency number (911 in the ) or have someone else call if: ?? You feel lightheaded, short of breath, or have chest pain. ?? You cough up blood. ?? You cannot feel or move your arms or legs. Return to the emergency department if: ?? You have a sudden, severe headache with nausea and vomiting. ?? You are seeing double or suddenly cannot see. ?? You cannot stay awake. ?? The pins in your halo brace have loosened or look deeper in the skin than before. ?? You feel new weakness or numbness in your hands or fingers. ?? Your arm or leg feels warm, tender, and painful. It may look swollen and red. Call your doctor or neurologist if: ?? You have a fever. ?? You see a skin rash, redness, or sores under your brace. ?? You have problems swallowing while you are wearing your halo brace. ?? Your neck pain is not getting better even with treatment. ?? You have questions or concerns about your cervical fracture, medicine, or care. Medicines: ?? Prescription pain medicine may be given. Ask your healthcare provider how to take this medicine safely. Some prescription pain medicines contain acetaminophen. Do not take other medicines that contain acetaminophen without talking to your healthcare provider. Too much acetaminophen may cause liver damage. Prescription pain medicine may cause constipation. Ask your healthcare provider how to prevent or treat constipation. ?? Take your medicine as directed. Contact your healthcare provider if you think your medicine is not helping or if you have side effects. Tell him of her if you are allergic to any medicine. Keep a list of the medicines, vitamins, and herbs you take. Include the amounts, and when and why you take them. Bring the list or the pill bottles to follow-up visits. Carry your medicine list with you in case of an emergency. Therapy may be recommended. A physical therapist and an occupational therapist may exercise your arms, legs, and hands. They may also teach you new ways to do things around the house. A speech therapist may work with you to help you talk or swallow. Skin and brace care: Skin breakdown can lead to deep wounds caused by pressure or pulling on your skin. Check your chin, ears, back of your head, and shoulders for redness or sores if you are wearinga brace. Check the skin daily around halo brace pins for signs of infection, such as redness or bad-smelling drainage. Change your vest lining if it gets wet. Ask your healthcare provider how to care for your halo pins and vest. Ask your provider for more information about using a halo brace, semirigid collar, or soft collar. Follow up with your doctor or neurologist as directed: Write down your questions so you remember toask them during your visits. ?? Copyright [employer] 2019 Information is for End User's use only and may not be sold, redistributed or otherwise used for commercial purposes. All illustrations and images included in CareNotes?? are the copyrighted property of [email or web address]. or [employer] The above information is an educational therapist only. It is not intended as medical advice for individual conditions or treatments. Talk to your doctor, nurse or pharmacist before following any medical regimen to see if it is safe and effective for you. Stress WHAT YOU NEED TO KNOW: Stress is a feeling of tension or strain related to the events and pressures of everyday life. Learn to cope and control your stress to help you function in a healthy way. DISCHARGE INSTRUCTIONS: Call 911 for any of the following: ?? You feel like hurting yourself or someone else. ?? You feel you are overwhelmed and can no longer handle things by yourself. Contact your healthcare provider if: ?? You have trouble coping with your stress. ?? Your symptoms cause problems in your relationships. ?? You feel depressed. ?? You have trouble controlling your anger. ?? You have started to use alcohol, illegal drugs, or prescription medicines, or you increase your current use. ?? You have questions or concerns about your condition or care. Ways to manage your stress: Learn what causes you stress. Not all stress can be avoided. Instead, change how you cope with stress by doing any of the following: ?? Learn relaxation techniques, such as yoga, meditation, or listening to music. Take at least 30 minutes a day to do something you enjoy. This may include taking a bath or reading a book. ?? Do deep breathing exercises during times of increased stress. Sit up straight and take a slow, deep breath in through your nose. Then breathe out slowly through your mouth. Take twice as long to breathe out as you do when you breathe in. Repeat this a few times until you feel calmer or more focused. ?? Set realistic goals for yourself. Make a list of tasks and prioritize them. Focus on one task natalie time. ?? Talk to someone about things that upset you. Talk to a trusted friend, family member, or supportgroup. Try to stop yourself when you think negative, angry, or discouraging thoughts. ?? Take time to exercise. Start slowly, such as walking 1 to 2 blocks each day. Stretch and relax your muscles often. Ask about the best exercise plan for you. ?? Eat a variety of healthy foods. Healthy foods include fruits, vegetables, whole-grain breads, low-fat dairy products, beans, lean meats, and fish. Follow up with your healthcare provider as directed: Write down your questions so you remember to ask them during your visits. ?? Copyright [employer] 2019 Information is for End User's use only and may not be sold, redistributed or otherwise used for commercial purposes. All illustrations and images included in CareNotes?? are the copyrighted property of [employer]. or [employer] The above information is an educational therapist only. It is not intended as medical advice for individual conditions or treatments. Talk to your doctor, nurse or pharmacist before following any medical regimen to see if it is safe and effective for you. How to Prevent Pressure Injuries WHAT YOU NEED TO KNOW: A pressure injury is an injury to the skin or tissue over a bony area. A pressure injury is also called a pressure sore, bedsore, wound, or decubitus ulcer. Pressure injuries can form over any area but are most common on the back, buttocks, hips, and heels. DISCHARGE INSTRUCTIONS: Contact your healthcare provider if: ?? You have a fever. ?? You see red or purple skin over a bony area. ?? You see a blister or open sore over a bony area. ?? Your skin feels warm, spongy, or tight. ?? You have new pain, or pain that is getting worse. ?? You have questions or concerns about your condition or care. Help prevent a pressure injury: Ask your healthcare provider for more information on any of the following: ?? Check your skin several times each day. Check for red skin, or other color changes, over bony areas. Use a mirror if you have trouble seeing certain areas, or ask another person to look. ?? Change wet bedding and clothes right away. The wet material may rub against your skin and cause damage. ?? Change your position often. Change your position every 2 hours if you are in a bed all day. Change your position every hour if you are in a wheelchair all day. Set an alarm to help remind you whenit is time to turn. Keep a written turning schedule to help you remember to turn. If you are helping a person move in bed, lift him or her. Do not slide him or her. Keep the head of the bed as low aspossible. This may help prevent damage to the skin from sliding down in bed. ?? Protect the skin over bony areas. Use pillows or foam wedges to keep bony areas from touching, and to relieve pressure. For example, put a pillow or foam wedge between your knees to keep them frompressing on one another. Place a pillow or foam wedge under you to keep your hip raised when you lie on your side. Do not rest directly on your hipbone. Put a foam pad or pillow under your legs from calf to ankle when you lie on your back. The pad or pillow should raise your heels so that they are not touching the bed. ?? Use medical equipment and pads. A draw sheet or large pad under you may help others move you up in bed. An overhead trapeze can help you change positions in bed. Mattresses and overlays made to provide more cushioning may help decrease the risk of pressure injuries. Examples include a foam mattress pad and air or water mattresses. Ask about equipment that may be right for you and how you use it. ?? Keep your skin clean, dry, and moisturized. Use mild soap and warm water to clean your skin. Do not rub or scrub when you wash. Do not use products that contain alcohol, because they can dry out your skin. Gently pat your skin dry. Do not rub your skin with a towel. Apply lotion or a moisturizeron your skin often. ?? Eat a variety of healthy foods. Healthy foods include fruits, vegetables, whole-grain breads, and fish. Foods that are high in protein may help your pressure injury heal. This includes lean meats,beans, milk, yogurt, and cheese. Nutrition shakes may also give you extra calories and protein if you have trouble eating or are underweight. Follow up with your healthcare provider as directed: Write down your questions so you remember to ask them during your visits. ?? Copyright [employer] 2019 Information is for End User's use only and may not be sold, redistributed or otherwise used for commercial purposes. All illustrations and images included in CareNotes?? are the copyrighted property of [employer] or [employer] [place] The above information is an educational therapist only. It is not intended as medical advice for individual conditions or treatments. Talk to your doctor, nurse or pharmacist before following any medical regimen to see if it is safe and effective for you. How to Prevent Pressure Injuries WHAT YOU NEED TO KNOW: A pressure injury is an injury to the skin or tissue over a bony area. A pressure injury is also called a pressure sore, bedsore, wound, or decubitus ulcer. Pressure injuries can form over any area but are most common on the back, buttocks, hips, and heels. DISCHARGE INSTRUCTIONS: Contact your healthcare provider if: ?? You have a fever. ?? You see red or purple skin over a bony area. ?? You see a blister or open sore over a bony area. ?? Your skin feels warm, spongy, or tight. ?? You have new pain, or pain that is getting worse. ?? You have questions or concerns about your condition or care. Help prevent a pressure injury: Ask your healthcare provider for more information on any of the following: ?? Check your skin several times each day. Check for red skin, or other color changes, over bony areas. Use a mirror if you have trouble seeing certain areas, or ask another person to look. ?? Change wet bedding and clothes right away. The wet material may rub against your skin and cause damage. ?? Change your position often. Change your position every 2 hours if you are in a bed all day. Change your position every hour if you are in a wheelchair all day. Set an alarm to help remind you whenit is time to turn. Keep a written turning schedule to help you remember to turn. If you are helping a person move in bed, lift him. Do not slide him. Keep the head of the bed as low as possible. This may help prevent damage to the skin from sliding down in bed. ?? Protect the skin over bony areas. Use pillows or foam wedges to keep bony areas from touching, and to relieve pressure. For example, put a pillow or foam wedge between your knees to keep them frompressing on one another. Place a pillow or foam wedge under you to keep your hip raised when you lie on your side. Do not rest directly on your hipbone. Put a foam pad or pillow under your legs from calf to ankle when you lie on your back. The pad or pillow should raise your heels so that they are not touching the bed. ?? Use medical equipment and pads. A draw sheet or large pad under you may help others move you up in bed. An overhead trapeze can help you change positions in bed. Mattresses and overlays made to provide more cushioning may help decrease the risk of pressure injuries. Examples include a foam mattress pad and air or water mattresses. Ask about equipment that may be right for you and how you use it. ?? Keep your skin clean, dry, and moisturized. Use mild soap and warm water to clean your skin. Do not rub or scrub when you wash. Do not use products that contain alcohol, because they can dry out your skin. Gently pat your skin dry. Do not rub your skin with a towel. Apply lotion or a moisturizeron your skin often. ?? Eat a variety of healthy foods. Healthy foods include fruits, vegetables, whole-grain breads, and fish. Foods that are high in protein may help your pressure injury heal. This includes lean meats,beans, milk, yogurt, and cheese. Nutrition shakes may also give you extra calories and protein if you have trouble eating or are underweight. Follow up with your healthcare provider as directed: Write down your questions so you remember to ask them during your visits. ?? Copyright [employer] 2019 Information is for End User's use only and may not be sold, redistributed or otherwise used for commercial purposes. All illustrations and images included in CareNotes?? are the copyrighted property of [employer]. or [employer] The above information is an educational therapist only. It is not intended as medical advice for individual conditions or treatments. Talk to your doctor, nurse or pharmacist before following any medical regimen to see if it is safe and effective for you. How to Prevent Pressure Injuries WHAT YOU NEED TO KNOW: What is a pressure injury? A pressure injury is an injury to the skin or tissue over a bony area. Apressure injury is also called a pressure sore, bedsore, wound, or decubitus ulcer. Pressure injuries can form over any area but are most common on the back, buttocks, hips, and heels. What causes pressure injuries? ?? Continuous pressure builds when you sit or lie on a bony area for too long. Pressure slows or stops the blood from flowing to the skin. This may hurt the skin and cause tissue damage. Pressure canstart to cause damage to your skin and tissue about 2 hours after staying in the same position. ?? Shearing or friction happens when delicate skin is dragged across a surface, such as sheets. This may cause your skin to tear or a blister to form. Sliding up or down in bed or moving from the bedto a chair may tear your skin. Muscle spasms may cause your arms or legs to jerk and rub the sheets, causing tears in your skin. What increases my risk for a pressure injury? ?? Long periods of time without moving ?? Short periods of increased pressure, such as sitting in a wheelchair ?? Not being able to control your urine or bowel movements ?? Dehydration or poor nutrition ?? Numbness ?? Poor blood flow to your limbs ?? Age over 65 years ?? Previous pressure injury What can I do to help prevent a pressure injury? Ask your healthcare provider for more information on any of the following: ?? Check your skin several times each day. Check for red skin, or other color changes, over bony areas. Use a mirror if you have trouble seeing certain areas, or ask another person to look. ?? Change wet bedding and clothes right away. The wet material may rub against your skin and cause damage. ?? Change your position often. Change your position every 2 hours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 12:53 AM [facility] Eosinophils % 0.3 0.0 - 6.0 % 05/30/2019 12:53 AM [facility] Basophil % 0.4 0.0 - 1.5 % 05/30/2019 12:53 AM [facility] Neutrophils Absolute 7.9(H) 1.6 - 7.0 10? 3 /uL 05/30/2019 12:53 AM [facility] Lymphocyte Absolute 1.7 0.8 - 2.9 10? 3 /uL 05/30/2019 12:53 AM [facility] Monocytes Absolute 1.03(H) 0.14 - 0.66 10? 3 /uL 05/30/2019 12:53 AM [facility] Eosinophils Absolute 0.03 0.00 - 0.45 10? 3 /uL 05/30/2019 12:53 AM [facility] Basophils Absolute 0.04 0.00 - 0.06 10? 3 /uL 05/30/2019 12:53 AM [facility] Immature Granulocytes % 1.6(H) 0.0 - 1.0 % 05/30/2019 12:53 AM [facility] Blood BLOOD SPECIMEN / Unknown Lab Venipuncture / Unknown 05/30/2019 12:33 AM CDT 05/30/2019 12:44 AM CDT Sangeetha Berman MD LAB - HEMATOLOGY ORD ERABLES Performing Organization Address City/State/[facility] Co de Phone Number [facility] [address] [phone] * BASIC METABOLIC PANEL (CALCIUM TOTAL) (05/30/2019 12:33 AM CDT) BUN 15 7 - 26 mg/dL 05/30/2019 1:11 AM [facility] Creatinine 0.9 0.6 - 1.2 mg/dL 05/30/2019 1:11 AM [facility] Sodium 136 136 - 145 mmol/L 05/30/2019 1:11 AM [facility] Potassium 4.1 3.5 - 4.5 mmol/L 05/30/2019 1:11 AM [facility] Chloride 100 98 - 107 mmol/L 05/30/2019 1:11 AM [facility] CO2 24 22 - 29 mmol/L 05/30/2019 1:11 AM [facility] Glucose 101 70 - 115 mg/dL 05/30/2019 1:11 AM [facility] Calcium 8.5 8.4 - 10.2 mg/dL 05/30/2019 1:11 AM [facility] Anion Gap 16 8 - 18 05/30/2019 1:11 AM [facility] BUN/Creatinine Ratio 17 7 - 23 05/30/2019 1:11 AM [facility] Osmolality Calculated 283 270 - 300 mOsm/kg 05/30/2019 1:11 AM [facility] eGFR >60 >60 mL/min/1.7 3 m2 05/30/2019 1:11 AM [facility] Blood BLOOD SPECIMEN / Unknown Lab Venipuncture / Unknown 05/30/2019 12:33 AM CDT 05/30/2019 12:45 AM [facility] Sangeetha Berman MD LAB - CHEMISTRY ALEXIS DEVRIES [facility] Organization Address City/State/ZIP Co de Phone Number [address] [phone] * (ABNORMAL) URINALYSIS REFLEX TO MICROSCOPIC NO CULTURE (05/29/2019 11:29 AM T) Color UA Yellow Straw, Yellow, Colorless 05/29/2019 11:55 AM [facility] Clarity UA Clear Clear, t Cloudy 05/29/2019 11:55 AM [facility] Specific [place] UA 1.019 1.005 - 1.030 05/29/2019 11:55 AM [facility] pH UA 6.0 5.0 - 8.0 pH 05/29/2019 11:55 AM [facility] Protein UA Negative Negative mg/dL 05/29/2019 11:55 AM [facility] Glucose UA Negative Negative mg/dL 05/29/2019 11:55 AM [facility] Ketone UA Trace(A) Negative mg/dL 05/29/2019 11:55 AM T [facility] Bilirubin UA Negative Negative mg/dL 05/29/2019 11:55 AM T [facility] Blood UA 2+(A) Negative 05/29/2019 11:55 AM T [facility] Nitrite UA Negative Negative 05/29/2019 11:55 AM [facility] Leukocyte Esterase Negative Negative 05/29/2019 11:55 AM T [facility] Urobilinogen UA 4.0(A) Negative mg/dL 05/29/2019 11:55 AM T [facility] RBC UA 6-10(A) None Seen, 0-2, 3-5 /HPF 05/29/2019 11:55 AM [facility] WBC UA 0-5 None Seen, 0-5 /HPF 05/29/2019 11:55 AM [facility] Squamous Epithelial Cells UA None Seen None Seen, 0-2 /HPF 05/29/2019 11:55 AM [facility] Mucus UA 1+ None, 1+ /LPF 05/29/2019 11:55 AM T [facility] Urine URINE SPECIMEN OBTAINED BY SINGLE CATHETERIZATION OF URINARY BLADDER / Unknown Collection / Unknown 05/29/2019 11:29 AM CDT 05/29/2019 11:45 AM CDT Narrative [facility] - 05/29/2019 11:55 AM CDT Joseph Sarabia DO LAB - URINALYSIS ORD ERABLES Performing Organization Address City/State/[facility] Co de Phone Number [facility] [address] [phone] * XR CHEST 1VW PORTABLE (05/29/2019 5:08 AM CDT) Anatomical Region Laterality Modality Chest Radiographic Radha ging 05/29/2019 8:58 AM CDT Impressions 05/30/2019 8:36 AM CDT FINDINGS/IMPRESSION: Left basilar atelectasis/airspace disease is not significantly changed from the prior exam accounting for differences in technique. A small left effusion is likely present. The right lung is clear. There is no pneumothorax detected on this supine view. The cardiomediastinal silhouette is normal. Cervical fusion hardware is partially imaged. Dictated by Shaji Nugent MD (Resident). I, Dr. ESPERANZA CALZADA M.D. have personally reviewed and interpreted this examination/study. This report was electronically signed by ESPERANZA CALZADA M.D. ??on 05/30/2019 8:36 AM . Narrative 05/30/2019 8:36 AM CDT EXAMINATION: XR CHEST 1VW PORTABLE HISTORY: S12.301A: Closed nondisplaced fracture of fourth cervical vertebra, unspecified fracture morphology, initial encounter COMPARISON: 05/28/2019. Procedure Note Esperanza Calzada MD - 05/30/2019 EXAMINATION: XR CHEST 1VW PORTABLE HISTORY: S12.301A: Closed nondisplaced fracture of fourth cervical vertebra, unspecified fracture morphology, initial encounter COMPARISON: 05/28/2019. FINDINGS/IMPRESSION: Left basilar atelectasis/airspace disease is not significantly changed from the prior exam accounting for differences in technique. A smallleft effusion is likely present. The right lung is clear. There is no pneumothorax detected on this supine view. The cardiomediastinal silhouette is normal. Cervical fusion hardware is partially imaged. Dictated by Shaji Nugent MD (Resident). IDr. ESPERANZA M.D. have personally reviewed and interpretedthis examination/study. This report was electronically signed by ESPERANZA CALZADA M.D. on 05/30/2019 8:36 AM . Ruby Heath MD DIAGNOSTIC IMAGIN G ORDERABLES * PHOSPHORUS BLOOD (05/29/2019 12:14 AM CDT) Phosphorus 2.8 2.3 - 4.7 mg/dL 05/29/2019 12:46 AM CDT [facility] Blood BLOOD SPECIMEN / Unknown Lab Venipuncture / Unknown 05/29/2019 12:14 AM CDT 05/29/2019 12:27 AM CDT Sangeetha Berman MD LAB - CHEMISTRY ALEXIS DEVRIES [facility] Organization Address City/State/ZIP Co de Phone Number [address] [phone] * MAGNESIUM BLOOD (05/29/2019 12:14 AM CDT) Pathologist [facility] Magnesium 2.4 1.6 - 2.6 mg/dL 05/29/2019 12:46 AM [facility] Blood BLOOD SPECIMEN / Unknown Lab Venipuncture / Unknown 05/29/2019 12:14 AM CDT 05/29/2019 12:27 AM CDT Sangeetha Berman MD LAB - CHEMISTRY ALEXIS DEVRIES [facility] Organization Address City/State/ZIP Co de Phone Number [facility] [address] [phone] * (ABNORMAL) CBC W AUTO DIFFERENTIAL (05/29/2019 12:14 AM CDT) Pathologist [facility] WBC 9.9 3.5 - 10.5 10? 3 /uL 05/29/2019 12:31 AM [facility] RBC 3.42(L) 4.30 - 5.70 10? 6 /uL 05/29/2019 12:31 AM [facility] Hemoglobin 9.5(L) 13.5 - 17.5 g/dL 05/29/2019 12:31 AM [facility] Hematocrit 29.1(L) 39.0 - 50.0 % 05/29/2019 12:31 AM [facility] MCV 85.1 81.0 - 97.0 fL 05/29/2019 12:31 AM [facility] MCH 27.8(L) 28.0 - 34.0 pg 05/29/2019 12:31 AM [facility] MCHC 32.6 32.0 - 36.0 g/dL 05/29/2019 12:31 AM [facility] Platelet Count 162 150 - 400 10? 3 /uL 05/29/2019 12:31 AM [facility] RDW-SD 40.9 36.0 - 50.0 fL 05/29/2019 12:31 AM [facility] RDW-CV 13.2 11.2 - 14.8 % 05/29/2019 12:31 AM [facility] MPV 11.0 9.3 - 12.8 fL 05/29/2019 12:31 AM [facility] nRBC Absolute 0.00 0 10? 3 /uL 05/29/2019 12:31 AM [facility] nRBC Auto 0.0 0 /100 WBC 05/29/2019 12:31 AM [facility] Neutrophils % 70.1(H) 35.0 - 70.0 % 05/29/2019 12:31 AM [facility] Lymphocytes % 18.1(L) 19.7 - 55.1 % 05/29/2019 12:31 AM [facility] Monocytes % 10.3 3.0 - 15.0 % 05/29/2019 12:31 AM [facility] Eosinophils % 0.1 0.0 - 6.0 % 05/29/2019 12:31 AM [facility] Basophil % 0.3 0.0 - 1.5 % 05/29/2019 12:31 AM [facility] Neutrophils Absolute 7.0 1.6 - 7.0 10? 3 /uL 05/29/2019 12:31 AM [facility] Lymphocyte Absolute 1.8 0.8 - 2.9 10? 3 /uL 05/29/2019 12:31 AM [facility] Monocytes Absolute 1.02(H) 0.14 - 0.66 10? 3 /uL 05/29/2019 12:31 AM [facility] Eosinophils Absolute 0.01 0.00 - 0.45 10? 3 /uL 05/29/2019 12:31 AM [facility] Basophils Absolute 0.03 0.00 - 0.06 10? 3 /uL 05/29/2019 12:31 AM [facility] Immature Granulocytes % 1.1(H) 0.0 - 1.0 % 05/29/2019 12:31 AM [facility] Blood BLOOD SPECIMEN / Unknown Lab Venipuncture / Unknown 05/29/2019 12:14 AM CDT 05/29/2019 12:27 AM T Sangeetha Berman MD LAB - HEMATOLOGY ORD ERABLES [place] [id number] [address] [phone] * (ABNORMAL) BASIC METABOLIC PANEL (CALCIUM TOTAL) (05/29/2019 12:14 AM CDT) BUN 14 7 - 26 mg/dL 05/29/2019 12:46 AM [facility] Creatinine 0.8 0.6 - 1.2 mg/dL 05/29/2019 12:46 AM [facility] Sodium 137 136 - 145 mmol/L 05/29/2019 12:46 AM [facility] Potassium 3.9 3.5 - 4.5 mmol/L 05/29/2019 12:46 AM [facility] Chloride 102 98 - 107 mmol/L 05/29/2019 12:46 AM [facility] CO2 24 22 - 29 mmol/L 05/29/2019 12:46 AM [facility] Glucose 108 70 - 115 mg/dL 05/29/2019 12:46 AM [facility] Calcium 8.0(L) 8.4 - 10.2 mg/dL 05/29/2019 12:46 AM [facility] Anion Gap 15 8 - 18 05/29/2019 12:46 AM [facility] BUN/Creatinine Ratio 18 7 - 23 05/29/2019 12:46 AM [facility] Osmolality Calculated 285 270 - 300 mOsm/kg 05/29/2019 12:46 AM [facility] eGFR >60 >60 mL/min/1.7 3 m2 05/29/2019 12:46 AM [facility] Blood BLOOD SPECIMEN / Unknown Lab Venipuncture / Unknown 05/29/2019 12:14 AM CDT 05/29/2019 12:27 AM CDT Sangeetha Berman MD LAB - CHEMISTRY ALEIXS DEVRIES [facility] Organization Address City/State/[place] [address], [facility] [phone] * XR CHEST 1VW (05/28/2019 4:49 AM CDT) Anatomical Region Laterality Modality Chest Radiographic Radha ging 05/28/2019 9:03 AM CDT Impressions 05/28/2019 2:43 PM CDT FINDINGS/IMPRESSION: Persistent left hemidiaphragmatic elevation with airspace opacity/atelectasis in the left lower lobe. ??A small associated left pleural effusion cannot be excluded. There is no focal consolidation, right pleural effusion, or pneumothorax. The cardiomediastinal silhouette is normal. Dictated by Easton Lam MD (finance vice president). Dr. Rico Barnes M.D. have personally reviewed [...] is normal. Dictated by Easton Lam MD (finance vice president). Dr. Rico Barnes M.D. have personally reviewed and interpretedthis examination/study. This report was electronically signed by Rico KLINE M.D. on 05/28/2019 2:43 PM . Sangeetha Berman MD DIAGNOSTIC IMAGING O RDERABLES * PHOSPHORUS BLOOD (05/28/2019 12:04 AM CDT) Phosphorus 3.4 2.3 - 4.7 mg/dL 05/28/2019 1:18 AM CDT [facility] Blood BLOOD SPECIMEN / Unknown Venipuncture / Unknown 05/28/2019 12:04 AM CDT 05/28/2019 12:08 AM CDT Sangeetha Berman MD LAB - CHEMISTRY ALEXIS DEVRIES [address] [phone] * MAGNESIUM BLOOD (05/28/2019 12:04 AM CDT) Magnesium 1.9 1.6 - 2.6 mg/dL 05/28/2019 1:18 AM [facility] Blood BLOOD SPECIMEN / Unknown Venipuncture / Unknown 05/28/2019 12:04 AM CDT 05/28/2019 12:08 AM CDT Sangeetha Berman MD LAB - CHEMISTRY ALEXIS DEVRIES Performing Organization Address City/[facility]/ZIP Co de Phone Number [address] [phone] * (ABNORMAL) CBC W AUTO DIFFERENTIAL (05/28/2019 12:04 AM CDT) WBC 8.0 3.5 - 10.5 10? 3 /uL 05/28/2019 12:15 AM [facility] RBC 3.81(L) 4.30 - 5.70 10? 6 /uL 05/28/2019 12:15 AM [facility] Hemoglobin 10.6(L) 13.5 - 17.5 g/dL 05/28/2019 12:15 AM [facility] Hematocrit 32.3(L) 39.0 - 50.0 % 05/28/2019 12:15 AM [facility] MCV 84.8 81.0 - 97.0 fL 05/28/2019 12:15 AM [facility] MCH 27.8(L) 28.0 - 34.0 pg 05/28/2019 12:15 AM [facility] MCHC 32.8 32.0 - 36.0 g/dL 05/28/2019 12:15 AM [facility] Platelet Count 167 150 - 400 10? 3 /uL 05/28/2019 12:15 AM [facility] RDW-SD 39.7 36.0 - 50.0 fL 05/28/2019 12:15 AM [facility] RDW-CV 12.9 11.2 - 14.8 % 05/28/2019 12:15 AM [facility] MPV 11.0 9.3 - 12.8 fL 05/28/2019 12:15 AM [facility] nRBC Absolute 0.00 0 10? 3 /uL 05/28/2019 12:15 AM [facility] nRBC Auto 0.0 0 /100 WBC 05/28/2019 12:15 AM [facility] Neutrophils % 86.5(H) 35.0 - 70.0 % 05/28/2019 12:15 AM [facility] Lymphocytes % 7.5(L) 19.7 - 55.1 % 05/28/2019 12:15 AM [facility] Monocytes % 5.3 3.0 - 15.0 % 05/28/2019 12:15 AM [facility] Eosinophils % 0.0 0.0 - 6.0 % 05/28/2019 12:15 AM [facility] Basophil % 0.1 0.0 - 1.5 % 05/28/2019 12:15 AM [facility] Neutrophils Absolute 6.9 1.6 - 7.0 10? 3 /uL 05/28/2019 12:15 AM [facility] Lymphocyte Absolute 0.6(L) 0.8 - 2.9 10? 3 /uL 05/28/2019 12:15 AM [facility] Monocytes Absolute 0.42 0.14 - 0.66 10? 3 /uL 05/28/2019 12:15 AM [facility] Eosinophils Absolute 0.00 0.00 - 0.45 10? 3 /uL 05/28/2019 12:15 AM [facility] Basophils Absolute 0.01 0.00 - 0.06 10? 3 /uL 05/28/2019 12:15 AM [facility] Immature Granulocytes % 0.6 0.0 - 1.0 % 05/28/2019 12:15 AM [facility] Blood BLOOD SPECIMEN / Unknown Venipuncture / Unknown 05/28/2019 12:04 AM CDT 05/28/2019 12:08 AM CDT Sangeetha Berman MD LAB - HEMATOLOGY JULIEN [facility] [address] [phone] * (ABNORMAL) BASIC METABOLIC PANEL (CALCIUM TOTAL) (05/28/2019 12:04 AM CDT) BUN 12 7 - 26 mg/dL 05/28/2019 1:18 AM [facility] Creatinine 0.9 0.6 - 1.2 mg/dL 05/28/2019 1:18 AM [facility] Sodium 143 136 - 145 mmol/L 05/28/2019 1:18 AM [facility] Potassium 4.0 3.5 - 4.5 mmol/L 05/28/2019 1:18 AM [facility] Chloride 108(H) 98 - 107 mmol/L 05/28/2019 1:18 AM [facility] CO2 25 22 - 29 mmol/L 05/28/2019 1:18 AM [facility] Glucose 123(H) 70 - 115 mg/dL 05/28/2019 1:18 AM [facility] Calcium 8.4 8.4 - 10.2 mg/dL 05/28/2019 1:18 AM [facility] Anion Gap 14 8 - 18 05/28/2019 1:18 AM [facility] BUN/Creatinine Ratio 13 7 - 23 05/28/2019 1:18 AM [facility] Osmolality Calculated 297 270 - 300 mOsm/kg 05/28/2019 1:18 AM [facility] eGFR >60 >60 mL/min/1.7 3 m2 05/28/2019 1:18 AM [facility] Blood BLOOD SPECIMEN / Unknown Venipuncture / Unknown 05/28/2019 12:04 AM CDT 05/28/2019 12:08 AM CDT Sangeetha Berman MD LAB - CHEMISTRY ALEXIS DEVRIES [address] [phone] * [place] OARM SURGERY (05/27/2019 4:58 PM CDT) Narrative [facility] - 05/27/2019 4:59 PM CDT Fluoroscopy was used for this exam in the OR. Please see the Operative report. Esperanza Kim MD FLUOROSCOPY ORDERABL ES [facility] * (ABNORMAL) BLOOD GASES ART COMPLETE [facility] OR (05/27/2019 4:12 PM CDT) pH Arterial 7.49(H) 7.35 - 7.45 05/27/2019 4:22 PM [facility] pCO2 Arterial 33(L) 35 - 45 mmHg 05/27/2019 4:22 PM [facility] pO2 Arterial 144(H) 77 - 101 mmHg 05/27/2019 4:22 PM [facility] HCO3 Arterial 24.4 22.0 - 26.0 mmol/L 05/27/2019 4:22 PM [facility] TCO2 Arterial 25.5 25.0 - 29.0 mmol/L 05/27/2019 4:22 PM [facility] Base Excess Arterial 1.4 -2.0 - 2.0 mmol/L 05/27/2019 4:22 PM [facility] Hemoglobin Arterial 10.7(L) 13.5 - 17.5 g/dL 05/27/2019 4:22 PM [facility] Oxyhemoglobin Arterial 97.4 95.0 - 100.0 % 05/27/2019 4:22 PM [facility] Carboxyhemoglobin 0.1 0.0 - 3.0 % 05/27/2019 4:22 PM [facility] Methemoglobin 0.2 0.0 - 2.0 % 05/27/2019 4:22 PM [facility] FI O2 Arterial 30.0 % 05/27/2019 4:22 PM [facility] Ionized Calcium Whole Blood 1.10 mmol/L 05/27/2019 4:22 PM [facility] Adjusted Ionized Calcium 1.15(L) 1.19 - 1.34 mmol/L 05/27/2019 4:22 PM CDT [facility] Sodium Whole Blood 142 135 - 145 mmol/L 05/27/2019 4:22 PM T [facility] Potassium Whole Blood 3.8 3.5 - 5.5 mmol/L 05/27/2019 4:22 PM [facility] Chloride Whole Blood 114(H) 101 - 111 mmol/L 05/27/2019 4:22 PM [facility] Glucose Whole Blood 118(H) 70 - 110 mg/dL 05/27/2019 4:22 PM [facility] Lactic Acid Whole Blood 1.4 0.5 - 3.4 mmol/L 05/27/2019 4:22 PM [facility] Blood ARTERIAL BLOOD SPECIMEN / Unknown Venipuncture / Unknown 05/27/2019 4:12 PM CDT 05/27/2019 4:20 PM CDT Angelito Boston MD LAB - BLOOD GASES OR DERABLES Performing Organization Address City/State/[facility] Co de Phone Number [address] [phone] * (ABNORMAL) CBC W/O DIFFERENTIAL (05/27/2019 2:37 PM CDT) WBC 6.3 3.5 - 10.5 10? 3 /uL 05/27/2019 2:42 PM [facility] RBC 3.96(L) 4.30 - 5.70 10? 6 /uL 05/27/2019 2:42 PM [facility] Hemoglobin 11.3(L) 13.5 - 17.5 g/dL 05/27/2019 2:42 PM [facility] Hematocrit 33.1(L) 39.0 - 50.0 % 05/27/2019 2:42 PM [facility] MCV 83.6 81.0 - 97.0 fL 05/27/2019 2:42 PM [facility] MCH 28.5 28.0 - 34.0 pg 05/27/2019 2:42 PM [facility] MCHC 34.1 32.0 - 36.0 g/dL 05/27/2019 2:42 PM CDT [facility] Platelet Count 156 150 - 400 10? 3 /uL 05/27/2019 2:42 PM CDT [facility] RDW-SD 39.5 36.0 - 50.0 fL 05/27/2019 2:42 PM CDT [facility] RDW-CV 12.9 11.2 - 14.8 % 05/27/2019 2:42 PM CDT [facility] MPV 11.2 9.3 - 12.8 fL 05/27/2019 2:42 PM CDT [facility] nRBC Absolute 0.00 0 10? 3 /uL 05/27/2019 2:42 PM CDT [facility] nRBC Auto 0.0 0 /100 WBC 05/27/2019 2:42 PM CDT [facility] Blood BLOOD SPECIMEN / Unknown Venipuncture / Unknown 05/27/2019 2:37 PM CDT 05/27/2019 2:39 PM CDT Susana Uriarte MD LAB - HEMATOLOGY ORD ERABLES [address] [phone] * XR CHEST 1VW PORTABLE (05/27/2019 5:31 AM CDT) Anatomical Region Laterality Modality Chest Radiographic Radha ging 05/27/2019 10:2 0 AM CDT Impressions 05/27/2019 2:52 PM CDT FINDINGS/IMPRESSION: The left hemidiaphragm is elevated. There is no focal consolidation, pleural effusion, or pneumothorax. The cardiomediastinal silhouette is normal. Report dictated by Beltran Mcdermott (finance vice president) Dr. AL Barnes MD have personally reviewed and interpreted this examination/study. This report was electronically signed by AL LAWTON MD ??on 05/27/2019 2:52 PM . Narrative 05/27/2019 2:52 PM CDT EXAMINATION: XR CHEST 1VW PORTABLE HISTORY: T14.90XA: Trauma COMPARISON: Comparison is made with a study from 05/25/2019. Procedure Note Al Lawton MD - 05/27/2019 EXAMINATION: XR CHEST 1VW PORTABLE HISTORY: T14.90XA: Trauma COMPARISON: Comparison is made with a study from 05/25/2019. FINDINGS/IMPRESSION: The left hemidiaphragm is elevated. There is no focal consolidation, pleural effusion, or pneumothorax. The cardiomediastinal silhouette is normal. Report dictated by Beltran Mcdermott (finance vice president) IDr. AL MD have personally reviewed and interpreted this examination/study. This report was electronically signed by AL LAWTON MD on05/27/2019 2:52 PM . Ruby Heath MD DIAGNOSTIC IMAGIN G ORDERABLES * PT-INR [facility] (05/27/2019 3:56 AM CDT) PT 13.9 12.1 - 14.8 Seconds 05/27/2019 4:17 AM CDT [facility] INR 1.1 See Comment 05/27/2019 4:17 AM CDT [facility] Comment:The suggested therap eutic range for standard coumadin (warfarin) therapy is an INR of 2.0-3.0. For high-risk patients (Mechanical Mitral Valve Prosthesis, etc.), the suggested prophylactic therapeutic range is an INR of 2.5-3.5. Blood BLOOD SPECIMEN / Unknown Lab Venipuncture / Unknown 05/27/2019 3:56 AM CDT 05/27/2019 4:02 AM CDT Godfrey Tinsley MD LAB - COAGULATION OR DERABLES [address] [phone] * PHOSPHORUS BLOOD (05/27/2019 3:56 AM CDT) Phosphorus 2.8 2.3 - 4.7 mg/dL 05/27/2019 4:35 AM CDT [facility] Blood BLOOD SPECIMEN / Unknown Lab Venipuncture / Unknown 05/27/2019 3:56 AM CDT 05/27/2019 4:02 AM CDT Ruby Heath MD LAB - CHEMISTRY O RDERABLES [address] [phone] * MAGNESIUM BLOOD (05/27/2019 3:56 AM CDT) Magnesium 1.9 1.6 - 2.6 mg/dL 05/27/2019 4:35 AM T [facility] Blood BLOOD SPECIMEN / Unknown Lab Venipuncture / Unknown 05/27/2019 3:56 AM CDT 05/27/2019 4:02 AM CDT Ruby Heath MD LAB - CHEMISTRY O DAVIDERAJACOB Performing Organization Address [facility]/ZIP Co de Phone Number [address] [phone] * (ABNORMAL) CBC W AUTO DIFFERENTIAL (05/27/2019 3:56 AM CDT) WBC 9.2 3.5 - 10.5 10? 3 /uL 05/27/2019 4:16 AM [facility] RBC 4.15(L) 4.30 - 5.70 10? 6 /uL 05/27/2019 4:16 AM [facility] Hemoglobin 11.4(L) 13.5 - 17.5 g/dL 05/27/2019 4:16 AM [facility] Hematocrit 34.8(L) 39.0 - 50.0 % 05/27/2019 4:16 AM [facility] MCV 83.9 81.0 - 97.0 fL 05/27/2019 4:16 AM [facility] MCH 27.5(L) 28.0 - 34.0 pg 05/27/2019 4:16 AM [facility] MCHC 32.8 32.0 - 36.0 g/dL 05/27/2019 4:16 AM [facility] Platelet Count 167 150 - 400 10? 3 /uL 05/27/2019 4:16 AM [facility] RDW-SD 40.2 36.0 - 50.0 fL 05/27/2019 4:16 AM [facility] RDW-CV 13.2 11.2 - 14.8 % 05/27/2019 4:16 AM [facility] MPV 11.2 9.3 - 12.8 fL 05/27/2019 4:16 AM [facility] nRBC Absolute 0.00 0 10? 3 /uL 05/27/2019 4:16 AM [facility] nRBC Auto 0.0 0 /100 WBC 05/27/2019 4:16 AM [facility] Neutrophils % 75.6(H) 35.0 - 70.0 % 05/27/2019 4:16 AM [facility] Lymphocytes % 14.8(L) 19.7 - 55.1 % 05/27/2019 4:16 AM [facility] Monocytes % 8.9 3.0 - 15.0 % 05/27/2019 4:16 AM [facility] Eosinophils % 0.2 0.0 - 6.0 % 05/27/2019 4:16 AM [facility] Basophil % 0.2 0.0 - 1.5 % 05/27/2019 4:16 AM [facility] Neutrophils Absolute 6.9 1.6 - 7.0 10? 3 /uL 05/27/2019 4:16 AM [facility] Lymphocyte Absolute 1.4 0.8 - 2.9 10? 3 /uL 05/27/2019 4:16 AM [facility] Monocytes Absolute 0.81(H) 0.14 - 0.66 10? 3 /uL 05/27/2019 4:16 AM [facility] Eosinophils Absolute 0.02 0.00 - 0.45 10? 3 /uL 05/27/2019 4:16 AM [facility] Basophils Absolute 0.02 0.00 - 0.06 10? 3 /uL 05/27/2019 4:16 AM [facility] Immature Granulocytes % 0.3 0.0 - 1.0 % 05/27/2019 4:16 AM [facility] Blood BLOOD SPECIMEN / Unknown Lab Venipuncture / Unknown 05/27/2019 3:56 AM CDT 05/27/2019 4:02 AM CDT Ruby Heath MD LAB - HEMATOLOGY ORDERABLES [facility] [address] [phone] * (ABNORMAL) BASIC METABOLIC PANEL (CALCIUM TOTAL) (05/27/2019 3:56 AM CDT) BUN 12 7 - 26 mg/dL 05/27/2019 4:35 AM [facility] Creatinine 0.9 0.6 - 1.2 mg/dL 05/27/2019 4:35 AM [facility] Sodium 137 136 - 145 mmol/L 05/27/2019 4:35 AM [facility] Potassium 3.8 3.5 - 4.5 mmol/L 05/27/2019 4:35 AM [facility] Chloride 104 98 - 107 mmol/L 05/27/2019 4:35 AM [facility] CO2 24 22 - 29 mmol/L 05/27/2019 4:35 AM [facility] Glucose 110 70 - 115 mg/dL 05/27/2019 4:35 AM [facility] Calcium 8.1(L) 8.4 - 10.2 mg/dL 05/27/2019 4:35 AM [facility] Anion Gap 13 8 - 18 05/27/2019 4:35 AM [facility] BUN/Creatinine Ratio 13 7 - 23 05/27/2019 4:35 AM [facility] Osmolality Calculated 284 270 - 300 mOsm/kg 05/27/2019 4:35 AM [facility] eGFR >60 >60 mL/min/1.7 3 m2 05/27/2019 4:35 AM [facility] Blood BLOOD SPECIMEN / Unknown Lab Venipuncture / Unknown 05/27/2019 3:56 AM CDT 05/27/2019 4:02 AM CDT Ruby Heath MD LAB - CHEMISTRY O RDERABLES [address] [phone] * PTT [facility] (05/25/2019 9:10 PM CDT) APTT 25.7 23.0 - 38.4 Seconds 05/25/2019 9:32 PM CDT [facility] Comment:Suggested therapeuti c range for full dose I.V. unfractionated heparin therapy for venous thromboembolism is 71 to 109 seconds. Blood BLOOD SPECIMEN / Unknown Venipuncture / Unknown 05/25/2019 9:10 PM CDT 05/25/2019 9:15 PM CDT Sangeetha Berman MD LAB - COAGULATION OR DERABLES Performing Organization Address [facility] Co de Phone Number [address] [phone] * PT-INR [facility] (05/25/2019 9:10 PM CDT) Pathologist [facility] PT 13.3 12.1 - 14.8 Seconds 05/25/2019 9:31 PM CDT [facility] INR 1.0 See Comment 05/25/2019 9:31 PM CDT [facility] Comment:The suggested therap eutic range for standard coumadin (warfarin) therapy is an INR of 2.0-3.0. For high-risk patients (Mechanical Mitral Valve Prosthesis, etc.), the suggested prophylactic therapeutic range is an INR of 2.5-3.5. Blood BLOOD SPECIMEN / Unknown Venipuncture / Unknown 05/25/2019 9:10 PM CDT 05/25/2019 9:15 PM CDT Sangeetha Berman MD LAB - COAGULATION OR DERABLES Performing Organization Address [facility]/ZIP Co de Phone Number [address] [phone] * (ABNORMAL) CBC W AUTO DIFFERENTIAL (05/25/2019 9:10 PM CDT) WBC 12.0(H) 3.5 - 10.5 10? 3 /uL 05/25/2019 9:25 PM [facility] Comment:All CBC parameters h ave been checked. RBC 4.78 4.30 - 5.70 10? 6 /uL 05/25/2019 9:25 PM [facility] Hemoglobin 13.1(L) 13.5 - 17.5 g/dL 05/25/2019 9:25 PM [facility] Hematocrit 39.2 39.0 - 50.0 % 05/25/2019 9:25 PM [facility] MCV 82.0 81.0 - 97.0 fL 05/25/2019 9:25 PM [facility] MCH 27.4(L) 28.0 - 34.0 pg 05/25/2019 9:25 PM [facility] MCHC 33.4 32.0 - 36.0 g/dL 05/25/2019 9:25 PM [facility] Platelet Count 211 150 - 400 10? 3 /uL 05/25/2019 9:25 PM [facility] RDW-SD 38.9 36.0 - 50.0 fL 05/25/2019 9:25 PM [facility] RDW-CV 12.9 11.2 - 14.8 % 05/25/2019 9:25 PM [facility] MPV 10.9 9.3 - 12.8 fL 05/25/2019 9:25 PM [facility] nRBC Absolute 0.00 0 10? 3 /uL 05/25/2019 9:25 PM [facility] nRBC Auto 0.0 0 /100 WBC 05/25/2019 9:25 PM [facility] Neutrophils % 88.5(H) 35.0 - 70.0 % 05/25/2019 9:25 PM [facility] Lymphocytes % 6.9(L) 19.7 - 55.1 % 05/25/2019 9:25 PM [facility] Monocytes % 3.9 3.0 - 15.0 % 05/25/2019 9:25 PM [facility] Eosinophils % 0.0 0.0 - 6.0 % 05/25/2019 9:25 PM [facility] Basophil % 0.2 0.0 - 1.5 % 05/25/2019 9:25 PM CDT [facility] Neutrophils Absolute 10.6(H) 1.6 - 7.0 10? 3 /uL 05/25/2019 9:25 PM CDT [facility] Lymphocyte Absolute 0.8 0.8 - 2.9 10? 3 /uL 05/25/2019 9:25 PM CDT [facility] Monocytes Absolute 0.47 0.14 - 0.66 10? 3 /uL 05/25/2019 9:25 PM CDT [facility] Eosinophils Absolute 0.00 0.00 - 0.45 10? 3 /uL 05/25/2019 9:25 PM CDT [facility] Basophils Absolute 0.02 0.00 - 0.06 10? 3 /uL 05/25/2019 9:25 PM CDT [facility] Immature Granulocytes % 0.5 0.0 - 1.0 % 05/25/2019 9:25 PM CDT [facility] Blood BLOOD SPECIMEN / Unknown Venipuncture / Unknown 05/25/2019 9:10 PM CDT 05/25/2019 9:15 PM CDT Sangeetha Berman MD LAB - HEMATOLOGY ORD SMITH [address] [phone] * PHOSPHORUS BLOOD (05/25/2019 9:10 PM CDT) Phosphorus 4.0 2.3 - 4.7 mg/dL 05/25/2019 9:32 PM CDT [facility] Blood BLOOD SPECIMEN / Unknown Venipuncture / Unknown 05/25/2019 9:10 PM CDT 05/25/2019 9:15 PM CDT Joseph Sarabia DO LAB - CHEMISTRY ALEXIS DEVRIES [address] [phone] * MAGNESIUM BLOOD (05/25/2019 9:10 PM CDT) Magnesium 1.9 1.6 - 2.6 mg/dL 05/25/2019 9:32 PM [facility] Blood BLOOD SPECIMEN / Unknown Venipuncture / Unknown 05/25/2019 9:10 PM CDT 05/25/2019 9:15 PM CDT Joseph Sarabia DO LAB - CHEMISTRY ALEXIS DEVRIES [facility] [address] [phone] * (ABNORMAL) BASIC METABOLIC PANEL (CALCIUM TOTAL) (05/25/2019 9:10 PM CDT) BUN 14 7 - 26 mg/dL 05/25/2019 9:32 PM [facility] Creatinine 0.8 0.6 - 1.2 mg/dL 05/25/2019 9:32 PM [facility] Sodium 139 136 - 145 mmol/L 05/25/2019 9:32 PM [facility] Potassium 4.1 3.5 - 4.5 mmol/L 05/25/2019 9:32 PM [facility] Chloride 105 98 - 107 mmol/L 05/25/2019 9:32 PM [facility] CO2 25 22 - 29 mmol/L 05/25/2019 9:32 PM [facility] Glucose 151(H) 70 - 115 mg/dL 05/25/2019 9:32 PM [facility] Calcium 8.8 8.4 - 10.2 mg/dL 05/25/2019 9:32 PM [facility] Anion Gap 13 8 - 18 05/25/2019 9:32 PM [facility] BUN/Creatinine Ratio 18 7 - 23 05/25/2019 9:32 PM [facility] Osmolality Calculated 291 270 - 300 mOsm/kg 05/25/2019 9:32 PM [facility] eGFR >60 >60 mL/min/1.7 3 m2 05/25/2019 9:32 PM [facility] Blood BLOOD SPECIMEN / Unknown Venipuncture / Unknown 05/25/2019 9:10 PM CDT 05/25/2019 9:15 PM CDT Joseph Sarabia DO LAB - CHEMISTRY ALEXIS DEVRIES [address] [phone] * DRUG SCREEN EXPANDED TOXICOLOGY URINE PANEL (05/25/2019 6:38 PM CDT) Drug Screen Expanded See scanned report 05/25/2019 10:10 PM CDT [facility] Urine URINE / Unknown Collection / Unknown 05/25/2019 6:38 PM CDT 05/25/2019 9:58 PM CDT Sangeetha Berman MD LAB - URINE CHEMISTR Y ORDERABLES Performing Organization Address [facility] Co de Phone Number [address] [phone] * (ABNORMAL) URINALYSIS REFLEX TO MICROSCOPIC NO CULTURE (05/25/2019 6:38 PM CDT) Color UA Yellow Straw, Yellow, Colorless 05/25/2019 6:59 PM CDT [facility] Clarity UA Clear Clear, Slt Cloudy 05/25/2019 6:59 PM CDT [facility] Specific [place] UA 1.045(H) 1.005 - 1.030 05/25/2019 6:59 PM CDT [facility] pH UA 7.0 5.0 - 8.0 pH 05/25/2019 6:59 PM CDT [facility] Protein UA Negative Negative mg/dL 05/25/2019 6:59 PM CDT [facility] Glucose UA Negative Negative mg/dL 05/25/2019 6:59 PM CDT [facility] Ketone UA Negative Negative mg/dL 05/25/2019 6:59 PM CDT [facility] Bilirubin UA Negative Negative mg/dL 05/25/2019 6:59 PM CDT [facility] Blood UA Negative Negative 05/25/2019 6:59 PM CDT [facility] Nitrite UA Negative Negative 05/25/2019 6:59 PM CDT [facility] Leukocyte Esterase Negative Negative 05/25/2019 6:59 PM CDT [facility] Urobilinogen UA Negative Negative mg/dL 05/25/2019 6:59 PM T [facility] RBC UA 3-5 None Seen, 0-2, 3-5 /HPF 05/25/2019 6:59 PM [facility] WBC UA 0-5 None Seen, 0-5 /HPF 05/25/2019 6:59 PM T [facility] Squamous Epithelial Cells UA None Seen None Seen, 0-2 /HPF 05/25/2019 6:59 PM [facility] Mucus UA 1+ None, 1+ /LPF 05/25/2019 6:59 PM [facility] Urine URINE SPECIMEN OBTAINED BY SINGLE CATHETERIZATION OF URINARY BLADDER / Unknown Collection / Unknown 05/25/2019 6:38 PM CDT 05/25/2019 6:44 PM CDT [facility] - 05/25/2019 6:59 PM CDT Joseph Sarabia DO LAB - URINALYSIS ORD ERABLES [address] [phone] * (ABNORMAL) BLOOD GASES ARTERIAL (05/25/2019 6:26 PM CDT) pH Arterial 7.39 7.35 - 7.45 05/25/2019 6:47 PM [facility] pCO2 Arterial 40 35 - 45 mmHg 05/25/2019 6:47 PM [facility] pO2 Arterial 128(H) 77 - 101 mmHg 05/25/2019 6:47 PM [facility] HCO3 Arterial 24.1 22.0 - 26.0 mmol/L 05/25/2019 6:47 PM [facility] TCO2 Arterial 25.3 25.0 - 29.0 mmol/L 05/25/2019 6:47 PM [facility] Base Excess Arterial -0.7 -2.0 - 2.0 mmol/L 05/25/2019 6:47 PM [facility] Hemoglobin Arterial 13.1(L) 13.5 - 17.5 g/dL 05/25/2019 6:47 PM CDT [facility] Oxyhemoglobin Arterial 96.9 95.0 - 100.0 % 05/25/2019 6:47 PM CDT [facility] Carboxyhemoglobin 0.7 0.0 - 3.0 % 05/25/2019 6:47 PM CDT [facility] Methemoglobin 0.4 0.0 - 2.0 % 05/25/2019 6:47 PM CDT [facility] FI O2 Arterial 36.0 % 05/25/2019 6:47 PM CDT [facility] Blood, arterial ARTERIAL BLOOD SPECIMEN / Unknown Arterial Puncture / Unknown 05/25/2019 6:26 PM CDT 05/25/2019 6:44 PM CDT Sangeetha Berman MD LAB - BLOOD GASES OR DERABLES [address] [phone] * XR CHEST 1VW PORTABLE (05/25/2019 5:25 PM CDT) Anatomical Region Laterality Modality Chest Radiographic Radha ging 05/25/2019 5:34 PM CDT Impressions 05/26/2019 11:27 AM CDT IMPRESSION: 1.Minimal right basilar atelectatic changes. Report drafted by Coy Caro M.D. (resident) I, Dr. [place] STONE M.D. have personally reviewed and interpreted this examination/study. This report was electronically signed by [place] STONE M.D. ??on 05/26/2019 11:27 AM . Narrative 05/26/2019 11:27 AM CDT EXAMINATION: XR CHEST 1VW PORTABLE HISTORY: R09.02: Hypoxemia COMPARISON: chest radiograph on 05/25/2019 FINDINGS: Cervical spinal fusion hardware is partially visible. There are minimal right basilar atelectatic changes. No focal consolidation, pleural effusion, or pneumothorax is seen. The cardiomediastinal silhouette is normal in size. The aortic arch has atherosclerotic calcification. No acute fractures are seen. Procedure Note Ny Stone MD - 05/26/2019 EXAMINATION: XR CHEST 1VW PORTABLE HISTORY: R09.02: Hypoxemia COMPARISON: chest radiograph on 05/25/2019 FINDINGS: Cervical spinal fusion hardware is partially visible. There are minimal right basilar atelectatic changes. No focal consolidation, pleural effusion, or pneumothorax is seen. The cardiomediastinal silhouette is normal in size. The aortic arch has atherosclerotic calcification. No acute fractures are seen. IMPRESSION: 1.Minimal right basilar atelectatic changes. Report drafted by Coy Caro M.D. (resident) IDr. [place] M.D. have personally reviewed and interpreted this examination/study. This report was electronically signed by [place] STONE M.D. on 05/26/2019 11:27 AM . Xander Becker MD DIAGNOSTIC IMAGING O RDERABLES * XR CERVICAL SPINE 2 OR 3VW (05/25/2019 3:45 PM CDT) Anatomical Region Laterality Modality Spine Radiographic Radha ging 05/25/2019 4:39 PM CDT Impressions 05/25/2019 4:55 PM CDT IMPRESSION: Slight anterolisthesis of C2 on C3 and C3 on C4. Fracture of the posterior arch of C4 evident on CT is not well seen. Prevertebral soft tissue swelling. This report was electronically signed by [place] STONE M.D. ??on 05/25/2019 4:55 PM . Narrative 05/25/2019 4:55 PM CDT Exam: XR CERVICAL SPINE 2 OR 3VW Date: 05/25/2019 3:46 PM History: S12.301A: Closed nondisplaced fracture of fourth cervical vertebra, unspecified fracture morphology, initial encounter FINDINGS: A neck brace is in place. There has been anterior spinal fusion of C4-C7 with a plate and screw device. C7 is not visible on the lateral views. Hardware is intact. There is slight anterolisthesis of C2 on C3 and C3 on C4. No vertebral body fracture or compression deformity is evident (concurrent CT demonstrated an acute fracture of the posterior arch of C4 which is seen only with CT correlation). Anterior widening of the C3-C4 disc space on CT is not evident on the current exam. Degenerative changes of the facets of the lower cervical spine are seen. There is prevertebral soft tissue swelling at the level of C1-C3. Procedure Note Ny Stone MD - 05/25/2019 Exam: XR CERVICAL SPINE 2 OR 3VW Date: 05/25/2019 3:46 PM History: S12.301A: Closed nondisplaced fracture of fourth cervical vertebra, unspecified fracture morphology, initial encounter FINDINGS: A neck brace is in place. There has been anterior spinal fusion of C4-C7 with a plate and screw device. C7 is not visible on the lateral views. Hardware is intact.There is slight anterolisthesis of C2 on C3 and C3 on C4. No vertebral body fracture or compression deformity is evident (concurrent CT demonstrated an acute fracture of the posterior arch of C4 which is seen only with CT correlation). Anterior widening of the C3-C4 disc space on CT is not evident on the current exam. Degenerative changes of the facets of the lower cervical spine are seen. There is prevertebral soft tissueswelling at the level of C1-C3. IMPRESSION: Slight anterolisthesis of C2 on C3 and C3 on C4. Fracture of the posterior arch of C4 evident on CT is not well seen. Prevertebral soft tissue swelling. This report was electronically signed by [place] STONE M.D. on 05/25/2019 4:55 PM . Xander Becker MD DIAGNOSTIC IMAGING O RDERABLES * RETYPE PATIENT (05/25/2019 1:50 PM CDT) ABO 05/25/2019 3:30 PM CDT [facility] Rh Type 05/25/2019 3:30 PM CDT [facility] Typem 05/25/2019 3:30 PM CDT [facility] Interpretation 05/25/2019 3:30 PM CDT [facility] Blood BLOOD SPECIMEN / Unknown Lab Venipuncture / Unknown 05/25/2019 1:50 PM CDT 05/25/2019 2:05 PM CDT Narrative [facility] - 05/25/2019 3:30 PM CDT Re-type confirmed per [facility] Blood Bank policies & procedures. Results documented in department. Jovany Almendarez MD LAB - BLOOD BANK ORD ERABLES [facility] [address] [place] [address], [facility] * MRI CERVICAL SPINE WO [...] thickening. This report was electronically signed by NORA BRADSHAW ??on 05/25/2019 1:56 PM . Narrative [...] seen from C4 to C7. Procedure Note Nora Bradshaw MD - 05/25/2019 EXAMINATION: Magnetic resonance [...] thickening. This report was electronically signed by NORA BRADSHAW on 05/25/2019 1:56 PM. Kamron Corrigan MD MR ORDERABLE S * CT ANGIO BRAIN AND NECK (05/25/2019 10:54 AM CDT) Anatomical Region Laterality Modality Head Computed Tomogra phy 05/25/2019 11:0 8 AM CDT Impressions 05/25/2019 12:19 PM CDT IMPRESSION: No CT evidence of traumatic vascular injury of the major cervical vessels. I, Dr. NORA BRADSHAW have personally reviewed and interpreted this examination/study. This report was electronically signed by NORA BRADSHAW ??on 05/25/2019 12:19 PM . Narrative [...] No significant abnormality is noted. Procedure Note Nora Bradshaw MD - 05/25/2019 EXAMINATION: CT angiography [...] traumatic vascular injury of the major cervicalvessels. Dr. NORA Barnes have personally reviewed and interpreted this examination/study. This report was electronically signed by NORA BRADSHAW on 05/25/2019 12:19PM . Joseph Sarabia [...] of maxilla. Dictated by Justina Hu DO (finance vice president). Dr. NORA Barnes have personally reviewed and interpreted this examination/study. This report was electronically signed by NORA BRADSHAW ??on 05/25/2019 11:55 AM . Narrative 05/25/2019 11:55 AM CDT EXAMINATION: Computed tomography (CT) of the head without intravenous contrast CT scan of the facial bones without intravenous contrast HISTORY: T190XA: Trauma TECHNIQUE: CT of the head and [...] and tympanic cavities are aerated. Procedure Note Nora Bradshaw MD - 05/25/2019 EXAMINATION: Computed tomography (CT) of the head without intravenous contrast CT scan of the facial bones without intravenous contrast HISTORY: T1.90XA: Trauma TECHNIQUE: CT of the head and [...] of maxilla. Dictated by Justina Hu DO (finance vice president). I, Dr. NORA BRADSHAW have personally reviewed and interpreted this examination/study. This report was electronically signed by NORA BRADSHAW on 05/25/2019 11:55AM . Joseph Sarabia DO CT ORDERABLES * CT FACIAL BONES [...] of maxilla. Dictated by Justina Hu DO (finance vice president). I, Dr. NORA BRADSHAW have personally reviewed and interpreted this examination/study. This report was electronically signed by NORA BRADSHAW ??on 05/25/2019 11:55 AM . Narrative [...] and tympanic cavities are aerated. Procedure Note Nora Bradshaw MD - 05/25/2019 EXAMINATION: Computed tomography [...] of maxilla. Dictated by Justina Hu DO (finance vice president). Dr. NORA Barnes have personally reviewed and interpreted this examination/study. This report was electronically signed by NORA BRADSHAW on 05/25/2019 11:55AM . Joseph Sarabia [...] or lumbar spine. Dictated by Justina Hu (finance vice president). Dr. NORA Barnes have personally reviewed and interpreted this examination/study. This report was electronically signed by NORA BRADSHAW ??on 05/25/2019 12:26 PM . Narrative [...] of bilateral L5-S1 neural foramina. Procedure Note Nora Bradshaw MD - 05/25/2019 EXAMINATION: CT of [...] or lumbar spine. Dictated by Justina Hu (finance vice president). I, Dr. NORA BRADSHAW have personally reviewed and interpreted this examination/study. This report was electronically signed by NORA BRADSHAW on 05/25/2019 12:26PM . Joseph Sarabia [...] thoracic or lumbar spine. Dictated by Justina uH (finance vice president). I, Dr. NORA BRADSHAW have personally reviewed and interpreted this examination/study. This report was electronically signed by NORA BRADSHAW ??on 05/25/2019 12:26 PM . Narrative [...] of bilateral L5-S1 neural foramina. Procedure Note Nora Bradshaw MD - 05/25/2019 EXAMINATION: CT of [...] or lumbar spine. Dictated by Justina Hu (finance vice president). Dr. NORA Barnes have personally reviewed and interpreted this examination/study. This report was electronically signed by NORA BRADSHAW on 05/25/2019 12:26PM . Joseph Sarabia [...] or lumbar spine. Dictated by Justina Hu (finance vice president). Dr. NORA Barnes have personally reviewed and interpreted this examination/study. This report was electronically signed by NORA BRADSHAW ??on 05/25/2019 12:26 PM . Narrative [...] of bilateral L5-S1 neural foramina. Procedure Note Nora Bradshaw MD - 05/25/2019 EXAMINATION: CT of [...] or lumbar spine. Dictated by Justina Hu (finance vice president). IDr. NORA have personally reviewed and interpreted this examination/study. This report was electronically signed by NORA BRADSHAW on 05/25/2019 12:26PM . Josepharpit Costaon DO CT ORDERABLES * CT CHEST ABDOMEN PELVIS W CONT (05/25/2019 10:54 AM CDT) Anatomical Region Laterality Modality Chest, Abdomen, Pelvis Computed Tomography 05/25/2019 10:4 3 AM CDT Impressions 05/25/2019 11:15 AM CDT IMPRESSION: 1. No acute visceral, vascular, or osseus injury identified in the chest, abdomen, or pelvis. Dictated by Tong Shields MD (finance vice president). Dr. ESPERANZA Barnes M.D. have personally reviewed and interpreted [...] or pelvis. Dictated by Tong Shields MD (finance vice president). I, Dr. ESPERANZA CALZADA M.D. have personally reviewed and interpretedthis examination/study. This report was electronically signed by ESPERANZA CALZADA M.D. on05/25/2019 11:15 AM . Joseph Sarabia DO CT ORDERABLES * PREPARE (CROSSMATCH) RBC UNIT(S), 1 Units (05/25/2019 10:45 AM CDT) Unit Description N/A [facility] Blood Bank BLOOD SPECIMEN / Unknown 05/25/2019 10:45 AM CDT 05/25/2019 10:45 AM CDT Kamron Corrigan MD LAB - BLOOD BANK ORDERABLES [facility] [address] * PREPARE (CROSSMATCH) RBC UNIT(S), 2 Units (05/25/2019 10:45 AM CDT) Unit Description N/A [facility] Blood Bank BLOOD SPECIMEN / Unknown 05/25/2019 10:45 AM CDT 05/25/2019 10:45 AM CDT Ricardo Burden MD LAB - BLOOD BANK O RDERABLES [facility] [address] * PREPARE (CROSSMATCH) RBC UNIT(S), 4 Units (05/25/2019 10:45 AM CDT) Unit Description LR Red Cells [facility] Unit ABO A [facility] Unit Rh NEG [facility] Product Number RL1 [facility] Unit Donor # [id number] [facility] Unit Status released [facility] Product [facility] [id number] [facility] Blood Type Barcode 0600 [facility] Unit Description LR Red Cells [facility] Unit ABO A [facility] Unit Rh NEG [facility] Product Number RL1 [facility] Unit Donor [facility] [id number] 3 [facility] Unit Status released [facility] SYSTEM BLOO D BANK LAB Product Code [id number] [facility] BLO OD BANK LAB Blood Type Barcode 0600 [facility] BLOOD BANK LAB Unit Description LR Red Cells [facility] BLOOD BANK LAB Unit ABO A [facility] BLO[facility] Unit Rh NEG [facility] BLOOD B[facility] Product Number RL1 [facility] B LOOD BANK [facility] Unit Donor # [id number] 4 [facility] BLOOD BANK LAB Unit Status released [facility] BLOO D BANK LAB Product Code [id number] [facility] BLO OD BANK LAB Blood Type Barcode 0600 [facility] BLOOD BANK LAB Unit Description LR Red Cells [facility] BLOOD [facility]ANK LAB Unit ABO A [facility] BLOOD BANK LAB Unit Rh NEG [facility] BLOOD BANK [facility] Product Number RL1 [facility] B LOOD BANK LAB Unit Donor # [id number] 2 [facility] BLOOD BANK LAB Unit Status released [facility] BLOO D BANK LAB Product Code [id number] [facility] BLO OD BANK LAB Blood Type Barcode 0600 [facility] BLOOD BANK LAB Blood Bank BLOOD SPECIMEN / Unknown 05/25/2019 10:45 AM CDT 05/25/2019 10:45 AM CDT [facility] ORD ERABLES Performing Organization Address [facility]/ZIP Co de Phone Number [facility] BLOOD BANK LAB [address] [place] [address] * ALCOHOL ETHYL BLOOD (05/25/2019 10:31 AM CDT) Pathologist [facility] Interpretation Ethanol None Detected None Detected mg/dL 05/25/2019 10:59 AM CDT [facility] LABORATORY [facility] Comment:Ethanol levels less than 10 mg/dL are resulted as None detected . Blood BLOOD SPECIMEN / Unknown Venipuncture / Unknown 05/25/2019 10:31 AM CDT 05/25/2019 10:37 AM CDT [facility] LAB - CHEMISTRY ALEXIS DEVRIES Performing Organization Address [facility] Co de Phone Number [address] [phone] * TYPE + SCREEN PANEL (05/25/2019 10:31 AM CDT) Pathologist [facility] Antibody Screen NEG 0 11:53 AM CDT [facility] BLOOD BANK LAB ABO Rh A NEG 05/25/2019 11:53 AM CDT [facility] BLOOD BANK LAB Blood Bank BLOOD SPECIMEN / Unknown Venipuncture / Unknown 05/25/2019 10:31 AM CDT 05/25/2019 10:43 AM CDT [facility] ORD ERABLES Performing Organization Address [facility] Co de Phone Number [facility] BLOOD BANK LAB [address] [place] [address] * LIPASE BLOOD (05/25/2019 10:31 AM CDT) Pathologist [facility] Lipase 75 8 - 78 Units/L 05/25/2019 10:59 AM CDT [facility] Blood BLOOD SPECIMEN / Unknown Venipuncture / Unknown 05/25/2019 10:31 AM CDT 05/25/2019 10:37 AM CDT Joseph Sarabia LAB - CHEMISTRY ALEXIS DEVRIES Performing Organization Address City/[facility]/ZIP Co de Phone Number [address] [phone] * LACTIC ACID BLOOD (05/25/2019 10:31 AM CDT) [facility] Lactic Acid-Stat 1.4 0.5 - 2.0 mmol/L 05/25/2019 10:52 AM T [facility] Blood BLOOD SPECIMEN / Unknown Venipuncture / Unknown 05/25/2019 10:31 AM CDT 05/25/2019 10:37 AM CDT Joseph Sarabia LAB - CHEMISTRY ORDBlanca DEVRIES Performing Organization Address City/[facility]/ZIP Co de Phone Number [address] [phone] * (ABNORMAL) CBC W AUTO DIFFERENTIAL (05/25/2019 10:31 AM CDT) [facility] WBC 8.4 3.5 - 10.5 10? 3 /uL 05/25/2019 10:39 [address] [facility] RBC 5.23 4.30 - 5.70 10? 6 /uL 05/25/2019 10:39 AM [facility] Hemoglobin 14.1 13.5 - 17.5 g/dL 05/25/2019 10:39 AM [facility] Hematocrit 43.1 39.0 - 50.0 % 05/25/2019 10:39 AM [facility] MCV 82.4 81.0 - 97.0 fL 05/25/2019 10:39 AM [facility] MCH 27.0(L) 28.0 - 34.0 pg 05/25/2019 10:39 AM [facility] MCHC 32.7 32.0 - 36.0 g/dL 05/25/2019 10:39 AM [facility] Platelet Count 225 150 - 400 10? 3 /uL 05/25/2019 10:39 AM [facility] RDW-SD 39.0 36.0 - 50.0 fL 05/25/2019 10:39 AM [facility] RDW-CV 13.0 11.2 - 14.8 % 05/25/2019 10:39 AM [facility] MPV 11.0 9.3 - 12.8 fL 05/25/2019 10:39 AM [facility] nRBC Absolute 0.00 0 10? 3 /uL 05/25/2019 10:39 AM [facility] nRBC Auto 0.0 0 /100 WBC 05/25/2019 10:39 AM [facility] Neutrophils % 68.6 35.0 - 70.0 % 05/25/2019 10:39 AM [facility] Lymphocytes % 21.1 19.7 - 55.1 % 05/25/2019 10:39 AM [facility] Monocytes % 5.4 3.0 - 15.0 % 05/25/2019 10:39 AM [facility] Eosinophils % 2.4 0.0 - 6.0 % 05/25/2019 10:39 AM [facility] Basophil % 0.8 0.0 - 1.5 % 05/25/2019 10:39 AM [facility] Neutrophils Absolute 5.7 1.6 - 7.0 10? 3 /uL 05/25/2019 10:39 AM [facility] Lymphocyte Absolute 1.8 0.8 - 2.9 10? 3 /uL 05/25/2019 10:39 AM [facility] Monocytes Absolute 0.45 0.14 - 0.66 10? 3 /uL 05/25/2019 10:39 AM [facility] Eosinophils Absolute 0.20 0.00 - 0.45 10? 3 /uL 05/25/2019 10:39 AM [facility] Basophils Absolute 0.07(H) 0.00 - 0.06 10? 3 /uL 05/25/2019 10:39 AM [facility] Immature Granulocytes % 1.7(H) 0.0 - 1.0 % 05/25/2019 10:39 AM [facility] Blood BLOOD SPECIMEN / Unknown Venipuncture / Unknown 05/25/2019 10:31 AM CDT 05/25/2019 10:37 AM CDT Joseph Sarabia DO LAB - HEMATOLOGY ORD ERABLES Performing Organization Address City/State/[facility] Co de Phone Number [facility] [address] [phone] * (ABNORMAL) COMPREHENSIVE METABOLIC PANEL (05/25/2019 10:31 AM CDT) BUN 12 7 - 26 mg/dL 05/25/2019 10:59 AM [facility] Creatinine 0.9 0.6 - 1.2 mg/dL 05/25/2019 10:59 AM [facility] Sodium 140 136 - 145 mmol/L 05/25/2019 10:59 AM [facility] Potassium 4.2 3.5 - 4.5 mmol/L 05/25/2019 10:59 AM [facility] Chloride 106 98 - 107 mmol/L 05/25/2019 10:59 AM [facility] CO2 24 22 - 29 mmol/L 05/25/2019 10:59 AM [facility] Glucose 128(H) 70 - 115 mg/dL 05/25/2019 10:59 AM [facility] Calcium 8.9 8.4 - 10.2 mg/dL 05/25/2019 10:59 AM [facility] Protein Total 6.8 6.0 - 8.3 g/dL 05/25/2019 10:59 AM [facility] Albumin 3.7 3.4 - 5.0 g/dL 05/25/2019 10:59 AM [facility] Bilirubin Total 0.5 0.2 - 1.2 mg/dL 05/25/2019 10:59 AM [facility] Alkaline Phosphatase 93 40 - 150 Units/L 05/25/2019 10:59 AM [facility] ALT 22 0 - 55 Units/L 05/25/2019 10:59 AM CDT [facility] AST 23 5 - 34 Units/L 05/25/2019 10:59 AM CDT [facility] Anion Gap 14 8 - 18 05/25/2019 10:59 AM CDT [facility] BUN/Creatinine Ratio 13 7 - 23 05/25/2019 10:59 AM CDT [facility] Osmolality Calculated 291 270 - 300 mOsm/kg 05/25/2019 10:59 AM CDT [facility] Albumin/Globulin Ratio 1.2 1.1 - 2.3 05/25/2019 10:59 AM CDT [facility] eGFR >60 >60 mL/min/1.7 3 m2 05/25/2019 10:59 AM CDT [facility] Blood BLOOD SPECIMEN / Unknown Venipuncture / Unknown 05/25/2019 10:31 AM CDT 05/25/2019 10:37 AM CDT Joseph Sarabia DO LAB - CHEMISTRY ALEXIS DEVRIES Performing Organization Address City/State/[facility] Co de Phone Number [address] [phone] * XR PELVIS 1 OR 2VW (05/25/2019 10:22 AM CDT) Anatomical Region Laterality Modality Pelvis Radiographic Radha ging 05/25/2019 10:2 4 AM CDT Impressions 05/25/2019 11:03 AM CDT IMPRESSION: No acute fracture identified. Report dictated by Beltran Mcdermott MD (finance vice president) IDr. AL MD have personally reviewed and [...] sacroiliac joints are normal. Procedure Note Al Lawton MD - 05/25/2019 EXAMINATION: XR PELVIS 1 OR 2VW HISTORY: T14.90XA: Trauma COMPARISON: No prior study is available for comparison. FINDINGS: No acute fracture is identified. The femoral heads appear well-seated within their respective acetabula. The pubic symphysis is intact. Bone density and texture are normal. The sacroiliac joints are normal. IMPRESSION: No acute fracture identified. Report dictated by Beltran Mcdermott MD (finance vice president) Dr. AL Barnes MD have personally reviewed and interpreted this examination/study. This report was electronically signed by AL LAWTON MD on05/25/2019 11:03 AM . Joseph Sarabia DO DIAGNOSTIC IMAGING O RDERABLES * XR CHEST 1VW (05/25/2019 10:22 AM CDT) Anatomical Region Laterality Modality Chest Radiographic Radha ging 05/25/2019 10:2 5 AM CDT Impressions 05/25/2019 11:03 AM CDT IMPRESSION: No acute pulmonary process. Beltarn Mcdermott MD (finance vice president) I, Dr. AL LAWTON MD have personally reviewed and interpreted this examination/study. This report was electronically signed by AL LAWTON MD ??on 05/25/2019 11:03 AM . Narrative 05/25/2019 11:03 AM CDT EXAMINATION: XR CHEST 1VW HISTORY: T14.90XA: Trauma FINDINGS: No prior study is available for comparison at the time of this dictation. Lower cervical spine fusion hardware is partially imaged. There is no focal consolidation, pleural effusion, or pneumothorax. The cardiomediastinal silhouette is normal. Procedure Note Al Lawton MD - 05/25/2019 EXAMINATION: XR CHEST 1VW HISTORY: T14.90XA: Trauma FINDINGS: No prior study is available for comparison at the time of this dictation. Lower cervical spine fusion hardware is partially imaged. There is no focal consolidation, pleural effusion, or pneumothorax. The cardiomediastinal silhouette is normal. IMPRESSION: No acute pulmonary process. Beltran Mcdermott MD (finance vice president) I, Dr. AL LAWTON MD have personally reviewed and interpreted this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
--- OUTSIDE RECORDS SUMMARY | 2024-02-27 10:41 | XMS_ITS | Encounter Summary ---
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 Laryngoscopy View: Grade 1 (full cords); Intubation Adjuncts: Stylet, Video Laryngoscope; Tube: Endotracheal Tube; Placement: Oral; Tube Type: Cuffed- inflated; Tube Size(mm): 8 MM; Depth of Insertion: 24 CM; Measured From: lips; Attempts: 1; Cuff Infated: Air; Cuff Vol(mL): 5 mL; Verified By: Direct visualization, Bilateral breath sounds, Chest Auscultation, CO2 Monitor 05/27/19 11:47 AM by Lisa Navarro APRN-CRNA 05/27/19 06:26 PM by Elton Mejias DO Arterial Line Date: 05/27/19; Time: 1204; Placed By: TISH Jean CRNA; Gauge: 20; Anesthetic Used: No; Line Secured: Taped; Tolerance: General Anesthesia 05/27/19 12:04 PM by Lisa Navarro APRN-CRNA Not recorded Drain 05/27/19; 1707; Dr. Kim; 1; Round; Accordian; 10 Fr; Posterior; Neck 05/27/19 05:07 PM by Abby Salvador RN Not recorded Intraprocedure I/O Totals Urine Output Urine 4000 mL Anesthesia Other Output Estimated Blood Loss 1000 mL LR (Lactated ringers) Volume infused 2500 ml albumin 5% Volume infused 500 ml Patient Transfer Location: PACU Transport Airway: spontaneous respirations and supplemental O2 Transport Monitoring: heart rate and continuous pulse oximetry Complications: None Handoff Given? Yes Checklist or Protocol - The tillman handoff elements that must be included in the transfer of care checklist include: 1. Identification of patient. 2. Identification of responsible practitioner (PACU nurse or advanced practitioner). 3. Discussion of pertinent medical history. 4. Discussion of the surgical/procedure course (procedure, reason for surgery, procedure performed). 5. Intraoperative anesthetic management and issue/concerns. 6. Expectations/Plans for the early post-procedure period. 7. Opportunity for questions and acknowledgement of understanding of report from the receiving PACUteam. Zaria Morel DO documented in this encounter Plan of Treatment Not on file documented as of this encounter Procedures Procedure Name Priority Date/Time Associated Diagnosis Comments ARTERIAL LINE NOTE Routine 05/27/2019 1: 38 PM CDT ENDOTRACHEAL TUBE NOTE Routine 05/27/2019 12:05 PM CDT documented in this encounter Results * ARTERIAL LINE PERFORMABLE (05/27/2019 1:38 PM CDT) Narrative Lisa Navarro APRN-CRNA - 05/27/2019 1:38 PM CDT Lisa Navarro APRN-CRNA ? 05/27/2019 ??1:39 PM Arterial Line Placement Procedure Note Patient Location: OR. Procedure: Arterial Line (36287). Procedure Section ?? Indications: continuous blood pressure [...] Event Date/Time: ??05/27/2019 11:47 AM Procedure: intubation (08919). Procedure Section: ?? Sedation: under general anesthesia. [...] AM. Staff Section ?? Anesthesia Provider: Lisa Navarro, GOMEZ, Performed the procedure Lisa DYER GENERAL ANES THESIA ORDERABLES documented in this encounter Visit Diagnoses Not on filedocumented in this encounter Administered Medications Inactive Administered Medications - up to 3 most recent administrations Medication Order MAR Action Action Date Dose Rate Site albumin human 5 % infusion CONTINUOUS PRN, Starting on Thu05/27/19 at 1458, Until Thu05/27/19 at 1832, Anesthesia Intra-op $ New Bag/Syringe 05/27/2019 2:58 PM CDT calcium chloride 10 % injection PRN, Starting on Thu05/27/19 at 1626, Until Thu05/27/19 at 1832, Anesthesia Intra-op $ Given 05/27/2019 4:41 PM CDT 0.5 g $ Given 05/27/2019 4:26 PM CDT 0.5 g ceFAZolin (ANCEF) 2,000 mg in 50 ml IVPB PRN, Starting on Thu05/27/19 at 1302, Until Thu05/27/19 at 1832, Anesthesia Intra-op $ Given 05/27/2019 4:59 PM CDT 2 g $ Given 05/27/2019 1:02 PM CDT 2 g Dexamethasone Sod Phosphate PF injection Intravenous, PRN, Starting on Thu05/27/19 at 1317, Until Thu05/27/19 at 1832, Anesthesia Intra-op $ Given 05/27/2019 1:17 PM CDT 4 mg dexmedetomidine (PRECEDEX) 200 mcg in 50 mL infusion CONTINUOUS PRN, Starting on Thu05/27/19 at 1150, Until Thu05/27/19 at 1832, Anesthesia Intra-op Rate Change 05/27/2019 12:58 PM CDT 0.7 mcg/kg/hr 15.09 mL/hr Rate Change 05/27/2019 12:05 PM CDT 0.5 mcg/kg/hr 10.78 mL /hr $ New Bag/Syringe 05/27/2019 11:50 AM CDT 0.3 mcg/kg/hr 6. 47 mL/hr fentaNYL (PF) (SUBLIMAZE) injection Intravenous, PRN, Starting on Thu05/27/19 at 1142, Until Thu05/27/19 at 1832, Anesthesia Intra-op $ Given 05/27/2019 1:27 PM CDT 75 mcg $ Given 05/27/2019 11:42 AM CDT 50 mcg glycopyrrolate (ROBINUL) injection Intravenous, PRN, Starting on Thu05/27/19 at 1215, Until Thu05/27/19 at 1832, Anesthesia Intra-op $ Given 05/27/2019 12:15 PM CDT 0.3 mg $ Given 05/27/2019 12:07 PM CDT 0.3 mg HYDROmorphone HCl-NaCl 2-0.9 MG/10ML-% SOSY Intravenous, PRN, Starting on Thu05/27/19 at 1710, Until Thu05/27/19 at 1832, Anesthesia Intra-op $ Given 05/27/2019 5:38 PM CDT 0.4 mg $ Given 05/27/2019 5:31 PM CDT 0.4 mg $ Given 05/27/2019 5:10 PM CDT 0.2 mg isolyte-S pH 7.4 infusion CONTINUOUS PRN, Starting on Thu05/27/19 at 1150, Until Thu05/27/19 at 1832, Anesthesia Intra-op Rate Change 05/27/2019 4:11 PM CDT 10 0 mL/hr Rate Change 05/27/2019 2:47 PM CDT 200 mL/hr Rate Change 05/27/2019 1:11 PM CDT 100 mL/hr lactated ringers infusion Intravenous, CONTINUOUS PRN, Starting on Thu05/27/19 at 1138, Until Thu05/27/19 at 1832, Anesthesia Intra-op $ New Bag/Syringe 05/27/2019 4:17 PM CDT $ New Bag/Syringe 05/27/2019 12:21 PM CDT $ New Bag/Syringe 05/27/2019 11:38 AM CDT lidocaine hcl (PF) (XYLOCAINE MPF) 2 % injection Infiltration, PRN, Starting on Thu05/27/19 at 1142, Until Thu05/27/19 at 1832, Anesthesia Intra-op $ Given 05/27/2019 11:42 AM CDT 50 mg $ Given 05/27/2019 11:38 AM CDT 50 mg midazolam (VERSED) injection Intravenous, PRN, Starting on Thu05/27/19 at 1138, Until Thu05/27/19 at 1832, Anesthesia Intra-op $ Given 05/27/2019 12:25 PM CDT 1 mg $ Given 05/27/2019 11:38 AM CDT 1 mg Ondansetron HCl (ZOFRAN) injection Intravenous, PRN, Starting on Thu05/27/19 at 1138, Until Thu05/27/19 at 1832, Anesthesia Intra-op $ Given 05/27/2019 11:38 AM CDT 4 mg phenylephrine 100 mcg/mL injection Intravenous, PRN, Starting on Thu05/27/19 at 1214, Until Thu05/27/19 at 1832, Anesthesia Intra-op $ Given 05/27/2019 12:14 PM CDT 150 mcg $ Given 05/27/2019 12:08 PM CDT 150 mcg propofol (DIPRIVAN) infusion CONTINUOUS PRN, Starting on Thu05/27/19 at 1152, Until Thu05/27/19 at 1832, Anesthesia Intra-op Rate Change 05/27/2019 4:04 PM CDT 100 mcg/kg/min 51.72 mL/hr Rate Change 05/27/2019 1:26 PM CDT 120 mcg/kg/min 62.06 mL /hr Rate Change 05/27/2019 1:11 PM CDT 175 mcg/kg/min 90.51 mL /hr propofol (DIPRIVAN) injection Intravenous, PRN, Starting on Thu05/27/19 at 1142, Until Thu05/27/19 at 1832, Anesthesia Intra-op $ Given 05/27/2019 12:50 PM CDT 40 mg $ Given 05/27/2019 12:39 PM CDT 30 mg $ Given 05/27/2019 11:42 AM CDT 130 mg remifentanil (ULTIVA) 2 mg in 0.9% NaCl 50 mL infusion CONTINUOUS PRN, Starting on Thu05/27/19 at 1153, Until Thu05/27/19 at 1832, Anesthesia Intra-op Rate Change 05/27/2019 4:05 PM CDT 0.05 mcg/kg/min 6.47 mL/hr Rate Change 05/27/2019 12:30 PM CDT 0.07 mcg/kg/min 9.05 m L/hr Rate Change 05/27/2019 12:10 PM CDT 0.05 mcg/kg/min 6.47 m L/hr rocuronium (ZEMURON) injection Intravenous, PRN, Starting on Thu05/27/19 at 1142, Until Thu05/27/19 at 1832, Anesthesia Intra-op $ Given 05/27/2019 2:26 PM CDT 20 mg $ Given 05/27/2019 2:10 PM CDT 20 mg $ Given 05/27/2019 1:50 PM CDT 20 mg succinylcholine (ANECTINE) injection Intravenous, PRN, Starting on Thu05/27/19 at 1142, Until Thu05/27/19 at 1832, Anesthesia Intra-op $ Given 05/27/2019 11:42 AM CDT 100 mg sugammadex (BRIDION) injection Intravenous, PRN, Starting on Thu05/27/19 at 1643, Until Thu05/27/19 at 1832, Anesthesia Intra-op $ Given 05/27/2019 4:43 PM CDT 172 mg documented in this encounter Care Teams Pool Player Relationship Specialty Start Date End Date Ilan Pearson MD [address] [place] [id number] PCP - General Family Medicine 05/25/19 documented as of this encounter
--- OUTSIDE RECORDS SUMMARY | 2024-02-27 10:41 | XMS_ITS | Encounter Summary ---
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 electronically signed by AL LAWTON MD on05/31/2019 3:22 PM . Kamron Corrigan MD DIAGNOSTIC I MAGING ORDERABLES * PHOSPHORUS BLOOD (05/30/2019 11:48 PM CDT) Phosphorus 3.5 2.3 - 4.7 mg/dL 05/31/2019 12:23 AM CDT [facility] Blood BLOOD SPECIMEN / Unknown Lab Venipuncture / Unknown 05/30/2019 11:48 PM CDT 05/30/2019 11:57 PM CDT Sangeetha Berman MD LAB - CHEMISTRY ALEXIS DEVRIES [address] [phone] * MAGNESIUM BLOOD (05/30/2019 11:48 PM CDT) Magnesium 2.2 1.6 - 2.6 mg/dL 05/31/2019 12:23 AM CDT [facility] Blood BLOOD SPECIMEN / Unknown Lab Venipuncture / Unknown 05/30/2019 11:48 PM CDT 05/30/2019 11:57 PM CDT Sangeetha Berman MD LAB - CHEMISTRY ALEXIS DEVRIES [address] [phone] * (ABNORMAL) CBC W AUTO DIFFERENTIAL (05/30/2019 11:48 PM [facility]) WBC 10.7(H) 3.5 - 10.5 10? 3 /uL 05/31/2019 12:03 AM [facility] RBC 3.78(L) 4.30 - 5.70 10? 6 /uL 05/31/2019 12:03 AM [facility] Hemoglobin 10.4(L) 13.5 - 17.5 g/dL 05/31/2019 12:03 AM [facility] Hematocrit 31.3(L) 39.0 - 50.0 % 05/31/2019 12:03 AM [facility] MCV 82.8 81.0 - 97.0 fL 05/31/2019 12:03 AM [facility] MCH 27.5(L) 28.0 - 34.0 pg 05/31/2019 12:03 AM [facility] MCHC 33.2 32.0 - 36.0 g/dL 05/31/2019 12:03 AM [facility] Platelet Count 244 150 - 400 10? 3 /uL 05/31/2019 12:03 AM [facility] RDW-SD 39.3 36.0 - 50.0 fL 05/31/2019 12:03 AM [facility] RDW-CV 13.0 11.2 - 14.8 % 05/31/2019 12:03 AM [facility] MPV 10.6 9.3 - 12.8 fL 05/31/2019 12:03 AM [facility] nRBC Absolute 0.00 0 10? 3 /uL 05/31/2019 12:03 AM [facility] nRBC Auto 0.0 0 /100 WBC 05/31/2019 12:03 AM [facility] Neutrophils % 75.4(H) 35.0 - 70.0 % 05/31/2019 12:03 AM [facility] Lymphocytes % 11.5(L) 19.7 - 55.1 % 05/31/2019 12:03 AM [facility] Monocytes % 9.7 3.0 - 15.0 % 05/31/2019 12:03 AM [facility] Eosinophils % 0.8 0.0 - 6.0 % 05/31/2019 12:03 AM [facility] Basophil % 0.4 0.0 - 1.5 % 05/31/2019 12:03 AM [facility] Neutrophils Absolute 8.0(H) 1.6 - 7.0 10? 3 /uL 05/31/2019 12:03 AM [facility] Lymphocyte Absolute 1.2 0.8 - 2.9 10? 3 /uL 05/31/2019 12:03 AM [facility] Monocytes Absolute 1.04(H) 0.14 - 0.66 10? 3 /uL 05/31/2019 12:03 AM [facility] Eosinophils Absolute 0.09 0.00 - 0.45 10? 3 /uL 05/31/2019 12:03 AM [facility] Basophils Absolute 0.04 0.00 - 0.06 10? 3 /uL 05/31/2019 12:03 AM [facility] Immature Granulocytes % 2.2(H) 0.0 - 1.0 % 05/31/2019 12:03 AM [facility] Blood BLOOD SPECIMEN / Unknown Lab Venipuncture / Unknown 05/30/2019 11:48 PM CDT 05/30/2019 11:57 PM CDT Sangeetha Berman MD LAB - HEMATOLOGY ORD ERABLES Performing Organization Address City/State/[facility] Co de Phone Number [facility] [address] [phone] * (ABNORMAL) BASIC METABOLIC PANEL (CALCIUM TOTAL) (05/30/2019 11:48 PM CDT) BUN 18 7 - 26 mg/dL 05/31/2019 12:23 AM [facility] Creatinine 0.8 0.6 - 1.2 mg/dL 05/31/2019 12:23 AM [facility] Sodium 135(L) 136 - 145 mmol/L 05/31/2019 12:23 AM [facility] Potassium 4.4 3.5 - 4.5 mmol/L 05/31/2019 12:23 AM [facility] Chloride 99 98 - 107 mmol/L 05/31/2019 12:23 AM [facility] CO2 25 22 - 29 mmol/L 05/31/2019 12:23 AM [facility] Glucose 95 70 - 115 mg/dL 05/31/2019 12:23 AM [facility] Calcium 8.8 8.4 - 10.2 mg/dL 05/31/2019 12:23 AM [facility] Anion Gap 15 8 - 18 05/31/2019 12:23 AM [facility] BUN/Creatinine Ratio 23 7 - 23 05/31/2019 12:23 AM [facility] Osmolality Calculated 282 270 - 300 mOsm/kg 05/31/2019 12:23 AM [facility] eGFR >60 >60 mL/min/1.7 3 m2 05/31/2019 12:23 AM [facility] Blood BLOOD SPECIMEN / Unknown Lab Venipuncture / Unknown 05/30/2019 11:48 PM CDT 05/30/2019 11:57 PM CDT Sangeetha Berman MD LAB - CHEMISTRY ALEXIS DEVRIES [address] [phone] * PHOSPHORUS BLOOD (05/30/2019 12:33 AM CDT) Phosphorus 2.8 2.3 - 4.7 mg/dL 05/30/2019 1:11 AM [facility] Blood BLOOD SPECIMEN / Unknown Lab Venipuncture / Unknown 05/30/2019 12:33 AM CDT 05/30/2019 12:45 AM CDT Sangeetha Berman MD LAB - CHEMISTRY ALEXIS DEVRIES [address] [phone] * MAGNESIUM BLOOD (05/30/2019 12:33 AM CDT) Magnesium 2.0 1.6 - 2.6 mg/dL 05/30/2019 1:11 AM [facility] Blood BLOOD SPECIMEN / Unknown Lab Venipuncture / Unknown 05/30/2019 12:33 AM CDT 05/30/2019 12:45 AM CDT Sangeetha Berman MD LAB - CHEMISTRY ALEXIS DEVRIES [facility] Organization Address City/State/[facility] Co de Phone Number [facility] [address] [phone] * (ABNORMAL) CBC W AUTO DIFFERENTIAL (05/30/2019 12:33 AM CDT) WBC 10.8(H) 3.5 - 10.5 10? 3 /uL 05/30/2019 12:53 AM [facility] RBC 3.70(L) 4.30 - 5.70 10? 6 /uL 05/30/2019 12:53 AM [facility] Hemoglobin 10.3(L) 13.5 - 17.5 g/dL 05/30/2019 12:53 AM [facility] Hematocrit 30.8(L) 39.0 - 50.0 % 05/30/2019 12:53 AM [facility] MCV 83.2 81.0 - 97.0 fL 05/30/2019 12:53 AM [facility] MCH 27.8(L) 28.0 - 34.0 pg 05/30/2019 12:53 AM [facility] MCHC 33.4 32.0 - 36.0 g/dL 05/30/2019 12:53 AM [facility] Platelet Count 194 150 - 400 10? 3 /uL 05/30/2019 12:53 AM [facility] RDW-SD 39.4 36.0 - 50.0 fL 05/30/2019 12:53 AM [facility] RDW-CV 12.9 11.2 - 14.8 % 05/30/2019 12:53 AM [facility] MPV 11.0 9.3 - 12.8 fL 05/30/2019 12:53 AM [facility] nRBC Absolute 0.00 0 10? 3 /uL 05/30/2019 12:53 AM [facility] nRBC Auto 0.0 0 /100 WBC 05/30/2019 12:53 AM [facility] Neutrophils % 73.0(H) 35.0 - 70.0 % 05/30/2019 12:53 AM [facility] Lymphocytes % 15.2(L) 19.7 - 55.1 % 05/30/2019 12:53 AM [facility] Monocytes % 9.5 3.0 - 15.0 % 05/30/2019 12:53 AM [facility] Eosinophils % 0.3 0.0 - 6.0 % 05/30/2019 12:53 AM [facility] Basophil % 0.4 0.0 - 1.5 % 05/30/2019 12:53 AM [facility] Neutrophils Absolute 7.9(H) 1.6 - 7.0 10? 3 /uL 05/30/2019 12:53 AM [facility] Lymphocyte Absolute 1.7 0.8 - 2.9 10? 3 /uL 05/30/2019 12:53 AM [facility] Monocytes Absolute 1.03(H) 0.14 - 0.66 10? 3 /uL 05/30/2019 12:53 AM [facility] Eosinophils Absolute 0.03 0.00 - 0.45 10? 3 /uL 05/30/2019 12:53 AM [facility] Basophils Absolute 0.04 0.00 - 0.06 10? 3 /uL 05/30/2019 12:53 AM [facility] Immature Granulocytes % 1.6(H) 0.0 - 1.0 % 05/30/2019 12:53 AM [facility] Blood BLOOD SPECIMEN / Unknown Lab Venipuncture / Unknown 05/30/2019 12:33 AM CDT 05/30/2019 12:44 AM T Sangeetha Berman MD LAB - HEMATOLOGY ORD ERABLES [facility] [address] [phone] * BASIC METABOLIC PANEL (CALCIUM TOTAL) (05/30/2019 12:33 AM CDT) BUN 15 7 - 26 mg/dL 05/30/2019 1:11 AM [facility] Creatinine 0.9 0.6 - 1.2 mg/dL 05/30/2019 1:11 AM [facility] Sodium 136 136 - 145 mmol/L 05/30/2019 1:11 AM [facility] Potassium 4.1 3.5 - 4.5 mmol/L 05/30/2019 1:11 AM [facility] Chloride 100 98 - 107 mmol/L 05/30/2019 1:11 AM [facility] CO2 24 22 - 29 mmol/L 05/30/2019 1:11 AM [facility] Glucose 101 70 - 115 mg/dL 05/30/2019 1:11 AM [facility] Calcium 8.5 8.4 - 10.2 mg/dL 05/30/2019 1:11 AM [facility] Anion Gap 16 8 - 18 05/30/2019 1:11 AM [facility] BUN/Creatinine Ratio 17 7 - 23 05/30/2019 1:11 AM [facility] Osmolality Calculated 283 270 - 300 mOsm/kg 05/30/2019 1:11 AM [facility] eGFR >60 >60 mL/min/1.7 3 m2 05/30/2019 1:11 AM [facility] Blood BLOOD SPECIMEN / Unknown Lab Venipuncture / Unknown 05/30/2019 12:33 AM CDT 05/30/2019 12:45 AM T Sangeetha Berman MD LAB - CHEMISTRY ALEXIS DEVRIES [address] [phone] * (ABNORMAL) URINALYSIS REFLEX TO MICROSCOPIC NO CULTURE (05/29/2019 11:29 AM CDT) Color UA Yellow Straw, Yellow, Colorless 05/29/2019 11:55 AM [facility] Clarity UA Clear Clear, Slt Cloudy 05/29/2019 11:55 AM [facility] Specific Mcdermitt UA 1.019 1.005 - 1.030 05/29/2019 11:55 AM [facility] pH UA 6.0 5.0 - 8.0 pH 05/29/2019 11:55 AM [facility] Protein UA Negative Negative mg/dL 05/29/2019 11:55 AM [facility] Glucose UA Negative Negative mg/dL 05/29/2019 11:55 AM [facility] Ketone UA Trace(A) Negative mg/dL 05/29/2019 11:55 AM [facility] Bilirubin UA Negative Negative mg/dL 05/29/2019 11:55 AM [facility] Blood UA 2+(A) Negative 05/29/2019 11:55 AM [facility] Nitrite UA Negative Negative 05/29/2019 11:55 AM [facility] Leukocyte Esterase Negative Negative 05/29/2019 11:55 AM [facility] Urobilinogen UA 4.0(A) Negative mg/dL 05/29/2019 11:55 AM [facility] RBC UA 6-10(A) None Seen, 0-2, 3-5 /HPF 05/29/2019 11:55 AM [facility] WBC UA 0-5 None Seen, 0-5 /HPF 05/29/2019 11:55 AM [facility] Squamous Epithelial Cells UA None Seen None Seen, 0-2 /HPF 05/29/2019 11:55 AM [facility] Mucus UA 1+ None, 1+ /LPF 05/29/2019 11:55 AM [facility] Urine URINE SPECIMEN OBTAINED BY SINGLE CATHETERIZATION OF URINARY BLADDER / Unknown Collection / Unknown 05/29/2019 11:29 AM CDT 05/29/2019 11:45 AM [facility] - 05/29/2019 11:55 AM CDT Joseph Sarabia DO LAB - URINALYSIS ORD ERABLES [facility] [address] [place] [address], [facility] [phone] * XR CHEST 1VW PORTABLE (05/29/2019 5:08 [...] imaged. Dictated by Shaji Nugent MD (Resident). Dr. ESPERANZA Barnes M.D. have personally reviewed [...] imaged. Dictated by Shaji Nugent MD (Resident). Dr. ESPERANZA Barnes M.D. have personally reviewed and interpretedthis examination/study. This report was electronically signed by ESPERANZA CALZADA M.D. on 05/30/2019 8:36 AM . Ruby Heath MD DIAGNOSTIC IMAGIN G ORDERABLES * PHOSPHORUS BLOOD (05/29/2019 12:14 AM CDT) Phosphorus 2.8 2.3 - 4.7 mg/dL 05/29/2019 12:46 AM CDT [facility] Blood BLOOD SPECIMEN / Unknown Lab Venipuncture / Unknown 05/29/2019 12:14 AM CDT 05/29/2019 12:27 AM CDT Sangeetha Berman MD LAB - CHEMISTRY ALEXIS DEVRIES [address] [phone] * MAGNESIUM BLOOD (05/29/2019 12:14 AM CDT) Magnesium 2.4 1.6 - 2.6 mg/dL 05/29/2019 12:46 AM T [facility] Blood BLOOD SPECIMEN / Unknown Lab Venipuncture / Unknown 05/29/2019 12:14 AM CDT 05/29/2019 12:27 AM CDT Sangeetha Berman MD LAB - CHEMISTRY ALEXIS DEVRISE [address] [phone] * (ABNORMAL) CBC W AUTO DIFFERENTIAL (05/29/2019 12:14 AM CDT) WBC 9.9 3.5 - 10.5 10? 3 /uL 05/29/2019 12:31 AM [facility] RBC 3.42(L) 4.30 - 5.70 10? 6 /uL 05/29/2019 12:31 AM [facility] Hemoglobin 9.5(L) 13.5 - 17.5 g/dL 05/29/2019 12:31 AM [facility] Hematocrit 29.1(L) 39.0 - 50.0 % 05/29/2019 12:31 AM [facility] MCV 85.1 81.0 - 97.0 fL 05/29/2019 12:31 AM [facility] MCH 27.8(L) 28.0 - 34.0 pg 05/29/2019 12:31 AM [facility] MCHC 32.6 32.0 - 36.0 g/dL 05/29/2019 12:31 AM [facility] Platelet Count 162 150 - 400 10? 3 /uL 05/29/2019 12:31 AM [facility] RDW-SD 40.9 36.0 - 50.0 fL 05/29/2019 12:31 AM [facility] RDW-CV 13.2 11.2 - 14.8 % 05/29/2019 12:31 AM [facility] MPV 11.0 9.3 - 12.8 fL 05/29/2019 12:31 AM [facility] nRBC Absolute 0.00 0 10? 3 /uL 05/29/2019 12:31 AM [facility] nRBC Auto 0.0 0 /100 WBC 05/29/2019 12:31 AM [facility] Neutrophils % 70.1(H) 35.0 - 70.0 % 05/29/2019 12:31 AM [facility] Lymphocytes % 18.1(L) 19.7 - 55.1 % 05/29/2019 12:31 AM [facility] Monocytes % 10.3 3.0 - 15.0 % 05/29/2019 12:31 AM [facility] Eosinophils % 0.1 0.0 - 6.0 % 05/29/2019 12:31 AM [facility] Basophil % 0.3 0.0 - 1.5 % 05/29/2019 12:31 AM [facility] Neutrophils Absolute 7.0 1.6 - 7.0 10? 3 /uL 05/29/2019 12:31 AM [facility] Lymphocyte Absolute 1.8 0.8 - 2.9 10? 3 /uL 05/29/2019 12:31 AM [facility] Monocytes Absolute 1.02(H) 0.14 - 0.66 10? 3 /uL 05/29/2019 12:31 AM [facility] Eosinophils Absolute 0.01 0.00 - 0.45 10? 3 /uL 05/29/2019 12:31 AM [facility] Basophils Absolute 0.03 0.00 - 0.06 10? 3 /uL 05/29/2019 12:31 AM [facility] Immature Granulocytes % 1.1(H) 0.0 - 1.0 % 05/29/2019 12:31 AM [facility] Blood BLOOD SPECIMEN / Unknown Lab Venipuncture / Unknown 05/29/2019 12:14 AM CDT 05/29/2019 12:27 AM CDT Sangeetha Berman MD LAB - HEMATOLOGY ORD ERABLES [facility] [address] [phone] * (ABNORMAL) BASIC METABOLIC PANEL (CALCIUM TOTAL) (05/29/2019 12:14 AM CDT) BUN 14 7 - 26 mg/dL 05/29/2019 12:46 AM [facility] Creatinine 0.8 0.6 - 1.2 mg/dL 05/29/2019 12:46 AM [facility] Sodium 137 136 - 145 mmol/L 05/29/2019 12:46 AM [facility] Potassium 3.9 3.5 - 4.5 mmol/L 05/29/2019 12:46 AM [facility] Chloride 102 98 - 107 mmol/L 05/29/2019 12:46 AM [facility] CO2 24 22 - 29 mmol/L 05/29/2019 12:46 AM [facility] Glucose 108 70 - 115 mg/dL 05/29/2019 12:46 AM [facility] Calcium 8.0(L) 8.4 - 10.2 mg/dL 05/29/2019 12:46 AM [facility] Anion Gap 15 8 - 18 05/29/2019 12:46 AM [facility] BUN/Creatinine Ratio 18 7 - 23 05/29/2019 12:46 AM [facility] Osmolality Calculated 285 270 - 300 mOsm/kg 05/29/2019 12:46 AM [facility] eGFR >60 >60 mL/min/1.7 3 m2 05/29/2019 12:46 AM [facility] Blood BLOOD SPECIMEN / Unknown Lab Venipuncture / Unknown 05/29/2019 12:14 AM CDT 05/29/2019 12:27 AM CDT Sangeetha Berman MD LAB - CHEMISTRY ALEXIS DEVRIES [facility] Organization Address City/State/[place] [address], [facility] [phone] * XR CHEST 1VW (05/28/2019 4:49 AM [...] is normal. Dictated by Easton Lam MD (radiology nurse). Dr. Rico Barnes M.D. have personally reviewed and interpreted this examination/study. This report was electronically signed by Rico KLINE M.D. ??on 05/28/2019 2:43 PM . Narrative 05/28/2019 2:43 PM CDT EXAMINATION: XR CHEST 1VW HISTORY: J98.4: Posttraumatic respiratory insufficiency COMPARISON: 05/27/2019 Procedure Note Chantel Klnie MD - 05/28/2019 EXAMINATION: XR CHEST 1VW HISTORY: J98.4: Posttraumatic respiratory insufficiency COMPARISON: 05/27/2019 FINDINGS/IMPRESSION: Persistent left hemidiaphragmatic elevation with airspace opacity/atelectasis in the left lower lobe. A small associated left pleural effusion cannot be excluded. There is no focal consolidation, right pleural effusion, orpneumothorax. The cardiomediastinal silhouette is normal. Dictated by Easton Lam MD (radiology nurse). Dr. Rico Barnes M.D. have personally reviewed and interpretedthis examination/study. This report was electronically signed by Rico KLINE M.D. on 05/28/2019 2:43 PM . Sangeetha Berman MD DIAGNOSTIC IMAGING O RDERABLES * PHOSPHORUS BLOOD (05/28/2019 12:04 AM CDT) Pathologist [facility] Phosphorus 3.4 2.3 - 4.7 mg/dL 05/28/2019 1:18 AM CDT [facility] Blood BLOOD SPECIMEN / Unknown Venipuncture / Unknown 05/28/2019 12:04 AM CDT 05/28/2019 12:08 AM CDT Sangeetha Berman MD LAB - CHEMISTRY ALEXIS DEVRIES [address] [phone] * MAGNESIUM BLOOD (05/28/2019 12:04 AM CDT) Pathologist [facility] Magnesium 1.9 1.6 - 2.6 mg/dL 05/28/2019 1:18 AM T [facility] Blood BLOOD SPECIMEN / Unknown Venipuncture / Unknown 05/28/2019 12:04 AM CDT 05/28/2019 12:08 AM CDT Sangeetha Berman MD LAB - CHEMISTRY ALEXIS DEVRIES [address] [phone] * (ABNORMAL) CBC W AUTO DIFFERENTIAL (05/28/2019 12:04 AM CDT) Pathologist [facility] WBC 8.0 3.5 - 10.5 10? 3 /uL 05/28/2019 12:15 AM CDT [facility] RBC 3.81(L) 4.30 - 5.70 10? 6 /uL 05/28/2019 12:15 AM CDT [facility] Hemoglobin 10.6(L) 13.5 - 17.5 g/dL 05/28/2019 12:15 AM CDT [facility] Hematocrit 32.3(L) 39.0 - 50.0 % 05/28/2019 12:15 AM CDT [facility] MCV 84.8 81.0 - 97.0 fL 05/28/2019 12:15 AM [facility] MCH 27.8(L) 28.0 - 34.0 pg 05/28/2019 12:15 AM [facility] MCHC 32.8 32.0 - 36.0 g/dL 05/28/2019 12:15 AM [facility] Platelet Count 167 150 - 400 10? 3 /uL 05/28/2019 12:15 AM [facility] RDW-SD 39.7 36.0 - 50.0 fL 05/28/2019 12:15 AM [facility] RDW-CV 12.9 11.2 - 14.8 % 05/28/2019 12:15 AM [facility] MPV 11.0 9.3 - 12.8 fL 05/28/2019 12:15 AM [facility] nRBC Absolute 0.00 0 10? 3 /uL 05/28/2019 12:15 AM [facility] nRBC Auto 0.0 0 /100 WBC 05/28/2019 12:15 AM [facility] Neutrophils % 86.5(H) 35.0 - 70.0 % 05/28/2019 12:15 AM [facility] Lymphocytes % 7.5(L) 19.7 - 55.1 % 05/28/2019 12:15 AM [facility] Monocytes % 5.3 3.0 - 15.0 % 05/28/2019 12:15 AM [facility] Eosinophils % 0.0 0.0 - 6.0 % 05/28/2019 12:15 AM [facility] Basophil % 0.1 0.0 - 1.5 % 05/28/2019 12:15 AM [facility] Neutrophils Absolute 6.9 1.6 - 7.0 10? 3 /uL 05/28/2019 12:15 AM [facility] Lymphocyte Absolute 0.6(L) 0.8 - 2.9 10? 3 /uL 05/28/2019 12:15 AM [facility] Monocytes Absolute 0.42 0.14 - 0.66 10? 3 /uL 05/28/2019 12:15 AM [facility] Eosinophils Absolute 0.00 0.00 - 0.45 10? 3 /uL 05/28/2019 12:15 AM [facility] Basophils Absolute 0.01 0.00 - 0.06 10? 3 /uL 05/28/2019 12:15 AM [facility] Immature Granulocytes % 0.6 0.0 - 1.0 % 05/28/2019 12:15 AM [facility] Blood BLOOD SPECIMEN / Unknown Venipuncture / Unknown 05/28/2019 12:04 AM CDT 05/28/2019 12:08 AM [facility] Sangeetha Berman MD LAB - HEMATOLOGY ORD ERABLES [facility] [address] [phone] * (ABNORMAL) BASIC METABOLIC PANEL (CALCIUM TOTAL) (05/28/2019 12:04 AM [facility]) BUN 12 7 - 26 mg/dL 05/28/2019 1:18 AM [facility] Creatinine 0.9 0.6 - 1.2 mg/dL 05/28/2019 1:18 AM [facility] Sodium 143 136 - 145 mmol/L 05/28/2019 1:18 AM [facility] Potassium 4.0 3.5 - 4.5 mmol/L 05/28/2019 1:18 AM [facility] Chloride 108(H) 98 - 107 mmol/L 05/28/2019 1:18 AM [facility] CO2 25 22 - 29 mmol/L 05/28/2019 1:18 AM [facility] Glucose 123(H) 70 - 115 mg/dL 05/28/2019 1:18 AM [facility] Calcium 8.4 8.4 - 10.2 mg/dL 05/28/2019 1:18 AM [facility] Anion Gap 14 8 - 18 05/28/2019 1:18 AM [facility] BUN/Creatinine Ratio 13 7 - 23 05/28/2019 1:18 AM [facility] Osmolality Calculated 297 270 - 300 mOsm/kg 05/28/2019 1:18 AM [facility] eGFR >60 >60 mL/min/1.7 3 m2 05/28/2019 1:18 AM CDT [facility] Blood BLOOD SPECIMEN / Unknown Venipuncture / Unknown 05/28/2019 12:04 AM CDT 05/28/2019 12:08 AM CDT Sangeetha Berman MD LAB - CHEMISTRY ALEXIS DEVRIES [facility] [address] [place] [address] * [place] OARM SURGERY (05/27/2019 4:58 PM CDT) Narrative [facility] - 05/27/2019 4:59 PM CDT Fluoroscopy was used for this exam in the OR. Please see the Operative report. Esperanza Kim MD FLUOROSCOPY ORDERABL ES Performing Organization Address [facility]/ZIP Co de Phone Number [facility] * (ABNORMAL) BLOOD GASES ART COMPLETE [facility] OR (05/27/2019 4:12 PM CDT) pH Arterial 7.49(H) 7.35 - 7.45 05/27/2019 4:22 PM T [facility] pCO2 Arterial 33(L) 35 - 45 mmHg 05/27/2019 4:22 PM [facility] pO2 Arterial 144(H) 77 - 101 mmHg 05/27/2019 4:22 PM [facility] HCO3 Arterial 24.4 22.0 - 26.0 mmol/L 05/27/2019 4:22 PM [facility] TCO2 Arterial 25.5 25.0 - 29.0 mmol/L 05/27/2019 4:22 PM [facility] Base Excess Arterial 1.4 -2.0 - 2.0 mmol/L 05/27/2019 4:22 PM [facility] Hemoglobin Arterial 10.7(L) 13.5 - 17.5 g/dL 05/27/2019 4:22 PM [facility] Oxyhemoglobin Arterial 97.4 95.0 - 100.0 % 05/27/2019 4:22 PM [facility] Carboxyhemoglobin 0.1 0.0 - 3.0 % 05/27/2019 4:22 PM [facility] Methemoglobin 0.2 0.0 - 2.0 % 05/27/2019 4:22 PM [facility] FI O2 Arterial 30.0 % 05/27/2019 4:22 PM [facility] Ionized Calcium Whole Blood 1.10 mmol/L 05/27/2019 4:22 PM [facility] Adjusted Ionized Calcium 1.15(L) 1.19 - 1.34 mmol/L 05/27/2019 4:22 PM [facility] Sodium Whole Blood 142 135 - 145 mmol/L 05/27/2019 4:22 PM [facility] Potassium Whole Blood 3.8 3.5 - 5.5 mmol/L 05/27/2019 4:22 PM [facility] Chloride Whole Blood 114(H) 101 - 111 mmol/L 05/27/2019 4:22 PM [facility] Glucose Whole Blood 118(H) 70 - 110 mg/dL 05/27/2019 4:22 PM [facility] Lactic Acid Whole Blood 1.4 0.5 - 3.4 mmol/L 05/27/2019 4:22 PM [facility] Blood ARTERIAL BLOOD SPECIMEN / Unknown Venipuncture / Unknown 05/27/2019 4:12 PM CDT 05/27/2019 4:20 PM CDT Angelito Boston MD LAB - BLOOD GASES OR DERABLES Performing Organization Address City/State/[facility] Co de Phone Number [address] [phone] * (ABNORMAL) CBC W/O DIFFERENTIAL (05/27/2019 2:37 PM CDT) WBC 6.3 3.5 - 10.5 10? 3 /uL 05/27/2019 2:42 PM T [facility] RBC 3.96(L) 4.30 - 5.70 10? 6 /uL 05/27/2019 2:42 PM [facility] Hemoglobin 11.3(L) 13.5 - 17.5 g/dL 05/27/2019 2:42 PM CDT [facility] Hematocrit 33.1(L) 39.0 - 50.0 % 05/27/2019 2:42 PM CDT [facility] MCV 83.6 81.0 - 97.0 fL 05/27/2019 2:42 PM CDT [facility] MCH 28.5 28.0 - 34.0 pg 05/27/2019 2:42 PM CDT [facility] MCHC 34.1 32.0 - 36.0 g/dL 05/27/2019 2:42 PM CDT [facility] Platelet Count 156 150 - 400 10? 3 /uL 05/27/2019 2:42 PM CDT [facility] RDW-SD 39.5 36.0 - 50.0 fL 05/27/2019 2:42 PM CDT [facility] RDW-CV 12.9 11.2 - 14.8 % 05/27/2019 2:42 PM CDT [facility] MPV 11.2 9.3 - 12.8 fL 05/27/2019 2:42 PM CDT [facility] nRBC Absolute 0.00 0 10? 3 /uL 05/27/2019 2:42 PM CDT [facility] nRBC Auto 0.0 0 /100 WBC 05/27/2019 2:42 PM CDT [facility] Blood BLOOD SPECIMEN / Unknown Venipuncture / Unknown 05/27/2019 2:37 PM CDT 05/27/2019 2:39 PM CDT Susana Uriarte MD LAB - HEMATOLOGY ORD ERABLES Performing Organization Address City/State/[facility] Co de Phone Number [address] [phone] * XR CHEST 1VW PORTABLE (05/27/2019 5:31 AM CDT) Anatomical Region Laterality Modality Chest Radiographic Radha ging 05/27/2019 10:2 0 AM CDT Impressions 05/27/2019 2:52 PM CDT FINDINGS/IMPRESSION: The left hemidiaphragm is elevated. There is no focal consolidation, pleural effusion, or pneumothorax. The cardiomediastinal silhouette is normal. Report dictated by Beltran Mcdermott (radiology nurse) Dr. AL Barnes MD have personally reviewed [...] is normal. Report dictated by Beltran Mcdermott (radiology nurse) Cameron, Dr. AL LAWTON MD have personally reviewed and interpreted this examination/study. This report was electronically signed by AL LAWTON MD on05/27/2019 2:52 PM . Ruby Heath MD DIAGNOSTIC IMAGIN G ORDERABLES * PT-INR [facility] (05/27/2019 3:56 AM CDT) PT 13.9 12.1 - 14.8 Seconds 05/27/2019 4:17 AM CDT [facility] INR 1.1 See Comment 05/27/2019 4:17 AM CDT [facility] Comment:The suggested therap eutic range for standard coumadin (warfarin) therapy is an INR of 2.0-3.0. For high-risk patients (Mechanical Mitral Valve Prosthesis, etc.), the suggested prophylactic therapeutic range is an INR of 2.5-3.5. Blood BLOOD SPECIMEN / Unknown Lab Venipuncture / Unknown 05/27/2019 3:56 AM CDT 05/27/2019 4:02 AM CDT Godfrey Tinsley MD LAB - COAGULATION OR DERABLES [address] [phone] * PHOSPHORUS BLOOD (05/27/2019 3:56 AM CDT) Phosphorus 2.8 2.3 - 4.7 mg/dL 05/27/2019 4:35 AM CDT [facility] Blood BLOOD SPECIMEN / Unknown Lab Venipuncture / Unknown 05/27/2019 3:56 AM CDT 05/27/2019 4:02 AM CDT Ruby Heath MD LAB - CHEMISTRY O RDERABLES Performing Organization Address [facility]/ZIP Co de Phone Number [address] [phone] * MAGNESIUM BLOOD (05/27/2019 3:56 AM CDT) Magnesium 1.9 1.6 - 2.6 mg/dL 05/27/2019 4:35 AM CDT [facility] Blood BLOOD SPECIMEN / Unknown Lab Venipuncture / Unknown 05/27/2019 3:56 AM CDT 05/27/2019 4:02 AM CDT Ruby Heath MD LAB - CHEMISTRY O RDERABLES Performing Organization Address City/[facility]/ZIP Co de Phone Number [address] [phone] * (ABNORMAL) CBC W AUTO DIFFERENTIAL (05/27/2019 3:56 AM CDT) WBC 9.2 3.5 - 10.5 10? 3 /uL 05/27/2019 4:16 AM CDT [facility] RBC 4.15(L) 4.30 - 5.70 10? 6 /uL 05/27/2019 4:16 AM CDT [facility] Hemoglobin 11.4(L) 13.5 - 17.5 g/dL 05/27/2019 4:16 AM CDT [facility] Hematocrit 34.8(L) 39.0 - 50.0 % 05/27/2019 4:16 AM [facility] MCV 83.9 81.0 - 97.0 fL 05/27/2019 4:16 AM [facility] MCH 27.5(L) 28.0 - 34.0 pg 05/27/2019 4:16 AM [facility] MCHC 32.8 32.0 - 36.0 g/dL 05/27/2019 4:16 AM [facility] Platelet Count 167 150 - 400 10? 3 /uL 05/27/2019 4:16 AM [facility] RDW-SD 40.2 36.0 - 50.0 fL 05/27/2019 4:16 AM [facility] RDW-CV 13.2 11.2 - 14.8 % 05/27/2019 4:16 AM [facility] MPV 11.2 9.3 - 12.8 fL 05/27/2019 4:16 AM [facility] nRBC Absolute 0.00 0 10? 3 /uL 05/27/2019 4:16 AM [facility] nRBC Auto 0.0 0 /100 WBC 05/27/2019 4:16 AM [facility] Neutrophils % 75.6(H) 35.0 - 70.0 % 05/27/2019 4:16 AM [facility] Lymphocytes % 14.8(L) 19.7 - 55.1 % 05/27/2019 4:16 AM [facility] Monocytes % 8.9 3.0 - 15.0 % 05/27/2019 4:16 AM [facility] Eosinophils % 0.2 0.0 - 6.0 % 05/27/2019 4:16 AM [facility] Basophil % 0.2 0.0 - 1.5 % 05/27/2019 4:16 AM [facility] Neutrophils Absolute 6.9 1.6 - 7.0 10? 3 /uL 05/27/2019 4:16 AM [facility] Lymphocyte Absolute 1.4 0.8 - 2.9 10? 3 /uL 05/27/2019 4:16 AM [facility] Monocytes Absolute 0.81(H) 0.14 - 0.66 10? 3 /uL 05/27/2019 4:16 AM [facility] Eosinophils Absolute 0.02 0.00 - 0.45 10? 3 /uL 05/27/2019 4:16 AM [facility] Basophils Absolute 0.02 0.00 - 0.06 10? 3 /uL 05/27/2019 4:16 AM [facility] Immature Granulocytes % 0.3 0.0 - 1.0 % 05/27/2019 4:16 AM [facility] Blood BLOOD SPECIMEN / Unknown Lab Venipuncture / Unknown 05/27/2019 3:56 AM CDT 05/27/2019 4:02 AM T Ruby Heath MD LAB - HEMATOLOGY ORDERABLES [address] [phone] * (ABNORMAL) BASIC METABOLIC PANEL (CALCIUM TOTAL) (05/27/2019 3:56 AM CDT) BUN 12 7 - 26 mg/dL 05/27/2019 4:35 AM [facility] Creatinine 0.9 0.6 - 1.2 mg/dL 05/27/2019 4:35 AM [facility] Sodium 137 136 - 145 mmol/L 05/27/2019 4:35 AM [facility] Potassium 3.8 3.5 - 4.5 mmol/L 05/27/2019 4:35 AM [facility] Chloride 104 98 - 107 mmol/L 05/27/2019 4:35 AM [facility] CO2 24 22 - 29 mmol/L 05/27/2019 4:35 AM [facility] Glucose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 Provider: Evette Heredia [facility])1643 ($ Given - Provider: Jerome Rae [facility])2357 (Not Administered - Provider: London Grimes [employer]END[employer] - Reason: Patient sleeping) 0600 (Canceled Entry - Provider: London Grimes [employer])1042 ($ Given - Provider: Yuli Lee [facility]) bacitracin topical ointment (CANCELED) Topical, 3 TIMES DAILY, 30 doses, First dose on Bertha 05/26/19 at 1400, Last dose on Thu06/05/19 at 0900, Apply to facial abrasions and lacerations 0842 ($ Given - Provider: Annmarie Obregon RN)1524 ($ Given - Provider: Annmarie Obregon RN)2109 ($ Given - Provider: Gabi Calzada RN) 0946 ($ Given - Provider: Norma Buenrostro, HIRAL)1320 ($ Given - Provider: Almaz Brandon RN)2210 ($ Given - Provider: iLli Jeffers, HIRAL) 0903 ($ Given - Provider: Zaria Angel, HIRAL) bisacodyl (DULCOLAX) suppository 10 mg 10 mg, Rectal, DAILY, First dose on Thu05/26/19 at 0900, Until Discontinued 0841 ($ Given - Provider: Annmarie Obregon RN) 0945 (Not Administered - Provider: Norma Buenrostro, HIRAL - Reason: Refused-Patient) 0903 ($ Given - Provider: Zaria Angel, HIRAL) calcium carbonate (TUMS) chew tablet 1 tablet 1 tablet, Oral, 2 TIMES DAILY WITH MEALS, First dose on Thu05/30/19 at 0700, Until Discontinued 0936 (Not Administered - Provider: Norma Buenrostro RN - Reason: Refused-Patient)1815 ($ Given - Provider: Norma Buenrostro RN) 0902 ($ Given - Provider: Zaria Angel, HIRAL) calcium gluconate 2 g in 100 mL NaCl 0.675% (COMPLETED) 2 g, at 100 mL/hr, Intravenous, ONCE, 1 dose, On 05/29/19 at 0800 0929 ($ New Bag/Syringe - Provider: Annmarie Obregon RN)1030 (Stopped - Provider: Annmarie Obregon RN) ciprofloxacin (CIPRO) tablet 500 mg 500 mg, Oral, EVERY 12 HOURS, 14 doses, First dose on Bertha 05/26/19 at 0900, Last dose on Thu06/01/19 at 2100, Take with or without food, do not take with milk, yogurt or calcium-fortified juice., Indication for anti-infective therapy: Suspected infection, Site of anti-infective therapy: Skin/soft tissue 0841 ($ Given - Provider: Annmarie Obregon RN)210 ($ Given - Provider: Gabi Calzada RN) 0934 ($ Given - Provider: Norma Buenrostro RN)221 ($ Given - Provider: Lili Jeffers RN) 0902 ($ Given - Provider: Zaria Angel, HIRAL) docusate sodium (COLACE) capsule 100 mg 100 mg, Oral, DAILY, First dose on Bertha 05/26/19 at 0900, Until Discontinued 0841 ($ Given - Provider: Annmarie Obregon RN) 0934 ($ Given - Provider: Norma Buenrostro RN) 0902 ($ Given - Provider: Zaria Angel RN) famotidine (PEPCID) tablet 20 mg 20 mg, Oral, 2 TIMES DAILY, First dose on Bertha 05/26/19 at 0945, Until Discontinued 0841 ($ Given - Provider: Annmarie Obregon RN)2124 ($ Given - Provider: Gabi Calzada RN) 0934 ($ Given - Provider: Norma Buenrostro, HIRAL)2210 ($ Given - Provider: Lili Jeffers RN) 0902 ($ Given - Provider: Zaria Angel RN) heparin injection 5,000 Units 5,000 Units, Subcutaneous, EVERY 8 HOURS, First dose on Sun /12/20 at 0945, Until Discontinued 0942 ($ Given - Provider: Annmarie Obregon, RN)1508 ($ Given - Provider: Annmarie Obregon RN)2109 ($ Given - Provider: Gabi Calzada RN) 0733 ($ Given - Provider: Gabi Calzada RN)1320 ($ Given - Provider: Almaz Brandon RN)2210 ($ Given - Provider: Lili Jeffers, HIRAL) 0538 ($ Given - Provider: Lili Jeffers, HIRAL)1323 ($ Given - Provider: Zaria Angel, HIRAL) magnesium oxide (MAG-OX) tablet 400 mg 400 mg, Oral, 2 TIMES DAILY, First dose on Thu05/30/19 at 0900, Until Discontinued 0934 ($ Given - Provider: Norma Buenrostro RN)2210 ($ Given - Provider: Lili Jeffers RN) 09 ($ Given - Provider: Zaria Angel RN) montelukast (SINGULAIR) tablet 10 mg (CANCELED) 10 mg, Oral, AT BEDTIME, First dose on Thu05/26/19 at 2100, Until Discontinued 2108 ($ Given - Provider: Gabi Calzada RN) montelukast (SINGULAIR) tablet 10 mg 10 mg, Oral, DAILY, First dose (after last modification) on Thu05/30/19 at 0900, Until Discontinued 0934 ($ Given - Provider: Norma Buenrostro RN) 09 ($ Given - Provider: Zaria Angel RN) polyethylene glycol 3350 (MIRALAX) packet 17 g 17 g, Oral, DAILY, First dose on Thu05/26/19 at 0900, Until Discontinued, Hold for loose BM. Mix in 8 ounces of water, juice, soda, coffee or tea prior to administration 0841 (Not Administered - Provider: Annmarie Obregon RN - Reason: Refused-Patient) 0933 ($ Given - Provider: Norma Buenrostro RN) 0902 ($ Given - Provider: Zaria Angel RN) pxxan-xjm-rkccswig (HOG) enema 360 mL (COMPLETED) 360 mL, Rectal, ONCE, 1 dose, On Thu05/31/19 at 1100 1116 ($ Given - Provider: Zaria Angel RN) PRN Medication Order 05/29/2019 05/30/2019 05/31/2019 artificial tears ophthalmic solution 1 drop 1 drop, Each Eye, 4 TIMES DAILY PRN, Dry Eyes, Starting on Bertha 05/26/19 at 0548, Until Thu05/31/19 at 1641 caphosol Swish and Spit, PRN, Dry Mouth, Starting on Thu05/31/19 at 0253, Until Thu05/31/19 at 1641 0352 ($ Given - Provider: Lili Jeffers, HIRAL) cyclobenzaprine (FLEXERIL) tablet 5 mg 5 mg, Oral, 3 TIMES DAILY PRN, Muscle Spasms, Starting on Thu05/27/19 at 2126, Until Thu05/31/19 at 1641 0841 ($ Given - Provider: Annmarie Obregon RN)1509 ($ Given - Provider: Annmarie Obregon RN) 0003 ($ Given - Provider: Clemencia Ibrahim RN)2210 ($ Given - Provider: Lili Jeffers, HIRAL) 0902 ($ Given - Provider: Zaria Angel RN) hydrALAZINE (APRESOLINE) injection 10 mg 10 [...] 1641 0146 ($ Given - Provider: Gabi Calzada, HIRAL)0841 ($ Given - Provider: Annmarie Obregon, HIRAL)1509 ($ Given - Provider: Annmarie Obregon RN) 0003 ($ Given - Provider: Clemencia Ibrahim, RN)0522 ($ Given - Provider: Olga Orta, HIRAL)0934 (See Alternative - Provider: Norma Buenrostro, HIRAL)1320 ($ Given - Provider: Almaz Brandon RN)1814 ($ Given - Provider: Nomra Buenrostro, HIRAL)2210 ($ Given - Provider: Lili Jeffers, RN) 0336 ($ Given - Provider: Lili Jeffers, RN)0903 ($ Given - Provider: Zaria Angel, RN)1323 ($ Given - Provider: Zaria Angel, RN) oxyCODONE (immediate release) (ROXICODONE) tablet 5 mg(Linked Group 2) 5 mg, Oral, EVERY 4 HOURS PRN, Moderate Pain, Starting on Thu05/27/19 at 2020, Until Thu05/31/19 at 1641 0146 (See Alternative - Provider: Gabi Calzada RN)0841 (See Alternative - Provider: Annmarie Obregon RN)1509 (See Alternative - Provider: Annmarie Obregon RN) 0003 (See Alternative - Provider: Clemencia Ibrahim, HIRAL)0522 (See Alternative - Provider: Olga Orta, HIRAL)0934 ($ Given - Provider: Norma Buenrostro, HIRAL)1320 (See Alternative - Provider: Almaz Brandon RN)1814 (See Alternative - Provider: Norma Buenrostro, HIRAL)2210 (See Alternative - Provider: Lili Jeffers, HIRAL) 0336 (See Alternative - Provider: Lili Jeffers RN)0903 (See Alternative - Provider: Zaria Angel, HIRAL)1323 [...] Thu05/27/19 at 2020, Until Thu05/31/19 at 1641 Or oxyCODONE (immediate release) (ROXICODONE) tablet 10 mgJump to med 10 mg, Oral, EVERY 4 HOURS PRN, Severe Pain, Starting on Thu05/27/19 at 2020, Until Thu05/31/19 at 1641 documented in this encounter Care Teams Health And Safety Trainer Relationship Specialty Start Date End Date Ilan Pearson MD [address] [place] [id number] PCP - General Family Medicine 05/25/19 documented as of this encounter
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
--- OUTSIDE RECORDS SUMMARY | 2024-02-27 10:43 | XMS_ITS | Encounter Summary ---
Author Organization [facility] Address [address] [place] [address]. [place] [address] [place] [address] Care Team Providers Care Vertical Boring Mill Operator Name Role Phone Ilan Pearson MD Primary Care Provider [phone] Shorty Marks MD Unavailable Godfrey Lamb DPM Unavailable [phone] Reason for Visit * Reason Onset Date Comments Reschedule 06/19/2022 Encounter Details Date Type Department Care Team (Late st Contact Info) Description 06/19/2022 [facility]phone [facility] [address] [place] [address] Shorty Marks MD [address] [place] [address] Reschedule Social History Tobacco Use Types Packs/Day Years Used Date Smoking Tobacco: Former Alcohol Use Standard Drinks/Week Comments Not Currently [...] file Not on file Not on file COVID-19 Exposure Response Date Recorded In the last 10 days, have yo u been in contact with someone who was confirmed or suspected to have Coronavirus/COVID-19? No / Unsure 06/03/2022 12:55 PM CDT documented as of this encounter Progress Notes * Corinna Chris - 06/19/2022 1:25 PM CDT DATE/TIME:06/19/2022 1:10pm CALLER: pt #: [phone] PROVIDER/NEW PT: Dr. Marks REASON FOR CALL: I need to reschedule my apt on 07/01 REQUEST HANDLED AND HOW: I called and spoke with pt he said that on 07/01 he is having a procedure done they are going in and cleaning out his kidneys and is not carie to come on 07/01. I asked him if he wanted to come to [place] to get in sooner or stick with [place]. He said he prefers [place] I told him that Dr. Marks can see him on 08/05 and he said that was fine and his apt is made for 08/05 at 1:15 pm in [place] and pt understood. documented in this encounter Plan of Treatment Upcoming Encounters Date Type Department Care Team (Late st Contact Info) Description 08/02/2024 10:00 AM CDT Appointment [facility] [address] [facility] [place] [address] Shorty Marks MD [address] [place] [id number] 08/02/2024 11:15 AM CDT Office Visit [facility] [address] [place] [address] Shorty Marks MD [address] [place], [place] [address] documented as of this encounter Visit Diagnoses Not on filedocumented in this encounter Care Teams Vertical Boring Mill Operator Relationship Specialty Start Date End Date Ilan Pearson MD [address] [place] [address] PCP - General FAMILY PRACTICE 03/24/17 08/05/23 Shorty Marks MD [address] [place] [address] Consulting Physician INTERNAL MEDICINE 05/02/22 Godfrey Lamb DPM [address] [place], [place] [address] PODIATRY 06/13/22 documented as of this encounter
--- OUTSIDE RECORDS SUMMARY | 2024-02-27 10:43 | XMS_ITS | Encounter Summary ---
Author Organization [facility] Address [address] [place] [address]. [place] [address] [place] [address] Care Team Providers Care Flame Channeler Name Role Phone Ilan Pearson MD Primary Care Provider [phone] Jose Decker MD Unavailable Unavailab le Encounter Details Date Type Department Care Team (Latest Contact Info) Description 03/15/2022 Travel Social History Tobacco Use Types Packs/Day [...] suspected to have Coronavirus/COVID-19? No / Unsure 03/15/2022 1:05 PM POWER PLANT MECHANIC documented as of this encounter Plan of Treatment Upcoming Encounters Date Type Department Care Team (Late st Contact Info) Description 08/02/2024 10:00 AM CDT Appointment [facility] [address] [place] [address] Shorty Marks MD [address] [place], [place] [address] 08/02/2024 11:15 AM CDT Office Visit [facility] [address] [place] [address] Shorty Marks MD [address] [place] [address] documented as of this encounter Visit Diagnoses Not on filedocumented in this encounter Additional Health Concerns Infection Onset Date Last Indicated Resolved Time COVID-19 Rule Out 03/15/2022 03/15/2022 03/17/2022 8:17 PM POWER PLANT MECHANIC documented as of this encounter Care Teams Flame Channeler Relationship Specialty Start Date End Date Ilan Pearson MD [address] [place] [address] PCP - General FAMILY PRACTICE 03/24/17 08/05/23 Jose Decker MD [address] [place] [address] [employer] Winders Assembler CARDIOVASCULAR DISEASE 03/24/17 05/01/22 documented as of this encounter
--- OUTSIDE RECORDS SUMMARY | 2024-02-27 10:43 | XMS_ITS | Encounter Summary ---
Author Organization [facility] Address [address] [place] [address]. [place] [address] [place] [address] Care Team Providers Care Batting Machine Operator Name Role Phone Ilan Pearson MD Primary Care Provider [phone] Shorty Marks MD Unavailable Encounter Details Date Type Department Care Team (Late st Contact Info) Description 05/02/2022 Abstract [facility] [address] [place] [address] Shorty Marks MD [address] [place], [place] [address] Social History Tobacco Use Types Packs/Day Years [...] on file documented as of this encounter Plan of Treatment Upcoming Encounters Date Type Department Care Team (Late st Contact Info) Description 08/02/2024 10:[address] [place] [place] [address] Shorty Marks MD [address] [place] [address] 08/02/2024 11:15 AM CDT Office Visit [facility] [address] [place] [address] Shorty Marks MD [address] [place] [address] documented as of this encounter Visit Diagnoses Not on filedocumented in this encounter Care Teams Batting Machine Operator Relationship Specialty Start Date End Date Ilan Pearson MD [address] [place] [address] PCP - General FAMILY PRACTICE 03/24/17 08/05/23 Shorty Marks MD [address] [place] [address] Consulting Physician INTERNAL MEDICINE 05/02/22 documented as of this encounter
--- OUTSIDE RECORDS SUMMARY | 2024-02-27 10:43 | XMS_ITS | Clinical Summary ---
Author Organization [facility] [place] Address [address] [place] [address]. [place] [address] [place] [address] Care Team Providers Care Leak Detection Engineer Name Role Phone Shorty Marks MD Unavailable Godfrey Lamb DPShelbi Unavailable [phone] Thomas Meneses MD Primary Care Provider [phone] Allergies Active Allergy Reactions Criticality Noted Date Comments Fluoxetine GI Upset,Dizziness 02/04/2022 Gabapentin Other (see comment) 03/24/2017 Sleeplessness, and decreased labido Medications omeprazole (PRILOSEC) 20 MG capsule 04/26/2022 Active LINZESS 72 MCG capsule 06/20/2022 Active tamsulosin (FLOMAX) 0.4 MG Cap 06/09/2022 Active aspirin EC (ECOTRIN) 81 MG tablet Take 1 tablet (81 mg total) by mouth daily. 08/05/2022 Active Active Problems Problem Noted Date Diagnosed Date PAD (peripheral artery disease) 06/03/2022 Injury of cervical spinal cord ([facility]) 06/09/2019 Central cord syndrome ([facility]) 05/25/19 Mild hyperlipidemia Palpitations Family History Medical History Relation Comments Heart Attack Brother Open Heart Brother Stent Cardiac Brother Coronary artery disease Mother Heart Attack Mother Open Heart Mother Stent Cardiac Mother Relation Status Comments Brother Father Maternal Grandfather Maternal Grandmother Mother Paternal Grandfather Paternal Grandmother Social History Tobacco Use Types Packs/Day Years [...] file Not on file Not on file Last Filed Vital Signs Vital Sign Reading Time Taken Comments Blood Pressure 123/69 08/04/2023 1:54 PM CDT Pulse 78 08/04/2023 1:54 PM CDT Temperature - - Respiratory Rate 18 08/04/2023 1:54 PM CDT Oxygen Saturation 99% 08/04/2023 1:54 PM CDT Inhaled Oxygen Concentration - - Weight 71.5 kg (157 lb 11.2 oz) 08/04/2023 1:54 PM CDT Height 182.9 cm (6') 08/04/2023 1:54 PM CDT Body Mass Index 21.39 08/04/2023 1:54 PM CDT Plan of Treatment Upcoming Encounters Date Type Department Care Team (Late st Contact Info) Description 08/02/2024 10:00 AM CDT Appointment [facility] [address] [place] [address] Shorty Marks MD [address] [place] [address] 08/02/2024 11:15 AM CDT Office Visit [facility] [address] [place] [address] Shorty Marks MD [address] [place], [place] [id number] Health Maintenance Due Date Last Done Comments ASCVD LDL 1960 ASCVD Statin 1960 Colorectal Cancer Screening Colonoscopy (10 Years) 1960 Annual Physical 1965 Pneumococcal Vaccine: Pediatrics (0 to 5 Years) and At-Risk Patients (6 to 64 Years) (1 of 2 - PCV) 01/13/1968 Hepatitis C 01/13/1980 Zoster Vaccines (1 of 2) 01/13/2012 RSV Immunization or 60+ Years (1 - Risk 60-74 years 1-dose series) 2022 COVID-19 Vaccine (3 - 2023-2 5 season) 2023 10/01/2020, 09/08/2020 Influenza Adult (#1) 2023 DTaP, Tdap and Td Vaccines ( 2 - Td or Tdap) 05/24/2029 05/25/2019 Meningococcal Vaccine Aged Out No rudolph roma eligible based on patient's age to complete this topic RSV Immunizations Under 20 Months Aged Out No longer eligible b ased on patient's age to complete this topic Insurance MEDICAID [facility] [place] [id number] MEDICAID Care Teams Leak Detection Engineer Relationship Specialty Start Date End Date Thomas Meneses MD [address] [place] [address] PCP - General FAMILY PRACTICE 08/06/23 Shorty Marks MD [address] [place] [address] Consulting Physician INTERNAL MEDICINE 05/02/22 Godfrey Lamb DPM [address] [place] [address] PODIATRY 06/13/22
--- OUTSIDE RECORDS SUMMARY | 2024-02-27 10:43 | XMS_ITS | Encounter Summary ---
Author Organization [facility] Address [address] [place] [address]. [place] [address] [place] [address] Care Team Providers Care Fulfillment Representative Name Role Phone Ilan Pearson MD Primary Care Provider [phone] Shorty Marks MD Unavailable Godfrey Lamb DPM Unavailable [phone] Encounter Details Date Type Department Care Team (Latest Contact Info) Description 08/04/2023 Travel Social History Tobacco Use Types Packs/Day [...] Info) Description 08/02/2024 10:00 AM CDT Appointment [facility] [address] [place] [address] Shorty Marks MD [address] [place] [address] 08/02/2024 11:15 AM CDT Office Visit [facility] [address] [place] [address] Shorty Marks MD [address] [place], [place] [address] documented as of this encounter Visit Diagnoses Not on filedocumented in this encounter Care Teams Fulfillment Representative Relationship Specialty Start Date End Date Ilan Pearson MD [address] [place] [address] PCP - General FAMILY PRACTICE 03/24/17 08/05/23 Shorty Marks MD [address] [place], [place] [address] Consulting Physician INTERNAL MEDICINE 05/02/22 Godfrey Lamb DPM [address] [place], [place] [address] PODIATRY 06/13/22 documented as of this encounter
--- OUTSIDE RECORDS SUMMARY | 2024-02-27 10:43 | XMS_ITS | Encounter Summary ---
Author Organization [facility] Address [address] [place] [address]. [place] [address] [place] [address] Care Team Providers Care Oral And Maxillofacial Surgery Resident Name Role Phone Ilan Pearson MD Primary Care Provider [phone] Shorty Marks MD Unavailable Godfrey Lamb DPM Unavailable [phone] Encounter Details Date Type Department Care Team (Latest Contact Info) Description 08/05/2022 Travel Social History Tobacco Use Types Packs/Day [...] Info) Description 08/02/2024 10:00 AM CDT Appointment [facility] [address] [place] [address] Shorty Marks MD [address] [place] [address] 08/02/2024 11:15 AM CDT Office Visit [facility] [address] [place] [address] Shorty Marks MD [address] [place], [place] [id number] documented as of this encounter Visit Diagnoses Not on filedocumented in this encounter Care Teams Oral And Maxillofacial Surgery Resident Relationship Specialty Start Date End Date Ilan Pearson MD [address] [place] [address] PCP - General FAMILY PRACTICE 03/24/17 08/05/23 Shorty Marks MD [address] [place], [place] [id number] Consulting Physician INTERNAL MEDICINE 05/02/22 Godfrey Lamb DPM [address] [place], [place] [address] PODIATRY 06/13/22 documented as of this encounter
--- OUTSIDE RECORDS SUMMARY | 2024-02-27 10:43 | XMS_ITS | Encounter Summary ---
Author Organization [facility] Address [address] [place] [address]. [place] [address] [place] [address] Care Team Providers Care Development Educator Name Role Phone Ilan Pearson MD Primary Care Provider Jose Decker MD Unavailable Unavailab le Encounter Details Date Type Department Care Team (Latest Contact Info) Description 03/15/2022 1:07 PM DATA OFFICER - 03/15/2022 11:59 PM DATA OFFICER Hospital Encounter [facility] [address] [facility] [address] Angelito Gross MD [address] [place] [id number] Discharge Disposition: Home or Self Care (Routine Discharge) Social History Tobacco Use Types Packs/Day Years [...] Coronavirus/COVID-19? No / Unsure 03/15/2022 1:05 PM DATA OFFICER documented as of this encounter Medications at Time of Discharge Medication Sig Dispense Quantity Refills Last Filled Start D ate End Date DULoxetine (CYMBALTA) 30 MG capsule 08/22/2021 06/03/2022 FLUoxetine (PROZAC) 10 MG capsule 08/06/2021 08/05/2022 documented as of this encounter Plan of Treatment Upcoming Encounters Date Type Department Care Team (Late st Contact Info) Description 08/02/2024 10:[address] [facility] [address] [place] [address] Shorty Marks MD [address] [place], [place] [id number] 08/02/2024 11:15 AM CDT Office Visit [facility] [address] [place] [address] Shorty Marks MD [address] [place], [place] [phone] documented as of this encounter Procedures Procedure Name Priority Date/Time Associated Diagnosis Comments CORONAVIRUS (COVID 19) Routine 03/15/2022 1:16 PM DATA OFFICER Encounter for preoperative screening laboratory testing for COVID-19 virus documented in this encounter Results * PRE-SURGICAL/PRE-PROCEDURE CORONAVIRUS (COVID 19) (03/15/2022 1:16 PM DATA OFFICER) SPEC DESCRIPTION NASAL 03/15/19 1:16 PM DATA OFFICER [facility] CORONAVIRUS SARS COV 2 PCR (RESP) NEGATIVE NEGATIVE 03/17/2022 8:17 PM DATA OFFICER [facility] Comment: THE SARS-CoV-2 TEST HAS BEEN AUTHORIZED BY THE FDA UNDER AN EUA FOR USE BY AUTHORIZED LABORATORIES. PERFORMED BY NUCLEIC ACID AMPLIFICATION PCR FIRST TEST NO 03/15/2022 1:16 PM DATA OFFICER [facility] EMPLOYED IN HEALTHCARE NO 03/15/2022 1:16 PM DATA OFFICER [facility] SYMPTOMATIC DEFINED BY CDC NO 03/15/2022 1:16 PM DATA OFFICER [facility] HOSPITALIZATION STATUS NO 03/15/2022 1:16 PM DATA OFFICER [facility] PATIENT IN ICU NO 03/15/2022 1:16 PM DATA OFFICER [facility] RESIDENT OF [facility] NO 03/15/2022 1:16 PM DATA OFFICER [facility] NASAL STRUCTURE / Unknown 03/15/2022 1:16 PM DATA OFFICER us Angelito Gross MD MICROBIOLOGY - GENERAL ORDERABLE S Final Result [facility] [address] [place] [address], [facility] [address] [place] [address], documented in this encounter Visit Diagnoses Diagnosis Encounter for preoperative screening laboratory testing for COVID-19 virus documented in this encounter Additional Health Concerns Infection Onset Date Last Indicated Resolved Time COVID-19 Rule Out 03/15/2022 03/15/2022 03/17/2022 8:17 PM DATA OFFICER documented as of this encounter Care Teams Development Educator Relationship Specialty Start Date End Date Ilan Pearson MD [address] [place] [address] PCP - General FAMILY PRACTICE 03/24/17 08/05/23 Jose Decker MD [address] [place] [address] [place] Second Operator CARDIOVASCULAR DISEASE 03/24/17 05/01/22 documented as of this encounter
--- OUTSIDE RECORDS SUMMARY | 2024-02-27 10:43 | XMS_ITS | Encounter Summary ---
Author Organization [facility] Address [address] [place] [address]. [place] [address] [place] [address] Care Team Providers Care Maintenance Journeyman Name Role Phone Ilan Pearson MD Primary Care Provider [phone] Jose Decker MD Unavailable Unavailab le Encounter Details Date Type Department Care Team (Late st Contact Info) Description 03/15/[address] [facility] [address] [place] [address] Angelito Gross MD [address] [place] [phone] Social History Tobacco Use Types Packs/Day Years [...] Coronavirus/COVID-19? No / Unsure 03/15/2022 1:05 PM REPAIR WELDER documented as of this encounter Plan of Treatment Upcoming Encounters Date Type Department Care Team (Late st Contact Info) Description 08/02/2024 10:[address] [facility] [address] [place] [address] Shorty Marks MD [address] [place] [address] 08/02/2024 11:15 AM CDT Office Visit [facility] [address] [place] [address] [place] [address] Shorty Marks MD [address] [place] [address] documented as of this encounter Results * PRE-SURGICAL/PRE-PROCEDURE CORONAVIRUS (COVID 19) (03/15/2022 1:16 PM REPAIR WELDER) SPEC DESCRIPTION NASAL 03/15/19 1:16 PM REPAIR WELDER [facility] CORONAVIRUS SARS COV 2 PCR (RESP) NEGATIVE NEGATIVE 03/17/2022 8:17 PM REPAIR WELDER [facility] Comment: THE SARS-CoV-2 TEST HAS BEEN AUTHORIZED BY THE FDA UNDER AN EUA FOR USE BY AUTHORIZED LABORATORIES. PERFORMED BY NUCLEIC ACID AMPLIFICATION PCR FIRST TEST NO 03/15/2022 1:16 PM REPAIR WELDER [facility] EMPLOYED IN HEALTHCARE NO 03/15/2022 1:16 PM REPAIR WELDER [facility] SYMPTOMATIC DEFINED BY CDC NO 03/15/2022 1:16 PM REPAIR WELDER [facility] HOSPITALIZATION STATUS NO 03/15/2022 1:16 PM REPAIR WELDER [facility] PATIENT IN ICU NO 03/15/2022 1:16 PM REPAIR WELDER [facility] NO 03/15/2022 1:16 PM REPAIR WELDER [facility] NASAL STRUCTURE / Unknown 03/15/2022 1:16 PM REPAIR WELDER us Angelito Gross MD MICROBIOLOGY - GENERAL ORDERABLE S Final Result [facility] [address] [place] [address], [place] [phone] [facility] [address] [place] [address], [place] [phone] documented in this encounter Visit Diagnoses Diagnosis Encounter for preoperative screening laboratory testing for COVID-19 virus- Primary documented in this encounter Additional Health Concerns Infection Onset Date Last Indicated Resolved Time COVID-19 Rule Out 03/15/2022 03/15/2022 03/17/2022 8:17 PM REPAIR WELDER documented as of this encounter Care Teams Maintenance Journeyman Relationship Specialty Start Date End Date Ilan Pearson MD [address] [place] [address] PCP - General FAMILY PRACTICE 03/24/17 08/05/23 Jose Decker MD [address] [place] [address] [place] [employer] Machine Operator CARDIOVASCULAR DISEASE 03/24/17 05/01/22 documented as of this encounter
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
--- OUTSIDE RECORDS SUMMARY | 2024-02-27 10:43 | XMS_ITS | Encounter Summary ---
Author Organization [facility] Address [address] [place] [address]. [place] [address] [place] [address] Care Team Providers Care General Maintenance Helper Name Role Phone Ilan Pearson MD Primary Care Provider [phone] Shorty Marks MD Unavailable Encounter Details Date Type Department Care Team (Latest Contact Info) Description 06/03/2022 Travel Social History Tobacco Use Types Packs/Day [...] PM CDT documented as of this encounter Plan of Treatment Upcoming Encounters Date Type Department Care Team (Late st Contact Info) Description 08/02/2024 10:[address] [facility] [place] [address] Shorty Marks MD [address] [place] [address] 08/02/2024 11:15 AM CDT Office Visit [facility] [place] [place] [address] Shorty Marks MD [address] [place] [address] documented as of this encounter Visit Diagnoses Not on filedocumented in this encounter Care Teams General Maintenance Helper Relationship Specialty Start Date End Date Ilan Pearson MD [address] [place] [address] PCP - General FAMILY PRACTICE 03/24/17 08/05/23 Shorty Marks MD [address] [place] [address] Consulting Physician INTERNAL MEDICINE 05/02/22 documented as of this encounter
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
--- OUTSIDE RECORDS SUMMARY | 2024-02-27 10:43 | XMS_ITS | Encounter Summary ---
Author Organization [facility] Address [address] [place] [address]. [place] [address] [place] [address] Care Team Providers Care Job Printer Apprentice Name Role Phone Ilan Pearson MD Primary Care Provider [phone] Shorty Marks MD Unavailable Godfrey Lamb DPM Unavailable [phone] Reason for Visit * Reason Onset Date Comments Other 06/13/2022 Julissa pulliam/ requested H+P Encounter Details Date Type Department Care Team (Late st Contact Info) Description 06/13/2022 [facility]phone [facility] [address] [place] [address] Shorty Marks MD [address] [place] [address] Other (Julissa pulliam/ requested H+P ) Social History Tobacco Use Types Packs/Day Years [...] as of this encounter Progress Notes * Shannan Roman LPN - 06/13/2022 7:34 AM CDT Julissa pulliam/ requested H+P . Faxed as requested . documented in this encounter Plan of Treatment Upcoming Encounters Date Type Department Care Team (Late st Contact Info) Description 08/02/2024 10:00 AM CDT Appointment [address] [place] [address] Shorty Marks MD [address] [place], [place] [address] 08/02/2024 11:15 AM CDT Office Visit [facility] [place] [address] Shorty Marks MD [address] [place], [place] [address] documented as of this encounter Visit Diagnoses Not on filedocumented in this encounter Care Teams Job Printer Apprentice Relationship Specialty Start Date End Date Ilan Pearson MD [address] [place] [address] PCP - General FAMILY PRACTICE 03/24/17 08/05/23 Shorty Marks MD [address] [place] [address] Consulting Physician INTERNAL MEDICINE 05/02/22 Godfrey Lamb DPM [address] [place] [address] PODIATRY 06/13/22 documented as of this encounter
--- OUTSIDE RECORDS SUMMARY | 2024-02-27 10:43 | XMS_ITS | Encounter Summary ---
Author Organization [facility] Address [address] [place] [address]. [place] [address] [place] [address] Care Team Providers Care Bus Driver School Name Role Phone Ilan Pearson MD Primary Care Provider [phone] Shorty Marks MD Unavailable Godfrey Lamb DPM Unavailable [phone] Encounter Details Date Type Department Care Team (Latest Contact Info) Description 06/26/2022 12:48 PM CDT - 06/26/2022 11:59 PM CDT Hospital Encounter [place] [id number] [facility] [place] [address] Angelito Gross MD [address] [place] [address] Discharge Disposition: Home or Self Care [...] suspected to have Coronavirus/COVID-19? No / Unsure 06/26/2022 12:27 PM CDT documented as of this encounter Medications at Time of Discharge Medication Sig Dispense Quantity Refills Last Filled Start D ate End Date LINZESS 72 MCG capsule 06/20/2022 omeprazole (PRILOSEC) 20 MG capsule 04/26/2022 tamsulosin (FLOMAX) 0.4 MG Cap 06/09/2022 FLUoxetine (PROZAC) 10 MG capsule 08/06/2021 08/05/2022 documented as of this encounter Plan of Treatment Upcoming Encounters Date Type Department Care Team (Late st Contact Info) Description 08/02/2024 10:00 AM CDT Appointment [facility] [address] [place] [address] [place] [address] Shorty Marks MD [address] [place], [place] [phone] 08/02/2024 11:15 AM CDT Office Visit [facility] [address] [facility] [place] [address] Shorty Marks MD [address] [place], [place] [address] documented as of this encounter Procedures Procedure Name Priority Date/Time Associated Diagnosis Comments BASIC METABOLIC PANEL STAT 06/26/2022 12:45 PM CDT Renal calculus, right Ureteral stenosis, right CBC W/DIFF AUTOMATED Routine 06/26/2022 12:45 PM CDT Renal calculus, right Ureteral stenosis, right documented in this encounter Results * (ABNORMAL) CBC W/DIFF AUTOMATED (06/26/2022 12:45 PM CDT) WBC 5.55 4.00 - 10.80 x10'3/uL 06/26/2022 12:54 PM CDT [facility] RBC 4.29(L) 4.50 - 6.10 x10'6/uL 06/26/2022 12:54 PM CDT [facility] HGB 10.7(L) 13.0 - 18.0 G/DL 06/26/2022 12:54 PM CDT [facility] HCT 34.6(L) 37.0 - 52.0 % 06/26/2022 12:54 PM CDT [facility] MCV 80.7 78.0 - 100.0 FL 06/26/2022 12:54 PM CDT [facility] MCH 24.9(L) 27.0 - 31.0 PG 06/26/2022 12:54 PM CDT [facility] MCHC 30.9(L) 33.0 - 36.0 G/DL 06/26/2022 12:54 PM CDT [facility] RDW 14.1 11.5 - 14.5 % 06/26/2022 12:54 PM CDT [facility] PLT 308 150 - 350 x10'3/uL 06/26/2022 12:54 PM CDT [facility] MPV 10.6(H) 7.4 - 10.4 FL 06/26/2022 12:54 PM CDT [facility] CBC COMMENT NORMAL REFERENCE RANGE NOT ESTABLISHED FOR THE PROPORTIONAL LEUKOCYTE DIFFERENTIAL. 06/26/2022 12:54 PM CDT [facility] NEUTROPHILS % 55.5 % 06/26/2022 12:54 PM CDT [facility] LYMPHOCYTES % 32.4 % 06/26/2022 12:54 PM CDT [facility] MONOCYTES % 6.5 % 06/26/2022 12:54 PM CDT [facility] EOSINOPHILS % 4.5 % 06/26/2022 12:54 PM CDT [facility] BASOPHILS % 0.9 % 06/26/2022 12:54 PM CDT [facility] IMMATURE GRANS % 0.2 % 06/27/19 12:54 PM CDT [facility] NRBC 0.0 % 06/26/2022 12:54 PM CDT [facility] ABS. NEUTROPHILS 3.08 1.60 - 8.30 x10'3/uL 06/26/2022 12:54 PM CDT [facility] ABS. LYMPHOCYTES 1.80 0.80 - 4.70 x10'3/uL 06/26/2022 12:54 PM CDT [facility] ABS. MONOCYTES 0.36 0.00 - 1.50 x10'3/uL 06/26/2022 12:54 PM CDT [facility] ABS. EOSINOPHILS 0.25 0.00 - 0.40 x10'3/uL 06/26/2022 12:54 PM CDT [facility] ABS. BASOPHILS 0.05 0.00 - 0.20 x10'3/uL 06/26/2022 12:54 PM CDT [facility] ABS. IMMATURE GRANULOCYTES 0.01 0.00 - 0.03 x10'3/uL 06/26/2022 12:54 PM CDT [facility] ABS. NUCLEATED RBC'S 0.00 0.00 x10'3/uL 06/26/2022 12:54 PM CDT [facility] 06/26/2022 12:4 5 PM CDT us Angelito Gross MD LABORATORY Final Result [facility] [address] [place] [id number], * (ABNORMAL) BASIC METABOLIC PANEL (06/26/2022 12:45 PM CDT) SODIUM S/P/B 142 136 - 145 MMOL/L 06/26/2022 1:05 PM CDT [facility] POTASSIUM S/P/B 4.2 3.5 - 5.1 MMOL/L 06/26/2022 1:05 PM CDT [facility] CHLORIDE S/P/B 107 98 - 107 MMOL/L 06/26/2022 1:05 PM CDT [facility] CO2 29.3 21.0 - 32.0 MMOL/L 06/26/2022 1:05 PM CDT [facility] GLUCOSE 87 70 - 99 MG/DL 06/26/2022 1:05 PM CDT [facility] Comment: FASTING GLUCOSE 100 TO 125 MG/DL IS CONSISTENT WITH IMPAIRED FASTING GLUCOSE. FASTING GLUCOSE >125 MG/DL IS CONSISTENT WITH DIABETES. RANDOM GLUCOSE >200 MG/DL WITH HYPERGLYCEMIC SYMPTOMS IS CONSISTENT WITH DIABETES. PER ADA GUIDELINES BUN 16 6 - 24 MG/DL 06/26/2022 1:05 PM CDT [facility] CREATININE S/P/B 1.03 0.70 - 1.30 MG/DL 06/26/2022 1:05 PM CDT [facility] CALCIUM S/P/B 8.9 8.4 - 10.5 MG/DL 06/26/2022 1:05 PM CDT [facility] ANION GAP 5.7 5.0 - 15.0 MMOL/L 06/26/2022 1:05 PM CDT [facility] OSMOLALITY (CALC) 295 MOSM/KG 023 1:05 PM CDT [facility] Comment:REFERENCE RANGE NOT ESTABLISHED GFR ESTIMATE 83(L) >89 ML/MIN/1. 73 M2 06/26/2022 1:05 PM CDT [facility] GFR NOTES GFR REFERENCE S: 06/26/2022 1:05 PM T [facility] Comment: THE ESTIMATED GFR IS CALCULATED USING THE 2020 CKD-EPI EQUATION. THE FOLLOWING CATEGORIES FOR GRADING RENAL FUNCTION ARE RECOMMENDED BY THE INTERNATIONAL SOCIETY OF NEPHROLOGY (KDIGO 2012 CLINICAL PRACTICE GUIDELINE). G1,NORMAL OR HIGH: >89 ml/min/1.73 m2 G2,MILDLY DECREASED: 60-89 ml/min/1.73 m2 G3A,MILDLY TO MODERATELY DECREASED: 45-59 ml/min/1.73 m2 G3B,MODERATELY TO SEVERELY DECREASED: 30-44 ml/min/1.73 m2 G4,SEVERELY DECREASED: 15-29 ml/min/1.73 m2 G5,KIDNEY FAILURE: <15 ml/min/1.73 m2 06/26/2022 12:4 5 PM CDT us Angelito Gross MD LABORATORY Final Result [facility] [address] [place] [address], documented in this encounter Visit Diagnoses Diagnosis Renal calculus, right Calculus of kidney Ureteral stenosis, right Stricture or kinking of ureter documented in this encounter Care Teams Bus Driver School Relationship Specialty Start Date End Date Ilan Pearson MD [address] [place] [address] PCP - General FAMILY PRACTICE 03/24/17 08/05/23 Shorty Marks MD [address] [place], [place] [address] Consulting Physician INTERNAL MEDICINE 05/02/22 Godfrey Lamb DPM [address] [place], [place] [address] PODIATRY 06/13/22 documented as of this encounter
--- OUTSIDE RECORDS SUMMARY | 2024-02-27 10:43 | XMS_ITS | Encounter Summary ---
Author Organization [facility] Address [address] [place] [address]. [place] [address] [place] [address] Care Team Providers Care Solar Panel Installation Supervisor Name Role Phone Shorty Marks MD Unavailable Godfrey Lamb DPM Unavailable [phone] Thomas Meneses MD Primary Care Provider [phone] Reason for Visit * Reason Comments Echo (SCAN) Encounter Details Date Type Department Care Team (Late st Contact Info) Description 08/06/2023 [facility] [address] [place] [phone] Scanned, Doc Pccl Echo (SCAN) Social History Tobacco Use Types Packs/Day Years [...] CDT Appointment [facility] [address] [place] [address] Shorty aMrks MD [address] [place] [address] 08/02/2024 11:15 AM CDT Office [facility] [place] [address] Shorty Marks MD [address] [place], [place] [address] documented as of this encounter Procedures Procedure Name Priority Date/Time Associated Diagnosis Comments ECHO GENERIC (SCAN ORDER) Routine 08/06/2023 documented in this encounter Results * ECHO (08/06/2023) Anatomical Region Laterality Modality Other us Doc Pccl Scanned SCANNING Final Result documented in this encounter Visit Diagnoses Not on filedocumented in this encounter Care Teams Solar Panel Installation Supervisor Relationship Specialty Start Date End Date Thomas Meneses MD [address] [place] [address] PCP - General FAMILY PRACTICE 08/06/23 Shorty Marks MD [address] [place] [address] Consulting Physician INTERNAL MEDICINE 05/02/22 Godfrey Lamb DPM [address] [place], [place] [address] PODIATRY 06/13/22 documented as of this encounter
--- OUTSIDE RECORDS SUMMARY | 2024-02-27 10:43 | XMS_ITS | Encounter Summary ---
Author Organization [facility] Address [address] [place] [address]. [place] [address] [place] [address] Care Team Providers Care Transfusion Nurse Name Role Phone Ilan Pearson MD Primary Care Provider [phone] Shorty Marks MD Unavailable Godfrey Lamb DPM Unavailable [phone] Encounter Details Date Type Department Care Team (Late st Contact Info) Description 06/26/[address] [facility] [address] [place] [address] Angelito Gross MD [address] [address] Social History Tobacco Use Types Packs/Day [...] CDT Appointment [facility] [address] [place] [address] Shorty Marks MD [address] [place], [place] [address] 08/02/2024 11:15 AM CDT Office Visit [facility] [address] [place] [address] Shorty Marks MD [address] . [place], [place] [address] documented as of this encounter Results * (ABNORMAL) CBC W/DIFF AUTOMATED (06/26/2022 12:45 PM CDT) WBC 5.55 4.00 - 10.80 x10'3/uL 06/26/2022 12:54 PM CDT [facility] RBC 4.29(L) 4.50 - 6.10 x10'6/uL 06/26/2022 12:54 PM CDT [facility] HGB 10.7(L) 13.0 - 18.0 G/DL 06/26/2022 12:54 PM CDT [facility] HCT 34.6(L) 37.0 - 52.0 % 06/26/2022 12:54 PM CDT [facility] MCV 80.7 78.0 - 100.0 FL 06/26/2022 12:54 PM CDT [facility] MCH 24.9(L) 27.0 - 31.0 PG 06/26/2022 12:54 PM CDT [facility] MCHC 30.9(L) 33.0 - 36.0 G/DL 06/26/2022 12:54 PM CDT [facility] RDW 14.1 11.5 - 14.5 % 06/26/2022 12:54 PM CDT [facility] PLT 308 150 - 350 x10'3/uL 06/26/2022 12:54 PM CDT [facility] MPV 10.6(H) 7.4 - 10.4 FL 06/26/2022 12:54 PM CDT [facility] CBC COMMENT NORMAL REFERENCE RANGE NOT ESTABLISHED FOR THE PROPORTIONAL LEUKOCYTE DIFFERENTIAL. 06/26/2022 12:54 PM CDT [facility] NEUTROPHILS % 55.5 % 06/26/2022 12:54 PM CDT [facility] LYMPHOCYTES % 32.4 % 06/26/2022 12:54 PM CDT [facility] MONOCYTES % 6.5 % 06/26/2022 12:54 PM CDT [facility] EOSINOPHILS % 4.5 % 06/26/2022 12:54 PM CDT [facility] BASOPHILS % 0.9 % 06/26/2022 12:54 PM CDT [facility] IMMATURE GRANS % 0.2 % 06/27/19 12:54 PM CDT [facility] NRBC 0.0 % 06/26/2022 12:54 PM CDT [facility] ABS. NEUTROPHILS 3.08 1.60 - 8.30 x10'3/uL 06/26/2022 12:54 PM CDT [facility] ABS. LYMPHOCYTES 1.80 0.80 - 4.70 x10'3/uL 06/26/2022 12:54 PM CDT [facility] ABS. MONOCYTES 0.36 0.00 - 1.50 x10'3/uL 06/26/2022 12:54 PM CDT [facility] ABS. EOSINOPHILS 0.25 0.00 - 0.40 x10'3/uL 06/26/2022 12:54 PM CDT [facility] ABS. BASOPHILS 0.05 0.00 - 0.20 x10'3/uL 06/26/2022 12:54 PM CDT [facility] ABS. IMMATURE GRANULOCYTES 0.01 0.00 - 0.03 x10'3/uL 06/26/2022 12:54 PM CDT [facility] ABS. NUCLEATED RBC'S 0.00 0.00 x10'3/uL 06/26/2022 12:54 PM CDT [facility] 06/26/2022 12:4 5 PM CDT Angelito Gross MD LABORATORY Final Result [facility] [address] [place] [address], * (ABNORMAL) BASIC METABOLIC PANEL (06/26/2022 12:45 PM CDT) SODIUM S/P/B 142 136 - 145 MMOL/L 06/26/2022 1:05 PM CDT [facility] POTASSIUM S/P/B 4.2 3.5 - 5.1 MMOL/L 06/26/2022 1:05 PM CDT [facility] CHLORIDE S/P/B 107 98 - 107 MMOL/L 06/26/2022 1:05 PM CDT [facility] CO2 29.3 21.0 - 32.0 MMOL/L 06/26/2022 1:05 PM CDT [facility] GLUCOSE 87 70 - 99 MG/DL 06/26/2022 1:05 PM T [facility] Comment: FASTING GLUCOSE 100 TO 125 MG/DL IS CONSISTENT WITH IMPAIRED FASTING GLUCOSE. FASTING GLUCOSE >125 MG/DL IS CONSISTENT WITH DIABETES. RANDOM GLUCOSE >200 MG/DL WITH HYPERGLYCEMIC SYMPTOMS IS CONSISTENT WITH DIABETES. PER ADA GUIDELINES BUN 16 6 - 24 MG/DL 06/26/2022 1:05 PM CDT [facility] CREATININE S/P/B 1.03 0.70 - 1.30 MG/DL 06/26/2022 1:05 PM CDT [facility] CALCIUM S/P/B 8.9 8.4 - 10.5 MG/DL 06/26/2022 1:05 PM CDT [facility] ANION GAP 5.7 5.0 - 15.0 MMOL/L 06/26/2022 1:05 PM CDT [facility] OSMOLALITY (CALC) 295 MOSM/KG 023 1:05 PM CDT [facility] Comment:REFERENCE RANGE NOT ESTABLISHED GFR ESTIMATE 83(L) >89 ML/MIN/1. 73 M2 06/26/2022 1:05 PM CDT [facility] GFR NOTES GFR REFERENCE S: 06/26/2022 1:05 PM CDT [facility] Comment: THE ESTIMATED GFR IS CALCULATED [...] ml/min/1.73 m2 06/26/2022 12:4 5 PM CDT Angelito Gross MD LABORATORY Final Result [facility] [address] [employer] [place] [address], documented in this encounter Visit Diagnoses Diagnosis Renal calculus, right- Primary Calculus of kidney Ureteral stenosis, right Stricture or kinking of ureter documented in this encounter Care Teams Transfusion Nurse Relationship Specialty Start Date End Date Ilan Pearson MD [address] [place] [address] PCP - General FAMILY PRACTICE 03/24/17 08/05/23 Shorty Marks MD [address] [place] [address] Consulting Physician INTERNAL MEDICINE 05/02/22 Godfrey Lamb DPM [address] [place], [place] [address] PODIATRY 06/13/22 documented as of this encounter
--- OUTSIDE RECORDS SUMMARY | 2024-02-27 10:43 | XMS_ITS | Encounter Summary ---
Author Organization [facility] Address [address] [place] [address]. [place] [address] [place] [address] Care Team Providers Care Ground Water Contractor Name Role Phone Ilan Pearson MD Primary Care Provider [phone] Shorty Marks MD Unavailable Godfrey Lamb DPM Unavailable [phone] Reason for Referral * Imaging (Routine) - Closed Specialty Diagnoses / Procedures Referred By Contac t Referred To Contact RADIOLOGY Diagnoses PAD (peripheral artery disease) (CMS/HCC) Procedures [facility] Shorty Will MD [address] [place] [address] Phone: tel: fax: Referral ID Status Reason Start Date Expiration Date Visits Re quested Visits Authorized [id number] Closed 08/05/2022 09/05/2023 1 1 Reason for Visit * Imaging (Routine) - Closed Specialty Diagnoses / Procedures Referred By Contac t Referred To Contact RADIOLOGY Diagnoses PAD (peripheral artery disease) ([facility]/HCC) Procedures [facility] Shorty Will MD [address] [place] [address] Phone: tel: fax: Referral ID Status Reason Start Date Expiration Date Visits Re quested Visits Authorized [id number] Closed 08/05/2022 09/05/2023 1 1 Encounter Details Date Type Department Care Team (Latest Contact Info) Description 08/04/2023 1:20 PM CDT - 08/04/2023 11:59 PM CDT Hospital Encounter [facility] [address] [place] [address] Shorty Marks MD [address] [place], [place] [address] Discharge Disposition: Home or Self Care (Routine [...] on file documented as of this encounter Medications at Time of Discharge aspirin EC (ECOTRIN) 81 MG tablet Take 1 tablet (81 mg total) by mouth daily. 08/05/2022 LINZESS 72 MCG capsule 06/20/2022 omeprazole (PRILOSEC) 20 MG capsule 04/26/2022 tamsulosin (FLOMAX) 0.4 MG Cap 06/09/2022 documented as of this encounter Plan of Treatment Upcoming Encounters Date Type Department Care Team (Late st Contact Info) Description 08/02/2024 10:[address] [facility] [address] [place] [address] Shorty Marks MD [address] [place], [place] [address] 08/02/2024 11:15 AM CDT Office Visit [facility] [place] [phone] Shorty Marks MD [address] [place], [place] [address] documented as of this encounter Procedures Procedure Name Priority Date/Time Associated Diagnosis Comments [facility] CANDICE Routine 08/04/2023 2:12 PM CDT PAD (peripheral artery disease) (CMS/HCC) documented in this encounter Results * [facility] CANDICE (08/04/2023 2:12 PM CDT) Anatomical Region Laterality Modality Extremity Ultrasound 08/04/2023 1:29 PM CDT Narrative 08/06/2023 5:36 PM CDT ?Outreach Arterial Doppler [facility] ?Vascular Report Pat.Name: ??Ajit Tyler ?Pat.ID: ?[id number] ? St.Date: ?? 08/04/2023 ? Refer.MD: ??Outreach, [facility] Exam Time: 1:29:00 PM ? Study Type:OUTREACH ART DOPPLER - [facility] ??Age: ??1960,63Y ?Sex: ? M ? Sonogrphr: silvino Flannery rdms, rvt, rdcs Pat. Stat.:Outpatient ? Reason for Study:PAD (peripheral artery disease) Procedures: Study performed at [facility], [place], [place] and interpreted by [facility]. ++++++++++++++++++++++++++++++++++++ SUMMARY: ++++++++++++++++++++++++++++++++++++ BEAU Rt: [...] Outreach Arterial Doppler [facility] Vascular Report Pat.Name: Ajit Tyler Pat.ID: [id number] .Date: 08/04/2023 Refer.MD: Dani, [facility] Exam Time: 1:29:00 PM Study Type:OUTREACH ART DOPPLER - [facility] Age: 13 1960,63Y Sex: M Sonogrphr: silvino Flannery rdms, rvt, rdcs Pat. Stat.:Outpatient Reason for Study:PAD (peripheral artery disease) Procedures: Study performed at [place], [place] and interpreted by [facility]. ++++++++++++++++++++++++++++++++++++ SUMMARY: ++++++++++++++++++++++++++++++++++++ [facility]UA Rt: The resting BEAU is 0.90. BEAU [...] PM Shorty Marks M.D. Shorty Marks MD VAS Final Result documented in this encounter Visit Diagnoses Diagnosis PAD (peripheral artery disease) ([facility]) Peripheral vascular disease, unspecified documented in this encounter Care Teams Ground Water Contractor Relationship Specialty Start Date End Date Ilan Pearson MD [address] [place] [address] PCP - General FAMILY PRACTICE 03/24/17 08/05/23 Shorty Marks MD [address] [place] [id number] Consulting Physician INTERNAL MEDICINE 05/02/22 Godfrey Lamb DPM [address] [place] [id number] PODIATRY 06/13/22 documented as of this encounter
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
--- OUTSIDE RECORDS SUMMARY | 2024-02-27 10:43 | XMS_ITS | Encounter Summary ---
Author Organization [facility] Address [address] [place] [address]. [place] [address] [place] [address] Care Team Providers Care Refining Still Operator Name Role Phone Ilan Pearson MD Primary Care Provider [phone] Shorty Marks MD Unavailable Godfrey Lamb DPM Unavailable [phone] Reason for Visit * Reason Onset Date Comments Results 07/02/2022 Encounter Details Date Type Department Care Team (Late st Contact Info) Description 07/02/2022 Telephone [facility] [address] [place] [address] Shorty Marks MD [address] [place] [address] Results Social History Tobacco Use Types Packs/Day Years [...] encounter Progress Notes * Corinna Chris - 07/02/2022 4:14 PM CDT VM DATE/TIME:07/02/2022 3:59pm CALLER: Marlyn/ PH #: [phone] PROVIDER/NEW PT: Dr. Marks REASON FOR CALL: I called earlier and spoke with May about getting this pts CTA results and I never did get those. You can fax them to [phone] REQUEST HANDLED AND HOW: I refaxed the results * Shannan Roman LPN - 07/02/2022 11:[address] Marks had reviewed CTA Aorta with runoff and request that Dr Ilan Pearson manage. 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 Marks note . documented in this encounter Plan of Treatment Upcoming Encounters Date Type Department Care Team (Late st Contact Info) Description 08/02/2024 10:00 AM CDT Appointment [facility] [address] [place] [address] Shorty Marks MD [address] [place], [place] [address] 08/02/2024 11:15 AM CDT Office Visit [facility] [address] [place] [address] Shorty Marks MD [address] [place], [place] [address] documented as of this encounter Visit Diagnoses Not on filedocumented in this encounter Care Teams Refining Still Operator Relationship Specialty Start Date End Date Ilan Pearson MD [address] [place] [address] PCP - General FAMILY PRACTICE 03/24/17 08/05/23 Shorty Marks MD [address] [place] [id number] Consulting Physician INTERNAL MEDICINE 05/02/22 Godfrey Lamb DPM [address] [place], [place] [address] PODIATRY 06/13/22 documented as of this encounter
--- OUTSIDE RECORDS SUMMARY | 2024-02-27 10:43 | XMS_ITS | Encounter Summary ---
Author Organization [facility] Address [address] [place] [address]. [place] [address] [place] [address] Care Team Providers Care Sand Mill Operator Facing Sand Name Role Phone Ilan Pearson MD Primary Care Provider [phone] Shorty Marks MD Unavailable Godfrey Lamb DPM Unavailable [phone] Reason for Referral * Imaging (Routine) - Closed Specialty Diagnoses / Procedures Referred By Contac t Referred To Contact RADIOLOGY Diagnoses PAD (peripheral artery disease) ([facility]) Procedures CTA AORTO ILIOFEM RUNOFF Shorty Marks MD [address] [place] [address] Phone: tel: fax: Referral ID Status Reason Start Date Expiration Date Visits Re quested Visits Authorized [id number] Closed 06/03/2022 06/04/2023 1 1 Reason for Visit * Imaging (Routine) - Closed Specialty Diagnoses / Procedures Referred By Contac t Referred To Contact RADIOLOGY Diagnoses PAD (peripheral artery disease) ([facility]) Procedures CTA AORTO ILIOFEM RUNOFF Shorty Marks MD [address] [place] [address] Phone: tel: fax: Referral ID Status Reason Start Date Expiration Date Visits Re quested Visits Authorized [id number] Closed 06/03/2022 06/04/2023 1 1 Encounter Details Date Type Department Care Team (Latest Contact Info) Description 06/26/2022 12:28 PM CDT - 06/26/2022 12:47 PM CDT Hospital Encounter [facility] [address] [place] [address] Shorty Marks MD [address] [place], [place] [address] Discharge Disposition: Home or Self Care (Routine [...] Appointment [facility] [address] [place] [address] Shorty Marks MD [address] [place] [address] 08/02/2024 11:15 AM CDT Office Visit [facility] [address] [place] [address] Shorty Tapia MD [address] [place] [address] documented as of this encounter Procedures Procedure Name Priority Date/Time Associated Diagnosis Comments CTA AORTO ILIOFEM RUNOFF Routine 06/26/2022 1:07 PM CDT PAD (peripheral artery disease) documented in this encounter Results * CTA AORTO ILIOFEM [...] Visit Diagnoses Diagnosis PAD (peripheral artery disease) ([facility]) Peripheral vascular disease, unspecified documented in this encounter Administered Medications Inactive Administered Medications - up to 3 most recent administrations Medication Order MAR Action Action Date Dose Rate Site iopamidol (ISOVUE-370) 76 % injection 92 mL 92 mL, Intravenous, IMG once as needed, Contrast, 1 dose, Starting on Bertha 06/26/22 at 1307, Until Bertha 06/26/22 at 1308 Given 06/26/2022 1:08 PM CDT 92 mLs documented in this encounter Care Teams Sand Mill Operator Facing Sand Relationship Specialty Start Date End Date Ilan Pearson MD [address] [place] [address] PCP - General FAMILY PRACTICE 03/24/17 08/05/23 Shorty Marks MD [address] [place], [place] [address] Consulting Physician INTERNAL MEDICINE 05/02/22 Godfrey Lamb DPM [address] [place], [place] [address] PODIATRY 06/13/22 documented as of this encounter
--- OUTSIDE RECORDS SUMMARY | 2024-02-27 10:43 | XMS_ITS | Encounter Summary ---
Author Organization [facility] Address [address] [place] [address]. [place] [address] [place] [address] Care Team Providers Care Cigar Inspector Name Role Phone Ilan Pearson MD Primary Care Provider [phone] Jose Decker MD Unavailable Unavailab le Reason for Visit * Reason Onset Date Comments Consult 04/25/2022 Peripheral Vascu lar Disease Encounter Details Date Type Department Care Team (Late st Contact Info) Description 04/25/2022 Telephone [facility] [address] [place] [address] Shorty Marks MD [address] [place], [place] [address] Consult (Peripheral Vascular Disease) Social History Tobacco Use Types Packs/Day Years [...] as of this encounter Progress Notes * Alphonsejohn Rhodeskimbersandra - 04/25/2022 8:51 AM CST REFERRAL/PCP: Ilan Ma MD INS: [facility]/Cristy Ramirez Complete PPO APPT PROV/DATE/TIME: Dr Wood:[facility]-06/03/2022 at 1 pm TESTING NEEDED/SCHEDULED: no STAFF MSG SENT: no COVID+TEST/EXPOSURE IN LAST 14 DAYS: n/a RECORDS NEEDED: no MYCHART OFFERED: no LETTER SENT: yes CARE TEAM: notified Patient expresses understanding, questions answered. Dr Godfrey Bhat office will be faxing all information regarding the patient and his vascular concerns to [phone]. D ENGINEER documented in this encounter Plan of Treatment Upcoming Encounters Date Type Department Care Team (Late st Contact Info) Description 08/02/2024 10:00 AM CDT Appointment [address] [place] [address] Shorty Marks MD [address] [place], [place] [id number] 08/02/2024 11:15 AM CDT Office Visit [facility] [place] [address] Shorty Marks MD [address] [place], [place] [address] documented as of this encounter Visit Diagnoses Not on filedocumented in this encounter Care Teams Cigar Inspector Relationship Specialty Start Date End Date Ilan Pearson MD [address] [place] [address] PCP - General FAMILY PRACTICE 03/24/17 08/05/23 Jose Decker MD [address] [place] [address] [place] Brick Wheeler CARDIOVASCULAR DISEASE 03/24/17 05/01/22 documented as of this encounter
--- OUTSIDE RECORDS SUMMARY | 2024-02-27 10:43 | XMS_ITS | Encounter Summary ---
Author Organization [facility] Address [address] [place] [address]. [place] [address] [place] [address] Care Team Providers Care Department Chairperson Name Role Phone Ilan Pearson MD Primary Care Provider [phone] Shorty Marks MD Unavailable Godfrey Lamb DPM Unavailable [phone] Reason for Visit * Reason Onset Date Comments Appointment Reminder 08/03/2023 Encounter Details Date Type Department Care Team (Late st Contact Info) Description 08/03/2023 [facility]phone [facility] [address] [place] [address] Shorty Marks MD [address] [place] [address] Appointment Reminder Social History Tobacco Use Types Packs/Day Years [...] as of this encounter Progress Notes * Steve Rodriguez - 08/03/2023 2:56 PM CDT Spoke with patient and confirmed appt for tomorrow with [place] in [place]. documented in this encounter Plan of Treatment Upcoming Encounters Date Type Department Care Team (Late st Contact Info) Description 08/02/2024 10:00 AM CDT Appointment [facility] [place] [address] Shorty Marks MD [address] [place], [place] [address] 08/02/2024 11:15 AM CDT Office Visit [facility] [address] [place] [address] Shorty Marks MD [address] [place], [place] [address] documented as of this encounter Visit Diagnoses Not on filedocumented in this encounter Care Teams Department Chairperson Relationship Specialty Start Date End Date Ilan Pearson MD [address] [place] [address] PCP - General FAMILY PRACTICE 03/24/17 08/05/23 Shorty Marks MD [address] [place] [address] Consulting Physician INTERNAL MEDICINE 05/02/22 Godfrey Lamb DPM [address] [place], [place] [address] PODIATRY 06/13/22 documented as of this encounter
--- OUTSIDE RECORDS SUMMARY | 2024-02-27 10:43 | XMS_ITS | Encounter Summary ---
Author Organization [facility] Address [address] [place] [address]. [place] [address] [place] [address] Care Team Providers Care Mesmerist Name Role Phone Ilan Pearson MD Primary Care Provider [phone] Shorty Marks MD Unavailable Encounter Details Date Type Department Care Team (Late st Contact Info) Description 05/16/2022 Abstract [facility] [address] [place] [address] Shorty Marks MD [address] [place], [place] [address] Social History Tobacco Use Types Packs/Day Years [...] AM CDT [address] [place] [place] [address] Shorty Marks MD [address] [place] [address] 08/02/2024 11:15 AM CDT Office Visit [facility] [address] [place] [address] Shorty Marks MD [address] [place] [address] documented as of this encounter Visit Diagnoses Not on filedocumented in this encounter Care Teams Mesmerist Relationship Specialty Start Date End Date Ilan Pearson MD [address] [place] [address] PCP - General FAMILY PRACTICE 03/24/17 08/05/23 Shorty Marks MD [address] [place] [address] Consulting Physician INTERNAL MEDICINE 05/02/22 documented as of this encounter
--- OUTSIDE RECORDS SUMMARY | 2024-02-27 10:43 | XMS_ITS | Encounter Summary ---
Author Organization [facility] Address [address] [place] [address]. [place] [address] [place] [address] Care Team Providers Care Vp Name Role Phone Ilan Pearson MD Primary Care Provider [phone] Shorty Marks MD Unavailable Godfrey Lamb DPM Unavailable [phone] Encounter Details Date Type Department Care Team (Latest Contact Info) Description 06/26/2022 Travel Social History Tobacco Use Types Packs/Day [...] 08/02/2024 10:[address] [place] [address] Shorty Marks MD [address] [place] [address] 08/02/2024 11:15 AM CDT Office [facility] [place] [address] Shorty Marks MD [address] [place], [place] [address] documented as of this encounter Visit Diagnoses Not on filedocumented in this encounter Care Teams Vp Relationship Specialty Start Date End Date Ilan Pearson MD [address] [place] [address] PCP - General FAMILY PRACTICE 03/24/17 08/05/23 Shorty Marks MD [address] [place] [address] Consulting Physician INTERNAL MEDICINE 05/02/22 Godfrey Lamb DPM [address] [place] [address] PODIATRY 06/13/22 documented as of this encounter
--- OUTSIDE RECORDS SUMMARY | 2024-02-27 10:44 | XMS_ITS | Encounter Summary ---
Author Organization [facility] Address [address] [place] [address]. [place] [address] [place] [address] Care Team Providers Care Toll Service Observer Name Role Phone Ilan Pearson MD Primary Care Provider [phone] Jose Decker MD Unavailable Unavailab le Reason for Visit * Reason Comments Lab (SCAN) Encounter Details Date Type Department Care Team (Late st Contact Info) Description 01/16/2022 Scan [facility] [address] [place] [address] Scanned, Doc Hospital Lab (SCAN) Social History Tobacco Use Types Packs/Day Years Used Date Smoking Tobacco: Former Alcohol Use Standard Drinks/Week Comments Yes 0 (1 standard drink = 0.6 oz [...] suspected to have Coronavirus/COVID-19? No / Unsure 02/04/2022 2:42 PM PIZZA HUT TEAM MEMBER documented as of this encounter Plan of Treatment Upcoming Encounters Date Type Department Care Team (Late st Contact Info) Description 08/02/2024 10:[address] [place] [address] Shorty Marks MD [address] [place] [address] 08/02/2024 11:15 AM CDT Office Visit [facility] [place] [address] Shorty Marks MD [address] [place] [address] documented as of this encounter Procedures Procedure Name Priority Date/Time Associated Diagnosis Comments OUTSIDE LAB (SCAN ORDER) Routine 01/16/2022 12:00 AM PIZZA HUT TEAM MEMBER documented in this encounter Results * OUTSIDE LAB (SCAN) (01/16/2022 12:00 AM PIZZA HUT TEAM MEMBER) 01/16/2022 us Doc Hospital Scanned SCANNING Final Resul t [facility] ON[facility] documented in this encounter Visit Diagnoses Not on filedocumented in this encounter Care Teams Toll Service Observer Relationship Specialty Start Date End Date Ilan Pearson MD [address] [place] [address] PCP - General FAMILY PRACTICE 03/24/17 08/05/23 Jose Decker MD [address] [place] [address] [place] Cager CARDIOVASCULAR DISEASE 03/24/17 05/01/22 documented as of this encounter
--- OUTSIDE RECORDS SUMMARY | 2024-02-27 10:44 | XMS_ITS | Encounter Summary ---
Author Organization [facility] Address [address] [place] [address]. [place] [address] [place] [address] Care Team Providers Care Clinical Nurse Reviewer Name Role Phone Ilan Pearson MD Primary Care Provider [phone] Jose Decker MD Unavailable Unavailab le Reason for Referral * Imaging (Routine) - Closed Specialty Diagnoses / Procedures Referred By Contac t Referred To Contact RADIOLOGY Diagnoses Neurogenic dysfunction of the urinary bladder Procedures US BLADDER Martina Hidalgo III, MD Phone: tel: fax: Referral ID Status Reason Start Date Expiration Date Visits Re quested Visits Authorized [id number] Closed 04/10/2020 05/08/2021 1 1 VERER Reason for Visit * Imaging (Routine) - Closed Specialty Diagnoses / Procedures Referred By Contac t Referred To Contact RADIOLOGY Diagnoses Neurogenic dysfunction of the urinary bladder Procedures US BLADDER Martina Hidalgo III, MD Phone: tel: fax: Referral ID Status Reason Start Date Expiration Date Visits Re quested Visits Authorized [id number] Closed 04/10/2020 05/08/2021 1 1 Encounter Details Date Type Department Care Team (Latest Contact Info) Description 04/17/2020 11:00 AM RECOVERER - 04/17/2020 11:59 PM RECOVERER Hospital Encounter [facility] [address] [place] [address] [place] [address] [place] [phone] Discharge Disposition: Home or Self Care (Routine [...] have Coronavirus / COVID-19? No / Unsure 04/17/2020 11:04 AM RECOVERER documented as of this encounter Medications at Time of Discharge albuterol sulfate HFA (PROAIR HFA) 108 (90 BASE) MCG/ACT inhaler Inhale 2 puffs into the lungs every 4 (four) hours as needed for Wheezing. 02/04/2022 meloxicam 15 MG tablet Take 15 mg by mouth daily. 02/04/2022 oxyCODONE-acetami nophen 5-325 MG tablet Take 2 tablets by mouth every 8 (eight) hours as needed for Pain. 02/04/2022 ranitidine 150 MG tablet Take 150 mg by mouth 2 (two) times daily. 02/04/2022 documented as of this encounter Plan of Treatment Upcoming Encounters Date Type Department Care Team (Late st Contact Info) Description 08/02/2024 10:00 AM CDT Appointment [facility] [address] [place] [address] Shorty Marks MD [address] [place], [place] [address] 08/02/2024 11:15 AM CDT Office Visit [facility] [address] [place] [address] Shorty Marks MD [address] [place] [address] documented as of this encounter Procedures Procedure Name Priority Date/Time Associated Diagnosis Comments US BLADDER Routine 04/17/2020 11:30 AM RECOVERER Neurogenic dysfunction of the urinary bladder documented in this encounter Results * US BLADDER (04/17/2020 11:30 AM RECOVERER) Anatomical Region Laterality Modality Renal Ultrasound 04/17/2020 12:0 2 PM RECOVERER Impressions 04/17/2020 12:06 PM RECOVERER IMPRESSION: 1. Unremarkable sonographic appearance of the bladder. The bilateral ureteral jets are noted. 2. Bladder volumes as above. The post voiding residual volume measures greater than than the prevoiding volume. Referred By: MARTINA HIDALGO III Interpreted By: Rudolph Zacarias MD, 04/17/2020 12:02 PM Narrative 04/17/2020 12:06 PM RECOVERER Examination: US BLADDER Exam time: 04/17/2020 11:30 AM Clinical history: NEUROGENIC DYSFUNCTION OF THE URINARY BLADDER Comparison: Ultrasound 08/04/2019. Technique: Grayscale and color Doppler sonographic images of the urinary bladder. Findings: The urinary bladder wall appears unremarkable. No masslike regions are identified. No definite diverticulum. The bilateral ureteral jets are noted. Prevoiding bladder volume: 138 mL. Post voiding bladder volume: 200 mL Procedure Note Rudolph Zacarias MD - 04/17/2020 Examination: US BLADDER Exam time: 04/17/2020 11:30 AM Clinical history: NEUROGENIC DYSFUNCTION OF THE URINARY BLADDER Comparison: Ultrasound 08/04/2019. Technique: Grayscale and color Doppler sonographic images of the urinary bladder. Findings: The urinary bladder wall appears unremarkable. No masslike regions are identified. No definite diverticulum. Thebilateral ureteral jets are noted. Prevoiding bladder volume: 138 mL. Post voiding bladder volume: 200 mL IMPRESSION: 1. Unremarkable sonographic appearance of the bladder. The bilateral ureteral jets are noted. 2. Bladder volumes as above. The post voiding residual volume measures greater than than the prevoiding volume. Referred By: MARTINA HIDALGO III Interpreted By: Rudolph Zacarias MD, 04/17/2020 12:02 PM us Martina Hidalgo III, MD ULTRASOUND Final Re sult documented in this encounter Visit Diagnoses Diagnosis Neurogenic dysfunction of the urinary bladder Neurogenic bladder, NOS documented in this encounter Care Teams Clinical Nurse Reviewer Relationship Specialty Start Date End Date Ilan Pearson MD [address] [place] [address] PCP - General FAMILY PRACTICE 03/24/17 08/05/23 Jose Decker MD [address] [place] [address] [place] Credit Investigator CARDIOVASCULAR DISEASE 03/24/17 05/01/22 documented as of this encounter
--- OUTSIDE RECORDS SUMMARY | 2024-02-27 10:44 | XMS_ITS | Encounter Summary ---
Author Organization [facility] Address [address] [place] [address]. [place] [address] [place] [address] Care Team Providers Care Caddy Packer Name Role Phone Ilan Pearson MD Primary Care Provider [phone] Jose Decker MD Unavailable Unavailab le Encounter Details Date Type Department Care Team (Latest Contact Info) Description 06/26/2020 Travel Social History Tobacco Use Types Packs/Day [...] have Coronavirus / COVID-19? No / Unsure 06/26/2020 11:03 AM CDT documented as of this encounter Plan of Treatment Upcoming Encounters Date Type Department Care Team (Late st Contact Info) Description 08/02/2024 10:00 AM CDT Appointment [facility] [address] [place] [address] Shorty Marks MD [address] [place], [place] [address] 08/02/2024 11:15 AM CDT Office Visit [facility] [address] [place] [address] Shorty Marks MD [address] [place] [address] documented as of this encounter Visit Diagnoses Not on filedocumented in this encounter Care Teams Caddy Packer Relationship Specialty Start Date End Date Ilan Pearson MD [address] [place] [address] PCP - General FAMILY PRACTICE 03/24/17 08/05/23 Jose Decker MD [address] [place] [address] [place] Dry Cell Battery Assembler CARDIOVASCULAR DISEASE 03/24/17 05/01/22 documented as of this encounter
--- OUTSIDE RECORDS SUMMARY | 2024-02-27 10:44 | XMS_ITS | Encounter Summary ---
Author Organization [facility] Address [address] [place] [address]. [place] [address] [place] [address] Care Team Providers Care Lead Informatica Developer Name Role Phone Ilan Pearson MD Primary Care Provider [phone] Jose Decker MD Unavailable Unavailab le Reason for Referral * Imaging (Routine) - Closed Specialty Diagnoses / Procedures Referred By Contac t Referred To Contact RADIOLOGY Diagnoses Kidney stone Procedures CT ABD WO Martina Cole III, MD Phone: tel: fax: Referral ID Status Reason Start Date Expiration Date Visits Re quested Visits Authorized [id number] Closed 06/19/2020 07/20/2021 1 1 Reason for Visit * Imaging (Routine) - Closed Specialty Diagnoses / Procedures Referred By Contac t Referred To Contact RADIOLOGY Diagnoses Kidney stone Procedures CT ABD WO Martina Cole III, MD Phone: tel: fax: Referral ID Status Reason Start Date Expiration Date Visits Re quested Visits Authorized [id number] Closed 06/19/2020 07/20/2021 1 1 Encounter Details Date Type Department Care Team (Latest Contact Info) Description 06/26/2020 11:00 AM CDT - 06/26/2020 11:59 PM CDT Hospital Encounter [place] [facility] [address] [place] [address] [place] [address] [place] [id number] Discharge Disposition: Home or Self Care (Routine [...] AM CDT documented as of this encounter Medications [...] Info) Description 08/02/2024 10:00 AM CDT Appointment [facility] [address] [place] [address] Shorty Marks MD [address] [place], [place] [address] 08/02/2024 11:15 AM CDT Office Visit [facility] [address] [place] [address] Shorty Marks MD [address] [place], [place] [address] documented as of this encounter Procedures Procedure Name Priority Date/Time Associated Diagnosis Comments CT ABD WO CON Routine 06/26/2020 11:27 AM CDT Kidney stone documented in this encounter Results * CT ABD WO CON (06/26/2020 11:27 AM CDT) Anatomical Region Laterality Modality Abdomen Computed Tomogra phy 06/27/2020 2:48 AM CDT Impressions 06/27/2020 2:56 AM CDT Impression: 1. Multiple nonobstructing stones are identified in both kidneys. No ureteral stones or hydronephrosis. 2. Small umbilical hernia containing fat and a partial loop of nonobstructed small bowel. 3. Small fat-containing right inguinal hernia. Referred By: MARTINA HIDALGO III Interpreted By: Rudolph Zacarias MD, 06/27/2020 2:48 AM Narrative 06/27/2020 2:56 AM CDT Examination: CT ABD WO CON Clinical Information: Kidney stones. Comparison: Ultrasound May 17, 2020. Technique: IV contrast: None Oral contrast: None.. Technical comments: Standard technique. Dose reduction: This CT exam was performed using one or more of the following dose reduction techniques: Automated exposure control, adjustment of the mA and/or kV according to patient size, and/or use of iterative reconstruction technique. Findings: LOWER CHEST Heart is normal in size. Scattered atelectasis noted in the posterior right lower lobe. No pleural or pericardial effusions. UPPER ABDOMEN Liver and bile ducts: Normal in size and contour. No biliary dilatation. Gallbladder: Gallbladder in situ. No gallbladder wall thickening or pericholecystic fluid. Pancreas: Negative. Spleen: Negative. RETROPERITONEUM Adrenals: Negative. Kidneys: Multiple small 1 to 2 mm stones are identified within the right kidney. Multiple nonobstructing stones are seen within the left kidney, the largest measures approximately 3 mm in the lower pole. No ureteral stones or hydronephrosis identified. Lymph nodes: No lymphadenopathy in the abdomen or pelvis. BOWEL AND PERITONEUM Bowel: Normal in caliber and wall thickness. Free air or fluid: None. VASCULATURE Atherosclerotic calcifications of the abdominal aorta without aneurysm. BONES/SOFT TISSUES Small fat-containing right inguinal hernia. Small umbilical hernia containing fat and a partial loop of nonobstructed small bowel. No acute osseous abnormality identified. Procedure Note Rudolph Zacarias MD - 06/27/2020 Examination: CT ABD WO CON Clinical Information: Kidney stones. Comparison: Ultrasound May 17, 2020. Technique: IV contrast: None Oral contrast: None.. Technical comments: Standard technique. Dose reduction: This CT exam was performed using one or more of the following dose reduction techniques: Automated exposure control,adjustment of the mA and/or kV according to patient size, and/or use of iterative reconstruction technique. Findings: LOWER CHEST Heart is normal in size. Scattered atelectasis noted in the posteriorright lower lobe. No pleural or pericardial effusions. UPPER ABDOMEN Liver and bile ducts: Normal in size and contour. No biliary dilatation. Gallbladder: Gallbladder in situ. No gallbladder wall thickening or pericholecystic fluid. Pancreas: Negative. Spleen: Negative. RETROPERITONEUM Adrenals: Negative. Kidneys: Multiple small 1 to 2 mm stones are identified within the right kidney. Multiple nonobstructing stones are seen within the left kidney,the largest measures approximately 3 mm in the lower pole. No ureteralstones or hydronephrosis identified. Lymph nodes: No lymphadenopathy in the abdomen or pelvis. BOWEL AND PERITONEUM Bowel: Normal in caliber and wall thickness. Free air or fluid: None. VASCULATURE Atherosclerotic calcifications of the abdominal aorta without aneurysm. BONES/SOFT TISSUES Small fat-containing right inguinal hernia. Small umbilical hernia containing fat and a partial loop of nonobstructed small bowel. No acute osseous abnormality identified. Impression: 1. Multiple nonobstructing stones are identified in both kidneys. No ureteral stones or hydronephrosis. 2. Small umbilical hernia containing fat and a partial loop of nonobstructed small bowel. 3. Small fat-containing right inguinal hernia. Referred By: MARTINA HIDALGO III Interpreted By: Rudolph Zacarias MD, 06/27/2020 2:48 AM Martina Hidalgo III, MD CT Final Re sult documented in this encounter Visit Diagnoses Diagnosis Kidney stone Calculus of kidney documented in this encounter Care Teams Lead Informatica Developer Relationship Specialty Start Date End Date Ilan Pearson MD [address] [place] [address] PCP - General FAMILY PRACTICE 03/24/17 08/05/23 Jose Decker MD [address] [place] [address] [place] Superintendent [employer] CARDIOVASCULAR DISEASE 03/24/17 05/01/22 documented as of this encounter
--- OUTSIDE RECORDS SUMMARY | 2024-02-27 10:44 | XMS_ITS | Encounter Summary ---
Author Organization [facility] Address [address] [place] [address]. [place] [address] [place] [address] Care Team Providers Care Business Development Name Role Phone Ilan Pearson MD Primary Care Provider [phone] Jose Decker MD Unavailable Unavailab le Encounter Details Date Type Department Care Team (Late st Contact Info) Description 10/08/[address] [facility] [address] [place] [address] Ilya Terrell MD [address] [address] [place], [place] [address] Social History Tobacco Use Types Packs/Day Years [...] suspected to have Coronavirus/COVID-19? No / Unsure 10/08/2021 10:31 AM CDT documented as of this encounter Plan of Treatment Upcoming Encounters Date Type Department Care Team (Late st Contact Info) Description 08/02/2024 10:[address] [facility] [address] [place] [address] Shorty Marks MD [address] [place] [address] 08/02/2024 11:15 AM CDT Office Visit [facility] [place] [address] Shorty Marks MD [address] [place] [address] documented as of this encounter Results * (ABNORMAL) PRE-SURGICAL/PRE-PROCEDURE CORONAVIRUS (COVID 19) (10/08/2021 10:43 AM CDT) SPEC DESCRIPTION NASAL 10/09/19 10:42 AM CDT [facility] CORONAVIRUS SARS COV 2 PCR (RESP) POSITIVE( AA) NEGATIVE 10/08/2021 9:12 PM CDT [facility] Comment: THE SARS-CoV-2 TEST HAS BEEN AUTHORIZED BY THE FDA UNDER AN EUA FOR USE BY AUTHORIZED LABORATORIES. PERFORMED BY NUCLEIC ACID AMPLIFICATION PCR CALLED TO VAMSHI 10/09/2021 0745 R and V FIRST TEST NO 10/08/2021 10:42 AM CDT [facility] EMPLOYED IN HEALTHCARE NO 10/08/2021 10:42 AM CDT [facility] SYMPTOMATIC DEFINED BY CDC NO 10/08/2021 10:42 AM CDT [facility] HOSPITALIZATION STATUS NO 10/08/2021 10:42 AM CDT [facility] PATIENT IN ICU NO 10/08/2021 10:42 AM CDT [facility] RESIDENT OF [facility] CARE NO 10/08/2021 10:42 AM CDT [facility] NASAL STRUCTURE / Unknown 10/08/2021 10:43 AM CDT us Ilya Terrell MD MICROBIOLOGY - GENERAL ORDERABLE S Final Result [facility] [address] [place] [address], documented in this encounter Visit Diagnoses Diagnosis Encounter for screening for COVID-19- Primary documented in this encounter Additional Health Concerns Infection Onset Date Last Indicated Resolved Time COVID-19 Rule Out 10/08/2021 10/08/2021 10/08/2021 9:12 PM CDT COVID-19 Confirmed 10/08/2021 10/08/2021 12:34 AM CDT documented as of this encounter Care Teams Business Development Relationship Specialty Start Date End Date Ilan Pearson MD [address] [place] [address] PCP - General FAMILY PRACTICE 03/24/17 08/05/23 Jose Decker MD [address] [place] [address] [place] Director Of [employer] CARDIOVASCULAR DISEASE 03/24/17 05/01/22 documented as of this encounter
--- OUTSIDE RECORDS SUMMARY | 2024-02-27 10:44 | XMS_ITS | Encounter Summary ---
Author Organization [facility] Address [address] [place] [address]. [place] [address] [place] [address] Care Team Providers Care Broom Bundler Name Role Phone Ilan Pearson MD Primary Care Provider [phone] Jose Decker MD Unavailable Unavailab le Encounter Details Date Type Department Care Team (Late st Contact Info) Description 05/09/[address] [facility] [address] [place] [address] [place] [address] [place] [phone] Social History Tobacco Use Types Packs/Day Years [...] have Coronavirus / COVID-19? Unable to assess 05/09/2020 1:23 PM CDT documented as of this encounter Plan of Treatment Upcoming Encounters Date Type Department Care Team (Late st Contact Info) Description 08/02/2024 10:[address] [facility] [address] [place] [address] Shorty Marks MD [address] [place] [address] 08/02/2024 11:15 AM CDT Office Visit [facility] [address] [place] [address] Shorty Marks MD [address] [place] [address] documented as of this encounter Results * CULTURE URINE (05/09/2020 1:20 PM CDT) SPEC DESCRIPTION URINE STRAIGHT CATH 05/09/2020 1:23 PM CDT [facility] SPECIAL REQUESTS NO SPECIAL REQUEST 05/09/2020 1:23 PM CDT [facility] CULTURE RESULT >100,000 CFU/mL STAPHYLOCOCCU S, COAGULASE NEGATIVE 05/11/2020 1:14 PM CDT [facility] URINE SPECIMEN OBTAINED BY SINGLE CATHETERIZATION OF URINARY BLADDER / Unknown 05/09/2020 1:20 PM CDT 05/09/2020 1:25 PM CDT Narrative Organism Antibiotic Method Susceptibility Staphylococcus, coagulase negative NITROFURANTOIN JHOANA (VITEK) Sensitive Staphylococcus, coagulase negative GENTAMICIN JHOANA (V ITEK) Sensitive Staphylococcus, coagulase negative OXACILLIN JHOANA (V ITEK) Resistant Staphylococcus, coagulase negative PENICILLIN G JHOANA (V ITEK) Resistant Staphylococcus, coagulase negative RIFAMPIN JHOANA (V ITEK) Sensitive Staphylococcus, coagulase negative TRIMETH-SULFAMETH. JHOANA (VITEK) Resistant Staphylococcus, coagulase negative TETRACYCLINE JHOANA (V ITEK) Resistant Staphylococcus, coagulase negative TIGECYCLINE JHOANA (V ITEK) Sensitive Staphylococcus, coagulase negative VANCOMYCIN JHOANA (V ITEK) Sensitive us Jessie Hidalgo III, MD MICROBIOLOGY - GENERAL O RDERABLES Final Result [facility] [address] [place] [address], [place] [phone] [id number] [facility] [address] [place] [address], [place] [phone] * (ABNORMAL) URINALYSIS (05/09/2020 1:20 PM CDT) COLOR (U) YELLOW 05/09/2020 1:35 PM CDT [facility] TRANSPARENCY CLEAR 05/09/2020 1:35 PM CDT [facility] SPECIFIC GRAVITY (U) 1.015 1.000 - 1.025 05/09/2020 1:35 PM CDT [facility] U PH 6.5 5.0 - 8.0 05/09/2020 1:35 PM CDT [facility] LEUKOCYTES (U) TRACE(A) NEGATIVE 05/09/2020 1:35 PM CDT [facility] NITRITES NEGATIVE NEGATIVE 05/09/2020 1:35 PM CDT [facility] PROTEIN (U) NEGATIVE NEGATIVE 05/09/2020 1:35 PM CDT [facility] URINE GLUCOSE NEGATIVE NEGATIVE 05/09/2020 1:35 PM CDT [facility] KETONES MG/DL (U) NEGATIVE NEGATIVE 05/09/2020 1:35 PM CDT [facility] UROBILINOGEN 0.2 <1.0 EU/DL 05/09/2020 1:35 PM CDT [facility] BILIRUBIN (U) NEGATIVE NEGATIVE 05/09/2020 1:35 PM CDT [facility] BLOOD (U) 2+(A) NEGATIVE 05/09/2020 1:35 PM CDT [facility] WBC/HPF 0-5 0 - 5 /HPF 05/09/2020 1:35 PM CDT [facility] RBC/HPF 5-10(A) 0 - 5 /HPF 05/09/2020 1:35 PM CDT [facility] EPI/HPF OCCASIONAL /LPF 05/09/2020 1:35 PM CDT [facility] BACTERIA (U) TRACE /HPF 05/09/2020 1:35 PM CDT [facility] URINE, STRAIGHT CATH 05/09/2020 1:20 PM CDT us Jessie Hidalgo III, MD URINE ORDERABLES Final R esult [facility] [address] [place] [address], documented in this encounter Visit Diagnoses Diagnosis Retention of urine, unspecified- Primary Neurogenic dysfunction of the urinary bladder Neurogenic bladder, NOS UTI (urinary tract infection) Urinary tract infection, site not specified documented in this encounter Care Teams Broom Bundler Relationship Specialty Start Date End Date Ilan Pearson MD [address] [place] [address] PCP - General FAMILY PRACTICE 03/24/17 08/05/23 Jose Decker MD [address] [place] [address] [employer] Ancillary Services Manager CARDIOVASCULAR DISEASE 03/24/17 05/01/22 documented as of this encounter
--- OUTSIDE RECORDS SUMMARY | 2024-02-27 10:44 | XMS_ITS | Encounter Summary ---
Author Organization [facility] Address [address] [place] [address]. [place] [address] [place] [address] Care Team Providers Care Agricultural Economist Name Role Phone Ilan Pearson MD Primary Care Provider [phone] Jose Decker MD Unavailable Unavailab le Encounter Details Date Type Department Care Team (Latest Contact Info) Description 10/08/2021 10:30 AM CDT - 10/08/2021 11:59 PM CDT Hospital Encounter [facility] [address] [facility] [place] [address] Ilya Terrell MD [address] [address] [place] [address] Discharge Disposition: Home or Self Care (Routine [...] (four) hours as needed for Wheezing. 02/04/2022 DULoxetine (CYMBALTA) 30 MG capsule 08/22/2021 06/03/2022 FLUoxetine (PROZAC) 10 MG capsule 08/06/2021 08/05/2022 LINZESS 72 MCG capsule Take 1 capsule by mouth daily. 09/19/2021 02/12/2022 meloxicam 15 MG tablet Take 15 mg by mouth daily. 02/04/2022 omeprazole (PRILOSEC) 20 MG capsule Take 1 capsule by mouth daily. 09/07/2021 02/12/2022 ondansetron (ZOFRAN) 8 MG tablet Take 1 tablet by mouth every 8 (eight) hours as needed. 05/22/2021 02/12/2022 oxyCODONE-acetami nophen 5-325 MG tablet Take 2 tablets by mouth every 8 (eight) hours as needed for Pain. 02/04/2022 ranitidine 150 MG tablet Take 150 mg by mouth 2 (two) times daily. 02/04/2022 documented as of this encounter Plan of Treatment Upcoming Encounters Date Type Department Care Team (Late st Contact Info) Description 08/02/2024 10:[address] [facility] [place] [address] Shorty Marks MD [address] [place] [address] 08/02/2024 11:15 AM CDT Office Visit [facility] [facility] [address] [place] [address] Shorty Marks MD [address] [place] [address] documented as of this encounter Procedures Procedure Name Priority Date/Time Associated Diagnosis Comments CORONAVIRUS (COVID 19) Routine 10/08/2021 10:43 AM CDT Encounter for screening for COVID-19 documented in this encounter Results * (ABNORMAL) PRE-SURGICAL/PRE-PROCEDURE CORONAVIRUS (COVID 19) (10/08/2021 10:43 AM CDT) SPEC DESCRIPTION NASAL 10/09/19 10:42 AM CDT [facility] CORONAVIRUS SARS COV 2 PCR (RESP) POSITIVE( AA) NEGATIVE 10/08/2021 9:12 PM CDT [facility] Comment: THE SARS-CoV-2 TEST HAS BEEN AUTHORIZED BY THE FDA UNDER AN EUA FOR USE BY AUTHORIZED LABORATORIES. PERFORMED BY NUCLEIC ACID AMPLIFICATION PCR CALLED TO VAMSHI 10/09/2021 0745 R and V FIRST TEST NO 10/08/2021 10:42 AM CDT [facility] EMPLOYED IN HEALTHCARE NO 10/08/2021 10:42 AM CDT [facility] SYMPTOMATIC DEFINED BY CDC NO 10/08/2021 10:42 AM CDT [facility] HOSPITALIZATION STATUS NO 10/08/2021 10:42 AM CDT [facility] PATIENT IN ICU NO 10/08/2021 10:42 AM CDT [facility] RESIDENT OF [facility] CARE NO 10/08/2021 10:42 AM CDT [facility] NASAL STRUCTURE / Unknown 10/08/2021 10:43 AM CDT Ilya Terrell MD MICROBIOLOGY - GENERAL ORDERABLE S Final Result [facility] [address] [place] [address], documented in this encounter Visit Diagnoses Diagnosis Encounter for screening for COVID-19 documented in this encounter Additional Health Concerns Infection Onset Date Last Indicated Resolved Time COVID-19 Rule Out 10/08/2021 10/08/2021 10/08/2021 9:12 PM CDT COVID-19 Confirmed 10/08/2021 10/08/2021 12:34 AM CDT documented as of this encounter Care Teams Agricultural Economist Relationship Specialty Start Date End Date Ilan Pearson MD [address] [place] [address] PCP - General FAMILY PRACTICE 03/24/17 08/05/23 Jose Decker MD [address] [place] [id number] Orange Piece Cutter CARDIOVASCULAR DISEASE 03/24/17 05/01/22 documented as of this encounter
--- OUTSIDE RECORDS SUMMARY | 2024-02-27 10:44 | XMS_ITS | Encounter Summary ---
Author Organization [facility] Address [address] [place] [address]. [place] [address] [place] [address] Care Team Providers Care Patient Relations Liaison Name Role Phone Ilan Pearson MD Primary Care Provider [phone] Jose Decker MD Unavailable Unavailab le Encounter Details Date Type Department Care Team (Latest Contact Info) Description 02/04/2022 Travel Social History Tobacco Use Types Packs/Day [...] Coronavirus/COVID-19? No / Unsure 02/04/2022 2:42 PM SILVICULTURE PROFESSOR documented as of this encounter Plan of Treatment Upcoming Encounters Date Type Department Care Team (Late st Contact Info) Description 08/02/2024 10:00 AM CDT Appointment [facility] [address] [place] [address] Shorty Marks MD [address] [place], [place] [address] 08/02/2024 11:15 AM CDT Office Visit [facility] [address] [place] [address] Shorty Marks MD [address] [place] [address] documented as of this encounter Visit Diagnoses Not on filedocumented in this encounter Care Teams Patient Relations Liaison Relationship Specialty Start Date End Date Ilan Pearson MD [address] [place], [place] [id number] PCP - General FAMILY PRACTICE 03/24/17 08/05/23 Jose Decker MD [address] [place] [address] [place] Produce Department Manager CARDIOVASCULAR DISEASE 03/24/17 05/01/22 documented as of this encounter
--- OUTSIDE RECORDS SUMMARY | 2024-02-27 10:44 | XMS_ITS | Encounter Summary ---
Author Organization [facility] Address [address] [place] [address]. [place] [address] [place] [address] Care Team Providers Care Yoker Machine Operator Name Role Phone Ilan Pearson MD Primary Care Provider [phone] Jose Decker MD Unavailable Unavailab le Encounter Details Date Type Department Care Team (Latest Contact Info) Description 06/30/2020 Travel Social History Tobacco Use Types Packs/Day [...] have Coronavirus / COVID-19? No / Unsure 06/30/2020 11:43 AM CDT documented as of this encounter Plan of Treatment Upcoming Encounters Date Type Department Care Team (Late st Contact Info) Description 08/02/2024 10:00 AM CDT Appointment [facility] [address] [place] [address] Shorty Marks MD [address] [place], [place] [address] 08/02/2024 11:15 AM CDT Office Visit [facility] [address] [place] [address] Shorty Marks MD [address] [place] [address] documented as of this encounter Visit Diagnoses Not on filedocumented in this encounter Additional Health Concerns Infection Onset Date Last Indicated Resolved Time COVID-19 Rule Out 06/30/2020 06/30/2020 07/02/2020 7:56 PM CDT documented as of this encounter Care Teams Yoker Machine Operator Relationship Specialty Start Date End Date Ilan Pearson MD [address] [place] [address] PCP - General FAMILY PRACTICE 03/24/17 08/05/23 Jose Decker MD [address] [place] [address] [place] Taximeter Repairer CARDIOVASCULAR DISEASE 03/24/17 05/01/22 documented as of this encounter
--- OUTSIDE RECORDS SUMMARY | 2024-02-27 10:44 | XMS_ITS | Encounter Summary ---
Author Organization [facility] Address [address] [place] [address]. [place] [address] [place] [address] Care Team Providers Care Emergency Services Dispatcher Name Role Phone Ilan Pearson MD Primary Care Provider [phone] Jose Decker MD Unavailable Unavailab le Reason for Visit * Reason Comments Lab (SCAN) ECG (SCAN) Encounter Details Date Type Department Care Team (Late Contact Info) Description 01/16/2022 Scan [facility] Information [facility] [address] [place] [address] Scanned, [facility] Lab (SCAN); ECG (SCAN) Social History Tobacco Use Types Packs/Day [...] Coronavirus/COVID-19? No / Unsure 02/04/2022 2:42 PM TWISTING OPERATOR documented as of this encounter Plan of Treatment Upcoming Encounters Date Type Department Care Team (Late Contact Info) Description 08/02/2024 10:[address] [facility] [address] [place] [address] Shorty Marks MD [address] [place], [place] [address] 08/02/2024 11:15 AM CDT Office Visit [facility] [place] [address] Shorty Marks MD [address] [place] [address] documented as of this encounter Procedures Procedure Name Priority Date/Time Associated Diagnosis Comments ECG GENERIC (SCAN ORDER) Routine 01/16/2022 12:00 AM TWISTING OPERATOR OUTSIDE LAB (SCAN ORDER) Routine 01/16/2022 12:00 AM TWISTING OPERATOR documented in this encounter Results * OUTSIDE LAB (SCAN) (01/16/2022 12:00 AM TWISTING OPERATOR) 01/16/2022 [facility] Scanned SCANNING Final Resul t Performing Organization Address City/[facility]/ZIP Co de Phone Number [facility] ONBASE * ECG (01/16/2022 12:00 AM TWISTING OPERATOR) 01/16/2022 us [facility] Scanned SCANNING Final Resul t HS ONBASE documented in this encounter Visit Diagnoses Not on filedocumented in this encounter Care Teams Emergency Services Dispatcher Relationship Specialty Start Date End Date Ilan Pearson MD [address] [place] [address] PCP - General FAMILY PRACTICE 03/24/17 08/05/23 Jose Decker MD [address] [place] [address] [place] Dinkey Dispatcher CARDIOVASCULAR DISEASE 03/24/17 05/01/22 documented as of this encounter
--- OUTSIDE RECORDS SUMMARY | 2024-02-27 10:44 | XMS_ITS | Encounter Summary ---
Author Organization [facility] Address [address] [place] [address]. [place] [address] [place] [address] Care Team Providers Care Weblogic Developer Name Role Phone Ilan Pearson MD Primary Care Provider [phone] Jose Decker MD Unavailable Unavailab le Encounter Details Date Type Department Care Team (Latest Contact Info) Description 05/09/2020 Travel Social History Tobacco Use Types Packs/Day [...] Info) Description 08/02/2024 10:00 AM CDT Appointment [facility] [address] [place] [address] Shorty Marks MD [address] [place], [place] [address] 08/02/2024 11:15 AM CDT Office Visit [facility] [address] [place] [phone] Shorty Marks MD [address] [place] [address] documented as of this encounter Visit Diagnoses Not on filedocumented in this encounter Care Teams Weblogic Developer Relationship Specialty Start Date End Date Ilan Pearson MD [address] [place] [address] PCP - General FAMILY PRACTICE 03/24/17 08/05/23 Jose Decker MD [address] [place] [address] [place] Crocheter CARDIOVASCULAR DISEASE 03/24/17 05/01/22 documented as of this encounter
--- OUTSIDE RECORDS SUMMARY | 2024-02-27 10:44 | XMS_ITS | Encounter Summary ---
Author Organization [facility] Address [address] [place] [address]. [place] [address] [place] [address] Care Team Providers Care Bar Steward Name Role Phone Ilan Pearson MD Primary Care Provider [phone] Jose Decker MD Unavailable Unavailab le Encounter Details Date Type Department Care Team (Late st Contact Info) Description 04/10/[address] [facility] [address] [place] [address] [place] [address] [place] [phone] Social History Tobacco Use Types Packs/Day [...] have Coronavirus / COVID-19? Unable to assess 04/10/2020 2:48 PM RISK CONTROL PRODUCT LIABILITY DIRECTOR documented as of this encounter Plan of Treatment Upcoming Encounters Date Type Department Care Team (Late st Contact Info) Description 08/02/2024 10:[address] [facility] [address] [place] [address] Shorty Marks MD [address] [place] [address] 08/02/2024 11:15 AM CDT Office Visit [facility] [place] [address] Shorty Marks MD [address] [place] [address] documented as of this encounter Results * (ABNORMAL) BASIC METABOLIC PANEL (04/10/2020 3:11 PM RISK CONTROL PRODUCT LIABILITY DIRECTOR) [facility] SODIUM S/P/B 141 136 - 145 MMOL/L 04/10/2020 3:24 PM [facility] POTASSIUM S/P/B 4.3 3.5 - 5.1 MMOL/L 04/10/2020 3:24 PM [facility] CHLORIDE S/P/B 103 98 - 107 MMOL/L 04/10/2020 3:24 PM [facility] CO2 27.1 21.0 - 32.0 MMOL/L 04/10/2020 3:24 PM [facility] GLUCOSE 112(H) 70 - 99 MG/DL 04/10/2020 3:24 PM [facility] Comment: FASTING GLUCOSE 100 TO 125 MG/DL IS CONSISTENT WITH IMPAIRED FASTING GLUCOSE. FASTING GLUCOSE >125 MG/DL IS CONSISTENT WITH DIABETES. RANDOM GLUCOSE >200 MG/DL WITH HYPERGLYCEMIC SYMPTOMS IS CONSISTENT WITH DIABETES. PER ADA GUIDELINES BUN 16 6 - 24 MG/DL 04/10/2020 3:24 PM [facility] CREATININE S/P/B 0.79 0.70 - 1.30 MG/DL 04/10/2020 3:24 PM [facility] CALCIUM S/P/B 9.1 8.4 - 10.5 MG/DL 04/10/2020 3:24 PM [facility] ANION GAP 10.9 5.0 - 15.0 MMOL/L 04/10/2020 3:24 PM [facility] OSMOLALITY (CALC) 294 MOSM/KG 021 3:24 PM [facility] Comment:REFERENCE RANGE NOT ESTABLISHED EGFR NON-AFR. AMER. >90 >89 ML/MIN/1. 73 M2 04/10/2020 3:24 PM RISK CONTROL PRODUCT LIABILITY DIRECTOR [facility] EGFR AFR. AMER. >90 >89 ML/MIN/1. 73 M2 04/10/2020 3:24 PM RISK CONTROL PRODUCT LIABILITY DIRECTOR [facility] GFR NOTES GFR REFERENCE S: 04/10/2020 3:24 PM RISK CONTROL PRODUCT LIABILITY DIRECTOR [facility] Comment: THE ESTIMATED GFR IS CALCULATED USING THE 2009 CKD-EPI EQUATION. THE FOLLOWING CATEGORIES FOR GRADING RENAL FUNCTION ARE RECOMMENDED BY THE INTERNATIONAL SOCIETY OF NEPHROLOGY (KDIGO 2012 CLINICAL PRACTICE GUIDELINE). G1,NORMAL OR HIGH: >89 ml/min/1.73 m2 G2,MILDLY DECREASED: 60-89 ml/min/1.73 m2 G3A,MILDLY TO MODERATELY DECREASED: 45-59 ml/min/1.73 m2 G3B,MODERATELY TO SEVERELY DECREASED: 30-44 ml/min/1.73 m2 G4,SEVERELY DECREASED: 15-29 ml/min/1.73 m2 G5,KIDNEY FAILURE: <15 ml/min/1.73 m2 04/10/2020 3:11 PM RISK CONTROL PRODUCT LIABILITY DIRECTOR us Jessie Hidalgo III, MD LABORATORY Final Re sult [facility] [address] [place] [address], documented in this encounter Visit Diagnoses Diagnosis Neurogenic dysfunction of the urinary bladder- Primary Neurogenic bladder, NOS documented in this encounter Care Teams Bar Steward Relationship Specialty Start Date End Date Ilan Pearson MD [address] [place] [address] PCP - General FAMILY PRACTICE 03/24/17 08/05/23 Jose Decker MD [address] [place] [address] [place] Medical Geneticist CARDIOVASCULAR DISEASE 03/24/17 05/01/22 documented as of this encounter
--- OUTSIDE RECORDS SUMMARY | 2024-02-27 10:44 | XMS_ITS | Encounter Summary ---
Author Organization [facility] Address [address] [place] [address]. [place] [address] [place] [address] Care Team Providers Care Export Coordinator Name Role Phone Ilan Pearson MD Primary Care Provider [phone] Jose Decker MD Unavailable Unavailab le Encounter Details Date Type Department Care Team (Late st Contact Info) Description 06/30/[address] [facility] [address] [place] [address] Ilan Pearson MD [address] [place] [address] Social History Tobacco Use Types Packs/Day Years [...] Appointment [facility] [address] [place] [place] [address] Shorty Marks MD [address] [place], [place] [address] 08/02/2024 11:15 AM CDT Office Visit [facility] [address] [place] [address] Shorty Marks MD [address] [place] [address] documented as of this encounter Results * PRE-SURGICAL/PRE-PROCEDURE CORONAVIRUS (COVID 19) (06/30/2020 11:50 AM CDT) SPEC DESCRIPTION NASOPHARYNGEAL SWAB 06/30/2020 11:50 AM CDT [facility] CORONAVIRUS SARS COV 2 PCR (RESP) NEGATIVE NEGATIVE 07/02/2020 7:56 PM CDT [facility] Comment: THE SARS-CoV-2 TEST HAS BEEN AUTHORIZED BY THE FDA UNDER AN EUA FOR USE BY AUTHORIZED LABORATORIES. PERFORMED BY NUCLEIC ACID AMPLIFICATION PCR FIRST TEST NO 06/30/2020 11:50 AM CDT [facility] EMPLOYED IN HEALTHCARE NO 06/30/2020 11:50 AM CDT [facility] SYMPTOMATIC DEFINED BY CDC NO 06/30/2020 11:50 AM CDT [facility] HOSPITALIZATION STATUS NO 06/30/2020 11:50 AM CDT [facility] PATIENT IN ICU NO 06/30/2020 11:50 AM CDT [facility] RESIDENT OF [facility] NO 06/30/2020 11:50 AM CDT [facility] NASOPHARYNGEAL SWAB / Unknown 06/30/2020 11:50 AM CDT us Ilan Pearson MD MICROBIOLOGY - GENERAL ORDERA BLES Final Result [facility] [address] [place] [address], [place] [phone] [facility] [address] [place] [address], [place] [phone] documented in this encounter Visit Diagnoses Diagnosis Preop examination- Primary Preoperative examination, unspecified documented in this encounter Additional Health Concerns Infection Onset Date Last Indicated Resolved Time COVID-19 Rule Out 06/30/2020 06/30/2020 07/02/2020 7:56 PM CDT documented as of this encounter Care Teams Export Coordinator Relationship Specialty Start Date End Date Ilan Pearson MD [address] [place] [address] PCP - General FAMILY PRACTICE 03/24/17 08/05/23 Jose Decker MD [address] [place] [address] [place] Csm Consultant CARDIOVASCULAR DISEASE 03/24/17 05/01/22 documented as of this encounter
--- OUTSIDE RECORDS SUMMARY | 2024-02-27 10:44 | XMS_ITS | Encounter Summary ---
Author Organization [facility] Address [address] [place] [address]. [place] [address] [place] [address] Care Team Providers Care Mixer Driver Name Role Phone Ilan Pearson MD Primary Care Provider [phone] Jose Decker MD Unavailable Unavailab le Encounter Details Date Type Department Care Team (Latest Contact Info) Description 10/08/2021 Travel Social History Tobacco Use Types Packs/Day [...] Info) Description 08/02/2024 10:00 AM CDT Appointment [facility] [address] [place] [address] Shorty Marks MD [address] [place], [place] [address] 08/02/2024 11:15 AM CDT Office Visit [facility] [address] [place] [address] Shorty Marks MD [address] [place] [address] documented as of this encounter Visit Diagnoses Not on filedocumented in this encounter Additional Health Concerns Infection Onset Date Last Indicated Resolved Time COVID-19 Rule Out 10/08/2021 10/08/2021 10/08/2021 9:12 PM CDT COVID-19 Confirmed 10/08/2021 10/08/2021 12:34 AM CDT documented as of this encounter Care Teams Mixer Driver Relationship Specialty Start Date End Date Ilan Pearson MD [address] [place] [address] PCP - General FAMILY PRACTICE 03/24/17 08/05/23 Jose Decker MD [address] [place] [address] [place] [employer] Operations Manager CARDIOVASCULAR DISEASE 03/24/17 05/01/22 documented as of this encounter
--- OUTSIDE RECORDS SUMMARY | 2024-02-27 10:44 | XMS_ITS | Encounter Summary ---
Author Organization [facility] Address [address] [place] [address]. [place] [address] [place] [address] Care Team Providers Care Shell Coremaker Name Role Phone Ilan Pearson MD Primary Care Provider [phone] Jose Decker MD Unavailable Unavailab le Encounter Details Date Type Department Care Team (Latest Contact Info) Description 08/27/2021 Travel Social History Tobacco Use Types Packs/Day [...] suspected to have Coronavirus/COVID-19? No / Unsure 08/27/2021 10:40 AM CDT documented as of this encounter Plan of Treatment Upcoming Encounters Date Type Department Care Team (Late st Contact Info) Description 08/02/2024 10:00 AM CDT Appointment [facility] [address] [place] [address] Shorty Marks MD [address] [place], [place] [address] 08/02/2024 11:15 AM CDT Office Visit [facility] [address] [place] [phone] Shorty Marks MD [address] [place] [address] documented as of this encounter Visit Diagnoses Not on filedocumented in this encounter Additional Health Concerns Infection Onset Date Last Indicated Resolved Time COVID-19 Rule Out 08/27/2021 08/27/2021 08/27/2021 7:09 PM CDT documented as of this encounter Care Teams Shell Coremaker Relationship Specialty Start Date End Date Ilan Pearson MD [address] [place] [address] PCP - General FAMILY PRACTICE 03/24/17 08/05/23 Jose Decker MD [address] [place] [address] [place] Mamma Logist CARDIOVASCULAR DISEASE 03/24/17 05/01/22 documented as of this encounter
--- OUTSIDE RECORDS SUMMARY | 2024-02-27 10:44 | XMS_ITS | Encounter Summary ---
Author Organization [facility] Address [address] [place] [address]. [place] [address] [place] [address] Care Team Providers Care Herb Grower Name Role Phone Ilan Pearson MD Primary Care Provider [phone] Jose Decker MD Unavailable Unavailab le Encounter Details Date Type Department Care Team (Latest Contact Info) Description 04/17/2020 Travel Social History Tobacco Use Types Packs/Day [...] COVID-19? No / Unsure 04/17/2020 11:04 AM MANAGER CATEGORY documented as of this encounter Plan of Treatment Upcoming Encounters Date Type Department Care Team (Late st Contact Info) Description 08/02/2024 10:00 AM CDT Appointment [facility] [address] [place] [address] Shorty Marks MD [address] [place], [place] [phone] 08/02/2024 11:15 AM CDT Office Visit [facility] [address] [place] [phone] Shorty Marks MD [address] [place] [address] documented as of this encounter Visit Diagnoses Not on filedocumented in this encounter Care Teams Herb Grower Relationship Specialty Start Date End Date Ilan Pearson MD [address] [place] [address] PCP - General FAMILY PRACTICE 03/24/17 08/05/23 Jose Decker MD [address] [place] [address] [place] Computer Equipment Repairer CARDIOVASCULAR DISEASE 03/24/17 05/01/22 documented as of this encounter
--- OUTSIDE RECORDS SUMMARY | 2024-02-27 10:44 | XMS_ITS | Encounter Summary ---
Author Organization [facility] Address [address] [place] [address]. [place] [address] [place] [address] Care Team Providers Care Medical Support Specialist Name Role Phone Ilan Pearson MD Primary Care Provider [phone] Jose Decker MD Unavailable Unavailab le Encounter Details Date Type Department Care Team (Late st Contact Info) Description 08/27/[address] [facility] [address] [place] [address] Ilya Terrell MD [address] [address] [place], [place] [address] Social History Tobacco Use Types Packs/Day Years [...] CDT Appointment [facility] [address] [place] [address] Shorty Marks MD [address] [place] [address] 08/02/2024 11:15 AM CDT Office Visit [facility] [address] [place] [address] [place] [address] Shorty Marks MD [address] [place] [address] documented as of this encounter Results * PRE-SURGICAL/PRE-PROCEDURE CORONAVIRUS (COVID 19) (08/27/2021 10:59 AM CDT) SPEC DESCRIPTION NASAL 08/28/19 10:52 AM CDT [facility] CORONAVIRUS SARS COV 2 PCR (RESP) NEGATIVE NEGATIVE 08/27/2021 7:08 PM CDT [facility] Comment: THE SARS-CoV-2 TEST HAS BEEN AUTHORIZED BY THE FDA UNDER AN EUA FOR USE BY AUTHORIZED LABORATORIES. PERFORMED BY NUCLEIC ACID AMPLIFICATION PCR FIRST TEST NO 08/27/2021 10:52 AM CDT [facility] EMPLOYED IN HEALTHCARE NO 08/27/2021 10:52 AM CDT [facility] SYMPTOMATIC DEFINED BY CDC NO 08/27/2021 10:52 AM CDT [facility] HOSPITALIZATION STATUS NO 08/27/2021 10:52 AM CDT [facility] PATIENT IN ICU NO 08/27/2021 10:52 AM CDT [facility] RESIDENT OF [facility] NO 08/27/2021 10:52 AM CDT [facility] NASAL STRUCTURE / Unknown 08/27/2021 10:59 AM CDT Ilya Terrell MD MICROBIOLOGY - GENERAL ORDERABLE S Final Result [facility] [address] [place] [address], [place] [phone] [facility] [address] [place], [place] [address] [phone] documented in this encounter Visit Diagnoses Diagnosis Encounter for screening for COVID-19- Primary documented in this encounter Additional Health Concerns Infection Onset Date Last Indicated Resolved Time COVID-19 Rule Out 08/27/2021 08/27/2021 08/27/2021 7:09 PM CDT documented as of this encounter Care Teams Medical Support Specialist Relationship Specialty Start Date End Date Ilan Pearson MD [address] [place] [address] PCP - General FAMILY PRACTICE 03/24/17 08/05/23 Jose Decker MD [address] [place] [address] [place] Abrasives Sales Representative CARDIOVASCULAR DISEASE 03/24/17 05/01/22 documented as of this encounter
--- OUTSIDE RECORDS SUMMARY | 2024-02-27 10:44 | XMS_ITS | Encounter Summary ---
Author Organization [facility] Address [address] [place] [address]. [place] [address] [place] [address] Care Team Providers Care Aquarium Tank Attendant Name Role Phone Ilan Pearson MD Primary Care Provider [phone] Jose Decker MD Unavailable Unavailab le Encounter Details Date Type Department Care Team (Latest Contact Info) Description 06/30/2020 11:43 AM CDT - 06/30/2020 11:59 PM CDT Hospital Encounter [facility] [address] [place] [address] Ilan Pearson MD [address] [place] [address] Discharge Disposition: Home or Self Care (Routine [...] Info) Description 08/02/2024 10:00 AM CDT Appointment [facility] [address] [place] [address] [place] [address] Shorty Marks MD [address] [place] [address] 08/02/2024 11:15 AM CDT Office Visit [facility] [facility] [address] [facility] [place] [address] Shorty Marks MD [address] [place], [place] [phone] documented as of this encounter Procedures Procedure Name Priority Date/Time Associated Diagnosis Comments CORONAVIRUS (COVID 19) Routine 06/30/2020 11:50 AM CDT Preop examination documented in this encounter Results * PRE-SURGICAL/PRE-PROCEDURE CORONAVIRUS (COVID 19) (06/30/2020 11:50 AM CDT) SPEC DESCRIPTION NASOPHARYNGEAL SWAB 06/30/2020 11:50 AM CDT [facility] CORONAVIRUS SARS COV 2 PCR (RESP) NEGATIVE NEGATIVE 07/02/2020 7:56 PM CDT [facility] Comment: THE SARS-CoV-2 TEST HAS BEEN AUTHORIZED BY THE FDA UNDER AN EUA FOR USE BY AUTHORIZED LABORATORIES. PERFORMED BY NUCLEIC ACID AMPLIFICATION PCR FIRST TEST NO 06/30/2020 11:50 AM CDT [facility] EMPLOYED IN HEALTHCARE NO 06/30/2020 11:50 AM CDT [facility] SYMPTOMATIC DEFINED BY CDC NO 06/30/2020 11:50 AM CDT [facility] HOSPITALIZATION STATUS NO 06/30/2020 11:50 AM CDT [facility] PATIENT IN ICU NO 06/30/2020 11:50 AM CDT [facility] RESIDENT OF [facility] NO 06/30/2020 11:50 AM CDT [facility] NASOPHARYNGEAL SWAB / Unknown 06/30/2020 11:50 AM CDT us Ilan Pearson MD MICROBIOLOGY - GENERAL ORDERA BLES Final Result Performing Organization Address City/State/[facility] Co de Phone Number [facility] [address] [place] [address], [facility] [address] [place] [address], documented in this encounter Visit Diagnoses Diagnosis Preop examination Preoperative examination, unspecified documented in this encounter Additional Health Concerns Infection Onset Date Last Indicated Resolved Time COVID-19 Rule Out 06/30/2020 06/30/2020 07/02/2020 7:56 PM CDT documented as of this encounter Care Teams Aquarium Tank Attendant Relationship Specialty Start Date End Date Ilan Pearson MD [address] [place] [address] PCP - General FAMILY PRACTICE 03/24/17 08/05/23 Jose Decker MD [address] [place] [address] [place] Record Changer CARDIOVASCULAR DISEASE 03/24/17 05/01/22 documented as of this encounter
--- OUTSIDE RECORDS SUMMARY | 2024-02-27 10:44 | XMS_ITS | Encounter Summary ---
Author Organization [facility] Address [address] [place] [address]. [place] [address] [place] [address] Care Team Providers Care Distribution Spec Name Role Phone Ilan Pearson MD Primary Care Provider Jose Decker MD Unavailable Unavailab le Encounter Details Date Type Department Care Team (Latest Contact Info) Description 05/17/2020 Travel Social History Tobacco Use Types Packs/Day [...] have Coronavirus / COVID-19? No / Unsure 05/17/2020 1:27 PM CDT documented as of this encounter Plan of Treatment Upcoming Encounters Date Type Department Care Team (Late st Contact Info) Description 08/02/2024 10:00 AM CDT Appointment [facility] [address] [place] [address] Shorty Marks MD [address] [place], [place] [address] 08/02/2024 11:15 AM CDT Office Visit [facility] [address] [place] [address] Shorty Marks MD [address] [place] [address] documented as of this encounter Visit Diagnoses Not on filedocumented in this encounter Care Teams Distribution Spec Relationship Specialty Start Date End Date Ilan Pearson MD [address] [place] [address] PCP - General FAMILY PRACTICE 03/24/17 08/05/23 Jose Decker MD [address] [place] [address] [place] Rubber Goods Assembler CARDIOVASCULAR DISEASE 03/24/17 05/01/22 documented as of this encounter
--- OUTSIDE RECORDS SUMMARY | 2024-02-27 10:44 | XMS_ITS | Encounter Summary ---
Author Organization [facility] Address [address] [place] [address]. [place] [address] [place] [address] Care Team Providers Care Plodding Machine Operator Name Role Phone Ilan Pearson MD Primary Care Provider [phone] Jose Decker MD Unavailable Unavailab le Encounter Details Date Type Department Care Team (Latest Contact Info) Description 05/09/2020 12:57 PM CDT - 05/09/2020 11:59 PM CDT Hospital Encounter [facility] [address] [place] [address] [place] [address] [address] [address] Discharge Disposition: Home or Self Care (Routine [...] Info) Description 08/02/2024 10:00 AM CDT Appointment [facility] [address] [place] [address] [place] [address] Shorty Marks MD [address] [place], [place] [phone] 08/02/2024 11:15 AM CDT Office Visit [facility] [place] [address] Shorty Marks MD [address] [place], [place] [phone] documented as of this encounter Procedures Procedure Name Priority Date/Time Associated Diagnosis Comments HC URINALYSIS AUTO W/MICRO Routine 05/09/2020 1:20 PM CDT Retention of urine, unspecified Neurogenic dysfunction of the urinary bladder UTI (urinary tract infection) URINE BACTERIA CULTURE Routine 05/09/2020 1:20 PM CDT Retention of urine, unspecified Neurogenic dysfunction of the urinary bladder UTI (urinary tract infection) documented in this encounter Results * CULTURE URINE (05/09/2020 1:20 PM CDT) SPEC DESCRIPTION URINE STRAIGHT CATH 05/09/2020 1:23 PM CDT [facility] SPECIAL REQUESTS NO SPECIAL REQUEST 05/09/2020 1:23 PM CDT [facility] CULTURE RESULT >100,000 CFU/mL STAPHYLOCOCCU S, COAGULASE NEGATIVE 05/11/2020 1:14 PM CDT [facility] URINE SPECIMEN OBTAINED BY SINGLE CATHETERIZATION [...] MICROBIOLOGY - GENERAL O RDERABLES Final Result [facility] [address] [place] [address], [place] [phone] [id number] [facility] [address] [place] [address], * (ABNORMAL) URINALYSIS (05/09/2020 1:20 PM CDT) COLOR (U) YELLOW 05/09/2020 1:35 PM CDT [facility] TRANSPARENCY CLEAR 05/09/2020 1:35 PM CDT [facility] SPECIFIC GRAVITY (U) 1.015 1.000 - 1.025 05/09/2020 1:35 PM CDT [facility] U PH 6.5 5.0 - 8.0 05/09/2020 1:35 PM CDT [facility] LEUKOCYTES (U) TRACE(A) NEGATIVE 05/09/2020 1:35 PM CDT [facility] NITRITES NEGATIVE NEGATIVE 05/09/2020 1:35 PM CDT [facility] PROTEIN (U) NEGATIVE NEGATIVE 05/09/2020 1:35 PM CDT [facility] URINE GLUCOSE NEGATIVE NEGATIVE 05/09/2020 1:35 PM CDT [facility] KETONES MG/DL (U) NEGATIVE NEGATIVE 05/09/2020 1:35 PM CDT [facility] UROBILINOGEN 0.2 <1.0 EU/DL 05/09/2020 1:35 PM CDT [facility] BILIRUBIN (U) NEGATIVE NEGATIVE 05/09/2020 1:35 PM CDT [facility] BLOOD (U) 2+(A) NEGATIVE 05/09/2020 1:35 PM CDT [facility] WBC/HPF 0-5 0 - 5 /HPF 05/09/2020 1:35 PM CDT [facility] RBC/HPF 5-10(A) 0 - 5 /HPF 05/09/2020 1:35 PM CDT [facility] EPI/HPF OCCASIONAL /LPF 05/09/2020 1:35 PM CDT [facility] BACTERIA (U) TRACE /HPF 05/09/2020 1:35 PM CDT [facility] URINE, STRAIGHT CATH 05/09/2020 1:20 PM CDT us Jessie Hidalgo III, MD URINE ORDERABLES Final R esult [facility] [address] [place] [address], documented in this encounter Visit Diagnoses Diagnosis Retention of urine, unspecified Neurogenic dysfunction of the urinary bladder Neurogenic bladder, NOS UTI (urinary tract infection) Urinary tract infection, site not specified documented in this encounter Care Teams Plodding Machine Operator Relationship Specialty Start Date End Date Ilan Pearson MD [address] [place], [place] [id number] PCP - General FAMILY PRACTICE 03/24/17 08/05/23 Jose Decker MD [address] [place] [address] [place] Maintenance Technician 2Nd Shift CARDIOVASCULAR DISEASE 03/24/17 05/01/22 documented as of this encounter
--- OUTSIDE RECORDS SUMMARY | 2024-02-27 10:44 | XMS_ITS | Encounter Summary ---
Author Organization [facility] Address [address] [place] [address]. [place] [address] [place] [address] Care Team Providers Care Stations Superintendent Name Role Phone Ilan Pearson MD Primary Care Provider [phone] Jose Decker MD Unavailable Unavailab le Reason for Referral * Imaging (Routine) - Closed Specialty Diagnoses / Procedures Referred By Alton fermin Referred To Contact RADIOLOGY Diagnoses Neurogenic dysfunction of the urinary bladder Retention of urine UTI (urinary tract infection) Procedures US RETROPERITONEAL COMP Jessie Hidalgo III, MD Phone: tel: fax: Referral ID Status Reason Start Date Expiration Date Visits Re quested Visits Authorized [id number] Closed 05/08/2020 06/08/2021 1 1 Reason for Visit * Imaging (Routine) - Closed Specialty Diagnoses / Procedures Referred By Alton fermin Referred To Contact RADIOLOGY Diagnoses Neurogenic dysfunction of the urinary bladder Retention of urine UTI (urinary tract infection) Procedures US RETROPERITONEAL COMP Jessie Hidalgo III, MD Phone: tel: fax: Referral ID Status Reason Start Date Expiration Date Visits Re quested Visits Authorized [id number] Closed 05/08/2020 06/08/2021 1 1 Encounter Details Date Type Department Care Team (Latest Contact Info) Description 05/17/2020 1:29 PM CDT - 05/17/2020 11:59 PM CDT Hospital Encounter [facility] [address] [address] [place] [address] [place] [address] Discharge Disposition: Home or Self Care [...] Info) Description 08/02/2024 10:00 AM CDT Appointment [facility] [address] [place] [address] Shorty Marks MD [address] [place] [address] 08/02/2024 11:15 AM CDT Office Visit [facility] [address] [place] [address] Shorty Marks MD [address] [place] [address] documented as of this encounter Procedures Procedure Name Priority Date/Time Associated Diagnosis Comments US RETROPERITONEAL COMP Routine 05/18/19 2:00 PM CDT Neurogenic dysfunction of the urinary bladder Retention of urine UTI (urinary tract infection) documented in this encounter Results * US RETROPERITONEAL COMP (05/17/2020 2:00 PM CDT) Anatomical Region Laterality Modality Abdomen Ultrasound 05/17/2020 3:38 PM CDT Impressions 05/17/2020 3:42 PM CDT IMPRESSION: 1. Normal-appearing right kidney. 2. 8 mm nonobstructing calcification noted in the midpole the left kidney. This is not apparent on the previous study. No hydronephrosis. 3. Bladder suboptimally distended. Possibly some mild bladder wall thickening. Referred By: JESSIE HIDALGO III Interpreted By: Parish Holt MD, 05/17/2020 3:38 PM Narrative 05/17/2020 3:42 PM CDT ULTRASOUND KIDNEYS AND BLADDER HISTORY neurogenic bladder: ? COMPARISON: 04/17/2020 TECHNIQUE: An ultrasound examination of the kidneys and bladder was performed to assess grayscale and color-flow characteristics. FINDINGS: Right kidney: 10.4 x 4.3 x 4.5 cm. ??Normal echogenicity. Color flow is observed. ??No mass, cyst or stone. No hydronephrosis. Left kidney: 12.3 x 5.6 x 5.3 cm . Normal echogenicity. Color flow is observed. No mass or hydronephrosis. 8mm echogenic focus in the midpole consistent with calculus. Urinary bladder: Bladder is suboptimally distended. Possibly some mild bladder wall thickening. No bladder mass or calculi. Bilateral bladder-urine jets observed. Procedure Note Parish Holt MD - 05/17/2020 ULTRASOUND KIDNEYS AND BLADDER HISTORY neurogenic bladder: COMPARISON: 04/17/2020 TECHNIQUE: An ultrasound examination of the kidneys and bladder was performed to assess grayscale and color-flow characteristics. FINDINGS: Right kidney: 10.4 x 4.3 x 4.5 cm. Normal echogenicity. Color flow is observed. No mass, cyst or stone. No hydronephrosis. Left kidney: 12.3 x 5.6 x 5.3 cm . Normal echogenicity. Color flow is observed. No mass or hydronephrosis. 8mm echogenic focus in the midpole consistent with calculus. Urinary bladder: Bladder is suboptimally distended. Possibly some mild bladder wall thickening. No bladder mass or calculi. Bilateral bladder-urine jets observed. IMPRESSION: 1. Normal-appearing right kidney. 2. 8 mm nonobstructing calcification noted in the midpole the leftkidney. This is not apparent on the previous study. No hydronephrosis. 3. Bladder suboptimally distended. Possibly some mild bladder wall thickening. Referred By: JESSIE HIDALGO III Interpreted By: Parish Holt MD, 05/17/2020 3:38 PM us Jessie Hidalgo III, MD ULTRASOUND Final Re sult documented in this encounter Visit Diagnoses Diagnosis Neurogenic dysfunction of the urinary bladder Neurogenic bladder, NOS Retention of urine Retention of urine, unspecified UTI (urinary tract infection) Urinary tract infection, site not specified documented in this encounter Care Teams Stations Superintendent Relationship Specialty Start Date End Date Ilan Pearson MD [address] [place] [address] PCP - General FAMILY PRACTICE 03/24/17 08/05/23 Jose Decker MD [address] [place] [address] [place] Plant Facilities Technician CARDIOVASCULAR DISEASE 03/24/17 05/01/22 documented as of this encounter
--- OUTSIDE RECORDS SUMMARY | 2024-02-27 10:44 | XMS_ITS | Encounter Summary ---
Author Organization [facility] Address [address] [place] [address]. [place] [address] [place] [address] Care Team Providers Care Fur Machine Operator Name Role Phone Ilan Pearson MD Primary Care Provider [phone] Jose Decker MD Unavailable Unavailab le Encounter Details Date Type Department Care Team (Latest Contact Info) Description 08/27/2021 10:40 AM CDT - 08/27/2021 11:59 PM CDT Hospital Encounter [facility] [address] [facility] [place] [address] Ilya Terrell MD [address] [address] [place] [address] Discharge Disposition: Home or Self Care (Routine [...] FLUoxetine (PROZAC) 10 MG capsule 08/06/2021 08/05/2022 meloxicam 15 MG tablet Take 15 mg by mouth daily. 02/04/2022 ondansetron (ZOFRAN) 8 MG tablet Take 1 [...] Info) Description 08/02/2024 10:00 AM CDT Appointment [address] [place] [address] Shorty Marks MD [address] [place] [phone] 08/02/2024 11:15 AM CDT Office Visit [facility] [address] [place] [address] Shorty Marks MD [address] [place], [place] [phone] documented as of this encounter Procedures Procedure Name Priority Date/Time Associated Diagnosis Comments CORONAVIRUS (COVID 19) Routine 08/27/2021 10:59 AM CDT Encounter for screening for COVID-19 documented in this encounter Results * PRE-SURGICAL/PRE-PROCEDURE CORONAVIRUS (COVID 19) (08/27/2021 10:59 AM CDT) SPEC DESCRIPTION NASAL 08/28/19 10:52 AM CDT [facility] CORONAVIRUS SARS COV 2 PCR (RESP) NEGATIVE NEGATIVE 08/27/2021 7:08 PM CDT [facility] Comment: THE SARS-CoV-2 TEST HAS BEEN AUTHORIZED BY THE FDA UNDER AN EUA FOR USE BY AUTHORIZED LABORATORIES. PERFORMED BY NUCLEIC ACID AMPLIFICATION PCR FIRST TEST NO 08/27/2021 10:52 AM CDT [facility] EMPLOYED IN HEALTHCARE NO 08/27/2021 10:52 AM CDT [facility] SYMPTOMATIC DEFINED BY CDC NO 08/27/2021 10:52 AM CDT [facility] HOSPITALIZATION STATUS NO 08/27/2021 10:52 AM CDT [facility] PATIENT IN ICU NO 08/27/2021 10:52 AM CDT [facility] RESIDENT OF [facility] NO 08/27/2021 10:52 AM CDT [facility] NASAL STRUCTURE / Unknown 08/27/2021 10:59 AM CDT us Ilya Terrell MD MICROBIOLOGY - GENERAL ORDERABLE S Final Result [facility] [address] [place] [address], [facility] [address] [place] [id number], documented in this encounter Visit Diagnoses Diagnosis Encounter for screening for COVID-19 documented in this encounter Additional Health Concerns Infection Onset Date Last Indicated Resolved Time COVID-19 Rule Out 08/27/2021 08/27/2021 08/27/2021 7:09 PM CDT documented as of this encounter Care Teams Fur Machine Operator Relationship Specialty Start Date End Date Ilan Pearson MD [address] [place] [address] PCP - General FAMILY PRACTICE 03/24/17 08/05/23 Jose Decker MD [address] [place] [address] [place] Urogynaecologist CARDIOVASCULAR DISEASE 03/24/17 05/01/22 documented as of this encounter
--- OUTSIDE RECORDS SUMMARY | 2024-02-27 10:45 | XMS_ITS | Encounter Summary ---
Author Organization [facility] Address [address] [place] [address]. [place] [address] [place] [address] Care Team Providers Care Medical Delivery Driver Name Role Phone Ilan Pearson MD Primary Care Provider [phone] Jose Decker MD Unavailable Unavailab le Encounter Details Date Type Department Care Team (Latest Contact Info) Description 04/06/2020 12:35 PM DIRECTOR INFORMATION SECURITY - 04/06/2020 11:59 PM DIRECTOR INFORMATION SECURITY Hospital Encounter [facility] [address] [facility] [place] [address] [place] [address] [address] [address] Discharge Disposition: Home or Self [...] have Coronavirus / COVID-19? No / Unsure 04/06/2020 12:36 PM DIRECTOR INFORMATION SECURITY documented as of this encounter Medications at [...] Info) Description 08/02/2024 10:00 AM CDT Appointment [facility] [address] [facility] [place] [address] Shorty Marks MD [address] [place], [place] [phone] 08/02/2024 11:15 AM CDT Office Visit [facility] [place] [address] Shorty Marks MD [address] [place], [place] [phone] documented as of this encounter Procedures Procedure Name Priority Date/Time Associated Diagnosis Comments PROSTATE SPECIFIC ANTIGEN,SCREENING Routine 04/06/2020 12:46 PM DIRECTOR INFORMATION SECURITY Screening for prostate cancer documented in this encounter Results * (ABNORMAL) PROSTATE SPECIFIC ANTIGEN,SCREENING (04/06/2020 12:46 PM DIRECTOR INFORMATION SECURITY) PSA 4.68(H) <4.00 NG/ML 04/06/2020 1:21 PM DIRECTOR INFORMATION SECURITY [facility] 04/06/2020 12:4 6 PM DIRECTOR INFORMATION SECURITY us Jessie Hidalgo III, MD LABORATORY Final Re sult [facility] [address] [place] [address], documented in this encounter Visit Diagnoses Diagnosis Screening for prostate cancer Special screening for malignant neoplasm of prostate documented in this encounter Care Teams Medical Delivery Driver Relationship Specialty Start Date End Date Ilan Pearson MD [address] [place] [address] PCP - General FAMILY PRACTICE 03/24/17 08/05/23 Jose Decker MD [address] [place] [address] [place] Check Examiner CARDIOVASCULAR DISEASE 03/24/17 05/01/22 documented as of this encounter
--- OUTSIDE RECORDS SUMMARY | 2024-02-27 10:45 | XMS_ITS | Encounter Summary ---
Author Organization [facility] Address [address] [place] [address]. [place] [address] [place] [address] Care Team Providers Care Sheet Taker Name Role Phone Barak Mckeon MD Primary Care Provider [phone] Jose Decker MD Unavailable Unavailab le Reason for Visit * Reason Comments Follow Up Encounter Details Date Type Department Care Team (Late st Contact Info) Description 09/28/2017 2:40 PM CDT Office Visit [facility] AT [address] [place] [phone] Jose Decker MD Follow Up Social History Tobacco Use Types [...] Sign Reading Time Taken Comments Blood Pressure 135/78 09/28/2017 3:03 PM CDT Pulse 78 09/28/2017 3:03 PM CDT Temperature - - Respiratory Rate 18 09/28/2017 3:03 PM CDT Oxygen Saturation 99% 09/28/2017 3:03 PM CDT Inhaled Oxygen Concentration - - Weight 92.1 kg (203 lb) 09/28/2017 3:03 PM CDT Height 182.9 cm (6') 09/28/2017 3:03 PM CDT Body Mass Index 27.53 09/28/2017 3:03 PM CDT documented in this encounter Progress Notes * Jose Decker MD - 09/28/2017 2:40 PM CDT Reason for Visit: Follow Up Impression: ??1. Intermittent Palpitations with holter documented sinus tachycardia, likely secondary to increased caffeine intake. Event monitor was benign. ??2. Recent normal stress test Recommendations and Plan: ??1. Mr. Tyler continues to do well without angina or HF related symptoms. Given his palpitations,We had started him on Toprol XL 25mg/d. However, he stopped taking this due to headache. Event monitoring results was benign. He still has 1-2 episodes a month. He admits to drinking atleast 1 gallonof iced tea a day. I have asked him??to substantially decrease his caffeine intake. He prefers not to try cardizem for now. ?2. Low salt Low cholesterol diet and regular exercise encouraged. ?3. LDL goal <100 with non-HDL goal of <130. Please titrate statin therapy to achieve these goals. ?4. Follow up as needed. History of Present Illness: Previously seen for evaluation of tachycardia. Remains active. Reports continued intermittent palpitations. Recent holter showed HR up to 150. Recent stress test showed EKG changes but no ischemia or infarct was seen. Event monitoring was benign. He stopped taking toprol XL due to [place]. He reports 2-3 episodes of palpitations since last visit. Denies any CP/SOB/LH/Dizziness/Pre-syncope/Syncope. No orthopnea, PND, LE edema. No claudication. ROS neg. Medications: Current Outpatient Prescriptions: ??? albuterol sulfate HFA (PROAIR HFA) 108 (90 BASE) MCG/ACT inhaler, Inhale 2 puffs into the lungsevery 4 (four) hours as needed for Wheezing., Disp: , Rfl: ??? meloxicam 15 MG tablet, Take 15 mg by mouth daily., Disp: , Rfl: ??? oxyCODONE-acetaminophen 5-325 MG tablet, Take 2 tablets by mouth every 8 (eight) hours as needed for Pain., Disp: , Rfl: ??? ranitidine 150 MG tablet, Take 150 mg by mouth 2 (two) times daily., Disp: , Rfl: Allergies Allergen Reactions ??? Gabapentin Unknown Past Medical History: Diagnosis Date ??? Taylor's esophagus ??? Esophageal reflux ??? GERD (gastroesophageal reflux disease) ??? Mild hyperlipidemia ??? Palpitations Past Surgical History: Procedure Laterality Date ??? ANESTH,NECK VESSEL SURGERY NOS Disc ??? CARPAL TUNNEL RELEASE Bilateral Social History Social History ??? Marital status: Spouse name: N/A ??? Number of children: N/A ??? Years of education: N/A Social History Main Topics ??? Smoking status: Former Smoker ??? Smokeless tobacco: Not on file ??? Alcohol use Yes ??? Drug use: No ??? Sexual activity: Not on file Other Topics Concern ??? Exercise No ??? Special Diet No ??? Caffeine Concern No Social History Narrative Family History Problem Relation Age of Onset ??? Coronary artery disease Mother ??? Heart Attack Mother ??? Open Heart Mother ??? Open Heart Brother ??? Heart Attack Brother Family Status Relation Status ??? Mother ??? Brother Review of Systems Constitutional: Negative for recent unintentional weight gain, recent unintentional weight loss andnew or significant fatigue. HENT: Negative for new or significant hearing loss. Eyes: Negative for blurred vision and double vision. Respiratory: Negative for cough, new or significant shortness of breath and snoring. Cardiovascular: See HPI Gastrointestinal: Negative for blood in stool and melena. Genitourinary: Negative for dysuria. Musculoskeletal: Positive for joint stiffness/pain. Negative for myalgias. Skin: Negative for rash. Neurological: Positive for tingling/numbness. Negative for focal weakness. Endo/Heme/Allergies: Negative for new or significant bruising/bleeding and polydipsia. Psychiatric/Behavioral: Negative for depression and new or significant memory loss. Filed Vitals: 09/28/17 1503 BP: 135/78 Pulse: 78 Resp: 18 SpO2: 99% Weight: 92.1 kg (203 lb) Height: 6' (1.829 m) Physical Exam Constitutional: He is oriented to person, place, and time. He appears well- developed and well-nourished. No distress. HENT: Nose: No mucosal edema. Mouth/Throat: Oropharynx is clear and moist and mucous membranes are normal. No oropharyngeal exudate. Neck: Neck supple. No JVD present. Cardiovascular: Normal rate, regular rhythm, S1 normal, S2 normal and intact distal pulses. PMI is not displaced. Exam reveals no gallop. No murmur heard. Pulmonary/Chest: Effort normal and breath sounds normal. No respiratory distress. Abdominal: Normal appearance. He exhibits no abdominal bruit and no mass. There is no hepatosplenomegaly. There is no tenderness. Musculoskeletal: Normal range of motion. He exhibits no deformity. Neurological: He is alert and oriented to person, place, and time. Skin: Skin is warm and dry. Psychiatric: He has a normal mood and affect. His behavior is normal. Thought content normal. Nursing note and vitals reviewed. Diagnoses/Impression: 1. Palpitations Referring Provider: Barak Mckeon PCP: BARAK MCKEON MD documented in this encounter Plan of Treatment Upcoming Encounters Date Type Department Care Team (Late st Contact Info) Description 08/02/2024 10:00 AM CDT Appointment [facility] [address] [facility] [place] [address] Shorty Marks MD [address] [place] [address] 08/02/2024 11:15 AM CDT Office Visit [facility] [address] [facility] [place] [address] Shorty Marks MD [address] [place] [address] documented as of this encounter Visit Diagnoses Diagnosis Palpitations- Primary documented in this encounter Care Teams Sheet Taker Relationship Specialty Start Date End Date Barak Mckeon MD [address] [place] [address] PCP - General FAMILY PRACTICE 03/24/17 08/05/23 Jose Decker MD [address] [place] [address] [place] Clinical Trial Specialist CARDIOVASCULAR DISEASE 03/24/17 05/01/22 documented as of this encounter
--- OUTSIDE RECORDS SUMMARY | 2024-02-27 10:45 | XMS_ITS | Encounter Summary ---
Author Organization [facility] Address [address] [place] [address]. [place] [address] [place] [address] Care Team Providers Care Reinforced Steel Placing Supervisor Name Role Phone Ilan Pearson MD Primary Care Provider [phone] Jose Decker MD Unavailable Unavailab le Encounter Details Date Type Department Care Team (Late st Contact Info) Description 04/06/[address] [facility] [address] [place] [address] [place] [address] [place] [address] Social History Tobacco Use Types Packs/Day [...] COVID-19? No / Unsure 04/06/2020 12:36 PM CAR SALES CONSULTANT documented as of this encounter Plan of Treatment Upcoming Encounters Date Type Department Care Team (Late st Contact Info) Description 08/02/2024 10:[address] [facility] [address] [place] [address] Shorty Marks MD [address] [place] [address] 08/02/2024 11:15 AM CDT Office Visit [facility] [place] [address] Shorty Marks MD [address] [place] [address] documented as of this encounter Results * (ABNORMAL) PROSTATE SPECIFIC ANTIGEN,SCREENING (04/06/2020 12:46 PM CAR SALES CONSULTANT) PSA 4.68(H) <4.00 NG/ML 04/06/2020 1:21 PM CAR SALES CONSULTANT [facility] 04/06/2020 12:4 6 PM CAR SALES CONSULTANT us Jessie Hidalgo III, MD LABORATORY Final Re sult [facility] [address] [place] [address] [phone] documented in this encounter Visit Diagnoses Diagnosis Screening for prostate cancer- Primary Special screening for malignant neoplasm of prostate documented in this encounter Care Teams Reinforced Steel Placing Supervisor Relationship Specialty Start Date End Date Ilan Pearson MD [address] [place] [address] PCP - General FAMILY PRACTICE 03/24/17 08/05/23 Jose Decker MD [address] [place] [address] [place] President Consumer Electronics Company CARDIOVASCULAR DISEASE 03/24/17 05/01/22 documented as of this encounter
--- OUTSIDE RECORDS SUMMARY | 2024-02-27 10:45 | XMS_ITS | Encounter Summary ---
Author Organization [facility] Address [address] [place] [address]. [place] [address] [place] [address] Care Team Providers Care Supervisor Travel Information Center Name Role Phone Ilan Pearson MD Primary Care Provider [phone] Jose Decker MD Unavailable Unavailab le Encounter Details Date Type Department Care Team (Late Contact Info) Description 03/23/2009 Abstract [facility] [address] [place] [address] Jerrell Gomez MD [address] [place] [address] Social History Tobacco Use Types Packs/Day Years Used Date Smoking Tobacco: Never Assessed Sex and Gender Information Value Date Recorded Sex Assigned at Not on file Legal Sex Male 6:15 PM CDT Gender Identity Not on file Sexual Orientation Not on file documented as of this encounter Plan of Treatment Upcoming Encounters Date Type Department Care Team (Late Contact Info) Description 08/02/2024 10:00 AM CDT Appointment [facility] [address] [place] [address] Shorty Marks MD [address] [place], [place] [address] 08/02/2024 11:15 AM CDT [facility] [address] [facility] [place] [address] Shorty Marks MD [address] [place] [address] documented as of this encounter Visit Diagnoses Diagnosis Open wound of face Open wound of face, unspecified site, without mention of complication documented in this encounter Care Teams Supervisor Travel Information Center Relationship Specialty Start Date End Date Ilan Pearson MD [address] [place] [address] PCP - General FAMILY PRACTICE 03/24/17 08/05/23 Jose Decker MD [address] [place] [address] [place] Bindery Production Manager CARDIOVASCULAR DISEASE 03/24/17 05/01/22 documented as of this encounter
--- OUTSIDE RECORDS SUMMARY | 2024-02-27 10:45 | XMS_ITS | Encounter Summary ---
Author Organization [facility] Address [address] [place] [address]. [place] [address] [place] [address] Care Team Providers Care Sock Knitter Name Role Phone Ilan Pearson MD Primary Care Provider [phone] Jose Decker MD Unavailable Unavailab le Encounter Details Date Type Department Care Team (Late st Contact Info) Description 03/25/2017 Scan [facility] [address] [place] [address] Scanned, Documents Social History Tobacco Use Types Packs/Day Years [...] Appointment [facility] [address] [place] [address] Shorty Marks MD [address] [place], [place] [address] 08/02/2024 11:15 AM CDT [facility] [address] [place] [address] Shorty Marks MD [address] [place], [place] [address] documented as of this encounter Visit Diagnoses Not on filedocumented in this encounter Care Teams Sock Knitter Relationship Specialty Start Date End Date Ilan Pearson MD [address] [place] [address] PCP - General FAMILY PRACTICE 03/24/17 08/05/23 Jose Decker MD [address] [place] [address] [place] Latrine Cleaner CARDIOVASCULAR DISEASE 03/24/17 05/01/22 documented as of this encounter
--- OUTSIDE RECORDS SUMMARY | 2024-02-27 10:45 | XMS_ITS | Encounter Summary ---
Author Organization [facility] Address [address] [place] [address]. [place] [address] [place] [address] Care Team Providers Care Online Advertising Manager Name Role Phone Ilan Pearson MD Primary Care Provider [phone] Jose Decker MD Unavailable Unavailab le Encounter Details Date Type Department Care Team (Latest Contact Info) Description 04/06/2020 Travel Social History Tobacco Use Types Packs/Day [...] COVID-19? No / Unsure 04/06/2020 12:36 PM TEXTILE SCREEN PRINTER documented as of this encounter Plan of Treatment Upcoming Encounters Date Type Department Care Team (Late st Contact Info) Description 08/02/2024 10:00 AM CDT Appointment [facility] [address] [place] [address] Shorty Marks MD [address] [place], [place] [address] 08/02/2024 11:15 AM CDT Office Visit [facility] [address] [place] [phone] Shorty Marks MD [address] [place] [address] documented as of this encounter Visit Diagnoses Not on filedocumented in this encounter Care Teams Online Advertising Manager Relationship Specialty Start Date End Date Ilan Pearson MD [address] [place] [address] PCP - General FAMILY PRACTICE 03/24/17 08/05/23 Jose Decker MD [address] [place] [address] [place] Redevelopment Manager CARDIOVASCULAR DISEASE 03/24/17 05/01/22 documented as of this encounter
--- OUTSIDE RECORDS SUMMARY | 2024-02-27 10:45 | XMS_ITS | Encounter Summary ---
Author Organization [facility] Address [address] [place] [address]. [place] [address] [place] [address] Care Team Providers Care Keno Terminal Operator Name Role Phone Ilan Pearson MD Primary Care Provider [phone] Jose Decker MD Unavailable Unavailab le Encounter Details Date Type Department Care Team (Latest Contact Info) Description 08/02/2019 11:59 AM CDT - 08/02/2019 11:59 PM CDT Hospital Encounter [facility] [address] [facility] [place] [address] [place] [address] [address] Discharge Disposition: Home or Self [...] have Coronavirus / COVID-19? No / Unsure 08/02/2019 11:59 AM CDT documented as of this encounter [...] Info) Description 08/02/2024 10:00 AM CDT Appointment [facility] [address] [place] [address] [place] [address] Shorty Marks MD [address] [place] [phone] 08/02/2024 11:15 AM CDT Office Visit [facility] [place] [address] Shorty Marks MD [address] [place], [place] [address] [phone] documented as of this encounter Procedures Procedure Name Priority Date/Time Associated Diagnosis Comments PROSTATE SPECIFIC ANTIGEN,TOTAL Routine 08/02/2019 12:13 PM CDT 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 BASIC METABOLIC PANEL Routine 08/02/2019 12:13 PM CDT 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 documented in this encounter Results * (ABNORMAL) PROSTATE SPECIFIC ANTIGEN, DIAG (08/02/2019 12:13 PM CDT) PSA 6.45(H) <4.00 NG/ML 08/02/2019 12:45 PM CDT [facility] 08/02/2019 12:1 3 PM CDT us Jessie Hiadlgo III, MD LABORATORY Final Re sult [facility] [address] [place] [address], * (ABNORMAL) BASIC METABOLIC PANEL (08/02/2019 12:13 PM CDT) SODIUM S/P/B 142 136 - 145 MMOL/L 08/02/2019 12:45 PM CDT [facility] POTASSIUM S/P/B 4.1 3.5 - 5.1 MMOL/L 08/02/2019 12:45 PM CDT [facility] CHLORIDE S/P/B 105 98 - 107 MMOL/L 08/02/2019 12:45 PM CDT [facility] CO2 28.5 21.0 - 32.0 MMOL/L 08/02/2019 12:45 PM CDT [facility] GLUCOSE 92 70 - 99 MG/DL 08/02/2019 12:45 PM CDT [facility] Comment: FASTING GLUCOSE 100 TO 125 MG/DL IS CONSISTENT WITH IMPAIRED FASTING GLUCOSE. FASTING GLUCOSE >125 MG/DL IS CONSISTENT WITH DIABETES. RANDOM GLUCOSE >200 MG/DL WITH HYPERGLYCEMIC SYMPTOMS IS CONSISTENT WITH DIABETES. PER ADA GUIDELINES BUN 13 6 - 24 MG/DL 08/02/2019 12:45 PM CDT [facility] CREATININE S/P/B 0.65(L) 0.70 - 1.30 MG/DL 08/02/2019 12:45 PM CDT [facility] CALCIUM S/P/B 9.7 8.4 - 10.5 MG/DL 08/02/2019 12:45 PM CDT [facility] ANION GAP 8.5 5.0 - 15.0 MMOL/L 08/02/2019 12:45 PM CDT [facility] OSMOLALITY (CALC) 294 MOSM/KG 020 12:45 PM CDT [facility] Comment:REFERENCE RANGE NOT ESTABLISHED EGFR NON-AFR. AMER. >90 >89 ML/MIN/1. 73 M2 08/02/2019 12:45 PM CDT [facility] EGFR AFR. AMER. >90 >89 ML/MIN/1. 73 M2 08/02/2019 12:45 PM CDT [facility] GFR NOTES GFR REFERENCE S: 08/02/2019 12:45 PM CDT [facility] Comment: THE ESTIMATED GFR IS [...] ml/min/1.73 m2 G5,KIDNEY FAILURE: <15 ml/min/1.73 m2 08/02/2019 12:1 3 PM CDT us Jessie Hidalgo III, MD LABORATORY Final Re sult [facility] [address] [place] [address], documented in this encounter Visit Diagnoses Diagnosis Neurogenic dysfunction of the urinary bladder Neurogenic bladder, NOS BPH with obstruction/lower urinary tract symptoms Hypertrophy of prostate with urinary obstruction and other lower urinary tract symptoms (LUTS) documented in this encounter Care Teams Keno Terminal Operator Relationship Specialty Start Date End Date Ilan Pearson MD [address] [place] [address] PCP - General FAMILY PRACTICE 03/24/17 08/05/23 Jose Decker MD [address] [place] [address] [place] Retail Custodial Associate CARDIOVASCULAR DISEASE 03/24/17 05/01/22 documented as of this encounter
--- OUTSIDE RECORDS SUMMARY | 2024-02-27 10:45 | XMS_ITS | Encounter Summary ---
Author Organization [facility] Address [address] [place] [address]. [place], [place] [address] [place] [address] Care Team Providers Care Cotton Inspector Name Role Phone Ilan Pearson MD Primary Care Provider [phone] Jose Decker MD Unavailable Unavailab le Reason for Visit * Reason Onset Date Comments Consult 03/24/2017 Encounter Details Date Type Department Care Team (Late st Contact Info) Description 03/24/2017 Telephone [facility] [address] [place] [address] Jose Decker MD Consult Social History Tobacco Use Types Packs/Day Years [...] as of this encounter Progress Notes * Reta Charles - 03/24/2017 12:[address] Patel's office called for consult - Tachy w/normal stress test and HM Scheduled 04/08 @ 11:20 in [place]. Sending letter and paperwork. Dr. Patel's office sending records. Holter monitor in [facility] NESS PROCESS MANAGER documented in this encounter Plan of Treatment Upcoming Encounters Date Type Department Care Team (Late st Contact Info) Description 08/02/2024 10:00 AM CDT Appointment [facility] [address] [place] [address] Shorty Marks MD [address] [place], [place] [address] 08/02/2024 11:15 AM CDT Office Visit [facility] [address] [place] [address] Shorty Marks MD [address] [place], [place] [address] documented as of this encounter Visit Diagnoses Not on filedocumented in this encounter Care Teams Cotton Inspector Relationship Specialty Start Date End Date Ilan Pearson MD [address] [place] [address] PCP - General FAMILY PRACTICE 03/24/17 08/05/23 Jose Decker MD [address] [place] [address] [place] Fruit Or Nut Grower CARDIOVASCULAR DISEASE 03/24/17 05/01/22 documented as of this encounter
--- OUTSIDE RECORDS SUMMARY | 2024-02-27 10:45 | XMS_ITS | Encounter Summary ---
Author Organization [facility] Address [address] [place] [address]. [place] [address] [place] [address] Care Team Providers Care Admissions Rn Name Role Phone Ilan Pearson MD Primary Care Provider [phone] Jose Decker MD Unavailable Unavailab Shorty Nice MD Unavailable Godfrey Lamb DPM Unavailable [phone] Thomas Meneses MD Primary Care Provider [phone] Encounter Details Date Type Department Care Team (Late st Contact Info) Description 03/24/2017 Abstract [facility] [address] [place] [address] Jose Decker MD Social History Tobacco Use Types Packs/Day Years [...] 08/02/2024 10:[address] [place] [address] Shorty Marks MD [address] [place] [address] 08/02/2024 11:15 AM CDT Office Visit [facility] [place] [address] Shorty Marks MD [address] [place] [address] documented as of this encounter Visit Diagnoses Not on filedocumented in this encounter Additional Health Concerns Infection Onset Date Last Indicated Resolved Time COVID-19 Rule Out 06/30/2020 06/30/2020 07/02/2020 7:56 PM CDT COVID-19 Rule Out 08/27/2021 08/27/2021 08/27/2021 7:09 PM CDT COVID-19 Rule Out 10/08/2021 10/08/2021 10/08/2021 9:12 PM CDT COVID-19 Confirmed 10/08/2021 10/08/2021 12:34 AM CDT COVID-19 Rule Out 03/15/2022 03/15/2022 03/17/2022 8:17 PM CENTER RECEPTIONIST documented as of this encounter Care Teams Admissions Rn Relationship Specialty Start Date End Date Ilan Pearson MD [address] [place] [address] PCP - General FAMILY PRACTICE 03/24/17 08/05/23 Thomas Meneses MD [address] [place] [address] PCP - General FAMILY PRACTICE 08/06/23 Jose Decker MD [address] [place] [address] [place] Bunch Maker Hand CARDIOVASCULAR DISEASE 03/24/17 05/01/22 Shorty Marks MD [address] [place] [address] Consulting Physician INTERNAL MEDICINE 05/02/22 Godfrey Lamb DPM [address] [place] [address] PODIATRY 06/13/22 documented as of this encounter
--- OUTSIDE RECORDS SUMMARY | 2024-02-27 10:45 | XMS_ITS | Encounter Summary ---
Author Organization [facility] Address [address] [place] [address]. [place] [address] [place] [address] Care Team Providers Care Semiconductor Wafer Inspector Name Role Phone Ilan Pearson MD Primary Care Provider [phone] Jose Decker MD Unavailable Unavailab le Encounter Details Date Type Department Care Team (Late st Contact Info) Description 04/08/2017 Abstract [facility] [address] [place] [address] Jose Decker MD Social History Tobacco Use [...] Appointment [facility] [address] [place] [address] Shorty Marks MD [address] [place] [address] 08/02/2024 11:15 AM CDT Office Visit [facility] [address] [place] [address] Shorty Marks MD [address] [place], [place] [address] documented as of this encounter Visit Diagnoses Diagnosis Palpitations documented in this encounter Care Teams Semiconductor Wafer Inspector Relationship Specialty Start Date End Date Ilan Pearson MD [address] [place] [address] PCP - General FAMILY PRACTICE 03/24/17 08/05/23 Jose Decker MD [address] [place] [address] [place] Jazz Musician CARDIOVASCULAR DISEASE 03/24/17 05/01/22 documented as of this encounter
--- OUTSIDE RECORDS SUMMARY | 2024-02-27 10:45 | XMS_ITS | Encounter Summary ---
Author Organization [facility] Address [address] [place] [address]. [place] [address] [place] [address] Care Team Providers Care Pumping Station Supervisor Name Role Phone Ilan Pearson MD Primary Care Provider [phone] Jose Decker MD Unavailable Unavailab le Encounter Details Date Type Department Care Team (Latest Contact Info) Description 04/10/2020 Travel Social History Tobacco Use Types Packs/Day [...] COVID-19? Unable to assess 04/10/2020 2:48 PM RECREATIONAL SPORTS DIRECTOR documented as of this encounter Plan of Treatment Upcoming Encounters Date Type Department Care Team (Late st Contact Info) Description 08/02/2024 10:00 AM CDT Appointment [facility] [address] [place] [address] Shorty Marks MD [address] [place] [address] 08/02/2024 11:15 AM CDT Office Visit [facility] [address] [place] [address] Shorty Marks MD [address] [place] [address] documented as of this encounter Visit Diagnoses Not on filedocumented in this encounter Care Teams Pumping Station Supervisor Relationship Specialty Start Date End Date Ilan Pearson MD [address] [place] [address] PCP - General FAMILY PRACTICE 03/24/17 08/05/23 Jose Decker MD [address] [place] [address] [place] Line Maintenance Supervisor CARDIOVASCULAR DISEASE 03/24/17 05/01/22 documented as of this encounter
--- OUTSIDE RECORDS SUMMARY | 2024-02-27 10:45 | XMS_ITS | Encounter Summary ---
Author Organization [facility] Address [address] [place] [address]. [place] [address] [place] [address] Care Team Providers Care Executive Director Name Role Phone Ilan Pearson MD Primary Care Provider Jose Decker MD Unavailable Unavailab le Encounter Details Date Type Department Care Team (Latest Contact Info) Description 08/02/2019 Travel Social History Tobacco Use Types Packs/Day [...] Info) Description 08/02/2024 10:00 AM CDT Appointment [facility] [address] [place] [address] Shorty Marks MD [address] [place] [address] 08/02/2024 11:15 AM CDT Office Visit [facility] [address] [place] [address] Shorty Marks MD [address] [place] [address] documented as of this encounter Visit Diagnoses Not on filedocumented in this encounter Care Teams Executive Director Relationship Specialty Start Date End Date Ilan Pearson MD [address] [place] [address] PCP - General FAMILY PRACTICE 03/24/17 08/05/23 Jose Decker MD [address] [place] [address] [place] Multimedia Production Assistant CARDIOVASCULAR DISEASE 03/24/17 05/01/22 documented as of this encounter
--- OUTSIDE RECORDS SUMMARY | 2024-02-27 10:45 | XMS_ITS | Encounter Summary ---
Author Organization [facility] Address [address] [place] [address]. [place] [address] [place] [address] Care Team Providers Care Senior Applications Architect Name Role Phone Ilan Pearson MD Primary Care Provider [phone] Jose Decker MD Unavailable Unavailab le Encounter Details Date Type Department Care Team (Late st Contact Info) Description 05/11/2017 Orders Only [facility] [address] [place] [address] Jose Decker MD Social History [...] Appointment [facility] [address] [place] [address] Shorty Marks MD [address] [place], [place] [address] 08/02/2024 11:15 AM CDT Office Visit [facility] [address] [place] [address] Shorty Marks MD [address] [place] [address] documented as of this encounter Visit Diagnoses Not on filedocumented in this encounter Care Teams Senior Applications Architect Relationship Specialty Start Date End Date Ilan Pearson MD [address] [place] [address] PCP - General FAMILY PRACTICE 03/24/17 08/05/23 Jose Decker MD [address] [place] [address] [place] Sheller Operator CARDIOVASCULAR DISEASE 03/24/17 05/01/22 documented as of this encounter
--- OUTSIDE RECORDS SUMMARY | 2024-02-27 10:45 | XMS_ITS | Encounter Summary ---
Author Organization [facility] Address [address] [place] [address]. [place] [address] [place] [address] Care Team Providers Care Inspector Government Property Name Role Phone Ilan Pearson MD Primary Care Provider [phone] Jose Decker MD Unavailable Unavailab le Encounter Details Date Type Department Care Team (Late st Contact Info) Description 10/11/2003 Abstract [facility] [address] [place] [address] Brian Coker MD [address] [facility] [place] [address] Social History Tobacco Use Types Packs/Day Years [...] Appointment [facility] [address] [place] [address] Shorty Marks MD [address] [place] [address] 08/02/2024 11:15 AM CDT Office Visit [facility] [address] [place] [address] Shorty Marks MD [address] [place] [address] documented as of this encounter Visit Diagnoses Not on filedocumented in this encounter Care Teams Inspector Government Property Relationship Specialty Start Date End Date Ilan Pearson MD [address] [place] [address] PCP - General FAMILY PRACTICE 03/24/17 08/05/23 Jose Decker MD [address] [place] [address] [place] Grain Miller Helper CARDIOVASCULAR DISEASE 03/24/17 05/01/22 documented as of this encounter
--- OUTSIDE RECORDS SUMMARY | 2024-02-27 10:45 | XMS_ITS | Encounter Summary ---
Author Organization [facility] Address [address] [place] [address]. [place] [address] [place] [address] Care Team Providers Care Spinning Mule Operator Name Role Phone Ilan Pearson MD Primary Care Provider [phone] Jose Decker MD Unavailable Unavailab le Reason for Referral * Imaging (Routine) - Closed Specialty Diagnoses / Procedures Referred By Contac t Referred To Contact RADIOLOGY Diagnoses Dysfunction, bladder Procedures US RETROPERITONEAL COMP US RETROPERITONEAL LTD Jessie Hidalgo III, MD Phone: tel: fax: Referral ID Status Reason Start Date Expiration Date Visits Re quested Visits Authorized [id number] Closed 08/02/2019 09/01/2020 1 1 Reason for Visit * Imaging (Routine) - Closed Specialty Diagnoses / Procedures Referred By Contac t Referred To Contact RADIOLOGY Diagnoses Dysfunction, bladder Procedures US RETROPERITONEAL COMP US RETROPERITONEAL LTD Jessie Hidalgo III, MD Phone: tel: fax: Referral ID Status Reason Start Date Expiration Date Visits Re quested Visits Authorized [id number] Closed 08/02/2019 09/01/2020 1 1 Encounter Details Date Type Department Care Team (Latest Contact Info) Description 08/04/2019 1:27 PM CDT - 08/04/2019 11:59 PM CDT Hospital Encounter [facility] [address] [place] [address] [place] [address] [place] [phone] Discharge Disposition: Home or Self Care (Routine [...] have Coronavirus / COVID-19? No / Unsure 08/04/2019 1:26 PM CDT documented as of this encounter [...] Info) Description 08/02/2024 10:00 AM CDT Appointment [facility] [address] [place] [address] Shorty Marks MD [address] [place] [address] 08/02/2024 11:15 AM CDT Office Visit [facility] [address] [address] Shorty Marks MD [address] [place] [address] documented as of this encounter Procedures Procedure Name Priority Date/Time Associated Diagnosis Comments US RETROPERITONEAL COMP Routine 08/04/19 20 2:23 PM CDT Dysfunction, bladder documented in this encounter Results * US RETROPERITONEAL COMP (08/04/2019 2:23 PM CDT) Anatomical Region Laterality Modality Abdomen Ultrasound 08/04/2019 3:34 PM CDT Impressions 08/04/2019 3:37 PM CDT IMPRESSION: Mild prostatic enlargement. No remarkable abnormality in either kidney. Interpreted By: Pablo Ellison MD, 08/04/2019 3:34 PM Narrative 08/04/2019 3:37 PM CDT 08/04/2019, 1401 hours. HISTORY: ??Neuromuscular dysfunction of the bladder. EXAM: Ultrasound imaging of the kidneys and urinary bladder was performed utilizing grayscale and color Doppler spectral analysis imaging techniques. FINDINGS: The right kidney measures 10.3 x 4.4 x 3.8 cm. The left kidney measures 8.1 x 4.0 x 3.4 cm. No renal parenchymal mass or cyst. No dilatation of the intrarenal collecting system of either kidney and no evidence of obstructive uropathy. Normal blood flow pattern to both kidneys on Doppler color imaging. The urinary bladder is not fully distended at the time the study. The estimated volume of urine in the urinary bladder is 46 mL. Its difficult to determine if there is any bladder wall thickening due to incomplete bladder distention. The prostate appears enlarged measuring 3.0 x 2.5 x 2.7 cm. A left ureteral jet was demonstrated during the study. A right ureteral jet was not demonstrated. Procedure Note Pablo Ellison MD - 08/04/2019 08/04/2019, 1401 hours. HISTORY: Neuromuscular dysfunction of the bladder. EXAM: Ultrasound imaging of the kidneys and urinary bladder wasperformed utilizing grayscale and color Doppler spectral analysis imagingtechniques. FINDINGS: The right kidney measures 10.3 x 4.4 x 3.8 cm. The left kidney measures 8.1 x 4.0 x 3.4 cm. No renal parenchymal mass or cyst. No dilatation of the intrarenal collecting system of either kidney and no evidence of obstructive uropathy. Normal blood flow pattern to bothkidneys on Doppler color imaging. The urinary bladder is not fully distended at the time the study. The estimated volume of urine in the urinary bladder is 46 mL. Its difficultto determine if there is any bladder wall thickening due to incompletebladder distention. The prostate appears enlarged measuring 3.0 x 2.5 x 2.7 cm.A left ureteral jet was demonstrated during the study. A right ureteraljet was not demonstrated. IMPRESSION: Mild prostatic enlargement. No remarkable abnormality in either kidney. Interpreted By: Pablo Ellison MD, 08/04/2019 3:34 PM us Jessie Hidalgo III, MD ULTRASOUND Final Re sult documented in this encounter Visit Diagnoses Diagnosis Dysfunction, bladder Other functional disorder of bladder documented in this encounter Care Teams Spinning Mule Operator Relationship Specialty Start Date End Date Ilan Pearson MD [address] [place] [address] PCP - General FAMILY PRACTICE 03/24/17 08/05/23 Jose Decker MD [address] [place] [address] [place] Cabinet Abrasive Sandblaster CARDIOVASCULAR DISEASE 03/24/17 05/01/22 documented as of this encounter
--- OUTSIDE RECORDS SUMMARY | 2024-02-27 10:45 | XMS_ITS | Encounter Summary ---
Author Organization [facility] Address [address] [place] [address]. [place] [address] [place] [address] Care Team Providers Care Bulb Tester Name Role Phone Unavailable Primary Care Provider Unavailabl e Reason for Visit * Reason Comments Holter Monitor Report (SCAN) Encounter Details Date Type Department Care Team (Late st Contact Info) Description 09/16/2016 Scan [facility] [address] [place] [phone] Scanned, Documents Holter Monitor Report (SCAN) Social History Tobacco Use Types Packs/Day [...] Info) Description 08/02/2024 10:00 AM CDT Appointment [facility] [address] [place] [address] Shoryt Marks MD [address] [place] [address] 08/02/2024 11:15 AM CDT Office Visit [facility] [address] [place] [phone] Shorty Marks MD [address] [place], [place] [address] documented as of this encounter Procedures Procedure Name Priority Date/Time Associated Diagnosis Comments HOLTER DOCUMENT (SCAN ORDER) Routine 09/03/2016 Palpitations documented in this encounter Results * HOLTER DOCUMENT (09/03/2016) us Documents Scanned SCANNING Final Result documented in this encounter Visit Diagnoses Diagnosis Palpitations- Primary documented in this encounter
--- OUTSIDE RECORDS SUMMARY | 2024-02-27 10:45 | XMS_ITS | Encounter Summary ---
Author Organization [facility] Address [address] [place] [address]. [place] [address] [place] [address] Care Team Providers Care Graphic Design Specialist Name Role Phone Ilan Pearson MD Primary Care Provider [phone] Jose Decker MD Unavailable Unavailab le Encounter Details Date Type Department Care Team (Latest Contact Info) Description 04/10/2020 2:42 PM HEALTH EDUCATION AIDE - 04/10/2020 11:59 PM HEALTH EDUCATION AIDE Hospital Encounter [facility] [address] [place] [address] [place] [address] [address] Discharge Disposition: Home or Self [...] COVID-19? Unable to assess 04/10/2020 2:48 PM HEALTH EDUCATION AIDE documented as of this encounter Medications at [...] Info) Description 08/02/2024 10:00 AM CDT Appointment [facility] [address] [place] [address] [place] [address] Shorty Marks MD [address] [place], [place] [phone] 08/02/2024 11:15 AM CDT Office Visit [facility] [place] [address] Shorty Marks MD [address] [place], [place] [address] documented as of this encounter Procedures Procedure Name Priority Date/Time Associated Diagnosis Comments BASIC METABOLIC PANEL Routine 04/10/2020 3:11 PM HEALTH EDUCATION AIDE Neurogenic dysfunction of the urinary bladder documented in this encounter Results * (ABNORMAL) BASIC METABOLIC PANEL (04/10/2020 3:11 PM HEALTH EDUCATION AIDE) SODIUM S/P/B 141 136 - 145 MMOL/L 04/10/2020 3:24 PM HEALTH EDUCATION AIDE [facility] POTASSIUM S/P/B 4.3 3.5 - 5.1 MMOL/L 04/10/2020 3:24 PM [facility] CHLORIDE S/P/B 103 98 - 107 MMOL/L 04/10/2020 3:24 PM [facility] CO2 27.1 21.0 - 32.0 MMOL/L 04/10/2020 3:24 PM [facility] GLUCOSE 112(H) 70 - 99 MG/DL 04/10/2020 3:24 PM [facility] Comment: FASTING GLUCOSE 100 TO 125 MG/DL IS CONSISTENT WITH IMPAIRED FASTING GLUCOSE. FASTING GLUCOSE >125 MG/DL IS CONSISTENT WITH DIABETES. RANDOM GLUCOSE >200 MG/DL WITH HYPERGLYCEMIC SYMPTOMS IS CONSISTENT WITH DIABETES. PER ADA GUIDELINES BUN 16 6 - 24 MG/DL 04/10/2020 3:24 PM HEALTH EDUCATION AIDE [facility] CREATININE S/P/B 0.79 0.70 - 1.30 MG/DL 04/10/2020 3:24 PM [facility] CALCIUM S/P/B 9.1 8.4 - 10.5 MG/DL 04/10/2020 3:24 PM [facility] ANION GAP 10.9 5.0 - 15.0 MMOL/L 04/10/2020 3:24 PM [facility] OSMOLALITY (CALC) 294 MOSM/KG 021 3:24 PM [facility] Comment:REFERENCE RANGE NOT ESTABLISHED EGFR NON-AFR. AMER. >90 >89 ML/MIN/1. 73 M2 04/10/2020 3:24 PM [facility] EGFR AFR. AMER. >90 >89 ML/MIN/1. 73 M2 04/10/2020 3:24 PM [facility] GFR NOTES GFR REFERENCE S: 04/10/2020 3:24 PM [facility] Comment: THE ESTIMATED GFR IS [...] FAILURE: <15 ml/min/1.73 m2 04/10/2020 3:11 PM HEALTH EDUCATION AIDE us Jessie Hidalgo III, MD LABORATORY Final Re sult [facility] [address] [place] [address], documented in this encounter Visit Diagnoses Diagnosis Neurogenic dysfunction of the urinary bladder Neurogenic bladder, NOS documented in this encounter Care Teams Graphic Design Specialist Relationship Specialty Start Date End Date Ilan Pearson MD [address] [place] [address] PCP - General FAMILY PRACTICE 03/24/17 08/05/23 Jose Decker MD [address] [place] [address] [place] Newspaper Clipper CARDIOVASCULAR DISEASE 03/24/17 05/01/22 documented as of this encounter
--- OUTSIDE RECORDS SUMMARY | 2024-02-27 10:45 | XMS_ITS | Encounter Summary ---
Author Organization [facility] Address [address] [place] [address]. [place] [address] [place] [address] Care Team Providers Care Environmental Studies Faculty Member Name Role Phone Ilan Pearson MD Primary Care Provider [phone] Jose Decker MD Unavailable Unavailab le Encounter Details Date Type Department Care Team (Late st Contact Info) Description 04/10/2017 Orders Only [facility] [address] [place] [address] Jose Decker MD Social History [...] Appointment [facility] [address] [place] [address] Shorty Marks MD [address] [place], [place] [address] 08/02/2024 11:15 AM CDT Office Visit [facility] [address] [place] [address] Shorty Marks MD [address] [place] [address] Scheduled Orders Name Type Priority Associated Diagnoses Orde r Schedule Cardiac event monitor Cardiac Services Routine Palpitations Expected: 04/10/2017, Expires: 04/10/2018 documented as of this encounter Visit Diagnoses Diagnosis Palpitations- Primary documented in this encounter Care Teams Environmental Studies Faculty Member Relationship Specialty Start Date End Date Ilan Pearson MD [address] [place] [address] PCP - General FAMILY PRACTICE 03/24/17 08/05/23 Jose Decker MD [address] [place] [address] Gerald Claims Sorter CARDIOVASCULAR DISEASE 03/24/17 05/01/22 documented as of this encounter
--- OUTSIDE RECORDS SUMMARY | 2024-02-27 10:45 | XMS_ITS | Encounter Summary ---
Author Organization [facility] Address [address] [place] [address]. [place] [address] [place] [address] Care Team Providers Care Tail Trimmer Name Role Phone Ilan Pearson MD Primary Care Provider [phone] Jose Decker MD Unavailable Unavailab le Encounter Details Date Type Department Care Team (Late st Contact Info) Description 08/02/[address] [facility] [address] [place] [address] [place] [address] [place] [address] Social History Tobacco Use Types Packs/Day [...] CDT Appointment [facility] [address] [place] [address] Shorty Marks MD [address] [place] [address] 08/02/2024 11:15 AM CDT Office Visit [facility] [place] [address] Shorty Marks MD [address] [place] [address] documented as of this encounter Results * (ABNORMAL) PROSTATE SPECIFIC ANTIGEN, DIAG (08/02/2019 12:13 PM CDT) PSA 6.45(H) <4.00 NG/ML 08/02/2019 12:45 PM CDT [facility] 08/02/2019 12:1 3 PM CDT Jessie Hidalgo III, MD LABORATORY Final Re sult [facility] [address] [place] [address], * (ABNORMAL) BASIC METABOLIC PANEL (08/02/2019 12:13 PM CDT) SODIUM S/P/B 142 136 - 145 MMOL/L 08/02/2019 12:45 PM CDT [facility] POTASSIUM S/P/B 4.1 3.5 - 5.1 MMOL/L 08/02/2019 12:45 PM CDT [facility] CHLORIDE S/P/B 105 98 - 107 MMOL/L 08/02/2019 12:45 PM CDT [facility] CO2 28.5 21.0 - 32.0 MMOL/L 08/02/2019 12:45 PM CDT [facility] GLUCOSE 92 70 - 99 MG/DL 08/02/2019 12:45 PM CDT [facility] Comment: FASTING GLUCOSE 100 TO 125 MG/DL IS CONSISTENT WITH IMPAIRED FASTING GLUCOSE. FASTING GLUCOSE >125 MG/DL IS CONSISTENT WITH DIABETES. RANDOM GLUCOSE >200 MG/DL WITH HYPERGLYCEMIC SYMPTOMS IS CONSISTENT WITH DIABETES. PER ADA GUIDELINES BUN 13 6 - 24 MG/DL 08/02/2019 12:45 PM CDT [facility] CREATININE S/P/B 0.65(L) 0.70 - 1.30 MG/DL 08/02/2019 12:45 PM CDT [facility] CALCIUM S/P/B 9.7 8.4 - 10.5 MG/DL 08/02/2019 12:45 PM CDT [facility] ANION GAP 8.5 5.0 - 15.0 MMOL/L 08/02/2019 12:45 PM CDT [facility] OSMOLALITY (CALC) 294 MOSM/KG 020 12:45 PM CDT [facility] Comment:REFERENCE RANGE NOT ESTABLISHED EGFR NON-AFR. AMER. >90 >89 ML/MIN/1. 73 M2 08/02/2019 12:45 PM CDT [facility] EGFR AFR. AMER. >90 >89 ML/MIN/1. 73 M2 08/02/2019 12:45 PM CDT [facility] GFR NOTES GFR REFERENCE S: 08/02/2019 12:45 PM CDT [facility] Comment: THE ESTIMATED GFR IS CALCULATED [...] Hidalgo III, MD LABORATORY Final Re sult [facility] [address] [place] [address], documented in this encounter Visit Diagnoses Diagnosis Neurogenic dysfunction of the urinary bladder- Primary Neurogenic bladder, NOS BPH with obstruction/lower urinary tract symptoms Hypertrophy of prostate with urinary obstruction and other lower urinary tract symptoms (LUTS) documented in this encounter Care Teams Tail Trimmer Relationship Specialty Start Date End Date Ilan Pearson MD [address] [place] [address] PCP - General FAMILY PRACTICE 03/24/17 08/05/23 Jose Decker MD [address] [place] [address] [place] Superintendent House CARDIOVASCULAR DISEASE 03/24/17 05/01/22 documented as of this encounter
--- OUTSIDE RECORDS SUMMARY | 2024-02-27 10:45 | XMS_ITS | Encounter Summary ---
Author Organization [facility] Address [address] [place] [address]. [place] [address] [place] [address] Care Team Providers Care Marketing Designer Name Role Phone Ilan Pearson MD Primary Care Provider [phone] Jose Decker MD Unavailable Unavailab le Reason for Visit * Reason Comments ECG (SCAN) Encounter Details Date Type Department Care Team (Late st Contact Info) Description 04/06/2017 Scan [facility] [address] [place] [address] Scanned, Documents ECG (SCAN) Social History Tobacco Use Types [...] Appointment [facility] [address] [place] [address] Shorty Marks MD [address] [place], [place] [address] 08/02/2024 11:15 AM CDT Office Visit [facility] [address] [place] [address] Shorty Marks MD [address] [place] [address] documented as of this encounter Procedures Procedure Name Priority Date/Time Associated Diagnosis Comments ECG GENERIC (SCAN ORDER) Routine 02/23/2017 STRESS TEST (SCAN ORDER) Routine 09/25/2016 documented in this encounter Results * ECG (02/23/2017) us Documents Scanned SCANNING Final Result * STRESS TEST (09/25/2016) us Documents Scanned SCANNING Final Result documented in this encounter Visit Diagnoses Not on filedocumented in this encounter Care Teams Marketing Designer Relationship Specialty Start Date End Date Ilan Pearson MD [address] [place] [address] PCP - General FAMILY PRACTICE 03/24/17 08/05/23 Jose Decker MD [address] [place] [address] [place] Inspector Missile CARDIOVASCULAR DISEASE 03/24/17 05/01/22 documented as of this encounter
--- OUTSIDE RECORDS SUMMARY | 2024-02-27 10:45 | XMS_ITS | Encounter Summary ---
Author Organization [facility] Address [address] [place] [address]. [place] [address] [place] [address] Care Team Providers Care Docking Saw Operator Name Role Phone Ilan Pearson MD Primary Care Provider [phone] Jose Decker MD Unavailable Unavailab le Encounter Details Date Type Department Care Team (Latest Contact Info) Description 08/04/2019 Travel Social History Tobacco Use Types Packs/Day [...] Info) Description 08/02/2024 10:00 AM CDT Appointment [facility] [address] [place] [address] Shorty Marks MD [address] [place] [address] 08/02/2024 11:15 AM CDT Office Visit [facility] [address] [place] [address] Shorty Marks MD [address] [place] [address] documented as of this encounter Visit Diagnoses Not on filedocumented in this encounter Care Teams Docking Saw Operator Relationship Specialty Start Date End Date Ilan Pearson MD [address] [place] [address] PCP - General FAMILY PRACTICE 03/24/17 08/05/23 Jose Decker MD [address] [place] [address] [place] Rn Telephone Triage CARDIOVASCULAR DISEASE 03/24/17 05/01/22 documented as of this encounter
--- OUTSIDE RECORDS SUMMARY | 2024-02-27 10:45 | XMS_ITS | Encounter Summary ---
Author Organization [facility] Address [address] [place] [address]. [place] [address] [place] [address] Care Team Providers Care Alligator Trapper Name Role Phone Ilan Pearson MD Primary Care Provider [phone] Jose Decker MD Unavailable Unavailab le Reason for Visit * Reason Comments Holter Monitor Report (SCAN) Encounter Details Date Type Department Care Team (Late st Contact Info) Description 05/12/2017 Scan [facility] [address] [place] [phone] Scanned, Documents Holter Monitor Report (SCAN) Social [...] Appointment [facility] [address] [place] [address] Shorty Marks MD [address] [place] [address] 08/02/2024 11:15 AM CDT Office Visit [facility] [address] [place] [address] Shorty Marks MD [address] [place] [address] documented as of this encounter Procedures Procedure Name Priority Date/Time Associated Diagnosis Comments HOLTER DOCUMENT (SCAN ORDER) Routine 04/08/2017 Palpitations documented in this encounter Results * HOLTER DOCUMENT (04/08/2017) us Documents Scanned SCANNING Final Result documented in this encounter Visit Diagnoses Diagnosis Palpitations- Primary documented in this encounter Care Teams Alligator Trapper Relationship Specialty Start Date End Date Ilan Pearson MD [address] [place] [address] PCP - General FAMILY PRACTICE 03/24/17 08/05/23 Jose Decker MD [address] [place] [address] [place] Bike Shop Manager CARDIOVASCULAR DISEASE 03/24/17 05/01/22 documented as of this encounter
--- OUTSIDE RECORDS SUMMARY | 2024-02-27 10:45 | XMS_ITS | Encounter Summary ---
Author Organization [facility] Address [address] [place] [address]. [place], [place] [address] [place] [address] Care Team Providers Care Returning Officer Name Role Phone Ilan Pearson MD Primary Care Provider [phone] Jose Decker MD Unavailable Unavailab le Reason for Visit * Reason Onset Date Comments Medication Problem 05/25/2017 Encounter Details Date Type Department Care Team (Late st Contact Info) Description 05/25/2017 [facility] [address] [place] [address] Jose Decker MD Medication Problem Social History Tobacco Use Types Packs/Day Years [...] as of this encounter Progress Notes * Rachael Ashton - 06/23/2017 2:28 PM CDT HM showed only SR or mild ST * Rachael Ashton - 05/25/2017 2:09 PM CDT Patient called to report he stopped the Toprol due to significant headaches. documented in this encounter Plan of Treatment Upcoming Encounters Date Type Department Care Team (Late st Contact Info) Description 08/02/2024 10:00 AM CDT Appointment [facility] [address] [place], [place] [address] [address] Shorty Marks MD [address] [place], [place] [address] 08/02/2024 11:15 AM CDT Office Visit [facility] [address] [place] [address] Shorty Marks MD [address] [place], [place] [address] documented as of this encounter Visit Diagnoses Not on filedocumented in this encounter Care Teams Returning Officer Relationship Specialty Start Date End Date Ilan Pearson MD [address] [place] [address] PCP - General FAMILY PRACTICE 03/24/17 08/05/23 Jose Decker MD [address] [place] [address] [place] Demonstrator CARDIOVASCULAR DISEASE 03/24/17 05/01/22 documented as of this encounter
--- OUTSIDE RECORDS SUMMARY | 2024-02-27 10:45 | XMS_ITS | Encounter Summary ---
Author Organization [facility] Address [address] [place] [address]. [place] [address] [place] [address] Care Team Providers Care Video Tape Editor Name Role Phone Ilan Pearson MD Primary Care Provider [phone] Jose Decker MD Unavailable Unavailab le Encounter Details Date Type Department Care Team (Late st Contact Info) Description 07/30/1997 Abstract [facility] [address] [place] [address] , Generic Conversion, Social History Tobacco Use Types Packs/Day Years [...] Info) Description 08/02/2024 10:00 AM CDT Appointment [facility] [address] [place] [address] Shotry Marks MD [address] [place], [place] [address] 08/02/2024 11:15 AM CDT Office Visit [facility] [address] [place] [phone] Shorty Marks MD [address] [place] [address] documented as of this encounter Visit Diagnoses Not on filedocumented in this encounter Care Teams Video Tape Editor Relationship Specialty Start Date End Date Ilan Pearson MD [address] [place] [address] PCP - General FAMILY PRACTICE 03/24/17 08/05/23 Jose Decker MD [address] [place] [address] [place] Dancing Master CARDIOVASCULAR DISEASE 03/24/17 05/01/22 documented as of this encounter
--- OUTSIDE RECORDS SUMMARY | 2024-02-27 10:45 | XMS_ITS | Encounter Summary ---
Author Organization [facility] Address [address] [place] [address]. [place] [address] [place] [address] Care Team Providers Care Brush Or Broom Cutter Name Role Phone Barak Mckeon MD Primary Care Provider Jose Decker MD Unavailable Unavailab le Reason for Visit * Reason Comments Consult Encounter Details Date Type Department Care Team (Late st Contact Info) Description 04/08/2017 11:20 AM LANDING SCALER Office Visit [facility] AT [address] [place] [phone] Jose Decker MD Consult Social History Tobacco [...] Sign Reading Time Taken Comments Blood Pressure 149/80 04/08/2017 10:40 AM LANDING SCALER Pulse 81 04/08/2017 10:40 AM LANDING SCALER Temperature - - Respiratory Rate 20 04/08/2017 10:40 AM LANDING SCALER Oxygen Saturation 99% 04/08/2017 10:40 AM LANDING SCALER Inhaled Oxygen Concentration - - Weight 92.5 kg (204 lb) 04/08/2017 10:40 AM LANDING SCALER Height 182.9 cm (6') 04/08/2017 10:40 AM LANDING SCALER Body Mass Index 27.67 04/08/2017 10:40 AM LANDING SCALER documented in this encounter Progress Notes * Jose Decker MD - 04/08/2017 11:20 AM CST Reason for Visit: Consult Impression: 1. Intermittent Palpitations with holter documented sinus tachycardia 2. Recent normal stress test Recommendations and Plan: 1. Ms. Tyler continues to do well without angina or HF related symptoms. Given her palpitations, will get event monitoring to evaluate this further. I have asked her to continue current medical therapy. Depending on event monitor results, will consider BB or CCB. 2. Low salt Low cholesterol diet and regular exercise encouraged. 3. LDL goal <100 with non-HDL goal of <130. Please titrate statin therapy to achieve these goals. 4. Follow up in 2-3 months. History of Present Illness: Referred for evaluation for tachycardia. Remains active. Reports intermittent palpitations. Recent holter showed HR up to 150. Recent stress test was normal. Denies any CP/SOB/LH/Dizziness/Pre-syncope/Syncope. No orthopnea, PND, LE edema. No claudication. ROS neg. Medications: Current Outpatient Prescriptions: ??? albuterol sulfate HFA (PROAIR HFA) 108 (90 BASE) MCG/ACT inhaler, Inhale 2 puffs into the lungsevery 4 (four) hours as needed for Wheezing., Disp: , Rfl: ??? meloxicam 15 MG tablet, Take 15 mg by mouth daily., Disp: , Rfl: ??? ranitidine 150 MG tablet, Take 150 mg by mouth 2 (two) times daily., Disp: , Rfl: Allergies Allergen Reactions ??? Gabapentin Unknown Past Medical History: Diagnosis Date ??? Taylor's esophagus ??? Esophageal reflux ??? GERD (gastroesophageal reflux disease) ??? Mild hyperlipidemia Past Surgical History: Procedure Laterality Date ??? ANESTH,NECK VESSEL SURGERY NOS Disc ??? CARPAL TUNNEL RELEASE Bilateral Social History Social History ??? Marital status: Unknown Spouse name: N/A ??? Number of children: [...] new or significant memory loss. Filed Vitals: 04/08/17 1040 BP: 149/80 Pulse: 81 Resp: 20 SpO2: 99% Weight: 92.5 kg (204 lb) Height: 6' (1.829 m) Physical Exam [...] Nursing note and vitals reviewed. Diagnoses/Impression: 1. Heart palpitations Referring Provider: No ref. provider found PCP: BARAK MCKEON documented in this encounter Plan of Treatment Upcoming Encounters Date Type Department Care Team (Late st Contact Info) Description 08/02/2024 10:00 AM CDT Appointment [facility] [address] [facility] [place] [address] Shorty Marks MD [address] [place], [place] [address] 08/02/2024 11:15 AM CDT Office Visit [facility] [address] [facility] [phone] Shorty Marks MD [address] [place], [place] [address] documented as of this encounter Visit Diagnoses Diagnosis Heart palpitations- Primary Palpitations documented in this encounter Care Teams Brush Or Broom Cutter Relationship Specialty Start Date End Date Barak Mckeon MD [address] [place] [address] PCP - General FAMILY PRACTICE 03/24/17 08/05/23 Jose Decker MD [address] [place] [address] [place] Wet Machine Tender CARDIOVASCULAR DISEASE 03/24/17 05/01/22 documented as of this encounter
--- OUTSIDE RECORDS SUMMARY | 2024-02-27 10:45 | XMS_ITS | Encounter Summary ---
Author Organization [facility] Address [address] [place] [address]. [place] [address] [place] [address] Care Team Providers Care Supervisor Network Control Operators Name Role Phone Ilan Pearson MD Primary Care Provider [phone] Jose Decker MD Unavailable Unavailab le Encounter Details Date Type Department Care Team (Late st Contact Info) Description 05/18/2017 Orders Only [facility] [address] [place] [address] Carmen Mcfarlane, HIRAL Social History Tobacco Use Types Packs/Day Years [...] 08/02/2024 10:[address] [facility] [address] [address] Shorty Marks MD [address] [place], [place] [address] 08/02/2024 11:15 AM CDT [facility] [address] [phone] Shorty Marks MD [address] [place] [address] documented as of this encounter Visit Diagnoses Diagnosis Palpitations documented in this encounter Care Teams Supervisor Network Control Operators Relationship Specialty Start Date End Date Ilan Pearson MD [address] [place] [address] PCP - General FAMILY PRACTICE 03/24/17 08/05/23 Jose Decker MD [address] [place] [address] [place] [employer] Corrosion Proofer CARDIOVASCULAR DISEASE 03/24/17 05/01/22 documented as of this encounter
--- OUTSIDE RECORDS SUMMARY | 2024-02-27 10:45 | XMS_ITS | Encounter Summary ---
Author Organization [facility] Address [address] [place] [address]. [place], [place] [address] [place] [address] Care Team Providers Care Maitre D Name Role Phone Ilan Pearson MD Primary Care Provider [phone] Jose Decker MD Unavailable Unavailab le Reason for Visit * Reason Onset Date Comments Other 06/26/2017 Encounter Details Date Type Department Care Team (Late st Contact Info) Description 06/26/2017 Telephone [employer] [facility] [address] [place] [address] Jose Decker MD Other Social History Tobacco Use Types Packs/Day Years [...] encounter Progress Notes * Rachael Ashton - 06/29/2017 9:26 AM CDT Ajit reports that H/A and blurry vision subsided after stopping Toprol. Follow up as planned 239am SFL. * Reta Charles - 06/26/2017 9:51 AM CDT Patient calling stating that he had called last month regarding stopping medication and did not hear back. Please call [phone] documented in this encounter Plan of Treatment Upcoming Encounters Date Type Department Care Team (Late st Contact Info) Description 08/02/2024 10:00 AM CDT Appointment [facility] [address] [place] [address] Shorty Marks MD [address] [place], [place] [address] 08/02/2024 11:15 AM CDT Office Visit [facility] [address] [place] [address] Shorty Marks MD [address] [place], [place] [address] documented as of this encounter Visit Diagnoses Not on filedocumented in this encounter Care Teams Maitre D Relationship Specialty Start Date End Date Ilan Pearson MD [address] [place] [address] PCP - General FAMILY PRACTICE 03/24/17 08/05/23 Jose Decker MD [address] [place] [address] [place] Senior Financial Accountant CARDIOVASCULAR DISEASE 03/24/17 05/01/22 documented as of this encounter
--- OUTSIDE RECORDS SUMMARY | 2024-02-27 10:45 | XMS_ITS | Encounter Summary ---
Author Organization [facility] Address [address] [place] [address]. [place] [address] [place] [address] Care Team Providers Care Rn Float Name Role Phone Barak Mckeon MD Primary Care Provider [phone] Jose Decker MD Unavailable Unavailab le Reason for Visit * Reason Comments Follow Up Encounter Details Date Type Department Care Team (Late st Contact Info) Description 05/11/2017 12:40 PM CDT Office Visit [facility] AT [address] [place] [address] Jose Decker MD Follow Up Social History [...] Sign Reading Time Taken Comments Blood Pressure 137/82 05/11/2017 12:58 PM CDT Pulse 80 05/11/2017 12:58 PM CDT Temperature - - Respiratory Rate 20 05/11/2017 12:58 PM CDT Oxygen Saturation 97% 05/11/2017 12:58 PM CDT Inhaled Oxygen Concentration - - Weight 94.3 kg (208 lb) 05/11/2017 12:58 PM CDT Height 182.9 cm (6') 05/11/2017 12:58 PM CDT Body Mass Index 28.21 05/11/2017 12:58 PM CDT documented in this encounter Progress Notes * Jose Decker MD - 05/11/2017 12:40 PM CDT Reason for Visit: Follow Up Impression: 1. Intermittent Palpitations with holter documented sinus tachycardia. Event monitor pending. 2. Recent normal stress test Recommendations and Plan: 1. Mr. Tyler continues to do well without angina or HF related symptoms. Given his palpitations, Will start him on Toprol XL 25mg/d. Event monitoring results are pending. I have asked him to continue current medical therapy. 2. Low salt Low cholesterol diet and regular exercise encouraged. 3. LDL goal <100 with non-HDL goal of <130. Please titrate statin therapy to achieve these goals. 4. Follow up in 3 months. History of Present Illness: Previously seen for evaluation of tachycardia. Remains active. Reports continued intermittent palpitations. Recent holter showed HR up to 150. Recent stress test showed EKG changes but no ischemia or infarct was seen. Denies any CP/SOB/LH/Dizziness/Pre-syncope/Syncope. No orthopnea, PND, LE edema. No claudication. ROS neg. Medications: Current Outpatient Prescriptions: ??? oxyCODONE-acetaminophen 5-325 MG tablet, Take 2 tablets by mouth every 8 (eight) hours as needed for Pain., Disp: , Rfl: ??? albuterol sulfate HFA (PROAIR HFA) 108 (90 BASE) MCG/ACT inhaler, Inhale 2 puffs into the lungsevery 4 (four) hours as needed for Wheezing., Disp: , Rfl: ??? meloxicam 15 MG tablet, Take 15 mg by mouth daily., Disp: , Rfl: ??? metoprolol succinate 25 MG 24 hr tablet, Take 1 tablet (25 mg total) by mouth daily., Disp: 90 tablet, Rfl: 3 ??? ranitidine 150 MG tablet, Take 150 [...] new or significant memory loss. Filed Vitals: 05/11/17 1258 BP: 137/82 Pulse: 80 Resp: 20 SpO2: 97% Weight: 94.3 kg (208 lb) Height: 6' (1.829 m) Physical Exam [...] Info) Description 08/02/2024 10:00 AM CDT Appointment [facility] [address] [place] [address] [place] [address] Shorty Marks MD [address] [place] [address] 08/02/2024 11:15 AM CDT Office Visit [facility] [address] [place] [address] Shorty Marks MD [address] [place], [place] [address] documented as of this encounter Visit Diagnoses Diagnosis Heart palpitations- Primary Palpitations documented in this encounter Care Teams Rn Float Relationship Specialty Start Date End Date Barak Mckeon MD [address] [place] [address] PCP - General FAMILY PRACTICE 03/24/17 08/05/23 Jose Decker MD [address] [place] [address] [place] Magnet Valve Assembler CARDIOVASCULAR DISEASE 03/24/17 05/01/22 documented as of this encounter
--- OUTSIDE RECORDS SUMMARY | 2024-02-27 10:49 | XMS_ITS | Continuity of Care Document ---
Author Organization [facility] Address [address] [place] [address] [address] [place] [address] Phone Care Team Providers Care Manager Of International Name Role Phone Pisano OD, Blaine Unavailable Unavailable Procedures Procedure Date Office/outpatient Visit, Est Remove Foreign Body From Eye Advance Directives Directive Yes / No Effective Date File Name No Information Encounters Encounter Description Practice Location Reason(s) For Visit Diagnoses Date Provider Providers Copied on Encounter Office/outpat ient Visit, Est [facility], [address] [place] [address] [address], [place], [place], [id number], tel:[phone] [facility] No Information 5-201 0 Pisano OD Blaine. [address] , [address], [place], [place], [facility], [place]. tel:[phone] [facility], [address] [place] [address] [address], [place], [place], [address], tel:[phone] [facility] No Information 8-201 0 Pisano OD Blaine. [address] , [address], [place], [address], [place]. tel:[phone] Family History Family Member Type Diagnosis Age At Onset No Information Payers Payer name Insurance type Covered alliance party ID Authoriza tion(s) [facility] [id number] Social History Type Description Quantity Date Captured Comments Sex Male Smoking Status No Information Chief Complaint And Reason For Visit No Information Reason For Referral Reason For Referral No Information History Of Present Illness Encounter Date Complaint History Of Prese nt Illness No Information Functional Status Date Functional Assessmen t No Information Instructions Date Instruction Additional Infor mation No Information Assessments Type Assessment Date No Information Patient Care Teams Name Effective Dates (start - stop) Status Members No Information
--- OUTSIDE RECORDS SUMMARY | 2024-02-27 12:06 | XMS_ITS | Referral Summary ---
Author Organization [facility] Address [address] [facility] [place] [address] Care Team Providers Care Mill Operator Head Name Role Phone Ilan Pearson MD Primary Care Provider [phone] Source Comments [facility],non-owned Affiliates and Associated Physician Practices is amultiple site organization consisting of ambulatory clinics and hospital sitesin [place], [place] and [place]. This disclosure is being madepursuant to the Care Everywhere program and may not contain all information available regarding this patient. Last updated 17.[facility] [employer] Allergies Active Allergy Reactions Criticality Noted Date [...] on file Medical Devices Implanted Type Area Curbstone Setter Device Identifier Shelf Expiration Date Model / Serial / Lot Screw Set Std Spne Implanted:Qty: 8 on 05/27/2019 by French Kim MD at [facility] [employer] [id number] / / Screw 4.5mm 20mm Ma Spne Oc Upr Thor Implanted:Qty: 1 on 05/27/2019 by French Kim MD at [facility] [employer] Spine [id number] / / Screw 4.5mm 26mm Ma Spne Bone Implanted:Qty: 1 on 05/27/2019 by French Kim MD at [facility] [employer] Spine [id number] / / Screw 3.5mm 20mm Ma Spne Bone Implanted:Qty: 4 on 05/27/2019 by French Kim MD at [facility] [employer] [id number] / / Screw 4.5mm 22mm Ma Spne Bone Implanted:Qty: 2 on 05/27/2019 by French Kim MD at [facility] [employer] Spine [id number] / / Slnt Dura Duraseal Pg Trilysine Amine 5 Implanted:Qty: 1 on 05/27/2019 by French Kim MD at [facility] [employer] Koko 06/15/2020 [id number] / / [id number] Usman Spnl 60mm 3.5mm Pcut Implanted:Qty: 2 on 05/27/2019 by French Kim MD at [facility] [employer] Spine [id number] / / Advance Directives * Full Code [...] 4:12 PM 05/31/2019 4:58 PM Care Teams Mill Operator Head Relationship Specialty Start Date End Date Ilan Pearson MD [address] [place] [address] PCP - General Family Medicine 05/25/19
--- OUTSIDE RECORDS SUMMARY | 2024-02-27 12:06 | XMS_ITS | Clinical Summary ---
Author Organization [facility] Address [address] [facility] [place] [address] Care Team Providers Care Hydroelectric Plant Technician Name Role Phone Ilan Pearson MD Primary Care Provider [phone] Source Comments [facility],non-owned Affiliates and Associated Physician Practices is amultiple site organization consisting of ambulatory clinics and hospital sitesin [place], [place], [place] and [place]. This disclosure is being madepursuant to the Care Everywhere program and may not contain all information available regarding this patient. Last updated 17.[facility] [employer] Allergies Active Allergy Reactions Criticality Noted Date [...] this topic Medical Devices Implanted Type Area Machine Set Up Device Identifier Shelf Expiration Date Model / Serial / Lot Screw Set Std Spne Implanted:Qty: 8 on 05/27/2019 by French Kim MD at [facility] Med[employer] [id number] / / Screw 4.5mm 20mm Ma Spne Oc Upr Thor Implanted:Qty: 1 on 05/27/2019 by French Kim MD at [facility] [employer] Spine [id number] / / Screw 4.5mm 26mm Ma Spne Bone Implanted:Qty: 1 on 05/27/2019 by French Kim MD at [facility] [employer] Spine [id number] / / Screw 3.5mm 20mm Ma Spne Bone Implanted:Qty: 4 on 05/27/2019 by French Kim MD at [facility] [employer] [id number] / / Screw 4.5mm 22mm Ma Spne Bone Implanted:Qty: 2 on 05/27/2019 by French Kim MD at [facility] [employer] Spine [id number] / / Slnt Dura Duraseal Pg Trilysine Amine 5 Implanted:Qty: 1 on 05/27/2019 by French Kim MD at [facility] [employer] Koko 06/15/2020 [id number] / / [id number] Usman Spnl 60mm 3.5mm Pcut Implanted:Qty: 2 on 05/27/2019 by French Kim MD at [facility] [employer] Spine [id number] / / Advance Directives * Full Code [...] 4:12 PM 05/31/2019 4:58 PM Care Teams Hydroelectric Plant Technician Relationship Specialty Start Date End Date Ilan Pearson MD [address] [place], [place] [id number] PCP - General Family Medicine 05/25/19
--- OUTSIDE RECORDS SUMMARY | 2024-02-27 12:07 | XMS_ITS | Encounter Summary ---
Author Organization [facility] Address [address] [facility] [place] [address] Care Team Providers Care Insulation Mechanic Name Role Phone Ilan Pearson MD Primary Care Provider [phone] Encounter Details Date Type Department Care Team (Late st Contact Info) Description 01/10/2020 11:00 AM DISABILITY MANAGER Office Visit [facility] [address] [place] [address] Almita Feliciano, INDUSTRIAL CHEMICALS SUPERVISOR [address] [place] [address] [place] [phone] Oropharyngeal dysphagia (Primary Dx); Dysphagia, unspecified type; [...] this encounter Progress Notes * Almita Vo, INDUSTRIAL CHEMICALS SUPERVISOR - 01/11/2020 9:25 AM CST Follow-up for [...] ~8 week for follow-up. Almita Vo MA, CCC-INDUSTRIAL CHEMICALS SUPERVISOR, [facility] Speech Language Pathologist Department of Otolaryngology- Head and Neck Surgery BILITY MANAGER documented in this encounter Plan of Treatment Not on file documented as of this encounter Visit Diagnoses Diagnosis Oropharyngeal dysphagia- Primary Dysphagia, oropharyngeal phase Dysphagia, unspecified type Vocal cord paralysis Paralysis of vocal cords or larynx, unspecified S/P cervical spinal fusion Arthrodesis status documented in this encounter Care Teams Insulation Mechanic Relationship Specialty Start Date End Date Ilna Pearson MD [address] [place] [address] PCP - General Family Medicine 05/25/19 documented as of this encounter
--- OUTSIDE RECORDS SUMMARY | 2024-02-27 12:07 | XMS_ITS | Encounter Summary ---
Author Organization [facility] Address [address] [facility] [place] [address] Care Team Providers Care Finishing Powder Press Operator Name Role Phone Ilan Pearson MD Primary Care Provider [phone] Encounter Details Date Type Department Care Team (Late st Contact Info) Description 11/14/2019 Testing Visit [facility] [address] [place] [phone] Almita Feliciano P, MANAGER COLLEGE [address] [place] [address] Oropharyngeal dysphagia ; S/P cervical [...] this encounter Progress Notes * Almita Vo, MANAGER COLLEGE - 11/14/2019 4:07 PM CDT [facility] Speech Language Pathology Modified Barium Swallow Patient: Ajit Tyler [facility] Record Number [id number] Date of : 1960 Age: [age] year [...] in conjunction with radiology using lateral views. [id number] view was unable to be obtained due [...] swallowing strategies and/or recommendations and verbalize understanding. Sander And Buffer Goal(s): Patient to tolerate least restrictive diet without complications. Plan: Patient may return for 1 visit to review recorded exam, analysis, and specific recommendations. Follow up with Dr. Aggarwal. Recommend soft diet. Swallow strategies: Small bites/sips, alternate liquids/solids. Careful JERRELL precautions. Oral hygiene at least twice each day. Almita Vo MA, CCC-MANAGER COLLEGE, [employer]-S Speech Language Pathologist Department of Otolaryngology- Head and Neck Surgery documented in this encounter Plan of Treatment Not on file documented as of this encounter Visit Diagnoses Diagnosis Oropharyngeal dysphagia- Primary Dysphagia, oropharyngeal phase S/P cervical spinal fusion Arthrodesis status Vocal cord paralysis Paralysis of vocal cords or larynx, unspecified documented in this encounter Care Teams Finishing Powder Press Operator Relationship Specialty Start Date End Date Ilan Pearson MD [address] [place] [address] PCP - General Family Medicine 05/25/19 documented as of this encounter
--- OUTSIDE RECORDS SUMMARY | 2024-02-27 12:07 | XMS_ITS | Encounter Summary ---
Author Organization [facility] Health Address [address] [place] [address] Care Team Providers Care Building And Grounds Supervisor Name Role Phone Ilan Pearson MD Primary Care Provider [phone] Encounter Details Date Type Department Care Team (Latest Contact Info) Description 05/31/2019 4:40 PM CDT - 06/06/2019 8:40 PM CDT Hospital Encounter [facility] [address] [place], [place] [id number] [place] [address] [place] [address] [place] [address] [facility] [place] [address] [facility] Direct Discharge Disposition: Inpatient Hospital Social [...] Urine 38 mmol/L 06/06/2019 6:15 PM CDT [facility] Urine URINE SPECIMEN OBTAINED BY CLEAN CATCH PROCEDURE / Unknown Collection / Unknown 06/06/2019 5:48 PM CDT 06/06/2019 5:48 PM CDT Chris Sousa MD LAB - URINE CHEMISTR Y ORDERABLES Performing Organization Address City/[facility]/ZIP Co de Phone Number [facility] [id number] [place] [phone] * POTASSIUM URINE RANDOM (06/06/2019 5:48 PM CDT) Potassium Urine 32.0 mmol/L 06/06/2019 6:15 PM CDT [facility] Urine URINE SPECIMEN OBTAINED BY CLEAN CATCH PROCEDURE / Unknown Collection / Unknown 06/06/2019 5:48 PM CDT 06/06/2019 5:48 PM CDT Chris Sousa MD LAB - URINE CHEMISTR Y ORDERABLES Performing Organization Address [facility] Co de Phone Number [facility] [address] [place] [address] * (ABNORMAL) OSMOLALITY BLOOD (06/06/2019 5:48 PM CDT) Osmolality 267(L) 280 - 300 mOsm/kg 06/06/2019 6:08 PM CDT [facility] Blood BLOOD SPECIMEN / Unknown Venipuncture / Unknown 06/06/2019 5:48 PM CDT 06/06/2019 5:48 PM CDT Chris Sousa MD LAB - CHEMISTRY ORDE RABLES Performing Organization Address [facility] Co de Phone Number [facility] [address] [place] [address] * CHLORIDE URINE RANDOM (06/06/2019 5:48 PM CDT) Chloride Urine 50.0 mmol/L 06/06/2019 6:14 PM CDT [facility] Urine URINE SPECIMEN OBTAINED BY CLEAN CATCH PROCEDURE / Unknown Collection / Unknown 06/06/2019 5:48 PM CDT 06/06/2019 5:48 PM CDT Chris Sousa MD LAB - URINE CHEMISTR Y ORDERABLES Performing Organization Address [facility] Co de Phone Number [facility] [id number] [place] [id number] * URINE MICROSCOPIC ONLY REFLEX TO CULTURE (06/06/2019 10:01 AM CDT) Reflex Status Culture not indicated 06/06/2019 11:47 AM CDT [facility] RBC UA 0-2 None Seen, 0-2, 3-5 # /hpf 06/06/2019 11:47 AM CDT [facility] WBC UA 0-5 None Seen, 0-5 # /hpf 06/06/2019 11:47 AM CDT [facility] Bacteria UA None Seen None Seen 06/06/2019 11:47 AM CDT [facility] Squamous Epithelial Cells None Seen None Seen, 0-2, 3-5 /hpf 06/06/2019 11:47 AM CDT [facility] Mucus UA 1+ /LPF 06/06/2019 11:47 AM CDT [facility] Urine URINE SPECIMEN COLLECTION, CATHETERIZED / Unknown 06/06/2019 10:01 AM CDT 06/06/2019 11:15 AM CDT Narrative [facility] - 06/06/2019 11:47 AM CDT Catalina Patricia INSURANCE VERIFICATION CLERK-FILTER CLOTH MAKER LAB - URINALYSIS ORDERABLES Performing Organization Address City/[facility]/ZIP Co de Phone Number [facility] [address] [place] [address] * C DIFFICILE GDH AG + TOXIN A+B (06/06/2019 10:01 AM CDT) GDH Antigen Negative Negative, Invalid 06/06/2019 8:49 PM CDT [facility] C difficile Toxin A + B Negative Negative, Invalid 06/06/2019 8:49 PM CDT [facility] Interpretation C difficile Negative for toxigenic C. difficile Negative for toxigenic C. difficile 06/06/2019 8:49 PM CDT [facility] Stool STOOL SPECIMEN / Unknown 06/06/2019 10:01 AM CDT 06/06/2019 11:19 AM CDT Catalina Patricia INSURANCE VERIFICATION CLERK-[facility] LAB - MICROBIOLOG Y ORDERABLES Performing Organization Address [facility] Co de Phone Number [facility] [address] [place] [address], [facility] [phone] * CULTURE STOOL+ E COLI SHIGA-LIKE TOXIN (06/06/2019 10:01 AM CDT) Culture No growth Salmonella, Shigella, Campylobacter, Escherichia coli O157:h7 or Yersinia JHOANA 06/08/2019 8:58 AM CDT [facility] Culture Negative Escherichia coli Shiga-like toxin (NM) JHOANA 06/08/2019 8:58 AM CDT [facility] Culture No normal enteric gram-negative bacilli isolated JHOANA 06/08/2019 8:58 AM CDT [facility] Stool STOOL SPECIMEN / Unknown 06/06/2019 10:01 AM CDT 06/06/2019 11:19 AM CDT Catalina Patricia INSURANCE VERIFICATION CLERK-FILTER CLOTH MAKER LAB - MICROBIOLOG Y ORDERABLES Performing Organization Address City/[facility]/ZIP Co de Phone Number [facility] [address] [place] [address], [facility] [phone] * (ABNORMAL) URINALYSIS REFLEX MICROSCOPIC REFLEX CULTURE (06/06/2019 10:01 AM CDT) Color UA Yellow Straw, Yellow 06/06/2019 11:37 AM CDT [facility] Clarity UA Clear Clear 06/06/2019 11:37 AM CDT [facility] Glucose UA Negative Negative 06/06/2019 11:37 AM CDT [facility] Bilirubin UA Negative Negative 06/06/2019 11:37 AM CDT [facility] Ketone UA Negative Negative 06/06/2019 11:37 AM CDT [facility] Specific [place] UA 1.019 1.005 - 1.030 06/06/2019 11:37 AM CDT [facility] Blood UA 1+(A) Negative 06/06/2019 11:37 AM CDT [facility] pH UA 6.0 5.0 - 8.0 pH 06/06/2019 11:37 AM CDT [facility] Protein UA Negative Negative 06/06/2019 11:37 AM CDT [facility] Urobilinogen UA Negative Negative mg/dL 06/06/2019 11:37 AM CDT [facility] Nitrite UA Negative Negative 06/06/2019 11:37 AM CDT [facility] Leukocyte UA Negative Negative 06/06/2019 11:37 AM CDT [facility] Urine Microscopy Urine microscopy to follow 06/06/2019 11:37 AM CDT [facility] Reflex Status Culture not indicated 06/06/2019 11:37 AM CDT [facility] Urine URINE SPECIMEN COLLECTION, CATHETERIZED / Unknown 06/06/2019 10:01 AM CDT 06/06/2019 11:15 AM CDT Narrative [facility] - 06/06/2019 11:37 AM CDT Catalina Patricia INSURANCE VERIFICATION CLERK-FILTER CLOTH MAKER LAB - URINALYSIS ORDERABLES [facility] [address] [place] [address] * CULTURE BLOOD (06/06/2019 10:01 AM CDT) Culture No growth day 5 JHOANA 06/11/2019 1:31 PM CDT [facility] Blood (Arm, Left) 06/06/2019 10:01 AM CDT 06/06/2019 11:19 AM CDT Catalina Patricia APRN-FILTER CLOTH MAKER LAB - MICROBIOLOG Y ORDERABLES [facility] [address] [place] [address], [facility] [phone] * CULTURE BLOOD (06/06/2019 10:01 AM CDT) Pathologist [facility] Culture No growth day 5 JHOANA 06/11/2019 1:[address] [facility] Blood (Arm, Left) 06/06/2019 10:01 AM CDT 06/06/2019 11:19 AM CDT Catalina Patricia APRN-[facility] LAB - MICROBIOLOG Y ORDERABLES Performing Organization Address [facility] de Phone Number [facility] [address] [place] [address], [facility] [phone] * (ABNORMAL) CBC W/O DIFFERENTIAL (06/06/2019 4:20 [...] - 416 x10E9/L 06/06/2019 6:51 AM CDT [facility] RDW-CV 12.9 12.1 - 14.9 % 06/06/2019 6:51 AM CDT [facility] MPV 9.9 9.4 - 12.9 fl 06/06/2019 6:51 AM CDT [facility] Blood BLOOD SPECIMEN / Unknown 06/06/2019 4:20 AM CDT 06/06/2019 6:31 AM CDT Toya Stearns MD LAB - HEMATOLOGY ORD ERABLES [facility] [address] [place] [address] * (ABNORMAL) BASIC METABOLIC PANEL (CALCIUM TOTAL) (06/06/2019 4:20 AM CDT) Glucose 95 70 - 105 mg/dL 06/06/2019 7:03 AM T [facility] Sodium 130(L) 136 - 145 mmol/L 06/06/2019 7:03 AM T [facility] Potassium 3.1(L) 3.5 - 5.1 mmol/L 06/06/2019 7:03 AM T [facility] Chloride 94(L) 98 - 107 mmol/L 06/06/2019 7:03 AM T [facility] CO2 26 23 - 31 mmol/L 06/06/2019 7:03 AM T [facility] Calcium 8.0(L) 8.4 - 10.4 mg/dL 06/06/2019 7:03 AM T [facility] Anion Gap 10 8 - 16 mmol/L 06/06/2019 7:03 AM CDT [facility] BUN 13 8.4 - 25.7 mg/dL 06/06/2019 7:03 AM T [facility] Creatinine 0.71(L) 0.72 - 1.25 mg/dL 06/06/2019 7:03 AM T [facility] eGFR by MDRD >60 >60 mL/min/1.7 3m2 06/06/2019 7:03 AM CDT [facility] eGFR by MDRD >60 >60 mL/min/1.7 3m2 06/06/2019 7:03 AM CDT [facility] Blood BLOOD SPECIMEN / Unknown 06/06/2019 4:20 AM CDT 06/06/2019 6:31 AM CDT Toya Stearns MD LAB - CHEMISTRY ALEXIS DEVRIES Performing Organization Address [facility] Co de Phone Number [facility] [address] [place], [place] [phone] * URINE MICROSCOPIC ONLY REFLEX TO CULTURE (06/05/2019 12:24 PM CDT) Reflex Status Culture not indicated 06/05/2019 3:20 PM CDT [facility] RBC UA 0-2 None Seen, 0-2, 3-5 # /hpf 06/05/2019 3:20 PM CDT [facility] WBC UA 0-5 None Seen, 0-5 # /hpf 06/05/2019 3:20 PM CDT [facility] Bacteria UA None Seen None Seen 06/05/2019 3:20 PM CDT [facility] Squamous Epithelial Cells None Seen None Seen, 0-2, 3-5 /hpf 06/05/2019 3:20 PM CDT [facility] Urine URINE SPECIMEN COLLECTION, CATHETERIZED / Unknown 06/05/2019 12:24 PM CDT 06/05/2019 2:56 PM CDT Narrative [facility] - 06/05/2019 3:20 PM CDT Toma Mcfarlane APRN-FILTER CLOTH MAKER LAB - URINALYSIS ORDERABLES Performing Organization Address [facility] Co de Phone Number [facility] [address] [place] [address] * (ABNORMAL) URINALYSIS REFLEX MICROSCOPIC REFLEX CULTURE (06/05/2019 12:24 PM CDT) Color UA Colorless(A) Straw, Yellow 06/05/2019 3:06 PM CDT [facility] Clarity UA Clear Clear 06/05/2019 3:06 PM CDT [facility] Glucose UA Negative Negative 06/05/2019 3:06 PM CDT [facility] Bilirubin UA Negative Negative 06/05/2019 3:06 PM CDT [facility] Ketone UA Negative Negative 06/05/2019 3:06 PM CDT [facility] Specific [place] UA 1.003(L) 1.005 - 1.030 06/05/2019 3:06 PM CDT [facility] Blood UA 1+(A) Negative 06/05/2019 3:06 PM CDT [facility] pH UA 6.0 5.0 - 8.0 pH 06/05/2019 3:06 PM CDT [facility] Protein UA Negative Negative 06/05/2019 3:06 PM CDT [facility] Urobilinogen UA Negative Negative mg/dL 06/05/2019 3:06 PM CDT [facility] Nitrite UA Negative Negative 06/05/2019 3:06 PM CDT [facility] Leukocyte UA Negative Negative 06/05/2019 3:06 PM CDT [facility] Urine Microscopy Urine microscopy to follow 06/05/2019 3:06 PM CDT [facility] Reflex Status Culture not indicated 06/05/2019 3:06 PM CDT [facility] Urine URINE SPECIMEN COLLECTION, CATHETERIZED / Unknown 06/05/2019 12:24 PM CDT 06/05/2019 2:56 PM CDT Narrative [facility] - 06/05/2019 3:06 PM CDT Toma Mcfarlane APRN-FILTER CLOTH MAKER LAB - URINALYSIS ORDERABLES [facility] [address] [place] [address] * (ABNORMAL) URINALYSIS REFLEX MICROSCOPIC REFLEX CULTURE (06/02/2019 8:13 PM CDT) Color UA Yellow Straw, Yellow 06/02/2019 8:51 PM CDT [facility] Clarity UA Clear Clear 06/02/2019 8:51 PM CDT [facility] Glucose UA Negative Negative 06/02/2019 8:51 PM CDT [facility] Bilirubin UA Negative Negative 06/02/2019 8:51 PM CDT [facility] Ketone UA Trace(A) Negative 06/02/2019 8:51 PM CDT [facility] Specific [place] UA 1.028 1.005 - 1.030 06/02/2019 8:51 PM CDT [facility] Blood UA Negative Negative 06/02/2019 8:51 PM CDT [facility] pH UA 5.0 5.0 - 8.0 pH 06/02/2019 8:51 PM CDT [facility] Protein UA Negative Negative 06/02/2019 8:51 PM CDT [facility] Urobilinogen UA Negative Negative mg/dL 06/02/2019 8:51 PM CDT [facility] Nitrite UA Negative Negative 06/02/2019 8:51 PM CDT [facility] Leukocyte UA Negative Negative 06/02/2019 8:51 PM CDT [facility] Urine Microscopy Urine microscopy not indicated 06/02/2019 8:51 PM CDT [facility] Reflex Status Culture not indicated 06/02/2019 8:51 PM CDT [facility] Urine URINE SPECIMEN OBTAINED BY CLEAN CATCH PROCEDURE / Unknown Collection / Unknown 06/02/2019 8:13 PM CDT 06/02/2019 8:45 PM CDT Narrative [facility] - 06/02/2019 8:51 PM CDT Toma Mcfarlane INSURANCE VERIFICATION CLERK-FILTER CLOTH MAKER LAB - URINALYSIS ORDERABLES Performing Organization Address City/State/[facility] Co de Phone Number [facility] [address] [place] [address] * (ABNORMAL) CBC W/O DIFFERENTIAL (06/02/2019 5:10 AM CDT) WBC 11.8(H) 4.4 - 10.7 x10E9/L 06/02/2019 7:01 AM CDT [facility] RBC 4.04 3.80 - 5.40 x10E12/L 06/02/2019 7:01 AM CDT [facility] Hemoglobin 11.0(L) 12.0 - 17.6 gm/dL 06/02/2019 7:01 AM CDT [facility] Hematocrit 33.9(L) 35.2 - 51.7 % 06/02/2019 7:01 AM CDT [facility] MCV 83.9 80.7 - 98.3 fl 06/02/2019 7:01 AM CDT [facility] MCH 27.2 26.7 - 34.0 pg 06/02/2019 7:01 AM CDT [facility] MCHC 32.4 30.8 - 35.9 gm/dL 06/02/2019 7:01 AM CDT [facility] Platelet Count 372 153 - 416 x10E9/L 06/02/2019 7:01 AM CDT [facility] RDW-CV 12.5 12.1 - 14.9 % 06/02/2019 7:01 AM CDT [facility] MPV 10.2 9.4 - 12.9 fl 06/02/2019 7:01 AM CDT [facility] Blood BLOOD SPECIMEN / Unknown 06/02/2019 5:10 AM CDT 06/02/2019 6:45 AM CDT Toya Stearns MD LAB - HEMATOLOGY ORD ERABLES [facility] [address] [place] [address] * (ABNORMAL) BASIC METABOLIC PANEL (CALCIUM TOTAL) (06/02/2019 5:10 AM CDT) Glucose 84 70 - 105 mg/dL 06/02/2019 7:30 AM T [facility] Sodium 132(L) 136 - 145 mmol/L 06/02/2019 7:30 AM T [facility] Potassium 3.5 3.5 - 5.1 mmol/L 06/02/2019 7:30 AM T [facility] Chloride 96(L) 98 - 107 mmol/L 06/02/2019 7:30 AM T [facility] CO2 26 23 - 31 mmol/L 06/02/2019 7:30 AM T [facility] Calcium 8.5 8.4 - 10.4 mg/dL 06/02/2019 7:30 AM T [facility] Anion Gap 10 8 - 16 mmol/L 06/02/2019 7:30 AM T [facility] BUN 20 8.4 - 25.7 mg/dL 06/02/2019 7:30 AM T [facility] Creatinine 0.70(L) 0.72 - 1.25 mg/dL 06/02/2019 7:30 AM T [facility] eGFR by MDRD >60 >60 mL/min/1.7 3m2 06/02/2019 7:30 AM T [facility] eGFR by MDRD >60 >60 mL/min/1.7 3m2 06/02/2019 7:30 AM CDT [facility] Blood BLOOD SPECIMEN / Unknown 06/02/2019 5:10 AM CDT 06/02/2019 6:45 AM CDT Toya Stearns MD LAB - CHEMISTRY ALEXIS DEVRIES Performing Organization Address [facility] de Phone Number [facility] [address] [place] [phone] * (ABNORMAL) FERRITIN (06/01/2019 3:59 AM CDT) Ferritin 292(H) 22 - 275 ng/mL 06/01/2019 10:47 PM CDT [facility] Blood BLOOD SPECIMEN / Unknown Venipuncture / Unknown 06/01/2019 3:59 AM CDT 06/01/2019 10:14 PM CDT Chris Sousa MD LAB - CHEMISTRY ALEXIS DEVRIES Performing Organization Address [facility] de Phone Number [facility] [address] [place] [phone] * (ABNORMAL) IRON + TRANSFERRIN PANEL (06/01/2019 3:59 AM CDT) Iron 37(L) 65 - 175 ug/dL 06/01/2019 10:27 PM CDT [facility] Transferrin 162(L) 174 - 364 mg/dL 06/01/2019 10:27 PM CDT [facility] TIBC Calculated 203(L) 240 - 450 ug/ml 06/01/2019 10:27 PM CDT [facility] Iron Saturation % 18(L) 20 - 50 % 06/01/2019 10:27 PM CDT [facility] Blood BLOOD SPECIMEN / Unknown Venipuncture / Unknown 06/01/2019 3:59 AM CDT 06/01/2019 10:14 PM CDT Chris Sousa MD LAB - CHEMISTRY ALEXIS DEVRIES Performing Organization Address [facility] de Phone Number [facility] [address] [place] [phone] * (ABNORMAL) CBC W/O DIFFERENTIAL (06/01/2019 3:59 AM CDT) Pathologist [facility] WBC 10.6 4.4 - 10.7 x10E9/L 06/01/2019 11:26 AM CDT [facility] RBC 3.93 3.80 - 5.40 x10E12/L 06/01/2019 11:26 AM CDT [facility] Hemoglobin 10.9(L) 12.0 - 17.6 gm/dL 06/01/2019 11:26 AM CDT [facility] Hematocrit 33.5(L) 35.2 - 51.7 % 06/01/2019 11:26 AM CDT [facility] MCV 85.2 80.7 - 98.3 fl 06/01/2019 11:26 AM CDT [facility] MCH 27.7 26.7 - 34.0 pg 06/01/2019 11:26 AM CDT [facility] MCHC 32.5 30.8 - 35.9 gm/dL 06/01/2019 11:26 AM CDT [facility] Platelet Count 350 153 - 416 x10E9/L 06/01/2019 11:26 AM CDT [facility] RDW-CV 12.7 12.1 - 14.9 % 06/01/2019 11:26 AM CDT [facility] MPV 10.8 9.4 - 12.9 fl 06/01/2019 11:26 AM CDT [facility] Blood BLOOD SPECIMEN / Unknown 06/01/2019 3:59 AM CDT 06/01/2019 11:14 AM CDT Toya Stearns MD LAB - HEMATOLOGY ORD ERABLES [facility] [address] [place] [address] * (ABNORMAL) BASIC METABOLIC PANEL (CALCIUM TOTAL) (06/01/2019 3:59 AM CDT) Pathologist [facility] Glucose 82 70 - 105 mg/dL 06/01/2019 11:44 AM CDT [facility] Sodium 132(L) 136 - 145 mmol/L 06/01/2019 11:44 AM CDT [facility] Potassium 4.8 3.5 - 5.1 mmol/L 06/01/2019 11:44 AM CDT [facility] Chloride 97(L) 98 - 107 mmol/L 06/01/2019 11:44 AM CDT [facility] CO2 25 23 - 31 mmol/L 06/01/2019 11:44 AM CDT [facility] Calcium 8.4 8.4 - 10.4 mg/dL 06/01/2019 11:44 AM CDT [facility] Anion Gap 10 8 - 16 mmol/L 06/01/2019 11:44 AM CDT [facility] BUN 19 8.4 - 25.7 mg/dL 06/01/2019 11:44 AM CDT [facility] Creatinine 0.75 0.72 - 1.25 mg/dL 06/01/2019 11:44 AM CDT [facility] eGFR by MDRD >60 >60 mL/min/1.7 3m2 06/01/2019 11:44 AM CDT [facility] eGFR by MDRD >60 >60 mL/min/1.7 3m2 06/01/2019 11:44 AM CDT [facility] Blood BLOOD SPECIMEN / Unknown 06/01/2019 3:59 AM CDT 06/01/2019 11:14 AM CDT Toya Stearns MD LAB - CHEMISTRY ALEXIS DEVRIES [facility] Organization Address City/State/ZIP Co de Phone Number [facility] [address] [place] [phone] documented in this encounter Visit Diagnoses Not on filedocumented in this encounter Additional Health Concerns Infection Onset Date Last Indicated Resolved Time COVID-19 Under Investigation 06/06/2019 06/07/2019 06/07/2019 6:09 AM CDT documented as of this encounter Care Teams Building And Grounds Supervisor Relationship Specialty Start Date End Date Ilan Pearson MD [address] [place] [id number] PCP - General Family Medicine 05/25/19 documented as of this encounter
--- OUTSIDE RECORDS SUMMARY | 2024-02-27 12:07 | XMS_ITS | Encounter Summary ---
Author Organization [facility] Address [address] [place] [address] Care Team Providers Care Barbed Wire Machine Operator Name Role Phone Ilan Pearson MD Primary Care Provider [phone] Reason for Visit * Reason Comments Shortness of Breath arrives via ems from rehab facility with fever and shortness of breath recieved tylenol at 1430 Encounter Details Date Type Department Care Team (Late st Contact Info) Description 06/06/2019 4:23 PM CDT - 06/06/2019 11:30 PM CDT Emergency ER at [address] [address] Patsy Tuttle MD [address] [place] [address] [place]ER[place] [address] SOB (shortness of breath); Fever, [...] 06/06/2019 11:11 PM CDT Report given to [facility] EMS crew. Yenni at [facility] notified of pt departure. Pt A&Ox4 VS [...] PM CDT [facility] contacted for transport Trip #[id number] * French Zuluaga RN - 06/06/2019 9:43 [...] - 06/06/2019 5:38 PM CDT Ajit Tyler [id number] [facility] History Chief Complaint Patient presents with ??? Shortness of Breath arrives via ems from rehab facility with fever and shortness of breath recieved tylenol at 1430 HPI Ajit Tyler is a 59 year old male, history of SENIOR CARE, traumatic spinal cord injury, quadriplegic, presents due [...] file Gets together: Not on file Attends rastafarian service: Not on file Active member of [...] Admit for further management, abx Transfer to [facility], agree with plan Orders Placed This [...] 3-5 # /hpf 06/06/2019 9:10 PM CDT [facility] WBC UA 0-5 None Seen, 0-5 # /hpf 06/06/2019 9:10 PM CDT [facility] Bacteria UA None Seen None Seen 06/06/2019 9:10 PM CDT [facility] Squamous Epithelial Cells None Seen None Seen, 0-2, 3-5 /hpf 06/06/2019 9:10 PM CDT [facility] Urine URINE SPECIMEN OBTAINED VIA INDWELLING URINARY CATHETER / Unknown Collection / Unknown 06/06/2019 8:57 PM CDT 06/06/2019 9:01 PM CDT Narrative [facility] - 06/06/2019 9:10 PM CDT Patsy Tuttle MD LAB - URINALYSIS ORD ERABLES [facility] [address] [place] [address] * (ABNORMAL) URINALYSIS REFLEX MICROSCOPIC REFLEX CULTURE (06/06/2019 8:57 PM CDT) Color UA Straw Straw, Yellow 06/06/2019 9:08 PM CDT [facility] Clarity UA Clear Clear 06/06/2019 9:08 PM CDT [facility] Glucose UA Negative Negative 06/06/2019 9:08 PM CDT [facility] Bilirubin UA Negative Negative 06/06/2019 9:08 PM CDT [facility] Ketone UA Negative Negative 06/06/2019 9:08 PM CDT [facility] Specific Excello UA 1.004(L) 1.005 - 1.030 06/06/2019 9:08 PM CDT [facility] Blood UA 1+(A) Negative 06/06/2019 9:08 PM CDT [facility] pH UA 6.0 5.0 - 8.0 pH 06/06/2019 9:08 PM CDT [facility] Protein UA Negative Negative 06/06/2019 9:08 PM CDT [facility] Urobilinogen UA Negative Negative mg/dL 06/06/2019 9:08 PM CDT [facility] Nitrite UA Negative Negative 06/06/2019 9:08 PM CDT [facility] Leukocyte UA Negative Negative 06/06/2019 9:08 PM CDT [facility] Urine Microscopy Urine microscopy to follow 06/06/2019 9:08 PM CDT [facility] Reflex Status Culture not indicated 06/06/2019 9:08 PM CDT [facility] Urine URINE SPECIMEN OBTAINED VIA [employer]WELLING URINARY CATHETER / Unknown Collection / Unknown 06/06/2019 8:57 PM CDT 06/06/2019 9:01 PM CDT Narrative [facility] - 06/06/2019 9:08 PM CDT Patsy Tuttle MD LAB - URINALYSIS ORD ERABLES [facility] [address] [place] [address] * TROPONIN I (06/06/2019 8:34 PM CDT) Troponin I <0.010 <0.038 ng/mL 06/06/2019 9:01 PM CDT [facility] Blood BLOOD SPECIMEN / Unknown Venipuncture / Unknown 06/06/2019 8:34 PM CDT 06/06/2019 8:37 PM CDT Patsy Tuttle MD LAB - CHEMISTRY JULIENBlanca MESSINAKIA Performing Organization Address City/[facility]/ZIP Co de Phone Number [facility] [address] [place] [address] * XR CHEST 1VW PORTABLE (06/06/2019 5:05 [...] day 5 JHOANA 06/11/2019 9:[address] [facility] Blood PERIPHERAL BLOOD / Unknown Venipuncture / Unknown 06/06/2019 4:49 PM CDT 06/06/2019 5:04 PM CDT Patsy Tuttle MD LAB - MICROBIOLOGY [facility] [address] [place] [address] [phone] * (ABNORMAL) LACTIC ACID BLOOD (06/06/2019 4:48 PM CDT) Pathologist [facility] Lactic Acid 0.48(L) 0.5 - 2.2 mmol/L 06/06/2019 5:17 PM CDT [facility] Blood BLOOD SPECIMEN / Unknown Venipuncture / Unknown 06/06/2019 4:48 PM CDT 06/06/2019 5:04 PM CDT Patsy Tuttle MD LAB - CHEMISTRY ALEXIS DEVRIES Performing Organization Address [facility]/ZIP Co de Phone Number [facility] [address] [place] [phone] * B-TYPE NATRIURETIC PEPTIDE (06/06/2019 4:48 PM CDT) [facility] BNP 23 <=100 pg/mL 06/06/2019 5:27 PM CDT [facility] Blood BLOOD SPECIMEN / Unknown Venipuncture / Unknown 06/06/2019 4:48 PM CDT 06/06/2019 5:01 PM CDT Patsy Tuttle MD LAB - CHEMISTRY ALEXIS DEVRIES Performing Organization Address [facility]/ZIP Co de Phone Number [facility] [address] [place] [phone] * (ABNORMAL) INTERLEUKIN-6 (06/06/2019 4:48 PM CDT) Pathologist [facility] IL-6 17.9(H) 0.0 - 15.5 pg/mL 06/09/2019 3:07 PM CDT [facility] ([facility]) Comment: Results for this test are for research purposes only by the assay's tag maker. ??The performance characteristics of this product have not been established. ??Results should not be used as a diagnostic procedure without confirmation of the diagnosis by another medically established diagnostic product or procedure. Blood BLOOD SPECIMEN / Unknown Venipuncture / Unknown 06/06/2019 4:48 PM CDT 06/06/2019 5:01 PM CDT Narrative [facility] ([facility]) - 06/09/2019 3:07 PM CDT Performed at: ??01 - [facility] [address] ??[id number] Hoisting Engineer: Rocío Allison MD, Phone: ??[phone] Patsy Tuttle MD LAB - CHEMISTRY ALEXIS DEVRIES Performing Organization Address City/[facility]/ZIP Co de Phone Number [facility] ([facility]) [address] [place] [address] * (ABNORMAL) C-REACTIVE PROTEIN (06/06/2019 4:48 PM CDT) C-Reactive Protein 7.90(H) <=0.50 mg/dL 06/06/2019 5:20 PM CDT [facility] Blood BLOOD SPECIMEN / Unknown Venipuncture / Unknown 06/06/2019 4:48 PM CDT 06/06/2019 5:01 PM CDT Patsy Tuttle MD LAB - CHEMISTRY ALEXIS DEVRIES Performing Organization Address [facility] Co de Phone Number [facility] [address] [place] [address] * FERRITIN (06/06/2019 4:48 PM CDT) Ferritin 258 22 - 275 ng/mL 06/06/2019 5:42 PM CDT [facility] Blood BLOOD SPECIMEN / Unknown Venipuncture / Unknown 06/06/2019 4:48 PM CDT 06/06/2019 5:01 PM CDT Patsy Tuttle MD LAB - CHEMISTRY ALEXIS DEVRIES Performing Organization Address [facility] Co de Phone Number [facility] [address] [place] [address] * (ABNORMAL) LDH BLOOD (06/06/2019 4:48 PM CDT) LDH 232(H) 125 - 220 U/L 06/06/2019 5:20 PM CDT [facility] Blood BLOOD SPECIMEN / Unknown Venipuncture / Unknown 06/06/2019 4:48 PM CDT 06/06/2019 5:01 PM CDT Patsy Tuttle MD LAB - CHEMISTRY ALEXIS DEVRIES Performing Organization Address [facility] Co de Phone Number [facility] [address] [place] [phone] * TROPONIN I (06/06/2019 4:48 PM CDT) Troponin I <0.010 <0.038 ng/mL 06/06/2019 5:28 PM CDT [facility] Blood BLOOD SPECIMEN / Unknown Venipuncture / Unknown 06/06/2019 4:48 PM CDT 06/06/2019 5:01 PM CDT Patsy Tuttle MD LAB - CHEMISTRY ALEXIS DEVRIES Performing Organization Address [facility] de Phone Number [facility] [address] [place] [address] * PTT (06/06/2019 4:48 PM CDT) PTT 38.1 23.0 - 38.4 sec 06/06/2019 5:21 PM CDT [facility] Blood BLOOD SPECIMEN / Unknown Venipuncture / Unknown 06/06/2019 4:48 PM CDT 06/06/2019 5:01 PM CDT Narrative [facility] - 06/06/2019 5:21 PM CDT Heparin Therapeutic Range for PTT: ??71.0 - 109.0 seconds. Patsy Tuttle MD LAB - COAGULATION OR DERABLES Performing Organization Address [facility] Co de Phone Number [facility] [address] [place] [address] * (ABNORMAL) PT-INR (06/06/2019 4:48 PM CDT) PT 14.6 12.1 - 14.8 sec 06/06/2019 5:20 PM CDT [facility] INR 1.2(H) 0.9 - 1.1 06/06/2019 5:20 PM CDT [facility] Blood BLOOD SPECIMEN / Unknown Venipuncture / Unknown 06/06/2019 4:48 PM CDT 06/06/2019 5:01 PM CDT Narrative [facility] - 06/06/2019 5:20 PM CDT Conventional Warfarin Anticoagulant Therapy: INR Reference Range: ??2.0-3.0 Intensive Warfarin Anticoagulant Therapy: INR Reference Range: ? 2.5-3.5 Patsy Tuttle MD LAB - COAGULATION OR DERABLES [facility] [address] [place] [address] * PROCALCITONIN LEVEL (06/06/2019 4:48 PM CDT) Procalcitonin 0.06 <0.10 ng/mL 06/06/2019 5:42 PM CDT [facility] Blood BLOOD SPECIMEN / Unknown Venipuncture / Unknown 06/06/2019 4:48 PM CDT 06/06/2019 5:01 PM CDT Narrative [facility] - 06/06/2019 5:42 PM CDT The [...] Change in Procalcitonin Calculator is available at [email or web address] ?? If clinical picture has not improved and PCT remains high, reevaluate and consider treatment failure or other causes. Patsy Tuttle MD LAB - CHEMISTRY ALEXIS DEVRIES Performing Organization Address [facility]/ZIP Co de Phone Number [facility] [address] [place] [address] * CK BLOOD (06/06/2019 4:48 PM CDT) [facility] CK 74 30 - 200 U/L 06/06/2019 5:20 PM CDT [facility] Blood BLOOD SPECIMEN / Unknown Venipuncture / Unknown 06/06/2019 4:48 PM CDT 06/06/2019 5:01 PM CDT Patsy Tuttle MD LAB - CHEMISTRY ALEXIS DEVRIES Performing Organization Address [facility] Co de Phone Number [facility] [address] [place] [address] * (ABNORMAL) COMPREHENSIVE METABOLIC PANEL (06/06/2019 4:48 PM CDT) [facility] Glucose 103 70 - 105 mg/dL 06/06/2019 5:20 PM CDT [facility] Sodium 126(L) 136 - 145 mmol/L 06/06/2019 5:20 PM CDT [facility] Potassium 2.7(L) 3.5 - 5.1 mmol/L 06/06/2019 5:20 PM CDT [facility] Chloride 92(L) 98 - 107 mmol/L 06/06/2019 5:20 PM CDT [facility] CO2 23 23 - 31 mmol/L 06/06/2019 5:20 PM CDT [facility] Calcium 7.8(L) 8.4 - 10.4 mg/dL 06/06/2019 5:20 PM CDT [facility] Anion Gap 11 8 - 16 mmol/L 06/06/2019 5:20 PM CDT [facility] BUN 14 8.4 - 25.7 mg/dL 06/06/2019 5:20 PM CDT [facility] Creatinine 0.69(L) 0.72 - 1.25 mg/dL 06/06/2019 5:20 PM CDT [facility] Alkaline Phosphatase 107 40 - 150 U/L 06/06/2019 5:20 PM CDT [facility] ALT 47 0 - 61 U/L 06/06/2019 5:20 PM CDT [facility] AST 46(H) 5 - 34 U/L 06/06/2019 5:20 PM CDT [facility] Protein Total 6.0(L) 6.4 - 8.3 gm/dL 06/06/2019 5:20 PM CDT [facility] Albumin 3.2(L) 3.5 - 5.2 gm/dL 06/06/2019 5:20 PM CDT [facility] Bilirubin Total 0.4 0.2 - 1.2 mg/dL 06/06/2019 5:20 PM CDT [facility] eGFR by MDRD >60 >60 mL/min/1.7 3m2 06/06/2019 5:20 PM CDT [facility] eGFR by MDRD >60 >60 mL/min/1.7 3m2 06/06/2019 5:20 PM CDT [facility] Blood BLOOD SPECIMEN / Unknown Venipuncture / Unknown 06/06/2019 4:48 PM CDT 06/06/2019 5:01 PM CDT Patsy Tuttle MD LAB - CHEMISTRY [facility] Organization Address City/State/ZIP Co de Phone Number [facility] [address] [place] [address] * (ABNORMAL) CBC W AUTO DIFFERENTIAL (06/06/2019 4:48 PM CDT) WBC 18.1(H) 4.4 - 10.7 x10E9/L 06/06/2019 5:05 PM CDT [facility] WBC Corrected 06/06/2019 5:05 PM CDT [...] - 12.9 fl 06/06/2019 5:05 PM CDT [facility] Neutrophils % 78.3(H) 44.0 - 73.0 [...] - 3.94 x10E9/L 06/06/2019 5:05 PM CDT [facility] Monocytes Absolute 1.26(H) 0.26 - 1.07 x10E9/L 06/06/2019 5:05 PM CDT [facility] Eosinophils Absolute 0.03 0 - 0.47 x10E9/L 06/06/2019 5:05 PM CDT [facility] Basophils Absolute 0.07 0 - 0.08 x10E9/L 06/06/2019 5:05 PM CDT [facility] Immature Granulocytes Absolute 0.45(H) 0.00 - 0.06 x10E9/L 06/06/2019 5:05 PM CDT [facility] nRBC Auto 0 /100 WBC 06/06/2019 5:05 PM CDT [facility] Blood BLOOD SPECIMEN / Unknown Venipuncture / Unknown 06/06/2019 4:48 PM CDT 06/06/2019 5:01 PM CDT Patsy Tuttle MD LAB - HEMATOLOGY ORD ERABLES Performing Organization Address City/[facility]/ZIP Co de Phone Number [facility] [address] [place] [phone] * CULTURE BLOOD (06/06/2019 4:48 PM CDT) [facility] Culture No growth day 5 JHOANA 06/11/2019 9:[address] [facility] Blood PERIPHERAL BLOOD / Unknown Venipuncture / Unknown 06/06/2019 4:48 PM CDT 06/06/2019 5:03 PM CDT Ptasy Tuttle MD LAB - MICROBIOLOGY O RDERABLES Performing Organization Address City/[facility]/ZIP Co de Phone Number [facility] [address] [phone] * EKG 12-LEAD (06/06/2019 4:27 PM CDT) Ventricular Rate 67 BPM [facility] Atrial Rate 67 BPM [facility] P-R Interval 156 ms [facility] QRS Duration ms 86 ms [facility] Q-T Interval ms 462 ms [facility] QTC Calculation (Bezet) 488 ms [facility] Calculated P Dana 35 degrees [facility] Calculated R Dana 23 degrees [facility] Calculated T Dana -5 degrees [facility] Interpretation EKG Normal [...] documented as of this encounter Care Teams Barbed Wire Machine Operator Relationship Specialty Start Date End Date Ilan Pearson MD [address] [place] [phone] PCP - General Family Medicine 05/25/19 documented as of this encounter
--- OUTSIDE RECORDS SUMMARY | 2024-02-27 12:07 | XMS_ITS | Encounter Summary ---
Author Organization [facility] Address [address] [facility] [place] [address] Care Team Providers Care Stem Dryer Maintainer Name Role Phone Ilan Pearson MD Primary Care Provider [phone] Reason for Visit * Radiology Services (Routine) - Closed Specialty Diagnoses / Procedures Referred By Contac t Referred To Contact Fluoroscopy Diagnoses Dysphagia, unspecified type Procedures FL SWALLOWING FUNCTION STUDY Ernesto Aggarwal MD [address] [place] [address] Referral ID Status Reason Start Date Expiration Date Visits Re quested Visits Authorized [id number] Closed 09/22/2019 09/21/2020 1 1 Encounter Details Date Type Department Care Team (Latest Contact Info) Description 11/14/2019 12:32 PM CDT - 11/14/2019 11:59 PM T Hospital Encounter [facility] [address] [place] [address] Ernesto Aggarwal MD [address] [place] [address] Discharge Disposition: Home or Self Care Social [...] mL documented in this encounter Care Teams Stem Dryer Maintainer Relationship Specialty Start Date End Date Ilan Pearson MD [address] [place], [place] [phone] PCP - General Family Medicine 05/25/19 documented as of this encounter
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
--- OUTSIDE RECORDS SUMMARY | 2024-02-27 12:07 | XMS_ITS | Encounter Summary ---
Author Organization [facility] Health Address [address] [place] [address] Care Team Providers Care Diagnostic Radiologist Name Role Phone Ilan Pearson MD Primary Care Provider [phone] Reason for Visit * Reason Comments Throat Problem Encounter Details Date Type Department Care Team (Late st Contact Info) Description 01/10/2020 11:15 AM INDUSTRIAL ILLUMINATING ENGINEER Office Visit [facility] [address] [place] [phone] Ernesto Aggarwal MD [address] [place] [address] [place] [address] Dysphagia, unspecified type (Primary Dx) Social History [...] Comments Blood Pressure 103/70 01/10/2020 11:38 AM INDUSTRIAL ILLUMINATING ENGINEER Pulse 79 01/10/2020 11:38 AM INDUSTRIAL ILLUMINATING ENGINEER Temperature 36.1 ??C (97 ??F) 01/10/2020 11:38 AM INDUSTRIAL ILLUMINATING ENGINEER Respiratory Rate - - Oxygen Saturation - - Inhaled Oxygen Concentration - - Weight 69.4 kg (153 lb) 01/10/2020 11:38 AM INDUSTRIAL ILLUMINATING ENGINEER Height 182.9 cm (6') 01/10/2020 11:38 AM INDUSTRIAL ILLUMINATING ENGINEER Body Mass Index 20.75 01/10/2020 11:38 AM INDUSTRIAL ILLUMINATING ENGINEER documented in this encounter Functional Status [...] Natali Piedra RN - 01/10/2020 12:19 PM INDUSTRIAL ILLUMINATING ENGINEER For questions before next appointment, send a message to Dr. Aggarwal or Almita Vo through [employer], Or call our nurse line: [phone]. STRIAL ILLUMINATING ENGINEER documented in this encounter Progress Notes [...] asymmetry, or inflammation Septum: Good alignment Turbinates: [place], non-edematous, without discharge Mucosa: [place], healthy appearing Oral Cavity: No perioral or [...] Procedure Note Endoscopy Type: Laryngoscopy without stroboscopy 14263 Endoscope: Flexible 4mm Scope Anesthesia: Lidocaine 2% [...] patient will follow-up with me in 6weeks. STRIAL ILLUMINATING ENGINEER * Echo Chandler - 01/10/2020 11:36 AM CST Review of Systems [facility] reports the following:Throat: hoarse voice, voice changes, pain or difficulty swallowing, frequent soreness or swelling tender to the touch STRIAL ILLUMINATING ENGINEER documented in this encounter Procedure Notes * Ernesto Aggarwal MD - 01/10/2020 1:11 PM CSTAssociated Order(s): PROC ENDOSCOPY-LARYNX Procedure(s): PA LARYNGOSCOPY,FLEX FIBER,DIAGNOSTIC Pre-Procedure Diagnose(s): Dysphagia, unspecified type Procedure Note Endoscopy Type: Laryngoscopy without stroboscopy 77737 Endoscope: Flexible 4mm Scope Anesthesia: Lidocaine 2% [...] present for the entirety of the procedure. STRIAL ILLUMINATING ENGINEER documented in this encounter Plan of Treatment Not on file documented as of this encounter Procedures Procedure Name Priority Date/Time Associated Diagnosis Comments PA LARYNGOSCOPY,FLEX FIBER,DIAGNOSTIC Routine 01/10/2020 1:11 PM INDUSTRIAL ILLUMINATING ENGINEER Dysphagia, unspecified type documented in this encounter Results * PA LARYNGOSCOPY,FLEX FIBER,DIAGNOSTIC (01/10/2020 1:11 PM INDUSTRIAL ILLUMINATING ENGINEER) Narrative Ernesto Aggarwal MD - 01/10/2020 1:11 PM INDUSTRIAL ILLUMINATING ENGINEER Ernesto Aggarwal MD ? 01/10/2020 ??1:12 PM Procedure Note Endoscopy Type: ??Laryngoscopy without stroboscopy 52671 Endoscope: Flexible 4mm Scope Anesthesia: Lidocaine 2% [...] Primary documented in this encounter Care Teams Diagnostic Radiologist Relationship Specialty Start Date End Date Ilan Pearson MD [address] [place] [id number] PCP - General Family Medicine 05/25/19 documented as of this encounter
--- OUTSIDE RECORDS SUMMARY | 2024-02-27 12:07 | XMS_ITS | Encounter Summary ---
Author Organization [facility] Health Address [address] [place] [address] Care Team Providers Care Owner Operator Name Role Phone Ilan Pearson MD Primary Care Provider [phone] Encounter Details Date Type Department Care Team [...] on filedocumented in this encounter Care Teams Owner Operator Relationship Specialty Start Date End Date Ilan Pearson MD [address] [place] [id number] PCP - General Family Medicine 05/25/19 documented as of this encounter
--- OUTSIDE RECORDS SUMMARY | 2024-02-27 12:07 | XMS_ITS | Encounter Summary ---
Author Organization [facility] Health Address [address] [place] [address] Care Team Providers Care Digital Coordinator Name Role Phone Ilan Pearson MD Primary Care Provider [phone] Encounter Details Date Type Department Care Team (Latest Contact Info) Description 05/30/2020 10:46 AM CDT - 05/30/2020 11:59 PM CDT Hospital Encounter [facility] OP [address] [place] [id number] Sachin Bloom MD [address] [facility] [facility] [address] [facility] [address] Discharge Disposition: Home or Self Care Social [...] Report dictated by Tereso Torres MD (residential youth counselor). I, Dr. RUDOLPH CHAN have personally reviewed [...] Report dictated by Tereso Torres MD (residential youth counselor). I, Dr. DAVIS HRASTICH have personally reviewed [...] Report dictated by Tereso Torres MD (residential youth counselor). Dr. RUDOLPH Barnes have personally reviewed and [...] Report dictated by Tereso Torres MD (residential youth counselor). I, Dr. RUDOLPH CHAN have personally reviewed and interpreted this examination/study. This report was electronically signed by RUDOLPH CHAN on 05/31/2020 8:00 AM . Sachin Bloom MD DIAGNOSTIC IMAGING O R[facility]LES documented in this encounter Visit Diagnoses Diagnosis Central cord syndrome, subsequent encounter (HCC) Chronic midline low back pain, unspecified whether sciatica present documented in this encounter Care Teams Digital Coordinator Relationship Specialty Start Date End Date Ilan Pearson MD [address] [place] [id number] PCP - General Family Medicine 05/25/19 documented as of this encounter
--- OUTSIDE RECORDS SUMMARY | 2024-02-27 12:07 | XMS_ITS | Encounter Summary ---
Author Organization [facility] Address [address] [place] [address] Care Team Providers Care Roller Hand Name Role Phone Ilan Pearson MD Primary Care Provider [phone] Encounter Details Date Type Department Care Team (Latest Contact Info) Description 06/09/2019 4:28 PM CDT - 07/08/2019 2:10 PM CDT Hospital Encounter [facility] [address] [place], [place] [id number] [place] [id number] [place] [address] Lucas Wheat MD [address] [place] [id number] [facility] Direct Discharge Disposition: Home or Self [...] CDT 07/07/2019 6:56 AM CDT Catalina Patricia WASTEWATER ANALYST LAB ANALYST-HOTEL RESERVATION AGENT LAB - CHEMISTRY O RDERABLES Performing Organization Address [facility] Co de Phone Number [facility] [address] [place], [place] [id number] * CBC W/O DIFFERENTIAL (07/07/2019 4:59 AM CDT) [facility] WBC 7.9 4.4 - 10.7 x10E9/L 07/07/2019 7:06 AM CDT [facility] RBC 4.43 3.80 - 5.40 x10E12/L 07/07/2019 7:06 AM CDT [facility] Hemoglobin 12.2 12.0 - 17.6 gm/dL 07/07/2019 7:06 AM CDT [facility] Hematocrit 38.2 35.2 - 51.7 % 07/07/2019 7:06 AM CDT [facility] MCV 86.2 80.7 - 98.3 fl 07/07/2019 7:06 AM CDT [facility] MCH 27.5 26.7 - 34.0 pg 07/07/2019 7:06 AM CDT [facility] MCHC 31.9 30.8 - 35.9 gm/dL 07/07/2019 7:06 AM CDT [facility] Platelet Count 342 153 - 416 x10E9/L 07/07/2019 7:06 AM CDT [facility] RDW-CV 13.0 12.1 - 14.9 % 07/07/2019 7:06 AM CDT [facility] MPV 10.5 9.4 - 12.9 fl 07/07/2019 7:06 AM CDT [facility] Blood BLOOD SPECIMEN / Unknown 07/07/2019 4:59 AM CDT 07/07/2019 6:56 AM CDT Catalina Patricia WASTEWATER ANALYST LAB ANALYST-HOTEL RESERVATION AGENT LAB - HEMATOLOGY ORDERABLES Performing Organization Address [facility] Co de Phone Number [facility] [id number] [place] [id number] * CBC W AUTO DIFFERENTIAL (07/04/2019 5:35 AM CDT) [facility] WBC 7.1 4.4 - 10.7 x10E9/L 07/04/2019 [...] - 34.0 pg 07/04/2019 8:03 AM CDT [facility] MCHC 32.5 30.8 - 35.9 gm/dL 07/04/2019 8:03 AM CDT [facility] Platelet Count 303 153 - 416 x10E9/L 07/04/2019 8:03 AM CDT [facility] RDW-CV 13.1 12.1 - 14.9 % 07/04/2019 8:03 AM CDT [facility] MPV 10.7 9.4 - 12.9 fl 07/04/2019 8:03 AM CDT [facility] Neutrophils % 62.5 44.0 - 73.0 % 07/04/2019 8:03 AM CDT [facility] Lymphocytes % 24.5 20.0 [...] - 7.14 x10E9/L 07/04/2019 8:03 AM CDT [facility] Lymphocytes Absolute 1.74 1.07 - 3.94 x10E9/L 07/04/2019 8:03 AM CDT [facility] Monocytes Absolute 0.61 0.26 - 1.07 x10E9/L 07/04/2019 8:03 AM CDT [facility] Eosinophils Absolute 0.23 0 - 0.47 x10E9/L 07/04/2019 8:03 AM CDT [facility] Basophils Absolute 0.03 0 - 0.08 x10E9/L 07/04/2019 8:03 AM CDT [facility] Immature Granulocytes Absolute 0.06 0.00 - 0.06 x10E9/L 07/04/2019 8:03 AM CDT [facility] nRBC Auto 0 /100 WBC 07/04/2019 8:03 AM T [facility] Blood BLOOD SPECIMEN / Unknown 07/04/2019 5:35 AM CDT 07/04/2019 6:32 AM CDT Toma Mcfarlane WASTEWATER ANALYST LAB ANALYST-HOTEL RESERVATION AGENT LAB - HEMATOLOGY ORDERABLES Performing Organization Address City/State/[facility] Co de Phone Number [facility] [address] [place] [address] * (ABNORMAL) BASIC METABOLIC PANEL (CALCIUM TOTAL) (07/04/2019 5:35 AM CDT) Glucose 84 70 - 105 mg/dL 07/04/2019 7:06 AM CDT [facility] Sodium 135(L) 136 - 145 mmol/L 07/04/2019 7:06 AM CDT [facility] Potassium 4.5 3.5 - 5.1 mmol/L 07/04/2019 7:06 AM CDT [facility] Chloride 101 98 - 107 mmol/L 07/04/2019 7:06 AM CDT [facility] CO2 25 23 - 31 mmol/L 07/04/2019 7:06 AM CDT [facility] Calcium 8.9 8.4 - 10.4 mg/dL 07/04/2019 7:06 AM T [facility] Anion Gap 9 8 - 16 mmol/L 07/04/2019 7:06 AM CDT [facility] BUN 10 8.4 - 25.7 mg/dL 07/04/2019 7:06 AM CDT [facility] Creatinine 0.60(L) 0.72 - 1.25 mg/dL 07/04/2019 7:06 AM CDT [facility] eGFR by MDRD >60 >60 mL/min/1.7 3m2 07/04/2019 7:06 AM CDT [facility] eGFR by MDRD >60 >60 mL/min/1.7 3m2 07/04/2019 7:06 AM CDT [facility] Blood BLOOD SPECIMEN / Unknown 07/04/2019 5:35 AM CDT 07/04/2019 6:32 AM CDT Toma Mcfarlane WASTEWATER ANALYST LAB ANALYST-HOTEL RESERVATION AGENT LAB - CHEMISTRY O RDERABLES [facility] [address] [place] [address] * (ABNORMAL) CBC W AUTO DIFFERENTIAL (06/30/2019 4:00 AM CDT) WBC 7.1 4.4 - 10.7 x10E9/L 06/30/2019 6:45 AM CDT [facility] WBC Corrected 06/30/2019 6:45 AM CDT [facility] RBC 4.62 3.80 - 5.40 x10E12/L 06/30/2019 6:45 AM CDT [facility] Hemoglobin 12.7 12.0 - 17.6 gm/dL 06/30/2019 6:45 AM CDT [facility] Hematocrit 40.1 35.2 - 51.7 % 06/30/2019 6:45 AM CDT [facility] MCV 86.8 80.7 - 98.3 fl 06/30/2019 6:45 AM CDT [facility] MCH 27.5 26.7 - 34.0 pg 06/30/2019 6:45 AM CDT [facility] MCHC 31.7 30.8 - 35.9 gm/dL 06/30/2019 6:45 AM CDT [facility] Platelet Count 313 153 - 416 x10E9/L 06/30/2019 6:45 AM CDT [facility] RDW-CV 13.3 12.1 - 14.9 % 06/30/2019 6:45 AM CDT [facility] MPV 10.8 9.4 - 12.9 fl 06/30/2019 6:45 AM CDT [facility] Neutrophils % 61.5 44.0 - 73.0 % 06/30/2019 6:45 AM CDT [facility] Lymphocytes % 25.9 20.0 - 43.0 % 06/30/2019 6:45 AM CDT [facility] Monocytes % 7.7 5.0 - 13.0 % 06/30/2019 6:45 AM CDT [facility] Eosinophils % 2.8 0.0 - 6.0 % 06/30/2019 6:45 AM CDT [facility] Basophils % 0.8 0.0 - 2.0 % 06/30/2019 6:45 AM CDT [facility] Immature Granulocytes 1.3(H) 0 - 1 % 06/30/2019 6:45 AM CDT [facility] Neutrophil Absolute 4.38 2.01 - 7.14 x10E9/L 06/30/2019 6:45 AM CDT [facility] Lymphocytes Absolute 1.85 1.07 - 3.94 x10E9/L 06/30/2019 6:45 AM CDT [facility] Monocytes Absolute 0.55 0.26 - 1.07 x10E9/L 06/30/2019 6:45 AM CDT [facility] Eosinophils Absolute 0.20 0 - 0.47 x10E9/L 06/30/2019 6:45 AM CDT [facility] Basophils Absolute 0.06 0 - 0.08 x10E9/L 06/30/2019 6:45 AM CDT [facility] Immature Granulocytes Absolute 0.09(H) 0.00 - 0.06 x10E9/L 06/30/2019 6:45 AM CDT [facility] nRBC Auto 0 /100 WBC 06/30/2019 6:45 AM CDT [facility] Blood BLOOD SPECIMEN / Unknown 06/30/2019 4:00 AM CDT 06/30/2019 6:40 AM CDT Toma Mcfarlane WASTEWATER ANALYST LAB ANALYST-HOTEL RESERVATION AGENT LAB - HEMATOLOGY ORDERABLES [facility] [address] [place] [address] * (ABNORMAL) BASIC METABOLIC PANEL (CALCIUM TOTAL) (06/30/2019 4:00 AM CDT) Pathologist [facility] Glucose 81 70 - 105 mg/dL 06/30/2019 7:07 AM CDT [facility] Sodium 137 136 - 145 mmol/L 06/30/2019 7:07 AM CDT [facility] Potassium 4.1 3.5 - 5.1 mmol/L 06/30/2019 7:07 AM CDT [facility] Chloride 102 98 - 107 mmol/L 06/30/2019 7:07 AM CDT [facility] CO2 25 23 - 31 mmol/L 06/30/2019 7:07 AM CDT [facility] Calcium 9.2 8.4 - 10.4 mg/dL 06/30/2019 7:07 AM T [facility] Anion Gap 10 8 - 16 mmol/L 06/30/2019 7:07 AM CDT [facility] BUN 11 8.4 - 25.7 mg/dL 06/30/2019 7:07 AM CDT [facility] Creatinine 0.65(L) 0.72 - 1.25 mg/dL 06/30/2019 7:07 AM CDT [facility] eGFR by MDRD >60 >60 mL/min/1.7 3m2 06/30/2019 7:07 AM CDT [facility] eGFR by MDRD >60 >60 mL/min/1.7 3m2 06/30/2019 7:07 AM T [facility] Blood BLOOD SPECIMEN / Unknown 06/30/2019 4:00 AM CDT 06/30/2019 6:39 AM CDT Toma Mcfarlane WASTEWATER ANALYST LAB ANALYST-HOTEL RESERVATION AGENT LAB - CHEMISTRY O RDERABLES [facility] [address] [place] [address] * CBC W AUTO DIFFERENTIAL (06/27/2019 4:00 AM CDT) WBC 6.7 4.4 - 10.7 x10E9/L 06/27/2019 6:45 AM CDT [facility] WBC Corrected 06/27/2019 6:45 [...] - 416 x10E9/L 06/27/2019 6:45 AM CDT [facility] RDW-CV 13.5 12.1 - 14.9 % 06/27/2019 6:45 AM CDT [facility] MPV 10.4 9.4 - 12.9 fl 06/27/2019 6:45 AM CDT [facility] Neutrophils % 59.5 44.0 - 73.0 % 06/27/2019 6:45 AM CDT [facility] Lymphocytes % 28.0 20.0 - 43.0 % 06/27/2019 6:45 AM CDT [facility] Monocytes % 7.7 5.0 - 13.0 % 06/27/2019 6:45 AM CDT [facility] Eosinophils % 3.6 0.0 - 6.0 % 06/27/2019 6:45 AM CDT [facility] Basophils % 0.6 0.0 - 2.0 % 06/27/2019 6:45 AM CDT [facility] Immature Granulocytes 0.6 0 - 1 % 06/27/2019 6:45 AM CDT [facility] Neutrophil Absolute 4.00 2.01 - 7.14 x10E9/L 06/27/2019 6:45 AM CDT [facility] Lymphocytes Absolute 1.88 1.07 - 3.94 x10E9/L 06/27/2019 6:45 AM CDT [facility] Monocytes Absolute 0.52 0.26 - 1.07 x10E9/L 06/27/2019 6:45 AM CDT [facility] Eosinophils Absolute 0.24 0 - 0.47 x10E9/L 06/27/2019 6:45 AM CDT [facility] Basophils Absolute 0.04 0 - 0.08 x10E9/L 06/27/2019 6:45 AM CDT [facility] Immature Granulocytes Absolute 0.04 0.00 - 0.06 x10E9/L 06/27/2019 6:45 AM CDT [facility] nRBC Auto 0 /100 WBC 06/27/2019 6:45 AM CDT [facility] Blood BLOOD SPECIMEN / Unknown 06/27/2019 4:00 AM CDT 06/27/2019 6:35 AM CDT Toma Mcfarlane WASTEWATER ANALYST LAB ANALYST-HOTEL RESERVATION AGENT LAB - HEMATOLOGY ORDERABLES [facility] [id number] [place] [address] * (ABNORMAL) BASIC METABOLIC PANEL (CALCIUM TOTAL) (06/27/2019 4:00 AM CDT) Glucose 91 70 - 105 mg/dL 06/27/2019 7:22 AM CDT [facility] Sodium 136 136 - 145 mmol/L 06/27/2019 7:22 AM CDT [facility] Potassium 4.4 3.5 - 5.1 mmol/L 06/27/2019 7:22 AM CDT [facility] Chloride 100 98 - 107 mmol/L 06/27/2019 7:22 AM CDT [facility] CO2 26 23 - 31 mmol/L 06/27/2019 7:22 AM CDT [facility] Calcium 9.2 8.4 - 10.4 mg/dL 06/27/2019 7:22 AM CDT [facility] Anion Gap 10 8 - 16 mmol/L 06/27/2019 7:22 AM CDT [facility] BUN 13 8.4 - 25.7 mg/dL 06/27/2019 7:22 AM CDT [facility] Creatinine 0.65(L) 0.72 - 1.25 mg/dL 06/27/2019 7:22 AM CDT [facility] eGFR by MDRD >60 >60 mL/min/1.7 3m2 06/27/2019 7:22 AM CDT [facility] eGFR by MDRD >60 >60 mL/min/1.7 3m2 06/27/2019 7:22 AM CDT [facility] Blood BLOOD SPECIMEN / Unknown 06/27/2019 4:00 AM CDT 06/27/2019 6:35 AM CDT Toma Mcfarlane WASTEWATER ANALYST LAB ANALYST-H[employer]EL RESERVATION AGENT LAB - CHEMISTRY O RDERABLES [facility] [address] [place] [address] * CBC W AUTO DIFFERENTIAL (06/23/2019 5:00 AM CDT) WBC 6.2 4.4 - 10.7 x10E9/L 06/23/2019 6:42 AM CDT [facility] WBC Corrected 06/23/2019 6:42 AM CDT [facility] RBC 4.34 3.80 - 5.40 x10E12/L 06/23/2019 6:42 AM CDT [facility] Hemoglobin 12.2 12.0 - 17.6 gm/dL 06/23/2019 6:42 AM CDT [facility] Hematocrit 37.7 35.2 - 51.7 % 06/23/2019 6:42 AM CDT [facility] MCV 86.9 80.7 - 98.3 fl 06/23/2019 6:42 AM CDT [facility] MCH 28.1 26.7 - 34.0 pg 06/23/2019 6:42 AM CDT [facility] MCHC 32.4 30.8 - 35.9 gm/dL 06/23/2019 6:42 AM CDT [facility] Platelet Count 294 153 - 416 x10E9/L 06/23/2019 6:42 AM CDT [facility] RDW-CV 13.3 12.1 - 14.9 % 06/23/2019 6:42 AM CDT [facility] MPV 10.7 9.4 - 12.9 fl 06/23/2019 6:42 AM CDT [facility] Neutrophils % 55.5 44.0 - 73.0 % 06/23/2019 6:42 AM CDT [facility] Lymphocytes % 31.4 20.0 - 43.0 % 06/23/2019 6:42 AM CDT [facility] Monocytes % 8.1 5.0 - 13.0 % 06/23/2019 6:42 AM CDT [facility] Eosinophils % 3.2 0.0 - 6.0 % 06/23/2019 6:42 AM CDT [facility] Basophils % 1.0 0.0 - 2.0 % 06/23/2019 6:42 AM CDT [facility] Immature Granulocytes 0.8 0 - 1 % 06/23/2019 6:42 AM CDT [facility] Neutrophil Absolute 3.43 2.01 - 7.14 x10E9/L 06/23/2019 6:42 AM CDT [facility] Lymphocytes Absolute 1.94 1.07 - 3.94 x10E9/L 06/23/2019 6:42 AM CDT [facility] Monocytes Absolute 0.50 0.26 - 1.07 x10E9/L 06/23/2019 6:42 AM CDT [facility] Eosinophils Absolute 0.20 0 - 0.47 x10E9/L 06/23/2019 6:42 AM CDT [facility] Basophils Absolute 0.06 0 - 0.08 x10E9/L 06/23/2019 6:42 AM CDT [facility] Immature Granulocytes Absolute 0.05 0.00 - 0.06 x10E9/L 06/23/2019 6:42 AM CDT [facility] nRBC Auto 0 /100 WBC 06/23/2019 6:42 AM CDT [facility] Blood BLOOD SPECIMEN / Unknown 06/23/2019 5:00 AM CDT 06/23/2019 6:35 AM CDT Toma Mcfarlane APRN-HOTEL RESERVATION AGENT LAB - HEMATOLOGY ORDERABLES [facility] [address] [place] [address] * (ABNORMAL) BASIC METABOLIC PANEL (CALCIUM TOTAL) (06/23/2019 5:00 AM CDT) [facility] Glucose 81 70 - 105 mg/dL 06/23/2019 6:58 AM CDT [facility] Sodium 136 136 - 145 mmol/L 06/23/2019 6:58 AM CDT [facility] Potassium 4.2 3.5 - 5.1 mmol/L 06/23/2019 6:58 AM CDT [facility] Chloride 102 98 - 107 mmol/L 06/23/2019 6:58 AM CDT [facility] CO2 27 23 - 31 mmol/L 06/23/2019 6:58 AM CDT [facility] Calcium 9.0 8.4 - 10.4 mg/dL 06/23/2019 6:58 AM CDT [facility] Anion Gap 7(L) 8 - 16 mmol/L 06/23/2019 6:58 AM CDT [facility] BUN 14 8.4 - 25.7 mg/dL 06/23/2019 6:58 AM CDT [facility] Creatinine 0.70(L) 0.72 - 1.25 mg/dL 06/23/2019 6:58 AM CDT [facility] eGFR by MDRD >60 >60 mL/min/1.7 3m2 06/23/2019 6:58 AM CDT [facility] eGFR by MDRD >60 >60 mL/min/1.7 3m2 06/23/2019 6:58 AM CDT [facility] Blood BLOOD SPECIMEN / Unknown 06/23/2019 5:00 AM CDT 06/23/2019 6:35 AM CDT Toma Mcfarlane WASTEWATER ANALYST LAB ANALYST-H[employer]EL RESERVATION AGENT LAB - CHEMISTRY O RDERABLES Performing Organization Address City/State/[facility] Co de Phone Number [facility] [address] [place] [address] * URINE MICROSCOPIC ONLY REFLEX TO CULTURE (06/22/2019 7:59 PM CDT) Reflex Status Culture not indicated 06/23/2019 6:50 AM CDT [facility] RBC UA 0-2 None Seen, 0-2, 3-5 # /hpf 06/23/2019 6:50 AM CDT [facility] WBC UA 0-5 None Seen, 0-5 # /hpf 06/23/2019 6:50 AM CDT [facility] Bacteria UA None Seen None Seen 06/23/2019 6:50 AM CDT [facility] Squamous Epithelial Cells None Seen None Seen, 0-2, 3-5 /hpf 06/23/2019 6:50 AM CDT [facility] Urine URINE SPECIMEN COLLECTION, CATHETERIZED / Unknown 06/22/2019 7:59 PM CDT 06/23/2019 6:43 AM CDT Narrative [facility] - 06/23/2019 6:50 AM CDT Chris Sousa MD LAB - URINALYSIS ORD ERABLES [facility] [address] [facility] [place] [address] * (ABNORMAL) URINALYSIS REFLEX MICROSCOPIC REFLEX CULTURE (06/22/2019 7:59 PM CDT) Color UA Straw Straw, Yellow 06/23/2019 6:49 AM CDT [facility] Clarity UA Clear Clear 06/23/2019 6:49 AM CDT [facility] Glucose UA Negative Negative 06/23/2019 6:49 AM CDT [facility] Bilirubin UA Negative Negative 06/23/2019 6:49 AM CDT [facility] Ketone UA Negative Negative 06/23/2019 6:49 AM CDT [facility] Specific [place] UA 1.008 1.005 - 1.030 06/23/2019 6:49 AM CDT [facility] Blood UA 1+(A) Negative 06/23/2019 6:49 AM CDT [facility] pH UA 6.0 5.0 - 8.0 pH 06/23/2019 6:49 AM CDT [facility] Protein UA Negative Negative 06/23/2019 6:49 AM CDT [facility] Urobilinogen UA Negative Negative mg/dL 06/23/2019 6:49 AM CDT [facility] Nitrite UA Negative Negative 06/23/2019 6:49 AM CDT [facility] Leukocyte UA Negative Negative 06/23/2019 6:49 AM CDT [facility] Urine Microscopy Urine microscopy to follow 06/23/2019 6:49 AM CDT [facility] Reflex Status Culture not indicated 06/23/2019 6:49 AM CDT [facility] Urine URINE SPECIMEN COLLECTION, CATHETERIZED / Unknown 06/22/2019 7:59 PM CDT 06/23/2019 6:43 AM CDT Narrative [facility] - 06/23/2019 6:49 AM CDT Chris Sousa MD LAB - URINALYSIS ORD ERABLES [facility] [address] [place] [address] * CBC W AUTO DIFFERENTIAL [...] - 51.7 % 06/20/2019 7:38 AM CDT [facility] MCV 85.8 80.7 - 98.3 fl 06/20/2019 7:38 AM CDT [facility] MCH 28.0 26.7 - 34.0 pg 06/20/2019 7:38 AM CDT [facility] MCHC 32.6 30.8 - 35.9 gm/dL 06/20/2019 7:38 AM CDT [facility] Platelet Count 373 153 - 416 x10E9/L 06/20/2019 7:38 AM CDT [facility] RDW-CV 13.5 12.1 - 14.9 % 06/20/2019 7:38 AM CDT [facility] MPV 10.2 9.4 - 12.9 fl 06/20/2019 7:38 AM CDT [facility] Neutrophils % 63.6 44.0 [...] - 2.0 % 06/20/2019 7:38 AM CDT [facility] Immature Granulocytes 0.8 0 - 1 % 06/20/2019 7:38 AM CDT [facility] Neutrophil Absolute 4.60 2.01 - 7.14 x10E9/L 06/20/2019 7:38 AM CDT [facility] Lymphocytes Absolute 1.83 1.07 - 3.94 x10E9/L 06/20/2019 7:38 AM CDT [facility] Monocytes Absolute 0.55 0.26 - 1.07 x10E9/L 06/20/2019 7:38 AM CDT [facility] Eosinophils Absolute 0.15 0 - 0.47 x10E9/L 06/20/2019 7:38 AM CDT [facility] Basophils Absolute 0.04 0 - 0.08 x10E9/L 06/20/2019 7:38 AM CDT [facility] Immature Granulocytes Absolute 0.06 0.00 - 0.06 x10E9/L 06/20/2019 7:38 AM CDT [facility] nRBC Auto 0 /100 WBC 06/20/2019 7:38 AM CDT [facility] Blood BLOOD SPECIMEN / Unknown 06/20/2019 3:59 AM CDT 06/20/2019 7:13 AM CDT Toma Mcfarlane [employer] ANALYST LAB ANALYST-[employer]ENT LAB - HEMATOLOGY ORDERABLES Performing Organization Address City/State/[facility] Co de Phone Number [facility] [address] [place] [address] * (ABNORMAL) BASIC METABOLIC PANEL (CALCIUM TOTAL) (06/20/2019 3:59 AM CDT) [facility] Glucose 88 70 - 105 mg/dL 06/20/2019 7:45 AM CDT [facility] Sodium 133(L) 136 - 145 mmol/L 06/20/2019 7:45 AM CDT [facility] Potassium 4.8 3.5 - 5.1 mmol/L 06/20/2019 7:45 AM CDT [facility] Chloride 100 98 - 107 mmol/L 06/20/2019 7:45 AM CDT [facility] CO2 28 23 - 31 mmol/L 06/20/2019 7:45 AM CDT [facility] Calcium 8.9 8.4 - 10.4 mg/dL 06/20/2019 7:45 AM CDT [facility] Anion Gap 5(L) 8 - 16 mmol/L 06/20/2019 7:45 AM CDT [facility] BUN 16 8.4 - 25.7 mg/dL 06/20/2019 7:45 AM CDT [facility] Creatinine 0.69(L) 0.72 - 1.25 mg/dL 06/20/2019 7:45 AM CDT [facility] eGFR by MDRD >60 >60 mL/min/1.7 3m2 06/20/2019 7:45 AM CDT [facility] eGFR by MDRD >60 >60 mL/min/1.7 3m2 06/20/2019 7:45 AM CDT [facility] Blood BLOOD SPECIMEN / Unknown 06/20/2019 3:59 AM CDT 06/20/2019 7:13 AM CDT Toma Mcfarlane [employer]EW[employer] ANALYST LAB ANALYST-[employer]ENT LAB - CHEMISTRY O RDERABLES [facility] [address] [place] [address] * XR ABDOMEN KUB (06/17/2019 [...] Group A JHOANA 06/18/2019 10:[address] [facility] MICROBIOLOGY Microbiology ENTIRE THROAT (SURFACE REGION OF NECK) / Unknown Collection / Unknown 06/16/2019 5:18 PM CDT 06/16/2019 6:10 PM CDT [facility]oma Mcfarlane [facility] - MICROBIOLOG Y ORDERABLES Performing Organization Address City/[facility]/ZIP Co de Phone Number [facility] MICROBIOLOGY [address] [place], [place] [id number] [place] [address] * STREP A SCREEN DIRECT W RFLX STREP A CULTURE (06/16/2019 5:18 PM CDT) Strep A Rapid Negative Negative 06/16/2019 6:21 PM CDT [facility] Microbiology ENTIRE THROAT (SURFACE REGION OF NECK) / Unknown Collection / Unknown 06/16/2019 5:18 PM CDT 06/16/2019 6:10 PM CDT Narrative [facility] - 06/16/2019 6:21 PM CDT Test has reflexed to a Strep A culture. Toma Mcfarlane [facility] - MICROBIOLOG Y ORDERABLES Performing Organization Address City/[facility]/ZIP Co de Phone Number [facility] [address] [place] [address] * (ABNORMAL) CBC W AUTO DIFFERENTIAL (06/16/2019 5:10 AM CDT) WBC 7.8 4.4 - 10.7 x10E9/L 06/16/2019 6:40 AM CDT [facility] WBC Corrected 06/16/2019 6:40 AM CDT [facility] RBC 4.47 3.80 - 5.40 x10E12/L 06/16/2019 6:40 AM CDT [facility] Hemoglobin 12.2 12.0 - [...] - 0.08 x10E9/L 06/16/2019 6:40 AM CDT [facility] Immature Granulocytes Absolute 0.17(H) 0.00 - 0.06 x10E9/L 06/16/2019 6:40 AM CDT [facility] nRBC Auto 0 /100 WBC 06/16/2019 6:40 AM CDT [facility] Blood BLOOD SPECIMEN / Unknown 06/16/2019 5:10 AM CDT 06/16/2019 6:25 AM CDT Toma Mcfarlane WASTEWATER ANALYST LAB ANALYST-HOTEL RESERVATION AGENT LAB - HEMATOLOGY ORDERABLES [facility] [address] [place] [address] * (ABNORMAL) BASIC METABOLIC PANEL (CALCIUM TOTAL) (06/16/2019 5:10 AM CDT) Glucose 92 70 - 105 mg/dL 06/16/2019 6:55 AM CDT [facility] Sodium 134(L) 136 - 145 mmol/L 06/16/2019 6:55 AM CDT [facility] Potassium 4.7 3.5 - 5.1 mmol/L 06/16/2019 6:55 AM CDT [facility] Chloride 99 98 - 107 mmol/L 06/16/2019 6:55 AM CDT [facility] CO2 26 23 - 31 mmol/L 06/16/2019 6:55 AM CDT [facility] Calcium 9.1 8.4 - 10.4 mg/dL 06/16/2019 6:55 AM T [facility] Anion Gap 9 8 - 16 mmol/L 06/16/2019 6:55 AM CDT [facility] BUN 17 8.4 - 25.7 mg/dL 06/16/2019 6:55 AM CDT [facility] Creatinine 0.74 0.72 - 1.25 mg/dL 06/16/2019 6:55 AM CDT [facility] eGFR by MDRD >60 >60 mL/min/1.7 3m2 06/16/2019 6:55 AM CDT [facility] eGFR by MDRD >60 >60 mL/min/1.7 3m2 06/16/2019 6:55 AM CDT [facility] Blood BLOOD SPECIMEN / Unknown 06/16/2019 5:10 AM CDT 06/16/2019 6:25 AM CDT Toma Mcfarlane WASTEWATER ANALYST LAB ANALYST-HOTEL RESERVATION AGENT LAB - CHEMISTRY O RDERABLES Performing Organization Address [facility] Co de Phone Number [facility] [address] [place] [address] * (ABNORMAL) BASIC METABOLIC PANEL (CALCIUM TOTAL) (06/13/2019 4:40 AM CDT) [facility] Glucose 96 70 - 105 mg/dL 06/13/2019 7:23 AM CDT [facility] Sodium 133(L) 136 - 145 mmol/L 06/13/2019 7:23 AM CDT [facility] Potassium 5.1 3.5 - 5.1 mmol/L 06/13/2019 7:23 AM CDT [facility] Chloride 98 98 - 107 mmol/L 06/13/2019 7:23 AM CDT [facility] CO2 28 23 - 31 mmol/L 06/13/2019 7:23 AM CDT [facility] Calcium 8.8 8.4 - 10.4 mg/dL 06/13/2019 7:23 AM CDT [facility] Anion Gap 7(L) 8 - 16 mmol/L 06/13/2019 7:23 AM CDT [facility] BUN 15 8.4 - 25.7 mg/dL 06/13/2019 7:23 AM CDT [facility] Creatinine 0.67(L) 0.72 - 1.25 mg/dL 06/13/2019 7:23 AM CDT [facility] eGFR by MDRD >60 >60 mL/min/1.7 3m2 06/13/2019 7:23 AM CDT [facility] eGFR by MDRD >60 >60 mL/min/1.7 3m2 06/13/2019 7:23 AM CDT [facility] Blood BLOOD SPECIMEN / Unknown 06/13/2019 4:40 AM CDT 06/13/2019 6:42 AM CDT Catailna Patricia WASTEWATER ANALYST LAB ANALYST-HOTEL RESERVATION AGENT LAB - CHEMISTRY O RDERABLES [facility] [address] [place] [id number] * (ABNORMAL) CBC W AUTO DIFFERENTIAL (06/13/2019 4:40 AM CDT) WBC 7.5 4.4 - 10.7 x10E9/L 06/13/2019 6:55 AM CDT [facility] WBC Corrected 06/13/2019 6:55 AM CDT [facility] RBC 4.18 3.80 - 5.40 x10E12/L 06/13/2019 6:55 AM CDT [facility] Hemoglobin 11.5(L) 12.0 - 17.6 gm/dL 06/13/2019 6:55 AM CDT [facility] Hematocrit 35.9 35.2 - 51.7 % 06/13/2019 6:55 AM CDT [facility] MCV 85.9 80.7 - 98.3 fl 06/13/2019 6:55 AM CDT [facility] MCH 27.5 26.7 - 34.0 pg 06/13/2019 6:55 AM CDT [facility] MCHC 32.0 30.8 - 35.9 gm/dL 06/13/2019 6:55 AM CDT [facility] Platelet Count 572(H) 153 - 416 x10E9/L 06/13/2019 6:55 AM CDT [facility] RDW-CV 13.4 12.1 - 14.9 % 06/13/2019 6:55 AM CDT [facility] MPV 9.1(L) 9.4 - 12.9 fl 06/13/2019 6:55 AM CDT [facility] Neutrophils % 63.4 44.0 - 73.0 % 06/13/2019 6:55 AM CDT [facility] Lymphocytes % 24.6 20.0 - 43.0 % 06/13/2019 6:55 AM CDT [facility] Monocytes % 7.1 5.0 - 13.0 % 06/13/2019 6:55 AM CDT [facility] Eosinophils % 2.4 0.0 - 6.0 % 06/13/2019 6:55 AM CDT [facility] Basophils % 0.9 0.0 - 2.0 % 06/13/2019 6:55 AM CDT [facility] Immature Granulocytes 1.6(H) 0 - 1 % 06/13/2019 6:55 AM CDT [facility] Neutrophil Absolute 4.75 2.01 - 7.14 x10E9/L 06/13/2019 6:55 AM CDT [facility] Lymphocytes Absolute 1.84 1.07 - 3.94 x10E9/L 06/13/2019 6:55 AM CDT [facility] Monocytes Absolute 0.53 0.26 - 1.07 x10E9/L 06/13/2019 6:55 AM CDT [facility] Eosinophils Absolute 0.18 0 - 0.47 x10E9/L 06/13/2019 6:55 AM CDT [facility] Basophils Absolute 0.07 0 - 0.08 x10E9/L 06/13/2019 6:55 AM CDT [facility] Immature Granulocytes Absolute 0.12(H) 0.00 - 0.06 x10E9/L 06/13/2019 6:55 AM CDT [facility] nRBC Auto 0 /100 WBC 06/13/2019 6:55 AM CDT [facility] Blood BLOOD SPECIMEN / Unknown 06/13/2019 4:40 AM CDT 06/13/2019 6:42 AM CDT Catalina Patricia WASTEWATER ANALYST LAB ANALYST-HOTEL RESERVATION AGENT LAB - HEMATOLOGY ORDERABLES [facility] [address] [place] [address] * (ABNORMAL) BASIC METABOLIC PANEL (CALCIUM TOTAL) (06/10/2019 4:35 AM CDT) [facility] Glucose 85 70 - 105 mg/dL 06/10/2019 7:46 AM CDT [facility] Sodium 135(L) 136 - 145 mmol/L 06/10/2019 7:46 AM CDT [facility] Potassium 3.3(L) 3.5 - 5.1 mmol/L 06/10/2019 7:46 AM CDT [facility] Chloride 98 98 - 107 mmol/L 06/10/2019 7:46 AM CDT [facility] CO2 28 23 - 31 mmol/L 06/10/2019 7:46 AM CDT [facility] Calcium 8.1(L) 8.4 - 10.4 mg/dL 06/10/2019 7:46 AM CDT [facility] Anion Gap 9 8 - 16 mmol/L 06/10/2019 7:46 AM CDT [facility] BUN 11 8.4 - 25.7 mg/dL 06/10/2019 7:46 AM CDT [facility] Creatinine 0.66(L) 0.72 - 1.25 mg/dL 06/10/2019 7:46 AM CDT [facility] eGFR by MDRD >60 >60 mL/min/1.7 3m2 06/10/2019 7:46 AM CDT [facility] eGFR by MDRD >60 >60 mL/min/1.7 3m2 06/10/2019 7:46 AM CDT [facility] Blood BLOOD SPECIMEN / Unknown Venipuncture / Unknown 06/10/2019 4:35 AM CDT 06/10/2019 7:07 AM CDT Lucas Wheat MD LAB - CHEMISTRY ALEXSI DEVRIES [facility] Organization Address City/State/ZIP Co de Phone Number [facility] [address] [place] [address] * (ABNORMAL) CBC W AUTO DIFFERENTIAL (06/10/2019 4:35 AM CDT) WBC 7.1 4.4 - 10.7 x10E9/L 06/10/2019 7:17 AM CDT [facility] WBC Corrected 06/10/2019 7:17 AM CDT [facility] RBC 3.75(L) 3.80 - 5.40 x10E12/L 06/10/2019 7:17 AM CDT [facility] Hemoglobin 10.4(L) 12.0 - 17.6 gm/dL 06/10/2019 7:17 AM CDT [facility] Hematocrit 31.7(L) 35.2 - 51.7 % 06/10/2019 7:17 AM CDT [facility] MCV 84.5 80.7 - 98.3 fl 06/10/2019 7:17 AM CDT [facility] MCH 27.7 26.7 - 34.0 pg 06/10/2019 7:17 AM CDT [facility] MCHC 32.8 30.8 - 35.9 gm/dL 06/10/2019 7:17 AM CDT [facility] Platelet Count 489(H) 153 - 416 x10E9/L 06/10/2019 7:17 AM CDT [facility] RDW-CV 13.2 12.1 - 14.9 % 06/10/2019 7:17 AM CDT [facility] MPV 9.6 9.4 - 12.9 fl 06/10/2019 7:17 AM CDT [facility] Neutrophils % 70.8 44.0 - 73.0 % 06/10/2019 7:17 AM CDT [facility] Lymphocytes % 17.0(L) 20.0 - 43.0 % 06/10/2019 7:17 AM CDT [facility] Monocytes % 8.3 5.0 - 13.0 % 06/10/2019 7:17 AM CDT [facility] Eosinophils % 1.8 0.0 - 6.0 % 06/10/2019 7:17 AM CDT [facility] Basophils % 0.4 0.0 - 2.0 % 06/10/2019 7:17 AM CDT [facility] Immature Granulocytes 1.7(H) 0 - 1 % 06/10/2019 7:17 AM CDT [facility] Neutrophil Absolute 5.03 2.01 - 7.14 x10E9/L 06/10/2019 7:17 AM CDT [facility] Lymphocytes Absolute 1.21 1.07 - 3.94 x10E9/L 06/10/2019 7:17 AM CDT [facility] Monocytes Absolute 0.59 0.26 - 1.07 x10E9/L 06/10/2019 7:17 AM CDT [facility] Eosinophils Absolute 0.13 0 - 0.47 x10E9/L 06/10/2019 7:17 AM CDT [facility] Basophils Absolute 0.03 0 - 0.08 x10E9/L 06/10/2019 7:17 AM CDT [facility] Immature Granulocytes Absolute 0.12(H) 0.00 - 0.06 x10E9/L 06/10/2019 7:17 AM CDT [facility] nRBC Auto 0 /100 WBC 06/10/2019 7:17 AM CDT [facility] Blood BLOOD SPECIMEN / Unknown Venipuncture / Unknown 06/10/2019 4:35 AM CDT 06/10/2019 7:07 AM CDT Lucas Wheat MD LAB - HEMATOLOGY ORD ERABLES [facility] [address] [place] [address] documented in this encounter Visit Diagnoses Not on filedocumented in this encounter Care Teams Roller Hand Relationship Specialty Start Date End Date Ilan Pearson MD [address] [place] [address] PCP - General Family Medicine 05/25/19 documented as of this encounter
--- OUTSIDE RECORDS SUMMARY | 2024-02-27 12:07 | XMS_ITS | Encounter Summary ---
Author Organization [facility] Address [address] [place] [address] Care Team Providers Care Leader Tier Name Role Phone Ilan Pearson MD Primary Care Provider [phone] Reason for Visit * Reason Onset Date Comments Speech Therapy 12/05/2019 Encounter Details Date Type Department Care Team (Late st Contact Info) Description 12/05/2019 Telephone [facility] [address] [facility], [address] [place] [address] Almita Feliciano, ZIPPER SETTER [address] [place] [phone] Speech Therapy Social History Tobacco Use Types [...] 12/05/2019 11:26 AM CDT Checked CPT codes 76332/89408 does not require authorization via Link Portal. No ref# given documented in this encounter Plan of Treatment Not on file documented as of this encounter Visit Diagnoses Not on filedocumented in this encounter Care Teams Leader Tier Relationship Specialty Start Date End Date Ilan Pearson MD [address] [place] [id number] PCP - General Family Medicine 05/25/19 documented as of this encounter
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
--- OUTSIDE RECORDS SUMMARY | 2024-02-27 12:07 | XMS_ITS | Encounter Summary ---
Author Organization [facility] Address [address] [facility] [place] [address] Care Team Providers Care Supervisor Telephone Clerks Name Role Phone Ilan Pearson MD Primary Care Provider [phone] Reason for Visit * Reason Onset Date Comments Appointment 09/26/2019 Encounter Details Date Type Department Care Team (Late st Contact Info) Description 09/26/2019 Telephone [facility] [address] [phone] Almita Feliciano, SENIOR PROPERTY MANAGER [address] [place] [phone] Appointment Social History Tobacco Use Types Packs/Day [...] time slot and will be done at [facility]. Referral in [facility] [place] [facility]. documented in this encounter Plan of Treatment Not on file documented as of this encounter Visit Diagnoses Not on filedocumented in this encounter Care Teams Supervisor Telephone Clerks Relationship Specialty Start Date End Date Ilan Pearson MD [address] [place] [address] PCP - General Family Medicine 05/25/19 documented as of this encounter
--- OUTSIDE RECORDS SUMMARY | 2024-02-27 12:07 | XMS_ITS | Encounter Summary ---
Author Organization [facility] Address [address] [place] [address] Care Team Providers Care Tarper Name Role Phone Ilan Pearson MD Primary Care Provider [phone] Reason for Visit * Reason Comments Throat Problem Encounter Details Date Type Department Care Team (Late st Contact Info) Description 03/27/2020 11:15 AM SERVER ENGINEER Office Visit [facility] [address] [place] [phone] Ernesto Aggarwal MD [address] [place] [address] [place] [address] Vocal cord paralysis (Primary Dx); Bilateral impacted [...] Comments Blood Pressure 139/81 03/27/2020 11:07 AM SERVER ENGINEER Pulse 73 03/27/2020 11:07 AM SERVER ENGINEER Temperature - - Respiratory Rate - - Oxygen Saturation - - Inhaled Oxygen Concentration - - Weight 77.6 kg (171 lb) 03/27/2020 11:07 AM SERVER ENGINEER Height 185.4 cm (6' 1 ) 03/27/2020 11:07 AM SERVER ENGINEER Body Mass Index 22.56 03/27/2020 11:07 AM SERVER ENGINEER documented in this encounter Functional Status [...] Instructions* Alexander Rick - 03/27/2020 10:54 AM SERVER ENGINEER daTmainork chavez for visiting [facility] Otolaryngology - Head & Neck Surgery. We [...] an appointment, please call our office at [phone] Thursday through Thursday from 8:30 am to4:30 pm. You can also request a routine appointment through your [email or web address] account. ??? Prescription Refills Contact your pharmacy [...] call the medical exchangeat and ask the spinner operator to page the ENT physician front load trash truck driver. *Caller ID blocking service will need to be turned off for your call to be returned. We also specialize in Hearing Aids, Allergy testing, swallowing disorders, voice problems, cancer diagnosis, and so much more. Visit our website at [email or web address] for information about our practice and an interactive health encyclopedia. ER ENGINEER documented in this encounter Progress Notes [...] asymmetry, or inflammation Septum: Good alignment Turbinates: [place], non-edematous, without discharge Mucosa: [place], healthy appearing Oral Cavity: No perioral or [...] needed. -Continue swallow exercises as prescribed by EXPENDITURE REQUISITION CLERK Kalen Mcfarlane MD Otolaryngology-Head and Neck Surgery [...] will follow-up with us on appearing basis ER ENGINEER * Rick Munoz - 03/27/2020 11:14 AM CST Review of Systems [facility] reports the following:Throat: no symptoms today ER ENGINEER documented in this encounter Procedure Notes [...] The patient tolerated procedure well. Complications: None ER ENGINEER * Kalen Mcfarlane MD - 03/27/2020 12:33 PM CSTAssociated Order(s): PROC ENDOSCOPY-LARYNX Procedure(s): DE LARYNGOSCOPY,FLEX FIBER,DIAGNOSTIC Pre-Procedure Diagnose(s): Vocal cord paralysis [...] portions of the entirety of the procedure. ER ENGINEER documented in this encounter Plan of Treatment Not on file documented as of this encounter Procedures Procedure Name Priority Date/Time Associated Diagnosis Comments PROC CERUMEN REMOVAL Routine 03/27/2020 12:36 PM SERVER ENGINEER Bilateral impacted cerumen DE LARYNGOSCOPY,FLEX FIBER,DIAGNOSTIC Routine 03/27/2020 12:33 PM SERVER ENGINEER Vocal cord paralysis documented in this encounter Results * PROC CERUMEN REMOVAL (03/27/2020 12:36 PM SERVER ENGINEER) Narrative Kalen Mcfarlane MD - 03/27/2020 12:36 PM SERVER ENGINEER Kalen Mcfarlane MD ? 03/27/2020 ??1:05 PM [...] Aggarwal MD PROCEDURE/MINOR SURG ICAL ORDERABLES * DE LARYNGOSCOPY,FLEX FIBER,DIAGNOSTIC (03/27/2020 12:33 PM SERVER ENGINEER) Narrative Kalen Mcfarlane MD - 03/27/2020 12:33 PM SERVER ENGINEER Kalen Mcfarlane MD ? 03/27/2020 ??1:05 PM [...] cerumen documented in this encounter Care Teams Tarper Relationship Specialty Start Date End Date Ilan Pearson MD [address] [place] [id number] PCP - General Family Medicine 05/25/19 documented as of this encounter
--- OUTSIDE RECORDS SUMMARY | 2024-02-27 12:07 | XMS_ITS | Encounter Summary ---
Author Organization [facility] Address [address] [facility] [place] [address] Care Team Providers Care Wildlife Technician Name Role Phone Ilan Pearson MD Primary Care Provider [phone] Reason for Referral * Radiology Services (Routine) - Closed Specialty Diagnoses / Procedures Referred By Alton t Referred To Contact Fluoroscopy Diagnoses Dysphagia, unspecified type Procedures FL SWALLOWING FUNCTION STUDY Ernesto Aggarwal MD [address] [place] [address] Referral ID Status Reason Start Date Expiration Date Visits Re quested Visits Authorized [id number] Closed 09/22/2019 09/21/2020 1 1 Reason for Visit * Reason Comments Establish Care Throat Problem dysphagia Encounter Details Date Type Department Care Team (Late st Contact Info) Description 09/22/2019 10:00 AM CDT Office Visit [facility] [address] [facility], [address] [place] [address] Ernesto Aggarwal MD [address] [place] [address] [place] [address] Dysphagia, unspecified type (Primary Dx); [...] 10:00 AM CDT Thank you for visiting [facility] Otolaryngology - Head & Neck Surgery. [...] an appointment, please call our office at [phone] Thursday through Thursday from 8:30 am to4:30 pm. You can also request a routine appointment through your [employer] account. ??? Prescription Refills Contact your pharmacy [...] the medical exchange at and ask the deep submergence vehicle operator to page the ENT physician application processor. *Caller ID blocking service will need to be turned off for your call to be returned. We also specialize in Hearing Aids, Allergy testing, swallowing disorders, voice problems, cancer diagnosis, and so much more. Visit our website at [email or web address] for information about our practice [...] asymmetry, or inflammation Septum: Good alignment Turbinates: [place], non-edematous, without discharge Mucosa: [place], healthy appearing Oral Cavity: No perioral or [...] Note Endoscopy Endoscopy Type: Laryngoscopy without stroboscopy [address] Endoscope: Flexible 4mm Scope Anesthesia: Lidocaine 2% [...] 11:04 AM CDTAssociated Order(s): PROC ENDOSCOPY-LARYNX Procedure(s): SD LARYNGOSCOPY,FLEX FIBER,DIAGNOSTIC Pre-Procedure Diagnose(s): Dysphagia, unspecified type; Vocal cord paralysis See procedure note in the progress note from this date. documented in this encounter Plan of Treatment Not on file documented as of this encounter Procedures Procedure Name Priority Date/Time Associated Diagnosis Comments SD LARYNGOSCOPY,FLEX FIBER,DIAGNOSTIC Routine 09/22/2019 11:04 AM CDT [...] for details. Dictated by Jalen Gooden MD (radiology administrator). Dr. PRICILLA Barnes have personally reviewed and [...] for details. Dictated by Jalen Gooden MD (radiology administrator). Dr. PRICILLA Barnes have personally reviewed and interpreted this examination/study. This report was electronically signed by PRICILLA MANCILLA on 11/18/20191:37 PM . Ernesto Aggarwal MD FLUOROSCOPY ORDERABL ES * SD LARYNGOSCOPY,FLEX FIBER,DIAGNOSTIC (09/22/2019 11:04 AM CDT) Narrative [...] unspecified documented in this encounter Care Teams Wildlife Technician Relationship Specialty Start Date End Date Ilan Pearson MD [address] [place] [phone] PCP - General Family Medicine 05/25/19 documented as of this encounter
--- OUTSIDE RECORDS SUMMARY | 2024-02-27 12:07 | XMS_ITS | Encounter Summary ---
Author Organization [facility] Address [address] [place] [address] Care Team Providers Care Biomedical Equipment Tech Name Role Phone Ilan Pearson MD Primary Care Provider [phone] Encounter Details Date Type Department Care Team [...] on filedocumented in this encounter Care Teams Biomedical Equipment Tech Relationship Specialty Start Date End Date Ilan Pearson MD [address] [place] [id number] PCP - General Family Medicine 05/25/19 documented as of this encounter
--- OUTSIDE RECORDS SUMMARY | 2024-02-27 12:07 | XMS_ITS | Encounter Summary ---
Author Organization [facility] Address [address] [place] [address] Care Team Providers Care Moss Gatherer Name Role Phone Ilan Pearson MD Primary Care Provider [phone] Reason for Visit * Reason Onset Date Comments Appointment 09/22/2019 Encounter Details Date Type Department Care Team (Late st Contact Info) Description 09/22/2019 Telephone [facility] [address] [phone] Almita Feliciano, CONICAL MIXER [address] [place] [phone] Appointment Social History Tobacco Use Types Packs/Day [...] done at [facility]. Referral in [facility]. documented in this encounter Plan of Treatment Not on file documented as of this encounter Visit Diagnoses Not on filedocumented in this encounter Care Teams Moss Gatherer Relationship Specialty Start Date End Date Ilan Pearson MD [address] [place] [address] PCP - General Family Medicine 05/25/19 documented as of this encounter
--- OUTSIDE RECORDS SUMMARY | 2024-02-27 12:07 | XMS_ITS | Encounter Summary ---
Author Organization [facility] Health Address [address] [facility] [place] [address] Care Team Providers Care Geographic Information System Surveyor Name Role Phone Ilan Pearson MD Primary Care Provider [phone] Encounter Details Date Type Department Care Team (Late st Contact Info) Description 08/23/2019 10:48 AM CDT - 08/23/2019 11:59 PM CDT Hospital Encounter [facility] DIAGNOSTIC RAD CSM 1L [address] [facility] [place] [address] French Kim MD [address] [facility] [address] [place] [phone] Discharge Disposition: Home or Self Care [...] alignment. Report dictated by Misael [place] MD (compensation vice president). IDr. AL MD have personally reviewed and [...] alignment. Report dictated by Misael [place] MD (compensation vice president). Dr. AL Barnes MD have personally reviewed and interpreted this examination/study. This report was electronically signed by AL LAWTON MD on08/23/2019 11:34 AM . French Kim MD DIAGNOSTIC IMAGING O RDERABLES documented in this encounter Visit Diagnoses Diagnosis Neck pain Cervicalgia documented in this encounter Care Teams Geographic Information System Surveyor Relationship Specialty Start Date End Date Ilan Pearson MD [address] [place] [address] PCP - General Family Medicine 05/25/19 documented as of this encounter
--- OUTSIDE RECORDS SUMMARY | 2024-02-27 12:07 | XMS_ITS | Encounter Summary ---
Author Organization [facility] Health Address [address] [facility] [place] [address] Care Team Providers Care Outside Dealer Sales Representative Name Role Phone Ilan Pearson MD Primary Care Provider [phone] Reason for Visit * Reason Comments Follow-up Encounter Details Date Type Department Care Team (Late st Contact Info) Description 08/23/2019 10:30 AM CDT Office Visit [facility] - [facility]oped[facility] [address] [facility], [place] [address] French Kim MD [address] [facility] [address] [place] [phone] Aftercare following surgery (Primary Dx); Dysphagia, [...] 08/23/2019 Follow up: 3 months Please contact [facility] ENT to schedule an appointment with Dr. Aggarwal, Call [phone] Kim has referred you to Dr. Aggarwal and there is a referral in [facility]. Dr. Ernesto Aggarwal [address] [place] [address] [address] Please contact our clinic call center at if you need to schedule or change an appointment. For medical emergencies please call [phone]. Please contact Mina Denise RN at or through [employer] if you have any further questions or concerns. [facility] Orthopaedic office contact information: [facility] ([facility]) [address] [place] [address] [facility] [address] [place] [address], [address], [place] [address] August 23, 2019 To Whom It May Concern: Please use this letter to document that Ajit Tyler, : 1960, was in to see French Kim MD on 08/23/2019. Thank you. Sincerely, French Kim MD [facility] ORTHO BEAU documented in this encounter Progress Notes * Dwight Noriega MD - 08/23/2019 11:58 AM CDT [facility] Orthopedic Spine Surgery Clinic Note Ajit Tyler, 59 year old, male : 1960 CSN: [id number] Primary Care Physician: Ilan Pearson MD Diagnosis/Procedures [...] Arthrodesis status Central cord syndrome, subsequent encounter ([facility]) Other closed nondisplaced fracture of fourth cervical vertebra with routine healing, subsequent encounter documented in this encounter Care Teams Outside Dealer Sales Representative Relationship Specialty Start Date End Date Ilan Pearson MD [address] [place] [address] PCP - General Family Medicine 05/25/19 documented as of this encounter
--- OUTSIDE RECORDS SUMMARY | 2024-02-27 12:07 | XMS_ITS | Encounter Summary ---
Author Organization [facility] Health Address [address] [facility] [place] [address] Care Team Providers Care Ton Cylinder Inspector Name Role Phone Ilan Pearson MD Primary Care Provider [phone] Encounter Details Date Type Department Care Team [...] on filedocumented in this encounter Care Teams Ton Cylinder Inspector Relationship Specialty Start Date End Date Ilan Pearson MD [address] [place] [address] PCP - General Family Medicine 05/25/19 documented as of this encounter
--- OUTSIDE RECORDS SUMMARY | 2024-02-27 12:07 | XMS_ITS | Encounter Summary ---
Author Organization [facility] Address [address] [facility] [place] [address] Care Team Providers Care Hair And Makeup Designer Name Role Phone Ilan Pearson MD Primary Care Provider [phone] Encounter Details Date Type Department Care Team (Latest Contact Info) Description 05/31/2019 4:55 PM CDT - 06/06/2019 2:33 PM CDT Hospital Encounter [address] [address] [place] [address] [place] [address] Rehabilitation Discharge Disposition: Other Facility Not Defined [...] Not detected, Invalid 06/07/2019 6:09 AM CDT [facility] MICROBIOLOG[facility] Microbiology SPECIMEN FROM NASOPHARYNGEAL STRUCTURE / Unknown 06/06/2019 1:01 PM CDT 06/06/2019 1:01 PM CDT Narrative [facility] - 06/07/2019 6:09 AM CDT This Real Time RT-PCR assay was developed and its performance characteristics determined by [facility]. This test has been [...] Sousa MD LAB - MICROBIOLOGY O RDERABLES [facility]CROBI[facility] [address] [place] [address], [facility] [phone] * RESPIRATORY PATHOGEN PANEL BY PCR (06/06/2019 1:01 PM CDT) Adenovirus PCR Not detected Not detected, Invalid, Indeterminate 06/06/2019 8:32 PM T [facility] Coronavirus PCR Not detected Not detected, Invalid, Indeterminate 06/06/2019 8:32 PM T [facility] Human Metapneumovirus PCR Not detected Not detected, Invalid, Indeterminate 06/06/2019 8:32 PM [facility]CRO[facility] Human Rhinovirus/Entero virus PCR Not detected Not detected, Invalid, Indeterminate 06/06/2019 8:32 PM [facility]CRO[facility] Influenza A PCR Not detected Not detected, Equivocal, Invalid, Indeterminate 06/06/2019 8:32 PM T [facility] Influenza B PCR Not detected Not detected, Invalid, Indeterminate 06/06/2019 8:32 PM T [facility] Parainfluenza Virus 1 PCR Not detected Not detected, Invalid, Indeterminate 06/06/2019 8:32 PM T [facility] Parainfluenza Virus 2 PCR Not detected Not detected, Invalid, Indeterminate 06/06/2019 8:32 PM [facility] Parainfluenza Virus 3 PCR Not detected Not detected, Invalid, Indeterminate 06/06/2019 8:32 PM T [facility] Parainfluenza Virus 4 PCR Not detected Not detected, Invalid, Indeterminate 06/06/2019 8:32 PM [facility] Respiratory Syncytial Virus PCR Not detected Not detected, Invalid, Indeterminate 06/06/2019 8:32 PM T [facility] Bordetella pertussis PCR Not detected Not detected, Invalid 06/06/2019 8:32 PM [facility] Chlamydia pneumoniae PCR Not detected Not detected, Invalid, Indeterminate 06/06/2019 8:32 PM [facility]CRO[facility] Mycoplasma pneumoniae PCR Not detected Not detected, Invalid, Indeterminate 06/06/2019 8:32 PM [facility]CROBI[facility] Microbiology SPECIMEN FROM NASOPHARYNGEAL STRUCTURE / Unknown 06/06/2019 1:01 PM CDT 06/06/2019 1:[address] [facility] MICROBIOLOGY - 06/06/2019 8:32 PM CDT This test is able to detect the following human coronaviruses: HKU1, NL63, 229E, and OC43. It will NOT detect 2019 Novel Coronavirus (2019-nCoV). If 2019-nCoV is suspected contact Infection Prevention for isolation and testing guidance. Chris Sousa MD LAB - MICROBIOLOGY O RDERABLES [facility]CRO[facility] [address] [place] [address], [facility] [phone] documented in this encounter Visit Diagnoses Diagnosis Chest pain at rest- Primary Chest pain, unspecified documented in this encounter Additional Health Concerns Infection Onset Date Last Indicated Resolved Time COVID-19 Under Investigation 06/06/2019 06/07/2019 06/07/2019 6:09 AM CDT documented as of this encounter Care Teams Hair And Makeup Designer Relationship Specialty Start Date End Date Ilan Pearson MD [address] [place] [address] PCP - General Family Medicine 05/25/19 documented as of this encounter
--- OUTSIDE RECORDS SUMMARY | 2024-02-27 12:07 | XMS_ITS | Encounter Summary ---
Author Organization [facility] Health Address [address] [facility] [place] [address] Care Team Providers Care Cnc Field Service Engineer Name Role Phone Ilan Pearson MD Primary Care Provider [phone] Encounter Details Date Type Department Care Team (Late st Contact Info) Description 07/12/2019 11:11 AM CDT - 07/12/2019 11:59 PM CDT Hospital Encounter [facility] DIAGNOSTIC RAD [facility] [address] [place] [address] Kamron Corrigan MD No info [...] in alignment. Dictated by Blaine Santos MD (residential green building designer). Dr. AL Barnes MD have personally reviewed [...] in alignment. Dictated by Blaine Santos MD (residential green building designer). Dr. AL Barnes MD have personally reviewed and interpreted this examination/study. This report was electronically signed by AL LAWTON MD on07/13/2019 8:42 AM . Kamron Corrigan MD DIAGNOSTIC I MAGING ORDERABLES documented in this encounter Visit Diagnoses Diagnosis Central cord syndrome, initial encounter (HCC) documented in this encounter Care Teams Cnc Field Service Engineer Relationship Specialty Start Date End Date Ilan Pearson MD [address] [place] [address] PCP - General Family Medicine 05/25/19 documented as of this encounter
--- OUTSIDE RECORDS SUMMARY | 2024-02-27 12:07 | XMS_ITS | Encounter Summary ---
Author Organization [facility] Health Address [address] [facility] [place] [address] Care Team Providers Care Senior Sql Server Database Developer Name Role Phone Ilan Pearson MD Primary Care Provider [phone] Reason for Referral * Evaluate & Treat (Routine) - Closed Specialty Diagnoses / Procedures Referred By Alton t Referred To Contact Neurological Surgery Diagnoses Central cord syndrome, subsequent encounter (HCC) S/P cervical spinal fusion French Kim MD [address] [facility] [address] [place] [address] Sachin Bloom MD [address] [place] [address] Referral ID Status Reason Start Date Expiration Date V isits Requested Visits Authorized [id number] Closed Specialty Services Required 11/22/2019 11/21/2020 1 1 Reason for Visit * Reason Comments Follow-up Encounter Details Date Type Department Care Team (Late st Contact Info) Description 11/22/2019 11:15 AM CDT Office Visit [facility] [address] [facility], [place] [address] French Kim MD [address] [facility] [address] [place] [address] Central cord syndrome, subsequent encounter ([facility]) (Primary Dx); S/P cervical spinal fusion Social [...] schedule an appointment. You may also call [phone] to schedule an appointment with Dr. Bloom. Your referral, notes and imaging are all in our system. Please contact our clinic call center at if you need to schedule or change an appointment. For medical emergencies please call 911. Please contact Mina Denise RN at or through [employer] if you have any further questions or concerns. [facility] Orthopaedic office contact information: [facility] Medicine (at [facility]) [address] [place] [address] [place], [place] [address] [place] [address] [place] [address] [place] [address] November 22, 2019 To Whom It May Concern: Please use this letter to document that Ajit Tyler, : 1960, was in to see French Kim MD on 11/22/2019. Thank you. Sincerely, French Kim MD [facility] ORTHO CSM 1L documented in this encounter Progress Notes * Laveen Jose Alejandro - 11/22/2019 12:25 PM CDT [facility] Orthopedic Spine Surgery Clinic Note Ajit Tyler, 59 year old, male : 1960 CSN: [id number] Primary Care Physician: Ilan Pearson MD Diagnosis/Procedures [...] status documented in this encounter Care Teams Senior Sql Server Database Developer Relationship Specialty Start Date End Date Ilan Pearson MD [address] [place] [address] PCP - General Family Medicine 05/25/19 documented as of this encounter
--- OUTSIDE RECORDS SUMMARY | 2024-02-27 12:07 | XMS_ITS | Encounter Summary ---
Author Organization [facility] Health Address [address] [place] [address] Care Team Providers Care U.S. Revenue Officer Name Role Phone Ilan Pearson MD Primary Care Provider [phone] Reason for Visit * Reason Comments Establish Care facial lac Encounter Details Date Type Department Care Team (Late st Contact Info) Description 07/12/2019 11:45 AM CDT Office Visit [facility] [address] [place] [address] John Krueger MD [address] [place] [address] Closed fracture of nasal bone, initial encounter [...] Ajit Tyler 59 year old male CSN: [id number] Date of service: 07/12/2019 HPI Date of [...] Primary documented in this encounter Care Teams U.S. Revenue Officer Relationship Specialty Start Date End Date Ilan Pearson MD [address] [place] [address] PCP - General Family Medicine 05/25/19 documented as of this encounter
--- OUTSIDE RECORDS SUMMARY | 2024-02-27 12:07 | XMS_ITS | Encounter Summary ---
Author Organization [facility] Health Address [address] [facility] [place] [address] Care Team Providers Care Down Filler Name Role Phone Ilan Pearson MD Primary Care Provider [phone] Reason for Visit * Reason Comments Swallowing Problem 2 month Follow up, A lso seeing Almita Encounter Details Date Type Department Care Team (Latest Contact Info) Description 02/28/2020 11:15 AM PROSPECT MANAGER Office Visit [facility] [address] [place] [address], [place] [phone] Ernesto Aggarwal MD [address] [place] [address] [place] [address] Oropharyngeal dysphagia (Primary Dx); Vocal cord paralysis [...] Comments Blood Pressure 112/75 02/28/2020 11:48 AM PROSPECT MANAGER Pulse 87 02/28/2020 11:48 AM PROSPECT MANAGER Temperature - - Respiratory Rate - - Oxygen Saturation - - Inhaled Oxygen Concentration - - Weight 79.8 kg (176 lb) 02/28/2020 11:48 AM PROSPECT MANAGER Height 182.9 cm (6') 02/28/2020 11:48 AM PROSPECT MANAGER Body Mass Index 23.87 02/28/2020 11:48 AM PROSPECT MANAGER documented in this encounter Functional Status Functional [...] Instructions* Echo Chandler - 02/28/2020 11:35 AM PROSPECT MANAGER Thank you for visiting [facility] Otolaryngology - Head & Neck [...] an appointment, please call our office at [phone] Thursday through Thursday from 8:00 am to4:30 pm. You can also request a routine appointment through your [employer] account. ??? Prescription Refills Contact your pharmacy [...] the medical exchange at and ask the coal pulverizer operator to page the ENT physician operations leader. *Caller ID blocking service will need to be turned off for your call to be returned. We also specialize in Hearing Aids, Allergy testing, swallowing disorders, voice problems, cancer diagnosis, and so much more. Visit our website at [email or web address] for information about our practice and an interactive health encyclopedia. PECT MANAGER documented in this encounter Progress Notes * [...] asymmetry, or inflammation Septum: Good alignment Turbinates: [place], non-edematous, without discharge Mucosa: [place], healthy appearing Oral Cavity: No perioral or [...] exam -Continue swallow exercises as prescribed by ULTRASOUND SUPERVISOR Jeffrey Hall MD Otolaryngology Head & Neck [...] procedure. Follow-up with us in 2 months. PECT MANAGER * Echo Chandler - 02/28/2020 11:35 AM CST Review of Systems [facility] reports the following:Throat: pain PECT MANAGER documented in this encounter Procedure Notes * Harley Hall MD - 02/28/2020 1:09 PM CSTAssociated Order(s): PROC ENDOSCOPY-LARYNX Procedure(s): [facility] LARYNGOSCOPY,FLEX FIBER,DIAGNOSTIC Pre-Procedure Diagnose(s): Oropharyngeal dysphagia; Vocal [...] procedure. Jeffrey Hall MD Otolaryngology Resident 02/28/2020 PECT MANAGER documented in this encounter Plan of Treatment Not on file documented as of this encounter Procedures Procedure Name Priority Date/Time Associated Diagnosis Comments [facility] LARYNGOSCOPY,FLEX FIBER,DIAGNOSTIC Routine 02/28/2020 1:09 PM PROSPECT MANAGER Oropharyngeal dysphagia Vocal cord paralysis documented in this encounter Results * [facility] LARYNGOSCOPY,FLEX FIBER,DIAGNOSTIC (02/28/2020 1:09 PM PROSPECT MANAGER) Narrative Ernesto Aggarwal MD - 02/28/2020 1:09 PM PROSPECT MANAGER Harley Hall MD ? 02/28/2020 ??1:27 PM [...] unspecified documented in this encounter Care Teams Down Filler Relationship Specialty Start Date End Date Ilan Pearson MD [address] [place] [address] PCP - General Family Medicine 05/25/19 documented as of this encounter
--- OUTSIDE RECORDS SUMMARY | 2024-02-27 12:07 | XMS_ITS | Encounter Summary ---
Author Organization [facility] Health Address [address] [facility] [place] [address] Care Team Providers Care Contract Processor Name Role Phone Ilan Pearson MD Primary Care Provider [phone] Encounter Details Date Type Department Care Team (Late st Contact Info) Description 11/22/2019 11:50 AM CDT - 11/22/2019 11:59 PM CDT Hospital Encounter [facility] DIAGNOSTIC RAD CSM [address]L [address] [facility] [place] [address] French Kim MD [address] [place] [facility] [address] [place] [phone] Discharge Disposition: Home or Self Care [...] status documented in this encounter Care Teams Contract Processor Relationship Specialty Start Date End Date Ilan Pearson MD [address] [place] [address] PCP - General Family Medicine 05/25/19 documented as of this encounter
--- OUTSIDE RECORDS SUMMARY | 2024-02-27 12:07 | XMS_ITS | Encounter Summary ---
Author Organization [facility] Health Address [address] [facility] [place] [address] Care Team Providers Care Insurance Biller Name Role Phone Ilan Pearson MD Primary Care Provider [phone] Reason for Visit * Reason Comments Surgical Follow-up Cervical spine C3-4 Encounter Details Date Type Department Care Team (Late st Contact Info) Description 07/12/2019 10:00 AM CDT Office Visit [facility] - Orthopedics [address] [facility], [place] [address] French Kim MD [address] [facility] [address] [place] [address] Central cord syndrome, initial encounter [...] contact Mina Denise RN at or through [employer] if you have any further questions or concerns. [facility] Orthopaedic office contact information: Critical access hospital ([facility]) [address] [place] [address] [place] [address], [place] [address] July 12, 2019 To Whom It May Concern: Please use this letter to document that Ajit Tyler, : 1960, was in to see French Kim MD on 07/12/2019. Thank you. Sincerely, French Kim MD [facility] ORTHO [facility] documented in this encounter Progress Notes * Catina Suarez - 07/12/2019 11:35 AM CDT Chief Complaint: Chief Complaint Patient presents with ??? Surgical Follow-up Cervical spine C3-4 BP 97/61 (BP SITE: RIGHT ARM, BP POSITION: SITTING, BP CUFF SIZE: 11L) Pulse 88 SpO2 99% * Kamron Corrigan MD - 07/12/2019 11:02 AM CDT [facility] Orthopedic Spine Surgery Clinic Note Ajit Tyler, 59 year old, male : 1960 CSN: [id number] Primary Care Physician: Ilan Pearson MD Diagnosis/Procedures [...] in alignment. Dictated by Blaine Santos MD (cardiac cath lab radiology technologist). I, Dr. AL LAWTON MD have personally [...] in alignment. Dictated by Blaine Santos MD (cardiac cath lab radiology technologist). I, Dr. AL LAWTON MD have personally [...] (HCC) documented in this encounter Care Teams Insurance Biller Relationship Specialty Start Date End Date Ilan Pearson MD [address] [place] [address] PCP - General Family Medicine 05/25/19 documented as of this encounter
--- OUTSIDE RECORDS SUMMARY | 2024-02-27 12:07 | XMS_ITS | Patient Health Summary ---
Author Organization [facility] Address [address] [place] [address] Care Team Providers Care Lot Worker Name Role Phone Ilan Pearson MD Primary Care Provider [phone] Note from [facility],non-owned Affiliates and Associated Physician Practices is amultiple site organization consisting of ambulatory clinics and hospital sitesin [place], [place], [place] and [place]. This disclosure is being madepursuant to the Care Everywhere program and may not contain all information available regarding this patient. Last updated 17.[facility] Allergies * Gabapentin(Skin Reactions,Unknown) * Povidone [...] AM CDT Medical Devices Implanted Type Area Search Engine Optimizer Device Identifier Shelf Expiration Date Model / Serial / Lot Screw Set Std Spne Implanted:Qty: 8 on 05/27/2019 by Esperanza Kim MD at [facility] [employer] [id number] / / Screw 4.5mm 20mm Ma Spne Oc Upr Thor Implanted:Qty: 1 on 05/27/2019 by Esperanza Kim MD at [facility] [employer] Spine [id number] / / Screw 4.5mm 26mm Ma Spne Bone Implanted:Qty: 1 on 05/27/2019 by Esperanza Kim MD at [facility] [employer] Spine [id number] / / Screw 3.5mm 20mm Ma Spne Bone Implanted:Qty: 4 on 05/27/2019 by Esperanza Kim MD at [facility] [employer] [id number] / / Screw 4.5mm 22mm Ma Spne Bone Implanted:Qty: 2 on 05/27/2019 by Esperanza Kim MD at [facility] Med[employer] Sofamor [employer]ane[employer] Spine [id number] / / Slnt Dura Duraseal Pg Trilysine Amine 5 Implanted:Qty: 1 on 05/27/2019 by Esperanza Kim MD at [facility] Integra [employer] Koko 06/15/2020 [id number] / / [id number] Usman Spnl 60mm 3.5mm Pcut Implanted:Qty: 2 on 05/27/2019 by Esperanza Kim MD at [facility] [employer] Sof[employer]or [employer]ane[employer] Spine [id number] / / Procedures * XR LUMBAR SPINE 4VW OR MORE(Performed 05/30/2020) Performed for Chronic midline low back pain, unspecified whether sciatica present * XR CERVICAL SPINE 2 OR 3VW(Performed 05/30/2020) Performed for Central cord syndrome, subsequent encounter (HCC) * PROC CERUMEN REMOVAL(Performed 03/27/2020) Performed for Bilateral impacted cerumen * MS LARYNGOSCOPY,FLEX FIBER,DIAGNOSTIC(Performed 03/27/2020) Performed for Vocal cord paralysis * MS LARYNGOSCOPY,FLEX FIBER,DIAGNOSTIC(Performed 02/28/2020) Performed for Oropharyngeal dysphagia, Vocal cord paralysis * MS LARYNGOSCOPY,FLEX FIBER,DIAGNOSTIC(Performed 01/10/2020) Performed for Dysphagia, unspecified type * XR CERVICAL SPINE 2 OR 3VW(Performed 11/22/2019) Performed for S/P cervical spinal fusion * FL SWALLOWING FUNCTION STUDY(Performed 11/14/2019) Performed for Dysphagia, unspecified type * MS LARYNGOSCOPY,FLEX FIBER,DIAGNOSTIC(Performed 09/22/2019) Performed for Dysphagia, unspecified [...] cervical vertebra, unspecified fracture morphology, initial encounter ([facility]) * BLOOD GASES ART COMPLETE SLH [...] cervical vertebra, unspecified fracture morphology, initial encounter ([facility]) * ABO TYPE: RETYPE-PATIENT RESULT ONLY(Performed [...] deformity. Report dictated by Tereso Torres MD (vice president talent management). I, Dr. SUSAN CHAN have personally reviewed [...] deformity. Report dictated by Tereso Torres MD (vice president talent management). I, Dr. SUSAN CHAN have personally reviewed [...] deformity. Report dictated by Tereso Torres MD (vice president talent management). I, Dr. SUSAN CHAN have personally reviewed [...] deformity. Report dictated by Tereso Torres MD (vice president talent management). I, Dr. SUSAN CHAN have personally reviewed and interpreted this examination/study. This report was electronically signed by SUSAN CHAN on 05/31/2020 8:00 AM . Sachin Bloom MD DIAGNOSTIC IMAGING O RDERABLES * PROC CERUMEN REMOVAL (03/27/2020 12:36 PM AREA SUPERVISOR) Narrative Kalen Mcfarlane MD - 03/27/2020 12:36 PM AREA SUPERVISOR Kalen Mcfarlane MD ? 03/27/2020 ??1:05 PM [...] Aggarwal MD PROCEDURE/MINOR SURG ICAL ORDERABLES * MS LARYNGOSCOPY,FLEX FIBER,DIAGNOSTIC (03/27/2020 12:33 PM AREA SUPERVISOR) Narrative Kalen Mcfarlane MD - 03/27/2020 12:33 PM AREA SUPERVISOR Kalen Mcfarlane MD ? 03/27/2020 ??1:05 PM [...] Aggarwal MD PROCEDURE/MINOR SURG ICAL ORDERABLES * MS LARYNGOSCOPY,FLEX FIBER,DIAGNOSTIC (02/28/2020 1:09 PM AREA SUPERVISOR) Narrative Ernesto Aggarwal MD - 02/28/2020 1:09 PM AREA SUPERVISOR Harley Hall MD ? 02/28/2020 ??1:27 PM [...] Aggarwal MD PROCEDURE/MINOR SURG ICAL ORDERABLES * MS LARYNGOSCOPY,FLEX FIBER,DIAGNOSTIC (01/10/2020 1:11 PM AREA SUPERVISOR) Narrative Ernesto Aggarwal MD - 01/10/2020 1:11 PM AREA SUPERVISOR Ernesto Aggarwal MD ? 01/10/2020 ??1:12 PM Procedure Note Endoscopy Type: ??Laryngoscopy without stroboscopy 32611 Endoscope: Flexible 4mm Scope Anesthesia: Lidocaine 2% [...] for details. Dictated by Jalen Gooden MD (vice president talent management). IDr. PRICILLA have personally reviewed and interpreted [...] for details. Dictated by Jalen Gooden MD (vice president talent management). Dr. PRICILLA Barnes have personally reviewed and interpreted this examination/study. This report was electronically signed by PRICILLA MANCILLA on 11/18/20191:37 PM . Ernesto Aggarwal MD FLUOROSCOPY ORDERABL ES * MS LARYNGOSCOPY,FLEX FIBER,DIAGNOSTIC (09/22/2019 11:04 AM CDT) Narrative [...] - 10.7 x10E9/L 07/07/2019 7:06 AM CDT [facility] RBC 4.43 3.80 - 5.40 x10E12/L 07/07/2019 7:06 AM CDT [facility] Hemoglobin 12.2 12.0 - 17.6 gm/dL 07/07/2019 7:06 AM CDT [facility] Hematocrit 38.2 35.2 - 51.7 % 07/07/2019 7:06 AM CDT [facility] MCV 86.2 80.7 - 98.3 fl 07/07/2019 7:06 AM CDT [facility] MCH 27.5 26.7 - 34.0 pg 07/07/2019 7:06 AM CDT [facility] MCHC 31.9 30.8 - 35.9 gm/dL 07/07/2019 7:06 AM CDT [facility] Platelet Count 342 153 - 416 x10E9/L 07/07/2019 7:06 AM CDT [facility] RDW-CV 13.0 12.1 - 14.9 % 07/07/2019 7:06 AM CDT [facility] MPV 10.5 9.4 - 12.9 fl 07/07/2019 7:06 AM CDT [facility] Blood BLOOD SPECIMEN / Unknown 07/07/2019 4:59 AM CDT 07/07/2019 6:56 AM CDT Catalina Patricia CHASSIS MECHANIC-PROFESSIONAL PROGRAMMER ANALYST LAB - HEMATOLOGY ORDERABLES Performing Organization Address City/State/[facility] Co de Phone Number [facility] [address] [place] [address] * (ABNORMAL) BASIC METABOLIC PANEL (CALCIUM TOTAL) (07/07/2019 4:59 AM CDT) Only the most recent of20 resultswithin the time period is included. [facility] Glucose 84 70 - 105 mg/dL 07/07/2019 7:59 AM CDT [facility] Sodium 138 136 - 145 mmol/L 07/07/2019 7:59 AM CDT [facility] Potassium 4.0 3.5 - 5.1 mmol/L 07/07/2019 7:59 AM CDT [facility] Chloride 102 98 - 107 mmol/L 07/07/2019 7:59 AM CDT [facility] CO2 24 23 - 31 mmol/L 07/07/2019 7:59 AM CDT [facility] Calcium 9.0 8.4 - 10.4 mg/dL 07/07/2019 7:59 AM CDT [facility] Anion Gap 12 8 - 16 mmol/L 07/07/2019 7:59 AM CDT [facility] BUN 10 8.4 - 25.7 mg/dL 07/07/2019 7:59 AM CDT [facility] Creatinine 0.60(L) 0.72 - 1.25 mg/dL 07/07/2019 7:59 AM CDT [facility] eGFR by MDRD >60 >60 mL/min/1.7 3m2 07/07/2019 7:59 AM CDT [facility] eGFR by MDRD >60 >60 mL/min/1.7 3m2 07/07/2019 7:59 AM CDT [facility] Blood BLOOD SPECIMEN / Unknown 07/07/2019 4:59 AM CDT 07/07/2019 6:56 AM CDT Catalina Patricia CHASSIS MECHANIC-PROFESSIONAL PROGRAMMER ANALYST LAB - CHEMISTRY O RDERABLES [facility] [address] [place] [address] * CBC W AUTO DIFFERENTIAL (07/04/2019 5:35 AM CDT) Only the most recent of18 resultswithin the time period is included. WBC 7.1 4.4 - 10.7 x10E9/L 07/04/2019 8:03 AM CDT [facility] WBC Corrected 07/04/2019 8:03 AM CDT [facility] RBC 4.45 3.80 - 5.40 x10E12/L 07/04/2019 8:03 AM CDT [facility] Hemoglobin 12.4 12.0 - 17.6 gm/dL 07/04/2019 8:03 AM CDT [facility] Hematocrit 38.1 35.2 - 51.7 % 07/04/2019 8:03 AM CDT [facility] MCV 85.6 80.7 - 98.3 fl 07/04/2019 8:03 AM CDT [facility] MCH 27.9 26.7 - 34.0 pg 07/04/2019 8:03 AM CDT [facility] MCHC 32.5 30.8 - 35.9 gm/dL 07/04/2019 8:03 AM CDT [facility] Platelet Count 303 153 - 416 x10E9/L 07/04/2019 8:03 AM CDT [facility] RDW-CV 13.1 12.1 - 14.9 % 07/04/2019 8:03 AM CDT [facility] MPV 10.7 9.4 - 12.9 fl 07/04/2019 8:03 AM CDT [facility] Neutrophils % 62.5 44.0 - 73.0 % 07/04/2019 8:03 AM T [facility] Lymphocytes % 24.5 20.0 - 43.0 % 07/04/2019 8:03 AM CDT [facility] Monocytes % 8.6 5.0 - 13.0 % 07/04/2019 8:03 AM CDT [facility] Eosinophils % 3.2 0.0 - 6.0 % 07/04/2019 8:03 AM CDT [facility] Basophils % 0.4 0.0 - 2.0 % 07/04/2019 8:03 AM CDT [facility] Immature Granulocytes 0.8 0 - 1 % 07/04/2019 8:03 AM CDT [facility] Neutrophil Absolute 4.44 2.01 - 7.14 x10E9/L 07/04/2019 8:03 AM CDT [facility] Lymphocytes Absolute 1.74 1.07 - 3.94 x10E9/L 07/04/2019 8:03 AM CDT [facility] Monocytes Absolute 0.61 0.26 - 1.07 x10E9/L 07/04/2019 8:03 AM CDT [facility] Eosinophils Absolute 0.23 0 - 0.47 x10E9/L 07/04/2019 8:03 AM CDT [facility] Basophils Absolute 0.03 0 - 0.08 x10E9/L 07/04/2019 8:03 AM CDT [facility] Immature Granulocytes Absolute 0.06 0.00 - 0.06 x10E9/L 07/04/2019 8:03 AM CDT [facility] nRBC Auto 0 /100 WBC 07/04/2019 8:03 AM CDT [facility] Blood BLOOD SPECIMEN / Unknown 07/04/2019 5:35 AM CDT 07/04/2019 6:32 AM CDT Toma Mcfarlane CHASSIS MECHANIC-PROFESSIONAL PROGRAMMER ANALYST LAB - HEMATOLOGY ORDERABLES Performing Organization Address [facility] Co de Phone Number [facility] [address] [place], [place] [phone] * URINE MICROSCOPIC ONLY REFLEX TO CULTURE (06/22/2019 7:59 PM CDT) Only the most recent of4 resultswithin the time period is included. Reflex Status Culture not indicated 06/23/2019 6:50 AM CDT [facility] RBC UA 0-2 None Seen, 0-2, 3-5 # /hpf 06/23/2019 6:50 AM CDT [facility] WBC UA 0-5 None Seen, 0-5 # /hpf 06/23/2019 6:50 AM CDT [facility] Bacteria UA None Seen None Seen 06/23/2019 6:50 AM CDT [facility] Squamous Epithelial Cells None Seen None Seen, 0-2, 3-5 /hpf 06/23/2019 6:50 AM CDT [facility] Urine URINE SPECIMEN COLLECTION, CATHETERIZED / Unknown 06/22/2019 7:59 PM CDT 06/23/2019 6:43 AM CDT Narrative [facility] - 06/23/2019 6:50 AM CDT Chris Sousa MD LAB - URINALYSIS ORD ERABLES Performing Organization Address City/[facility]/ZIP Co de Phone Number [facility] [address] [place] [address] * (ABNORMAL) URINALYSIS REFLEX MICROSCOPIC REFLEX CULTURE (06/22/2019 7:59 PM CDT) Only the most recent of5 resultswithin the time period is included. Color UA Straw Straw, Yellow 06/23/2019 6:49 AM CDT [facility] Clarity UA Clear Clear 06/23/2019 6:49 AM CDT [facility] Glucose UA Negative Negative 06/23/2019 6:49 AM CDT [facility] Bilirubin UA Negative Negative 06/23/2019 6:49 AM CDT [facility] Ketone UA Negative Negative 06/23/2019 6:49 AM CDT [facility] Specific [place] UA 1.008 1.005 - 1.030 06/23/2019 6:49 AM CDT [facility] Blood UA 1+(A) Negative 06/23/2019 6:49 AM CDT [facility] pH UA 6.0 5.0 - 8.0 pH 06/23/2019 6:49 AM CDT [facility] Protein UA Negative Negative 06/23/2019 6:49 AM CDT [facility] Urobilinogen UA Negative Negative mg/dL 06/23/2019 6:49 AM CDT [facility] Nitrite UA Negative Negative 06/23/2019 6:49 AM CDT [facility] Leukocyte UA Negative Negative 06/23/2019 6:49 AM CDT [facility] Urine Microscopy Urine microscopy to follow 06/23/2019 6:49 AM CDT [facility] Reflex Status Culture not indicated 06/23/2019 6:49 AM CDT [facility] Urine URINE SPECIMEN COLLECTION, CATHETERIZED / Unknown 06/22/2019 7:59 PM CDT 06/23/2019 6:43 AM CDT Narrative [facility] - 06/23/2019 6:49 AM CDT Chris Sousa MD LAB - URINALYSIS ORD ERABLES [facility] [address] [place] [address] * XR ABDOMEN KUB (06/17/2019 [...] Rapid Negative Negative 06/16/2019 6:21 PM CDT [facility] Microbiology ENTIRE THROAT (SURFACE REGION OF NECK) / Unknown Collection / Unknown 06/16/2019 5:18 PM CDT 06/16/2019 6:10 PM CDT Narrative [facility] - 06/16/2019 6:21 PM CDT Test has reflexed to a Strep A culture. Toma Mcfarlane CHASSIS [facility] LAB - MICROBIOLOG Y ORDERABLES Performing Organization Address City/[facility]/ZIP Co de Phone Number [facility] [address] [place] [address] * CULTURE STREP GROUP A (06/16/2019 5:18 PM CDT) Culture Negative for beta-hemolytic Streptococcus Group A JHOANA 06/18/2019 10:36 AM CDT [facility] Microbiology ENTIRE THROAT (SURFACE REGION OF NECK) / Unknown Collection / Unknown 06/16/2019 5:18 PM CDT 06/16/2019 6:10 PM CDT Toma Mcfarlane APRN-[facility] LAB - MICROBIOLOG Y ORDERABLES [facility] [address] [place] [address], [facility] [phone] * CARDIAC EKG ORDER (06/13/2019 5:41 PM CDT) Narrative 06/13/2019 5:41 PM CDT Ordered by an unspecified provider. Scanned Document CARDIAC SERVICES ORD ERABLES * PROCALCITONIN LEVEL (06/09/2019 4:29 AM CDT) Only the most recent of2 resultswithin the time period is included. Procalcitonin 0.05 <0.10 ng/mL 06/09/2019 5:34 AM CDT [facility] Blood BLOOD SPECIMEN / Unknown Lab Venipuncture / Unknown 06/09/2019 4:29 AM CDT 06/09/2019 4:50 AM CDT Narrative [facility] - 06/09/2019 5:34 [...] Change in Procalcitonin Calculator is available at [email or web address] ?? If clinical picture has not improved and PCT remains high, reevaluate and consider treatment failure or other causes. Mayco Tejeda III, MD LAB - CHEM ISTRY ORDERABLES [facility] [address] [place] [address] * (ABNORMAL) ERYTHROCYTE SEDIMENTATION RATE (06/09/2019 4:29 AM CDT) Erythrocyte Sedimentation Rate Automated 26(H) 0 - 20 MM/HR 06/09/2019 6:12 AM CDT [facility] Blood BLOOD SPECIMEN / Unknown Lab Venipuncture / Unknown 06/09/2019 4:29 AM CDT 06/09/2019 4:50 AM CDT Mayco Tejeda III, MD LAB - YESENIA TOLOGY ORDERABLES Performing Organization Address City/[facility]/ZIP Co de Phone Number [facility] [address] [place] [address] * XR CHEST PA AND LATERAL (06/08/2019 [...] - 2.6 mg/dL 06/08/2019 8:55 AM CDT [facility] Blood BLOOD SPECIMEN / Unknown Lab Venipuncture / Unknown 06/08/2019 4:49 AM CDT 06/08/2019 4:56 AM CDT Mayco Tejeda III, MD LAB - CHEM ISTRY ORDERABLES Performing Organization Address [facility] Co de Phone Number [facility] [address] [place] [address] * VANCOMYCIN LEVEL RANDOM (06/08/2019 4:49 AM CDT) Pathologist [facility] Vancomycin Random 6.9 ug/mL 06/08/2019 5:28 AM CDT [facility] Blood BLOOD SPECIMEN / Unknown Lab Venipuncture / Unknown 06/08/2019 4:49 AM CDT 06/08/2019 4:56 AM CDT Narrative [facility] - 06/08/2019 5:28 AM CDT No reference range available for random Vancomycin levels. All results interpreted by ordering physician. Callie Estrada MD LAB - CHEMISTRY ALEXIS DEVRIES Performing Organization Address [facility] Co de Phone Number [facility] [address] [place] [address] * TROPONIN I (06/06/2019 8:34 PM CDT) Only the most recent of2 resultswithin the time period is included. Pathologist [facility] Troponin I <0.010 <0.038 ng/mL 06/06/2019 9:01 PM CDT [facility] Blood BLOOD SPECIMEN / Unknown Venipuncture / Unknown 06/06/2019 8:34 PM CDT 06/06/2019 8:37 PM CDT Patsy Tuttle MD LAB - CHEMISTRY ALEXIS DEVRIES Performing Organization Address City/[facility]/ZIP Co de Phone Number [facility] [address] [place], [place] [phone] * SODIUM URINE RANDOM (06/06/2019 5:48 PM CDT) Sodium Urine 38 mmol/L 06/06/2019 6:15 PM CDT [facility] Urine URINE SPECIMEN OBTAINED BY CLEAN CATCH PROCEDURE / Unknown Collection / Unknown 06/06/2019 5:48 PM CDT 06/06/2019 5:48 PM CDT Chris Sousa MD LAB - URINE CHEMISTR Y ORDERABLES Performing Organization Address [facility] Co de Phone Number [facility] [address] [place] [phone] * POTASSIUM URINE RANDOM (06/06/2019 5:48 PM CDT) Potassium Urine 32.0 mmol/L 06/06/2019 6:15 PM CDT [facility] Urine URINE SPECIMEN OBTAINED BY CLEAN CATCH PROCEDURE / Unknown Collection / Unknown 06/06/2019 5:48 PM CDT 06/06/2019 5:48 PM CDT Chris Sousa MD LAB - URINE CHEMISTR Y ORDERABLES Performing Organization Address [facility] de Phone Number [facility] [address] [place] [address] * (ABNORMAL) OSMOLALITY BLOOD (06/06/2019 5:48 PM CDT) Osmolality 267(L) 280 - 300 mOsm/kg 06/06/2019 6:08 PM CDT [facility] Blood BLOOD SPECIMEN / Unknown Venipuncture / Unknown 06/06/2019 5:48 PM CDT 06/06/2019 5:48 PM CDT Chris Sousa MD LAB - CHEMISTRY ORDBlanca DVERIES Performing Organization Address [facility] Co de Phone Number [facility] [address] [place] [address] * CHLORIDE URINE RANDOM (06/06/2019 5:48 PM CDT) Chloride Urine 50.0 mmol/L 06/06/2019 6:14 PM CDT [facility] Urine URINE SPECIMEN OBTAINED BY CLEAN CATCH PROCEDURE / Unknown Collection / Unknown 06/06/2019 5:48 PM CDT 06/06/2019 5:48 PM CDT Chris Sousa MD LAB - URINE CHEMISTR Y ORDERABLES [facility] [address] [place] [address] * XR CHEST 1VW PORTABLE (06/06/2019 5:05 [...] day 5 JHOANA 06/11/2019 9:[address] [facility] Blood PERIPHERAL BLOOD / Unknown Venipuncture / Unknown 06/06/2019 4:49 PM CDT 06/06/2019 5:04 PM CDT Patsy Tuttle MD LAB - MICROBIOLOGY O RDSMITH [facility] [address] [place], [place] [address], [facility] [phone] * (ABNORMAL) INTERLEUKIN-6 (06/06/2019 4:48 PM CDT) IL-6 17.9(H) 0.0 - 15.5 pg/mL 06/09/2019 3:07 PM CDT [facility] ([facility]) Comment: Results for this test are for research purposes only by the assay's cut off tender glass. ??The performance characteristics of this product have not been established. ??Results should not be used as a diagnostic procedure without confirmation of the diagnosis by another medically established diagnostic product or procedure. Blood BLOOD SPECIMEN / Unknown Venipuncture / Unknown 06/06/2019 4:48 PM CDT 06/06/2019 5:01 PM CDT Narrative [facility] ([facility]) - 06/09/2019 3:07 PM CDT Performed at: ??01 - [facility] [address] ??[id number] Tool Crib Manager: Rocío Allison MD, Phone: ??[phone] Patsy Tuttle MD LAB - CHEMISTRY ALEXIS DEVRIES Performing Organization Address City/[facility]/ZIP Co de Phone Number [facility] ([facility]) [address] [place] [address] * (ABNORMAL) C-REACTIVE PROTEIN (06/06/2019 4:48 PM CDT) C-Reactive Protein 7.90(H) <=0.50 mg/dL 06/06/2019 5:20 PM CDT [facility] Blood BLOOD SPECIMEN / Unknown Venipuncture / Unknown 06/06/2019 4:48 PM CDT 06/06/2019 5:01 PM CDT Patsy Tuttle MD LAB - CHEMISTRY ALEXIS DEVRIES [facility] [address] [place] [address] * PTT (06/06/2019 4:48 PM CDT) PTT 38.1 23.0 - 38.4 sec 06/06/2019 5:21 PM CDT [facility] Blood BLOOD SPECIMEN / Unknown Venipuncture / Unknown 06/06/2019 4:48 PM CDT 06/06/2019 5:01 PM CDT Narrative [facility] - 06/06/2019 5:21 PM CDT Heparin Therapeutic Range for PTT: ??71.0 - 109.0 seconds. Patsy Tuttle MD LAB - COAGULATION OR DERABLES Performing Organization Address [facility] de Phone Number [facility] [address] [place] [phone] * (ABNORMAL) PT-INR (06/06/2019 4:48 PM CDT) Pathologist [facility] PT 14.6 12.1 - 14.8 sec 06/06/2019 5:20 PM CDT [facility] INR 1.2(H) 0.9 - 1.1 06/06/2019 5:20 PM CDT [facility] Blood BLOOD SPECIMEN / Unknown Venipuncture / Unknown 06/06/2019 4:48 PM CDT 06/06/2019 5:01 PM CDT Narrative [facility] - 06/06/2019 5:20 PM CDT Conventional Warfarin Anticoagulant Therapy: INR Reference Range: ??2.0-3.0 Intensive Warfarin Anticoagulant Therapy: INR Reference Range: ? 2.5-3.5 Patsy Tuttle MD LAB - COAGULATION OR DERABLES Performing Organization Address [facility] Co de Phone Number [facility] [address] [place] [address] [phone] * B-TYPE NATRIURETIC PEPTIDE (06/06/2019 4:48 PM CDT) Pathologist [facility] BNP 23 <=100 pg/mL 06/06/2019 5:27 PM CDT [facility] Blood BLOOD SPECIMEN / Unknown Venipuncture / Unknown 06/06/2019 4:48 PM CDT 06/06/2019 5:01 PM CDT Patsy Tuttle MD LAB - CHEMISTRY ALEXIS DEVRIES [facility] [address] [place] [address] * (ABNORMAL) COMPREHENSIVE METABOLIC PANEL (06/06/2019 4:48 PM CDT) Only the most recent of2 resultswithin the time period is included. Glucose 103 70 - 105 mg/dL 06/06/2019 5:20 PM CDT [facility] Sodium 126(L) 136 - 145 mmol/L 06/06/2019 5:20 PM CDT [facility] Potassium 2.7(L) 3.5 - 5.1 mmol/L 06/06/2019 5:20 PM CDT [facility] Chloride 92(L) 98 - 107 mmol/L 06/06/2019 5:20 PM CDT [facility] CO2 23 23 - 31 mmol/L 06/06/2019 5:20 PM CDT [facility] Calcium 7.8(L) 8.4 - 10.4 mg/dL 06/06/2019 5:20 PM CDT [facility] Anion Gap 11 8 - 16 mmol/L 06/06/2019 5:20 PM CDT [facility] BUN 14 8.4 - 25.7 mg/dL 06/06/2019 5:20 PM CDT [facility] Creatinine 0.69(L) 0.72 - 1.25 mg/dL 06/06/2019 5:20 PM CDT [facility] Alkaline Phosphatase 107 40 - 150 U/L 06/06/2019 5:20 PM CDT [facility] ALT 47 0 - 61 U/L 06/06/2019 5:20 PM CDT [facility] AST 46(H) 5 - 34 U/L 06/06/2019 5:20 PM CDT [facility] Protein Total 6.0(L) 6.4 - 8.3 gm/dL 06/06/2019 5:20 PM CDT [facility] Albumin 3.2(L) 3.5 - 5.2 gm/dL 06/06/2019 5:20 PM CDT [facility] Bilirubin Total 0.4 0.2 - 1.2 mg/dL 06/06/2019 5:20 PM CDT [facility] eGFR by MDRD >60 >60 mL/min/1.7 3m2 06/06/2019 5:20 PM CDT [facility] eGFR by MDRD >60 >60 mL/min/1.7 3m2 06/06/2019 5:20 PM CDT [facility] Blood BLOOD SPECIMEN / Unknown Venipuncture / Unknown 06/06/2019 4:48 PM CDT 06/06/2019 5:01 PM CDT Patsy Tuttle MD LAB - CHEMISTRY ALEXIS DEVRIES Performing Organization Address City/[facility]/ZIP Co de Phone Number [facility] [id number] [place] [address] [phone] * (ABNORMAL) LDH BLOOD (06/06/2019 4:48 PM CDT) LDH 232(H) 125 - 220 U/L 06/06/2019 5:20 PM CDT [facility] Blood BLOOD SPECIMEN / Unknown Venipuncture / Unknown 06/06/2019 4:48 PM CDT 06/06/2019 5:01 PM CDT Patsy Tuttle MD LAB - CHEMISTRY ALEXIS DVERIES Performing Organization Address [facility]/ZIP Co de Phone Number [facility] [id number] [place] [phone] * (ABNORMAL) LACTIC ACID BLOOD (06/06/2019 4:48 PM CDT) Only the most recent of2 resultswithin the time period is included. Lactic Acid 0.48(L) 0.5 - 2.2 mmol/L 06/06/2019 5:17 PM CDT [facility] Blood BLOOD SPECIMEN / Unknown Venipuncture / Unknown 06/06/2019 4:48 PM CDT 06/06/2019 5:04 PM CDT Patsy Tuttle MD LAB - CHEMISTRY ALEXIS DEVRIES Performing Organization Address [facility] Co de Phone Number [facility] [address] [place] [address] * CK BLOOD (06/06/2019 4:48 PM CDT) CK 74 30 - 200 U/L 06/06/2019 5:20 PM CDT [facility] Blood BLOOD SPECIMEN / Unknown Venipuncture / Unknown 06/06/2019 4:48 PM CDT 06/06/2019 5:01 PM CDT Patsy Tuttle MD LAB - CHEMISTRY ALEXIS DEVRIES Performing Organization Address [facility] Co de Phone Number [facility] [address] [place] [id number] * FERRITIN (06/06/2019 4:48 PM CDT) Only the most recent of2 resultswithin the time period is included. Pathologist [facility] Ferritin 258 22 - 275 ng/mL 06/06/2019 5:42 PM CDT [facility] Blood BLOOD SPECIMEN / Unknown Venipuncture / Unknown 06/06/2019 4:48 PM CDT 06/06/2019 5:01 PM CDT Patsy Tuttle MD LAB - CHEMISTRY ALEXIS DEVRIES Performing Organization Address [facility] Co de Phone Number [facility] [phone] [place] [phone] * EKG 12-LEAD (06/06/2019 4:27 PM CDT) Ventricular Rate 67 BPM [facility] MUSE Atrial Rate 67 BPM [facility] P-R Interval 156 ms [facility] QRS Duration ms 86 ms [facility] Q-T Interval ms 462 ms [facility] QTC Calculation (Bezet) 488 ms [facility] MUSE Calculated P [place] 35 degrees [facility] MUSE Calculated R [place] 23 degrees [facility] MUSE Calculated T [place] -5 degrees [facility] MUSE Interpretation EKG Normal sinus rhythm ST & T wave abnormality, consider inferior ischemia Abnormal ECG No previous ECGs available Confirmed by Jamee, Salman ([id number]) on 06/07/2019 12:44:36 PM DP MUSE 06/06/2019 4:27 PM CDT 06/07/2019 12:44 PM CDT Patsy Tuttle MD ECG ORDERABLES Performing Organization Address [facility] Co de Phone Number [facility] M[facility] * SARS-COV-2 (COVID-19) IN HOUSE (06/06/2019 1:01 PM CDT) COVID-19 PCR Not detected Not detected, Invalid 06/07/2019 6:09 AM CDT [facility] Microbiology SPECIMEN FROM NASOPHARYNGEAL STRUCTURE / Unknown 06/06/2019 1:01 PM CDT 06/06/2019 1:01 PM CDT Narrative [facility] - 06/07/2019 6:09 AM CDT This Real Time RT-PCR assay was developed and its performance characteristics determined by [facility]. This test has been authorized [...] - MICROBIOLOGY O RDERABLES Performing Organization Address City/[facility]/ZIP Co de Phone Number [facility] [address] [place] [address], [facility] [phone] * RESPIRATORY PATHOGEN PANEL BY PCR (06/06/2019 1:01 PM CDT) Adenovirus PCR Not detected Not detected, Invalid, Indeterminate 06/06/2019 8:32 PM CDT [facility] Coronavirus PCR Not detected Not detected, Invalid, Indeterminate 06/06/2019 8:32 PM CDT [facility] Human Metapneumovirus PCR Not detected Not detected, Invalid, Indeterminate 06/06/2019 8:32 PM CDT [facility] Human Rhinovirus/Entero virus PCR Not detected Not detected, Invalid, Indeterminate 06/06/2019 8:32 PM CDT [facility] Influenza A PCR Not detected Not detected, Equivocal, Invalid, Indeterminate 06/06/2019 8:32 PM CDT [facility] Influenza B PCR Not detected Not detected, Invalid, Indeterminate 06/06/2019 8:32 PM CDT [facility] Parainfluenza Virus 1 PCR Not detected Not detected, Invalid, Indeterminate 06/06/2019 8:32 PM CDT [facility] Parainfluenza Virus 2 PCR Not detected Not detected, Invalid, Indeterminate 06/06/2019 8:32 PM [facility] Parainfluenza Virus 3 PCR Not detected Not detected, Invalid, Indeterminate 06/06/2019 8:32 PM CDT [facility] Parainfluenza Virus 4 PCR Not detected Not detected, Invalid, Indeterminate 06/06/2019 8:32 PM T [facility] Respiratory Syncytial Virus PCR Not detected Not detected, Invalid, Indeterminate 06/06/2019 8:32 PM T [facility] Bordetella pertussis PCR Not detected Not detected, Invalid 06/06/2019 8:32 PM T [facility] Chlamydia pneumoniae PCR Not detected Not detected, Invalid, Indeterminate 06/06/2019 8:32 PM T [facility] Mycoplasma pneumoniae PCR Not detected Not detected, Invalid, Indeterminate 06/06/2019 8:32 PM T [facility] Microbiology SPECIMEN FROM NASOPHARYNGEAL STRUCTURE / Unknown 06/06/2019 1:01 PM CDT 06/06/2019 1:01 PM CDT [facility] - 06/06/2019 8:32 PM CDT This test is able to detect the following human coronaviruses: HKU1, NL63, 229E, and OC43. It will NOT detect 2019 Novel Coronavirus (2019-nCoV). If 2019-nCoV is suspected contact Infection Prevention for isolation and testing guidance. Chris Sousa MD LAB - MICROBIOLOGY O RDERABLES Performing Organization Address [facility] Co de Phone Number [facility] [address] [place] [address], [facility] [phone] * CULTURE STOOL+ E COLI SHIGA-LIKE TOXIN (06/06/2019 10:01 AM CDT) Culture No growth Salmonella, Shigella, Campylobacter, Escherichia coli O157:h7 or Yersinia JHOANA 06/08/2019 8:[address] [facility] Culture Negative Escherichia coli Shiga-like toxin (NM) JHOANA 06/08/2019 8:58 AM CDT [facility] Culture No normal enteric gram-negative bacilli isolated JHOANA 06/08/2019 8:58 AM CDT [facility] Stool STOOL SPECIMEN / Unknown 06/06/2019 10:01 AM CDT 06/06/2019 11:19 AM CDT Catalina Patricia APRN-PROFESSIONAL PROGRAMMER ANALYST LAB - MICROBIOLOG Y ORDERABLES Performing Organization Address [facility] de Phone Number [facility] [address] [place] [address], [facility] [phone] * C DIFFICILE GDH AG + TOXIN A+B (06/06/2019 10:01 AM CDT) GDH Antigen Negative Negative, Invalid 06/06/2019 8:49 PM CDT [facility] C difficile Toxin A + B Negative Negative, Invalid 06/06/2019 8:[address] [facility] Interpretation C difficile Negative for toxigenic C. difficile Negative for toxigenic C. difficile 06/06/2019 8:[address] [facility] Stool STOOL SPECIMEN / Unknown 06/06/2019 10:01 AM CDT 06/06/2019 11:19 AM CDT Catalina Patricia CHASSIS MECHANIC-PROFESSIONAL PROGRAMMER ANALYST LAB - MICROBIOLOG Y ORDERABLES Performing Organization Address [facility] Co de Phone Number [facility] [address] [place] [address], [facility] [phone] * (ABNORMAL) IRON + TRANSFERRIN PANEL (06/01/2019 3:59 AM CDT) Iron 37(L) 65 - 175 ug/dL 06/01/2019 10:27 PM CDT [facility] Transferrin 162(L) 174 - 364 mg/dL 06/01/2019 10:27 PM CDT [facility] TIBC Calculated 203(L) 240 - 450 ug/ml 06/01/2019 10:27 PM CDT [facility] Iron Saturation % 18(L) 20 - 50 % 06/01/2019 10:27 PM CDT [facility] Blood BLOOD SPECIMEN / Unknown Venipuncture / Unknown 06/01/2019 3:59 AM CDT 06/01/2019 10:14 PM CDT Chris Sousa MD LAB - CHEMISTRY ALEXIS DEVRIES Performing Organization Address [facility] Co de Phone Number [facility] [address] [place] [phone] * PHOSPHORUS BLOOD (05/30/2019 11:48 PM CDT) Only the most recent of6 resultswithin the time period is included. Pathologist [facility] Phosphorus 3.5 2.3 - 4.7 mg/dL 05/31/2019 12:23 AM CDT [facility] Blood BLOOD SPECIMEN / Unknown Lab Venipuncture / Unknown 05/30/2019 11:48 PM CDT 05/30/2019 11:57 PM CDT Sangeetha Berman MD LAB - CHEMISTRY ALEXIS DEVRIES Performing Organization Address [facility] Co de Phone Number [facility] [address] [place] [address], [facility] [phone] * (ABNORMAL) URINALYSIS REFLEX TO MICROSCOPIC NO CULTURE (05/29/2019 11:29 AM CDT) Only the most recent of2 resultswithin the time period is included. Pathologist [facility] Color UA Yellow Straw, Yellow, Colorless 05/29/2019 11:55 AM [facility] Clarity UA Clear Clear, t Cloudy 05/29/2019 11:55 AM [facility] Specific [place] UA 1.019 1.005 - 1.030 05/29/2019 11:55 AM [facility] pH UA 6.0 5.0 - 8.0 pH 05/29/2019 11:55 AM [facility] Protein UA Negative Negative mg/dL 05/29/2019 11:55 AM [facility] Glucose UA Negative Negative mg/dL 05/29/2019 11:55 AM [facility] Ketone UA Trace(A) Negative mg/dL 05/29/2019 11:55 AM [facility] Bilirubin UA Negative Negative mg/dL 05/29/2019 11:55 AM [facility] Blood UA 2+(A) Negative 05/29/2019 11:55 AM [facility] Nitrite UA Negative Negative 05/29/2019 11:55 AM [facility] Leukocyte Esterase Negative Negative 05/29/2019 11:55 AM [facility] Urobilinogen UA 4.0(A) Negative mg/dL 05/29/2019 11:55 AM [facility] RBC UA 6-10(A) None Seen, 0-2, 3-5 /HPF 05/29/2019 11:55 AM [facility] WBC UA 0-5 None Seen, 0-5 /HPF 05/29/2019 11:55 AM [facility] Squamous Epithelial Cells UA None Seen None Seen, 0-2 /HPF 05/29/2019 11:55 AM [facility] Mucus UA 1+ None, 1+ /LPF 05/29/2019 11:55 AM [facility] Urine URINE SPECIMEN OBTAINED BY SINGLE CATHETERIZATION OF URINARY BLADDER / Unknown Collection / Unknown 05/29/2019 11:29 AM CDT 05/29/2019 11:[address] [facility] - 05/29/2019 11:55 AM [facility] Joseph Sarabia DO LAB - URINALYSIS ORD ERABLES [id number] [place] [address], [facility] [phone] * XR CHEST 1VW (05/28/2019 4:49 AM [...] is normal. Dictated by Easton Lam MD (vice president talent management). Dr. Rico Barnes M.D. have personally reviewed [...] is normal. Dictated by Easton Lam MD (vice president talent management). Dr. Rico Barnes M.D. have personally reviewed and interpretedthis examination/study. This report was electronically signed by Rico KLINE M.D. on 05/28/2019 2:43 PM . Sangeetha Berman MD DIAGNOSTIC IMAGING O RDERABLES * FL OARM SURGERY (05/27/2019 4:58 PM CDT) Narrative [facility] - 05/27/2019 4:59 PM CDT Fluoroscopy was used for this exam in the OR. Please see the Operative report. Esperanza Kim MD FLUOROSCOPY ORDERABL ES [facility] * (ABNORMAL) BLOOD GASES ART COMPLETE [facility] OR (05/27/2019 4:12 PM CDT) pH Arterial 7.49(H) 7.35 - 7.45 05/27/2019 4:22 PM T [facility] pCO2 Arterial 33(L) 35 - 45 mmHg 05/27/2019 4:22 PM [facility] pO2 Arterial 144(H) 77 - 101 mmHg 05/27/2019 4:22 PM [facility] HCO3 Arterial 24.4 22.0 - 26.0 mmol/L 05/27/2019 4:22 PM [facility] TCO2 Arterial 25.5 25.0 - 29.0 mmol/L 05/27/2019 4:22 PM [facility] Base Excess Arterial 1.4 -2.0 - 2.0 mmol/L 05/27/2019 4:22 PM [facility] Hemoglobin Arterial 10.7(L) 13.5 - 17.5 g/dL 05/27/2019 4:22 PM [facility] Oxyhemoglobin Arterial 97.4 95.0 - 100.0 % 05/27/2019 4:22 PM [facility] Carboxyhemoglobin 0.1 0.0 - 3.0 % 05/27/2019 4:22 PM [facility] Methemoglobin 0.2 0.0 - 2.0 % 05/27/2019 4:22 PM [facility] FI O2 Arterial 30.0 % 05/27/2019 4:22 PM [facility] Ionized Calcium Whole Blood 1.10 mmol/L 05/27/2019 4:22 PM [facility] Adjusted Ionized Calcium 1.15(L) 1.19 - 1.34 mmol/L 05/27/2019 4:22 PM [facility] Sodium Whole Blood 142 135 - 145 mmol/L 05/27/2019 4:22 PM CDT [facility] Potassium Whole Blood 3.8 3.5 - 5.5 mmol/L 05/27/2019 4:22 PM CDT [facility] Chloride Whole Blood 114(H) 101 - 111 mmol/L 05/27/2019 4:22 PM CDT [facility] Glucose Whole Blood 118(H) 70 - 110 mg/dL 05/27/2019 4:22 PM CDT [facility] Lactic Acid Whole Blood 1.4 0.5 - 3.4 mmol/L 05/27/2019 4:22 PM CDT [facility] Blood ARTERIAL BLOOD SPECIMEN / Unknown Venipuncture / Unknown 05/27/2019 4:12 PM CDT 05/27/2019 4:20 PM CDT Angelito Boston MD LAB - BLOOD GASES OR DERABLES Performing Organization Address [facility] Co de Phone Number [address] [phone] * ARTERIAL LINE PERFORMABLE (05/27/2019 1:38 PM CDT) Narrative Lisa Navarro APRN-CRNA - 05/27/2019 1:38 PM CDT Lisa Navarro APRN-CRNA ? 05/27/2019 ??1:39 PM Arterial Line Placement Procedure Note Patient Location: OR. Procedure: Arterial Line ([id number]). Procedure Section ?? Indications: continuous blood pressure [...] Event Date/Time: ??05/27/2019 11:47 AM Procedure: intubation ([id number]). Procedure Section: ?? Sedation: under general anesthesia. [...] DYER GENERAL ANES THESIA ORDERABLES * PT-INR [facility] (05/27/2019 3:56 AM CDT) Only the most recent of2 resultswithin the time period is included. PT 13.9 12.1 - 14.8 Seconds 05/27/2019 4:17 AM CDT [facility] INR 1.1 See Comment 05/27/2019 4:17 AM T [facility] Comment:The suggested therap eutic range for standard coumadin (warfarin) therapy is an INR of 2.0-3.0. For high-risk patients (Mechanical Mitral Valve Prosthesis, etc.), the suggested prophylactic therapeutic range is an INR of 2.5-3.5. Blood BLOOD SPECIMEN / Unknown Lab Venipuncture / Unknown 05/27/2019 3:56 AM CDT 05/27/2019 4:02 AM CDT Godfrey Tinsley MD LAB - COAGULATION OR DERABLES Performing Organization Address [facility]/ZIP Co de Phone Number [address] [phone] * PTT [facility] (05/25/2019 9:10 PM CDT) Pathologist [facility] APTT 25.7 23.0 - 38.4 Seconds 05/25/2019 9:32 PM CDT [facility] Comment:Suggested therapeuti c range for full dose I.V. unfractionated heparin therapy for venous thromboembolism is 71 to 109 seconds. Blood BLOOD SPECIMEN / Unknown Venipuncture / Unknown 05/25/2019 9:10 PM CDT 05/25/2019 9:15 PM CDT Sangeetha Berman MD LAB - COAGULATION OR DERABLES Performing Organization Address [facility] Co de Phone Number [address] [phone] * DRUG SCREEN EXPANDED TOXICOLOGY URINE PANEL (05/25/2019 6:38 PM CDT) [facility] Drug Screen Expanded See scanned report 05/25/2019 10:10 PM CDT [facility] Urine URINE / Unknown Collection / Unknown 05/25/2019 6:38 PM CDT 05/25/2019 9:58 PM CDT Sangeetha Berman MD LAB - URINE CHEMISTR Y ORDERABLES [address] [phone] * (ABNORMAL) BLOOD GASES ARTERIAL (05/25/2019 6:26 PM CDT) pH Arterial 7.39 7.35 - 7.45 05/25/2019 6:47 PM CDT [facility] pCO2 Arterial 40 35 - 45 mmHg 05/25/2019 6:47 PM CDT [facility] pO2 Arterial 128(H) 77 - 101 mmHg 05/25/2019 6:47 PM CDT [facility] HCO3 Arterial 24.1 22.0 - 26.0 mmol/L 05/25/2019 6:47 PM CDT [facility] TCO2 Arterial 25.3 25.0 - 29.0 mmol/L 05/25/2019 6:47 PM CDT [facility] Base Excess Arterial -0.7 -2.0 - 2.0 mmol/L 05/25/2019 6:47 PM CDT [facility] Hemoglobin Arterial 13.1(L) 13.5 - 17.5 g/dL 05/25/2019 6:47 PM CDT [facility] Oxyhemoglobin Arterial 96.9 95.0 - 100.0 % 05/25/2019 6:47 PM T [facility] Carboxyhemoglobin 0.7 0.0 - 3.0 % 05/25/2019 6:47 PM T [facility] Methemoglobin 0.4 0.0 - 2.0 % 05/25/2019 6:47 PM T [facility] FI O2 Arterial 36.0 % 05/25/2019 6:47 PM T [facility] Blood, arterial ARTERIAL BLOOD SPECIMEN / Unknown Arterial Puncture / Unknown 05/25/2019 6:26 PM CDT 05/25/2019 6:44 PM CDT Sangeetha Berman MD LAB - BLOOD GASES OR DERABLES [facility] [address] [place] [address] * RETYPE PATIENT (05/25/2019 1:50 PM CDT) ABO 05/25/2019 3:30 PM CDT [facility] Rh Type 05/25/2019 3:30 PM CDT [facility] Typem 05/25/2019 3:30 PM CDT [facility] Interpretation 05/25/2019 3:30 PM CDT [facility] Blood BLOOD SPECIMEN / Unknown Lab Venipuncture / Unknown 05/25/2019 1:50 PM CDT 05/25/2019 2:05 PM CDT Narrative [facility] - 05/25/2019 3:30 PM CDT Re-type confirmed per [facility] Blood Bank policies & procedures. Results documented in department. Jovany Almendarez MD LAB - BLOOD BANK ORD ERABLES [facility] [address] [place] [address], [facility] * MRI CERVICAL SPINE WO CONTRAST (05/25/2019 [...] or pelvis. Dictated by Tong Shields MD (vice president talent management). I, Dr. ESPERANZA CALZADA M.D. have personally [...] or pelvis. Dictated by Tong Shields MD (vice president talent management). IDr. ESPERANZA M.D. have personally reviewed and [...] or lumbar spine. Dictated by Justina Hu (vice president talent management). I, Dr. COLUMBA BRADSHAW have personally reviewed [...] or lumbar spine. Dictated by Justina Hu (vice president talent management). I, Dr. COLUMBA BRADSHAW have personally reviewed [...] or lumbar spine. Dictated by Justina Hu (vice president talent management). I, Dr. COLUMBA BRADSHAW have personally reviewed [...] or lumbar spine. Dictated by Justina Hu (vice president talent management). I, Dr. COLUMBA BRADSHAW have personally reviewed [...] or lumbar spine. Dictated by Justina Hu (vice president talent management). I, Dr. COLUMBA BRADSHAW have personally reviewed [...] or lumbar spine. Dictated by Justina Hu (vice president talent management). I, Dr. COLUMBA BRADSHAW have personally reviewed and interpreted this examination/study. This report was electronically signed by COLUMBA BRADSHAW on 05/25/2019 12:26PM . Joseph Moniteau DO CT ORDERABLES * CT FACIAL BONES [...] of maxilla. Dictated by Justina Hu DO (vice president talent management). I, Dr. COLUMBA BRADSHAW have personally reviewed [...] of maxilla. Dictated by Justina Hu DO (vice president talent management). Dr. COLUMBA Barnes have personally reviewed and [...] of maxilla. Dictated by Justina Hu DO (vice president talent management). Dr. COLUMBA Barnes have personally reviewed and [...] of maxilla. Dictated by Justina Hu DO (vice president talent management). I, Dr. COLUMBA BRADSHAW have personally reviewed and interpreted this examination/study. This report was electronically signed by COLUMBA BRADSHAW on 05/25/2019 11:55AM . Joseph Sarabia DO CT ORDERABLES * PREPARE (CROSSMATCH) RBC UNIT(S), 1 Units (05/25/2019 10:45 AM CDT) Only the most recent of3 resultswithin the time period is included. Unit Description N/A [facility] Blood Bank BLOOD SPECIMEN / Unknown 05/25/2019 10:45 AM CDT 05/25/2019 10:45 AM CDT Kamron Corrigan MD LAB - BLOOD BANK ORDERABLES Performing Organization Address [facility] Co de Phone Number [facility] [address] [place] [address] * TYPE + SCREEN PANEL (05/25/2019 10:31 AM CDT) Antibody Screen NEG 0 11:53 AM CDT [facility] ABO Rh A NEG 05/25/2019 11:53 AM CDT [facility] Blood Bank BLOOD SPECIMEN / Unknown Venipuncture / Unknown 05/25/2019 10:31 AM CDT 05/25/2019 10:43 AM CDT Joseph Sarabia DO LAB - BLOOD BANK ORD ERABLES Performing Organization Address [facility] de Phone Number [facility] [address] [place] [address] * LIPASE BLOOD (05/25/2019 10:31 AM CDT) Lipase 75 8 - 78 Units/L 05/25/2019 10:59 AM CDT [facility] Blood BLOOD SPECIMEN / Unknown Venipuncture / Unknown 05/25/2019 10:31 AM CDT 05/25/2019 10:37 AM CDT Joseph Sarabia DO LAB - CHEMISTRY ORDE RABLES Performing Organization Address [facility] Co de Phone Number [facility] [address] [phone] * ALCOHOL ETHYL BLOOD (05/25/2019 10:31 AM CDT) Interpretation Ethanol None Detected None Detected mg/dL 05/25/2019 10:59 AM CDT [facility] Comment:Ethanol levels less than 10 mg/dL are resulted as None detected . Blood BLOOD SPECIMEN / Unknown Venipuncture / Unknown 05/25/2019 10:31 AM CDT 05/25/2019 10:37 AM CDT Joseph Sarabia DO LAB - CHEMISTRY ALEXIS DEVRIES [place] [facility] Organization Address City/State/ZIP Co de Phone Number [address] [phone] * XR PELVIS 1 OR 2VW (05/25/2019 10:22 AM CDT) Anatomical Region Laterality Modality Pelvis Radiographic Radha ging 05/25/2019 10:2 4 AM CDT Impressions 05/25/2019 11:03 AM CDT IMPRESSION: No acute fracture identified. Report dictated by Beltran Mcdermott MD (vice president talent management) I, Dr. AL LAWTON MD have personally [...] identified. Report dictated by Beltran Mcdermott MD (vice president talent management) Dr. AL Barnes MD have personally reviewed and interpreted this examination/study. This report was electronically signed by AL LAWTON MD on05/25/2019 11:03 AM . Joseph Sarabia DO DIAGNOSTIC IMAGING O RDERABLES Care Teams Lot Worker Relationship Specialty Start Date End Date Ilan Pearson MD [address] [place] [address] PCP - General Family Medicine 05/25/19
--- OUTSIDE RECORDS SUMMARY | 2024-02-27 12:07 | XMS_ITS | Encounter Summary ---
Author Organization [facility] Health Address [address] [place] [address] Care Team Providers Care Economic Forecaster Name Role Phone Ilan Pearson MD Primary Care Provider [phone] Encounter Details Date Type Department Care Team (Late st Contact Info) Description 02/28/2020 11:00 AM BAKERY AND DELI SALES MANAGER Office Visit [facility] [place] [address] Almita Feliciano P, CONCESSION STAND ATTENDANT [address] [place] [address] [place] [phone] Oropharyngeal dysphagia (Primary Dx); S/P cervical spinal [...] this encounter Progress Notes * Almita Vo, CONCESSION STAND ATTENDANT - 02/28/2020 11:50 AM CST Follow-Up For: [...] Follow up as needed. Almita Vo MA, CCC-CONCESSION STAND ATTENDANT, BCS-S Speech Language Pathologist Department of Otolaryngology- Head and Neck Surgery RY AND DELI SALES MANAGER documented in this encounter Plan of Treatment Not on file documented as of this encounter Visit Diagnoses Diagnosis Oropharyngeal dysphagia- Primary Dysphagia, oropharyngeal phase S/P cervical spinal fusion Arthrodesis status documented in this encounter Care Teams Economic Forecaster Relationship Specialty Start Date End Date Ilan Pearson MD [address] [place] [address] PCP - General Family Medicine 05/25/19 documented as of this encounter
--- OUTSIDE RECORDS SUMMARY | 2024-02-27 12:07 | XMS_ITS | Encounter Summary ---
Author Organization [facility] Health Address [address] [place] [address] Care Team Providers Care Cane Pusher Name Role Phone Ilan Pearson MD Primary Care Provider [phone] Reason for Visit * Reason Comments Establish Care Encounter Details Date Type Department Care Team (Late st Contact Info) Description 10/18/2019 2:45 PM CDT Office Visit [facility] [address] [place] [address], [place] [phone] John Krueger MD [address] [place] [address] [place] [address] Scalp tenderness (Primary Dx) Social History Tobacco [...] Mathis MD - 10/18/2019 4:14 PM CDT [facility] PLASTIC SURGERY / HAND SURGERY / MICROSURGERY CLINIC DISCHARGE INSTRUCTIONS SHEET DIAGNOSIS: 1. Scalp tenderness Follow Up: After your ultrasound is completed, please follow up with Dr. Adrian Felix with [facility] Plastic Surgery X-Rays next visit: No [...] Ajit Tyler 59 year old male CSN: [id number] Date of service: 10/18/2019 HPI 59 year old male with history of facial trauma 5 months ago from [facility]. Patient at that time had facial lacerations [...] Headache documented in this encounter Care Teams Cane Pusher Relationship Specialty Start Date End Date Ilan Pearson MD [address] [place] [address] PCP - General Family Medicine 05/25/19 documented as of this encounter
--- OUTSIDE RECORDS SUMMARY | 2024-02-27 12:07 | XMS_ITS | Encounter Summary ---
Author Organization [facility] Health Address [address] [facility] [place] [address] Care Team Providers Care Strand Forming Machine Operator Name Role Phone Ilan Pearson MD Primary Care Provider [phone] Reason for Visit * Reason Comments Establish Care * Evaluate & Treat (Routine) - Closed Specialty Diagnoses / Procedures Referred By Contac t Referred To Contact Neurological Surgery Diagnoses Central cord syndrome, subsequent encounter (HCC) S/P cervical spinal fusion French Kim MD [address] [facility] [address] [place] [phone] Sachin Bloom MD [address] [place] [address] [address] DIV [place] [address] Referral ID Status Reason Start Date Expiration Date V isits Requested Visits Authorized [id number] Closed Specialty Services Required 11/22/2019 11/21/2020 1 1 Encounter Details Date Type Department Care Team (Late st Contact Info) Description 05/30/2020 9:30 AM CDT Office Visit [facility] Neurosurgery [address] [place] [address], [place] [phone] French Kim MD [address] [facility] [address] [place] [phone] Sachin Bloom MD [address] [place] [address] Chronic midline low back pain, unspecified whether [...] care For any questions please call Zara [phone] documented in this encounter Progress Notes * Iliana Luke APRN-CNP - 05/30/2020 9:45 AM CDT NEUROSURGERY CLINIC NOTE Chief Complaint (CC): one year follow up PSF s/p spinal cord injury HISTORY OF PRESENT ILLNESS (HPI): Ajit Tyler is a 60 year old male who presented to [facility] ED on 05/25/19 after sustaining a hyperextension [...] I have referred him to a rehabilitation therapy technician to address these issues. As he is [...] Report dictated by Tereso Torres MD (resident care associate). I, Dr. RUDOLPH CHAN have personally reviewed [...] Report dictated by Tereso Torres MD (resident care associate). I, Dr. RUDOLPH CHAN have personally reviewed [...] Report dictated by Tereso Torres MD (resident care associate). I, Dr. RUDOLPH CHAN have personally reviewed [...] Report dictated by Tereso Torres MD (resident care associate). I, Dr. RUDOLPH CHAN have personally reviewed [...] present documented in this encounter Care Teams Strand Forming Machine Operator Relationship Specialty Start Date End Date Ilan Pearson MD [address] [place] [address] PCP - General Family Medicine 05/25/19 documented as of this encounter
--- OUTSIDE RECORDS SUMMARY | 2024-02-27 12:07 | XMS_ITS | Encounter Summary ---
Author Organization [facility] Health Address [address] [facility] [place] [address] Care Team Providers Care Rn Complex Care Name Role Phone Ilan Pearson MD Primary Care Provider [phone] Encounter Details Date Type Department Care Team (Latest Contact Info) Description 06/09/2019 4:28 PM CDT - 07/08/2019 2:10 PM CDT Hospital Encounter [facility] [address] [place], [place] [id number] [place] [address] [place] [address] Rehabilitation Discharge Disposition: Home or Self Care [...] on filedocumented in this encounter Care Teams Rn Complex Care Relationship Specialty Start Date End Date Ilan Pearson MD [address] [place] [address] PCP - General Family Medicine 05/25/19 documented as of this encounter
--- OUTSIDE RECORDS SUMMARY | 2024-02-27 12:07 | XMS_ITS | Encounter Summary ---
Author Organization [facility] Health Address [address] [facility] [place] [address] Care Team Providers Care Assistant Corporate Secretary Name Role Phone Ilan Pearson MD Primary Care Provider [phone] Encounter Details Date Type Department Care Team (Late st Contact Info) Description 03/27/2020 11:00 AM HEEL COVER SPLITTER Office Visit [facility] [place] [address] Almita Feliciano P, PET CARE TECHNICIAN [address] [place] [address] [place] [phone] Oropharyngeal dysphagia (Primary Dx); S/P cervical spinal [...] this encounter Progress Notes * Almita Vo, PET CARE TECHNICIAN - 03/27/2020 3:30 PM CST Follow-Up For: Swallowing Therapy/CPT [address] Diagnosis: Dysphagia Chief Complaint: Difficult to get [...] Follow up as needed. Almita Vo MA, CCC-PET CARE TECHNICIAN, BCS-S Speech Language Pathologist Department of Otolaryngology- Head and Neck Surgery COVER SPLITTER documented in this encounter Plan of Treatment Not on file documented as of this encounter Visit Diagnoses Diagnosis Oropharyngeal dysphagia- Primary Dysphagia, oropharyngeal phase S/P cervical spinal fusion Arthrodesis status documented in this encounter Care Teams Assistant Corporate Secretary Relationship Specialty Start Date End Date Ilan Pearson MD [address] [place] [address] PCP - General Family Medicine 05/25/19 documented as of this encounter
--- OUTSIDE RECORDS SUMMARY | 2024-02-27 12:07 | XMS_ITS | Encounter Summary ---
Author Organization [facility] Health Address [address] [facility] [place] [address] Care Team Providers Care Management Analyst Name Role Phone Ilan Pearson MD Primary Care Provider Encounter Details Date Type Department Care Team (Late st Contact Info) Description 08/22/2019 Orders Only [facility] [address] [facility], [place] [address] French Kim MD [address] [facility] [address] [place] [address] Neck pain Social History Tobacco [...] alignment. Report dictated by Misael Edwards MD (residential case manager). IDr. AL MD have personally reviewed and [...] alignment. Report dictated by Misael Edwards MD (residential case manager). I, Dr. AL LAWTON MD have personally reviewed and interpreted this examination/study. This report was electronically signed by AL LAWTON MD on08/23/2019 11:34 AM . French Kim MD DIAGNOSTIC IMAGING O RDERABLES documented in this encounter Visit Diagnoses Diagnosis Neck pain- Primary Cervicalgia Neck pain Cervicalgia documented in this encounter Care Teams Management Analyst Relationship Specialty Start Date End Date Ilan Pearson MD [address] [place] [address] PCP - General Family Medicine 05/25/19 documented as of this encounter
--- OUTSIDE RECORDS SUMMARY | 2024-02-27 12:07 | XMS_ITS | Encounter Summary ---
Author Organization [facility] Health Address [address] [facility] [place] [address] Care Team Providers Care Test Worker Name Role Phone Ilan Pearson MD Primary Care Provider [phone] Encounter Details Date Type Department Care Team (Late st Contact Info) Description 11/22/2019 Orders Only [facility] [address] [facility], [place] [address] French Kim MD [address] [facility] [address] [place] [address] S/P cervical spinal fusion Social [...] status documented in this encounter Care Teams Test Worker Relationship Specialty Start Date End Date Ilan Pearson MD [address] [place] [address] PCP - General Family Medicine 05/25/19 documented as of this encounter
--- OUTSIDE RECORDS SUMMARY | 2024-02-27 12:08 | XMS_ITS | Encounter Summary ---
Author Organization [facility] Address [address] [place] [address]. [place] [address] [place] [address] Care Team Providers Care Retail Route Supervisor Name Role Phone Barak Mckeon MD Primary Care Provider [phone] Shorty Marks MD Unavailable Reason for Referral * Imaging (Routine) - Closed Specialty Diagnoses / Procedures Referred By Contac t Referred To Contact RADIOLOGY Diagnoses PAD (peripheral artery disease) ([facility]) Procedures CTA AORTO ILIOFEM RUNOFF Shorty Marks MD [address] [place] [address] Phone: tel: fax: Referral ID Status Reason Start Date Expiration Date Visits Re quested Visits Authorized [id number] Closed 06/03/2022 06/04/2023 1 1 Reason for Visit * Reason Comments Consult PAD Encounter Details Date Type Department Care Team (Late st Contact Info) Description 06/03/2022 1:00 PM CDT Office Visit [facility] [place] [address] Shorty Marks MD [address] [place] [address] Consult (PAD) Social History Tobacco [...] Progress Notes * Shorty Marks MD - 06/03/2022 1:00 PM CDT Reason [...] toe pressure of 200 mmHg and left EBAU 0.99 with toe pressure of 157 mmHg. [...] or so with CTA aorta with runoff. #[id number] /PUS Medications: Current Outpatient Medications: FLUoxetine (PROZAC) [...] Appointment [facility] [address] [place] [address] Shorty Marks MD [address] [place], [place] [address] 08/02/2024 11:15 AM CDT Office Visit [facility] [address] [place] [address] Shorty Marks MD [address] [place] [address] documented as of this encounter [...] unspecified documented in this encounter Care Teams Retail Route Supervisor Relationship Specialty Start Date End Date Barak Mckeon MD [address] [place] [address] PCP - General FAMILY PRACTICE 03/24/17 08/05/23 Shorty Marks MD [address] [place] [address] Consulting Physician INTERNAL MEDICINE 05/02/22 documented as of this encounter
--- OUTSIDE RECORDS SUMMARY | 2024-02-27 12:08 | XMS_ITS | Encounter Summary ---
Author Organization [facility] Address [address] [place] [address]. [place] [address] [place] [address] Care Team Providers Care Grounds/Maintenance Specialist Name Role Phone Ilan Pearson MD Primary Care Provider [phone] Jose Decker MD Unavailable Unavailab le Reason for Visit * Reason Onset Date Comments Consult 04/25/2022 Peripheral Vascu lar Disease Encounter Details Date Type Department Care Team (Late st Contact Info) Description 04/25/2022 Telephone [facility] [address] [place] [phone] Shorty Marks MD [address] [place], [place] [address] Consult (Peripheral Vascular Disease) Social History Tobacco [...] AM CST REFERRAL/PCP: Ilan Ma MD INS: [facility]/Cristy Ramirez Complete PPO APPT PROV/DATE/TIME: Dr Wood:[facility]-06/03/2022 at 1 pm TESTING NEEDED/SCHEDULED: no STAFF MSG SENT: no COVID+TEST/EXPOSURE IN LAST 14 DAYS: n/a RECORDS NEEDED: no MYCHART OFFERED: no LETTER SENT: yes CARE TEAM: notified Patient expresses understanding, questions answered. Dr Godfrey Bhat office will be faxing all information regarding the patient and his vascular concerns to [phone]. ATION CONSULTANT documented in this encounter Plan of Treatment Upcoming Encounters Date Type Department Care Team (Late st Contact Info) Description 08/02/2024 10:00 AM CDT Appointment [address] [place] [address] Shorty Marks MD [address] [place], [place] [phone] 08/02/2024 11:15 AM CDT Office Visit [facility] [place] [address] Shorty Marks MD [address] [place], [place] [address] documented as of this encounter Visit Diagnoses Not on filedocumented in this encounter Care Teams Grounds/Maintenance Specialist Relationship Specialty Start Date End Date Ilan Pearson MD [address] [place] [address] PCP - General FAMILY PRACTICE 03/24/17 08/05/23 Jose Decker MD [address] [place] [address] [place] [employer] Sales Consultant CARDIOVASCULAR DISEASE 03/24/17 05/01/22 documented as of this encounter
--- OUTSIDE RECORDS SUMMARY | 2024-02-27 12:08 | XMS_ITS | Encounter Summary ---
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 05/28/2019 12:15 AM CDT [facility] RBC 3.81(L) 4.30 - 5.70 10? 6 /uL 05/28/2019 12:15 AM CDT [facility] Hemoglobin 10.6(L) 13.5 - 17.5 g/dL 05/28/2019 12:15 AM CDT [facility] Hematocrit 32.3(L) 39.0 - 50.0 % 05/28/2019 12:15 AM CDT [facility] MCV 84.8 81.0 - 97.0 fL 05/28/2019 12:15 AM [facility] MCH 27.8(L) 28.0 - 34.0 pg 05/28/2019 12:15 AM [facility] MCHC 32.8 32.0 - 36.0 g/dL 05/28/2019 12:15 AM [facility] Platelet Count 167 150 - 400 10? 3 /uL 05/28/2019 12:15 AM [facility] RDW-SD 39.7 36.0 - 50.0 fL 05/28/2019 12:15 AM [facility] RDW-CV 12.9 11.2 - 14.8 % 05/28/2019 12:15 AM [facility] MPV 11.0 9.3 - 12.8 fL 05/28/2019 12:15 AM [facility] nRBC Absolute 0.00 0 10? 3 /uL 05/28/2019 12:15 AM [facility] nRBC Auto 0.0 0 /100 WBC 05/28/2019 12:15 AM [facility] Neutrophils % 86.5(H) 35.0 - 70.0 % 05/28/2019 12:15 AM [facility] Lymphocytes % 7.5(L) 19.7 - 55.1 % 05/28/2019 12:15 AM [facility] Monocytes % 5.3 3.0 - 15.0 % 05/28/2019 12:15 AM [facility] Eosinophils % 0.0 0.0 - 6.0 % 05/28/2019 12:15 AM [facility] Basophil % 0.1 0.0 - 1.5 % 05/28/2019 12:15 AM [facility] Neutrophils Absolute 6.9 1.6 - 7.0 10? 3 /uL 05/28/2019 12:15 AM [facility] Lymphocyte Absolute 0.6(L) 0.8 - 2.9 10? 3 /uL 05/28/2019 12:15 AM [facility] Monocytes Absolute 0.42 0.14 - 0.66 10? 3 /uL 05/28/2019 12:15 AM [facility] Eosinophils Absolute 0.00 0.00 - 0.45 10? 3 /uL 05/28/2019 12:15 AM [facility] Basophils Absolute 0.01 0.00 - 0.06 10? 3 /uL 05/28/2019 12:15 AM [facility] Immature Granulocytes % 0.6 0.0 - 1.0 % 05/28/2019 12:15 AM [facility] Blood BLOOD SPECIMEN / Unknown Venipuncture / Unknown 05/28/2019 12:04 AM CDT 05/28/2019 12:08 AM [facility] Sangeetha Berman MD LAB - HEMATOLOGY ORD ERABLES [facility] [address] [phone] * (ABNORMAL) BASIC METABOLIC PANEL (CALCIUM TOTAL) (05/28/2019 12:04 AM [facility]) BUN 12 7 - 26 mg/dL 05/28/2019 1:18 AM [facility] Creatinine 0.9 0.6 - 1.2 mg/dL 05/28/2019 1:18 AM [facility] Sodium 143 136 - 145 mmol/L 05/28/2019 1:18 AM [facility] Potassium 4.0 3.5 - 4.5 mmol/L 05/28/2019 1:18 AM [facility] Chloride 108(H) 98 - 107 mmol/L 05/28/2019 1:18 AM [facility] CO2 25 22 - 29 mmol/L 05/28/2019 1:18 AM [facility] Glucose 123(H) 70 - 115 mg/dL 05/28/2019 1:18 AM [facility] Calcium 8.4 8.4 - 10.2 mg/dL 05/28/2019 1:18 AM [facility] Anion Gap 14 8 - 18 05/28/2019 1:18 AM [facility] BUN/Creatinine Ratio 13 7 - 23 05/28/2019 1:18 AM [facility] Osmolality Calculated 297 270 - 300 mOsm/kg 05/28/2019 1:18 AM [facility] eGFR >60 >60 mL/min/1.7 3 m2 05/28/2019 1:18 AM CDT [facility] Blood BLOOD SPECIMEN / Unknown Venipuncture / Unknown 05/28/2019 12:04 AM CDT 05/28/2019 12:08 AM CDT Sangeetha Berman MD LAB - CHEMISTRY ALEXIS DEVRIES [facility] [address] [place] [address] * [place] OARM SURGERY (05/27/2019 4:58 PM CDT) Narrative [facility] RADIOLOGY - 05/27/2019 4:59 PM CDT Fluoroscopy was used for this exam in the OR. Please see the Operative report. Esperanza Kim MD FLUOROSCOPY ORDERABL ES Performing Organization Address [place]/[facility]/ZIP Co de Phone Number [facility] RADIOLOG[facility] * (ABNORMAL) BLOOD GASES ART COMPLETE [facility] OR (05/27/2019 4:12 PM CDT) pH Arterial 7.49(H) 7.35 - 7.45 05/27/2019 4:22 PM T [facility] pCO2 Arterial 33(L) 35 - 45 [...] 135 - 145 mmol/L 05/27/2019 4:22 PM [facility] Potassium Whole Blood 3.8 3.5 - 5.5 mmol/L 05/27/2019 4:22 PM [facility] Chloride Whole Blood 114(H) 101 - 111 mmol/L 05/27/2019 4:22 PM [facility] Glucose Whole Blood 118(H) 70 - 110 mg/dL 05/27/2019 4:22 PM [facility] Lactic Acid Whole Blood 1.4 0.5 - 3.4 mmol/L 05/27/2019 4:22 PM [facility] Blood ARTERIAL BLOOD SPECIMEN / Unknown Venipuncture / Unknown 05/27/2019 4:12 PM CDT 05/27/2019 4:20 PM CDT Angelito Boston MD LAB - BLOOD GASES OR DERABLES Performing Organization Address City/State/[facility] Co de Phone Number [address] [phone] * (ABNORMAL) CBC W/O DIFFERENTIAL (05/27/2019 2:37 PM CDT) WBC 6.3 3.5 - 10.5 10? 3 /uL 05/27/2019 2:42 PM T [facility] RBC 3.96(L) 4.30 - 5.70 10? 6 /uL 05/27/2019 2:42 PM [facility] Hemoglobin 11.3(L) 13.5 - 17.5 g/dL 05/27/2019 2:42 PM CDT [facility] Hematocrit 33.1(L) 39.0 - 50.0 % 05/27/2019 2:42 PM CDT [facility] MCV 83.6 81.0 - 97.0 fL 05/27/2019 2:42 PM CDT [facility] MCH 28.5 28.0 - 34.0 pg 05/27/2019 2:42 PM CDT [facility] MCHC 34.1 32.0 - 36.0 g/dL 05/27/2019 2:42 PM CDT [facility] Platelet Count 156 150 - 400 10? 3 /uL 05/27/2019 2:42 PM CDT [facility] RDW-SD 39.5 36.0 - 50.0 fL 05/27/2019 2:42 PM CDT [facility] RDW-CV 12.9 11.2 - 14.8 % 05/27/2019 2:42 PM CDT [facility] MPV 11.2 9.3 - 12.8 fL 05/27/2019 2:42 PM CDT [facility] nRBC Absolute 0.00 0 10? 3 /uL 05/27/2019 2:42 PM CDT [facility] nRBC Auto 0.0 0 /100 WBC 05/27/2019 2:42 PM CDT [facility] Blood BLOOD SPECIMEN / Unknown Venipuncture / Unknown 05/27/2019 2:37 PM CDT 05/27/2019 2:39 PM CDT Susana Uriarte MD LAB - HEMATOLOGY ORD ERABLES Performing Organization Address City/State/[facility] Co de Phone Number [address] [phone] * XR CHEST 1VW PORTABLE (05/27/2019 5:31 AM CDT) Anatomical Region Laterality Modality Chest Radiographic Radha ging 05/27/2019 10:2 0 AM CDT Impressions 05/27/2019 2:52 PM CDT FINDINGS/IMPRESSION: The left hemidiaphragm is elevated. There is no focal consolidation, pleural effusion, or pneumothorax. The cardiomediastinal silhouette is normal. Report dictated by Beltran Mcdermott (medical resident) Dr. AL Barnes MD have personally reviewed [...] is normal. Report dictated by Beltran Mcdermott (medical resident) Cameron, Dr. AL LAWTON MD have personally reviewed and interpreted this examination/study. This report was electronically signed by AL LAWTON MD on05/27/2019 2:52 PM . Ruby Heath MD DIAGNOSTIC IMAGIN G ORDERABLES * PT-INR [facility] (05/27/2019 3:56 AM CDT) PT 13.9 12.1 - 14.8 Seconds 05/27/2019 4:17 AM CDT [facility] LABORATORY [facility] INR 1.1 See Comment 05/27/2019 4:17 AM CDT [facility] Comment:The suggested therap eutic range for standard coumadin (warfarin) therapy is an INR of 2.0-3.0. For high-risk patients (Mechanical Mitral Valve Prosthesis, etc.), the suggested prophylactic therapeutic range is an INR of 2.5-3.5. Blood BLOOD SPECIMEN / Unknown Lab Venipuncture / Unknown 05/27/2019 3:56 AM CDT 05/27/2019 4:02 AM CDT Godfrey Tinsley MD LAB - COAGULATION OR DERABLES [address] [phone] * PHOSPHORUS BLOOD (05/27/2019 3:56 AM CDT) Phosphorus 2.8 2.3 - 4.7 mg/dL 05/27/2019 4:35 AM CDT [facility] Blood BLOOD SPECIMEN / Unknown Lab Venipuncture / Unknown 05/27/2019 3:56 AM CDT 05/27/2019 4:02 AM CDT Ruby Heath MD LAB - CHEMISTRY O RDERABLES Performing Organization Address [place]/[facility]/ZIP Co de Phone Number [address] [phone] * MAGNESIUM BLOOD (05/27/2019 3:56 AM CDT) Magnesium 1.9 1.6 - 2.6 mg/dL 05/27/2019 4:35 AM CDT [facility] Blood BLOOD SPECIMEN / Unknown Lab Venipuncture / Unknown 05/27/2019 3:56 AM CDT 05/27/2019 4:02 AM CDT Ruby Heath MD LAB - CHEMISTRY O RDERABLES Performing Organization Address City/[facility]/ZIP Co de Phone Number [address] [phone] * (ABNORMAL) CBC W AUTO DIFFERENTIAL (05/27/2019 3:56 AM CDT) WBC 9.2 3.5 - 10.5 10? 3 /uL 05/27/2019 4:16 AM CDT [facility] RBC 4.15(L) 4.30 - 5.70 10? 6 /uL 05/27/2019 4:16 AM CDT [facility] Hemoglobin 11.4(L) 13.5 - 17.5 g/dL 05/27/2019 4:16 AM CDT [facility] Hematocrit 34.8(L) 39.0 - 50.0 % 05/27/2019 4:16 AM [facility] MCV 83.9 81.0 - 97.0 fL 05/27/2019 4:16 AM [facility] MCH 27.5(L) 28.0 - 34.0 pg 05/27/2019 4:16 AM [facility] MCHC 32.8 32.0 - 36.0 g/dL 05/27/2019 4:16 AM [facility] Platelet Count 167 150 - 400 10? 3 /uL 05/27/2019 4:16 AM [facility] RDW-SD 40.2 36.0 - 50.0 fL 05/27/2019 4:16 AM [facility] RDW-CV 13.2 11.2 - 14.8 % 05/27/2019 4:16 AM [facility] MPV 11.2 9.3 - 12.8 fL 05/27/2019 4:16 AM [facility] nRBC Absolute 0.00 0 10? 3 /uL 05/27/2019 4:16 AM [facility] nRBC Auto 0.0 0 /100 WBC 05/27/2019 4:16 AM [facility] Neutrophils % 75.6(H) 35.0 - 70.0 % 05/27/2019 4:16 AM [facility] Lymphocytes % 14.8(L) 19.7 - 55.1 % 05/27/2019 4:16 AM [facility] Monocytes % 8.9 3.0 - 15.0 % 05/27/2019 4:16 AM [facility] Eosinophils % 0.2 0.0 - 6.0 % 05/27/2019 4:16 AM [facility] Basophil % 0.2 0.0 - 1.5 % 05/27/2019 4:16 AM [facility] Neutrophils Absolute 6.9 1.6 - 7.0 10? 3 /uL 05/27/2019 4:16 AM [facility] Lymphocyte Absolute 1.4 0.8 - 2.9 10? 3 /uL 05/27/2019 4:16 AM [facility] Monocytes Absolute 0.81(H) 0.14 - 0.66 10? 3 /uL 05/27/2019 4:16 AM [facility] Eosinophils Absolute 0.02 0.00 - 0.45 10? 3 /uL 05/27/2019 4:16 AM [facility] Basophils Absolute 0.02 0.00 - 0.06 10? 3 /uL 05/27/2019 4:16 AM [facility] Immature Granulocytes % 0.3 0.0 - 1.0 % 05/27/2019 4:16 AM [facility] Blood BLOOD SPECIMEN / Unknown Lab Venipuncture / Unknown 05/27/2019 3:56 AM CDT 05/27/2019 4:02 AM T Ruby Heath MD LAB - HEMATOLOGY ORDERABLES [address] [phone] * (ABNORMAL) BASIC METABOLIC PANEL (CALCIUM TOTAL) (05/27/2019 3:56 AM CDT) BUN 12 7 - 26 mg/dL 05/27/2019 4:35 AM [facility] Creatinine 0.9 0.6 - 1.2 mg/dL 05/27/2019 4:35 AM [facility] Sodium 137 136 - 145 mmol/L 05/27/2019 4:35 AM [facility] Potassium 3.8 3.5 - 4.5 mmol/L 05/27/2019 4:35 AM [facility] Chloride 104 98 - 107 mmol/L 05/27/2019 4:35 AM [facility] CO2 24 22 - 29 mmol/L 05/27/2019 4:35 AM [facility] Glucose 110 70 - 115 mg/dL 05/27/2019 4:35 AM [facility] Calcium 8.1(L) 8.4 - 10.2 mg/dL 05/27/2019 4:35 AM [facility] Anion Gap 13 8 - 18 05/27/2019 4:35 AM [facility] BUN/Creatinine Ratio 13 7 - 23 05/27/2019 4:35 AM [facility] Osmolality Calculated 284 270 - 300 mOsm/kg 05/27/2019 4:35 AM CDT [facility] eGFR >60 >60 mL/min/1.7 3 m2 05/27/2019 4:35 AM CDT [facility] Blood BLOOD SPECIMEN / Unknown Lab Venipuncture / Unknown 05/27/2019 3:56 AM CDT 05/27/2019 4:02 AM CDT Ruby Heath MD LAB - CHEMISTRY O RDERABLES Performing Organization Address City/[facility]/ZIP Co de Phone Number [address] [phone] * PTT [facility] (05/25/2019 9:10 PM CDT) APTT 25.7 23.0 - 38.4 Seconds 05/25/2019 9:32 PM CDT [facility] Comment:Suggested therapeuti c range for full dose I.V. unfractionated heparin therapy for venous thromboembolism is 71 to 109 seconds. Blood BLOOD SPECIMEN / Unknown Venipuncture / Unknown 05/25/2019 9:10 PM CDT 05/25/2019 9:15 PM CDT Sangeetha Berman MD LAB - COAGULATION OR DERABLES Performing Organization Address [place]/[facility] Co de Phone Number [address] [phone] * PT-INR [facility] (05/25/2019 9:10 PM CDT) PT 13.3 12.1 - 14.8 Seconds 05/25/2019 9:31 PM CDT [facility] INR 1.0 See Comment 05/25/2019 9:31 PM CDT [facility] Comment:The suggested therap eutic range for standard coumadin (warfarin) therapy is an INR of 2.0-3.0. For high-risk patients (Mechanical Mitral Valve Prosthesis, etc.), the suggested prophylactic therapeutic range is an INR of 2.5-3.5. Blood BLOOD SPECIMEN / Unknown Venipuncture / Unknown 05/25/2019 9:10 PM CDT 05/25/2019 9:15 PM CDT Sangeetha Berman MD LAB - COAGULATION OR DERABLES [facility] [address] [phone] * (ABNORMAL) CBC W AUTO DIFFERENTIAL (05/25/2019 9:10 PM CDT) WBC 12.0(H) 3.5 - 10.5 10? 3 /uL 05/25/2019 9:25 PM [facility] Comment:All CBC parameters h ave been checked. RBC 4.78 4.30 - 5.70 10? 6 /uL 05/25/2019 9:25 PM [facility] Hemoglobin 13.1(L) 13.5 - 17.5 g/dL 05/25/2019 9:25 PM [facility] Hematocrit 39.2 39.0 - 50.0 % 05/25/2019 9:25 PM [facility] MCV 82.0 81.0 - 97.0 fL 05/25/2019 9:25 PM [facility] MCH 27.4(L) 28.0 - 34.0 pg 05/25/2019 9:25 PM [facility] MCHC 33.4 32.0 - 36.0 g/dL 05/25/2019 9:25 PM [facility] Platelet Count 211 150 - 400 10? 3 /uL 05/25/2019 9:25 PM [facility] RDW-SD 38.9 36.0 - 50.0 fL 05/25/2019 9:25 PM [facility] RDW-CV 12.9 11.2 - 14.8 % 05/25/2019 9:25 PM [facility] MPV 10.9 9.3 - 12.8 fL 05/25/2019 9:25 PM [facility] nRBC Absolute 0.00 0 10? 3 /uL 05/25/2019 9:25 PM [facility] nRBC Auto 0.0 0 /100 WBC 05/25/2019 9:25 PM [facility] Neutrophils % 88.5(H) 35.0 - 70.0 % 05/25/2019 9:25 PM T [facility] Lymphocytes % 6.9(L) 19.7 - 55.1 % 05/25/2019 9:25 PM [facility] Monocytes % 3.9 3.0 - 15.0 % 05/25/2019 9:25 PM [facility] Eosinophils % 0.0 0.0 - 6.0 % 05/25/2019 9:25 PM T [facility] Basophil % 0.2 0.0 - 1.5 % 05/25/2019 9:25 PM [facility] Neutrophils Absolute 10.6(H) 1.6 - 7.0 10? 3 /uL 05/25/2019 9:25 PM [facility] Lymphocyte Absolute 0.8 0.8 - 2.9 10? 3 /uL 05/25/2019 9:25 PM T [facility] Monocytes Absolute 0.47 0.14 - 0.66 10? 3 /uL 05/25/2019 9:25 PM T [facility] Eosinophils Absolute 0.00 0.00 - 0.45 10? 3 /uL 05/25/2019 9:25 PM T [facility] Basophils Absolute 0.02 0.00 - 0.06 10? 3 /uL 05/25/2019 9:25 PM [facility] Immature Granulocytes % 0.5 0.0 - 1.0 % 05/25/2019 9:25 PM [facility] Blood BLOOD SPECIMEN / Unknown Venipuncture / Unknown 05/25/2019 9:10 PM CDT 05/25/2019 9:15 PM CDT Sangeetha Berman MD LAB - HEMATOLOGY ORD ERABLES [facility] [address] [phone] * PHOSPHORUS BLOOD (05/25/2019 9:10 PM CDT) Phosphorus 4.0 2.3 - 4.7 mg/dL 05/25/2019 9:32 PM [facility] Blood BLOOD SPECIMEN / Unknown Venipuncture / Unknown 05/25/2019 9:10 PM CDT 05/25/2019 9:15 PM CDT Joseph Sarabia DO LAB - CHEMISTRY ALEXIS DEVRIES [address] [phone] * MAGNESIUM BLOOD (05/25/2019 9:10 PM CDT) Magnesium 1.9 1.6 - 2.6 mg/dL 05/25/2019 9:32 PM CDT [facility] Blood BLOOD SPECIMEN / Unknown Venipuncture / Unknown 05/25/2019 9:10 PM CDT 05/25/2019 9:15 PM CDT Josepharpit Zhanglton LAB - CHEMISTRY JULIENBlanca JAYCOB Performing Organization Address [place]/[facility]/ZIP Co de Phone Number [address] [phone] * (ABNORMAL) BASIC METABOLIC PANEL (CALCIUM TOTAL) (05/25/2019 9:10 PM CDT) BUN 14 7 - 26 mg/dL 05/25/2019 9:32 PM [facility] Creatinine 0.8 0.6 - 1.2 mg/dL 05/25/2019 9:32 PM [facility] Sodium 139 136 - 145 mmol/L 05/25/2019 9:32 PM T [facility] Potassium 4.1 3.5 - 4.5 mmol/L 05/25/2019 9:32 PM [facility] Chloride 105 98 - 107 mmol/L 05/25/2019 9:32 PM T [facility] CO2 25 22 - 29 mmol/L 05/25/2019 9:32 PM [facility] Glucose 151(H) 70 - 115 mg/dL 05/25/2019 9:32 PM T [facility] Calcium 8.8 8.4 - 10.2 mg/dL 05/25/2019 9:32 PM [facility] Anion Gap 13 8 - 18 05/25/2019 9:32 PM CDT [facility] BUN/Creatinine Ratio 18 7 - 23 05/25/2019 9:32 PM CDT [facility] Osmolality Calculated 291 270 - 300 mOsm/kg 05/25/2019 9:32 PM CDT [facility] eGFR >60 >60 mL/min/1.7 3 m2 05/25/2019 9:32 PM CDT [facility] Blood BLOOD SPECIMEN / Unknown Venipuncture / Unknown 05/25/2019 9:10 PM CDT 05/25/2019 9:15 PM CDT Joseph Sarabia DO LAB - CHEMISTRY ALEXIS DEVRIES Performing Organization Address [place]/[facility]/ZIP Co de Phone Number [address] [phone] * DRUG SCREEN EXPANDED TOXICOLOGY URINE PANEL (05/25/2019 6:38 PM CDT) Drug Screen Expanded See scanned report 05/25/2019 10:10 PM CDT [facility] Urine URINE / Unknown Collection / Unknown 05/25/2019 6:38 PM CDT 05/25/2019 9:58 PM CDT Sangeetha Berman MD LAB - URINE CHEMISTR Y ORDERABLES Performing Organization Address [place]/[facility]/ZIP Co de Phone Number [address] [phone] * (ABNORMAL) URINALYSIS REFLEX TO MICROSCOPIC NO CULTURE (05/25/2019 6:38 PM CDT) Color UA Yellow Straw, Yellow, Colorless 05/25/2019 6:59 PM CDT [facility] Clarity UA Clear Clear, Slt Cloudy 05/25/2019 6:59 PM CDT [facility] Specific [place] UA 1.045(H) 1.005 - 1.030 05/25/2019 6:59 PM CDT [facility] pH UA 7.0 5.0 - 8.0 pH 05/25/2019 6:59 PM CDT [facility] Protein UA Negative Negative mg/dL 05/25/2019 6:59 PM T [facility] Glucose UA Negative Negative mg/dL 05/25/2019 6:59 PM T [facility] Ketone UA Negative Negative mg/dL 05/25/2019 6:59 PM [facility] Bilirubin UA Negative Negative mg/dL 05/25/2019 6:59 PM CDT [facility] Blood UA Negative Negative 05/25/2019 6:59 PM T [facility] Nitrite UA Negative Negative 05/25/2019 6:59 PM T [facility] Leukocyte Esterase Negative Negative 05/25/2019 6:59 PM T [facility] Urobilinogen UA Negative Negative mg/dL 05/25/2019 6:59 PM T [facility] RBC UA 3-5 None Seen, 0-2, 3-5 /HPF 05/25/2019 6:59 PM [facility] WBC UA 0-5 None Seen, 0-5 /HPF 05/25/2019 6:59 PM T [facility] Squamous Epithelial Cells UA None Seen None Seen, 0-2 /HPF 05/25/2019 6:59 PM T [facility] Mucus UA 1+ None, 1+ /LPF 05/25/2019 6:59 PM [facility] Urine URINE SPECIMEN OBTAINED BY SINGLE CATHETERIZATION OF URINARY BLADDER / Unknown Collection / Unknown 05/25/2019 6:38 PM CDT 05/25/2019 6:44 PM CDT Narrative [facility] - 05/25/2019 6:59 PM CDT Joseph Sarabia DO LAB - URINALYSIS ORD ERABLES [facility] [address] [place] [address] * (ABNORMAL) BLOOD GASES ARTERIAL (05/25/2019 6:26 PM CDT) pH Arterial 7.39 7.35 - 7.45 05/25/2019 6:47 PM T [facility] pCO2 Arterial 40 35 - 45 mmHg 05/25/2019 6:47 PM T [facility] pO2 Arterial 128(H) 77 - 101 mmHg 05/25/2019 6:47 PM CDT [facility] HCO3 Arterial 24.1 22.0 - 26.0 mmol/L 05/25/2019 6:47 PM T [facility] TCO2 Arterial 25.3 25.0 - 29.0 mmol/L 05/25/2019 6:47 PM T [facility] Base Excess Arterial -0.7 -2.0 - 2.0 mmol/L 05/25/2019 6:47 PM T [facility] Hemoglobin Arterial 13.1(L) 13.5 - 17.5 g/dL 05/25/2019 6:47 PM T [facility] Oxyhemoglobin Arterial 96.9 95.0 - 100.0 % 05/25/2019 6:47 PM T [facility] Carboxyhemoglobin 0.7 0.0 - 3.0 % 05/25/2019 6:47 PM [facility] Methemoglobin 0.4 0.0 - 2.0 % 05/25/2019 6:47 PM [facility] FI O2 Arterial 36.0 % 05/25/2019 6:47 PM T [facility] Blood, arterial ARTERIAL BLOOD SPECIMEN / Unknown Arterial Puncture / Unknown 05/25/2019 6:26 PM CDT 05/25/2019 6:44 PM CDT Sangeetha Berman MD LAB - BLOOD GASES OR DERABLES Performing Organization Address [place]/State/ZIP Co de Phone Number [facility] [address] [place] [address], [facility] [phone] * XR CHEST 1VW PORTABLE (05/25/2019 5:25 [...] CDT) ABO 05/25/2019 3:30 PM CDT [facility] Rh Type 05/25/2019 3:30 PM CDT [facility] Typem 05/25/2019 3:30 PM CDT [facility] Interpretation 05/25/2019 3:30 PM CDT [facility] Blood BLOOD SPECIMEN / Unknown Lab Venipuncture / Unknown 05/25/2019 1:50 PM CDT 05/25/2019 2:05 PM CDT Narrative [facility] - 05/25/2019 3:30 PM CDT Re-type confirmed per [facility] Blood Bank policies & procedures. Results documented in department. Jovany Almendarez MD LAB - BLOOD BANK ORD ERABLES [facility] [address] [place] [address], [facility] * MRI CERVICAL SPINE WO [...] of maxilla. Dictated by Justina Hu DO (medical resident). I, Dr. NORA BRADSHAW have personally reviewed [...] of maxilla. Dictated by Justina Hu DO (medical resident). Dr. NORA Barnes have personally reviewed and [...] of maxilla. Dictated by Justina Hu DO (medical resident). Dr. NORA Barnes have personally reviewed and [...] of maxilla. Dictated by Justina Hu DO (medical resident). Dr. NORA Barnes have personally reviewed and [...] or lumbar spine. Dictated by Justina Hu (medical resident). Dr. NORA Barnes have personally reviewed and [...] or lumbar spine. Dictated by Justina Hu (medical resident). I, Dr. NORA BRADSHAW have personally reviewed [...] or lumbar spine. Dictated by Justina Hu (medical resident). I, Dr. NORA BRADSHAW have personally reviewed [...] or lumbar spine. Dictated by Justina Hu (medical resident). I, Dr. NORA BRADSHAW have personally reviewed [...] or lumbar spine. Dictated by Justina Hu (medical resident). I, Dr. NORA BRADSHAW have personally reviewed [...] or lumbar spine. Dictated by Justina Hu (medical resident). I, Dr. NORA BRADSHAW have personally reviewed [...] or pelvis. Dictated by Tong Shields MD (medical resident). I, Dr. ESPERANZA CALZADA M.D. have personally [...] or pelvis. Dictated by Tong Shields MD (medical resident). I, Dr. ESPERANZA CALZADA M.D. have personally reviewed and interpretedthis examination/study. This report was electronically signed by ESPERANZA CALZADA M.D. on05/25/2019 11:15 AM . Joseph Sarabia DO CT ORDERABLES * PREPARE (CROSSMATCH) RBC UNIT(S), 1 Units (05/25/2019 10:45 AM CDT) Unit Description N/A [facility] Blood Bank BLOOD SPECIMEN / Unknown 05/25/2019 10:45 AM CDT 05/25/2019 10:45 AM CDT Kamron Corrigan MD LAB - BLOOD BANK ORDERABLES Performing Organization Address City/[facility]/ZIP Co de Phone Number [facility] [address] [place] [address] * PREPARE (CROSSMATCH) RBC UNIT(S), 2 Units (05/25/2019 10:45 AM CDT) Unit Description N/A [facility] Blood Bank BLOOD SPECIMEN / Unknown 05/25/2019 10:45 AM CDT 05/25/2019 10:45 AM CDT Ricardo Burden MD LAB - BLOOD BANK O RDERABLES Performing Organization Address City/[facility]/ZIP Co de Phone Number [facility] [address] [place] [address] * PREPARE (CROSSMATCH) RBC UNIT(S), 4 Units (05/25/2019 10:45 AM CDT) Unit Description LR Red Cells [facility] Unit ABO A [facility] Unit Rh NEG [facility] Product Number RL1 [facility] Unit Donor # [id number] [facility] Unit Status released [facility] BL[facility] D [facility]ANK LAB Product Code [id number] [facility] Blood Type Barcode 0600 [facility] Unit Description LR Red Cells [facility] Unit ABO A [facility] Unit Rh NEG [facility] Product Number RL1 [facility] LOOD [facility] Unit Donor # [id number] [facility] Unit Status released [facility] D [facility] Product Code [id number] [facility] OD [facility] Blood Type Barcode 0600 [facility] Unit Description LR Red Cells [facility] Unit ABO A [facility] Unit Rh NEG [facility] Product Number RL1 [facility] B LOOD [facility] LAB Unit Donor # [id number] [facility] Unit Status released [facility] BL[facility] D [facility] Product Code [id number] [facility] B[facility] OD [facility] Blood Type Barcode 0600 [facility] Unit Description LR Red Cells [facility] Unit ABO A [facility] Unit Rh NEG [facility] Product Number RL1 [facility] B LOOD [facility] LAB Unit Donor # [id number] [facility] Unit Status released [facility] BLOO D [facility]ANK LAB Product Code [id number] [facility] B[facility] OD [facility]ANK LAB Blood Type Barcode 0600 [facility] Blood Bank BLOOD SPECIMEN / Unknown 05/25/2019 10:45 AM CDT 05/25/2019 10:45 AM CDT Joseph Zhanglton LAB - BLOOD BANK ORD ERABLES Performing Organization Address City/[facility]/ZIP Co de Phone Number [facility] [address] [place] [address] * ALCOHOL ETHYL BLOOD (05/25/2019 10:31 AM CDT) [facility] Interpretation Ethanol None Detected None Detected mg/dL 05/25/2019 10:59 AM CDT [facility] Comment:Ethanol levels less than 10 mg/dL are resulted as None detected . Blood BLOOD SPECIMEN / Unknown Venipuncture / Unknown 05/25/2019 10:31 AM CDT 05/25/2019 10:37 AM CDT Joseph Sarabia DO LAB - CHEMISTRY ORDE RABLES Performing Organization Address [place]/[facility]/ZIP Co de Phone Number [address] [phone] * TYPE + SCREEN PANEL (05/25/2019 10:31 AM CDT) Pathologist [facility] Antibody Screen NEG 0 11:53 AM CDT [facility] ABO Rh A NEG 05/25/2019 11:53 AM CDT [facility] Blood Bank BLOOD SPECIMEN / Unknown Venipuncture / Unknown 05/25/2019 10:31 AM CDT 05/25/2019 10:43 AM CDT Joseph Sarabia DO LAB - BLOOD BANK ORD SMITH Performing Organization Address City/[facility]/ZIP Co de Phone Number [facility] [address] [place] [address] * LIPASE BLOOD (05/25/2019 10:31 AM CDT) Lipase 75 8 - 78 Units/L 05/25/2019 10:59 AM CDT [facility] Blood BLOOD SPECIMEN / Unknown Venipuncture / Unknown 05/25/2019 10:31 AM CDT 05/25/2019 10:37 AM CDT Joseph Sarabia LAB - CHEMISTRY ORDBlanca DEVRIES Performing Organization Address [place]/[facility] Co de Phone Number [address] [phone] * LACTIC ACID BLOOD (05/25/2019 10:31 AM CDT) Lactic Acid-Stat 1.4 0.5 - 2.0 mmol/L 05/25/2019 10:52 AM CDT [facility] Blood BLOOD SPECIMEN / Unknown Venipuncture / Unknown 05/25/2019 10:31 AM CDT 05/25/2019 10:37 AM CDT Joseph Sarabia LAB - CHEMISTRY ORDE JAYCOB Performing Organization Address City/[facility]/ZIP Co de Phone Number [address] [phone] * (ABNORMAL) CBC W AUTO DIFFERENTIAL (05/25/2019 10:31 AM CDT) WBC 8.4 3.5 - 10.5 10? 3 /uL 05/25/2019 10:39 AM CDT [facility] RBC 5.23 4.30 - 5.70 10? 6 /uL 05/25/2019 10:39 AM [facility] Hemoglobin 14.1 13.5 - 17.5 g/dL 05/25/2019 10:39 AM [facility] Hematocrit 43.1 39.0 - 50.0 % 05/25/2019 10:39 AM [facility] MCV 82.4 81.0 - 97.0 fL 05/25/2019 10:39 AM [facility] MCH 27.0(L) 28.0 - 34.0 pg 05/25/2019 10:39 AM [facility] MCHC 32.7 32.0 - 36.0 g/dL 05/25/2019 10:39 AM [facility] Platelet Count 225 150 - 400 10? 3 /uL 05/25/2019 10:39 AM [facility] RDW-SD 39.0 36.0 - 50.0 fL 05/25/2019 10:39 AM [facility] RDW-CV 13.0 11.2 - 14.8 % 05/25/2019 10:39 AM [facility] MPV 11.0 9.3 - 12.8 fL 05/25/2019 10:39 AM [facility] nRBC Absolute 0.00 0 10? 3 /uL 05/25/2019 10:39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
--- OUTSIDE RECORDS SUMMARY | 2024-02-27 12:08 | XMS_ITS | Encounter Summary ---
Author Organization [facility] Address [address] [place] [address]. [place] [address] [place] [address] Care Team Providers Care Cable Operator Name Role Phone Ilan Pearson MD Primary Care Provider [phone] Shorty Marks MD Unavailable Encounter Details Date [...] CDT Appointment [facility] [place] [address] Shorty Marks MD [address] [place] [address] 08/02/2024 11:15 AM CDT Office Visit [facility] [place] [place] [address] Shorty Marks MD [address] [place] [address] documented as of this encounter Visit Diagnoses Not on filedocumented in this encounter Care Teams Cable Operator Relationship Specialty Start Date End Date Ilan Pearson MD [address] [place] [address] PCP - General FAMILY PRACTICE 03/24/17 08/05/23 Shorty Marks MD [address] [place] [address] Consulting Physician INTERNAL MEDICINE 05/02/22 documented as of this encounter
--- OUTSIDE RECORDS SUMMARY | 2024-02-27 12:08 | XMS_ITS | Encounter Summary ---
Author Organization [facility] Address [address] [place] [address]. [place] [address] [place] [address] Care Team Providers Care Health Care Assistant Name Role Phone Ilan Pearson MD Primary Care Provider [phone] Shorty Marks MD Unavailable Godfrey Lamb DPM Unavailable [phone] Reason for Visit * Reason Onset Date Comments Results 07/02/2022 Encounter Details Date Type Department Care Team (Late st Contact Info) Description 07/02/2022 [facility] [address] [place] [address] Shorty Marks MD [address] [place] [address] Results Social History Tobacco Use [...] VM DATE/TIME:07/02/2022 3:59pm CALLER: Marlyn/ PH #: [phone] PROVIDER/NEW PT: Dr. Marks REASON FOR CALL: I called earlier and spoke with May about getting this pts CTA results and I never did get those. You can fax them to [phone] REQUEST HANDLED AND HOW: I refaxed the results * Shannan Roman LPN - 07/02/2022 11:[address] Marks had reviewed CTA Aorta with runoff and request that Dr Ilan Pearson manage. This technical publications writer s/w Marlyn w/Dr Pearson and she voiced understanding .Faxed CTA and Dr. Marks note . documented in this encounter Plan of Treatment Upcoming Encounters Date Type Department Care Team (Late st Contact Info) Description 08/02/2024 10:00 AM CDT Appointment [facility] [address] [facility] [place] [address] Shorty Marks MD [address] [place], [place] [address] 08/02/2024 11:15 AM CDT Office Visit [facility] [address] [place] [address] Shorty Marks MD [address] [place], [place] [address] documented as of this encounter Visit Diagnoses Not on filedocumented in this encounter Care Teams Health Care Assistant Relationship Specialty Start Date End Date Ilan Pearson MD [address] [place] [address] PCP - General FAMILY PRACTICE 03/24/17 08/05/23 Shorty Marks MD [address] [place], [place] [id number] Consulting Physician INTERNAL MEDICINE 05/02/22 Godfrey Lamb DPM [address] [place], [place] [address] PODIATRY 06/13/22 documented as of this encounter
--- OUTSIDE RECORDS SUMMARY | 2024-02-27 12:08 | XMS_ITS | Encounter Summary ---
Author Organization [facility] Address [address] [place] [address]. [place] [address] [place] [address] Care Team Providers Care Enforcement Safety Officer Name Role Phone Ilan Pearson MD Primary Care Provider [phone] Shorty Marks MD Unavailable Godfrey Lamb DPM Unavailable [phone] Encounter Details Date Type Department Care Team (Late st Contact Info) Description 06/26/[address] [facility] [address] [place] [address] Angelito Gross MD [address] [address] Social History Tobacco Use Types [...] CDT Appointment [facility] [address] [place] [address] Shorty Marks MD [address] [place], [place] [address] 08/02/2024 11:15 AM CDT Office Visit [facility] [address] [place] [address] Shorty Marks MD [address] [place], [place] [address] documented as of this encounter Results * (ABNORMAL) CBC W/DIFF AUTOMATED (06/26/2022 12:45 PM CDT) WBC 5.55 4.00 - 10.80 x10'3/uL 06/26/2022 12:54 PM CDT [facility] RBC 4.29(L) 4.50 - 6.10 x10'6/uL 06/26/2022 12:54 PM CDT [facility] HGB 10.7(L) 13.0 - 18.0 G/DL 06/26/2022 12:54 PM CDT [facility] HCT 34.6(L) 37.0 - 52.0 % 06/26/2022 12:54 PM CDT [facility] MCV 80.7 78.0 - 100.0 FL 06/26/2022 12:54 PM CDT [facility] MCH 24.9(L) 27.0 - 31.0 PG 06/26/2022 12:54 PM CDT [facility] MCHC 30.9(L) 33.0 - 36.0 G/DL 06/26/2022 12:54 PM CDT [facility] RDW 14.1 11.5 - 14.5 % 06/26/2022 12:54 PM CDT [facility] PLT 308 150 - 350 x10'3/uL 06/26/2022 12:54 PM CDT [facility] MPV 10.6(H) 7.4 - 10.4 FL 06/26/2022 12:54 PM CDT [facility] CBC COMMENT NORMAL REFERENCE RANGE NOT ESTABLISHED FOR THE PROPORTIONAL LEUKOCYTE DIFFERENTIAL. 06/26/2022 12:54 PM CDT [facility] NEUTROPHILS % 55.5 % 06/26/2022 12:54 PM CDT [facility] LYMPHOCYTES % 32.4 % 06/26/2022 12:54 PM CDT [facility] MONOCYTES % 6.5 % 06/26/2022 12:54 PM CDT [facility] EOSINOPHILS % 4.5 % 06/26/2022 12:54 PM CDT [facility] BASOPHILS % 0.9 % 06/26/2022 12:54 PM CDT [facility] IMMATURE GRANS % 0.2 % 06/27/19 12:54 PM CDT [facility] NRBC 0.0 % 06/26/2022 12:54 PM CDT [facility] ABS. NEUTROPHILS 3.08 1.60 - 8.30 x10'3/uL 06/26/2022 12:54 PM CDT [facility] ABS. LYMPHOCYTES 1.80 0.80 - 4.70 x10'3/uL 06/26/2022 12:54 PM CDT [facility] ABS. MONOCYTES 0.36 0.00 - 1.50 x10'3/uL 06/26/2022 12:54 PM CDT [facility] ABS. EOSINOPHILS 0.25 0.00 - 0.40 x10'3/uL 06/26/2022 12:54 PM CDT [facility] ABS. BASOPHILS 0.05 0.00 - 0.20 x10'3/uL 06/26/2022 12:54 PM CDT [facility] ABS. IMMATURE GRANULOCYTES 0.01 0.00 - 0.03 x10'3/uL 06/26/2022 12:54 PM CDT [facility] ABS. NUCLEATED RBC'S 0.00 0.00 x10'3/uL 06/26/2022 12:54 PM CDT [facility] 06/26/2022 12:4 5 PM CDT Angelito Gross MD LABORATORY Final Result [facility] [address] [place] [address], * (ABNORMAL) BASIC METABOLIC PANEL (06/26/2022 12:45 PM CDT) SODIUM S/P/B 142 136 - 145 MMOL/L 06/26/2022 1:05 PM CDT [facility] POTASSIUM S/P/B 4.2 3.5 - 5.1 MMOL/L 06/26/2022 1:05 PM CDT [facility] CHLORIDE S/P/B 107 98 - 107 MMOL/L 06/26/2022 1:05 PM CDT [facility] CO2 29.3 21.0 - 32.0 MMOL/L 06/26/2022 1:05 PM CDT [facility] GLUCOSE 87 70 - 99 MG/DL 06/26/2022 1:05 PM T [facility] Comment: FASTING GLUCOSE 100 TO 125 MG/DL IS CONSISTENT WITH IMPAIRED FASTING GLUCOSE. FASTING GLUCOSE >125 MG/DL IS CONSISTENT WITH DIABETES. RANDOM GLUCOSE >200 MG/DL WITH HYPERGLYCEMIC SYMPTOMS IS CONSISTENT WITH DIABETES. PER ADA GUIDELINES BUN 16 6 - 24 MG/DL 06/26/2022 1:05 PM CDT [facility] CREATININE S/P/B 1.03 0.70 - 1.30 MG/DL 06/26/2022 1:05 PM CDT [facility] CALCIUM S/P/B 8.9 8.4 - 10.5 MG/DL 06/26/2022 1:05 PM CDT [facility] ANION GAP 5.7 5.0 - 15.0 MMOL/L 06/26/2022 1:05 PM CDT [facility] OSMOLALITY (CALC) 295 MOSM/KG 023 1:05 PM CDT [facility] Comment:REFERENCE RANGE NOT ESTABLISHED GFR ESTIMATE 83(L) >89 ML/MIN/1. 73 M2 06/26/2022 1:05 PM CDT [facility] GFR NOTES GFR REFERENCE S: 06/26/2022 1:05 PM CDT [facility] Comment: THE ESTIMATED GFR IS [...] CDT Angelito Gross MD LABORATORY Final Result [facility] [address] [place] [address], documented in this encounter Visit Diagnoses Diagnosis Renal calculus, right- Primary Calculus of kidney Ureteral stenosis, right Stricture or kinking of ureter documented in this encounter Care Teams Enforcement Safety Officer Relationship Specialty Start Date End Date Ilan Pearson MD [address] [place] [address] PCP - General FAMILY PRACTICE 03/24/17 08/05/23 Shorty Marks MD [address] [place] [address] Consulting Physician INTERNAL MEDICINE 05/02/22 Godfrey Lamb DPM [address] [place], [place] [address] PODIATRY 06/13/22 documented as of this encounter
--- OUTSIDE RECORDS SUMMARY | 2024-02-27 12:08 | XMS_ITS | Encounter Summary ---
Author Organization [facility] Address [address] [place] [address]. [place] [address] [place] [address] Care Team Providers Care Balance Screwhead Polisher Name Role Phone Ilan Pearson MD Primary Care Provider [phone] Shorty Marks MD Unavailable Godfrey Lamb DPM Unavailable [phone] Reason for Visit * Reason Onset Date Comments Reschedule 06/19/2022 Encounter Details Date Type Department Care Team (Late st Contact Info) Description 06/19/2022 [facility]phone [facility] [address] [place] [address] Shorty Marks MD [address] [place] [address] Reschedule Social History Tobacco Use [...] PM CDT DATE/TIME:06/19/2022 1:10pm CALLER: pt #: [phone] PROVIDER/NEW PT: Dr. Marks REASON FOR CALL: I need to reschedule my apt on 07/01 REQUEST HANDLED AND HOW: I called and spoke with pt he said that on 07/01 he is having a procedure done they are going in and cleaning out his kidneys and is not carie to come on 07/01. I asked him if he wanted to come to [place] to get in sooner or stick with [place]. He said he prefers [place] I told him that Dr. Marks can see him on 08/05 and he said that was fine and his apt is made for 08/05 at 1:15 pm in [place] and pt understood. documented in this encounter Plan of Treatment Upcoming Encounters Date Type Department Care Team (Late st Contact Info) Description 08/02/2024 10:00 AM CDT Appointment [facility] [address] [place] [address] Shorty Marks MD [address] [place] [id number] 08/02/2024 11:15 AM CDT Office Visit [facility] [address] [place] [address] Shorty Marks MD [address] [place], [place] [id number] documented as of this encounter Visit Diagnoses Not on filedocumented in this encounter Care Teams Balance Screwhead Polisher Relationship Specialty Start Date End Date Ilan Pearson MD [address] [place] [address] PCP - General FAMILY PRACTICE 03/24/17 08/05/23 Shorty Marks MD [address] [place] [address] Consulting Physician INTERNAL MEDICINE 05/02/22 Godfrey Lamb DPM [address] [place], [place] [address] PODIATRY 06/13/22 documented as of this encounter
--- OUTSIDE RECORDS SUMMARY | 2024-02-27 12:08 | XMS_ITS | Encounter Summary ---
Author Organization [facility] Address [address] [place] [address]. [place] [address] [place] [address] Care Team Providers Care Life Skills Instructor Name Role Phone Ilan Pearson MD Primary Care Provider [phone] Shorty Marks MD Unavailable Godfrey Lamb DPM Unavailable [phone] Encounter Details Date Type Department Care [...] Info) Description 08/02/2024 10:00 AM CDT Appointment [facility] [address] [place] [address] Shorty Marks MD [address] [place] [address] 08/02/2024 11:15 AM CDT Office Visit [facility] [address] [place] [address] Shorty Marks MD [address] [place], [place] [address] documented as of this encounter Visit Diagnoses Not on filedocumented in this encounter Care Teams Life Skills Instructor Relationship Specialty Start Date End Date Ilan Pearson MD [address] [place] [address] PCP - General FAMILY PRACTICE 03/24/17 08/05/23 Shorty Marks MD [address] [place], [place] [address] Consulting Physician INTERNAL MEDICINE 05/02/22 Godfrey Lamb DPM [address] [place], [place] [address] PODIATRY 06/13/22 documented as of this encounter
--- OUTSIDE RECORDS SUMMARY | 2024-02-27 12:08 | XMS_ITS | Encounter Summary ---
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 12:31 AM [facility] Immature Granulocytes % 1.1(H) 0.0 - 1.0 % 05/29/2019 12:31 AM [facility] Blood BLOOD SPECIMEN / Unknown Lab Venipuncture / Unknown 05/29/2019 12:14 AM CDT 05/29/2019 12:27 AM T Sangeetha Berman MD LAB - HEMATOLOGY ORD ERABLES [place] [id number] [address] [phone] * (ABNORMAL) BASIC METABOLIC PANEL (CALCIUM TOTAL) (05/29/2019 12:14 AM CDT) BUN 14 7 - 26 mg/dL 05/29/2019 12:46 AM [facility] Creatinine 0.8 0.6 - 1.2 mg/dL 05/29/2019 12:46 AM [facility] Sodium 137 136 - 145 mmol/L 05/29/2019 12:46 AM [facility] Potassium 3.9 3.5 - 4.5 mmol/L 05/29/2019 12:46 AM [facility] Chloride 102 98 - 107 mmol/L 05/29/2019 12:46 AM [facility] CO2 24 22 - 29 mmol/L 05/29/2019 12:46 AM [facility] Glucose 108 70 - 115 mg/dL 05/29/2019 12:46 AM [facility] Calcium 8.0(L) 8.4 - 10.2 mg/dL 05/29/2019 12:46 AM [facility] Anion Gap 15 8 - 18 05/29/2019 12:46 AM [facility] BUN/Creatinine Ratio 18 7 - 23 05/29/2019 12:46 AM [facility] Osmolality Calculated 285 270 - 300 mOsm/kg 05/29/2019 12:46 AM [facility] eGFR >60 >60 mL/min/1.7 3 m2 05/29/2019 12:46 AM [facility] Blood BLOOD SPECIMEN / Unknown Lab Venipuncture / Unknown 05/29/2019 12:14 AM CDT 05/29/2019 12:27 AM CDT Sangeetha Berman MD LAB - CHEMISTRY ALEXIS DEVRIES [facility] Organization Address City/State/[place] [address], [facility] [phone] * XR CHEST 1VW (05/28/2019 4:49 AM [...] is normal. Dictated by Easton Lam MD (regional vice president life sales). Dr. Rico Barnes M.D. have personally reviewed [...] is normal. Dictated by Easton Lam MD (regional vice president life sales). Dr. Rico Barnes M.D. have personally reviewed and interpretedthis examination/study. This report was electronically signed by Rico KLINE M.D. on 05/28/2019 2:43 PM . Sangeetha Berman MD DIAGNOSTIC IMAGING O RDERABLES * PHOSPHORUS BLOOD (05/28/2019 12:04 AM CDT) Phosphorus 3.4 2.3 - 4.7 mg/dL 05/28/2019 1:18 AM CDT [facility] Blood BLOOD SPECIMEN / Unknown Venipuncture / Unknown 05/28/2019 12:04 AM CDT 05/28/2019 12:08 AM CDT Sangeetha Berman MD LAB - CHEMISTRY ALEXIS DEVRIES [address] [phone] * MAGNESIUM BLOOD (05/28/2019 12:04 AM CDT) Magnesium 1.9 1.6 - 2.6 mg/dL 05/28/2019 1:18 AM [facility] Blood BLOOD SPECIMEN / Unknown Venipuncture / Unknown 05/28/2019 12:04 AM CDT 05/28/2019 12:08 AM CDT Sangeetha Berman MD LAB - CHEMISTRY ALEXIS DEVRIES Performing Organization Address City/[facility]/ZIP Co de Phone Number [address] [phone] * (ABNORMAL) CBC W AUTO DIFFERENTIAL (05/28/2019 12:04 AM CDT) WBC 8.0 3.5 - 10.5 10? 3 /uL 05/28/2019 12:15 AM [facility] RBC 3.81(L) 4.30 - 5.70 10? 6 /uL 05/28/2019 12:15 AM [facility] Hemoglobin 10.6(L) 13.5 - 17.5 g/dL 05/28/2019 12:15 AM [facility] Hematocrit 32.3(L) 39.0 - 50.0 % 05/28/2019 12:15 AM [facility] MCV 84.8 81.0 - 97.0 fL 05/28/2019 12:15 AM [facility] MCH 27.8(L) 28.0 - 34.0 pg 05/28/2019 12:15 AM [facility] MCHC 32.8 32.0 - 36.0 g/dL 05/28/2019 12:15 AM [facility] Platelet Count 167 150 - 400 10? 3 /uL 05/28/2019 12:15 AM [facility] RDW-SD 39.7 36.0 - 50.0 fL 05/28/2019 12:15 AM [facility] RDW-CV 12.9 11.2 - 14.8 % 05/28/2019 12:15 AM [facility] MPV 11.0 9.3 - 12.8 fL 05/28/2019 12:15 AM [facility] nRBC Absolute 0.00 0 10? 3 /uL 05/28/2019 12:15 AM [facility] nRBC Auto 0.0 0 /100 WBC 05/28/2019 12:15 AM [facility] Neutrophils % 86.5(H) 35.0 - 70.0 % 05/28/2019 12:15 AM [facility] Lymphocytes % 7.5(L) 19.7 - 55.1 % 05/28/2019 12:15 AM [facility] Monocytes % 5.3 3.0 - 15.0 % 05/28/2019 12:15 AM [facility] Eosinophils % 0.0 0.0 - 6.0 % 05/28/2019 12:15 AM [facility] Basophil % 0.1 0.0 - 1.5 % 05/28/2019 12:15 AM [facility] Neutrophils Absolute 6.9 1.6 - 7.0 10? 3 /uL 05/28/2019 12:15 AM [facility] Lymphocyte Absolute 0.6(L) 0.8 - 2.9 10? 3 /uL 05/28/2019 12:15 AM [facility] Monocytes Absolute 0.42 0.14 - 0.66 10? 3 /uL 05/28/2019 12:15 AM [facility] Eosinophils Absolute 0.00 0.00 - 0.45 10? 3 /uL 05/28/2019 12:15 AM [facility] Basophils Absolute 0.01 0.00 - 0.06 10? 3 /uL 05/28/2019 12:15 AM [facility] Immature Granulocytes % 0.6 0.0 - 1.0 % 05/28/2019 12:15 AM [facility] Blood BLOOD SPECIMEN / Unknown Venipuncture / Unknown 05/28/2019 12:04 AM CDT 05/28/2019 12:08 AM CDT Sangeetha Berman MD LAB - HEMATOLOGY JULIEN MTZ [address] [phone] * (ABNORMAL) BASIC METABOLIC PANEL (CALCIUM TOTAL) (05/28/2019 12:04 AM CDT) BUN 12 7 - 26 mg/dL 05/28/2019 1:18 AM [facility] Creatinine 0.9 0.6 - 1.2 mg/dL 05/28/2019 1:18 AM [facility] Sodium 143 136 - 145 mmol/L 05/28/2019 1:18 AM [facility] Potassium 4.0 3.5 - 4.5 mmol/L 05/28/2019 1:18 AM [facility] Chloride 108(H) 98 - 107 mmol/L 05/28/2019 1:18 AM [facility] CO2 25 22 - 29 mmol/L 05/28/2019 1:18 AM [facility] Glucose 123(H) 70 - 115 mg/dL 05/28/2019 1:18 AM [facility] Calcium 8.4 8.4 - 10.2 mg/dL 05/28/2019 1:18 AM [facility] Anion Gap 14 8 - 18 05/28/2019 1:18 AM [facility] BUN/Creatinine Ratio 13 7 - 23 05/28/2019 1:18 AM [facility] Osmolality Calculated 297 270 - 300 mOsm/kg 05/28/2019 1:18 AM [facility] eGFR >60 >60 mL/min/1.7 3 m2 05/28/2019 1:18 AM [facility] Blood BLOOD SPECIMEN / Unknown Venipuncture / Unknown 05/28/2019 12:04 AM CDT 05/28/2019 12:08 AM CDT Sangeetha Berman MD LAB - CHEMISTRY ALEXIS DEVRIES [address] [phone] * FL OARM SURGERY (05/27/2019 4:58 PM CDT) Narrative [facility] RADIOLOGY - 05/27/2019 4:59 PM CDT Fluoroscopy was used for this exam in the OR. Please see the Operative report. Esperanza Kim MD FLUOROSCOPY ORDERABL ES [facility] RADIOLOGY * (ABNORMAL) BLOOD GASES ART COMPLETE [facility] OR (05/27/2019 4:12 PM CDT) pH Arterial 7.49(H) 7.35 - 7.45 05/27/2019 4:22 PM [facility] pCO2 Arterial 33(L) 35 - 45 mmHg 05/27/2019 4:22 PM [facility] pO2 Arterial 144(H) 77 - 101 mmHg 05/27/2019 4:22 PM [facility] HCO3 Arterial 24.4 22.0 - 26.0 mmol/L 05/27/2019 4:22 PM [facility] TCO2 Arterial 25.5 25.0 - 29.0 mmol/L 05/27/2019 4:22 PM [facility] Base Excess Arterial 1.4 -2.0 - 2.0 mmol/L 05/27/2019 4:22 PM [facility] Hemoglobin Arterial 10.7(L) 13.5 - 17.5 g/dL 05/27/2019 4:22 PM [facility] Oxyhemoglobin Arterial 97.4 95.0 - 100.0 % 05/27/2019 4:22 PM [facility] Carboxyhemoglobin 0.1 0.0 - 3.0 % 05/27/2019 4:22 PM [facility] Methemoglobin 0.2 0.0 - 2.0 % 05/27/2019 4:22 PM [facility] FI O2 Arterial 30.0 % 05/27/2019 4:22 PM [facility] Ionized Calcium Whole Blood 1.10 mmol/L 05/27/2019 4:22 PM [facility] Adjusted Ionized Calcium 1.15(L) 1.19 - 1.34 mmol/L 05/27/2019 4:22 PM CDT [facility] Sodium Whole Blood 142 135 - 145 mmol/L 05/27/2019 4:22 PM T [facility] Potassium Whole Blood 3.8 3.5 - 5.5 mmol/L 05/27/2019 4:22 PM [facility] Chloride Whole Blood 114(H) 101 - 111 mmol/L 05/27/2019 4:22 PM [facility] Glucose Whole Blood 118(H) 70 - 110 mg/dL 05/27/2019 4:22 PM [facility] Lactic Acid Whole Blood 1.4 0.5 - 3.4 mmol/L 05/27/2019 4:22 PM [facility] Blood ARTERIAL BLOOD SPECIMEN / Unknown Venipuncture / Unknown 05/27/2019 4:12 PM CDT 05/27/2019 4:20 PM CDT Angelito Boston MD LAB - BLOOD GASES OR DERABLES Performing Organization Address City/State/[facility] Co de Phone Number [address] [phone] * (ABNORMAL) CBC W/O DIFFERENTIAL (05/27/2019 2:37 PM CDT) WBC 6.3 3.5 - 10.5 10? 3 /uL 05/27/2019 2:42 PM [facility] RBC 3.96(L) 4.30 - 5.70 10? 6 /uL 05/27/2019 2:42 PM [facility] Hemoglobin 11.3(L) 13.5 - 17.5 g/dL 05/27/2019 2:42 PM [facility] Hematocrit 33.1(L) 39.0 - 50.0 % 05/27/2019 2:42 PM [facility] MCV 83.6 81.0 - 97.0 fL 05/27/2019 2:42 PM [facility] MCH 28.5 28.0 - 34.0 pg 05/27/2019 2:42 PM T [facility] MCHC 34.1 32.0 - 36.0 g/dL 05/27/2019 2:42 PM CDT [facility] Platelet Count 156 150 - 400 10? 3 /uL 05/27/2019 2:42 PM CDT [facility] RDW-SD 39.5 36.0 - 50.0 fL 05/27/2019 2:42 PM CDT [facility] RDW-CV 12.9 11.2 - 14.8 % 05/27/2019 2:42 PM CDT [facility] MPV 11.2 9.3 - 12.8 fL 05/27/2019 2:42 PM CDT [facility] nRBC Absolute 0.00 0 10? 3 /uL 05/27/2019 2:42 PM CDT [facility] nRBC Auto 0.0 0 /100 WBC 05/27/2019 2:42 PM CDT [facility] Blood BLOOD SPECIMEN / Unknown Venipuncture / Unknown 05/27/2019 2:37 PM CDT 05/27/2019 2:39 PM CDT Susana Uriarte MD LAB - HEMATOLOGY ORD ERABLES [address] [phone] * XR CHEST 1VW PORTABLE (05/27/2019 5:31 AM CDT) Anatomical Region Laterality Modality Chest Radiographic Radha ging 05/27/2019 10:2 0 AM CDT Impressions 05/27/2019 2:52 PM CDT FINDINGS/IMPRESSION: The left hemidiaphragm is elevated. There is no focal consolidation, pleural effusion, or pneumothorax. The cardiomediastinal silhouette is normal. Report dictated by Beltran Mcdermott (regional vice president life sales) Dr. AL Barnes MD have personally reviewed [...] is normal. Report dictated by Beltran Mcdermott (regional vice president life sales) IDr. AL MD have personally reviewed and interpreted this examination/study. This report was electronically signed by AL LAWTON MD on05/27/2019 2:52 PM . Ruby Heath MD DIAGNOSTIC IMAGIN G ORDERABLES * PT-INR [facility] (05/27/2019 3:56 AM CDT) PT 13.9 12.1 - 14.8 Seconds 05/27/2019 4:17 AM CDT [facility] INR 1.1 See Comment 05/27/2019 4:17 AM CDT [facility] Comment:The suggested therap eutic range for standard coumadin (warfarin) therapy is an INR of 2.0-3.0. For high-risk patients (Mechanical Mitral Valve Prosthesis, etc.), the suggested prophylactic therapeutic range is an INR of 2.5-3.5. Blood BLOOD SPECIMEN / Unknown Lab Venipuncture / Unknown 05/27/2019 3:56 AM CDT 05/27/2019 4:02 AM CDT Godfrey Tinsley MD LAB - COAGULATION OR DERABLES [address] [phone] * PHOSPHORUS BLOOD (05/27/2019 3:56 AM CDT) Phosphorus 2.8 2.3 - 4.7 mg/dL 05/27/2019 4:35 AM CDT [facility] Blood BLOOD SPECIMEN / Unknown Lab Venipuncture / Unknown 05/27/2019 3:56 AM CDT 05/27/2019 4:02 AM CDT Ruby Heath MD LAB - CHEMISTRY O RDERABLES [address] [phone] * MAGNESIUM BLOOD (05/27/2019 3:56 AM CDT) Magnesium 1.9 1.6 - 2.6 mg/dL 05/27/2019 4:35 AM T [facility] Blood BLOOD SPECIMEN / Unknown Lab Venipuncture / Unknown 05/27/2019 3:56 AM CDT 05/27/2019 4:02 AM CDT Ruby Heath MD LAB - CHEMISTRY O DAVIDERAJACOB Performing Organization Address [facility]/ZIP Co de Phone Number [address] [phone] * (ABNORMAL) CBC W AUTO DIFFERENTIAL (05/27/2019 3:56 AM CDT) WBC 9.2 3.5 - 10.5 10? 3 /uL 05/27/2019 4:16 AM [facility] RBC 4.15(L) 4.30 - 5.70 10? 6 /uL 05/27/2019 4:16 AM [facility] Hemoglobin 11.4(L) 13.5 - 17.5 g/dL 05/27/2019 4:16 AM [facility] Hematocrit 34.8(L) 39.0 - 50.0 % 05/27/2019 4:16 AM [facility] MCV 83.9 81.0 - 97.0 fL 05/27/2019 4:16 AM [facility] MCH 27.5(L) 28.0 - 34.0 pg 05/27/2019 4:16 AM [facility] MCHC 32.8 32.0 - 36.0 g/dL 05/27/2019 4:16 AM [facility] Platelet Count 167 150 - 400 10? 3 /uL 05/27/2019 4:16 AM [facility] RDW-SD 40.2 36.0 - 50.0 fL 05/27/2019 4:16 AM [facility] RDW-CV 13.2 11.2 - 14.8 % 05/27/2019 4:16 AM [facility] MPV 11.2 9.3 - 12.8 fL 05/27/2019 4:16 AM [facility] nRBC Absolute 0.00 0 10? 3 /uL 05/27/2019 4:16 AM [facility] nRBC Auto 0.0 0 /100 WBC 05/27/2019 4:16 AM [facility] Neutrophils % 75.6(H) 35.0 - 70.0 % 05/27/2019 4:16 AM [facility] Lymphocytes % 14.8(L) 19.7 - 55.1 % 05/27/2019 4:16 AM [facility] Monocytes % 8.9 3.0 - 15.0 % 05/27/2019 4:16 AM [facility] Eosinophils % 0.2 0.0 - 6.0 % 05/27/2019 4:16 AM [facility] Basophil % 0.2 0.0 - 1.5 % 05/27/2019 4:16 AM [facility] Neutrophils Absolute 6.9 1.6 - 7.0 10? 3 /uL 05/27/2019 4:16 AM [facility] Lymphocyte Absolute 1.4 0.8 - 2.9 10? 3 /uL 05/27/2019 4:16 AM [facility] Monocytes Absolute 0.81(H) 0.14 - 0.66 10? 3 /uL 05/27/2019 4:16 AM [facility] Eosinophils Absolute 0.02 0.00 - 0.45 10? 3 /uL 05/27/2019 4:16 AM [facility] Basophils Absolute 0.02 0.00 - 0.06 10? 3 /uL 05/27/2019 4:16 AM [facility] Immature Granulocytes % 0.3 0.0 - 1.0 % 05/27/2019 4:16 AM [facility] Blood BLOOD SPECIMEN / Unknown Lab Venipuncture / Unknown 05/27/2019 3:56 AM CDT 05/27/2019 4:02 AM CDT Ruby Heath MD LAB - HEMATOLOGY ORDERABLES [facility] [address] [phone] * (ABNORMAL) BASIC METABOLIC PANEL (CALCIUM TOTAL) (05/27/2019 3:56 AM CDT) BUN 12 7 - 26 mg/dL 05/27/2019 4:35 AM [facility] Creatinine 0.9 0.6 - 1.2 mg/dL 05/27/2019 4:35 AM [facility] Sodium 137 136 - 145 mmol/L 05/27/2019 4:35 AM [facility] Potassium 3.8 3.5 - 4.5 mmol/L 05/27/2019 4:35 AM [facility] Chloride 104 98 - 107 mmol/L 05/27/2019 4:35 AM [facility] CO2 24 22 - 29 mmol/L 05/27/2019 4:35 AM [facility] Glucose 110 70 - 115 mg/dL 05/27/2019 4:35 AM [facility] Calcium 8.1(L) 8.4 - 10.2 mg/dL 05/27/2019 4:35 AM [facility] Anion Gap 13 8 - 18 05/27/2019 4:35 AM [facility] BUN/Creatinine Ratio 13 7 - 23 05/27/2019 4:35 AM [facility] Osmolality Calculated 284 270 - 300 mOsm/kg 05/27/2019 4:35 AM [facility] eGFR >60 >60 mL/min/1.7 3 m2 05/27/2019 4:35 AM [facility] Blood BLOOD SPECIMEN / Unknown Lab Venipuncture / Unknown 05/27/2019 3:56 AM CDT 05/27/2019 4:02 AM CDT Ruby Heath MD LAB - CHEMISTRY O RDERABLES [address] [phone] * PTT [facility] (05/25/2019 9:10 PM CDT) APTT 25.7 23.0 - 38.4 Seconds 05/25/2019 9:32 PM CDT [facility] Comment:Suggested therapeuti c range for full dose I.V. unfractionated heparin therapy for venous thromboembolism is 71 to 109 seconds. Blood BLOOD SPECIMEN / Unknown Venipuncture / Unknown 05/25/2019 9:10 PM CDT 05/25/2019 9:15 PM CDT Sangeetha Berman MD LAB - COAGULATION OR DERABLES Performing Organization Address [facility] Co de Phone Number [address] [phone] * PT-INR [facility] (05/25/2019 9:10 PM CDT) Pathologist [facility] [place] PT 13.3 12.1 - 14.8 Seconds 05/25/2019 9:31 PM CDT [facility] INR 1.0 See Comment 05/25/2019 9:31 PM CDT [facility] Comment:The suggested therap eutic range for standard coumadin (warfarin) therapy is an INR of 2.0-3.0. For high-risk patients (Mechanical Mitral Valve Prosthesis, etc.), the suggested prophylactic therapeutic range is an INR of 2.5-3.5. Blood BLOOD SPECIMEN / Unknown Venipuncture / Unknown 05/25/2019 9:10 PM CDT 05/25/2019 9:15 PM CDT Sangeetha Berman MD LAB - COAGULATION OR DERABLES Performing Organization Address [facility]/ZIP Co de Phone Number [address] [phone] * (ABNORMAL) CBC W AUTO DIFFERENTIAL (05/25/2019 9:10 PM CDT) WBC 12.0(H) 3.5 - 10.5 10? 3 /uL 05/25/2019 9:25 PM [facility] Comment:All CBC parameters h ave been checked. RBC 4.78 4.30 - 5.70 10? 6 /uL 05/25/2019 9:25 PM [facility] Hemoglobin 13.1(L) 13.5 - 17.5 g/dL 05/25/2019 9:25 PM [facility] Hematocrit 39.2 39.0 - 50.0 % 05/25/2019 9:25 PM [facility] MCV 82.0 81.0 - 97.0 fL 05/25/2019 9:25 PM [facility] MCH 27.4(L) 28.0 - 34.0 pg 05/25/2019 9:25 PM [facility] MCHC 33.4 32.0 - 36.0 g/dL 05/25/2019 9:25 PM [facility] Platelet Count 211 150 - 400 10? 3 /uL 05/25/2019 9:25 PM [facility] RDW-SD 38.9 36.0 - 50.0 fL 05/25/2019 9:25 PM [facility] RDW-CV 12.9 11.2 - 14.8 % 05/25/2019 9:25 PM [facility] MPV 10.9 9.3 - 12.8 fL 05/25/2019 9:25 PM [facility] nRBC Absolute 0.00 0 10? 3 /uL 05/25/2019 9:25 PM [facility] nRBC Auto 0.0 0 /100 WBC 05/25/2019 9:25 PM [facility] Neutrophils % 88.5(H) 35.0 - 70.0 % 05/25/2019 9:25 PM [facility] Lymphocytes % 6.9(L) 19.7 - 55.1 % 05/25/2019 9:25 PM [facility] Monocytes % 3.9 3.0 - 15.0 % 05/25/2019 9:25 PM [facility] Eosinophils % 0.0 0.0 - 6.0 % 05/25/2019 9:25 PM [facility] Basophil % 0.2 0.0 - 1.5 % 05/25/2019 9:25 PM CDT [facility] Neutrophils Absolute 10.6(H) 1.6 - 7.0 10? 3 /uL 05/25/2019 9:25 PM CDT [facility] Lymphocyte Absolute 0.8 0.8 - 2.9 10? 3 /uL 05/25/2019 9:25 PM CDT [facility] Monocytes Absolute 0.47 0.14 - 0.66 10? 3 /uL 05/25/2019 9:25 PM CDT [facility] Eosinophils Absolute 0.00 0.00 - 0.45 10? 3 /uL 05/25/2019 9:25 PM CDT [facility] Basophils Absolute 0.02 0.00 - 0.06 10? 3 /uL 05/25/2019 9:25 PM CDT [facility] Immature Granulocytes % 0.5 0.0 - 1.0 % 05/25/2019 9:25 PM CDT [facility] Blood BLOOD SPECIMEN / Unknown Venipuncture / Unknown 05/25/2019 9:10 PM CDT 05/25/2019 9:15 PM CDT Sangeetha Berman MD LAB - HEMATOLOGY [facility] [address] [phone] * PHOSPHORUS BLOOD (05/25/2019 9:10 PM CDT) Phosphorus 4.0 2.3 - 4.7 mg/dL 05/25/2019 9:32 PM CDT [facility] Blood BLOOD SPECIMEN / Unknown Venipuncture / Unknown 05/25/2019 9:10 PM CDT 05/25/2019 9:15 PM CDT Joseph Sarabia DO LAB - CHEMISTRY [facility] [address] [phone] * MAGNESIUM BLOOD (05/25/2019 9:10 PM CDT) Magnesium 1.9 1.6 - 2.6 mg/dL 05/25/2019 9:32 PM [facility] Blood BLOOD SPECIMEN / Unknown Venipuncture / Unknown 05/25/2019 9:10 PM CDT 05/25/2019 9:15 PM CDT Joseph Sarabia DO LAB - CHEMISTRY [facility] [address] [phone] * (ABNORMAL) BASIC METABOLIC PANEL (CALCIUM TOTAL) (05/25/2019 9:10 PM CDT) BUN 14 7 - 26 mg/dL 05/25/2019 9:32 PM [facility] Creatinine 0.8 0.6 - 1.2 mg/dL 05/25/2019 9:32 PM [facility] Sodium 139 136 - 145 mmol/L 05/25/2019 9:32 PM [facility] Potassium 4.1 3.5 - 4.5 mmol/L 05/25/2019 9:32 PM [facility] Chloride 105 98 - 107 mmol/L 05/25/2019 9:32 PM [facility] CO2 25 22 - 29 mmol/L 05/25/2019 9:32 PM [facility] Glucose 151(H) 70 - 115 mg/dL 05/25/2019 9:32 PM [facility] Calcium 8.8 8.4 - 10.2 mg/dL 05/25/2019 9:32 PM [facility] Anion Gap 13 8 - 18 05/25/2019 9:32 PM [facility] BUN/Creatinine Ratio 18 7 - 23 05/25/2019 9:32 PM [facility] Osmolality Calculated 291 270 - 300 mOsm/kg 05/25/2019 9:32 PM [facility] eGFR >60 >60 mL/min/1.7 3 m2 05/25/2019 9:32 PM [facility] Blood BLOOD SPECIMEN / Unknown Venipuncture / Unknown 05/25/2019 9:10 PM CDT 05/25/2019 9:15 PM CDT Joseph Sarabia DO LAB - CHEMISTRY [facility] [address] [phone] * DRUG SCREEN EXPANDED TOXICOLOGY URINE PANEL (05/25/2019 6:38 PM CDT) Drug Screen Expanded See scanned report 05/25/2019 10:10 PM CDT [facility] Urine URINE / Unknown Collection / Unknown 05/25/2019 6:38 PM CDT 05/25/2019 9:58 PM CDT Sangeetha Berman MD LAB - URINE CHEMISTR Y ORDERABLES Performing Organization Address [facility] Co de Phone Number [address] [phone] * (ABNORMAL) URINALYSIS REFLEX TO MICROSCOPIC NO CULTURE (05/25/2019 6:38 PM CDT) Color UA Yellow Straw, Yellow, Colorless 05/25/2019 6:59 PM CDT [facility] Clarity UA Clear Clear, Slt Cloudy 05/25/2019 6:59 PM CDT [facility] Specific [place] UA 1.045(H) 1.005 - 1.030 05/25/2019 6:59 PM CDT [facility] pH UA 7.0 5.0 - 8.0 pH 05/25/2019 6:59 PM CDT [facility] Protein UA Negative Negative mg/dL 05/25/2019 6:59 PM CDT [facility] Glucose UA Negative Negative mg/dL 05/25/2019 6:59 PM CDT [facility] Ketone UA Negative Negative mg/dL 05/25/2019 6:59 PM CDT [facility] Bilirubin UA Negative Negative mg/dL 05/25/2019 6:59 PM CDT [facility] Blood UA Negative Negative 05/25/2019 6:59 PM CDT [facility] Nitrite UA Negative Negative 05/25/2019 6:59 PM CDT [facility] Leukocyte Esterase Negative Negative 05/25/2019 6:59 PM CDT [facility] Urobilinogen UA Negative Negative mg/dL 05/25/2019 6:59 PM T [facility] RBC UA 3-5 None Seen, 0-2, 3-5 /HPF 05/25/2019 6:59 PM [facility] WBC UA 0-5 None Seen, 0-5 /HPF 05/25/2019 6:59 PM T [facility] Squamous Epithelial Cells UA None Seen None Seen, 0-2 /HPF 05/25/2019 6:59 PM [facility] Mucus UA 1+ None, 1+ /LPF 05/25/2019 6:59 PM [facility] Urine URINE SPECIMEN OBTAINED BY SINGLE CATHETERIZATION OF URINARY BLADDER / Unknown Collection / Unknown 05/25/2019 6:38 PM CDT 05/25/2019 6:44 PM CDT [facility] - 05/25/2019 6:59 PM CDT Joseph Sarabia DO LAB - URINALYSIS ORD ERABLES [address] [phone] * (ABNORMAL) BLOOD GASES ARTERIAL (05/25/2019 6:26 PM CDT) pH Arterial 7.39 7.35 - 7.45 05/25/2019 6:47 PM [facility] pCO2 Arterial 40 35 - 45 mmHg 05/25/2019 6:47 PM [facility] pO2 Arterial 128(H) 77 - 101 mmHg 05/25/2019 6:47 PM [facility] HCO3 Arterial 24.1 22.0 - 26.0 mmol/L 05/25/2019 6:47 PM [facility] TCO2 Arterial 25.3 25.0 - 29.0 mmol/L 05/25/2019 6:47 PM [facility] Base Excess Arterial -0.7 -2.0 - 2.0 mmol/L 05/25/2019 6:47 PM [facility] Hemoglobin Arterial 13.1(L) 13.5 - 17.5 g/dL 05/25/2019 6:47 PM CDT [facility] Oxyhemoglobin Arterial 96.9 95.0 - 100.0 % 05/25/2019 6:47 PM CDT [facility] Carboxyhemoglobin 0.7 0.0 - 3.0 % 05/25/2019 6:47 PM CDT [facility] Methemoglobin 0.4 0.0 - 2.0 % 05/25/2019 6:47 PM CDT [facility] FI O2 Arterial 36.0 % 05/25/2019 6:47 PM CDT [facility] Blood, arterial ARTERIAL BLOOD SPECIMEN / Unknown Arterial Puncture / Unknown 05/25/2019 6:26 PM CDT 05/25/2019 6:44 PM CDT Sangeetha Berman MD LAB - BLOOD GASES OR DERABLES [address] [phone] * XR CHEST 1VW PORTABLE (05/25/2019 5:25 PM CDT) Anatomical Region Laterality Modality Chest Radiographic Radha ging 05/25/2019 5:34 PM CDT Impressions 05/26/2019 11:27 AM CDT IMPRESSION: 1.Minimal right basilar atelectatic changes. Report drafted by Coy Caro M.D. (resident) I, Dr. [place] TSONE M.D. have personally reviewed and interpreted this [...] PM CDT) ABO 05/25/2019 3:30 PM CDT [facility] Rh Type 05/25/2019 3:30 PM CDT [facility] Typem 05/25/2019 3:30 PM CDT [facility] Interpretation 05/25/2019 3:30 PM CDT [facility] Blood BLOOD SPECIMEN / Unknown Lab Venipuncture / Unknown 05/25/2019 1:50 PM CDT 05/25/2019 2:05 PM CDT Narrative [facility] - 05/25/2019 3:30 PM CDT Re-type confirmed per [facility] Blood Bank policies & procedures. Results documented in department. Jovany Almendarez MD LAB - BLOOD BANK ORD ERABLES [facility] [address] [place] [address], [facility] * [...] of maxilla. Dictated by Justina Hu DO (regional vice president life sales). Dr. NORA Barnes have personally reviewed and [...] of maxilla. Dictated by Justina Hu DO (regional vice president life sales). I, Dr. NORA BRADSHAW have personally reviewed [...] of maxilla. Dictated by Justina Hu DO (regional vice president life sales). I, Dr. NORA BRADSHAW have personally reviewed [...] of maxilla. Dictated by Justina Hu DO (regional vice president life sales). Dr. NORA Barnes have personally reviewed and [...] or lumbar spine. Dictated by Justina Hu (regional vice president life sales). Dr. NORA Barnes have personally reviewed and [...] or lumbar spine. Dictated by Justina Hu (regional vice president life sales). I, Dr. NORA BRADSHAW have personally reviewed [...] or lumbar spine. Dictated by Justina Hu (regional vice president life sales). I, Dr. NORA BRADSHAW have personally reviewed [...] or lumbar spine. Dictated by Justina Hu (regional vice president life sales). Dr. NORA Barnes have personally reviewed and [...] or lumbar spine. Dictated by Justina Hu (regional vice president life sales). Dr. NORA Barnes have personally reviewed and [...] or lumbar spine. Dictated by Justina Hu (regional vice president life sales). IDr. NORA have personally reviewed and interpreted [...] or pelvis. Dictated by Tong Shields MD (regional vice president life sales). Dr. ESPERANZA Barnes M.D. have personally reviewed [...] or pelvis. Dictated by Tong Shields MD (regional vice president life sales). I, Dr. ESPERANZA CALZADA M.D. have personally reviewed and interpretedthis examination/study. This report was electronically signed by ESPERANZA CALZADA M.D. on05/25/2019 11:15 AM . Joseph Sarabia DO CT ORDERABLES * PREPARE (CROSSMATCH) RBC UNIT(S), 1 Units (05/25/2019 10:45 AM CDT) Unit Description N/A [facility] Blood Bank BLOOD SPECIMEN / Unknown 05/25/2019 10:45 AM CDT 05/25/2019 10:45 AM CDT Kamron Corrigan MD LAB - BLOOD BANK ORDERABLES [facility] [address] * PREPARE (CROSSMATCH) RBC UNIT(S), 2 Units (05/25/2019 10:45 AM CDT) Unit Description N/A [facility] Blood Bank BLOOD SPECIMEN / Unknown 05/25/2019 10:45 AM CDT 05/25/2019 10:45 AM CDT Ricardo Burden MD LAB - BLOOD BANK O RDERABLES [facility] [address] * PREPARE (CROSSMATCH) RBC UNIT(S), 4 Units (05/25/2019 10:45 AM CDT) Unit Description LR Red Cells [facility] Unit ABO A [facility] Unit Rh NEG [facility] Product Number RL1 [facility] B LOOD [facility] LAB Unit Donor # [id number] 4 [facility] [id number] [facility] OD BANK LAB Blood Type Barcode 0600 [facility] Unit Description LR Red Cells [facility] Unit ABO A [facility] Unit Rh NEG [facility] LAB Product Number RL1 [facility] B LOOD BANK LAB Unit Donor # [id number] 3 [facility] B[facility]OD [facility] LAB Unit Status released [facility] BLOO D BANK LAB Product Code [id number] [facility] BLO OD BANK LAB Blood Type Barcode 0600 [facility] Unit Description LR Red Cells [facility] Unit ABO A [facility] Unit Rh NEG [facility] Product Number RL1 [facility] LOOD [facility] LAB Unit Donor # [id number] 4 [facility] BLOOD [facility] LAB Unit Status released [facility] BLOO D BANK LAB Product Code [id number]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
--- OUTSIDE RECORDS SUMMARY | 2024-02-27 12:08 | XMS_ITS | Encounter Summary ---
Author Organization [facility] Address [address] [place] [address]. [place] [address] [place] [address] Care Team Providers Care Rotary Screen Printing Machine Operator Name Role Phone Ilan Pearson MD Primary Care Provider [phone] Shroty Marks MD Unavailable Godfrey Lamb DPM Unavailable [phone] Encounter Details Date Type Department Care [...] Info) Description 08/02/2024 10:00 AM CDT Appointment [facility] [address] [place] [address] Shorty Marks MD [address] [place] [address] 08/02/2024 11:15 AM CDT Office Visit [facility] [address] [place] [address] Shorty Marks MD [address] [place], [place] [address] documented as of this encounter Visit Diagnoses Not on filedocumented in this encounter Care Teams Rotary Screen Printing Machine Operator Relationship Specialty Start Date End Date Ilan Pearson MD [address] [place] [address] PCP - General FAMILY PRACTICE 03/24/17 08/05/23 Shorty Marks MD [address] [place], [place] [address] Consulting Physician INTERNAL MEDICINE 05/02/22 Godfrey Lamb DPM [address] [place], [place] [address] PODIATRY 06/13/22 documented as of this encounter
--- OUTSIDE RECORDS SUMMARY | 2024-02-27 12:08 | XMS_ITS | Encounter Summary ---
Author Organization [facility] Address [address] [place] [address]. [place] [address] [place] [address] Care Team Providers Care Biotech Production Specialist Name Role Phone Barak Mckeon MD Primary Care Provider [phone] Shorty Marks MD Unavailable Godfrey Lamb DPM Unavailable [phone] Thomas Meneses MD Primary Care Provider [phone] Reason for Visit * Reason Comments Follow Up Encounter Details Date Type Department Care Team (Late st Contact Info) Description 08/04/2023 2:30 PM CDT Office Visit [facility] [place] [address] Shorty Marks MD [address] [place] [address] Follow Up Social History Tobacco Use Types [...] He is getting carotids and echo at [facility]. ASSESSMENT AND PLAN: 1. PAD. Patient does [...] Info) Description 08/02/2024 10:00 AM CDT Appointment [address] [place] [address] Shorty Marks MD [address] [place], [place] [address] 08/02/2024 11:15 AM CDT Office Visit [facility] [place] [address] Shorty Marks MD [address] [place], [place] [address] documented as of this encounter Visit Diagnoses Diagnosis PAD (peripheral artery disease) (CMS/HCC)- Primary Peripheral vascular disease, unspecified Mild hyperlipidemia Other and unspecified hyperlipidemia documented in this encounter Care Teams Biotech Production Specialist Relationship Specialty Start Date End Date Barak Mckeon MD [address] [place] [address] PCP - General FAMILY PRACTICE 03/24/17 08/05/23 Thomas Meneses MD [address] [place] [address] PCP - General FAMILY PRACTICE 08/06/23 Shorty Marks MD [address] [place] [address] Consulting Physician INTERNAL MEDICINE 05/02/22 Godfrey Lamb DPM [address] [place] [address] PODIATRY 06/13/22 documented as of this encounter
--- OUTSIDE RECORDS SUMMARY | 2024-02-27 12:08 | XMS_ITS | Encounter Summary ---
Author Organization [facility] Address [address] [place] [address]. [place] [address] [place] [address] Care Team Providers Care Sow Manager Name Role Phone Ilan Pearson MD Primary Care Provider [phone] Shorty Marks MD Unavailable Godfrey Lamb DPM Unavailable [phone] Reason for Referral * Imaging (Routine) - Closed Specialty Diagnoses / Procedures Referred By Contac t Referred To Contact RADIOLOGY Diagnoses PAD (peripheral artery disease) ([facility]/HCC) Procedures CTA AORTO ILIOFEM RUNOFF Shoryt Marks MD [address] [place] [address] Phone: tel: fax: Referral ID Status Reason Start Date Expiration Date Visits Re quested Visits Authorized [id number] Closed 06/03/2022 06/04/2023 1 1 Reason for Visit * Imaging (Routine) - Closed Specialty Diagnoses / Procedures Referred By Contac t Referred To Contact RADIOLOGY Diagnoses PAD (peripheral artery disease) ([facility]) Procedures CTA AORTO ILIOFEM RUNOFF Shorty Marks MD [address] [place] [address] Phone: tel: fax: Referral ID Status Reason Start Date Expiration Date Visits Re quested Visits Authorized [id number] Closed 06/03/2022 06/04/2023 1 1 Encounter Details Date Type Department Care Team (Latest Contact Info) Description 06/26/2022 12:28 PM CDT - 06/26/2022 12:47 PM CDT Hospital Encounter [facility] [address] [place] [address] Shorty Marks MD [address] [place], [place] [address] Discharge Disposition: Home or Self Care (Routine [...] Appointment [facility] [address] [place] [address] Shorty Marks MD [address] [place] [address] 08/02/2024 11:15 AM CDT Office Visit [facility] [address] [place] [address] Shorty Tapia MD [address] [place] [address] documented as of this encounter Procedures Procedure [...] Visit Diagnoses Diagnosis PAD (peripheral artery disease) ([facility]) Peripheral vascular disease, unspecified documented in [...] mLs documented in this encounter Care Teams Sow Manager Relationship Specialty Start Date End Date Ilan Pearson MD [address] [place] [address] PCP - General FAMILY PRACTICE 03/24/17 08/05/23 Shorty Marks MD [address] [place], [place] [address] Consulting Physician INTERNAL MEDICINE 05/02/22 Godfrey Lamb DPM [address] [place], [place] [address] PODIATRY 06/13/22 documented as of this encounter
--- OUTSIDE RECORDS SUMMARY | 2024-02-27 12:08 | XMS_ITS | Encounter Summary ---
Author Organization [facility] Address [address] [address]. [place] [address] [place] [address] Care Team Providers Care Polysomnographic Technologist Name Role Phone Shorty Marks MD Unavailable Godfrey Lamb DPM Unavailable [phone] Thomas Meneses MD Primary Care Provider [phone] Reason for Referral * Imaging (Routine) - Pending Review Specialty Diagnoses / Procedures Referred By Contac t Referred To Contact RADIOLOGY Diagnoses PAD (peripheral artery disease) (CMS/HCC) Mild hyperlipidemia Procedures [facility] Shorty Marks MD [address] [place] [address] Phone: tel: fax: Referral ID Status Reason Start Date Expiration Date V isits Requested Visits Authorized [id number] Pending Review 08/13/2023 08/12/2024 1 1 Reason for Visit * Reason Onset Date Comments Schedule Test 08/13/2023 BEAU and follow u p visit in [place]. Encounter Details Date Type Department Care Team (Late st Contact Info) Description 08/13/2023 Telephone [facility] [address] [place] [address] Shorty Marks MD [address] [place] [address] Schedule Test (BEAU and follow up visit in [place]./) Social History Tobacco Use Types Packs/Day Years [...] orders for 1 year follow up in [place]. Scheduled 1 year follow up. Created appointment letter sent via mail, no my chart set up yet. documented in this encounter Plan of Treatment Upcoming Encounters Date Type Department Care Team (Late st Contact Info) Description 08/02/2024 10:00 AM CDT Appointment [facility] [address] [place] [address] Shorty Marks MD [address] [place], [place] [address] 08/02/2024 11:15 AM CDT Office Visit [facility] [address] [place] [address] Shorty Marks MD [address] [place], [place] [address] Scheduled Orders Name Type Priority Associated Diagnoses Orde r Schedule [facility] US V[facility] Routine PAD (peripheral artery disease) Mild hyperlipidemia Expected: 08/12/2024 (Approximate), Expires: 02/11/2025 documented as of this encounter Visit Diagnoses Diagnosis PAD (peripheral artery disease) (CMS/[facility])- Primary Peripheral vascular disease, unspecified Mild hyperlipidemia Other and unspecified hyperlipidemia documented in this encounter Care Teams Polysomnographic Technologist Relationship Specialty Start Date End Date Thomas Meneses MD [address] [place] [address] PCP - General FAMILY PRACTICE 08/06/23 Shorty Marks MD [address] [place], [place] [address] Consulting Physician INTERNAL MEDICINE 05/02/22 Godfrey Lamb DPM [address] [place] [address] PODIATRY 06/13/22 documented as of this encounter
--- OUTSIDE RECORDS SUMMARY | 2024-02-27 12:08 | XMS_ITS | Clinical Summary ---
Author Organization [facility] Address [address] [place] [address]. [place] [address] [place] [address] Care Team Providers Care Bundle Packer Name Role Phone Shorty Marks MD Unavailable Godfrey Lamb DPShelbi Unavailable [phone] Thomas Meneses MD Primary Care Provider [phone] Allergies Active Allergy Reactions Criticality Noted Date [...] disease) 06/03/2022 Injury of cervical spinal cord ([facility]) 06/09/2019 Central cord syndrome ([facility]) 05/25/19 Mild hyperlipidemia Palpitations Family History Medical [...] Info) Description 08/02/2024 10:00 AM CDT Appointment [facility] [address] [place] [address] Shorty Marks MD [address] [place] [address] 08/02/2024 11:15 AM CDT Office Visit [facility] [address] [place] [address] Shorty Marks MD [address] [place], [place] [phone] Health Maintenance Due Date Last Done Comments [...] age to complete this topic Insurance MEDICAID [facility] [place] [id number] MEDICAID Care Teams Bundle Packer Relationship Specialty Start Date End Date Thomas Meneses MD [address] [place] [address] PCP - General FAMILY PRACTICE 08/06/23 Shorty Marks MD [address] [place] [address] Consulting Physician INTERNAL MEDICINE 05/02/22 Godfrey Lamb DPM [address] [place] [address] PODIATRY 06/13/22
--- OUTSIDE RECORDS SUMMARY | 2024-02-27 12:08 | XMS_ITS | Encounter Summary ---
Author Organization [facility] Address [address] [place] [address]. [place] [address] [place] [address] Care Team Providers Care Security Technician Name Role Phone Ilan Pearson MD Primary Care Provider [phone] Shorty Marks MD Unavailable Godfrey Lamb DPM Unavailable [phone] Encounter Details Date Type Department Care [...] 08/02/2024 10:[address] [place] [address] Shorty Marks MD [address] [place] [address] 08/02/2024 11:15 AM CDT Office Visit [facility] [place] [address] Shorty Marks MD [address] [place], [place] [address] documented as of this encounter Visit Diagnoses Not on filedocumented in this encounter Care Teams Security Technician Relationship Specialty Start Date End Date Ilan Pearson MD [address] [place] [address] PCP - General FAMILY PRACTICE 03/24/17 08/05/23 Shorty Marks MD [address] [place] [address] Consulting Physician INTERNAL MEDICINE 05/02/22 Godfrey Lamb DPM [address] [place] [address] PODIATRY 06/13/22 documented as of this encounter
--- OUTSIDE RECORDS SUMMARY | 2024-02-27 12:08 | XMS_ITS | Encounter Summary ---
Author Organization [facility] Address [address] [place] [address]. [place] [address] [place] [address] Care Team Providers Care Landscape Architect Name Role Phone Ilan Pearson MD Primary Care Provider [phone] Shorty Marks MD Unavailable Encounter Details Date Type Department Care Team (Late st Contact Info) Description 05/16/2022 Abstract [facility] [address] [place] [address] Shorty Marks MD [address] [place], [place] [address] Social History Tobacco Use Types Packs/Day Years [...] AM CDT [address] [place] [place] [address] Shorty Marks MD [address] [place] [address] 08/02/2024 11:15 AM CDT Office Visit [facility] [address] [address] Shorty Marks MD [address] [place] [address] documented as of this encounter Visit Diagnoses Not on filedocumented in this encounter Care Teams Landscape Architect Relationship Specialty Start Date End Date Ilan Pearson MD [address] [place] [address] PCP - General FAMILY PRACTICE 03/24/17 08/05/23 Shorty Marks MD [address] [place] [address] Consulting Physician INTERNAL MEDICINE 05/02/22 documented as of this encounter
--- OUTSIDE RECORDS SUMMARY | 2024-02-27 12:08 | XMS_ITS | Encounter Summary ---
Author Organization [facility] Address [address] [place] [address]. [place] [address] [place] [address] Care Team Providers Care Dialysis Tech Name Role Phone Barak Mckeon MD Primary Care Provider [phone] Shorty Marks MD Unavailable Godfrey Lamb DPM Unavailable [phone] Reason for Referral * Imaging (Routine) - Closed Specialty Diagnoses / Procedures Referred By Contac t Referred To Contact RADIOLOGY Diagnoses PAD (peripheral artery disease) ([facility]) Procedures [facility] [facility] Shoryt Marks MD [address] [place] [address] Phone: tel: fax: Referral ID Status Reason Start Date Expiration Date Visits Re quested Visits Authorized [id number] Closed 08/05/2022 09/05/2023 1 1 Reason for Visit * Reason Comments Follow Up PAD Encounter Details Date Type Department Care Team (Late st Contact Info) Description 08/05/2022 1:15 PM CDT Office Visit [facility] [place] [address] Shorty Marks MD [address] [place] [address] Follow Up (PAD) Social History [...] Diagnoses/Impression: 1. PAD (peripheral artery disease) (CMS/HCC) [employer] [facility] [employer] CANDICE Referring Provider: No ref. provider found PCP: BARAK MCKEON MD documented in this encounter Plan of Treatment Upcoming Encounters Date Type Department Care Team (Late st Contact Info) Description 08/02/2024 10:00 AM CDT Appointment [facility] [place] [address] Shorty Marks MD [address] [place] [address] 08/02/2024 11:15 AM CDT Office Visit [facility] [address] [place] [address] Shorty Marks MD [address] [place] [address] documented as of this encounter Results * [employer] CANDICE (08/04/2023 2:12 PM CDT) Anatomical Region Laterality Modality Extremity Ultrasound 08/04/2023 1:29 PM CDT Narrative 08/06/2023 5:36 PM CDT ?Outreach Arterial Doppler BEAU ?Vascular Report Pat.Name: ??Ajit Tyler ?Pat.ID: ?[id number] ? St.Date: ?? 08/04/2023 ? Refer.MD: ??Outreach, [facility] Exam Time: 1:29:00 PM ? Study Type:OUTREACH ART DOPPLER - BEAU ??Age: ??1960,63Y ?Sex: ? M ? Sonogrphr: silvino Flannery rdms, rvt, rdcs Pat. Stat.:Outpatient ? Reason for Study:PAD (peripheral artery disease) Procedures: Study performed at [place], [place] and interpreted by [facility]. ++++++++++++++++++++++++++++++++++++ SUMMARY: ++++++++++++++++++++++++++++++++++++ BEAU Rt: [...] Vascular Report Pat.Name: Jayson Ajit mays Pat.ID: [id number] .Date: 08/04/2023 [facility]: [facility] Time: 1:29:00 PM Study Type:OUTREACH ART DOPPLER - BEAU Age: 13 1960,63Y Sex: M Sonogrphr: silvino Flannery rdms, rvt, rdcs Pat. Stat.:Outpatient Reason for Study:PAD (peripheral artery disease) Procedures: Study performed at [place], [place] and interpreted by [facility]. ++++++++++++++++++++++++++++++++++++ SUMMARY: ++++++++++++++++++++++++++++++++++++ BEAU Rt: [...] vascular disease, unspecified PAD (peripheral artery disease) ([facility]) Peripheral vascular disease, unspecified documented in this encounter Care Teams Dialysis Tech Relationship Specialty Start Date End Date Barak Mckeon MD [address] [place] [address] PCP - General FAMILY PRACTICE 03/24/17 08/05/23 Shorty Marks MD [address] [place], [place] [address] Consulting Physician INTERNAL MEDICINE 05/02/22 Godfrey Lamb DPM [address] [place] [address] PODIATRY 06/13/22 documented as of this encounter
--- OUTSIDE RECORDS SUMMARY | 2024-02-27 12:08 | XMS_ITS | Encounter Summary ---
Author Organization [facility] Address [address] [place] [address]. [place] [address] [place] [address] Care Team Providers Care Primary Care Provider Name Role Phone Ilan Pearson MD Primary Care Provider [phone] Shorty Marks MD Unavailable Godfrey Lamb DPM Unavailable [phone] Reason for Visit * Reason Onset Date Comments Appointment Reminder 08/03/2023 Encounter Details Date Type Department Care Team (Late st Contact Info) Description 08/03/2023 Telephone [facility] [address] [place] [address] Shorty Marks MD [address] [place] [address] Appointment Reminder Social History Tobacco [...] confirmed appt for tomorrow with Selina in [place]. documented in this encounter Plan of Treatment Upcoming Encounters Date Type Department Care Team (Late st Contact Info) Description 08/02/2024 10:00 AM CDT Appointment [facility] [place] [address] Shorty Marks MD [address] [place], [place] [address] 08/02/2024 11:15 AM CDT Office Visit [facility] [address] [place] [address] Shorty Marks MD [address] [place], [place] [address] documented as of this encounter Visit Diagnoses Not on filedocumented in this encounter Care Teams Primary Care Provider Relationship Specialty Start Date End Date Ilan Pearson MD [address] [place] [address] PCP - General FAMILY PRACTICE 03/24/17 08/05/23 Shorty Marks MD [address] [place] [address] Consulting Physician INTERNAL MEDICINE 05/02/22 Godfrey Lamb DPM [address] [place], [place] [address] PODIATRY 06/13/22 documented as of this encounter
--- OUTSIDE RECORDS SUMMARY | 2024-02-27 12:08 | XMS_ITS | Encounter Summary ---
Author Organization [facility] Address [address] [place] [address]. [place] [address] [place] [address] Care Team Providers Care Breast Puller Name Role Phone Shorty Marks MD Unavailable Godfrey Lamb DPM Unavailable [phone] Thomas Meneses MD Primary Care Provider [phone] Reason for Visit * Reason Comments Echo (SCAN) Encounter Details Date Type Department Care Team (Late st Contact Info) Description 08/06/2023 Scan [facility] [address] [place] [address] Scanned, Doc Pccl Echo (SCAN) Social History [...] CDT Appointment [facility] [address] [place] [address] Shorty aMrks MD [address] [place] [address] 08/02/2024 11:15 AM CDT Office Visit [facility] [place] [address] Shorty Marks MD [address] [place], [place] [address] documented as of this encounter Procedures Procedure Name Priority Date/Time Associated Diagnosis Comments ECHO GENERIC (SCAN ORDER) Routine 08/06/2023 documented in this encounter Results * ECHO (08/06/2023) Anatomical Region Laterality Modality Other us Doc Pccl Scanned SCANNING Final Result documented in this encounter Visit Diagnoses Not on filedocumented in this encounter Care Teams Breast Puller Relationship Specialty Start Date End Date Thomas Meneses MD [address] [place] [address] PCP - General FAMILY PRACTICE 08/06/23 Shorty Marks MD [address] [place] [address] Consulting Physician INTERNAL MEDICINE 05/02/22 Godfrey Lamb DPM [address] [place], [place] [address] PODIATRY 06/13/22 documented as of this encounter
--- OUTSIDE RECORDS SUMMARY | 2024-02-27 12:08 | XMS_ITS | Encounter Summary ---
Author Organization [facility] Address [address] [facility] [place] [address] Care Team Providers Care World Travel Counselor Name Role Phone Ilan Pearson MD Primary Care Provider [phone] Reason for Visit * Auth/Cert Specialty Diagnoses / Procedures Referred By Alton fermin Referred To Contact Referral ID Status Reason Start Date Expiration Date Visits Re quested Visits Authorized [id number] 1 1 Encounter Details Date Type Department Care Team (Late st Contact Info) Description 05/27/2019 11:38 AM CDT Anesthesia Event [facility] [address] [place] [address] Susana Uriarte MD [address] [place] [address] Zaria Morel DO [address] [place] [address] Anesthesia Record Procedure Summary Procedure Name Responsible Anesthesiologist Anesthesia Start Time Anesthesia Stop Time C2 to C5 Posterior Interbody Spinal Fusion, C3-C4 Laminectomies, and possible decompression of C3/4 Injury (Back) Susana Uriaret MD 05/27/19 1138 05/27/19 1832 Events Date [...] Time : 1147; Placed By: Lisa Navarro [facility]; Vent: mask not attempted; Induction: Modified Rapid [...] procedural Anesthetic Plan was discussed with the MEDICAL RECRUITER and anesthesiologist. BMI, Height, Weight Tobacco History [...] History of ischemic heart disease? no Recent TX with 60 days = very high risk of MACE, requires cardiac consultation History of TX > 60 days History of positive stress [...] 2 mg/dl? no RCRI correlation with MACE (www.mdcalc.com/akprmby-ywuxyfc-mpgp-dsgka-doj-brnujyqld-risk, originally validated by Mac, T. Circulation. 1999;100:7036-3417) 0 Points - 0.4% risk 1 Point [...] place interrogation report in chart Information needed (product manager financial services, mode, indication for CIED, battery life, magnet function, PM dependence): Call PAT director or board catcher to discuss any patient with a CIED Timing of interrogation should be: Within 1 year for PM and Within 6 months for AICD (Source: 2010 The Heart Rhythm Society (HRS)/[place] Society of Anesthesiologists (ASA) Expert Consensus Statement [...] which blood bank will automatically send to [facility]. [facility] requires a 2nd confirmatory T&S before releasing crossmatched blood) Previous blood transfusion? no - If patient had a previous transfusion and likelihood of surgical blood loss is >250ml or a high risk procedure, then every attempt should be made to obtain a T&S in PAT, otherwise patient should be instructed to arrive early or not scheduled as a first start case. Please call flight attendant/inflight supervisor to discuss plan and document here: Patients [...] patients with DM, refer to PCP or manager of internal for BG >200 - CMP (instead of [...] this encounter Procedure Notes * Lisa Navarro APRN-MEDICAL RECRUITER - 05/27/2019 1:38 PM CDTAssociated Order(s): Arterial Line Placement Arterial Line Placement Procedure Note Patient Location: OR. Procedure: Arterial Line (56613). Procedure Section Indications: continuous blood pressure monitoring. [...] Event Date/Time: 05/27/2019 11:47 AM Procedure: intubation ([id number]). Procedure Section: Sedation: under general anesthesia. Indications [...] CDT Addendum created 05/30/19 08 by Mathieu Fowler DO Clinical Note Signed * Addendum Note [...] Primary: French Kim MD Resident - Assisting: Kamron Corrigan MD; Lizzeth Rogers MD Preop Diagnosis: [...] 05/27/19; Time: 1147; Placed By: Lisa Navarro APRN-MEDICAL RECRUITER; Vent: mask not attempted; Induction: Modified Rapid [...] Note Patient Location: OR. Procedure: Arterial Line ([id number]). Procedure Section ?? Indications: continuous blood pressure [...] Event Date/Time: ??05/27/2019 11:47 AM Procedure: intubation ([id number]). Procedure Section: ?? Sedation: under general anesthesia. [...] mg documented in this encounter Care Teams World Travel Counselor Relationship Specialty Start Date End Date Ilan Pearson MD [address] [place] [address] PCP - General Family Medicine 05/25/19 documented as of this encounter
--- OUTSIDE RECORDS SUMMARY | 2024-02-27 12:08 | XMS_ITS | Encounter Summary ---
Author Organization [facility] Address [address] [place] [address]. [place] [address] [place] [address] Care Team Providers Care Regional Sales Consultant Name Role Phone Ilan Pearson MD Primary Care Provider [phone] Shorty Marks MD Unavailable Godfrey Lamb DPM Unavailable [phone] Encounter Details Date Type Department Care Team (Latest Contact Info) Description 06/26/2022 12:48 PM CDT - 06/26/2022 11:59 PM CDT Hospital Encounter [place] [address] [place] [address] Angelito Gross MD [address] [place] [address] Discharge Disposition: Home or Self Care [...] Info) Description 08/02/2024 10:00 AM CDT Appointment [facility] [address] [place] [address] [place] [address] Shorty Marks MD [address] [place], [place] [address] 08/02/2024 11:15 AM CDT Office Visit [facility] [facility] [address] [facility] [address] Shorty Marks MD [address] [place], [place] [address] documented as of this encounter Procedures Procedure [...] - 10.80 x10'3/uL 06/26/2022 12:54 PM CDT [facility] RBC 4.29(L) 4.50 - 6.10 x10'6/uL 06/26/2022 12:54 PM CDT [facility] HGB 10.7(L) 13.0 - 18.0 G/DL 06/26/2022 12:54 PM CDT [facility] HCT 34.6(L) 37.0 - 52.0 % 06/26/2022 12:54 PM CDT [facility] MCV 80.7 78.0 - 100.0 FL 06/26/2022 12:54 PM CDT [facility] MCH 24.9(L) 27.0 - 31.0 PG 06/26/2022 12:54 PM CDT [facility] MCHC 30.9(L) 33.0 - 36.0 G/DL 06/26/2022 12:54 PM CDT [facility] RDW 14.1 11.5 - 14.5 % 06/26/2022 12:54 PM CDT [facility] PLT 308 150 - 350 x10'3/uL 06/26/2022 12:54 PM CDT [facility] MPV 10.6(H) 7.4 - 10.4 FL 06/26/2022 12:54 PM CDT [facility] CBC COMMENT NORMAL REFERENCE RANGE NOT ESTABLISHED FOR THE PROPORTIONAL LEUKOCYTE DIFFERENTIAL. 06/26/2022 12:54 PM CDT [facility] NEUTROPHILS % 55.5 % 06/26/2022 12:54 PM CDT [facility] LYMPHOCYTES % 32.4 % 06/26/2022 12:54 PM CDT [facility] MONOCYTES % 6.5 % 06/26/2022 12:54 PM CDT [facility] EOSINOPHILS % 4.5 % 06/26/2022 12:54 PM CDT [facility] BASOPHILS % 0.9 % 06/26/2022 12:54 PM CDT [facility] IMMATURE GRANS % 0.2 % 06/27/19 12:54 PM CDT [facility] NRBC 0.0 % 06/26/2022 12:54 PM CDT [facility] ABS. NEUTROPHILS 3.08 1.60 - 8.30 x10'3/uL 06/26/2022 12:54 PM CDT [facility] ABS. LYMPHOCYTES 1.80 0.80 - 4.70 x10'3/uL 06/26/2022 12:54 PM CDT [facility] ABS. MONOCYTES 0.36 0.00 - 1.50 x10'3/uL 06/26/2022 12:54 PM CDT [facility] ABS. EOSINOPHILS 0.25 0.00 - 0.40 x10'3/uL 06/26/2022 12:54 PM CDT [facility] ABS. BASOPHILS 0.05 0.00 - 0.20 x10'3/uL 06/26/2022 12:54 PM CDT [facility] ABS. IMMATURE GRANULOCYTES 0.01 0.00 - 0.03 x10'3/uL 06/26/2022 12:54 PM CDT [facility] ABS. NUCLEATED RBC'S 0.00 0.00 x10'3/uL 06/26/2022 12:54 PM CDT [facility] 06/26/2022 12:4 5 PM CDT us Angelito Gross MD LABORATORY Final Result [facility] [address] [place] [id number], * (ABNORMAL) BASIC METABOLIC PANEL (06/26/2022 12:45 PM CDT) SODIUM S/P/B 142 136 - 145 MMOL/L 06/26/2022 1:05 PM CDT [facility] POTASSIUM S/P/B 4.2 3.5 - 5.1 MMOL/L 06/26/2022 1:05 PM CDT [facility] CHLORIDE S/P/B 107 98 - 107 MMOL/L 06/26/2022 1:05 PM CDT [facility] CO2 29.3 21.0 - 32.0 MMOL/L 06/26/2022 1:05 PM CDT [facility] GLUCOSE 87 70 - 99 MG/DL 06/26/2022 1:05 PM CDT [facility] Comment: FASTING GLUCOSE 100 TO 125 MG/DL IS CONSISTENT WITH IMPAIRED FASTING GLUCOSE. FASTING GLUCOSE >125 MG/DL IS CONSISTENT WITH DIABETES. RANDOM GLUCOSE >200 MG/DL WITH HYPERGLYCEMIC SYMPTOMS IS CONSISTENT WITH DIABETES. PER ADA GUIDELINES BUN 16 6 - 24 MG/DL 06/26/2022 1:05 PM CDT [facility] CREATININE S/P/B 1.03 0.70 - 1.30 MG/DL 06/26/2022 1:05 PM CDT [facility] CALCIUM S/P/B 8.9 8.4 - 10.5 MG/DL 06/26/2022 1:05 PM CDT [facility] ANION GAP 5.7 5.0 - 15.0 MMOL/L 06/26/2022 1:05 PM CDT [facility] OSMOLALITY (CALC) 295 MOSM/KG 023 1:05 PM CDT [facility] Comment:REFERENCE RANGE NOT ESTABLISHED GFR ESTIMATE 83(L) >89 ML/MIN/1. 73 M2 06/26/2022 1:05 PM CDT [facility] GFR NOTES GFR REFERENCE S: 06/26/2022 1:05 PM T [facility] Comment: THE ESTIMATED GFR IS [...] us Angelito Gross MD LABORATORY Final Result [facility] [address] [place] [address], documented in this encounter Visit Diagnoses Diagnosis Renal calculus, right Calculus of kidney Ureteral stenosis, right Stricture or kinking of ureter documented in this encounter Care Teams Regional Sales Consultant Relationship Specialty Start Date End Date Ilan Pearson MD [address] [place] [address] PCP - General FAMILY PRACTICE 03/24/17 08/05/23 Shorty Marks MD [address] [place], [place] [address] Consulting Physician INTERNAL MEDICINE 05/02/22 Godfrey Lamb DPM [address] [place], [place] [address] PODIATRY 06/13/22 documented as of this encounter
--- OUTSIDE RECORDS SUMMARY | 2024-02-27 12:08 | XMS_ITS | Encounter Summary ---
Author Organization [facility] Address [address] [place] [address]. [place] [address] [place] [address] Care Team Providers Care Ammunition And Explosives Handler Name Role Phone Ilan Pearson MD Primary Care Provider [phone] Shorty Marks MD Unavailable Encounter Details Date Type Department Care Team (Late st Contact Info) Description 05/02/2022 Abstract [facility] [address] [place] [address] Shorty Marks MD [address] [place], [place] [address] Social History Tobacco Use Types Packs/Day Years [...] AM CDT [address]ointment [facility] [address] Shoryt Marks MD [address] [place] [address] 08/02/2024 11:15 AM CDT Office Visit [facility] [address] [place] [address] Shorty Marks MD [address] [place] [address] documented as of this encounter Visit Diagnoses Not on filedocumented in this encounter Care Teams Ammunition And Explosives Handler Relationship Specialty Start Date End Date Ilan Pearson MD [address] [place] [address] PCP - General FAMILY PRACTICE 03/24/17 08/05/23 Shorty Marks MD [address] [place] [address] Consulting Physician INTERNAL MEDICINE 05/02/22 documented as of this encounter
--- OUTSIDE RECORDS SUMMARY | 2024-02-27 12:08 | XMS_ITS | Encounter Summary ---
Author Organization [facility] Address [address] [place] [address]. [place] [address] [place] [address] Care Team Providers Care Digital Advertising Analyst Name Role Phone Ilan Pearson MD Primary Care Provider [phone] Shorty Marks MD Unavailable Godfrey Lamb DPM Unavailable [phone] Reason for Visit * Reason Onset Date Comments Other 06/13/2022 Julissa pulliam/ requested H+P Encounter Details Date Type Department Care Team (Late st Contact Info) Description 06/13/2022 Telephone [facility] [address] [place] [address] Shorty Marks MD [address] [place] [address] Other (Julissa pulliam/ requested H+P [...] Info) Description 08/02/2024 10:00 AM CDT Appointment [address] [place] [address] Shorty Marks MD [address] [place], [place] [address] 08/02/2024 11:15 AM CDT Office Visit [facility] [place] [address] Shorty Marks MD [address] [place], [place] [address] documented as of this encounter Visit Diagnoses Not on filedocumented in this encounter Care Teams Digital Advertising Analyst Relationship Specialty Start Date End Date Ilan Pearson MD [address] [place] [address] PCP - General FAMILY PRACTICE 03/24/17 08/05/23 Shorty Marks MD [address] [place] [address] Consulting Physician INTERNAL MEDICINE 05/02/22 Godfrey Lamb DPM [address] [place] [address] PODIATRY 06/13/22 documented as of this encounter
--- OUTSIDE RECORDS SUMMARY | 2024-02-27 12:08 | XMS_ITS | Encounter Summary ---
Author Organization [facility] Address [address] [place] [address]. [place] [address] [place] [address] Care Team Providers Care Outside Energy Sales Representatives Name Role Phone Ilan Pearson MD Primary Care Provider [phone] Shorty Marks MD Unavailable Godfrey Lamb DPM Unavailable [phone] Reason for Referral * Imaging (Routine) - Closed Specialty Diagnoses / Procedures Referred By Contac t Referred To Contact RADIOLOGY Diagnoses PAD (peripheral artery disease) (CMS/HCC) Procedures [facility] Shorty Will MD [address] [place] [address] Phone: tel: fax: Referral ID Status Reason Start Date Expiration Date Visits Re quested Visits Authorized [id number] Closed 08/05/2022 09/05/2023 1 1 Reason for Visit * Imaging (Routine) - Closed Specialty Diagnoses / Procedures Referred By Contac t Referred To Contact RADIOLOGY Diagnoses PAD (peripheral artery disease) ([facility]/HCC) Procedures [facility] Shorty Will MD [address] [place] [address] Phone: tel: fax: Referral ID Status Reason Start Date Expiration Date Visits Re quested Visits Authorized [id number] Closed 08/05/2022 09/05/2023 1 1 Encounter Details Date Type Department Care Team (Latest Contact Info) Description 08/04/2023 1:20 PM CDT - 08/04/2023 11:59 PM CDT Hospital Encounter [facility] [address] [place] [address] Shorty Marks MD [address] [place], [place] [address] Discharge Disposition: Home or Self Care (Routine [...] Appointment [facility] [address] [place] [address] Shorty Marks MD [address] [place], [place] [address] 08/02/2024 11:15 AM CDT Office Visit [facility] [address] [place] [phone] Shorty Marks MD [address] [place], [place] [address] documented as of this encounter Procedures Procedure [...] BEAU ?Vascular Report Pat.Name: ??Ajit Tyler ?Pat.ID: ?[id number] ? St.Date: ?? 08/04/2023 ? Refer.MD: ??Outreach, [facility] Exam Time: 1:29:00 PM ? Study Type:OUTREACH ART DOPPLER - BEAU ??Age: ??1960,63Y ?Sex: ? M ? Sonogrphr: silvino Flannery rdms, rvt, rdcs Pat. Stat.:Outpatient ? Reason for Study:PAD (peripheral artery disease) Procedures: Study performed at [facility], [place], [place] and interpreted by [facility]. ++++++++++++++++++++++++++++++++++++ SUMMARY: ++++++++++++++++++++++++++++++++++++ BEAU Rt: The resting BEAU is 0.90. BEAU Rt: This suggests mild disease. BEAU Rt: Pulse volume tracings suggest mild-moderate peripheral arterial occlusive disease. BEAU Rt: The toe pressure is 86 mmHg. BEAU Rt: The TBI is 0.67. BEAU Rt: TBI is within abnormal range. EBAU Lt: The resting BEAU is 0.90. BEAU [...] BEAU Vascular Report Pat.Name: Ajit Tyler Pat.ID: [id number] .Date: 08/04/2023 Refer.MD: Dani, [facility] Exam Time: 1:29:00 PM Study Type:OUTREACH ART DOPPLER - BEAU Age: 13 1960,63Y Sex: M Sonogrphr: silvino Flannery rdms, rvt, rdcs Pat. Stat.:Outpatient Reason for Study:PAD (peripheral artery disease) Procedures: Study performed at [place], [place] and interpreted by [facility]. ++++++++++++++++++++++++++++++++++++ SUMMARY: ++++++++++++++++++++++++++++++++++++ BEAU Rt: [...] Visit Diagnoses Diagnosis PAD (peripheral artery disease) ([facility]) Peripheral vascular disease, unspecified documented in this encounter Care Teams Outside Energy Sales Representatives Relationship Specialty Start Date End Date Ilan Pearson MD [address] [place] [address] PCP - General FAMILY PRACTICE 03/24/17 08/05/23 Shorty Marks MD [address] [place] [id number] Consulting Physician INTERNAL MEDICINE 05/02/22 Godfrey Lamb DPM [address] [place] [id number] PODIATRY 06/13/22 documented as of this encounter
--- OUTSIDE RECORDS SUMMARY | 2024-02-27 12:09 | XMS_ITS | Encounter Summary ---
Author Organization [facility] Address [address] [place] [address]. [place] [address] [place] [address] Care Team Providers Care Shaker Plate Operator Name Role Phone Ilan Pearson MD Primary Care Provider [phone] Jose Decker MD Unavailable Unavailab le Encounter Details Date Type Department Care Team (Late st Contact Info) Description 05/11/2017 Orders Only [facility] [address] [place] [address] Jose Decker MD Social History [...] Appointment [facility] [address] [place] [address] Shorty Marks MD [address] [place], [place] [address] 08/02/2024 11:15 AM CDT Office Visit [facility] [address] [place] [address] Shorty Marks MD [address] [place] [address] documented as of this encounter Visit Diagnoses Not on filedocumented in this encounter Care Teams Shaker Plate Operator Relationship Specialty Start Date End Date Ilan Pearson MD [address] [place] [address] PCP - General FAMILY PRACTICE 03/24/17 08/05/23 Jose Decker MD [address] [place] [address] [place] Society Editor CARDIOVASCULAR DISEASE 03/24/17 05/01/22 documented as of this encounter
--- OUTSIDE RECORDS SUMMARY | 2024-02-27 12:09 | XMS_ITS | Encounter Summary ---
Author Organization [facility] Address [address] [place] [address]. [place] [address] [place] [address] Care Team Providers Care Critical Care Physician Assistant Name Role Phone Ilan Pearson MD Primary Care Provider [phone] Jose Decker MD Unavailable Unavailab le Encounter [...] Info) Description 08/02/2024 10:00 AM CDT Appointment [facility] [address] [place] [address] Shorty Marks MD [address] [place], [place] [address] 08/02/2024 11:15 AM CDT Office Visit [facility] [address] [place] [address] Shorty Marks MD [address] [place] [address] documented as of this encounter Visit Diagnoses Not on filedocumented in this encounter Additional Health Concerns Infection Onset Date Last Indicated Resolved Time COVID-19 Rule Out 10/08/2021 10/08/2021 10/08/2021 9:12 PM CDT COVID-19 Confirmed 10/08/2021 10/08/2021 12:34 AM CDT documented as of this encounter Care Teams Critical Care Physician Assistant Relationship Specialty Start Date End Date Ilan Pearson MD [address] [place] [address] PCP - General FAMILY PRACTICE 03/24/17 08/05/23 Jose Decker MD [address] [place] [address] [place] Charge Attendant CARDIOVASCULAR DISEASE 03/24/17 05/01/22 documented as of this encounter
--- OUTSIDE RECORDS SUMMARY | 2024-02-27 12:09 | XMS_ITS | Encounter Summary ---
Author Organization [facility] Address [address] [place] [address]. [place] [address] [place] [address] Care Team Providers Care Lamps Tester And Inspector Name Role Phone Ilan Pearson MD Primary Care Provider [phone] Jose Decker MD Unavailable Unavailab le Encounter [...] Description 08/02/2024 10:00 AM CDT Appointment [facility] [address] [place] [address] Shorty Marks MD [address] [place] [address] 08/02/2024 11:15 AM CDT Office Visit [facility] [address] [place] [address] Shorty Marks MD [address] [place] [address] documented as of this encounter Visit Diagnoses Not on filedocumented in this encounter Care Teams Lamps Tester And Inspector Relationship Specialty Start Date End Date Ilan Pearson MD [address] [place] [address] PCP - General FAMILY PRACTICE 03/24/17 08/05/23 Jose Decker MD [address] [place] [address] [place] Package Wrapper CARDIOVASCULAR DISEASE 03/24/17 05/01/22 documented as of this encounter
--- OUTSIDE RECORDS SUMMARY | 2024-02-27 12:09 | XMS_ITS | Encounter Summary ---
Author Organization [facility] Address [address] [place] [address]. [place] [address] [place] [address] Care Team Providers Care Boat Diesel Motor Mechanic Name Role Phone Ilan Pearson MD Primary Care Provider [phone] Jose Decker MD Unavailable Unavailab le Encounter Details Date Type Department Care Team (Latest Contact Info) Description 03/15/2022 1:07 PM FINANCIAL INSTITUTION VICE PRESIDENT - 03/15/2022 11:59 PM FINANCIAL INSTITUTION VICE PRESIDENT Hospital Encounter [facility] [address] [facility] [place] [address] Angelito Gross MD [address] [place] [address] Discharge Disposition: Home or Self Care [...] Coronavirus/COVID-19? No / Unsure 03/15/2022 1:05 PM FINANCIAL INSTITUTION VICE PRESIDENT documented as of this encounter Medications at [...] CDT Appointment [facility] [address] [place] [address] Shorty Marks MD [address] [place], [place] [address] 08/02/2024 11:15 AM CDT Office Visit [facility] [address] [place] [address] Shorty Marks MD [address] [place], [place] [address] documented as of this encounter Procedures Procedure Name Priority Date/Time Associated Diagnosis Comments CORONAVIRUS (COVID 19) Routine 03/15/2022 1:16 PM FINANCIAL INSTITUTION VICE PRESIDENT Encounter for preoperative screening laboratory testing for COVID-19 virus documented in this encounter Results * PRE-SURGICAL/PRE-PROCEDURE CORONAVIRUS (COVID 19) (03/15/2022 1:16 PM FINANCIAL INSTITUTION VICE PRESIDENT) SPEC DESCRIPTION NASAL 03/15/19 1:16 PM FINANCIAL INSTITUTION VICE PRESIDENT [facility] CORONAVIRUS SARS COV 2 PCR (RESP) NEGATIVE NEGATIVE 03/17/2022 8:17 PM FINANCIAL INSTITUTION VICE PRESIDENT [facility] Comment: THE SARS-CoV-2 TEST HAS BEEN AUTHORIZED BY THE FDA UNDER AN EUA FOR USE BY AUTHORIZED LABORATORIES. PERFORMED BY NUCLEIC ACID AMPLIFICATION PCR FIRST TEST NO 03/15/2022 1:16 PM FINANCIAL INSTITUTION VICE PRESIDENT [facility] EMPLOYED IN HEALTHCARE NO 03/15/2022 1:16 PM FINANCIAL INSTITUTION VICE PRESIDENT [facility] SYMPTOMATIC DEFINED BY CDC NO 03/15/2022 1:16 PM FINANCIAL INSTITUTION VICE PRESIDENT [facility] HOSPITALIZATION STATUS NO 03/15/2022 1:16 PM FINANCIAL INSTITUTION VICE PRESIDENT [facility] PATIENT IN ICU NO 03/15/2022 1:16 PM FINANCIAL INSTITUTION VICE PRESIDENT [facility] RESIDENT OF [facility] NO 03/15/2022 1:16 PM FINANCIAL INSTITUTION VICE PRESIDENT [facility] NASAL STRUCTURE / Unknown 03/15/2022 1:16 PM FINANCIAL INSTITUTION VICE PRESIDENT us Angelito rGoss MD MICROBIOLOGY - GENERAL ORDERABLE S Final Result [facility] [address] [place] [address], [facility] [address] [place] [address], documented in this encounter Visit Diagnoses Diagnosis Encounter for preoperative screening laboratory testing for COVID-19 virus documented in this encounter Additional Health Concerns Infection Onset Date Last Indicated Resolved Time COVID-19 Rule Out 03/15/2022 03/15/2022 03/17/2022 8:17 PM FINANCIAL INSTITUTION VICE PRESIDENT documented as of this encounter Care Teams Boat Diesel Motor Mechanic Relationship Specialty Start Date End Date Ilan Pearson MD [address] [place] [address] PCP - General FAMILY PRACTICE 03/24/17 08/05/23 Jose Dekcer MD [address] [place] [address] [place] Cleaner Furniture CARDIOVASCULAR DISEASE 03/24/17 05/01/22 documented as of this encounter
--- OUTSIDE RECORDS SUMMARY | 2024-02-27 12:09 | XMS_ITS | Encounter Summary ---
Author Organization [facility] Address [address] [place] [address]. [place] [address] [place] [address] Care Team Providers Care Parking Meter Collector Name Role Phone Ilan Pearson MD Primary Care Provider [phone] Jose Decker MD Unavailable Unavailab le Encounter Details Date Type Department Care Team (Late st Contact Info) Description 10/08/[address] [facility] [address] [place] [address] Ilya Terrell MD [address] [address] [place], [place] [address] Social History Tobacco Use Types Packs/Day Years [...] CDT Appointment [facility] [address] [place] [address] Shorty Marks MD [address] [place] [address] 08/02/2024 11:15 AM CDT Office Visit [facility] [place] [address] Shorty Marks MD [address] [place] [address] documented as of this encounter Results * (ABNORMAL) PRE-SURGICAL/PRE-PROCEDURE CORONAVIRUS (COVID 19) (10/08/2021 10:43 AM CDT) SPEC DESCRIPTION NASAL 10/09/19 10:42 AM CDT [facility] CORONAVIRUS SARS COV 2 PCR (RESP) POSITIVE( AA) NEGATIVE 10/08/2021 9:12 PM CDT [facility] Comment: THE SARS-CoV-2 TEST HAS BEEN AUTHORIZED BY THE FDA UNDER AN EUA FOR USE BY AUTHORIZED LABORATORIES. PERFORMED BY NUCLEIC ACID AMPLIFICATION PCR CALLED TO VAMSHI 10/09/2021 0745 R and V FIRST TEST NO 10/08/2021 10:42 AM CDT [facility] EMPLOYED IN HEALTHCARE NO 10/08/2021 10:42 AM CDT [facility] SYMPTOMATIC DEFINED BY CDC NO 10/08/2021 10:42 AM CDT [facility] HOSPITALIZATION STATUS NO 10/08/2021 10:42 AM CDT [facility] PATIENT IN ICU NO 10/08/2021 10:42 AM CDT [facility] RESIDENT OF [facility] NO 10/08/2021 10:42 AM CDT [facility] NASAL STRUCTURE / Unknown 10/08/2021 10:43 AM CDT us Ilya Terrell MD MICROBIOLOGY - GENERAL ORDERABLE S Final Result [facility] [address] [place] [address], documented in this encounter Visit Diagnoses Diagnosis Encounter for screening for COVID-19- Primary documented in this encounter Additional Health Concerns Infection Onset Date Last Indicated Resolved Time COVID-19 Rule Out 10/08/2021 10/08/2021 10/08/2021 9:12 PM CDT COVID-19 Confirmed 10/08/2021 10/08/2021 12:34 AM CDT documented as of this encounter Care Teams Parking Meter Collector Relationship Specialty Start Date End Date Ilan Pearson MD [address] [place] [address] PCP - General FAMILY PRACTICE 03/24/17 08/05/23 Jose Decker MD [address] [place] [address] [place] Sales Training Manager CARDIOVASCULAR DISEASE 03/24/17 05/01/22 documented as of this encounter
--- OUTSIDE RECORDS SUMMARY | 2024-02-27 12:09 | XMS_ITS | Encounter Summary ---
Author Organization [facility] Address [address] [place] [address]. [place] [address] [place] [address] Care Team Providers Care Microsoft Infrastructure Consultant Name Role Phone Ilan Pearson MD Primary Care Provider [phone] Jose Decker MD Unavailable Unavailab le Reason for Visit * Reason Comments Holter Monitor Report (SCAN) Encounter Details Date Type Department Care Team (Late st Contact Info) Description 05/12/2017 Scan [facility] [address] [place] [phone] Scanned, Documents Holter Monitor Report (SCAN) Social [...] Appointment [facility] [address] [place] [address] Shorty Marks MD [address] [place] [address] 08/02/2024 11:15 AM CDT Office Visit [facility] [address] [place] [address] Shorty Marks MD [address] [place] [address] documented as of this encounter Procedures Procedure Name Priority Date/Time Associated Diagnosis Comments HOLTER DOCUMENT (SCAN ORDER) Routine 04/08/2017 Palpitations documented in this encounter Results * HOLTER DOCUMENT (04/08/2017) us Documents Scanned SCANNING Final Result documented in this encounter Visit Diagnoses Diagnosis Palpitations- Primary documented in this encounter Care Teams Microsoft Infrastructure Consultant Relationship Specialty Start Date End Date Ilan Pearson MD [address] [place] [address] PCP - General FAMILY PRACTICE 03/24/17 08/05/23 Jose Decker MD [address] [place] [address] [place] Clinical Haematologist CARDIOVASCULAR DISEASE 03/24/17 05/01/22 documented as of this encounter
--- OUTSIDE RECORDS SUMMARY | 2024-02-27 12:09 | XMS_ITS | Encounter Summary ---
Author Organization [facility] Address [address] [place] [address]. [place] [address] [place] [address] Care Team Providers Care Manager Internet Name Role Phone Ilan Pearson MD Primary Care Provider [phone] Jose Decker MD Unavailable Unavailab le Encounter Details Date Type Department Care Team (Latest Contact Info) Description 05/09/2020 12:57 PM CDT - 05/09/2020 11:59 PM CDT Hospital Encounter [facility] [address] [facility] [place] [address] [place] [address] [address] Discharge Disposition: Home or Self [...] Info) Description 08/02/2024 10:00 AM CDT Appointment [facility] [address] [place] [address] [place] [address] Shorty Marks MD [address] [place], [place] [phone] 08/02/2024 11:15 AM CDT Office Visit [facility] [place] [address] Shorty Marks MD [address] [place], [place] [phone] documented as of this encounter Procedures Procedure [...] URINE STRAIGHT CATH 05/09/2020 1:23 PM CDT [facility] SPECIAL REQUESTS NO SPECIAL REQUEST 05/09/2020 1:23 PM CDT [facility] CULTURE RESULT >100,000 CFU/mL STAPHYLOCOCCU S, COAGULASE NEGATIVE 05/11/2020 1:14 PM CDT [facility] URINE SPECIMEN OBTAINED BY SINGLE CATHETERIZATION [...] MICROBIOLOGY - GENERAL O RDERABLES Final Result [facility] [address] [place] [address], [place] [phone] [id number] [facility] [address] [place] [address], * (ABNORMAL) URINALYSIS (05/09/2020 1:20 PM CDT) COLOR (U) YELLOW 05/09/2020 1:35 PM CDT [facility] TRANSPARENCY CLEAR 05/09/2020 1:35 PM CDT [facility] SPECIFIC GRAVITY (U) 1.015 1.000 - 1.025 05/09/2020 1:35 PM CDT [facility] U PH 6.5 5.0 - 8.0 05/09/2020 1:35 PM CDT [facility] LEUKOCYTES (U) TRACE(A) NEGATIVE 05/09/2020 1:35 PM CDT [facility] NITRITES NEGATIVE NEGATIVE 05/09/2020 1:35 PM CDT [facility] PROTEIN (U) NEGATIVE NEGATIVE 05/09/2020 1:35 PM CDT [facility] URINE GLUCOSE NEGATIVE NEGATIVE 05/09/2020 1:35 PM CDT [facility] KETONES MG/DL (U) NEGATIVE NEGATIVE 05/09/2020 1:35 PM CDT [facility] UROBILINOGEN 0.2 <1.0 EU/DL 05/09/2020 1:35 PM CDT [facility] BILIRUBIN (U) NEGATIVE NEGATIVE 05/09/2020 1:35 PM CDT [facility] BLOOD (U) 2+(A) NEGATIVE 05/09/2020 1:35 PM CDT [facility] WBC/HPF 0-5 0 - 5 /HPF 05/09/2020 1:35 PM CDT [facility] RBC/HPF 5-10(A) 0 - 5 /HPF 05/09/2020 1:35 PM CDT [facility] EPI/HPF OCCASIONAL /LPF 05/09/2020 1:35 PM CDT [facility] BACTERIA (U) TRACE /HPF 05/09/2020 1:35 PM CDT [facility] URINE, STRAIGHT CATH 05/09/2020 1:20 PM CDT us Jessie Hidalgo III, MD URINE ORDERABLES Final R esult [facility] [address] [place] [address], documented in this encounter Visit Diagnoses Diagnosis Retention of urine, unspecified Neurogenic dysfunction of the urinary bladder Neurogenic bladder, NOS UTI (urinary tract infection) Urinary tract infection, site not specified documented in this encounter Care Teams Manager Internet Relationship Specialty Start Date End Date Ilan Pearson MD [address] [place], [place] [phone] PCP - General FAMILY PRACTICE 03/24/17 08/05/23 Jose Decker MD [address] [place] [address] [place] Superintendent Of Schools CARDIOVASCULAR DISEASE 03/24/17 05/01/22 documented as of this encounter
--- OUTSIDE RECORDS SUMMARY | 2024-02-27 12:09 | XMS_ITS | Encounter Summary ---
Author Organization [facility] Address [address] [place] [address]. [place] [address] [place] [address] Care Team Providers Care Racing Car Driver Name Role Phone Ilan Pearson MD Primary Care Provider [phone] Jose Decker MD Unavailable Unavailab le Encounter Details Date Type Department Care Team (Late st Contact Info) Description 05/09/[address] [facility] [address] [place] [address] [place] [address] [place] [phone] Social History Tobacco Use Types Packs/Day [...] Appointment [facility] [address] [place] [address] Shorty Marks MD [address] [place] [address] 08/02/2024 11:15 AM CDT Office Visit [facility] [address] [place] [address] Shorty Marks MD [address] [place] [address] documented as of this encounter Results * CULTURE URINE (05/09/2020 1:20 PM CDT) SPEC DESCRIPTION URINE STRAIGHT CATH 05/09/2020 1:23 PM CDT [facility] SPECIAL REQUESTS NO SPECIAL REQUEST 05/09/2020 1:23 PM CDT [facility] CULTURE RESULT >100,000 CFU/mL STAPHYLOCOCCU S, COAGULASE NEGATIVE 05/11/2020 1:14 PM CDT [facility] URINE SPECIMEN OBTAINED BY SINGLE [...] MICROBIOLOGY - GENERAL O RDERABLES Final Result [facility] [address] [place] [address], [place] [phone] [id number] [facility] [address] [place] [address], [place] [phone] * (ABNORMAL) URINALYSIS (05/09/2020 1:20 PM CDT) COLOR (U) YELLOW 05/09/2020 1:35 PM CDT [facility] TRANSPARENCY CLEAR 05/09/2020 1:35 PM CDT [facility] SPECIFIC GRAVITY (U) 1.015 1.000 - 1.025 05/09/2020 1:35 PM CDT [facility] U PH 6.5 5.0 - 8.0 05/09/2020 1:35 PM CDT [facility] LEUKOCYTES (U) TRACE(A) NEGATIVE 05/09/2020 1:35 PM CDT [facility] NITRITES NEGATIVE NEGATIVE 05/09/2020 1:35 PM CDT [facility] PROTEIN (U) NEGATIVE NEGATIVE 05/09/2020 1:35 PM CDT [facility] URINE GLUCOSE NEGATIVE NEGATIVE 05/09/2020 1:35 PM CDT [facility] KETONES MG/DL (U) NEGATIVE NEGATIVE 05/09/2020 1:35 PM CDT [facility] UROBILINOGEN 0.2 <1.0 EU/DL 05/09/2020 1:35 PM CDT [facility] BILIRUBIN (U) NEGATIVE NEGATIVE 05/09/2020 1:35 PM CDT [facility] BLOOD (U) 2+(A) NEGATIVE 05/09/2020 1:35 PM CDT [facility] WBC/HPF 0-5 0 - 5 /HPF 05/09/2020 1:35 PM CDT [facility] RBC/HPF 5-10(A) 0 - 5 /HPF 05/09/2020 1:35 PM CDT [facility] EPI/HPF OCCASIONAL /LPF 05/09/2020 1:35 PM CDT [facility] BACTERIA (U) TRACE /HPF 05/09/2020 1:35 PM CDT [facility] URINE, STRAIGHT CATH 05/09/2020 1:20 PM CDT us Jessie Hidalgo III, MD URINE ORDERABLES Final R esult [facility] [address] [place] [address], documented in this encounter Visit Diagnoses Diagnosis Retention of urine, unspecified- Primary Neurogenic dysfunction of the urinary bladder Neurogenic bladder, NOS UTI (urinary tract infection) Urinary tract infection, site not specified documented in this encounter Care Teams Racing Car Driver Relationship Specialty Start Date End Date Ilan Pearson MD [address] [place] [address] PCP - General FAMILY PRACTICE 03/24/17 08/05/23 Jose Decker MD [address] [place] [address] [place] Printed Circuit Board Assembler CARDIOVASCULAR DISEASE 03/24/17 05/01/22 documented as of this encounter
--- OUTSIDE RECORDS SUMMARY | 2024-02-27 12:09 | XMS_ITS | Encounter Summary ---
Author Organization [facility] Address [address] [place] [address]. [place] [address] [place] [address] Care Team Providers Care Upper Cutter Machine Name Role Phone Ilan Pearson MD Primary Care Provider [phone] Jose Decker MD Unavailable Unavailab le Reason for Visit * Reason Comments Lab (SCAN) ECG (SCAN) Encounter Details Date Type Department Care Team (Late Contact Info) Description 01/16/[address] [facility] Information [facility] [address] [place] [address] Scanned, Doc Hospital Lab (SCAN); ECG (SCAN) [...] Coronavirus/COVID-19? No / Unsure 02/04/2022 2:42 PM BREWER HELPER documented as of this encounter Plan of Treatment Upcoming Encounters Date Type Department Care Team (Late Contact Info) Description 08/02/2024 10:[address] [facility] [address] [place] [address] Shorty Marks MD [address] [place], [place] [address] 08/02/2024 11:15 AM CDT Office Visit [facility] [place] [address] Shorty Marks MD [address] [place] [address] documented as of this encounter Procedures Procedure Name Priority Date/Time Associated Diagnosis Comments ECG GENERIC (SCAN ORDER) Routine 01/16/2022 12:00 AM BREWER HELPER OUTSIDE LAB (SCAN ORDER) Routine 01/16/2022 12:00 AM BREWER HELPER documented in this encounter Results * OUTSIDE LAB (SCAN) (01/16/2022 12:00 AM BREWER HELPER) 01/16/2022 [facility] Scanned SCANNING Final Resul t Performing Organization Address City/[facility]/ZIP Co de Phone Number [facility] ONBASE * ECG (01/16/2022 12:00 AM BREWER HELPER) 01/16/2022 us [facility] Scanned SCANNING Final Resul t HS ONBASE documented in this encounter Visit Diagnoses Not on filedocumented in this encounter Care Teams Upper Cutter Machine Relationship Specialty Start Date End Date Ilan Pearson MD [address] [place] [address] PCP - General FAMILY PRACTICE 03/24/17 08/05/23 Jose Decker MD [address] [place] [address] [place] Farmworker Animal CARDIOVASCULAR DISEASE 03/24/17 05/01/22 documented as of this encounter
--- OUTSIDE RECORDS SUMMARY | 2024-02-27 12:09 | XMS_ITS | Encounter Summary ---
Author Organization [facility] Address [address] [place] [address]. [place] [address] [place] [address] Care Team Providers Care Manager Document Control Name Role Phone Ilan Pearson MD Primary Care Provider [phone] Jose Decker MD Unavailable Unavailab le Encounter [...] COVID-19? No / Unsure 04/17/2020 11:04 AM HOT TOP LINER HELPER documented as of this encounter Plan of Treatment Upcoming Encounters Date Type Department Care Team (Late st Contact Info) Description 08/02/2024 10:00 AM CDT Appointment [facility] [address] [place] [address] Shorty Marks MD [address] [place], [place] [address] 08/02/2024 11:15 AM CDT Office Visit [facility] [address] [place] [phone] Shorty Marks MD [address] [place] [address] documented as of this encounter Visit Diagnoses Not on filedocumented in this encounter Care Teams Manager Document Control Relationship Specialty Start Date End Date Ilan Pearson MD [address] [place] [address] PCP - General FAMILY PRACTICE 03/24/17 08/05/23 Jose Decker MD [address] [place] [address] [place] Project Eng CARDIOVASCULAR DISEASE 03/24/17 05/01/22 documented as of this encounter
--- OUTSIDE RECORDS SUMMARY | 2024-02-27 12:09 | XMS_ITS | Encounter Summary ---
Author Organization [facility] Address [address] [place] [address]. [place] [address] [place] [address] Care Team Providers Care Community Service Aide Name Role Phone Ilan Pearson MD Primary Care Provider [phone] Jose Decker MD Unavailable Unavailab le Encounter Details Date Type Department Care Team (Latest Contact Info) Description 06/30/2020 11:43 AM CDT - 06/30/2020 11:59 PM CDT Hospital Encounter [facility] [address] [facility] [place] [address] Ilan Pearson MD [address] [place] [address] Discharge Disposition: Home or Self [...] Info) Description 08/02/2024 10:00 AM CDT Appointment [facility] [address] [place] [address] [place] [address] Shorty Marks MD [address] [place] [address] 08/02/2024 11:15 AM CDT Office Visit [facility] [address] [facility] [place] [address] Shorty Marks MD [address] [place] [phone] documented as of this encounter Procedures Procedure Name Priority Date/Time Associated Diagnosis Comments CORONAVIRUS (COVID 19) Routine 06/30/2020 11:50 AM CDT Preop examination documented in this encounter Results * PRE-SURGICAL/PRE-PROCEDURE CORONAVIRUS (COVID 19) (06/30/2020 11:50 AM CDT) SPEC DESCRIPTION NASOPHARYNGEAL SWAB 06/30/2020 11:50 AM CDT [facility] CORONAVIRUS SARS COV 2 PCR (RESP) NEGATIVE NEGATIVE 07/02/2020 7:56 PM CDT [facility] Comment: THE SARS-CoV-2 TEST HAS BEEN AUTHORIZED BY THE FDA UNDER AN EUA FOR USE BY AUTHORIZED LABORATORIES. PERFORMED BY NUCLEIC ACID AMPLIFICATION PCR FIRST TEST NO 06/30/2020 11:50 AM CDT [facility] EMPLOYED IN HEALTHCARE NO 06/30/2020 11:50 AM CDT [facility] SYMPTOMATIC DEFINED BY CDC NO 06/30/2020 11:50 AM CDT [facility] HOSPITALIZATION STATUS NO 06/30/2020 11:50 AM CDT [facility] PATIENT IN ICU NO 06/30/2020 11:50 AM CDT [facility] RESIDENT OF [facility] NO 06/30/2020 11:50 AM CDT [facility] NASOPHARYNGEAL SWAB / Unknown 06/30/2020 11:50 AM CDT us Ilan Pearson MD MICROBIOLOGY - GENERAL ORDERA BLES Final Result Performing Organization Address City/State/[facility] Co de Phone Number [facility] [address] [email or web address] [address], [facility] [address] [place] [address], documented in this encounter Visit Diagnoses Diagnosis Preop examination Preoperative examination, unspecified documented in this encounter Additional Health Concerns Infection Onset Date Last Indicated Resolved Time COVID-19 Rule Out 06/30/2020 06/30/2020 07/02/2020 7:56 PM CDT documented as of this encounter Care Teams Community Service Aide Relationship Specialty Start Date End Date Ilan Pearson MD [address] [place] [address] PCP - General FAMILY PRACTICE 03/24/17 08/05/23 Jose Decker MD [address] [place] [address] [place] Equipment Validation Specialist CARDIOVASCULAR DISEASE 03/24/17 05/01/22 documented as of this encounter
--- OUTSIDE RECORDS SUMMARY | 2024-02-27 12:09 | XMS_ITS | Encounter Summary ---
Author Organization [facility] Address [address] [place] [address]. [place] [address] [place] [address] Care Team Providers Care Adjunct English Instructor Name Role Phone Ilan Pearson MD Primary Care Provider [phone] Jose Decker MD Unavailable Unavailab le Encounter Details Date Type Department Care Team (Late st Contact Info) Description 08/27/[address] [facility] [address] [place] [address] Ilya Terrell MD [address] [address] [place], [place] [address] Social History Tobacco Use Types Packs/Day Years [...] CDT Appointment [facility] [address] [place] [address] Shorty Marks MD [address] [place] [address] 08/02/2024 11:15 AM CDT Office Visit [facility] [address] [place] [address] [place] [address] Shorty Marks MD [address] [place] [address] documented as of this encounter Results * PRE-SURGICAL/PRE-PROCEDURE CORONAVIRUS (COVID 19) (08/27/2021 10:59 AM CDT) SPEC DESCRIPTION NASAL 08/28/19 10:52 AM CDT [facility] CORONAVIRUS SARS COV 2 PCR (RESP) NEGATIVE NEGATIVE 08/27/2021 7:08 PM CDT [facility] Comment: THE SARS-CoV-2 TEST HAS BEEN AUTHORIZED BY THE FDA UNDER AN EUA FOR USE BY AUTHORIZED LABORATORIES. PERFORMED BY NUCLEIC ACID AMPLIFICATION PCR FIRST TEST NO 08/27/2021 10:52 AM CDT [facility] EMPLOYED IN HEALTHCARE NO 08/27/2021 10:52 AM CDT [facility] SYMPTOMATIC DEFINED BY CDC NO 08/27/2021 10:52 AM CDT [facility] HOSPITALIZATION STATUS NO 08/27/2021 10:52 AM CDT [facility] PATIENT IN ICU NO 08/27/2021 10:52 AM CDT [facility] RESIDENT OF [facility] CARE NO 08/27/2021 10:52 AM CDT [facility] NASAL STRUCTURE / Unknown 08/27/2021 10:59 AM CDT Ilya Terrell MD MICROBIOLOGY - GENERAL ORDERABLE S Final Result [facility] [address] [place] [address], [place] [phone] [facility] [address] [place], [place] [address] [phone] documented in this encounter Visit Diagnoses Diagnosis Encounter for screening for COVID-19- Primary documented in this encounter Additional Health Concerns Infection Onset Date Last Indicated Resolved Time COVID-19 Rule Out 08/27/2021 08/27/2021 08/27/2021 7:09 PM CDT documented as of this encounter Care Teams Adjunct English Instructor Relationship Specialty Start Date End Date Ilan Pearson MD [address] [place] [address] PCP - General FAMILY PRACTICE 03/24/17 08/05/23 Jose Decker MD [address] [place] [address] [place] Gas Inspector CARDIOVASCULAR DISEASE 03/24/17 05/01/22 documented as of this encounter
--- OUTSIDE RECORDS SUMMARY | 2024-02-27 12:09 | XMS_ITS | Encounter Summary ---
Author Organization [facility] Address [address] [place] [address]. [place] [address] [place] [address] Care Team Providers Care Neuropsychologist Name Role Phone Ilan Pearson MD Primary Care Provider [phone] Jose Decker MD Unavailable Unavailab le Encounter Details Date Type Department Care Team (Late st Contact Info) Description 04/08/2017 Abstract [facility] [address] [place] [address] Jose Decker MD Social History Tobacco Use [...] Appointment [facility] [address] [place] [address] Shorty Marks MD [address] [place] [address] 08/02/2024 11:15 AM CDT Office Visit [facility] [address] [place] [address] Shorty Marks MD [address] [place], [place] [phone] documented as of this encounter Visit Diagnoses Diagnosis Palpitations documented in this encounter Care Teams Neuropsychologist Relationship Specialty Start Date End Date Ilan Pearson MD [address] [place] [address] PCP - General FAMILY PRACTICE 03/24/17 08/05/23 Jose Decker MD [address] [place] [address] [place] Lead Solutions Architect CARDIOVASCULAR DISEASE 03/24/17 05/01/22 documented as of this encounter
--- OUTSIDE RECORDS SUMMARY | 2024-02-27 12:09 | XMS_ITS | Encounter Summary ---
Author Organization [facility] Address [address] [place] [address]. [place] [address] [place] [address] Care Team Providers Care Air Valve Repairer Name Role Phone Ilan Pearson MD Primary Care Provider Jose Decker MD Unavailable Unavailab le Encounter Details Date Type Department Care Team (Latest Contact Info) Description 04/10/2020 2:42 PM MAID HOUSEKEEPER - 04/10/2020 11:59 PM MAID HOUSEKEEPER Hospital Encounter [facility] [address] [facility] [address] [place] [address] [address] Discharge Disposition: Home or Self [...] COVID-19? Unable to assess 04/10/2020 2:48 PM MAID HOUSEKEEPER documented as of this encounter Medications at [...] Info) Description 08/02/2024 10:00 AM CDT Appointment [facility] [address] [place] [address] [place] [address] Shorty Marks MD [address] [place], [place] [phone] 08/02/2024 11:15 AM CDT Office Visit [facility] [place] [address] Shorty Marks MD [address] [place], [place] [address] documented as of this encounter Procedures Procedure Name Priority Date/Time Associated Diagnosis Comments BASIC METABOLIC PANEL Routine 04/10/2020 3:11 PM MAID HOUSEKEEPER Neurogenic dysfunction of the urinary bladder documented in this encounter Results * (ABNORMAL) BASIC METABOLIC PANEL (04/10/2020 3:11 PM MAID HOUSEKEEPER) SODIUM S/P/B 141 136 - 145 MMOL/L 04/10/2020 3:24 PM MAID HOUSEKEEPER [facility] POTASSIUM S/P/B 4.3 3.5 - 5.1 MMOL/L 04/10/2020 3:24 PM [facility] CHLORIDE S/P/B 103 98 - 107 MMOL/L 04/10/2020 3:24 PM [facility] CO2 27.1 21.0 - 32.0 MMOL/L 04/10/2020 3:24 PM [facility] GLUCOSE 112(H) 70 - 99 MG/DL 04/10/2020 3:24 PM [facility] Comment: FASTING GLUCOSE 100 TO 125 MG/DL IS CONSISTENT WITH IMPAIRED FASTING GLUCOSE. FASTING GLUCOSE >125 MG/DL IS CONSISTENT WITH DIABETES. RANDOM GLUCOSE >200 MG/DL WITH HYPERGLYCEMIC SYMPTOMS IS CONSISTENT WITH DIABETES. PER ADA GUIDELINES BUN 16 6 - 24 MG/DL 04/10/2020 3:24 PM MAID HOUSEKEEPER [facility] CREATININE S/P/B 0.79 0.70 - 1.30 MG/DL 04/10/2020 3:24 PM [facility] CALCIUM S/P/B 9.1 8.4 - 10.5 MG/DL 04/10/2020 3:24 PM [facility] ANION GAP 10.9 5.0 - 15.0 MMOL/L 04/10/2020 3:24 PM [facility] OSMOLALITY (CALC) 294 MOSM/KG 021 3:24 PM [facility] Comment:REFERENCE RANGE NOT ESTABLISHED EGFR NON-AFR. AMER. >90 >89 ML/MIN/1. 73 M2 04/10/2020 3:24 PM [facility] EGFR AFR. AMER. >90 >89 ML/MIN/1. 73 M2 04/10/2020 3:24 PM [facility] GFR NOTES GFR REFERENCE S: 04/10/2020 3:24 PM [facility] Comment: THE ESTIMATED GFR [...] FAILURE: <15 ml/min/1.73 m2 04/10/2020 3:11 PM MAID HOUSEKEEPER us Jessie Hidalgo III, MD LABORATORY Final Re sult [facility] [address] [place] [address], documented in this encounter Visit Diagnoses Diagnosis Neurogenic dysfunction of the urinary bladder Neurogenic bladder, NOS documented in this encounter Care Teams Air Valve Repairer Relationship Specialty Start Date End Date Ilan Pearson MD [address] [place] [address] PCP - General FAMILY PRACTICE 03/24/17 08/05/23 Jose Decker MD [address] [place] [address] [facility] Professor CARDIOVASCULAR DISEASE 03/24/17 05/01/22 documented as of this encounter
--- OUTSIDE RECORDS SUMMARY | 2024-02-27 12:09 | XMS_ITS | Encounter Summary ---
Author Organization [facility] Address [address] [place] [address]. [place] [address] [place] [address] Care Team Providers Care Sales Service Route Manager Name Role Phone Ilan Pearson MD Primary Care Provider [phone] Jose Decker MD Unavailable Unavailab le Reason for Referral * Imaging (Routine) - Closed Specialty Diagnoses / Procedures Referred By Contac t Referred To Contact RADIOLOGY Diagnoses Neurogenic dysfunction of the urinary bladder Procedures US BLADDER Martina Hidalgo III, MD Phone: tel: fax: Referral ID Status Reason Start Date Expiration Date Visits Re quested Visits Authorized [id number] Closed 04/10/2020 05/08/2021 1 1 RVISOR GARMENT MANUFACTURING Reason for Visit * Imaging (Routine) - Closed Specialty Diagnoses / Procedures Referred By Contac t Referred To Contact RADIOLOGY Diagnoses Neurogenic dysfunction of the urinary bladder Procedures US BLADDER Martina Hidalgo III, MD Phone: tel: fax: Referral ID Status Reason Start Date Expiration Date Visits Re quested Visits Authorized [id number] Closed 04/10/2020 05/08/2021 1 1 Encounter Details Date Type Department Care Team (Latest Contact Info) Description 04/17/2020 11:00 AM SUPERVISOR GARMENT MANUFACTURING - 04/17/2020 11:59 PM SUPERVISOR GARMENT MANUFACTURING Hospital Encounter [facility] [address] [place] [address] [place] [address] [place] [phone] Discharge Disposition: Home or Self Care (Routine [...] COVID-19? No / Unsure 04/17/2020 11:04 AM SUPERVISOR GARMENT MANUFACTURING documented as of this encounter Medications at [...] Info) Description 08/02/2024 10:00 AM CDT Appointment [facility] [address] [place] [address] Shorty Marks MD [address] [place], [place] [address] 08/02/2024 11:15 AM CDT Office Visit [facility] [address] [address] Shorty Marks MD [address] [place] [address] documented as of this encounter Procedures Procedure Name Priority Date/Time Associated Diagnosis Comments US BLADDER Routine 04/17/2020 11:30 AM SUPERVISOR GARMENT MANUFACTURING Neurogenic dysfunction of the urinary bladder documented in this encounter Results * US BLADDER (04/17/2020 11:30 AM SUPERVISOR GARMENT MANUFACTURING) Anatomical Region Laterality Modality Renal Ultrasound 04/17/2020 12:0 2 PM SUPERVISOR GARMENT MANUFACTURING Impressions 04/17/2020 12:06 PM SUPERVISOR GARMENT MANUFACTURING IMPRESSION: 1. Unremarkable sonographic appearance of the bladder. The bilateral ureteral jets are noted. 2. Bladder volumes as above. The post voiding residual volume measures greater than than the prevoiding volume. Referred By: MARTINA HIDALGO III Interpreted By: Rudolph Zacarias MD, 04/17/2020 12:02 PM Narrative 04/17/2020 12:06 PM SUPERVISOR GARMENT MANUFACTURING Examination: US BLADDER Exam time: 04/17/2020 11:30 [...] NOS documented in this encounter Care Teams Sales Service Route Manager Relationship Specialty Start Date End Date Ilan Pearson MD [address] [place] [address] PCP - General FAMILY PRACTICE 03/24/17 08/05/23 Jose Decker MD [address] [place] [address] [place] Auto Body Builder Apprentice CARDIOVASCULAR DISEASE 03/24/17 05/01/22 documented as of this encounter
--- OUTSIDE RECORDS SUMMARY | 2024-02-27 12:09 | XMS_ITS | Encounter Summary ---
Author Organization [facility] Address [address] [place] [address]. [place] [address] [place] [address] Care Team Providers Care Rug Cutter Helper Name Role Phone Ilan Pearson MD Primary Care Provider [phone] Jose Decker MD Unavailable Unavailab le Reason [...] Expiration Date Visits Re quested Visits Authorized [id number] Closed 05/08/2020 06/08/2021 1 1 Reason for Visit * Imaging (Routine) - Closed Specialty Diagnoses / Procedures Referred By Alton fermin Referred To Contact RADIOLOGY Diagnoses Neurogenic dysfunction of the urinary bladder Retention of urine UTI (urinary tract infection) Procedures US RETROPERITONEAL COMP Jessie Hidalgo III, MD Phone: tel: fax: Referral ID Status Reason Start Date Expiration Date Visits Re quested Visits Authorized [id number] Closed 05/08/2020 06/08/2021 1 1 Encounter Details Date Type Department Care Team (Latest Contact Info) Description 05/17/2020 1:29 PM CDT - 05/17/2020 11:59 PM CDT Hospital Encounter [facility] [address] [place] [address] [place] [address] [place] [address] Discharge Disposition: Home or Self [...] Info) Description 08/02/2024 10:00 AM CDT Appointment [facility] [address] [place] [address] Shorty Marks MD [address] [place] [address] 08/02/2024 11:15 AM CDT Office Visit [facility] [address] [place] [address] Shorty Marks MD [address] [place] [address] documented as of this encounter Procedures Procedure [...] specified documented in this encounter Care Teams Rug Cutter Helper Relationship Specialty Start Date End Date Ilan Pearson MD [address] [place] [address] PCP - General FAMILY PRACTICE 03/24/17 08/05/23 Jose Decker MD [address] [place] [address] [facility] Technician CARDIOVASCULAR DISEASE 03/24/17 05/01/22 documented as of this encounter
--- OUTSIDE RECORDS SUMMARY | 2024-02-27 12:09 | XMS_ITS | Encounter Summary ---
Author Organization [facility] Address [address] [place] [address]. [place] [address] [place] [address] Care Team Providers Care Helicopter Engineer Name Role Phone Ilan Pearson MD Primary Care Provider [phone] Jose Decker MD Unavailable Unavailab le Encounter Details Date Type Department Care Team (Latest Contact Info) Description 08/27/2021 10:40 AM CDT - 08/27/2021 11:59 PM CDT Hospital Encounter [facility] [address] [facility] [place] [address] Ilya Terrell MD [address] [address] [place] [address] Discharge Disposition: Home or Self Care (Routine [...] Info) Description 08/02/2024 10:00 AM CDT Appointment [address] [place] [address] Shorty Marks MD [address] [place], [place] [id number] [phone] 08/02/2024 11:15 AM CDT Office Visit [facility] [address] [place] [address] Shorty Marks MD [address] [place], [place] [address] [phone] documented as of this encounter Procedures Procedure Name Priority Date/Time Associated Diagnosis Comments CORONAVIRUS (COVID 19) Routine 08/27/2021 10:59 AM CDT Encounter for screening for COVID-19 documented in this encounter Results * PRE-SURGICAL/PRE-PROCEDURE CORONAVIRUS (COVID 19) (08/27/2021 10:59 AM CDT) SPEC DESCRIPTION NASAL 08/28/19 10:52 AM CDT [facility] CORONAVIRUS SARS COV 2 PCR (RESP) NEGATIVE NEGATIVE 08/27/2021 7:08 PM CDT [facility] Comment: THE SARS-CoV-2 TEST HAS BEEN AUTHORIZED BY THE FDA UNDER AN EUA FOR USE BY AUTHORIZED LABORATORIES. PERFORMED BY NUCLEIC ACID AMPLIFICATION PCR FIRST TEST NO 08/27/2021 10:52 AM CDT [facility] EMPLOYED IN HEALTHCARE NO 08/27/2021 10:52 AM CDT [facility] SYMPTOMATIC DEFINED BY CDC NO 08/27/2021 10:52 AM CDT [facility] HOSPITALIZATION STATUS NO 08/27/2021 10:52 AM CDT [facility] PATIENT IN ICU NO 08/27/2021 10:52 AM CDT [facility] RESIDENT OF [facility] C[facility] NO 08/27/2021 10:52 AM CDT [facility] NASAL STRUCTURE / Unknown 08/27/2021 10:59 AM CDT us Ilya Terrell MD MICROBIOLOGY - GENERAL ORDERABLE S Final Result [facility] [address] [place] [address], [facility] [address] [place] [id number], documented in this encounter Visit Diagnoses Diagnosis Encounter for screening for COVID-19 documented in this encounter Additional Health Concerns Infection Onset Date Last Indicated Resolved Time COVID-19 Rule Out 08/27/2021 08/27/2021 08/27/2021 7:09 PM CDT documented as of this encounter Care Teams Helicopter Engineer Relationship Specialty Start Date End Date Ilan Pearson MD [address] [place] [address] PCP - General FAMILY PRACTICE 03/24/17 08/05/23 Jose Decker MD [address] [place] [address] [place] Continuous Improvement Lead CARDIOVASCULAR DISEASE 03/24/17 05/01/22 documented as of this encounter
--- OUTSIDE RECORDS SUMMARY | 2024-02-27 12:09 | XMS_ITS | Encounter Summary ---
Author Organization [facility] Address [address] [place] [address]. [place] [address] [place] [address] Care Team Providers Care Patient Services Manager Name Role Phone Ilan Pearson MD Primary Care Provider [phone] Jose Decker MD Unavailable Unavailab le Encounter Details Date Type Department Care Team (Latest Contact Info) Description 08/02/2019 11:59 AM CDT - 08/02/2019 11:59 PM CDT Hospital Encounter [facility] [address] [facility] [address] [place] [address] [address] Discharge Disposition: Home or Self [...] Info) Description 08/02/2024 10:00 AM CDT Appointment [facility] [address] [place] [address] [place] [address] Shorty Marks MD [address] [place] [address] [phone] 08/02/2024 11:15 AM CDT Office Visit [facility] [place] [address] Shorty Marks MD [address] [place], [place] [address] [phone] documented as of this encounter Procedures Procedure [...] 6.45(H) <4.00 NG/ML 08/02/2019 12:[address] [facility] 08/02/2019 12:1 3 PM CDT us Jessie Hidalgo III, MD LABORATORY Final Re sult [facility] [address] [place] [address], * (ABNORMAL) BASIC METABOLIC PANEL (08/02/2019 12:13 PM CDT) SODIUM S/P/B 142 136 - 145 MMOL/L 08/02/2019 12:[address] [facility] POTASSIUM S/P/B 4.1 3.5 - 5.1 MMOL/L 08/02/2019 12:[address] [facility] CHLORIDE S/P/B 105 98 - 107 MMOL/L 08/02/2019 12:[address] [facility] CO2 28.5 21.0 - 32.0 MMOL/L 08/02/2019 12:[address] [facility] GLUCOSE 92 70 - 99 MG/DL 08/02/2019 12:[address] [facility] Comment: FASTING GLUCOSE 100 TO 125 MG/DL IS CONSISTENT WITH IMPAIRED FASTING GLUCOSE. FASTING GLUCOSE >125 MG/DL IS CONSISTENT WITH DIABETES. RANDOM GLUCOSE >200 MG/DL WITH HYPERGLYCEMIC SYMPTOMS IS CONSISTENT WITH DIABETES. PER ADA GUIDELINES BUN 13 6 - 24 MG/DL 08/02/2019 12:[address] [facility] CREATININE S/P/B 0.65(L) 0.70 - 1.30 MG/DL 08/02/2019 12:[address] [facility] CALCIUM S/P/B 9.7 8.4 - 10.5 MG/DL 08/02/2019 12:[address] [facility] ANION GAP 8.5 5.0 - 15.0 MMOL/L 08/02/2019 12:[address] [facility] OSMOLALITY (CALC) 294 MOSM/KG 020 12:[address] [facility] Comment:REFERENCE RANGE NOT ESTABLISHED EGFR NON-AFR. AMER. >90 >89 ML/MIN/1. 73 M2 08/02/2019 12:[address] [facility] EGFR AFR. AMER. >90 >89 ML/MIN/1. 73 M2 08/02/2019 12:[address] [facility] GFR NOTES GFR REFERENCE S: 08/02/2019 12:[address] [facility] Comment: THE ESTIMATED GFR IS [...] Hidalgo III, MD LABORATORY Final Re sult [facility] [address] [place] [address], documented in this encounter Visit Diagnoses Diagnosis Neurogenic dysfunction of the urinary bladder Neurogenic bladder, NOS BPH with obstruction/lower urinary tract symptoms Hypertrophy of prostate with urinary obstruction and other lower urinary tract symptoms (LUTS) documented in this encounter Care Teams Patient Services Manager Relationship Specialty Start Date End Date Ilan Pearson MD [address] [place] [address] PCP - General FAMILY PRACTICE 03/24/17 08/05/23 Jose Decker MD [address] [place] [address] [place] Clicking Machine Operator CARDIOVASCULAR DISEASE 03/24/17 05/01/22 documented as of this encounter
--- OUTSIDE RECORDS SUMMARY | 2024-02-27 12:09 | XMS_ITS | Encounter Summary ---
Author Organization [facility] Address [address] [place] [address]. [place] [address] [place] [address] Care Team Providers Care Supervisor Wood Room Name Role Phone Barak Mckeon MD Primary Care Provider Jose Decker MD Unavailable Unavailab le Reason for Visit * Reason Comments Follow Up Encounter Details Date Type Department Care Team (Late st Contact Info) Description 05/11/2017 12:40 PM CDT Office Visit [facility] AT [address] [place] [address] Jose Decker MD Follow Up Social History [...] Info) Description 08/02/2024 10:00 AM CDT Appointment [facility] [address] [place] [address] [place] [address] Shorty Marks MD [address] [place] [address] 08/02/2024 11:15 AM CDT Office Visit [facility] [address] [place] [address] Shorty Marks MD [address] [place], [place] [address] documented as of this encounter Visit Diagnoses Diagnosis Heart palpitations- Primary Palpitations documented in this encounter Care Teams Supervisor Wood Room Relationship Specialty Start Date End Date Barak Mckeon MD [address] [place] [address] PCP - General FAMILY PRACTICE 03/24/17 08/05/23 Jose Decker MD [address] [place] [address] [place] Manager Photography CARDIOVASCULAR DISEASE 03/24/17 05/01/22 documented as of this encounter
--- OUTSIDE RECORDS SUMMARY | 2024-02-27 12:09 | XMS_ITS | Encounter Summary ---
Author Organization [facility] Address [address] [place] [address]. [place] [address] [place] [address] Care Team Providers Care Tractor Technician Name Role Phone Barak Mckeon MD Primary Care Provider [phone] Jose Decker MD Unavailable Unavailab le Reason for Visit * Reason Comments Consult Encounter Details Date Type Department Care Team (Late st Contact Info) Description 04/08/2017 11:20 AM CANE PACKER Office Visit [facility] AT [address] [place] [address] Jose Decker MD Consult Social History Tobacco [...] Comments Blood Pressure 149/80 04/08/2017 10:40 AM CANE PACKER Pulse 81 04/08/2017 10:40 AM CANE PACKER Temperature - - Respiratory Rate 20 04/08/2017 10:40 AM CANE PACKER Oxygen Saturation 99% 04/08/2017 10:40 AM CANE PACKER Inhaled Oxygen Concentration - - Weight 92.5 kg (204 lb) 04/08/2017 10:40 AM CANE PACKER Height 182.9 cm (6') 04/08/2017 10:40 AM CANE PACKER Body Mass Index 27.67 04/08/2017 10:40 AM CANE PACKER documented in this encounter Progress Notes * [...] Info) Description 08/02/2024 10:00 AM CDT Appointment [facility] [address] [place] [address] Shorty Marks MD [address] [place], [place] [address] 08/02/2024 11:15 AM CDT Office Visit [facility] [address] [facility] [place] [place] [address] Shorty Marks MD [address] [place], [place] [address] documented as of this encounter Visit Diagnoses Diagnosis Heart palpitations- Primary Palpitations documented in this encounter Care Teams Tractor Technician Relationship Specialty Start Date End Date Barak Mckeon MD [address] [place] [address] PCP - General FAMILY PRACTICE 03/24/17 08/05/23 Jose Decker MD [address] [place] [address] [employer] Machine Operator CARDIOVASCULAR DISEASE 03/24/17 05/01/22 documented as of this encounter
--- OUTSIDE RECORDS SUMMARY | 2024-02-27 12:09 | XMS_ITS | Encounter Summary ---
Author Organization [facility] Address [address] [place] [address]. [place] [address] [place] [address] Care Team Providers Care Plasma Center Nurse Name Role Phone lIan Pearson MD Primary Care Provider [phone] Jose Decker MD Unavailable Unavailab le Reason for Visit * Reason Comments ECG (SCAN) Encounter Details Date Type Department Care Team (Late st Contact Info) Description 04/06/2017 Scan [facility] [address] [place] [address] Scanned, Documents ECG (SCAN) Social [...] Appointment [facility] [address] [place] [address] Shorty Marks MD [address] [place], [place] [address] 08/02/2024 11:15 AM CDT Office Visit [facility] [address] [place] [address] Shorty Marks MD [address] [place] [address] documented as of this encounter Procedures Procedure Name Priority Date/Time Associated Diagnosis Comments ECG GENERIC (SCAN ORDER) Routine 02/23/2017 STRESS TEST (SCAN ORDER) Routine 09/25/2016 documented in this encounter Results * ECG (02/23/2017) us Documents Scanned SCANNING Final Result * STRESS TEST (09/25/2016) us Documents Scanned SCANNING Final Result documented in this encounter Visit Diagnoses Not on filedocumented in this encounter Care Teams Plasma Center Nurse Relationship Specialty Start Date End Date Ilan Pearson MD [address] [place] [address] PCP - General FAMILY PRACTICE 03/24/17 08/05/23 Jose Decker MD [address] [place] [address] [place] [employer]wind Instrument Repairer CARDIOVASCULAR DISEASE 03/24/17 05/01/22 documented as of this encounter
--- OUTSIDE RECORDS SUMMARY | 2024-02-27 12:09 | XMS_ITS | Encounter Summary ---
Author Organization [facility] Address [address] [place] [address]. [place] [address] [place] [address] Care Team Providers Care Teacher Assistant Name Role Phone Ilan Pearson MD Primary Care Provider [phone] Jose Decker MD Unavailable Unavailab le Encounter Details Date Type Department Care Team (Late st Contact Info) Description 04/10/2017 Orders Only [facility] [address] [place] [address] Jose Decker MD Social History [...] Appointment [facility] [address] [place] [address] Shorty Marks MD [address] [place], [place] [address] 08/02/2024 11:15 AM CDT Office Visit [facility] [address] [place] [address] Shorty Marks MD [address] [place] [address] Scheduled Orders Name Type Priority Associated Diagnoses Orde r Schedule Cardiac event monitor Cardiac Services Routine Palpitations Expected: 04/10/2017, Expires: 04/10/2018 documented as of this encounter Visit Diagnoses Diagnosis Palpitations- Primary documented in this encounter Care Teams Teacher Assistant Relationship Specialty Start Date End Date Ilan Pearson MD [address] [place] [address] PCP - General FAMILY PRACTICE 03/24/17 08/05/23 Jose Decker MD [address] [place] [address] [employer] Business Development CARDIOVASCULAR DISEASE 03/24/17 05/01/22 documented as of this encounter
--- OUTSIDE RECORDS SUMMARY | 2024-02-27 12:09 | XMS_ITS | Encounter Summary ---
Author Organization [facility] Address [address] [place] [address]. [place] [address] [place] [address] Care Team Providers Care Diet Tech Name Role Phone Ilan Pearson MD Primary Care Provider [phone] Jose Decker MD Unavailable Unavailab le Encounter Details Date Type Department Care Team (Late st Contact Info) Description 04/10/[address] [facility] [address] [place] [address] [place] [address] [place] [address] Social History Tobacco Use Types Packs/Day [...] COVID-19? Unable to assess 04/10/2020 2:48 PM MUSIC WORKER documented as of this encounter Plan of Treatment Upcoming Encounters Date Type Department Care Team (Late st Contact Info) Description 08/02/2024 10:[address] [facility] [address] [place] [address] Shorty Marks MD [address] [place] [address] 08/02/2024 11:15 AM CDT Office Visit [facility] [place] [address] Shorty Marks MD [address] [place] [address] documented as of this encounter Results * (ABNORMAL) BASIC METABOLIC PANEL (04/10/2020 3:11 PM MUSIC WORKER) [facility] SODIUM S/P/B 141 136 - 145 MMOL/L 04/10/2020 3:24 PM [facility] POTASSIUM S/P/B 4.3 3.5 - 5.1 MMOL/L 04/10/2020 3:24 PM [facility] CHLORIDE S/P/B 103 98 - 107 MMOL/L 04/10/2020 3:24 PM [facility] CO2 27.1 21.0 - 32.0 MMOL/L 04/10/2020 3:24 PM [facility] GLUCOSE 112(H) 70 - 99 MG/DL 04/10/2020 3:24 PM [facility] Comment: FASTING GLUCOSE 100 TO 125 MG/DL IS CONSISTENT WITH IMPAIRED FASTING GLUCOSE. FASTING GLUCOSE >125 MG/DL IS CONSISTENT WITH DIABETES. RANDOM GLUCOSE >200 MG/DL WITH HYPERGLYCEMIC SYMPTOMS IS CONSISTENT WITH DIABETES. PER ADA GUIDELINES BUN 16 6 - 24 MG/DL 04/10/2020 3:24 PM [facility] CREATININE S/P/B 0.79 0.70 - 1.30 MG/DL 04/10/2020 3:24 PM [facility] CALCIUM S/P/B 9.1 8.4 - 10.5 MG/DL 04/10/2020 3:24 PM [facility] ANION GAP 10.9 5.0 - 15.0 MMOL/L 04/10/2020 3:24 PM [facility] OSMOLALITY (CALC) 294 MOSM/KG 021 3:24 PM [facility] Comment:REFERENCE RANGE NOT ESTABLISHED EGFR NON-AFR. AMER. >90 >89 ML/MIN/1. 73 M2 04/10/2020 3:24 PM MUSIC WORKER [facility] EGFR AFR. AMER. >90 >89 ML/MIN/1. 73 M2 04/10/2020 3:24 PM MUSIC WORKER [facility] GFR NOTES GFR REFERENCE S: 04/10/2020 3:24 PM MUSIC WORK[facility] Comment: THE ESTIMATED GFR IS [...] FAILURE: <15 ml/min/1.73 m2 04/10/2020 3:11 PM MUSIC WORKER us Jessie Hidalgo III, MD LABORATORY Final Re sult [facility] [address] [place] [address], documented in this encounter Visit Diagnoses Diagnosis Neurogenic dysfunction of the urinary bladder- Primary Neurogenic bladder, NOS documented in this encounter Care Teams Diet Tech Relationship Specialty Start Date End Date Ilan Pearson MD [address] [place] [address] PCP - General FAMILY PRACTICE 03/24/17 08/05/23 Jose Decker MD [address] [place] [address] [place] Consultant Dietitian CARDIOVASCULAR DISEASE 03/24/17 05/01/22 documented as of this encounter
--- OUTSIDE RECORDS SUMMARY | 2024-02-27 12:09 | XMS_ITS | Encounter Summary ---
Author Organization [facility] Address [address] [place] [address]. [place] [address] [place] [address] Care Team Providers Care Bark Grinder Name Role Phone Ilan Pearson MD Primary Care Provider [phone] Jose Decker MD Unavailable Unavailab le Encounter [...] COVID-19? Unable to assess 04/10/2020 2:48 PM ARSON INVESTIGATOR documented as of this encounter Plan of Treatment Upcoming Encounters Date Type Department Care Team (Late st Contact Info) Description 08/02/2024 10:00 AM CDT Appointment [facility] [address] [place] [address] Shorty Marks MD [address] [place] [address] 08/02/2024 11:15 AM CDT Office Visit [facility] [address] [place] [address] Shorty Marks MD [address] [place] [address] documented as of this encounter Visit Diagnoses Not on filedocumented in this encounter Care Teams Bark Grinder Relationship Specialty Start Date End Date Ilan Pearson MD [address] [place] [address] PCP - General FAMILY PRACTICE 03/24/17 08/05/23 Jose Decker MD [address] [place] [address] [place] Recruitment Coordinator CARDIOVASCULAR DISEASE 03/24/17 05/01/22 documented as of this encounter
--- OUTSIDE RECORDS SUMMARY | 2024-02-27 12:09 | XMS_ITS | Encounter Summary ---
Author Organization [facility] Address [address] [place] [address]. [place], [place] [address] [place] [address] Care Team Providers Care Supervisor Cutting And Sewing Room Name Role Phone Ilan Pearson MD Primary Care Provider [phone] Jose Decker MD Unavailable Unavailab le Reason for Visit * Reason Onset Date Comments Other 06/26/2017 Encounter Details Date Type Department Care Team (Late st Contact Info) Description 06/26/2017 Telephone [facility] [address] [place] [address] Jose Decker MD Other Social [...] and did not hear back. Please call [phone] documented in this encounter Plan of Treatment Upcoming Encounters Date Type Department Care Team (Late st Contact Info) Description 08/02/2024 10:00 AM CDT Appointment [facility] [address] [place] [address] Shorty Marks MD [address] [place], [place] [address] 08/02/2024 11:15 AM CDT Office Visit [facility] [facility] [address] [place] [address] Shorty Marks MD [address] [place], [place] [address] documented as of this encounter Visit Diagnoses Not on filedocumented in this encounter Care Teams Supervisor Cutting And Sewing Room Relationship Specialty Start Date End Date Ilan Pearson MD [address] [place] [address] PCP - General FAMILY PRACTICE 03/24/17 08/05/23 Jose Decker MD [address] [place] [address] [place] Blog Writer CARDIOVASCULAR DISEASE 03/24/17 05/01/22 documented as of this encounter
--- OUTSIDE RECORDS SUMMARY | 2024-02-27 12:09 | XMS_ITS | Encounter Summary ---
Author Organization [facility] Address [address] [place] [address]. [place] [address] [place] [address] Care Team Providers Care Fry Cook Name Role Phone Ilan Pearson MD Primary Care Provider [phone] Jose Decker MD Unavailable Unavailab le Encounter [...] Coronavirus/COVID-19? No / Unsure 02/04/2022 2:42 PM CROWN IRONER documented as of this encounter Plan of Treatment Upcoming Encounters Date Type Department Care Team (Late st Contact Info) Description 08/02/2024 10:00 AM CDT Appointment [facility] [address] [place] [address] Shorty Marks MD [address] [place], [place] [address] 08/02/2024 11:15 AM CDT Office Visit [facility] [address] [place] [address] Shorty Marks MD [address] [place] [address] documented as of this encounter Visit Diagnoses Not on filedocumented in this encounter Care Teams Fry Cook Relationship Specialty Start Date End Date Ilan Pearson MD [address] [place], [place] [address] PCP - General FAMILY PRACTICE 03/24/17 08/05/23 Jose Decker MD [address] [place] [address] [place] Learning Support Assistant CARDIOVASCULAR DISEASE 03/24/17 05/01/22 documented as of this encounter
--- OUTSIDE RECORDS SUMMARY | 2024-02-27 12:09 | XMS_ITS | Encounter Summary ---
Author Organization [facility] Address [address] [place] [address]. [place] [address] [place] [address] Care Team Providers Care Wired Music Operator Name Role Phone Ilan Pearson MD Primary Care Provider [phone] Jose Decker MD Unavailable Unavailab le Reason for Referral * Imaging (Routine) - Closed Specialty Diagnoses / Procedures Referred By Contac t Referred To Contact RADIOLOGY Diagnoses Kidney stone Procedures CT ABD WO Martina Cole III, MD Phone: tel: fax: Referral ID Status Reason Start Date Expiration Date Visits Re quested Visits Authorized [id number] Closed 06/19/2020 07/20/2021 1 1 Reason for Visit * Imaging (Routine) - Closed Specialty Diagnoses / Procedures Referred By Contac t Referred To Contact RADIOLOGY Diagnoses Kidney stone Procedures CT ABD WO Martina Cole III, MD Phone: tel: fax: Referral ID Status Reason Start Date Expiration Date Visits Re quested Visits Authorized [id number] Closed 06/19/2020 07/20/2021 1 1 Encounter Details Date Type Department Care Team (Latest Contact Info) Description 06/26/2020 11:00 AM CDT - 06/26/2020 11:59 PM CDT Hospital En[facility] [address] [place] [address] [place] [address] [place] [phone] Discharge Disposition: Home or Self Care (Routine [...] Info) Description 08/02/2024 10:00 AM CDT Appointment [facility] [address] [place] [address] Shorty Marks MD [address] [place], [place] [address] 08/02/2024 11:15 AM CDT Office Visit [facility] [address] [address] Shorty Marks MD [address] [place], [place] [address] documented as of this encounter Procedures Procedure [...] kidney documented in this encounter Care Teams Wired Music Operator Relationship Specialty Start Date End Date Ilan Pearson MD [address] [place] [address] PCP - General FAMILY PRACTICE 03/24/17 08/05/23 Jose Decker MD [address] [place] [address] [place] Materials Mgmt Tech CARDIOVASCULAR DISEASE 03/24/17 05/01/22 documented as of this encounter
--- OUTSIDE RECORDS SUMMARY | 2024-02-27 12:09 | XMS_ITS | Encounter Summary ---
Author Organization [facility] Address [address] [place] [address]. [place] [address] [place] [address] Care Team Providers Care Siding Coreboard Inspector Name Role Phone Ilan Pearson MD Primary Care Provider [phone] Jose Decker MD Unavailable Unavailab le Encounter Details Date Type Department Care Team (Latest Contact Info) Description 04/06/2020 12:35 PM CUTTER OPERATOR - 04/06/2020 11:59 PM CUTTER OPERATOR Hospital Encounter [facility] [address] [facility] [place] [place] [address] [place] [address] [address] Discharge Disposition: Home or Self [...] COVID-19? No / Unsure 04/06/2020 12:36 PM CUTTER OPERATOR documented as of this encounter Medications at [...] Description 08/02/2024 10:[address] [facility] [address] [facility] [place] [address] Shorty Marks MD [address] [place], [place] [address] 08/02/2024 11:15 AM CDT Office Visit [facility] [place] [address] Shorty Marks MD [address] [place] [phone] documented as of this encounter Procedures Procedure Name Priority Date/Time Associated Diagnosis Comments PROSTATE SPECIFIC ANTIGEN,SCREENING Routine 04/06/2020 12:46 PM CUTTER OPERATOR Screening for prostate cancer documented in this encounter Results * (ABNORMAL) PROSTATE SPECIFIC ANTIGEN,SCREENING (04/06/2020 12:46 PM CUTTER OPERATOR) PSA 4.68(H) <4.00 NG/ML 04/06/2020 1:21 PM CUTTER OPERATOR [facility] 04/06/2020 12:4 6 PM CUTTER OPERATOR us Jessie Hidalgo III, MD LABORATORY Final Re sult [facility] [address] [place] [address], documented in this encounter Visit Diagnoses Diagnosis Screening for prostate cancer Special screening for malignant neoplasm of prostate documented in this encounter Care Teams Siding Coreboard Inspector Relationship Specialty Start Date End Date Ilan Pearson MD [address] [place] [address] PCP - General FAMILY PRACTICE 03/24/17 08/05/23 Jose Decker MD [address] [place] [address] Holder Freelance Digital Project Manager CARDIOVASCULAR DISEASE 03/24/17 05/01/22 documented as of this encounter
--- OUTSIDE RECORDS SUMMARY | 2024-02-27 12:09 | XMS_ITS | Encounter Summary ---
Author Organization [facility] Address [address] [place] [address]. [place] [address] [place] [address] Care Team Providers Care Lacquer Coater Name Role Phone Ilan Pearson MD Primary [...] Info) Description 08/02/2024 10:00 AM CDT Appointment [facility] [address] [place] [address] Shorty Marks MD [address] [place], [place] [address] 08/02/2024 11:15 AM CDT Office Visit [facility] [address] [place] [phone] Shorty Marks MD [address] [place] [address] documented as of this encounter Visit Diagnoses Not on filedocumented in this encounter Care Teams Lacquer Coater Relationship Specialty Start Date End Date Ilan Pearson MD [address] [place] [address] PCP - General FAMILY PRACTICE 03/24/17 08/05/23 Jose Decker MD [address] [place] [address] Markle Production Broacher CARDIOVASCULAR DISEASE 03/24/17 05/01/22 documented as of this encounter
--- OUTSIDE RECORDS SUMMARY | 2024-02-27 12:09 | XMS_ITS | Encounter Summary ---
Author Organization [facility] Address [address] [place] [address]. [place] [address] [place] [address] Care Team Providers Care Manager Loan Name Role Phone Ilan Pearson MD Primary Care Provider [phone] Jose Decker MD Unavailable Unavailab le Reason for Visit * Reason Comments Lab (SCAN) Encounter Details Date Type Department Care Team (Late st Contact Info) Description 01/16/2022 Scan [facility] [employer] [facility] [address] [place] [address] Scanned, Doc Hospital Lab (SCAN) Social History [...] Coronavirus/COVID-19? No / Unsure 02/04/2022 2:42 PM SENIOR C SOFTWARE ENGINEER documented as of this encounter Plan of Treatment Upcoming Encounters Date Type Department Care Team (Late st Contact Info) Description 08/02/2024 10:[address] [place] [address] Shorty Marks MD [address] [place] [address] 08/02/2024 11:15 AM CDT Office Visit [facility] [place] [address] Shorty Marks MD [address] [place] [address] documented as of this encounter Procedures Procedure Name Priority Date/Time Associated Diagnosis Comments OUTSIDE LAB (SCAN ORDER) Routine 01/16/2022 12:00 AM SENIOR C SOFTWARE ENGINEER documented in this encounter Results * OUTSIDE LAB (SCAN) (01/16/2022 12:00 AM SENIOR C SOFTWARE ENGINEER) 01/16/2022 us Doc Hospital Scanned SCANNING Final Resul t [facility] ON[facility] documented in this encounter Visit Diagnoses Not on filedocumented in this encounter Care Teams Manager Loan Relationship Specialty Start Date End Date Ilan Pearson MD [address] [place] [address] PCP - General FAMILY PRACTICE 03/24/17 08/05/23 Jose Decker MD [address] [place] [address] [place] Writer Producer CARDIOVASCULAR DISEASE 03/24/17 05/01/22 documented as of this encounter
--- OUTSIDE RECORDS SUMMARY | 2024-02-27 12:09 | XMS_ITS | Encounter Summary ---
Author Organization [facility] Address [address] [place] [address]. [place] [address] [place] [address] Care Team Providers Care Supplier Quality Engineer Name Role Phone Ilan Pearson MD Primary Care Provider [phone] Jose Decker MD Unavailable Unavailab le Encounter [...] Info) Description 08/02/2024 10:00 AM CDT Appointment [facility] [address] [place] [address] Shorty Marks MD [address] [place] [address] 08/02/2024 11:15 AM CDT Office Visit [facility] [address] [place] [address] Shorty Marks MD [address] [place] [address] documented as of this encounter Visit Diagnoses Not on filedocumented in this encounter Care Teams Supplier Quality Engineer Relationship Specialty Start Date End Date Ilan Pearson MD [address] [place] [address] PCP - General FAMILY PRACTICE 03/24/17 08/05/23 Jose Decker MD [address] [place] [address] [place] [employer] CARDIOVASCULAR DISEASE 03/24/17 05/01/22 documented as of this encounter
--- OUTSIDE RECORDS SUMMARY | 2024-02-27 12:09 | XMS_ITS | Encounter Summary ---
Author Organization [facility] Address [address] [place] [address]. [place] [address] [place] [address] Care Team Providers Care Hide Cooking Operator Name Role Phone Ilan Pearson MD Primary Care Provider [phone] Jose Decker MD Unavailable Unavailab le Encounter Details Date Type Department Care Team (Latest Contact Info) Description 10/08/2021 10:30 AM CDT - 10/08/2021 11:59 PM CDT Hospital Encounter [facility] [address] [facility] [place] [address] Ilya Terrell MD [address] [address] [place] [address] Discharge Disposition: Home or Self Care (Routine [...] 10:[address] [facility] [place] [address] Shorty Marks MD [address] [place] [address] 08/02/2024 11:15 AM CDT Office Visit [facility] [address] [place] [address] Shorty Marks MD [address] [place] [address] documented as of this encounter Procedures Procedure Name Priority Date/Time Associated Diagnosis Comments CORONAVIRUS (COVID 19) Routine 10/08/2021 10:43 AM CDT Encounter for screening for COVID-19 documented in this encounter Results * (ABNORMAL) PRE-SURGICAL/PRE-PROCEDURE CORONAVIRUS (COVID 19) (10/08/2021 10:43 AM CDT) SPEC DESCRIPTION NASAL 10/09/19 10:42 AM CDT [facility] CORONAVIRUS SARS COV 2 PCR (RESP) POSITIVE( AA) NEGATIVE 10/08/2021 9:12 PM CDT [facility] Comment: THE SARS-CoV-2 TEST HAS BEEN AUTHORIZED BY THE FDA UNDER AN EUA FOR USE BY AUTHORIZED LABORATORIES. PERFORMED BY NUCLEIC ACID AMPLIFICATION PCR CALLED TO VAMSHI 10/09/2021 0745 R and V FIRST TEST NO 10/08/2021 10:42 AM CDT [facility] EMPLOYED IN HEALTHCARE NO 10/08/2021 10:42 AM CDT [facility] SYMPTOMATIC DEFINED BY CDC NO 10/08/2021 10:42 AM CDT [facility] HOSPITALIZATION STATUS NO 10/08/2021 10:42 AM CDT [facility] PATIENT IN ICU NO 10/08/2021 10:42 AM CDT [facility] RESIDENT OF [facility] NO 10/08/2021 10:42 AM CDT [facility] NASAL STRUCTURE / Unknown 10/08/2021 10:43 AM CDT Ilya Terrell MD MICROBIOLOGY - GENERAL ORDERABLE S Final Result [facility] [address] [place] [address], documented in this encounter Visit Diagnoses Diagnosis Encounter for screening for COVID-19 documented in this encounter Additional Health Concerns Infection Onset Date Last Indicated Resolved Time COVID-19 Rule Out 10/08/2021 10/08/2021 10/08/2021 9:12 PM CDT COVID-19 Confirmed 10/08/2021 10/08/2021 12:34 AM CDT documented as of this encounter Care Teams Hide Cooking Operator Relationship Specialty Start Date End Date Ilan Pearson MD [address] [place] [address] PCP - General FAMILY PRACTICE 03/24/17 08/05/23 Jose Decker MD [address] [place] [phone] [place] Motor And Generator Brush Maker CARDIOVASCULAR DISEASE 03/24/17 05/01/22 documented as of this encounter
--- OUTSIDE RECORDS SUMMARY | 2024-02-27 12:09 | XMS_ITS | Encounter Summary ---
Author Organization [facility] Address [address] [place] [address]. [place] [address] [place] [address] Care Team Providers Care Director Cloud Transformation Name Role Phone Ilan Pearson MD Primary Care Provider [phone] Jose Decker MD Unavailable Unavailab le Encounter Details Date Type Department Care Team (Late st Contact Info) Description 03/25/2017 Scan [facility] [address] [place] [address] Scanned, Documents Social History Tobacco [...] Appointment [facility] [address] [place] [address] Shorty Marks MD [address] [place], [place] [address] 08/02/2024 11:15 AM CDT [facility] [address] [place] [address] Shorty Marks MD [address] [place], [place] [address] documented as of this encounter Visit Diagnoses Not on filedocumented in this encounter Care Teams Director Cloud Transformation Relationship Specialty Start Date End Date Ilan Pearson MD [address] [place] [address] PCP - General FAMILY PRACTICE 03/24/17 08/05/23 Jose Decker MD [address] [place] [address] [facility] Application Specialist CARDIOVASCULAR DISEASE 03/24/17 05/01/22 documented as of this encounter
--- OUTSIDE RECORDS SUMMARY | 2024-02-27 12:09 | XMS_ITS | Encounter Summary ---
Author Organization [facility] Address [address] [place] [address]. [place] [address] [place] [address] Care Team Providers Care Shirt Hemmer Name Role Phone Ilan Pearson MD Primary Care Provider [phone] Jose Decker MD Unavailable Unavailab le Encounter [...] Info) Description 08/02/2024 10:00 AM CDT Appointment [facility] [address] [place] [address] Shorty Marks MD [address] [place], [place] [address] 08/02/2024 11:15 AM CDT Office Visit [facility] [address] [place] [address] Shorty Marks MD [address] [place] [address] documented as of this encounter Visit Diagnoses Not on filedocumented in this encounter Care Teams Shirt Hemmer Relationship Specialty Start Date End Date Ilan Pearson MD [address] [place] [address] PCP - General FAMILY PRACTICE 03/24/17 08/05/23 oJse Decker MD [address] [place] [address] [place] Medical Billing Coordinator CARDIOVASCULAR DISEASE 03/24/17 05/01/22 documented as of this encounter
--- OUTSIDE RECORDS SUMMARY | 2024-02-27 12:09 | XMS_ITS | Encounter Summary ---
Author Organization [facility] Address [address] [place] [address]. [place] [address] [place] [address] Care Team Providers Care Trainer Name Role Phone Ilan Pearson MD Primary Care Provider [phone] Jose Decker MD Unavailable Unavailab le Encounter [...] Info) Description 08/02/2024 10:00 AM CDT Appointment [facility] [address] [place] [address] Shorty Marks MD [address] [place], [place] [address] 08/02/2024 11:15 AM CDT Office Visit [facility] [address] [place] [address] Shorty Marks MD [address] [place] [address] documented as of this encounter Visit Diagnoses Not on filedocumented in this encounter Additional Health Concerns Infection Onset Date Last Indicated Resolved Time COVID-19 Rule Out 06/30/2020 06/30/2020 07/02/2020 7:56 PM CDT documented as of this encounter Care Teams Trainer Relationship Specialty Start Date End Date Ilan Pearson MD [address] [place] [address] PCP - General FAMILY PRACTICE 03/24/17 08/05/23 Jose Decker MD [address] [place] [address] [employer] Equipment Field Service Technician CARDIOVASCULAR DISEASE 03/24/17 05/01/22 documented as of this encounter
--- OUTSIDE RECORDS SUMMARY | 2024-02-27 12:09 | XMS_ITS | Encounter Summary ---
Author Organization [facility] Address [address] [place] [address]. [place] [address] [place] [address] Care Team Providers Care Meter Inspector Name Role Phone Ilan Pearson MD Primary Care Provider [phone] Jose Decker MD Unavailable Unavailab le Reason for Referral * Imaging (Routine) - Closed Specialty Diagnoses / Procedures Referred By Contac t Referred To Contact RADIOLOGY Diagnoses Dysfunction, bladder Procedures US RETROPERITONEAL COMP US RETROPERITONEAL LTD Jessie Hidalgo III, MD Phone: tel: fax: Referral ID Status Reason Start Date Expiration Date Visits Re quested Visits Authorized [id number] Closed 08/02/2019 09/01/2020 1 1 Reason for Visit * Imaging (Routine) - Closed Specialty Diagnoses / Procedures Referred By Contac t Referred To Contact RADIOLOGY Diagnoses Dysfunction, bladder Procedures US RETROPERITONEAL COMP US RETROPERITONEAL LTD Jessie Hidalgo III, MD Phone: tel: fax: Referral ID Status Reason Start Date Expiration Date Visits Re quested Visits Authorized [id number] Closed 08/02/2019 09/01/2020 1 1 Encounter Details Date Type Department Care Team (Latest Contact Info) Description 08/04/2019 1:27 PM CDT - 08/04/2019 11:59 PM CDT Hospital Encounter [facility] [address] [place] [address] [place] [address] [place] [address] Discharge Disposition: Home or Self Care (Routine [...] Info) Description 08/02/2024 10:00 AM CDT Appointment [facility] [address] [address] Shorty Marks MD [address] [place] [address] 08/02/2024 11:15 AM CDT Office Visit [facility] [address] [address] Shorty Marks MD [address] [place] [address] documented as of this encounter Procedures Procedure [...] bladder documented in this encounter Care Teams Meter Inspector Relationship Specialty Start Date End Date Ilan Pearson MD [address] [place] [address] PCP - General FAMILY PRACTICE 03/24/17 08/05/23 Jose Decker MD [address] [place] [address] Duck Program Manager Rn CARDIOVASCULAR DISEASE 03/24/17 05/01/22 documented as of this encounter
--- OUTSIDE RECORDS SUMMARY | 2024-02-27 12:09 | XMS_ITS | Encounter Summary ---
Author Organization [facility] Address [address] [place] [address]. [place] [address] [place] [address] Care Team Providers Care Package Lift Operator Name Role Phone Ilan Pearson MD Primary Care Provider [phone] Jose Decker MD Unavailable Unavailab le Encounter Details Date Type Department Care Team (Late st Contact Info) Description 05/18/2017 Orders Only [facility] [address] [place] [address] Carmen Mcfarlane, HIRAL Social History [...] 10:[address] [facility] [address] [place] [address] Shorty Marks MD [address] [place], [place] [address] 08/02/2024 11:15 AM CDT [facility] [address] [place] [address] Shorty Marks MD [address] [place] [address] documented as of this encounter Visit Diagnoses Diagnosis Palpitations documented in this encounter Care Teams Package Lift Operator Relationship Specialty Start Date End Date Ilan Pearson MD [address] [place] [address] PCP - General FAMILY PRACTICE 03/24/17 08/05/23 Jose Decker MD [address] [place] [address] [place] Director Nurses' Registry CARDIOVASCULAR DISEASE 03/24/17 05/01/22 documented as of this encounter
--- OUTSIDE RECORDS SUMMARY | 2024-02-27 12:09 | XMS_ITS | Encounter Summary ---
Author Organization [facility] Address [address] [place] [address]. [place] [address] [place] [address] Care Team Providers Care Injury/Safety Hazard Assessment Name Role Phone Ilan Pearson MD Primary Care Provider [phone] Jose Decker MD Unavailable Unavailab le Encounter [...] Info) Description 08/02/2024 10:00 AM CDT Appointment [facility] [address] [place] [address] Shorty Marks MD [address] [place], [place] [address] 08/02/2024 11:15 AM CDT Office Visit [facility] [address] [place] [address] Shorty Marks MD [address] [place] [address] documented as of this encounter Visit Diagnoses Not on filedocumented in this encounter Care Teams Injury/Safety Hazard Assessment Relationship Specialty Start Date End Date Ilan Pearson MD [address] [place] [address] PCP - General FAMILY PRACTICE 03/24/17 08/05/23 Jose Decker MD [address] [place] [address] [place] Wet Machine Tender CARDIOVASCULAR DISEASE 03/24/17 05/01/22 documented as of this encounter
--- OUTSIDE RECORDS SUMMARY | 2024-02-27 12:09 | XMS_ITS | Encounter Summary ---
Author Organization [facility] Address [address] [place] [address]. [place] [address] [place] [address] Care Team Providers Care Sales Support Engineer Name Role Phone Ilan Pearson MD Primary Care Provider [phone] Jose Decker MD Unavailable Unavailab le Encounter [...] Coronavirus/COVID-19? No / Unsure 03/15/2022 1:05 PM HOME ADVISOR documented as of this encounter Plan of Treatment Upcoming Encounters Date Type Department Care Team (Late st Contact Info) Description 08/02/2024 10:00 AM CDT Appointment [facility] [address] [place] [address] Shorty Marks MD [address] [place], [place] [address] 08/02/2024 11:15 AM CDT Office Visit [facility] [address] [place] [address] Shorty Marks MD [address] [place] [address] documented as of this encounter Visit Diagnoses Not on filedocumented in this encounter Additional Health Concerns Infection Onset Date Last Indicated Resolved Time COVID-19 Rule Out 03/15/2022 03/15/2022 03/17/2022 8:17 PM HOME ADVISOR documented as of this encounter Care Teams Sales Support Engineer Relationship Specialty Start Date End Date Ilan Pearson MD [address] [place] [address] PCP - General FAMILY PRACTICE 03/24/17 08/05/23 Jose Decker MD [address] [place] [address] [place] Delivery And Installation Subcontractor CARDIOVASCULAR DISEASE 03/24/17 05/01/22 documented as of this encounter
--- OUTSIDE RECORDS SUMMARY | 2024-02-27 12:09 | XMS_ITS | Encounter Summary ---
Author Organization [facility] Address [address] [place] [address]. [place] [address] [place] [address] Care Team Providers Care Respiratory Care Technician Name Role Phone Ilan Pearson MD Primary Care Provider [phone] Jose Decker MD Unavailable Unavailab Shorty Nice MD Unavailable Godfrey Lamb DPM Unavailable [phone] Thomas Meneses MD Primary Care Provider [phone] Encounter Details Date Type Department Care Team (Late st Contact Info) Description 03/24/2017 Abstract [facility] [address] [place] [address] Jose Decker MD Social History [...] 08/02/2024 10:[address] [place] [address] Shorty Marks MD [address] [place] [address] 08/02/2024 11:15 AM CDT Office Visit [facility] [place] [address] Shorty Marks MD [address] [place] [address] documented as of this encounter Visit Diagnoses [...] Out 03/15/2022 03/15/2022 03/17/2022 8:17 PM DATA ANALYTICS CHIEF SCIENTIST documented as of this encounter Care Teams Respiratory Care Technician Relationship Specialty Start Date End Date Ilan Pearson MD [address] [place] [address] PCP - General FAMILY PRACTICE 03/24/17 08/05/23 Thomas Meneses MD [address] [place] [address] PCP - General FAMILY PRACTICE 08/06/23 Jose Decker MD [address] [place] [address] [place] Residential Sales Rep CARDIOVASCULAR DISEASE 03/24/17 05/01/22 Shorty Marks MD [address] [place] [address] Consulting Physician INTERNAL MEDICINE 05/02/22 Godfrey Lamb DPM [address] [place] [address] PODIATRY 06/13/22 documented as of this encounter
--- OUTSIDE RECORDS SUMMARY | 2024-02-27 12:09 | XMS_ITS | Encounter Summary ---
Author Organization [facility] Address [address] [place] [address]. [place] [address] [place] [address] Care Team Providers Care Glazier Structural Glass Name Role Phone Barak Mckeon MD Primary Care Provider [phone] Jose Decker MD Unavailable Unavailab le Reason for Visit * Reason Comments Follow Up Encounter Details Date Type Department Care Team (Late st Contact Info) Description 09/28/2017 2:40 PM CDT Office Visit [facility] AT [address] [place] [phone] Jose Decker MD Follow Up Social History [...] Palpitations Referring Provider: Barak Mckeon PCP: BARAK CMKEON MD documented in this encounter Plan of Treatment Upcoming Encounters Date Type Department Care Team (Late st Contact Info) Description 08/02/2024 10:00 AM CDT Appointment [facility] [address] [facility] [place] [address] Shorty Marks MD [address] [place] [address] 08/02/2024 11:15 AM CDT Office Visit [facility] [address] [facility] [address] Shorty Marks MD [address] [place] [address] documented as of this encounter Visit Diagnoses Diagnosis Palpitations- Primary documented in this encounter Care Teams Glazier Structural Glass Relationship Specialty Start Date End Date Barak Mckeon MD [address] [place] [address] PCP - General FAMILY PRACTICE 03/24/17 08/05/23 Jose Decker MD [address] [place] [address] [place] Cardiac Rehabilitation Specialist CARDIOVASCULAR DISEASE 03/24/17 05/01/22 documented as of this encounter
--- OUTSIDE RECORDS SUMMARY | 2024-02-27 12:09 | XMS_ITS | Encounter Summary ---
Author Organization [facility] Address [address] [place] [address]. [place] [address] [place] [address] Care Team Providers Care Leases And Land Supervisor Name Role Phone Ilan Pearson MD Primary Care Provider [phone] Jose Decker MD Unavailable Unavailab le Encounter Details Date Type Department Care Team (Late st Contact Info) Description 04/06/[address] [facility] [address] [place] [address] [place] [address] [place] [phone] Social History Tobacco Use Types Packs/Day [...] COVID-19? No / Unsure 04/06/2020 12:36 PM DIGITAL MEDIA MANAGER documented as of this encounter Plan of Treatment Upcoming Encounters Date Type Department Care Team (Late st Contact Info) Description 08/02/2024 10:[address] [facility] [address] [place] [address] Shorty Marks MD [address] [place] [address] 08/02/2024 11:15 AM CDT Office Visit [facility] [place] [address] Shorty Marks MD [address] [place] [address] documented as of this encounter Results * (ABNORMAL) PROSTATE SPECIFIC ANTIGEN,SCREENING (04/06/2020 12:46 PM DIGITAL MEDIA MANAGER) PSA 4.68(H) <4.00 NG/ML 04/06/2020 1:21 PM DIGITAL MEDIA MANAGER [facility] 04/06/2020 12:4 6 PM DIGITAL MEDIA MANAGER us Jessie Hidalgo III, MD LABORATORY Final Re sult [facility] [address] [place] [address] [phone] documented in this encounter Visit Diagnoses Diagnosis Screening for prostate cancer- Primary Special screening for malignant neoplasm of prostate documented in this encounter Care Teams Leases And Land Supervisor Relationship Specialty Start Date End Date Ilan Pearson MD [address] [place] [address] PCP - General FAMILY PRACTICE 03/24/17 08/05/23 Jose Decker MD [address] [place] [address] [place] Evening Sitter CARDIOVASCULAR DISEASE 03/24/17 05/01/22 documented as of this encounter
--- OUTSIDE RECORDS SUMMARY | 2024-02-27 12:09 | XMS_ITS | Encounter Summary ---
Author Organization [facility] Address [address] [place] [address]. [place], [place] [address] [place] [address] Care Team Providers Care Pharmacy Aide Name Role Phone Ilan Pearson MD Primary Care Provider [phone] Jose Decker MD Unavailable Unavailab le Reason for Visit * Reason Onset Date Comments Medication Problem 05/25/2017 Encounter Details Date Type Department Care Team (Late st Contact Info) Description 05/25/2017 [employer] [facility] [address] [place] [address] Jose Decker MD Medication Problem [...] Info) Description 08/02/2024 10:00 AM CDT Appointment [facility] [address] [place], [place] [address] [address] Shorty Marks MD [address] [place], [place] [address] 08/02/2024 11:15 AM CDT Office Visit [facility] [address] [place] [address] Shorty Marks MD [address] [place], [place] [address] documented as of this encounter Visit Diagnoses Not on filedocumented in this encounter Care Teams Pharmacy Aide Relationship Specialty Start Date End Date Ilan Pearson MD [address] [place] [address] PCP - General FAMILY PRACTICE 03/24/17 08/05/23 Jose Decker MD [address] [place] [address] [place] Courtesy Car Driver CARDIOVASCULAR DISEASE 03/24/17 05/01/22 documented as of this encounter
--- OUTSIDE RECORDS SUMMARY | 2024-02-27 12:09 | XMS_ITS | Encounter Summary ---
Author Organization [facility] Address [address] [place] [address]. [place] [address] [place] [address] Care Team Providers Care Outgoing Inspector Name Role Phone Ilan Pearson MD Primary Care Provider [phone] Jose Decker MD Unavailable Unavailab le Encounter [...] Description 08/02/2024 10:00 AM CDT Appointment [facility] [address] [place] [address] Shorty Marks MD [address] [place], [place] [address] 08/02/2024 11:15 AM CDT Office Visit [facility] [address] [place] [address] Shorty Marks MD [address] [place] [address] documented as of this encounter Visit Diagnoses Not on filedocumented in this encounter Additional Health Concerns Infection Onset Date Last Indicated Resolved Time COVID-19 Rule Out 08/27/2021 08/27/2021 08/27/2021 7:09 PM CDT documented as of this encounter Care Teams Outgoing Inspector Relationship Specialty Start Date End Date Ilan Pearson MD [address] [place] [address] PCP - General FAMILY PRACTICE 03/24/17 08/05/23 Jose Decker MD [address] [place] [address] [place] Unemployment Inspector CARDIOVASCULAR DISEASE 03/24/17 05/01/22 documented as of this encounter
--- OUTSIDE RECORDS SUMMARY | 2024-02-27 12:09 | XMS_ITS | Encounter Summary ---
Author Organization [facility] Address [address] [place] [address]. [place] [address] [place] [address] Care Team Providers Care Wheel Mill Operator Name Role Phone Ilan Pearson MD Primary Care Provider [phone] Jose Decker MD Unavailable Unavailab le Encounter Details Date Type Department Care Team (Late st Contact Info) Description 08/02/[address] [facility] [address] [place] [address] [place] [address] [place] [address] Social History Tobacco Use Types [...] CDT Appointment [facility] [address] [place] [address] Shorty Marks MD [address] [place] [address] 08/02/2024 11:15 AM CDT Office Visit [facility] [place] [address] Shorty Marks MD [address] [place] [address] documented as of this encounter Results * (ABNORMAL) PROSTATE SPECIFIC ANTIGEN, DIAG (08/02/2019 12:13 PM CDT) PSA 6.45(H) <4.00 NG/ML 08/02/2019 12:45 PM CDT [facility] 08/02/2019 12:1 3 PM CDT Jessie Hidalgo III, MD LABORATORY Final Re sult [facility] [address] [place] [address], * (ABNORMAL) BASIC METABOLIC PANEL (08/02/2019 12:13 PM CDT) SODIUM S/P/B 142 136 - 145 MMOL/L 08/02/2019 12:45 PM CDT [facility] POTASSIUM S/P/B 4.1 3.5 - 5.1 MMOL/L 08/02/2019 12:45 PM CDT [facility] CHLORIDE S/P/B 105 98 - 107 MMOL/L 08/02/2019 12:45 PM CDT [facility] CO2 28.5 21.0 - 32.0 MMOL/L 08/02/2019 12:45 PM CDT [facility] GLUCOSE 92 70 - 99 MG/DL 08/02/2019 12:45 PM CDT [facility] Comment: FASTING GLUCOSE 100 TO 125 MG/DL IS CONSISTENT WITH IMPAIRED FASTING GLUCOSE. FASTING GLUCOSE >125 MG/DL IS CONSISTENT WITH DIABETES. RANDOM GLUCOSE >200 MG/DL WITH HYPERGLYCEMIC SYMPTOMS IS CONSISTENT WITH DIABETES. PER ADA GUIDELINES BUN 13 6 - 24 MG/DL 08/02/2019 12:45 PM CDT [facility] CREATININE S/P/B 0.65(L) 0.70 - 1.30 MG/DL 08/02/2019 12:45 PM CDT [facility] CALCIUM S/P/B 9.7 8.4 - 10.5 MG/DL 08/02/2019 12:45 PM CDT [facility] ANION GAP 8.5 5.0 - 15.0 MMOL/L 08/02/2019 12:45 PM CDT [facility] OSMOLALITY (CALC) 294 MOSM/KG 020 12:45 PM CDT [facility] Comment:REFERENCE RANGE NOT ESTABLISHED EGFR NON-AFR. AMER. >90 >89 ML/MIN/1. 73 M2 08/02/2019 12:45 PM CDT [facility] EGFR AFR. AMER. >90 >89 ML/MIN/1. 73 M2 08/02/2019 12:45 PM CDT [facility] GFR NOTES GFR REFERENCE S: 08/02/2019 12:45 PM CDT [facility] Comment: THE ESTIMATED GFR [...] Hidalgo III, MD LABORATORY Final Re sult [facility] [address] [place] [address], documented in this encounter Visit Diagnoses Diagnosis Neurogenic dysfunction of the urinary bladder- Primary Neurogenic bladder, NOS BPH with obstruction/lower urinary tract symptoms Hypertrophy of prostate with urinary obstruction and other lower urinary tract symptoms (LUTS) documented in this encounter Care Teams Wheel Mill Operator Relationship Specialty Start Date End Date Ilan Pearson MD [address] [place] [address] PCP - General FAMILY PRACTICE 03/24/17 08/05/23 Jose Decker MD [address] [place] [address] [place] Material Lister CARDIOVASCULAR DISEASE 03/24/17 05/01/22 documented as of this encounter
--- OUTSIDE RECORDS SUMMARY | 2024-02-27 12:09 | XMS_ITS | Encounter Summary ---
Author Organization [facility] Address [address] [place] [address]. [place] [address] [place] [address] Care Team Providers Care Target Trimmer Name Role Phone Unavailable Primary Care Provider Unavailabl e Reason for Visit * Reason Comments Holter Monitor Report (SCAN) Encounter Details Date Type Department Care Team (Late st Contact Info) Description 09/16/2016 Scan [facility] [address] [place] [id number] Scanned, Documents Holter Monitor Report (SCAN) Social [...] Info) Description 08/02/2024 10:00 AM CDT Appointment [facility] [address] [place] [address] Shorty Marks MD [address] [place] [address] 08/02/2024 11:15 AM CDT Office Visit [facility] [address] [place] [address] Shorty Marks MD [address] [place], [place] [address] documented as of this encounter Procedures Procedure Name Priority Date/Time Associated Diagnosis Comments HOLTER DOCUMENT (SCAN ORDER) Routine 09/03/2016 Palpitations documented in this encounter Results * HOLTER DOCUMENT (09/03/2016) us Documents Scanned SCANNING Final Result documented in this encounter Visit Diagnoses Diagnosis Palpitations- Primary documented in this encounter
--- OUTSIDE RECORDS SUMMARY | 2024-02-27 12:09 | XMS_ITS | Encounter Summary ---
Author Organization [facility] Address [address] [place] [address]. [place], [place] [address] [place] [address] Care Team Providers Care Librarian School Name Role Phone Ilan Pearson MD Primary Care Provider [phone] Jose Decker MD Unavailable Unavailab le Reason for Visit * Reason Onset Date Comments Consult 03/24/2017 Encounter Details Date Type Department Care Team (Late st Contact Info) Description 03/24/2017 Telephone [employer] [facility] [address] [place] [address] Jose Decker MD Consult Social [...] and HM Scheduled 04/08 @ 11:20 in [place]. Sending letter and paperwork. Dr. Patel's office sending records. Holter monitor in [facility] INE SECURITY REPRESENTATIVE documented in this encounter Plan of Treatment Upcoming Encounters Date Type Department Care Team (Late st Contact Info) Description 08/02/2024 10:00 AM CDT Appointment [facility] [address] [place] [address] Shorty Marks MD [address] [place], [place] [address] 08/02/2024 11:15 AM CDT Office Visit [facility] [address] [place] [address] Shorty Marks MD [address] [place], [place] [address] documented as of this encounter Visit Diagnoses Not on filedocumented in this encounter Care Teams Librarian School Relationship Specialty Start Date End Date Ilan Pearson MD [address] [place] [address] PCP - General FAMILY PRACTICE 03/24/17 08/05/23 Jose Decker MD [address] [place] [address] [place] Utilization Specialist CARDIOVASCULAR DISEASE 03/24/17 05/01/22 documented as of this encounter
--- OUTSIDE RECORDS SUMMARY | 2024-02-27 12:09 | XMS_ITS | Encounter Summary ---
Author Organization [facility] Address [address] [place] [address]. [place] [address] [place] [address] Care Team Providers Care City Detective Name Role Phone Ilan Pearson MD Primary Care Provider [phone] Jose Decker MD Unavailable Unavailab le Encounter Details Date Type Department Care Team (Late st Contact Info) Description 06/30/[address] [facility] [address] [address] Ilan Pearson MD [address] [place] [address] Social History Tobacco Use Types Packs/Day Years [...] Appointment [facility] [address] [place] [address] Shorty Marks MD [address] [place], [place] [address] 08/02/2024 11:15 AM CDT Office Visit [facility] [address] [facility] [place] [address] Shorty Marks MD [address] [place] [address] documented as of this encounter Results * PRE-SURGICAL/PRE-PROCEDURE CORONAVIRUS (COVID 19) (06/30/2020 11:50 AM CDT) SPEC DESCRIPTION NASOPHARYNGEAL SWAB 06/30/2020 11:50 AM CDT [facility] CORONAVIRUS SARS COV 2 PCR (RESP) NEGATIVE NEGATIVE 07/02/2020 7:56 PM CDT [facility] Comment: THE SARS-CoV-2 TEST HAS BEEN AUTHORIZED BY THE FDA UNDER AN EUA FOR USE BY AUTHORIZED LABORATORIES. PERFORMED BY NUCLEIC ACID AMPLIFICATION PCR FIRST TEST NO 06/30/2020 11:50 AM CDT [facility] EMPLOYED IN HEALTHCARE NO 06/30/2020 11:50 AM CDT [facility] SYMPTOMATIC DEFINED BY CDC NO 06/30/2020 11:50 AM CDT [facility] HOSPITALIZATION STATUS NO 06/30/2020 11:50 AM CDT [facility] PATIENT IN ICU NO 06/30/2020 11:50 AM CDT [facility] RESIDENT OF [facility] NO 06/30/2020 11:50 AM CDT [facility] NASOPHARYNGEAL SWAB / Unknown 06/30/2020 11:50 AM CDT us Ilan Pearson MD MICROBIOLOGY - GENERAL ORDERA BLES Final Result [facility] [address] [place] [address], [place] [phone] [facility] [address] [place] [address], [place] [phone] documented in this encounter Visit Diagnoses Diagnosis Preop examination- Primary Preoperative examination, unspecified documented in this encounter Additional Health Concerns Infection Onset Date Last Indicated Resolved Time COVID-19 Rule Out 06/30/2020 06/30/2020 07/02/2020 7:56 PM CDT documented as of this encounter Care Teams City Detective Relationship Specialty Start Date End Date Ilan Pearson MD [address] [place] [address] PCP - General FAMILY PRACTICE 03/24/17 08/05/23 Jose Decker MD [address] [place] [address] Waterproof Human Performance Professor CARDIOVASCULAR DISEASE 03/24/17 05/01/22 documented as of this encounter
--- OUTSIDE RECORDS SUMMARY | 2024-02-27 12:09 | XMS_ITS | Encounter Summary ---
Author Organization [facility] Address [address] [place] [address]. [place] [address] [place] [address] Care Team Providers Care Software Applications Engineer Name Role Phone Ilan Pearson MD Primary Care Provider [phone] Jose Decker MD Unavailable Unavailab le Encounter [...] COVID-19? No / Unsure 04/06/2020 12:36 PM MULTI OPERATION MACHINE OPERATOR documented as of this encounter Plan of Treatment Upcoming Encounters Date Type Department Care Team (Late st Contact Info) Description 08/02/2024 10:[address] [facility] [address] [place] [address] Shorty Marks MD [address] [place], [place] [address] 08/02/2024 11:15 AM CDT Office Visit [facility] [address] [place] [address] Shorty Marks MD [address] [place] [address] documented as of this encounter Visit Diagnoses Not on filedocumented in this encounter Care Teams Software Applications Engineer Relationship Specialty Start Date End Date Ilan Pearson MD [address] [place] [address] PCP - General FAMILY PRACTICE 03/24/17 08/05/23 Jose Decker MD [address] [place] [address] [place] Clinical Documentation Manager CARDIOVASCULAR DISEASE 03/24/17 05/01/22 documented as of this encounter
--- OUTSIDE RECORDS SUMMARY | 2024-02-27 12:09 | XMS_ITS | Encounter Summary ---
Author Organization [facility] Address [address] [place] [address]. [place] [address] [place] [address] Care Team Providers Care Smt Operator Name Role Phone Ilan Pearson MD Primary Care Provider [phone] Jose Decker MD Unavailable Unavailab le Encounter Details Date Type Department Care Team (Late st Contact Info) Description 03/15/[address] [facility] [address] [place] [address] Angelito Gross MD [address] [place] [address] Social History Tobacco Use Types Packs/Day [...] Coronavirus/COVID-19? No / Unsure 03/15/2022 1:05 PM REGULATORY SPECIALIST documented as of this encounter Plan of Treatment Upcoming Encounters Date Type Department Care Team (Late st Contact Info) Description 08/02/2024 10:[address] [facility] [address] [place] [address] Shorty Marks MD [address] [place] [address] 08/02/2024 11:15 AM CDT Office Visit [facility] [address] [place] [address] [place] [address] Shorty Marks MD [address] [place] [address] documented as of this encounter Results * PRE-SURGICAL/PRE-PROCEDURE CORONAVIRUS (COVID 19) (03/15/2022 1:16 PM REGULATORY SPECIALIST) SPEC DESCRIPTION NASAL 03/15/19 1:16 PM REGULATORY SPECIALIST [facility] CORONAVIRUS SARS COV 2 PCR (RESP) NEGATIVE NEGATIVE 03/17/2022 8:17 PM REGULATORY SPECIALIST [facility] Comment: THE SARS-CoV-2 TEST HAS BEEN AUTHORIZED BY THE FDA UNDER AN EUA FOR USE BY AUTHORIZED LABORATORIES. PERFORMED BY NUCLEIC ACID AMPLIFICATION PCR FIRST TEST NO 03/15/2022 1:16 PM REGULATORY SPECIALIST [facility] EMPLOYED IN HEALTHCARE NO 03/15/2022 1:16 PM REGULATORY SPECIALIST [facility] SYMPTOMATIC DEFINED BY CDC NO 03/15/2022 1:16 PM REGULATORY SPECIALIST [facility] HOSPITALIZATION STATUS NO 03/15/2022 1:16 PM REGULATORY SPECIALIST [facility] PATIENT IN ICU NO 03/15/2022 1:16 PM REGULATORY SPECIALIST [facility] NO 03/15/2022 1:16 PM REGULATORY SPECIALIST [facility] NASAL STRUCTURE / Unknown 03/15/2022 1:16 PM REGULATORY SPECIALIST us Angelito Gross MD MICROBIOLOGY - GENERAL ORDERABLE S Final Result [facility] [address] [place] [address], [place] [phone] [facility] [address] [place] [address], [place] [phone] documented in this encounter Visit Diagnoses Diagnosis Encounter for preoperative screening laboratory testing for COVID-19 virus- Primary documented in this encounter Additional Health Concerns Infection Onset Date Last Indicated Resolved Time COVID-19 Rule Out 03/15/2022 03/15/2022 03/17/2022 8:17 PM REGULATORY SPECIALIST documented as of this encounter Care Teams Smt Operator Relationship Specialty Start Date End Date Ilan Pearson MD [address] [place] [address] PCP - General FAMILY PRACTICE 03/24/17 08/05/23 Jose Decker MD [address] [place] [address] [place] Business Lawyer CARDIOVASCULAR DISEASE 03/24/17 05/01/22 documented as of this encounter
--- OUTSIDE RECORDS SUMMARY | 2024-02-27 12:10 | XMS_ITS | Encounter Summary ---
Author Organization [facility] Address [address] [place] [address]. [place] [address] [place] [address] Care Team Providers Care Engraver Pantograph Name Role Phone Ilan Pearson MD Primary Care Provider [phone] Jose Decker MD Unavailable Unavailab le Encounter Details Date Type Department Care Team (Late st Contact Info) Description 07/30/1997 Abstract [facility] [address] [place] [address] , Generic Conversion, Social History Tobacco Use [...] Info) Description 08/02/2024 10:00 AM CDT Appointment [facility] [address] [place] [address] Shorty Marks MD [address] [place], [place] [address] 08/02/2024 11:15 AM CDT Office Visit [facility] [address] [place] [address] Shorty Marks MD [address] [place] [address] documented as of this encounter Visit Diagnoses Not on filedocumented in this encounter Care Teams Engraver Pantograph Relationship Specialty Start Date End Date Ilan Pearson MD [address] [place] [address] PCP - General FAMILY PRACTICE 03/24/17 08/05/23 Jose Decker MD [address] [place] [address] [place] Unarmed Security Officer CARDIOVASCULAR DISEASE 03/24/17 05/01/22 documented as of this encounter
--- OUTSIDE RECORDS SUMMARY | 2024-02-27 12:10 | XMS_ITS | Encounter Summary ---
Author Organization [facility] Address [address] [place] [address]. [place] [address] [place] [address] Care Team Providers Care Agricultural Extension Educator Name Role Phone Ilan Pearson MD Primary Care Provider [phone] Jose Decker MD Unavailable Unavailab le Encounter Details Date Type Department Care Team (Late Contact Info) Description 03/23/2009 Abstract [facility] [address] [facility] [place] [address] Jerrell Gomez MD [address] [place] [address] Social History Tobacco Use Types Packs/Day Years [...] Description 08/02/2024 10:00 AM CDT Appointment [facility] [address] [facility] [address] Shorty Marks MD [address] [place], [place] [address] 08/02/2024 11:15 AM CDT [facility] [address] [facility] [place] [address] Shorty Marks MD [address] [place] [address] documented as of this encounter Visit Diagnoses Diagnosis Open wound of face Open wound of face, unspecified site, without mention of complication documented in this encounter Care Teams Agricultural Extension Educator Relationship Specialty Start Date End Date Ilan Pearson MD [address] [place] [address] PCP - General FAMILY PRACTICE 03/24/17 08/05/23 Jose Decker MD [address] [place] [address] [place] Business Segment Manager CARDIOVASCULAR DISEASE 03/24/17 05/01/22 documented as of this encounter
--- OUTSIDE RECORDS SUMMARY | 2024-02-27 12:10 | XMS_ITS | Encounter Summary ---
Author Organization [facility] Address [address] [place] [address]. [place] [address] [place] [address] Care Team Providers Care Computer Analyst Supervisor Name Role Phone Ilan Pearson MD Primary Care Provider [phone] Jose Deckre MD Unavailable Unavailab le Encounter Details Date Type Department Care Team (Late st Contact Info) Description 10/11/2003 Abstract [facility] [address] [place] [address] Brian Coker MD [address] [facility] [place] [address] Social History Tobacco Use Types Packs/Day Years [...] [facility]ment [facility] [address] [place] [address] Shorty Marks MD [address] [place] [address] 08/02/2024 11:15 AM CDT Office Visit [facility] [address] [place] [address] Shorty Marks MD [address] [place] [address] documented as of this encounter Visit Diagnoses Not on filedocumented in this encounter Care Teams Computer Analyst Supervisor Relationship Specialty Start Date End Date Ilan Pearson MD [address] [place] [address] PCP - General FAMILY PRACTICE 03/24/17 08/05/23 Jose Decker MD [address] [place] [address] Jackson Clock Smith CARDIOVASCULAR DISEASE 03/24/17 05/01/22 documented as of this encounter
--- OUTSIDE RECORDS SUMMARY | 2024-02-27 12:13 | XMS_ITS | Continuity of Care Document ---
Author Organization [facility] Address [address] [place] [address] [address] [place] [address] Phone Care Team Providers Care Sack Sorter Name Role Phone Pisano OD, Blaine Unavailable Unavailable Procedures Procedure Date Office/outpatient Visit, Est Remove Foreign Body From Eye Advance Directives Directive Yes / No Effective Date File Name No Information Encounters Encounter Description Practice Location Reason(s) For Visit Diagnoses Date Provider Providers Copied on Encounter Office/outpat ient Visit, Est [facility], [id number] [place] [address] [address], [place], [place], [id number], tel:[phone] [facility] No Information 5-201 0 Pisano OD Blaine. [address] , [address], [place], [place], [facility], [place]. tel:[phone] [facility], [address] [place] [address] [address], [place], [place], [id number], tel:[phone] [facility] No Information 8-201 0 Pisano OD Blaine. [address] , [address], [place], [address], [place]. tel:[phone] Family History Family Member Type Diagnosis Age At Onset No Information Payers Payer name Insurance type Covered republican ID Authoriza tion(s) [employer] [facility] [id number] Social History Type Description Quantity Date Captured [...]
--- OUTSIDE RECORDS SUMMARY | 2024-02-27 12:13 | XMS_ITS | Clinical Summary ---
Author Organization [facility] Address [address] [place] [id number] Care Team Providers Care Lodging Facilities Attendant Name Role Phone Unavailable Primary Care Provider Unavailabl e Allergies Active Allergy Reactions Criticality Noted Date Comments Gabapentin 03/24/2017 Skin reactions Other reaction(s): Skin Reactions, Unknown Iodine 05/31/2019 Skin reactions Lactose Diarrhea Medium 06/10/2019 Other 05/31/2019 [employer]. Skin reactions Povidone Iodine 05/26/2019 Other reaction(s): Skin Reactions Medications acetaminophen (TYLENOL) 325 MG tablet Take 2 tablets (650 mg total) by mouth every 6 (six) hours as needed for mild pain (1 - 3). 0 0 Active bisacodyl (DULCOLAX) 10 MG suppository Insert 1 suppository (10 mg total) into the rectum daily as needed for constipation (may be given on non-scheduled suppository days if needed/requested ). 0 0 Active Diclofenac Sodium (VOLTAREN) 1 % gel Apply 2 g topically 4 (four) times a day as needed (elbow, shoulder, neck pain PRN). 100 g 0 Active montelukast (SINGULAIR) 10 MG tablet Take 1 tablet (10 mg total) by mouth daily. 30 tablet 0 Active Active Problems Problem Noted Date Diagnosed Date Cervical spinal cord injury 06/09/2019 Sepsis 06/06/2019 Spinal injury 05/31/2019 Immunizations Name Administration Dates Next Due Influenza, Unspecified 05/31/2019(Deferr ed: Patient not in facility during flu season) Family History Medical History Relation Name Comments Cancer Brother Heart disease Brother Cancer Father Heart disease Mother Heart disease Sister Relation Name Status Comments Brother Father Mother Sister Social History Tobacco Use Types Packs/Day Years Used Date Smoking Tobacco: Former Cigarettes 2 10 1 974 - 1983 Smokeless Tobacco: Never Tobacco Cessation:Counseling Given: No Alcohol Use Standard Drinks/Week Comments Yes 0 (1 standard drink = 0.6 oz pur e alcohol) occasional drinker Sex and Gender Information Value Date Recorded Sex Assigned at Not on file Legal Sex Male 2:14 PM EDT Gender Identity Not on file Sexual Orientation Not on file Last Filed Vital Signs Vital Sign Reading Time Taken Comments Blood Pressure 123/72 07/08/2019 7:00 AM CDT Pulse 78 07/08/2019 7:00 AM CDT Temperature 36.7 ??C (98 ??F) 07/08/2019 7:00 AM CDT Respiratory Rate 20 07/08/2019 7:00 AM CDT Oxygen Saturation 98% 07/08/2019 7:00 AM CDT Inhaled Oxygen Concentration - - Weight 71.4 kg (157 lb 8 oz) 06/19/2019 8:52 PM CDT Height 182.9 cm (6') 06/09/2019 6:00 PM CDT Body Mass Index 21.36 06/09/2019 6:00 PM CDT Plan of Treatment Not on file Advance Directives * Full Resuscitation (Latest Code Status on File) Date Activated Date Inactivated Comments 06/09/2019 5:58 PM 07/08/2019 5:34 PM * Full Resuscitation Date Activated Date Inactivated Comments 05/31/2019 5:58 PM 06/06/2019 11:46 PM
--- OUTSIDE RECORDS SUMMARY | 2024-02-27 12:14 | XMS_ITS | Encounter Summary ---
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 Assistance Level: Total assistance Comment: Propels 6 feet with BLE and minimal assist for navigating turns and narrow spaces Wheel 150 Feet - CARE Score: 1 Type of Wheelchair/Scooter: Manual Wheel 150 Feet - CARE Score: 1 (06/10/19 1241 : Yesi Kellogg, PT) Wheel 150 Feet - CARE Score: 5 (07/07/19 1610 : Yesi Kellogg, PT) PT Other Jail Goals Most Recent Value Other PT Jail Goals Other Goals - Family Mediator Jail 1, Jail 2 Filed on: 06/10/2019 1248 Other Family Mediator Goal 1 Patient will transfer sit to/from stand with minimal assistance Filed on: 07/07/2019 1613 Other Jail Goal 1 Status Partially Achieved Filed on: 07/07/20191612 Other Family Mediator Goal 2 Patient will transition supine to/from sitting with minimal assistance Filedon: 07/07/20191612 Other Family Mediator Goal 2 Status Not Achieved Filed on: 07/07/2019 161 Expected Achievement Date 08/05/19 Filed on: 06/10/2019 1248 Occupational Therapy Discharge Summary OT Current Functional Status: Mr. Tyler is completing the following at discharge: FEEDING: with total assistance. 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 BATHING: with total assistance, sponge bathing. TOILETING: with total assistance, bowel management and straight catheterization. UPPER BODY DRESSING: with total assistance. LOWER BODY DRESSING: with total assistance, bed level utilizing modified techniques. FOOTWEAR: with total assistance. BED <> W/C TRANSFER: with moderate assistance, stand pivot transfer. TOILET TRANSFER: with total assistance. SIT TO STAND: with minimal assistance, from bed surface. LYING TO SITTING: with moderate assistance. SITTING TO LYING: with total assistance. ROLLING SIDE TO SIDE: with minimal assistance to L. Mr. Tyler has demonstrated progress in the areas of bed mobility and functional transfers with participation in intensive OT rehabilitation services in the inpatient setting. He has also demonstrated improved BUE strength, activity tolerance, core strength, and standing balance during his inpatient rehabilitation. Mr. Tyler has been provided education regarding SCI and family has participated in education and family training. Mr. Tyler and family report that additional family is available to provide assistance upon discharge. Mr. Tyler would benefit from continued participation in OT services in the outpatient setting in order to continue to address barriers to safety and independence with ADLs and functional transfers. With improved strength, Mr. Tyler would benefit from return to inpatient rehabilitation to address goals for increased independence with ADLs and functional transfers. Weight Bearing Status: Full - No restrictions throughout RUE: Full weight-bearing LUE: Full weight-bearing RLE: Full weight-bearing LLE: Full weight-bearing Patient needs assistance with the following: Activities of daily living; Going out in the community; Use of bathroom equipment; Sitting balance; Positioning; Rolling; Reaching Prosthetic/Orthotic Required: No Prosthetic/Orthotic Device Type: Soft cervical collar OT Jail Goals: Care Score Legend 1 Dependent 2 Substantial/maximal assistance 3 Partial/moderate assistance 4 Supervision or touching assistance 5 Setup or clean-up assistance 6 Independent 7 Patient refused 9 N/A 10 Not attempted due to environmental limitations 88 Not attempted due to medical condition or safety concern Goal on Admission Admission Status Discharge Status Eating Assistance Needed: Physical assistance Physical Assistance Level: Total assistance Comment: Pt requires total assistance for feeding self due to impaired functional use of BUE. Eating - CARE Score: 1 Eating - CARE Score: 1 (06/09/191833 : Leila Gomez RN) Eating - CARE Score: 1 (07/08/19 075 : Rosemary Murphy OT) Oral Hygiene Assistance Needed: Physical assistance Physical Assistance Level: Total assistance Comment: Pt has dentures, but does not use. Pt reports not completing oral care. Reason if not Attempted: Activity not applicable Oral Hygiene - CARE Score: 1 Oral Hygiene - CARE Score: 1 (06/09/191833 : Leila Gomez RN) Oral Hygiene - CARE Score: 9 (07/08/19758 : Rosemary Murphy OT) Toileting Hygiene Assistance Needed: Physical assistance Physical Assistance Level: Total assistance Comment: Neurogenic bowel and bladder. Pt requires total assistance for managing catheter bag. Toileting Hygiene - CARE Score: 1 Toileting Hygiene - CARE Score: 1 (06/09/191833 : Leila Gomez RN) Toileting Hygiene - CARE Score: 1 (07/08/19758 : Rosemary Murphy OT) Shower/Bathe Self Assistance Needed: Physical assistance Physical Assistance Level: Total assistance Comment: did not complete at this time Reason if not Attempted: Safety concerns Shower/Bathe Self - CARE Score: 88 Shower/Bathe Self - CARE Score: 88 (06/09/191833 : Leila Gomez RN) Shower/Bathe Self - CARE Score: 1 (07/08/199 : Rosemary Murphy OT) Upper Body Dressing Assistance Needed: Physical assistance Physical Assistance Level: Total assistance Comment: per pt Reason if not Attempted: Safety concerns Upper Body Dressing - CARE Score: 1 Upper Body Dressing - CARE Score: 1 (06/09/191833 : Leila Gomez RN) Upper Body Dressing - CARE Score: 1 (07/08/19758 : Rosemary Murphy OT) Lower Body Dressing Assistance Needed: Physical assistance Physical Assistance Level: Total assistance Comment: per pt Reason if not Attempted: Safety concerns Lower Body Dressing - CARE Score: 1 Lower Body Dressing - CARE Score: 1 (06/09/191833 : Leila Gomez RN) Lower Body Dressing - CARE Score: 1 (07/08/19 0759 : Rosemary Murphy OT) Putting On/Taking Off Footwear Assistance Needed: Physical assistance Physical Assistance Level: Total assistance Comment: Pt participates in footwear bed level. Pt requires total assitance for donning compressionstockings and socks to BLE. Pt requries assistance for 4/4 footwear tasks. Reason if not Attempted: Safety concerns Putting On/Taking Off Footwear - CARE Score: 1 Putting On/Taking Off Footwear - CARE Score: 1 (06/09/191833 : Leila Gmoez RN) Putting On/Taking Off Footwear - CARE Score: 1 (07/08/19 0759 : Rosemary Murpyh OT) Roll Left and Right Assistance Needed: Physical assistance Physical Assistance Level: Total assistance Comment: Pt requires total assistance for rolling side to side for participation in ADLs bed level. Roll Left and Right - CARE Score: 1 Roll Left and Right - CARE Score: 1 (06/10/19 0834 : Jayla Cavazos) Roll Left and Right - CARE Score: 3 (07/08/19 075 : Rosemary Murphy OT) Sit to Lying Assistance Needed: Physical assistance Physical Assistance Level: Total assistance Comment: Pt requires total assistance due to impaired functional use of BUE and impaired upper bodystrength. Reason if not Attempted: Safety concerns Sit to Lying - CARE Score: 88 Sit to Lying - CARE Score: 88 (06/09/191833 : Leila Gomez RN) Sit to Lying - CARE Score: 1 (07/08/19 0759 : Rosemary Murphy OT) Lying to Sitting on Side of Bed Assistance Needed: Physical assistance Physical Assistance Level: Total assistance Comment: Pt requires total assistance due to impaired functional use of BUE and impaired upper bodystrength. Reason if not Attempted: Safety concerns Lying to Sitting on Side of Bed - CARE Score: 88 Lying to Sitting on Side of Bed - CARE Score: 88 (06/09/191833 : Leila Gomez RN) Lying to Sitting on Side of Bed - CARE Score: 3 (07/08/19 0759: Rosemary Murphy OT) Sit to Stand Assistance Needed: Physical assistance Physical Assistance Level: Total assistance Comment: Pt requires assistance of x1 to achieve stand and assistance of second due to decreased sitting balance. Reason if not Attempted: Safety concerns Sit to Stand - CARE Score: 88 Sit to Stand - CARE Score: 88 (06/09/191833 : Leila Gomez RN) Sit to Stand - CARE Score: 3 (07/08/19 0759 : Rosemary Murphy OT) Chair/Sye-xn-Lqhzo Transfer Assistance Needed: Physical assistance Physical Assistance Level: Total assistance Comment: Pt requires assistance of x1 to achieve stand and assistance of second due to decreased sitting balance for trunk management. Reason if not Attempted: Safety concerns Chair/Epp-nd-Qnpjj Transfer - CARE Score: 88 Chair/Rug-ma-Gvzrb Transfer - CARE Score: 88 (06/08/201734 : Leila Gomez RN) Chair/Zbl-fu-Rwbun Transfer - CARE Score: 3 (07/08/19 0759 : Rosemary Murphy OT) Toilet Transfer Assistance Needed: Physical assistance Physical Assistance Level: Total assistance Comment: Pt did not refuse; however, not attempted this date due to time limitations. Will assess as soon as possible. Reason if not Attempted: Safety concerns Toilet Transfer - CARE Score: 88 Toilet Transfer - CARE Score: 88 (06/09/191833 : Leila Gomez RN) Toilet Transfer - CARE Score: 1 (07/08/19 0759 : Rosemary Murphy OT) Speech Therapy Discharge Summary None Jail Goals: Goal Discharge Status CC: No primary care provider on file. TIME SPENT ON DISCHARGE: more/less than 30 minutes Cosigned by Toya Stearns MD at 07/09/2019 10:46 AM CDT Associated attestation - Toya Stearns MD - 07/09/2019 11:46 AM EDT The patient is being seen for follow-up of all current problems, BP, BS , HR, labs and strength. Follow up on pain, swallowing, bladder and bowel function. Strength improving, able to do therapy ok. I saw and evaluated the patient face to face in conjunction with the [employer] and agree with the management and disposition of the patient. History also obtained from Nurse and staff about how the patient did overnight and during the day. I performed tillman portions of the follow up, review of labs and radiology and evaluation. I agree with the subjective, physical exam and assessment and plan details as outlined in the note below. Discussed the tillman medical decision making- both assessment and plan, rehabilitation goals and treatment plan with patient, [employer] , nursing staff, industrial painter and the members of the team. documented in this encounter Discharge Instructions * Discharge Instructions* Catalina Patricia NP - 07/08/2019 4:52 PM CDT Follow up with your PCP in 1week Follow Up CBC, BMP in 1week at PCP office Caution use of wheelchair and transfers to prevent further injuries or falls keep all follow up appts with MDs Diet and exercise : Addition of 4 to 5 servings of fruits and vegetables would help to improve cardiovascular and cerebrovascular health. Also Fish is better that any meat and white meat is better than red meat. Baked or broiled will be better than fried food. Exercise daily based on what you were trained by your therapist Stop smoking and alcohol No Driving until cleared by your therapist. No driving if you are on pain medicine If you have diabetes Check Blood sugars twice a day Keep a log Take it to next Doctor's visit. Call MD if sugars more than 300 or less than 70 If you had a stroke Follow Up neurologist in 1-2 weeks Call your physician For any new weakness or worsening weakness, any speech or vision disturbance and unsteady walking. Risk factors for stroke are HTN, hypercholestrol and the optimal treatment of these is important. The goal BP <140/85 mm hg systolic, goal LDL is <70, Optimal Blood glucose control as close to normal as possible with HbA1C <7 as important factors in stroke risk reduction. 4) Diet and exercise : counseling given to patient. Addition of 4 to 5 servings of fruits and vegetables would help to improve cardiovascular and cerebrovascular health. Also Fish is better that any meat and white meat is better than red meat. Baked or broiled will be better than fried food. [place] [employer] recommends total of 2 and 1/2 hrs of aerobic excercise in a week which could be divided in 40 min daily for 5 days. Brisk walking or treadmill , swimming, cycling, jogging are different option. Patient and family expressed the understanding. If you have had a surgery Follow up with the surgeon in 1-2 weeks Check incision daily Call your surgeon's office if you have questions or concerns, or for any of the following issues: -- temperature higher than 100 F -- shortness of breath -- pain that gets worse or does not get better after taking your pain medication(s) as directed -- if you cannot urinate for 6-8 hours after your surgery or if you become uncomfortable -- nausea or vomiting or cannot eat or drink -- bleeding or drainage from your incision or IV site -- if your incision or IV site looks infected (red, swollen, warm to the touch, or non-clear, foul-smelling drainage) -- if you have new or increased weakness or numbness in your arms or legs. Numbness and tingling are usually the last symptoms to resolve, and may take weeks to months. -- if you have increased neck swelling, difficulty swallowing fluids, or having a hard time breathing -- if you have any calf pain or tenderness If you have Congestive heart Failure Weigh yourself daily and keep a log. Take it to the next doctor's visit. Notify your physician of a weight gain more than 2 pounds on 1 day or pounds in one week. Follow a low salt diet - avoid using salt at the table, avoid / limit use of canned soups, processed / packaged foods, salted snacks, olives and pickles. Do not use a salt substitute without consulting your physician. Notify your physician for Chest pain, Shortness of breath, Swelling in your legs or hands, palpitations, your heart rate becomes fast or irregular,dizzy spells or blackouts. * Discharge Instr - CM* EDWIN Wheeler - 07/07/2019 3:08 PM CDT In 2 weeks Contact [facility] Rachna Nuno at [phone] about coming back to rehab. * Discharge Instr- Wound* Riri Johnson RN - 07/08/2019 12:47 PM CDT Use a barrier cream to buttocks at all times after cleansing and drying well at all times documented in this encounter Medications at Time of Discharge acetaminophen (TYLENOL) 325 MG tablet Take 2 tablets (650 mg total) by mouth every 6 (six) hours as needed for mild pain (1 - 3). 0 07/07/2019 bisacodyl (DULCOLAX) 10 MG suppository Insert 1 suppository (10 mg total) into the rectum daily as needed for constipation (may be given on non-scheduled suppository days if needed/requested) . 0 07/07/2019 Diclofenac Sodium (VOLTAREN) 1 % gel Apply 2 g topically 4 (four) times a day as needed (elbow, shoulder, neck pain PRN). 100 g 07/08/2019 montelukast (SINGULAIR) 10 MG tablet Take 1 tablet (10 mg total) by mouth daily. 30 tablet 07/08/2019 Apixaban (ELIQUIS) 2.5 MG tablet tablet Take 1 tablet (2.5 mg total) by mouth 2 (two) times a day for 11 doses. 60 tablet 07/08/2019 0 documented as of this encounter Progress Notes * Chris Sousa MD - 07/08/2019 2:10 PM CDT PHYSICAL MEDICINE & REHABILITATION INTERDISCIPLINARY PROGRESS NOTE Name: Ajit Sanchez ) Age: 59 y.o. Date of : 1960 Room Number: 215/215-1 CC, Reason for Follow-up Visit Central cord syndrome, acquired traumatic SCI rehabilitation HPI/Interval History Overnight: no acute events overnight Therapies: participated with final therapies yesterday Complaints/concerns/Interval history: - VSS, AF - discussed discharge considerations with the patient - again discussed neurogenic bowel and neurogenic bladder - again discussed aspects of central cord - discussed patient with ALEX Loera today - discussed patient with HIRAL Menezes prior to discharge as well - patient reports he will have additional assistance from his nephew, an EMT, and a nurse friend. His nephew's home is apparently wheelchair accessible - family trianing performed yesterday - had a bowel movement this morning - patient expressed gratitude for care received and expresses that should he require inpatient rehabilitation in the future, he would want it done here Discussed patient with: nursing, therapists Review of Systems Chest pain: negative Palpitations: negative Dyspnea/shortness of breath (SOB): negative Abdominal pain: negative Last bowel movement: 07/08/19 MSK pain: positive for neck pain and tenderness (minimal on this visit). + bilateral shoulder pain -- minor on this visit Other: positive for odynophagia and throat pain, but improved since admission and without associated dysphagia. Reports improvement since 06/27/19 though still bothersome to patient at times REVIEW OF PAST MEDICAL/SURGICAL HISTORY, FAMILY HISTORY, SOCIAL HISTORY Past Medical History: Arthralgia of multiple joints 04/15/2016 Cervicalgia 10/19/2015 Intermittent Palpitations with??Holter documented sinus tachycardia s/p??anterior cervical fusion??(2016) History of sepsis ?? Recent conditions and surgical interventions as per HPI ? Surgical??History Past Surgical History: Procedure Laterality Date ??? APPENDECTOMY ? BACK SURGERY ?? 06/09/2019 ?? cervical neck surgery ? Family History Problem Relation Age of Onset ??? Heart disease Mother ? Cancer Father ? Heart disease Sister ? Cancer Brother ? Heart disease Brother ? Social History: ?? Social History ?? Substance and Sexual Activity Alcohol Use Yes ?? Comment: occasional drinker ?? Social History ?? Tobacco Use Smoking Status Former Smoker ??? Packs/day: 2.00 ??? Years: 10.00 ??? Pack years: 20.00 ??? Start date: 1973 ??? Last attempt to quit: 1983 ??? Years since quittin.3 Smokeless Tobacco Never Used ?? Social History ?? Substance and Sexual Activity Drug Use Yes ??? Frequency: 3.0 times per week ??? Types: Marijuana Allergies: Allergies Allergen Reactions ??? Lactose Diarrhea ??? Gabapentin Skin reactions Other reaction(s): Skin Reactions, Unknown ??? Iodine Skin reactions ??? Other Mercurycom. Skin reactions ??? Povidone Iodine Other reaction(s): Skin Reactions Current Medications: Current Facility-Administered Medications: ??? acetaminophen (TYLENOL) tablet 650 mg, 650 mg, Oral, Q6H PRN, Jayjay Barnes MD, 650 mg at 07/04/19 1303 ??? Apixaban (ELIQUIS) tablet 2.5 mg, 2.5 mg, Oral, 2 times per day, Jayjay Barnes MD, 2.5 mg at 07/08/19 09 ??? Benzocaine-Menthol (CEPACOL) 1 lozenge, 1 lozenge, Oral, TID PRN, Catalina Patricia NP ??? bisacodyl (DULCOLAX) suppository 10 mg, 10 mg, Rectal, Q48H, ASHANTI Stone, 10 mg at 07/05/19 1758 ??? bisacodyl (DULCOLAX) suppository 10 mg, 10 mg, Rectal, Daily PRN, Chris Sousa MD ??? calcium carbonate (TUMS) chewable tablet 500 mg, 500 mg, Oral, BID with meals, Jayjay Barnes MD, 500 mg at 07/08/19 09 ??? Diclofenac Sodium (VOLTAREN) 1 % gel 2 g, 2 g, Topical, 4x Daily PRN, Chris Sousa MD ??? docusate sodium (COLACE) capsule 100 mg, 100 mg, Oral, 2 times per day, Chris Sousa MD,100 mg at 07/07/19 2131 ??? guaiFENesin (MUCINEX) 12 hr tablet 600 mg, 600 mg, Oral, 2 times per day, Catalina Patricia NP, 600 mg at 07/08/19 0917 ??? ipratropium-albuterol (DUO-NEB) 0.5-2.5 mg/3 mL nebulizer solution 3 mL, 3 mL, Inhalation, RTQIDPRN, ASHANTI Stone ??? montelukast (SINGULAIR) tablet 10 mg, 10 mg, Oral, Once a day, Jayjay Barnes MD, 10 mg at 07/08/19 0917 ??? sodium chloride (OCEAN) 0.65 % nasal spray 1 spray, 1 spray, Each Nostril, 2 times per day, ASHANTI Stone, 1 spray at 07/07/192130 Current Outpatient Medications: ??? acetaminophen (TYLENOL) 325 MG tablet, Take 2 tablets (650 mg total) by mouth every 6 (six) hours as needed for mild pain (1 - 3)., Disp: , Rfl: 0 ??? Apixaban (ELIQUIS) 2.5 MG tablet tablet, Take 1 tablet (2.5 mg total) by mouth 2 (two) times a day for 11 doses., Disp: 60 tablet, Rfl: 0 ??? bisacodyl (DULCOLAX) 10 MG suppository, Insert 1 suppository (10 mg total) into the rectum daily as needed for constipation (may be given on non-scheduled suppository days if needed/requested)., Disp: , Rfl: 0 ??? Diclofenac Sodium (VOLTAREN) 1 % gel, Apply 2 g topically 4 (four) times a day as needed (elbow, shoulder, neck pain PRN)., Disp: 100 g, Rfl: 0 ??? montelukast (SINGULAIR) 10 MG tablet, Take 1 tablet (10 mg total) by mouth daily., Disp: 30 tablet, Rfl: 0 I have reviewed the above history. There are no changes noted to the above, unless further specified. EXAMINATION Vitals: Vitals: 06/19/19205107/07/19 0823 07/07/19213707/08/19 0700 BP: 133/82 137/77 123/72 Pulse: 77 77 78 Resp: Temp: 97.1 ??F (36.2 ??C) 98.5 ??F (36.9 ??C) 98 ??F (36.7 ??C) TempSrc: Oral Oral Oral SpO2: 99% 98% 98% Weight: 157 lb 8 oz (71.4 kg) Height: General Appearance: ?Alert, cooperative, NAD, appears stated age, thin white male, seated, no diaphoresis, appears comfortable, non-toxic, seated in power wheelchair Head: ?Normocephalic, traumatic with abrasions, ecchymoses essentially healed, and repaired lacerations Eyes: ?Anicteric sclerae, moist conjunctivae, PERRL, EOMI, + left subconjunctival ecchymosis resolving Ears:?Hearing grossly intact to normal voice, L posterior auricular wound, hears finger rub bilaterally Nose: ?No nasal drainage ?or sinus tenderness Throat: ??Oropharynx clear with MMM and no evident mucosal ulcerations; hard and soft palate WNL, edentulous, no oral erythema or exudate noted Neck: ?Supple, symmetric Posterior 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 incision JA, 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 Minimal paraspinal tenderness without any associated erythema, temperature increase, or swelling onthis visit Lungs: ?CTAB, respirations unlabored, on room air Chest wall: ?No tenderness or deformity Heart: ?RRR, no m/r/c/g appreciated Abdomen: ?Soft, non-tender, non-distended, no hepatosplenomegaly or other masses appreciated,normoactive bowel sounds Genitourinary: Santo no longer present Extremities: ?No calf tenderness or pain with ankle dorsiflexion bilaterally No clubbing or cyanosis No peripheral edema Minimal, though present, bilateral shoulder tenderness Pulses: ?2+ and symmetric radial pulses Skin: Head as above Neck as above Extremities as above Face with healed abrasions, healed ecchymoses, and R posterior auricular repaired laceration. L outer ankle abrasion Posterior neck incision as above Neurologic: ?? Alert CN II-XII intact. Follows one-step commands Speech fluent and comprehensible Hoarseness of voice much improved since admission ?? MMT and sensory examination deferred on this visit, but AROM noted with BUE EF and EE--improved from admission. EE stronger than EF. Proximal RUE a bit stronger compared to LUE. RUE EF nearly 2, LUE EF 2-. EE ~ 2+ on RUE and 2 on LUE. BUE AROM to FF also noted. ? Psychiatric: Affect appropriate Cooperative with examination ? DATA/LAB/RADIOLOGY Labs: Lab Results Component Value Date WBC 7.9 07/07/2019 HGB 12.2 07/07/2019 HCT 38.2 07/07/2019 MCV 86.2 07/07/2019 PLT 342 07/07/2019 Lab Results Component Value Date GLUCOSE 84 07/07/2019 CALCIUM 9.0 07/07/2019 NA 138 07/07/2019 K 4.0 07/07/2019 CO2 24 07/07/2019 CL 102 07/07/2019 BUN 10 07/07/2019 CREATININE 0.60 (L) 07/07/2019 Recent Labs Lab Units 07/07/19 0459 SODIUM MMOL/L BLOOD mmol/L 138 POTASSIUM MMOL/L BLOOD mmol/L 4.0 CHLORIDE mmol/L 102 CO2 mmol/L 24 BUN MG/DL BLOOD mg/dL 10 CREATININE mg/dL 0.60* GLUCOSE MG/DL BLOOD mg/dL 84 CALCIUM MG/DL BLOOD mg/dL 9.0 ANION GAP BLOOD mmol/L 12 Above labs reviewed. Imaging Studies Xr Abdomen 1 Vws Result Date: 06/17/2019 NARRATIVE: Abdomen AP Indication: Constipation Findings: No dilated loops of bowel are identified to suggest obstruction. A moderate volume of stool is present. Santo catheter is seen over the bladder. No free air on this supine film. *Reading Radiologist: Petra Emery on 06/17/2019 at 10:09 AM REVIEW OF FUNCTIONAL STATUS Section GG CARE Scores - Current All Therapy Physical Therapy Car Transfer Car Transfer - CARE Score: 3 (07/07/191609 : Yesi Kellogg PT) Walk 10 Feet Walk 10 Feet - CARE Score: 2 (07/07/191609 : Yesi Kellogg PT) Walk 50 Feet with Two Turns Walk 50 Feet with Two Turns - CARE Score: 3 (07/07/191609 : Yesi Alanis PT) Walk 150 Feet Walk 150 Feet - CARE Score: 88 (07/07/191609 : Yesi Kellogg PT) Walking 10 Feet on Uneven Surfaces Walking 10 Feet on Uneven Surfaces - CARE Score: 88 (07/07/191609 : Yesi M Bess, PT) 1 Step (Curb) 1 Step (Curb) - CARE Score: 88 (07/07/191609 : Yesi Kellogg PT) 4 Steps 4 Steps - CARE Score: 88 (07/07/191609 : Yesi Kellogg PT) 12 Steps 12 Steps - CARE Score: 88 (07/07/191609 : Yesi Kellogg PT) Picking Up Object Picking Up Object - CARE Score: 88 (07/07/191609 : Yesi Kellogg PT) Wheel 50 Feet with Two Turns Wheel 50 Feet with Two Turns - CARE Score: 5 (07/07/191609 : Leander Kellogg PT) Wheel 150 Feet Wheel 150 Feet - CARE Score: 5 (07/07/191609 : Yesi Kellogg PT) Occupational Therapy Eating Eating - CARE Score: 1 (07/08/19758 : Rosemary Murphy OT) Oral Hygiene Oral Hygiene - CARE Score: 9 (07/08/19758 : Rosemary Murphy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 Nutritional status is improving Outcome: Progressing Problem: Urinary Incontinence Goal: Perineal skin integrity is maintained or improved Outcome: Progressing Problem: Bowel Incontinence Goal: Perineal Skin Integrity is Maintained or Improved Outcome: Progressing Problem: Pain Goal: Patient's pain/discomfort is manageable Outcome: Progressing * PT Discharge Summary - Yesi Kellogg, FAIZA - 07/07/2019 4:13 PM CDT Physical Therapy Discharge Summary Patient Name: Ajit Tyler Patient Birthdate: 1960 PT CURRENT FUNCTIONAL STATUS: PT Current Functional Status: PT Current Functional Status: Mr. Tyler'rosalia current functional status at discharge is as follows: TRANSFERS- sit to/from stand with moderate assistance of one, stand pivot transfer with maximal assistance of one, lateral car transfer using transfer board with moderate assistance and assistance for setup, lateral transfer with transfer board and moderate to maximal assistance, supine to sitting with moderate assist of one for trunk with HOB slightly elevated and able to manage BLE without assist, sitting EOB to supine with total A for management of trunk and BLE, rolling side to side with minimal assistance of one- able to manage LEs to aide in force production and momentum when pushing toside however requires min A at trunk, AMBULATION- ambulates 52 feet without assistive device and moderate progressing to maximal assistance of 1 with wheelchair follow for safety, unsafe to attempt uneven surfaces at this time, ELEVATIONS- unsafe to attempt at this time, 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 Current barriers include impaired standing balance, UE/LE muscle strength, ataxic movements, musclespasms/tone, tolerance to standing, activity tolerance, proprioception, and impaired to absent sensation, motor planning. Mr. Tyler will be discharging home with the support of his SO, and per SO several others that live in the home with them to assist with mobility. Discuss always having assist of a second person for mobility currently to reduce strain and due to difficulty providing setup for mobility and S.O. states this will always be accomodated at home. He will require use of a hospital bed, lateral transfer board, and power wheelchair with specialized controls to optimize independence and reduce caregiver burden in the home environment. He would continue to benefit from further skilled physical therapy services in the outpatient setting upon discharge to further address the previously listed deficits and maximize independence with mobility. Factors in Goal Achievement: Facilitating Factors: Patient understanding and knowledge, Support of family or caregiver, Improvedfunctional mobility, Patient compliance, Patient motivation, Improved strength, Use of compensatorystrategies and Improved function Barriers: Balance deficits, Diminished endurance, Pain, Strength limitations, Motor control deficits, Spasticity, Impaired skin integrity and Tone deficits Date Last Assessed: 07/07/2019 Patient needs assistance with the following activities: Balance, Negotiating ramps or curbs, Rolling, Walking and/or mobility, Positioning, Sitting balance and Reaching Weight Bearing Status: Full - No restrictions throughout DME Recommendations Common Therapy DME: Other (comment), Transfer Board, Hospital Bed(power w/c) Transfer Board - Type: 30 in with cutout CARE Scores Tillman: 6: Independent. Index provides no assistance with tasks. A device may or may not have been used. 5: Set-up or clean-up assistance. Index sets up or cleans up, but does not assist with tasks. Index may have assisted prior to or following the activity. 4: Supervision or touching assistance. Index provides verbal cues or touching/steadying or contactguard assistance. Assistance may be provided throughout the activity or intermittently. 3: Partial/moderate assistance. Index does less than half the effort. Index lifts, holds, or supports trunk or limbs, but provides less than half the effort. 2: Substantial/maximal assistance. Index does more than half the effort. Index lifts or holds trunk or limbs, and provides more than half the effort. 1: Dependent. Index does all of the effort, or the assistance of two or more helpers is required for the patient to complete the activity. -: Inconsistent or incomplete documentation Activity not attempted values: 7: Patient refused 9: Not applicable - Not attempted and the patient did not perform this activity prior to the current illness, exacerbation, or injury. 10: Not attempted due to environmental limitations (e.g., lack of equipment, weather constraints) 88: Not attempted due to medical condition or safety concerns Family Mediator Goals: Goal Goal Status Discharge Status Car Transfer LTG: Supervision or touching assistance(Patient will perform car transfer using least restrictive assistive device and supervision) Not achieved Car Transfer - CARE Score: 3 (07/07/191609 : Yesi Kellogg PT) N/A or No Goal Listed Walk 10 Feet - CARE Score: 2 (07/07/191609 : Yesi Kellogg, PT) Walk 50 Feet with Two Turns LTG: Supervision or touching assistance(Patient will ambulate 50 feet using least restrictive assistive device and supervision) Not achieved Walk 50 Feet with Two Turns - CARE Score: 3 (07/07/191609 : Yesi Kellogg PT) N/A or No Goal Listed Walk 150 Feet - CARE Score: 88 (07/07/191609 : Yesi Kellogg PT) N/A or No Goal Listed Walking 10 Feet on Uneven Surfaces - CARE Score: 88 (07/07/191609 : Leander Kellogg PT) N/A or No Goal Listed 1 Step (Curb) - CARE Score: 88 (07/07/190 : Yesi Kellogg, PT) 4 Steps LTG: Partial/moderate assistance(Patient will ascend/descend 4 steps with minimal assistance) Not achieved 4 Steps - CARE Score: 88 (07/07/19 1610 : Yesi Kellogg, PT) N/A or No Goal Listed 12 Steps - CARE Score: 88 (07/07/191609 : Yesi Kellogg, PT) N/A or No Goal Listed Picking Up Object - CARE Score: 88 (07/07/191609 : Yesi Kellogg, PT) N/A or No Goal Listed Wheel 50 Feet with Two Turns - CARE Score: 5 (07/07/191609 : Yesi Kellogg, PT) Wheel 150 Feet LTG: Independent(Patient will propel 150 feet over level surfaces using appropriate compensatory strategies and modified independence) Not achieved Wheel 150 Feet - CARE Score: 5 (07/07/191609 : Yesi Kellogg, FAIZA) PT Other Family Mediator Goals Most Recent Value Other PT Family Mediator Goals Other Goals - Jail Jail 1, Family Mediator 2 Filed on: 06/10/2019 1248 Other Jail Goal 1 Patient will transfer sit to/from stand with minimal assistance Filed on: 07/07/2019 1613 Other Family Mediator Goal 1 Status Partially Achieved Filed on: 07/07/2019 1613 Other Jail Goal 2 Patient will transition supine to/from sitting with minimal assistance Filedon: 07/07/2019 1613 Other Jail Goal 2 Status Not Achieved Filed on: 07/07/2019 1613 Expected Achievement Date 08/05/19 Filed on: 06/10/2019 1248 YESI KELLOGG PT 07/07/2019 * Plan of Care - Riri Johnson RN - 07/07/2019 3:52 PM CDT Problem: Infection Goal: Absence of infection and prevention of transmission during hospitalization Outcome: Progressing Problem: Fall Safety Goal: Free from fall injury Outcome: Progressing Problem: Knowledge Deficit Goal: Patient and/or family demonstrate readiness to learn Outcome: Progressing Goal: Patient and/or family verbalizes understanding of education, and/or performs desired skill Outcome: Progressing Problem: Discharge Planning Goal: Discharge to home or other facility with appropriate resources Outcome: Progressing Goal: solar sales associate will develop a plan to decrease their burden and enhance comfort in role Outcome: Progressing Problem: Knowledge Deficit Goal: Patient/family/caregiver demonstrates understanding of disease process, treatment plan, medications, and discharge instructions Outcome: Progressing Problem: Potential for Compromised Skin Integrity Goal: Skin integrity is maintained or improved Outcome: Progressing Goal: Nutritional status is improving Outcome: Progressing Problem: Urinary Incontinence Goal: Perineal skin integrity is maintained or improved Outcome: Progressing Problem: Bowel Incontinence Goal: Perineal Skin Integrity is Maintained or Improved Outcome: Progressing Problem: Pain Goal: Patient's pain/discomfort is manageable Outcome: Progressing * OT Treatment Note - Rosemary Murphy OT - 07/07/2019 10:35 AM CDT Occupational Therapy Treatment Patient Name: Ajit Tyler Patient Birthdate: 1960 Patient Subjective Report - Pt. Agreeable to therapy this date. Pain Assessment Pain Context: Therapy Assessment Prior to Treatment (07/07/19 1033) Pain Assessment: NRS 0-10 (07/07/19 1033) Pain Score: 4 - Moderate Pain (07/07/19 1033) Pain Type: Acute pain (07/07/19 1033) Pain Location: Shoulder (07/07/19 1033) Pain Orientation: Right, Left (07/07/19 1033) Pain Descriptors: Aching (07/07/19 1033) Pain Onset: Ongoing (07/07/19 1033) Pain Frequency: Constant/continuous (07/07/19 1033) Pain Interventions Education Provided: Patient (07/07/19 1205) Non-Pharmacologic Pain Interventions: Distractions, Exercise/Activity, Position/Reposition, Relaxation, Rest (07/07/19 1205) Emotional/Spiritual Pain Interventions: Emotional Support (07/07/19 1205) ADL Training: ADL Training Narrative: Pt.'s sister and s/o present this date for family training. Pt. And family provided education regarding current functional status with ADLs- provided education regarding need for assist with all dressing, bathing, and toileting aspects. Pt. Reports family witnessed bridging technique bed level for lower body dressing and that family demonstrates understanding of LE positioning to assist pt. To complete. Family verbalizes understanding of current recommendation of assist required. S/o educated on techniques for safety with placement and removal of compression stockings-provided skilled visual demonstration for techniques. Pt. Seated in w/c in tilt position with LE foot rests raised for improved caregiver safety for proper working height. S/o demos good carryover and demos ability to safely assist pt. With donning and doffing compression stocking to RLE. OT Therapeutic Activity: Therapeutic Exercise: Pt. Seated in w/c at table- pt. Participates in BUE strengthening with AAROM to address improve functional endurance and UE strength in support of pt. Goals for increased independence with ADLs and functional transfers. Pt.'s s/o and sister educated on use of table jenn to participation in shoulder strengthening- also report son will be able to assist with building of recommended therapeutic item. S/o educated on paul wrapping techniques to assist pt. With maintaining functional grasp for participation- provided skilled visual demonstration and verbalizes understanding.Educated family on tillman point of control for improved pt. Success with support at bilateral elbows- verbalize understanding and demos ability to safely assist. Pt. Completes bilateral shoulder flexion/extension 5 reps x 3 sets- pt. Demos good carryover with positioning and demos improved strength with decreased compensatory trunk strength noted. Pt. Educated on grading of therapeutic exercise as HEP and verbalizes understanding. ROM: Family present for family training this date. S/o and sister provided education regarding PROMand AAROM for pt. UE to address joint integrity for prevention of joint contracture and for abilityto assist as pain management technique and improved mobility- verbalizes understanding. Provided skilled visual demonstration for PROM to bilateral shoulder for shoulder flexion/extension, shoulder abduction/adduction, and internal/external rotation. S/o and sister participate in hands on training to enhance understanding and for ability to safely assist- sister demos good carryover of education with ability to safely assist and demos proper UE positioning for pt. Safety. S/o demos ability to safely assist following verbal cues and additional education regarding caregiver UE positioning. Provided continued skilled visual demonstration for ranging of bilateral wrist, fingers, and elbow- verbalizes and demos understanding. Pt. Reports increased comfort following participation in PROM. Pt. Participates in PROM of RUE and LUE (completed unilaterally) shoulder flexion/extension 5 reps x 2 sets, shoulder abduction/adduction 5 reps x 2 sets, shoulder internal/external rotation 5 reps x 2 sets, elbow flexion/extension 10 reps x 1 set, wrist flexion/extension 5 reps x 1 set. Pt. Seated in w/c- pt. Participates in AROM of bilateral wrist flexors to improve strength in preparation for functional use to increase independence with ADLs and functional transfers. S/o and sister educated on assist for positioning of pt. To allow gravity to assist in wrist flexion- verbalize understanding and demos good ability to assist. Pt. Completes wrist extension against gravity 5 reps x 1 set each UE- pt. Demos improved strength this date with ability to achieve improved ROM. Other: Wheelchair vendor, Jerome Pineda, present this date for w/c modifications for increased pt. [place] with w/c management and improved pt. Comfort. Pt. Demos improved success with ability to manage power w/c on and off with use of christian button with RUE. Utilizing leg array, pt. Demos ability to drive w/c and demos good ability to navigate doorways and room environment safely with use. Pt.And family educated on w/c parts required to recline w/c- provided skilled visual demonstration anddemos ability to safely manage w/c part to achieve recline and return back to neutral upright sitting. Pt. And family educated on power w/c controls to achieve pressure relief- pt. Demos good understanding and demos ability to achieve optimal pressure relief position x2 occasions for duration of 3 minutes. Pt. And family provided education regarding importance of pressure relief for skin integrity and for prevention of pressure injury- verbalize understanding of education. Treatment, Outcomes and Plan: OT Narrative:: Significant other and sister present for family training this date. Pt. Demonstratesgood understanding for need to direct self-care in preparation for discharge to home environment. Pt. Demonstrates good carryover for BUE therapeutic exercise for use as HEP upon discharge. Family not agreeable to participating in additional hands on transfer training following PT session. Pt. To discharge home on 07/08/2019. Pt. Seated in w/c with pelvic positioning belt. Family present in room. OT Treatment Outcomes:: Safety device reapplied, Patient tolerated treatment well, Patient is progressing toward STG(s) and Goals met for this session OT Summary Plan of Care: Continue with current plan of care Pain Evaluation and Follow-up Pain Reassessment: 2 (07/07/19 1205) Nursing notified of patient's pain assessment: Not indicated - pain score 2 or less (07/07/19 1205) Therapy Minutes Individual Concurrent Co-Treat Time In : 1033 Time Out: 1205 Breaks/Pauses (Min): 0 mins Total Time with Patient (Min): 92 min Missed Minutes : 2 ROSEMARY MURPHY OT 07/07/2019 * PT Treatment Note - Yesi Kellogg, PT - 07/07/2019 9:00 AM CDT PT Treatment Patient Name: Ajit Tyler Patient Birthdate: 1960 Patient Subjective Report - Pt agreeable to participation in therapy session. Family present at bedside for family training session. Pain Assessment Pain Context: Therapy Assessment Prior to Treatment (07/07/19899) Pain Assessment: NRS 0-10 (07/07/19899) Pain Score: 2 (07/07/19899) Pain Type: Acute pain (07/07/19899) Pain Location: Shoulder, Neck (07/07/19899) Pain Orientation: Right, Left (07/07/19899) Pain Descriptors: Aching, Discomfort, Sore (07/07/19899) Pain Onset: Ongoing (07/07/19899) Pain Frequency: Constant/continuous (07/07/19899) Aggravating Factors: Activity Duration, Positioning (07/07/19899) Functional Impact: Turning, Mood (07/07/19899) Pre-therapy pain intervention required: Patient expressed pain is tolerable/able to proceed (07/07/19899) Pain Interventions Education Provided: Patient (07/07/19899) Non-Pharmacologic Pain Interventions: Distractions, Exercise/Activity, Position/Reposition, Rest (07/07/19899) Emotional/Spiritual Pain Interventions: Emotional Support (05/21/20 0900) Bed Mobility: Performed on bed, Short sit to - from supine and Rolling side to side Bed Mobility Level of Assistance: Maximal Assistance and Minimal Assistance Bed Mobility Comment: Practice bed mobility with pt SO, who will be present at home with pt upon discharge. Discuss rolling and bed mobility strategies to reduce pain and maintain proper body mechanics. Educate with rolling for placement of UEs and pt use of LEs to aide in force production when rolling to side. Pt is incontinent of bowel at start of session and additionally discuss proper and frequent pericare in combination with the bowel routine to prevent skin breakdown. After rolling to R side, therapist demonstrates sitting up from sidelying position and blocking LEs to prevent sliding fwd off EOB. S.O. practices and perform with HOB elevated to reduce strain with lifting- initially having trouble lifting pt's trunk, however provide cues for positioning self closer to bed/patient andplacing BUE further behind pt's back, lifting with hips to prevent straining lower back with lifting. S.O. states she prefers this method. After sitting up to EOB, therapist demonstrates scooting pt's hips laterally and posterior as pt is sliding fwd to EOB. S.O. then performs one lateral scoot to ensure good positioning prior to board placement under hips. Therapist performs transfer to w/c initially due to difficulty safely moving on compliant surface of air mattress. Transfer to 1: Wheelchair Transfer from 1: Bed Technique 1: Lateral with transfer board Transfer Level of Assistance 1: Maximal Assistance Trials/Comments1: Discuss setup of lateral transfer with transfer board for safe completion of lateral transfer- cues provided as SO removes armrest, seatbelt, footrests, and placement of board. Requires assist for full board placement under hips due to difficulty achieving hip clearance and fully wedging board under hips. After assisting with setup and board placement, SO performs lateral transfer and cues provided for providing further fwd weight shift to pt and blocking B knees to improve hip clearance Transfer to 2: Stand Transfer from 2: Sit Technique 2: Sit to stand Transfer Level of Assistance 2: Moderate Assistance Trials/Comments 2: Mod A for force production Transfer to 3: Wheelchair Transfer from 3: Bed Technique 3: Stand pivot Transfer Level of Assistance 3: Moderate Assistance Trials/Comments 3: Mod A for weight shifting without AD and demonstrates improved foot placement/sequencing of stepping during transfer Wheelchair Analysis: Educate family regarding use and setup of wheelchair- including removal of thigh lateral drive pieces, lifting/moving arm rest for transfers, foot rests, switching between manual and drive feature to manually push chair if needed, seat belt, and driving using attendant switch/joystick. Static Sitting Balance Support: Feet supported Static Sitting Level of Assistance: Maximal Assistance and Total Assistance/Dependent Static Sitting # of Mins/Comments: 5 mins PT Treatment Outcomes:: Cues needed for safety, Goals met for this session, Patient is progressing toward STG, Patient and family education progressing as expected and Patient tolerated session fair PT Summary:: Pt sister and S.O. present for family training during session in preparation for discharge home tomorrow. Increased time spent throughout for discussion and demonstration of proper body mechanics to prevent injury to self and patient with all mobility. Practice rolling side to side in bed, short sit to/from supine, lateral transfers, and wheelchair setup/operations. Pt S.O. frequently states there are several people available at home to assist with all mobility and transfers. Discuss all mobility occurring at the wheelchair level with use of transfer board due to increased difficulty with standing, estuardo with fatigue. Patient would benefit from a hospital bed at home to reduce caregiver strain with transfers and bed mobility due to raising/lowering height of bed for transfers and additionally for elevating HOB- as caregiver is unable to safely lift pt from supine without raising HOB to reduce degrees of freedom. A hospital bed will additionally help to maintain skin integrity and reduce occurrence of skin breakdown associated with positioning needs. Pt sitting up in wheelchair at completion of session with seatbelt on and OT present for continuation of family training. PT Summary Plan of Care: Continue with current plan of care Pain Evaluation and Follow-up Pain Reassessment: 4 (07/07/19 1032) Nursing notified of patient's pain assessment: Primary Nurse (07/07/19 1032) Therapy Minutes Individual Concurrent Co-Treat Time In : 0900 Time Out: 1033 Breaks/Pauses (Min): 0 mins Total Time with Patient (Min): 93 min Missed Minutes : 3 YESI KELLOGG, PT 07/07/2019 * Plan of Care - Felisha Eddy RN - 07/06/2019 10:53 PM CDT Problem: Infection Goal: Absence of infection and prevention of transmission during hospitalization Outcome: Progressing Problem: Fall Safety Goal: Free from fall injury Outcome: Progressing Problem: Potential for Compromised Skin Integrity Goal: Skin integrity is maintained or improved Outcome: Progressing Problem: Bowel Incontinence Goal: Perineal Skin Integrity is Maintained or Improved Outcome: Progressing * Plan of Care - Cinthya Urena RN - 07/06/2019 1:40 PM CDT Problem: Infection Goal: Absence of infection and prevention of transmission during hospitalization Outcome: Progressing Problem: Fall Safety Goal: Free from fall injury Outcome: Progressing Problem: Knowledge Deficit Goal: Patient and/or family demonstrate readiness to learn Outcome: Progressing Goal: Patient and/or family verbalizes understanding of education, and/or performs desired skill Outcome: Progressing Problem: Discharge Planning Goal: Discharge to home or other facility with appropriate resources Outcome: Progressing Goal: solar sales associate will develop a plan to decrease their burden and enhance comfort in role Outcome: Progressing Problem: Knowledge Deficit Goal: Patient/family/caregiver demonstrates understanding of disease process, treatment plan, medications, and discharge instructions Outcome: Progressing Problem: Potential for Compromised Skin Integrity Goal: Skin integrity is maintained or improved Outcome: Progressing Goal: Nutritional status is improving Outcome: Progressing Problem: Urinary Incontinence Goal: Perineal skin integrity is maintained or improved Outcome: Progressing Problem: Bowel Incontinence Goal: Perineal Skin Integrity is Maintained or Improved Outcome: Progressing Problem: Pain Goal: Patient's pain/discomfort is manageable Outcome: Progressing * OT Treatment Note - Rosemary Murphy OT - 07/06/2019 11:24 AM CDT Occupational Therapy Treatment Patient Name: Ajit Tyler Patient Birthdate: 1960 Patient Subjective Report - Pt. Agreeable to therapy this date. Pain Assessment Pain Context: Therapy Assessment Prior to Treatment (07/06/19 1124) Pain Assessment: NRS 0-10 (07/06/19 1124) Pain Score: 4 - Moderate Pain (07/06/19 1124) Pain Type: Acute pain (07/06/19 1124) Pain Location: Shoulder, Elbow (07/06/19 1124) Pain Orientation: Right, Left (07/06/19 1124) Pain Descriptors: Aching (07/06/19 1124) Pain Interventions Education Provided: Patient (07/06/19 1348) Non-Pharmacologic Pain Interventions: Distractions, Exercise/Activity, Position/Reposition, Relaxation, Rest (07/06/19 1348) Emotional/Spiritual Pain Interventions: Emotional Support (07/06/19 1348) Pain at 1306: 4- reports same as previous pain at start of session ADL Status: Toileting: Total Assistance/Dependent Toileting Where Assessed: Bed level Toilet Comments: Pt. incontinet of bowel this date- requires total assist for cleansing bed level. Pt. demos ability to assist with clothing management for increased ease for caregiver utilizing bridge technique for pants. Bed, Chair, Wheelchair Transfer: Moderate Assistance and Maximal Assistance Bed/Chair Transfer to: Bed and Wheelchair Bed/Chair Transfer from: Bed and Wheelchair Bed/Chair Transfer Technique: Stand pivot Assistive Devices Used: No device Bed/Chair Transfer Comments: See transfer narrative Transfer Training: Transfer Narrative: Pt. Completes transfer to bed to L from w/c- completes to level bed surface. Pt. Nahun improved force production from chair this date, requiring min assist to achieve stand with improved BLE strength. Pt. Tessieos improved coordination of BLE this for pivot, however demos decreased strength with buckling of bilateral knees. Assist provided for bilateral knee block for increased safety- pt. Moderate assist to pivot to bed with increased time required for pivot. Pt. Completes transfer back to w/c to R- pt. Tessieos increased knee buckling this date and requires maximal assist to maintain standing balance. Pt. Requires max assist for pivot to level w/c surface. Pt. Tessieos improved postural control with ability to maintain forward trunk flexion for increased safety with descent to sit. Bed Mobility Comment: Pt. Requires moderate assist to manage trunk with transition from supine to short sit EOB. Pt. Tessieos improved BLE strength with ability to manage EOB. Pt. Tessieos improved strength with rolling to R side, demoing ability to achieve roll with moderate assist- assist provided to place LLE into hip and knee flexion for improved momentum. Pt. Tessieos ability to roll to L with minimal assist. Pt. Requires total assist to manage trunk and BLE with transition to supine from short sit EOB. Pt. Would benefit from hopsital bed for increased patient and caregiver safety to complete functional transfers and bed mobility. OT Therapeutic Activity: Therapeutic Activity: Pt. Seated in w/c- pt. Participates in therapeutic activity to address and improve BUE coordination and dexterity in preparation for functional use to increase independence withADLs and functional transfers. Pt. Tessieos improved strength with finger flexion this date. Pt. Provided skilled visual demonstration for finger opposition and educated on participation as therapeutic exercise to improve finger isolation, strength, and coordination- verbalizes understanding. Pt. Tessieos difficulty with finger opposition with LUE due to decreased strength. Pt. Tessieos improved coordination of RUE with ability to achieve finger opposition of 1st digit to 2nd and 3rd digit. Pt. Tessieos muscle fatigue with participation and benefits from functional rest break for muscle mormonism. ROM: Pt. Seated in w/c- pt. Participates in PROM of BUE in order to address and improve joint integrity and ROM and to increase comfort in preparation for participation in therapeutic activity. Pt. Passively moved through shoulder flexion/extenstion, shoulder abduction/adduction, shoulder internal/external rotation, and elbow flexion/extension unilaterally. Pt. Tolerates shoulder abduction and flexion to 90 degrees bilaterally for improved participation at end range prior to point of pain. Pt. Reports increased comfort and decreased pain with participation. Neuromuscular Re-education: Neuromuscular Re-education: Yes Response to Techniques: Pt. Participates to improve bilateral bicep strength for improved ROM in support of functional use. Pt. Provided verbal directive to actively contract with application of stimulation- pt. Tessiecorrine ability to actively contract with participation. Participates duration of 8 minutes- pt. Nahun improved strength with participation- completes elbow flexion against gravity. Modalities: Modalities: Yes RUE Electrical Stimulation Location: Upper arm RUE Electrical Stimulation Action: Elbow flexion- bicep RUE Electrical Stimulation Parameters: Nigerien reciprocal stimulation- 50 BPS with 5/5 cycle time and 5 second ramp. Stimulation applied to bicep- Stimulation applied at 50 mA CC. RUE Electrical Stimulation Goals: Strength and Neuromuscular facilitation (see response to techniques ) LUE Electrical Stimulation Location: Upper arm LUE Electrical Stimulation Action: Elbow flexion- bicep LUE Electrical Stimulation Parameters: Nigerien reciprocal stimulation- 50 BPS with 5/5 cycle time and 5 second ramp. Stimulation applied to bicep- stimulation applied to bicep at 33 mA CC. LUE Electrical Stimulation Goals: Strength and Neuromuscular facilitation (see response to techniques ) Treatment, Outcomes and Plan: OT Narrative:: Pt. Nahun improved BUE strength this date and improved coordination of RUE. Pt. Tessieos improved force production with functional transfer this date. Pt. Would benefit from continued participation in intensive OT rehabilitation services in order to address standing balance, BUE coordina tion, strength, and ROM, sitting balance, and functional strength and endurance for increased independence with ADLs and functional transfer. Pt. Seated in w/c with pelvic positioning belt. ECU call light within reach. OT Treatment Outcomes:: Safety device reapplied, Patient tolerated treatment well, Patient is progressing toward STG(s) and Goals met for this session OT Summary Plan of Care: Continue with current plan of care Pain Evaluation and Follow-up Pain Reassessment: 3 (07/06/19 5761) Nursing notified of patient's pain assessment: Primary Nurse (07/06/19 8071) Therapy Minutes Individual Concurrent Co-Treat Time In : 1124 Time Out: 1348 Breaks/Pauses (Min): 56 mins Total Time with Patient (Min): 88 min Missed Minutes : -2 ROSEMARY MURPHY OT 07/06/2019 * PT Treatment Note - Yesi Kellogg PT - 07/06/2019 8:19 AM CDT PT Treatment Patient Name: Ajit Tyler Patient Birthdate: 1960 Patient Subjective Report - Pt finishing dressing/pericare with nursing techs. Agreeable to participation in therapy session. Pain Assessment Pain Context: Therapy Assessment Prior to Treatment (07/06/19818) Pain Assessment: None/denies pain (07/06/19818) Pain Score: 0 - No pain (07/06/19818) Bed Mobility: Performed on bed, Short sit to - from supine and Rolling side to side Bed Mobility Level of Assistance: Moderate Assistance and Minimal Assistance Bed Mobility Comment: Min A at trunk for rolling to L side with use of RLE, requires mod A for force production at trunk to reach upright sitting at EOB. Demonstrates improved initiation and use of trunk to initiate sitting up from sidelying Surface: Even surface and Indoor Assistive Device: No Device Ambulation Level of Assistance: Moderate Assistance and Maximal Assistance Distance (feet): 52 Gait Analysis: Ambulates 30 + 52 feet without AD and mod-max A x 1 for weight shifting to facilitate advancement of LEs- requiring increased assistance nearing end of each bout, w/c follow for safety. Demonstrates no instances of knee buckling when taking smaller steps. Use of hemisling to RUE throughout for shoulder approximation. Limited in distance by BLE fatigue- demonstrating 2 instances of knee buckling during final steps and requiring sitting at this time. Gait deviations include narrow SOPHY, scissoring gait pattern, ataxic advancement of limbs, flexed fwd trunk, and slow emily. Transfer to 1: Stand Transfer from 1: Sit Technique 1: Sit to stand Transfer Level of Assistance 1: Maximal Assistance and Minimal Assistance Trials/Comments1: For force production from elevated bed surface; requires max A from 22 surface chair height, howevwer able to stand with min A from 27 height of w/c using eye-level feature. Transfer to 2: Wheelchair Transfer from 2: Bed Technique 2: Stand pivot Transfer Level of Assistance 2: Maximal Assistance Trials/Comments 2: Max A for weight shifting and occasional block to LEs during stance phase Wheelchair Level of Assistance: Modified Independent Distance Traveled in Wheelchair (feet): 600 Wheelchair size: 18 Wheelchair Type: Power Wheelchair cushion: Pressure relieving Surface: Even surface, Indoor, Smooth surfaces, Sidewalk, Uneven surface, Outdoor and Thresholds : head array. Wheelchair Propulsion Level of Assistance: Modified Independent Wheelchair Analysis: Propels >600 feet over various terrain- indoor and outdoor- and through small, narrow spaces to simulate home environment. Pt able to perform all mobility without assist once setup with head array system in correct location. Increased time for all propulsion due to slow speeds for safety at this time. Some cues provided initially for future use such as tilting chair posterior to allow pt is independently reposition hips in upright sitting- as positioning with use of headarray is importance to achieve optimal use of equipment; additionally discuss tilting chair fully fwd when driving to allow for tighter turns and prevent feet from catching on obstacles due to lower p rofile. PT Treatment Outcomes:: Compensatory strategies effectively used, Goals met for this session, Improved ambulation performance, Gait deviations reduced, Improved transfer ability noted, Improving overall functional endurance noted, Patient is progressing toward STG, Patient tolerated treatment well and Qualitative gains in function PT Summary:: Session focus on ambulation, transfers, and wheelchair propulsion over various indoor/outdoor terrain. Pt requires max A for force production from low 22 surface height of w/c, however min A when using eye level feature of w/c to raise surface height to >26 inches. Pt additionally demonstrates greatly improved ambulation distances with assist of one- ambulating 52 total feet durin g second bout with initial mod A of one and progressing to max A of 1 with fatigue. Still continuing to recommend wheelchair level transfers upon discharge with use of transfer board, for which will be present tomorrow to participate in family training. Patient remained up sitting in chair at end of session with pelvic positioning belt on, chair alarm in place, sip and puff call light withinreach. PT Summary Plan of Care: Continue with current plan of care Pain Evaluation and Follow-up Pain Reassessment: No pain (07/06/19 0955) Nursing notified of patient's pain assessment: Not indicated - pain score 2 or less (07/06/19 0955) Therapy Minutes Individual Concurrent Co-Treat Time In : 08 Time Out: 954 Breaks/Pauses (Min): 0 mins Total Time with Patient (Min): 96 min Missed Minutes : 6 YESI KELLOGG, PT 07/06/2019 * Plan of Care - Li Muñoz RN - 07/05/2019 8:29 PM CDT Problem: Infection Goal: Absence of infection and prevention of transmission during hospitalization Outcome: Progressing Problem: Fall Safety Goal: Free from fall injury Outcome: Progressing Problem: Knowledge Deficit Goal: Patient and/or family demonstrate readiness to learn Outcome: Progressing Goal: Patient and/or family verbalizes understanding of education, and/or performs desired skill Outcome: Progressing Problem: Discharge Planning Goal: Discharge to home or other facility with appropriate resources Outcome: Progressing Goal: solar sales associate will develop a plan to decrease their burden and enhance comfort in role Outcome: Progressing Problem: Knowledge Deficit Goal: Patient/family/caregiver demonstrates understanding of disease process, treatment plan, medications, and discharge instructions Outcome: Progressing Problem: Potential for Compromised Skin Integrity Goal: Skin integrity is maintained or improved Outcome: Progressing Goal: Nutritional status is improving Outcome: Progressing Problem: Urinary Incontinence Goal: Perineal skin integrity is maintained or improved Outcome: Progressing Problem: Bowel Incontinence Goal: Perineal Skin Integrity is Maintained or Improved Outcome: Progressing Problem: Pain Goal: Patient's pain/discomfort is manageable Outcome: Progressing * Team Conference - EDWIN Wheeler - 07/05/2019 2:35 PM CDT Team Conference Note Date: 07/05/2019 Time: 2:35 PM Patient Name: Ajit Tyler Date of : 1960 Sex: Male Room/Bed: 215/215-1 Primary Insurance: [employer] Medicare Complete Admit Date/Time: 06/09/2019 4:28 PM Patient Active Problem List Diagnosis Date Noted ??? Cervical spinal cord injury 06/09/2019 ??? Sepsis 06/06/2019 ??? Spinal injury 05/31/2019 Team Members Present: Attendees: Chris Sousa MD, EDWIN Wheeler, Rosemary Murphy OT, Yesi Kellogg PT, Judie Briggs RN Case Manager in Attendance: ANNA MARIE MORTON SW Patient/Family Present: Patient Present: No Patient's Family Present: No Anticipated Discharge 07/08/2019 Discharge Plan: Discharge Destination Type: Own Home Back-up Discharge Destination: Own Home Potential Barriers to Return to Prior Living (Use comments to be specific): Caregiver limitations;Capacity for self care;Mobility challenge;Architectural/environmental barrier(s);Home modification challenge;DME issue;Potential need for skills/non-skilled services;Potential need for 24 hour care Suicide Prevention: No Concerns identified at this time Medications: Current Facility-Administered Medications: ??? acetaminophen (TYLENOL) tablet 650 mg, 650 mg, Oral, Q6H PRN, Jayjay Barnes MD, 650 mg at 07/04/19 1303 ??? Apixaban (ELIQUIS) tablet 2.5 mg, 2.5 mg, Oral, 2 times per day, Jayjay Barnes MD, 2.5 mg at 07/05/19 0809 ??? Benzocaine-Menthol (CEPACOL) 1 lozenge, 1 lozenge, Oral, TID with meals, ASHANTI Stone, 1lozenge at 07/05/19 0755 ??? bisacodyl (DULCOLAX) suppository 10 mg, 10 mg, Rectal, Q48H, ASHANTI Stone, 10 mg at 07/03/19 1839 ??? bisacodyl (DULCOLAX) suppository 10 mg, 10 mg, Rectal, Daily PRN, Chris Sousa MD ??? calcium carbonate (TUMS) chewable tablet 500 mg, 500 mg, Oral, BID with meals, Jayjay Barnes MD, 500 mg at 07/05/19 0755 ??? cyclobenzaprine (FLEXERIL) tablet 5 mg, 5 mg, Oral, TID PRN, Jayjay Barnes MD, 5 mg at 06/16/192122 ??? Diclofenac Sodium (VOLTAREN) 1 % gel 2 g, 2 g, Topical, 4x Daily PRN, Chris Sousa MD ??? docusate sodium (COLACE) capsule 100 mg, 100 mg, Oral, 2 times per day, Chris Sousa MD,100 mg at 07/05/19 0809 ??? guaiFENesin (MUCINEX) 12 hr tablet 600 mg, 600 mg, Oral, 2 times per day, Catalina Patricia NP, 600 mg at 07/05/19 0809 ??? ipratropium-albuterol (DUO-NEB) 0.5-2.5 mg/3 mL nebulizer solution 3 mL, 3 mL, Inhalation, RTQIDPRN, ASHANTI Stone ??? montelukast (SINGULAIR) tablet 10 mg, 10 mg, Oral, Once a day, Jayjay Barnes MD, 10 mg at 07/05/19 0809 ??? oxyCODONE (ROXICODONE) immediate release tablet 5 mg, 5 mg, Oral, Q4H PRN, Jayjay Barnes MD, 5 mg at 06/10/192109 ??? sodium chloride (OCEAN) 0.65 % nasal spray 1 spray, 1 spray, Each Nostril, 2 times per day, ASHANTI Stone, 1 spray at 07/03/192025 Pharmacy: Nursing Team Conference: Bladder Continent: Incontinent Bladder: Describe level of assistance required and any barriers encountered in management: STRAIGHTCATH Q 4HRS Bowel Continent: Incontinent Pain: Patient denies pain Nutrition Level of Assistance: Total assistance Respiratory O2 Delivery System: None Skin Intact: Other (comment) Skin Interventions: Specialty bed-mattress Skin: Describe state of skin alterations and progress, or impediments to healing: REDNESS TO BUTTOM, CAMOSEPTIN CREAM APPLIED Wound Rx: None Safety Status: Good safety awareness;Follows instructions Cognitive Orientation: Person;Place;Time;Date Quality of Sleep: Restful Is patient on dialysis?: No PT Weekly Progress Note (Notes from 06/28/19 through 07/05/19) PT Weekly Progress Note by Yesi Kellogg PT at 07/04/2019 3:45 PM Author: Yesi Kellogg PT Service: Therapy Author Type: Physical Therapist Filed: 07/05/2019 12:03 PM Date of Service: 07/04/2019 Status: Signed Air Pumper: Yesi Kellogg PT (Physical Therapist) PT Weekly Progress Note Patient Name: Ajit Tyler Patient Birthdate: 1960 PT CURRENT FUNCTIONAL STATUS: PT Current Functional Status: PT Current Functional Status: Mr. Tyler is making steady progress towards his [facility] mobility goals as evidenced by improved ambulation distances and assistance levels, sit to/from stand transfers, wheelchair mobility, and lateral transfers. His current functional status is as follows: TRANSFERS- sit to/from stand with moderate assistance of one (improved from maximal assist), stand pivot transfer with maximal assistance of one (unchanged), lateral car transfer using transfer boardwith moderate assistance and assistance for setup (improved from stand pivot with maximal assistance of one), lateral transfer with transfer board and moderate assistance (unchanged), supine to sitting with moderate assist of one for trunk with HOB slightly elevated and able to manage BLE without assist (improved from maximal assistance), sitting EOB to supine with total A for management of trunkand BLE (unchanged), rolling side to side with minimal assistance of one- able to manage LEs to aide in force production and momentum when pushing to side however requires min A at trunk (unchanged), AMBULATION- ambulates 38 feet without assistive device and maximal assistance of 1 and minimal assistance of another bilaterally for weight shifting- demonstrates improved foot placement and no instances of scissoring however requires increased time for coordinating at times, with w/c follow for safety- limited in distance by BLE fatigue/weakness and ataxia, decreased trunk control; ambulates 20 feet with maximal assistance of one with wheelchair follow (improved from 16 feet with max A x 1 andSBA of another), unsafe to attempt uneven surfaces at this time, ELEVATIONS- unsafe to attempt at this time, 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 Current barriers include impaired standing balance, UE/LE muscle strength, ataxic movements, musclespasms/tone, tolerance to standing, activity tolerance, proprioception, and impaired to absent sensation, motor planning. Mr. Tyler would continue to benefit from further intensive skilled physical therapy services in order to continue to address these deficits and maximize independence with functional mobility and caregiver direction. Factors in Goal Achievement: Facilitating Factors: Patient understanding and knowledge, Support of family or caregiver, Improvedfunctional mobility, Improved sensation, Decrease in edema, Patient compliance, Patient motivation,Improved balance, Improved strength, Use of compensatory strategies, Improved function and Decreasein pain Barriers: Balance deficits, Diminished endurance, Pain, Strength limitations, Motor control deficits, Spasticity, Impaired skin integrity and Decreased patient understanding Date Last Assessed: 07/04/2019 DME Recommendations Common Therapy DME: Other (comment), Transfer Board, Hospital Bed(power w/c with head array) Transfer Board - Type: 30 in with cutout CARE Score Tillman: 6: Independent. Index provides no assistance with tasks. A device may or may not have been used. 5: Set-up or clean-up assistance. Index sets up or cleans up, but does not assist with tasks. Index may have assisted prior to or following the activity. 4: Supervision or touching assistance. Index provides verbal cues or touching/steadying or contactguard assistance. Assistance may be provided throughout the activity or intermittently. 3: Partial/moderate assistance. Index does less than half the effort. Index lifts, holds, or supports trunk or limbs, but provides less than half the effort. 2: Substantial/maximal assistance. Index does more than half the effort. Index lifts or holds trunk or limbs, and provides more than half the effort. 1: Dependent. Index does all of the effort, or the assistance of two or more helpers is required for the patient to complete the activity. -: Inconsistent or incomplete documentation Activity not attempted values: 7: Patient refused 9: Not applicable - Not attempted and the patient did not perform this activity prior to the current illness, exacerbation, or injury. 10: Not attempted due to environmental limitations (e.g., lack of equipment, weather constraints) 88: Not attempted due to medical condition or safety concerns Jail Goals: Goal Status on Admission Current Status Car Transfer LTG: Supervision or touching assistance(Patient will perform car transfer using least restrictive assistive device and supervision) Car Transfer - CARE Score: 1 (06/10/19 1241 : Leander Kellogg PT) Car Transfer - CARE Score: 3 (07/04/191538) Walk 10 Feet - CARE Score: 88 (06/10/19 124 : Yesi Kellogg PT) Walk 10 Feet - CARE Score: 1 (07/04/191538) Walk 50 Feet with Two Turns LTG: Supervision or touching assistance(Patient will ambulate 50 feet using least restrictive assistive device and supervision) Walk 50 Feet with Two Turns - CARE Score: 88 (06/10/19 1241 : Yesi Kellogg PT) Walk 50 Feet with Two Turns - CARE Score: 88 (07/04/191538) Walk 150 Feet - CARE Score: 88 (06/10/19 1241 : Yesi Kellogg PT) Walk 150 Feet - CARE Score: 88 (07/04/191538) Walking 10 Feet on Uneven Surfaces - CARE Score: 88 (06/10/19 1241 : Yesi Kellogg PT) Walking 10 Feet on Uneven Surfaces - CARE Score: 88 (07/04/191538) 1 Step (Curb) - CARE Score: 88 (06/10/19 1241 : Yesi Kellogg PT) 1 Step (Curb) - CARE Score: 88 (07/04/191538) 4 Steps LTG: Partial/moderate assistance(Patient will ascend/descend 4 steps with minimal assistance) 4 Steps - CARE Score: 88 (06/10/19 1241 : Yesi Kellogg, PT) 4 Steps - CARE Score: 88 (07/04/19 1539) 12 Steps - CARE Score: 88 (06/10/19 1241 : Yesi Kellogg, PT) 12 Steps - CARE Score: 88 (07/04/19 153) Picking Up Object - CARE Score: 88 (06/10/19 1241 : Yesi Kellogg, PT) Picking Up Object - CARE Score: 88 (07/04/19 153) Wheel 50 Feet with Two Turns - CARE Score: 1 (06/10/19 1241 : Yesi Kellogg, PT) Wheel 50 Feet with Two Turns - CARE Score: 4 (07/04/19 153) Wheel 150 Feet LTG: Independent(Patient will propel 150 feet over level surfaces using appropriate compensatory strategies and modified independence) Wheel 150 Feet - CARE Score: 1 (06/10/19 1241 : Yesi Kellogg, PT) Wheel 150 Feet - CARE Score: 4 (07/04/19 153) PT Other Jail Goals Most Recent Value Other PT Family Mediator Goals Other Goals - Jail Family Mediator 1, Family Mediator 2 Filed on: 06/10/2019 1248 Other Family Mediator Goal 1 Patient will transfer sit to/from stand with minimal assistance Filed on: 07/04/2019 1545 Other Jail Goal 1 Status Partially Achieved Filed on: 07/04/2019 1545 Other Family Mediator Goal 2 Patient will transition supine to/from sitting with minimal assistance Filedon: 07/04/2019 1545 Other Jail Goal 2 Status Partially Achieved Filed on: 07/04/2019 1545 Expected Achievement Date 08/05/19 Filed on: 06/10/2019 1248 PT Short Term Goal 1: Focus: Car Transfer Level of Assistance to Meet Short Term Goal: Adaptive equipment and Physical assistance < 25% Details: Patient will perform car transfer with maximal assistance of one (MET 06/28/19) Patient will perform car transfer with moderate assistance of one using least restrictive assistivedevice and compensatory strategies (MET 07/05/19) Patient will perform car transfer with minimal assistance of one using transfer board and assistance for setup Expected Achievement Date: 07/12/2019 Goal Status: Established PT Short Term Goal 2: Focus: Walking Level of Assistance to Meet Short Term Goal: Total assistance Details: Patient will ambulate 30 feet without assistive device and maximal assistance x 2 for weight shifting and blocking BLE (MET 06/28/19) Patient will ambulate 35 feet without assistive device and maximal assistance x 1 for weight shifting and balance Expected Achievement Date: 07/12/2019 Status: Partially Achieved Walking Distance: Other (comment) PT Short Term Goal 3: Focus: Other Level of Assistance to Meet Short Term Goal: Physical assistance 25%-49% Details: Patient will perform stand pivot transfer without assistive device and maximal assistance of one (MET 06/27/19) Patient will perform stand pivot transfer without assistive device and moderate assistance of one Expected Achievement Date: 07/12/2019 Status: Not Achieved PT Short Term Goal 4: Focus: Other Level of Assistance to Meet Short Term Goal: Physical assistance < 25% Details: Patient will transfer sit to stand with moderate assistance of 1 (MET 07/04/19) Patient will transfer sit to stand with minimal assistance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 power: 10.0 W, average asymmetry: 13 % R. PT Treatment Outcomes:: Compensatory strategies effectively used, Gait deviations reduced, Goals met for this session, Improved ambulation performance, Patient is progressing toward STG, Patient tolerated treatment well and Qualitative gains in function PT Summary:: W/c provider present at start of session for finalizing setup of power w/c with head array feature to improve independence with mobility. Session focus on wheelchair propulsion, transfers, ambulation, and FES bike for continuation of LE strengthening. Requires occasional cues with wheelchair propulsion for managing obstacles in tight spaces, however emerging mod I. Begin discussion of discharge planning and continued use of power wheelchair for independence with mobility and assistance of SO for lateral transfers using transfer board. Pt states he will initially be returning to live with a family member who has a ramp entry and wheelchair accessible home while he awaits the completion of the ramp being built at his own home. He additionally states he knows someone currently who owns a wheelchair accessible van, however discuss option of call a ride as well for transportation to appointments and follow-up therapies. Pt sitting up in wheelchair at completion of session withseatbelt on and tech present to assist with eating lunch. PT Summary Plan of Care: Continue with current plan of care Pain Evaluation and Follow-up Pain Reassessment: No pain (07/05/19 1221) Nursing notified of patient's pain assessment: Not indicated - pain score 2 or less (07/05/19 1221) Therapy Minutes Individual Concurrent Co-Treat Time In : 1030 Time Out: 1221 Breaks/Pauses (Min): 6 mins Total Time with Patient (Min): 105 min Missed Minutes : 15 YESI KELLOGG, PT 07/05/2019 * Plan of Care - Jade Barnes RN - 07/05/2019 12:05 AM CDT Problem: Infection Goal: Absence of infection and prevention of transmission during hospitalization Outcome: Progressing Problem: Fall Safety Goal: Free from fall injury Outcome: Progressing Problem: Knowledge Deficit Goal: Patient and/or family demonstrate readiness to learn Outcome: Progressing Goal: Patient and/or family verbalizes understanding of education, and/or performs desired skill Outcome: Progressing Problem: Discharge Planning Goal: Discharge to home or other facility with appropriate resources Outcome: Progressing Goal: solar sales associate will develop a plan to decrease their burden and enhance comfort in role Outcome: Progressing Problem: Knowledge Deficit Goal: Patient/family/caregiver demonstrates understanding of disease process, treatment plan, medications, and discharge instructions Outcome: Progressing Problem: Potential for Compromised Skin Integrity Goal: Skin integrity is maintained or improved Outcome: Progressing Goal: Nutritional status is improving Outcome: Progressing Problem: Urinary Incontinence Goal: Perineal skin integrity is maintained or improved Outcome: Progressing Problem: Bowel Incontinence Goal: Perineal Skin Integrity is Maintained or Improved Outcome: Progressing Problem: Pain Goal: Patient's pain/discomfort is manageable Outcome: Progressing * OT Weekly Progress Note - Rosemary Murphy OT - 07/04/2019 4:01 PM CDT Occupational Therapy Weekly Progress Note Patient Name: Ajit Tyler Patient Birthdate: 1960 OT Current Functional Status: Mr. Tyler is currently completing the following: FEEDING: with total assistance (emerging to maximal assistance with use of MAS and AE). ORAL CARE: reports not completing. BATHING: with total assistance, sponge bathing bed level. TOILETING: with total assistance, straight catheterization. UPPER BODY DRESSING: donnin/doffing gown- not observed donning/doffing shirt. LOWER BODY DRESSING: with total assistance, bed level, demonstrating carryover of techniques for improved ability to assist. FOOTWEAR: with total assistance, demonstrating ability to direct self-care. BED <> W/C TRANSFER: with maximal assistance, stand pivot transfer, demonstrating improved coordination and force production. SIT TO STAND: with moderate assistance, no device, demonstrating improved force production and standing balance. LYING TO SITTING: with moderate assistance (improved). SITTING TO LYING: with total assistance (emerging to maximal assistance) ROLLING SIDE TO SIDE: with minimal assistance to L (improved). Mr. Tyler has participated in ADLs and functional transfers to increase independence and has participated in therapeutic activity to address and improve BUE coordination, strength, and ROM. He has demonstrated progress in the areas of bed mobility, functional transfers, and lower body dressing. Mr. Tyler has demonstrated great improvement in strength of all UE muscle groups with improved ROM and improved muscle contraction for participation in therapeutic activity. He has also demonstrated improved sitting balance for improved participation in therapeutic activity. Mr. Tyler has demonstrated improved LE strength to increase assistance with lower body dressing and ADLs bed level. He demonstrates improved understanding of SCI education and demonstrates understanding of ability to direct self-care for improved self and caregiver safety. Mr. Tyler continues to present with impaired standing balance, impaired sitting balance, impaired BUE coordination, strength, and ROM, decreased trunk control, and decreased functional strength and endurance limiting safe and independent participation in ADLs and functional transfers. He has greatly demonstrated improvement in BUE strength in support of goals for improved functional use of BUE to increase independence with ADLs and functional transfers. Mr. Tyler would benefit from continued participation in intensive OT rehabilitation services in order to address self-care, functional transfers, and barriers to safe and independent discharge to least restrictive environment. Facilitating Factors in Goal Achievement: Patient understanding and knowledge, Patient compliance, Patient motivation, Use of compensatory strategies, Improved strength, Improved functional mobility,Improved ROM and Improved balance Barriers to Goal Achievement: Pain, ROM limitations, Strength limitations, Balance deficits, Motor control deficits and Diminished endurance Date Last Assessed: 07/04/2019 Patient needs assistance with the following activities: Activities of daily living, Going out in the community, Use of bathroom equipment, Rolling, Sitting balance and Reaching Will patient require a prosthetic or orthotic device upon discharge: No CARE Score Tillman: 6: Independent. Index provides no assistance with tasks. A device may or may not have been used. 5: Set-up or clean-up assistance. Index sets up or cleans up, but does not assist with tasks. Index may have assisted prior to or following the activity. 4: Supervision or touching assistance. Index provides verbal cues or touching/steadying or contactguard assistance. Assistance may be provided throughout the activity or intermittently. 3: Partial/moderate assistance. Index does less than half the effort. Index lifts, holds, or supports trunk or limbs, but provides less than half the effort. 2: Substantial/maximal assistance. Index does more than half the effort. Index lifts or holds trunk or limbs, and provides more than half the effort. 1: Dependent. Index does all of the effort, or the assistance of two or more helpers is required for the patient to complete the activity. -: Inconsistent or incomplete documentation Activity not attempted values: 7: Patient refused 9: Not applicable - Not attempted and the patient did not perform this activity prior to the current illness, exacerbation, or injury. 10: Not attempted due to environmental limitations (e.g., lack of equipment, weather constraints) 88: Not attempted due to medical condition or safety concerns Family Mediator Goals: Goal Status on Admission Current Status Eating LTG: Partial/moderate assistance(with AE and modified techniques as needed) Eating - CARE Score: 1 (06/10/1934 : Jayla Cavazos) Eating - CARE Score: 1 (07/04/19 1600) Oral Hygiene - CARE Score: 9 (06/10/1934 : Jayla Cavazos) Oral Hygiene - CARE Score: 9 (07/04/19 1600) Toileting Hygiene LTG: Dependent(with no verbal cues to be able to direct self- care) Toileting Hygiene - CARE Score: 1 (06/10/1934 : Jayla Cavazos) Toileting Hygiene - CARE Score: 1 (07/04/19 1600) Shower/Bathe Self LTG: Partial/moderate assistance(with AE and modified techniques as needed) Shower/Bathe Self - CARE Score: 1 (06/10/1934 : Jayla Cavazos) Shower/Bathe Self - CARE Score: 1 (07/04/19 1600) Upper Body Dressing LTG: Partial/moderate assistance(with modified techniques and AE as needed) Upper Body Dressing - CARE Score: 10 (06/10/19 0834 : Jayla Cavazos) Upper Body Dressing - CARE Score: 1 (07/04/19 1600) Lower Body Dressing LTG: Substantial/maximal assistance(with no verbal cues to be able to direct self-care) Lower Body Dressing - CARE Score: 1 (06/10/19 0834 : Jayla Cavazos) Lower Body Dressing -CARE Score: 1 (07/04/19 1600) Putting On/Taking Off Footwear - CARE Score: 1 (06/10/19 0834 : Jayla Kj) Putting On/Taking Off Footwear - CARE Score: 1 (07/04/19 1600) Roll Left and Right LTG: Partial/moderate assistance Roll Left and Right - CARE Score: 1 (06/10/19 0834 : Jayla Kj) Roll Left and Right - CARE Score: 3 (07/04/19 1600) Sit to Lying - CARE Score: 1 (06/10/19 0834 : Jayla Kj) Sit to Lying - CARE Score: 1 (07/04/19 1600) Lying to Sitting on Side of Bed - CARE Score: 1 (06/10/19 0834 : Jayla Kj) Lying to Sitting on Side of Bed - CARE Score: 3 (07/04/19 1600) Sit to Stand LTG: Partial/moderate assistance Sit to Stand - CARE Score: 1 (06/10/19 0834 : Jayla Kj) Sit to Stand - CARE Score: 3 (07/04/19 1600) Chair/Zfi-nf-Mislr Transfer LTG: Partial/moderate assistance Chair/Wmf-gf-Skthp Transfer - CARE Score: 1 (06/10/19 0834 : Jayla Kj) Chair/Ddk-so-Ihdpz Transfer - CARE Score: 2 (07/04/19 1600) Toilet Transfer - CARE Score: 7 (06/10/19 0834 : Jayla Kj) Toilet Transfer - CARE Score: 1 (07/04/19 1600) Additional Goals & Status: N/A OT Short Term Goal 1: Focus: Eating Details: Pt will feed self with maximal assistance utilizing AE and modified techniques as needed. Expected Achievement Date: 07/11/2019 Goal Status: Not Achieved OT Short Term Goal 2: Focus: Shower/Bathe Details: Pt will complete bathing with maximal assistance utilizing AE and modified techniques as needed. Expected Achievement Date: 07/11/2019 Goal Status: Not Achieved OT Short Term Goal 3: Focus: Upper Body Dressing Details: Pt will complete UBD with maximal assistance utilizing AE and modified techniques. Expected Achievement Date: 07/11/2019 Goal Status: Not Achieved OT Short Term Goal 4: Focus: Lower Body Dressing Details: Pt will complete LBD with total assistance to be able to direct self care. (MET OF 07/04/2019) With maximal assistance, demonstrating ability to direct self-care. Expected Achievement Date: 07/11/2019 Goal Status: Established OT Short Term Goal 5: Focus: Roll Left and Right Details: Pt will complete rolling with maximal assistance. (MET OF 06/12) With moderate assistance (MET OF 07/04/2019) With incidental assistance, to L Expected Achievement Date: 07/11/2019 Goal Status: Established OT Short Term Goal 6: Focus: Sit to Stand Details: Pt will complete sit to stand with maximal assistance. (MET OF 06/12) With moderate assistance (MET OF 06/12) With minimal assistance Expected Achievement Date: 07/11/2019 Goal Status: Not Achieved OT Short Term Goal 7: Focus: Chair/Bed Transfer Details: Pt will complete bed to chair transfer with maximal assistance. (MET OF 06/27/2019) With moderate assistance for stand pivot transfer Expected Achievement Date: 07/11/2019 Goal Status: Not Achieved ROSEMARY MURPHY OT 07/04/2019 * PT Weekly Progress Note - Yesi Kellogg, PT - 07/04/2019 3:45 PM CDT PT Weekly Progress Note Patient Name: Ajit Tyler Patient Birthdate: 1960 PT CURRENT FUNCTIONAL STATUS: PT Current Functional Status: PT Current Functional Status: Mr. Tyler is making steady progress towards his [facility] mobility goals as evidenced by improved ambulation distances and assistance levels, sit to/from stand transfers, wheelchair mobility, and lateral transfers. His current functional status is as follows: TRANSFERS- sit to/from stand with moderate assistance of one (improved from maximal assist), stand pivot transfer with maximal assistance of one (unchanged), lateral car transfer using transfer boardwith moderate assistance and assistance for setup (improved from stand pivot with maximal assistance of one), lateral transfer with transfer board and moderate assistance (unchanged), supine to sitting with moderate assist of one for trunk with HOB slightly elevated and able to manage BLE without assist (improved from maximal assistance), sitting EOB to supine with total A for management of trunkand BLE (unchanged), rolling side to side with minimal assistance of one- able to manage LEs to aide in force production and momentum when pushing to side however requires min A at trunk (unchanged), AMBULATION- ambulates 38 feet without assistive device and maximal assistance of 1 and minimal assistance of another bilaterally for weight shifting- demonstrates improved foot placement and no instances of scissoring however requires increased time for coordinating at times, with w/c follow for safety- limited in distance by BLE fatigue/weakness and ataxia, decreased trunk control; ambulates 20 feet with maximal assistance of one with wheelchair follow (improved from 16 feet with max A x 1 andSBA of another), unsafe to attempt uneven surfaces at this time, ELEVATIONS- unsafe to attempt at this time, 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 Current barriers include impaired standing balance, UE/LE muscle strength, ataxic movements, musclespasms/tone, tolerance to standing, activity tolerance, proprioception, and impaired to absent sensation, motor planning. Mr. Tyler would continue to benefit from further intensive skilled physical therapy services in order to continue to address these deficits and maximize independence with functional mobility and caregiver direction. Factors in Goal Achievement: Facilitating Factors: Patient understanding and knowledge, Support of family or caregiver, Improvedfunctional mobility, Improved sensation, Decrease in edema, Patient compliance, Patient motivation,Improved balance, Improved strength, Use of compensatory strategies, Improved function and Decreasein pain Barriers: Balance deficits, Diminished endurance, Pain, Strength limitations, Motor control deficits, Spasticity, Impaired skin integrity and Decreased patient understanding Date Last Assessed: 07/04/2019 DME Recommendations Common Therapy DME: Other (comment), Transfer Board, Hospital Bed(power w/c with head array) Transfer Board - Type: 30 in with cutout CARE Score Tillman: 6: Independent. Index provides no assistance with tasks. A device may or may not have been used. 5: Set-up or clean-up assistance. Index sets up or cleans up, but does not assist with tasks. Index may have assisted prior to or following the activity. 4: Supervision or touching assistance. Index provides verbal cues or touching/steadying or contactguard assistance. Assistance may be provided throughout the activity or intermittently. 3: Partial/moderate assistance. Index does less than half the effort. Index lifts, holds, or supports trunk or limbs, but provides less than half the effort. 2: Substantial/maximal assistance. Index does more than half the effort. Index lifts or holds trunk or limbs, and provides more than half the effort. 1: Dependent. Index does all of the effort, or the assistance of two or more helpers is required for the patient to complete the activity. -: Inconsistent or incomplete documentation Activity not attempted values: 7: Patient refused 9: Not applicable - Not attempted and the patient did not perform this activity prior to the current illness, exacerbation, or injury. 10: Not attempted due to environmental limitations (e.g., lack of equipment, weather constraints) 88: Not attempted due to medical condition or safety concerns Jail Goals: Goal Status on Admission Current Status Car Transfer LTG: Supervision or touching assistance(Patient will perform car transfer using least restrictive assistive device and supervision) Car Transfer - CARE Score: 1 (06/10/19 124 : Leander Kellogg PT) Car Transfer - CARE Score: 3 (07/04/191538) Walk 10 Feet - CARE Score: 88 (06/10/19 124 : Yesi Kellogg PT) Walk 10 Feet - CARE Score: 1 (07/04/191538) Walk 50 Feet with Two Turns LTG: Supervision or touching assistance(Patient will ambulate 50 feet using least restrictive assistive device and supervision) Walk 50 Feet with Two Turns - CARE Score: 88 (06/10/19 1241 : Yesi Kellogg PT) Walk 50 Feet with Two Turns - CARE Score: 88 (07/04/191538) Walk 150 Feet - CARE Score: 88 (06/10/19 1241 : Yesi Kellogg PT) Walk 150 Feet - CARE Score: 88 (07/04/191538) Walking 10 Feet on Uneven Surfaces - CARE Score: 88 (06/10/19 1241 : Yesi Kellogg PT) Walking 10 Feet on Uneven Surfaces - CARE Score: 88 (07/04/191538) 1 Step (Curb) - CARE Score: 88 (06/10/19 1241 : Yesi Kellogg PT) 1 Step (Curb) - CARE Score: 88 (07/04/191538) 4 Steps LTG: Partial/moderate assistance(Patient will ascend/descend 4 steps with minimal assistance) 4 Steps - CARE Score: 88 (06/10/19 1241 : Yesi Kellogg, PT) 4 Steps - CARE Score: 88 (07/04/19 1539) 12 Steps - CARE Score: 88 (06/10/19 1241 : Yesi Kellogg, PT) 12 Steps - CARE Score: 88 (07/04/19 1539) Picking Up Object - CARE Score: 88 (06/10/19 1241 : Yesi Kellogg, PT) Picking Up Object - CARE Score: 88 (07/04/19 153) Wheel 50 Feet with Two Turns - CARE Score: 1 (06/10/19 1241 : Yesi Kellogg, PT) Wheel 50 Feet with Two Turns - CARE Score: 4 (07/04/19 153) Wheel 150 Feet LTG: Independent(Patient will propel 150 feet over level surfaces using appropriate compensatory strategies and modified independence) Wheel 150 Feet - CARE Score: 1 (06/10/19 1241 : Yesi Kellogg, PT) Wheel 150 Feet - CARE Score: 4 (07/04/19 153) PT Other Family Mediator Goals Most Recent Value Other PT Family Mediator Goals Other Goals - Jail Jail 1, Family Mediator 2 Filed on: 06/10/2019 1248 Other Jail Goal 1 Patient will transfer sit to/from stand with minimal assistance Filed on: 07/04/2019 1545 Other Family Mediator Goal 1 Status Partially Achieved Filed on: 07/04/2019 1545 Other Family Mediator Goal 2 Patient will transition supine to/from sitting with minimal assistance Filedon: 07/04/2019 1545 Other Family Mediator Goal 2 Status Partially Achieved Filed on: 07/04/2019 1545 Expected Achievement Date 08/05/19 Filed on: 06/10/2019 1248 PT Short Term Goal 1: Focus: Car Transfer Level of Assistance to Meet Short Term Goal: Adaptive equipment and Physical assistance < 25% Details: Patient will perform car transfer with maximal assistance of one (MET 06/28/19) Patient will perform car transfer with moderate assistance of one using least restrictive assistivedevice and compensatory strategies (MET 07/05/19) Patient will perform car transfer with minimal assistance of one using transfer board and assistance for setup Expected Achievement Date: 07/12/2019 Goal Status: Established PT Short Term Goal 2: Focus: Walking Level of Assistance to Meet Short Term Goal: Total assistance Details: Patient will ambulate 30 feet without assistive device and maximal assistance x 2 for weight shifting and blocking BLE (MET 06/28/19) Patient will ambulate 35 feet without assistive device and maximal assistance x 1 for weight shifting and balance Expected Achievement Date: 07/12/2019 Status: Partially Achieved Walking Distance: Other (comment) PT Short Term Goal 3: Focus: Other Level of Assistance to Meet Short Term Goal: Physical assistance 25%-49% Details: Patient will perform stand pivot transfer without assistive device and maximal assistance of one (MET 06/27/19) Patient will perform stand pivot transfer without assistive device and moderate assistance of one Expected Achievement Date: 07/12/2019 Status: Not Achieved PT Short Term Goal 4: Focus: Other Level of Assistance to Meet Short Term Goal: Physical assistance < 25% Details: Patient will transfer sit to stand with moderate assistance of 1 (MET 07/04/19) Patient will transfer sit to stand with minimal assistance Expected Achievement Date: 07/12/2019 Goal Status: Established PT Short Term Goal 5: Focus: Wheelchair Management Level of Assistance to Meet Short Term Goal: Independent and Adaptive equipment Details: Patient will propel wheelchair 50 feet with bilateral lower extremities and supervision (DISCONTINUED 07/05/19) Patient will propel power wheelchair >150 feet using appropriate compensatory strategies with modified independence Expected Achievement Date: 07/12/2019 Goal Status: Established Wheelchair Distance: Other (comment) YESI KELLOGG PT 07/05/2019 * PT Treatment Note - Yesi Kellogg PT - 07/04/2019 10:34 AM CDT PT Treatment Patient Name: Ajit Tyler Patient Birthdate: 1960 Patient Subjective Report - Pt agreeable to participation in therapy session, however requesting assistance with pericare due to incontinence of bowel. Pain Assessment Pain Context: Therapy Assessment Prior to Treatment (07/04/19 1034) Pain Assessment: None/denies pain (07/04/19 1034) Pain Score: 0 - No pain (07/04/19 1034) Bed Mobility: Performed on bed, Short sit to - from supine and Rolling side to side Bed Mobility Level of Assistance: Minimal Assistance and Moderate Assistance Bed Mobility Comment: Min A rolling side to side in bed and pt is able to bridge B hips to aide in doffing/donning pants. Supine to sitting with mod A for trunk management- able to manage BLE withoutassist, sitting EOB to supine with max A for BLE management with HOB elevated. Transfer to 1: Stand Transfer from 1: Sit Technique 1: Sit to stand Transfer Level of Assistance 1: Moderate Assistance Trials/Comments1: Mod A for force prodcution from w/c without AD, B knee block required Transfer to 2: Wheelchair Transfer from 2: Bed Technique 2: Stand pivot Transfer Level of Assistance 2: Maximal Assistance Trials/Comments 2: Max A for weight shifting and occasional block to R knee Therapeutic Activities and Neuromuscular Re-education: LOKOMAT: Perform lokomat gait training this session for improved B LE muscle strength and muscle activation, tissue extensibility/ROM, circulation, improved weight bearing, tolerance to upright and proprioception needed for improved speeds and gait pattern during over-ground gait. Skin check performed before and after treatment with no adverse reactions noted. Maintains standing in one bout x 2 min while donning harness. Requires max A x 1 and min A of another to maintain. Patient participates in three augmented performance feedback activities (FASTER!, High Flyer, and Ice Hopper Penguin) for 5 minutes each to improve muscle activation, force production, motor planning and step length on BLE during swing and stance phases. Requires 2 min rest break in between augmented performance activities due to fatigue and performs all augmentedperformance activities with significantly reduced body weight support compared to previous attempts. Education provided throughout regarding benefits and rationale of lokomat use, principles of neuroplasticity, and carryover to functional tasks. % Body Weight Support: 37% minimum (43% previously) and 42% average (51%), Distance: 2,002 feet (2,222), Duration: 23:51 min (24:49), Guidance Force: average 93% (82%), Guidance Force minimum: 80% (50%), Speed: 1.0 mph average (1.0), 1.1 mph max (1.1) speed. While in lokomat, additionally reassess L-FORCE for BLE strength measurement and demonstrates significantly improved strength in B hip ext, with still improved although less significant increases in knee flex and hip flex. See measurements as follows: HIP FLEXION: LLE: 13.1 Nm (12.2 previously), RLE: 28.7 Nm (27 previously) HIP EXTENSION: LLE: 47.1 Nm (18.9), RLE: 49.8 (34.2) KNEE FLEXION: LLE: 28.7 (24.0), RLE: 37 (29.7) KNEE EXTENSION: LLE: 31.9 (33.1), RLE: 24.8 (27.1) PT Treatment Outcomes:: Cues needed for safety, Goals met for this session, Patient is progressing toward STG and Patient tolerated treatment well PT Summary:: Perform lokomat during session x 23 minutes, tolerating 3 total augmented performance feedback games and maintains significantly less body weight support throughout compared to all previous attempts. Additionally re- assess muscle strength in BLE using L-FORCE feature while in lokomat and demonstrates significantly improved strength in B hip ext, with still improved although less significant increases in knee flex and hip flex. Pt is incontinent of bowel at start of session, requiring assist with pericare and donning new brief prior to initiating lokomat. Patient remained up sitting in chair at end of session with pelvic positioning belt on, chair alarm in place, sip and puff call light within reach. PT Summary Plan of Care: Continue with current plan of care Pain Evaluation and Follow-up Pain Reassessment: No pain (07/04/19 1205) Nursing notified of patient's pain assessment: Not indicated - pain score 2 or less (07/04/19 1205) Therapy Minutes Individual Concurrent Co-Treat Time In : 1034 Time Out: 1205 Breaks/Pauses (Min): 0 mins Total Time with Patient (Min): 91 min Missed Minutes : 1 YESI KELLOGG, PT 07/04/2019 * OT Treatment Note - Rosemary Murphy OT - 07/04/2019 9:03 AM CDT Occupational Therapy Treatment Patient Name: Ajit Tyler Patient Birthdate: 1960 Patient Subjective Report - Pt. Agreeable to therapy this . Pain Assessment Pain Context: Therapy Assessment Prior to Treatment (07/04/19902) Pain Assessment: None/denies pain (07/04/19902) ADL Status: Lower Body Dressing Comments: See ADL training narrative Bed/Chair Transfer Comments: See transfer narrative ADL Training: ADL Training Narrative: LOWER BODY DRESSING: Pt. Requires retrieval of clothing for participation. Pt. Demos improved participation this date with improved BLE ROM and strength with ability to clear LE from bed surface for assist with threading of BLE into pants for improved caregiver safety. Pt. Demos ability to manage BLE to hip and knee flexion to achieve bridge- pt. Demos improved BLE and core strength with ability to achieve. Assist to pull pants over hips with pt. In bridge position. FOOTWEAR: Pt. Provided assist to don compression stockings and shoes on BLE in preparation for participation in functional transfer for increased safety with traction of shoes. Transfer Training: Transfer Narrative: Pt. Completes stand pivot transfer to R from bed to w/c. Pt. Tessieos improved force production and body mechanics to achieve stand from EOB- requires minimal assist with improve force production. Pt. Demos improved standing balance and BLE coordination with pivot to w/c. Demos decreased LE strength with bilateral knee buckle, requiring maximal assist to safely descent to sit. Bed Mobility: Performed on bed Bed Mobility Level of Assistance: Moderate Assistance Bed Mobility Comment: Pt. Demos improved LE strength with ability to manage BLE to EOB with participation in supine to short sit EOB. Pt. Requires moderate assist to manage trunk to upright sitting EOB. Neuromuscular Re-education: Neuromuscular Re-education: Yes Functional Movement Patterns: Pt. Participates in neuromuscular re-education this date utilizing functional electrical stimulation (FES) bike this in order to address and improve BUE strength, ROM, coordination, and motor function for improved functional use for increased independence with ADLs. Electrical stimulation utilized to facilitate muscle contraction and functional movement patternsof bilateral scapular stabilizers, anterior deltoids, posterior deltoids, biceps, tricep, and wristextensors through forward (23 minutes, 30 seconds ) direction. The below stimulation was applied to the following muscle groups: L scapular stabilzers: 22 mA L anterior deltoid: 17 mA L posterior deltoid: 11 mA L bicep: 12 mA L tricep 14 mA L wrist extensor: 13 mA R scapular stabilizers: 14 mA R anterior deltoid: 11 mA R posterior deltoid: 15 mA R bicep: 14 mA R tricep 14 mA R wrist extensor: 11 mA Pt. Participates total duration of 23 minutes, 30 seconds, completing 2.46 miles, demonstrating 0% asymmetry with participation. Pt. Demonstrates good UE ROM for participation with no tone or spasticity noted. Pt. Demonstrates good tolerance with participation with no pain or discomfort noted. No irritation or redness noted to skin with placement and removal of stimulation pads. Maximal increased time required for skilled setup and muscle testing this date. Pt. Tessieos improved core strength with ability to maintain upright sitting with min assist for placement of pads on scapular stabilizers. Average power: .1 W Energy expenditure: .1 kCal/hour Pt. Tessieos improved active contraction of BUE with improved BUE strength this date. Pt. Tessieos increased fatigue with increased muscle output this date. Pt. Tessieos improved BUE strength with participation in neuromuscular re-education this date. Treatment, Outcomes and Plan: OT Narrative:: Pt. Tessieos improved ability to assist with ADLs with improved BLE strength. Pt. Demosimproved BUE strength this date with improved contraction and output with neuromuscular re-education utilizing FES bike. Pt. Would benefit from continued participation in intensive OT rehabilitation services in order to address sitting balance, BUE coordination, strength, and ROM, and functional str ength and endurance for increased independence with ADLs and functional transfers. Pt. Seated in w/c with pelvic positioning belt and alarm active. Transitions to participation in PT. OT Treatment Outcomes:: Safety device reapplied Pain Evaluation and Follow-up Pain Reassessment: No pain (07/04/19 1033) Nursing notified of patient's pain assessment: Not indicated - pain score 2 or less (07/04/19 1033) Therapy Minutes Individual Concurrent Co-Treat Time In : 09 Time Out: 1033 Breaks/Pauses (Min): 0 mins Total Time with Patient (Min): 90 min Missed Minutes : 0 ROSEMARY MURPHY OT 07/04/2019 * Plan of Care - Jade Barnes RN - 07/04/2019 2:00 AM CDT Problem: Infection Goal: Absence of infection and prevention of transmission during hospitalization Outcome: Progressing Problem: Fall Safety Goal: Free from fall injury Outcome: Progressing Problem: Knowledge Deficit Goal: Patient and/or family demonstrate readiness to learn Outcome: Progressing Goal: Patient and/or family verbalizes understanding of education, and/or performs desired skill Outcome: Progressing Problem: Discharge Planning Goal: Discharge to home or other facility with appropriate resources Outcome: Progressing Goal: solar sales associate will develop a plan to decrease their burden and enhance comfort in role Outcome: Progressing Problem: Knowledge Deficit Goal: Patient/family/caregiver demonstrates understanding of disease process, treatment plan, medications, and discharge instructions Outcome: Progressing Problem: Potential for Compromised Skin Integrity Goal: Skin integrity is maintained or improved Outcome: Progressing Goal: Nutritional status is improving Outcome: Progressing Problem: Urinary Incontinence Goal: Perineal skin integrity is maintained or improved Outcome: Progressing Problem: Bowel Incontinence Goal: Perineal Skin Integrity is Maintained or Improved Outcome: Progressing Problem: Pain Goal: Patient's pain/discomfort is manageable Outcome: Progressing * Plan of Care - Li Muñoz RN - 07/02/2019 7:39 PM CDT Problem: Infection Goal: Absence of infection and prevention of transmission during hospitalization Outcome: Progressing Problem: Fall Safety Goal: Free from fall injury Outcome: Progressing Problem: Knowledge Deficit Goal: Patient and/or family demonstrate readiness to learn Outcome: Progressing Goal: Patient and/or family verbalizes understanding of education, and/or performs desired skill Outcome: Progressing Problem: Discharge Planning Goal: Discharge to home or other facility with appropriate resources Outcome: Progressing Goal: solar sales associate will develop a plan to decrease their burden and enhance comfort in role Outcome: Progressing Problem: Knowledge Deficit Goal: Patient/family/caregiver demonstrates understanding of disease process, treatment plan, medications, and discharge instructions Outcome: Progressing Problem: Potential for Compromised Skin Integrity Goal: Skin integrity is maintained or improved Outcome: Progressing Goal: Nutritional status is improving Outcome: Progressing Problem: Urinary Incontinence Goal: Perineal skin integrity is maintained or improved Outcome: Progressing Problem: Bowel Incontinence Goal: Perineal Skin Integrity is Maintained or Improved Outcome: Progressing Problem: Pain Goal: Patient's pain/discomfort is manageable Outcome: Progressing * Plan of Care - Raquel Rae RN - 07/02/2019 3:20 PM CDT Pt resting in bed at this time. Denies chest pain/SOB/resp distress. S/c per schedule. Up to chair for a while earlier today. Pt noted to have some movents to BLE. Will cont to monitor. * Plan of Care - Sabrina Naranjo RN - 07/02/2019 3:25 AM CDT Problem: Infection Goal: Absence of infection and prevention of transmission during hospitalization Outcome: Progressing Problem: Fall Safety Goal: Free from fall injury Outcome: Progressing Problem: Knowledge Deficit Goal: Patient and/or family demonstrate readiness to learn Outcome: Progressing Goal: Patient and/or family verbalizes understanding of education, and/or performs desired skill Outcome: Progressing Problem: Discharge Planning Goal: Discharge to home or other facility with appropriate resources Outcome: Progressing Goal: solar sales associate will develop a plan to decrease their burden and enhance comfort in role Outcome: Progressing Problem: Knowledge Deficit Goal: Patient/family/caregiver demonstrates understanding of disease process, treatment plan, medications, and discharge instructions Outcome: Progressing Problem: Potential for Compromised Skin Integrity Goal: Skin integrity is maintained or improved Outcome: Progressing Goal: Nutritional status is improving Outcome: Progressing Problem: Urinary Incontinence Goal: Perineal skin integrity is maintained or improved Outcome: Progressing Problem: Bowel Incontinence Goal: Perineal Skin Integrity is Maintained or Improved Outcome: Progressing Problem: Pain Goal: Patient's pain/discomfort is manageable Outcome: Progressing * OT Treatment Note - Rosemary Murphy OT - 07/01/2019 10:35 AM CDT Occupational Therapy Treatment Patient Name: Ajit Tyler Patient Birthdate: 1960 Patient Subjective Report - Pt. Agreeable to therapy this date. Pain Assessment Pain Context: Therapy Assessment Prior to Treatment (07/01/191034) Pain Assessment: NRS 0-10 (07/01/191034) Pain Score: 3 (07/01/191034) Pain Type: Acute pain (07/01/191034) Pain Location: Shoulder (07/01/191034) Pain Orientation: Right, Left (07/01/191034) Pain Descriptors: Aching (07/01/191034) Pain Onset: Ongoing (07/01/191034) Pain Interventions Education Provided: Patient (07/01/191208) Non-Pharmacologic Pain Interventions: Distractions, Exercise/Activity, Position/Reposition, Relaxation, Shower, Rest (07/01/191208) Emotional/Spiritual Pain Interventions: Emotional Support (07/01/191208) ADL Status: Bed, Chair, Wheelchair Transfer: Maximal Assistance Bed/Chair Transfer to: Wheelchair Bed/Chair Transfer from: Bed Bed/Chair Transfer Technique: Stand pivot Assistive Devices Used: No device Bed/Chair Transfer Comments: Pt. nahun improved force production from bed surface with improved BLEstrength. Pt. tessieos good carryover for body mechanics to achieve stand and for safe descent to sit.Pt. tessieos improved BLE coordination this for ability to assist with pivot to w/c to R this . Max assist for standing balance this date. Bed Mobility: Performed on bed Bed Mobility Level of Assistance: Minimal Assistance and Maximal Assistance Bed Mobility Comment: Pt. Nahun improved strength with rolling this - pt. Provided assist to manage RLE into hip and knee flexion for improved momentum to rolling to L side. Pt. Tessieos improved core strength with ability to complete roll to L side- requires minimal assist to achieve this date. Pt. Tessieos increased independence with transition to short sit EOB- pt. Tessieos improved trunk strength with ability to assist with trunk. Pt. Requires maximal assist this date with assist required to manage BLE due to increased fatigue this date. Neuromuscular Re-education: Neuromuscular Re-education: Yes Functional Movement Patterns: Pt. Participates in neuromuscular re-education this utilizing functional electrical stimulation (FES) bike this in order to address and improve BUE strength, ROM, coordination, and motor function for improved functional use for increased independence with ADLs. Electrical stimulation utilized to facilitate muscle contraction and functional movement patternsof bilateral scapular stabilizers, anterior deltoids, posterior deltoids, biceps, tricep, and wristextensors through forward The below stimulation was applied to the following muscle groups: L scapular stabilzers: 22 mA L anterior deltoid: 17 mA L posterior deltoid: 11 mA L bicep: 12 mA L tricep 14 mA L wrist extensor: 13 mA R scapular stabilizers: 14 mA R anterior deltoid: 11 mA R posterior deltoid: 15 mA R bicep: 14 mA R tricep 14 mA R wrist extensor: 11 mA Pt. Participates total duration of 26 minutes, completing 2.94 miles, demonstrating 0% asymmetry with participation. Pt. Demonstrates good UE ROM for participation with no tone or spasticity noted. Pt. Demos improved comfort and decreased shoulder pain with participation. Pt. Demonstrates good tolerance with participation with no pain or discomfort noted. No irritation or redness noted to skin with placement and removal of stimulation pads. Maximal increased time required for skilled setup and muscle testing this date. Average Power: .1 W. Pt. Provided verbal encouragement for active contraction with participation. Demos improved BUE strength this date. Treatment, Outcomes and Plan: OT Narrative:: Pt. Demonstrates improved coordination for increased safety and independence with functional transfers and bed mobility this date. Pt. Would benefit from continued participation in intensive OT rehabilitation services in order to address standing balance, BUE coordination, strength, and ROM, and functional strength and endurance for increased independence with ADLs and functional transfers. Pt. Seated in w/c with pelvic positioning belt and alarm active. ECU call light within reach. OT Treatment Outcomes:: Safety device reapplied, Patient tolerated treatment well, Patient is progressing toward STG(s), Goals met for this session and Improved ability to perform functional transfers OT Summary Plan of Care: Continue with current plan of care Pain Evaluation and Follow-up Pain Reassessment: 3 (07/01/19 1208) Nursing notified of patient's pain assessment: Primary Nurse (07/01/19 1209) Therapy Minutes Individual Concurrent Co-Treat Time In : 1035 Time Out: 1209 Breaks/Pauses (Min): 0 mins Total Time with Patient (Min): 94 min Missed Minutes : 4 ROSEMARY MURPHY OT 07/01/2019 * Plan of Care - Susana Addison RD - 07/01/2019 10:21 AM CDT Problem: Inadequate or Predicted Suboptimal Energy or Oral Intake Description Related to: Decreased ability to consume sufficient energy As Evidenced By: meal intakes <50% Goal: Clinical Nutrition Goal Outcome: Progressing Flowsheets Taken 06/10/[address] Primary Goal: Adequate Meals and Snack/Oral Nutrition Supplement Intake Primary Indicator/Monitor: 50 - 100% Secondary Goal: Weight Maintenance Secondary Indicator/Monitor: No weight loss Tertiary Goal: Other (wound healing) Tertiary Goal Progress: New Tertiary Indicator/Monitor: incision to heal Taken 06/20/[address] Primary Goal Progress: Ongoing Secondary Goal Progress: Ongoing Intervention: Medical Nutrition Therapy Interventions Flowsheets (Taken 06/10/[address]) Meals and Snacks: General/healthful diet Supplements: Commercial beverage/Oral Nutrition Supplement (Ensure Enlive BID, 350 kcal, 20 grams protein each) Coordination of Nutrition Care: Other (staff to feed patient) * PT Treatment Note - Yesi Kellogg PT - 07/01/2019 9:03 AM CDT PT Treatment Patient Name: Ajit Tyler Patient Birthdate: 1960 Patient Subjective Report - Pt lying in bed at start of session, agreeable to participation in therapy session. Pain Assessment Pain Context: Therapy Assessment Prior to Treatment (07/01/19902) Pain Assessment: NRS 0-10 (07/01/19902) Pain Score: 3 (07/01/19902) Pain Type: Chronic pain (07/01/19902) Pain Location: Shoulder (07/01/19902) Pain Orientation: Right, Left (07/01/19902) Pain Descriptors: Aching, Discomfort (07/01/19902) Pain Onset: Ongoing (07/01/19902) Pain Frequency: Constant/continuous (07/01/19902) Aggravating Factors: Activity Duration, Positioning (07/01/19902) Functional Impact: Walking, Turning (07/01/19902) Pre-therapy pain intervention required: Patient expressed pain is tolerable/able to proceed (07/01/19902) Pain Interventions Education Provided: Patient (07/01/19902) Non-Pharmacologic Pain Interventions: Distractions, Exercise/Activity, Position/Reposition, Rest (07/01/19902) Emotional/Spiritual Pain Interventions: Emotional Support (07/01/19902) Bed Mobility: Performed on bed, Short sit to - from supine and Rolling side to side Bed Mobility Level of Assistance: Minimal Assistance and Maximal Assistance Bed Mobility Comment: Min A at trunk for rolling to L side with use of RLE to aide in force production, manages LEs off EOB without assist. Requires total A for management of trunk and LEs during transition sitting EOB to supine due to incontinence of bowel. Pt is able to bridge hips up with BLE upon reaching supine to allow for removal of brief, rolling to L side for pericare. Surface: Even surface and Indoor Ambulation Level of Assistance: Total Assistance/Dependent and Maximal Assistance Distance (feet): 18 Gait Analysis: Ambulates 5 + 5 feet without AD and max-total A x 1 on L side for weight shifting and foot placement with w/c follow for safety. Pt demonstrates increased difficulty with placing RLE this date, requiring sitting on first two bouts due to scissoring placement and stepping on opposite LE. On third bout, ambulate 8 feet with mod-max A x 2 B and assist on R side for occasionally aiding infoot placement to prevent scissoring- however able to place without assist after initial 4 steps with improved carryover of placement. Requires sitting due to fatigue and L knee buckling. On fourth bout, ambulate 18 feet with mod A x 1 on L side for weight shifting and balance. Pt is occasionally scissoring with L foot placement, however able to correct with cues to widen SOPHY and increased time. Demonstrates narrow SOPHY, B genu recurvatum, flexed fwd trunk, scissoring gait, and slow emily. Transfer to 1: Stand Transfer from 1: Sit Technique 1: Sit to stand Transfer Level of Assistance 1: Maximal Assistance and Moderate Assistance Trials/Comments1: Requires max A for force production when standing from 22 height of w/c surface,however able to stand from 26 surface height with fluctuating mod-max A when given increased time Transfer to 2: Wheelchair Transfer from 2: Bed Technique 2: Stand pivot Transfer Level of Assistance 2: Maximal Assistance Trials/Comments 2: Max A for balance and weight shifting during transfer to w/c without UE support Therapeutic Activities and Neuromuscular Re-education: THER EX: performs blocked practice STS x 5 reps from 26 surface height for carryover to improved LE strength and independence with functional transfers- requires fluctuating mod- max A throughout due to fatigue and increased time to complete. Additionally performs x 3 reps from 22 surface height of w/c with max A for first 2 reps and mod A for final rep. PT Treatment Outcomes:: Cues needed for safety, Goals met for this session, Patient is progressing toward STG and Patient tolerated session fair PT Summary:: Session focus on ambulation, functional transfers, and LE strengthening. Pt initially requires increased assistance for ambulation due to scissoring/adducting gait pattern, however able to correct without assist after initial manual corrections made by therapist. Increased fatigue noted today, as pt states he performed the FES bike yesterday and is feeling sore from this. Trial use of soft touch call light and pt is able to squeeze and activate call light 3/3 attempts, however requires placed in between fingers prior to initiation due to weakness at wrist extensors. Would benefitfrom slight improvements to strength in wrist extensors before using time analysis clerk for activation of call light system. Patient lying in bed at completion of session with OT present for continuation of therapies. PT Summary Plan of Care: Continue with current plan of care Pain Evaluation and Follow-up Pain Reassessment: 3 (07/01/19 1033) Nursing notified of patient's pain assessment: Primary Nurse (07/01/19 1033) Therapy Minutes Individual Concurrent Co-Treat Time In : 0903 Time Out: 1033 Breaks/Pauses (Min): 0 mins Total Time with Patient (Min): 90 min Missed Minutes : 0 YESI KELLOGG, PT 07/01/2019 * Plan of Care - Leila Gomez RN - 07/01/2019 8:58 AM CDT Problem: Infection Goal: Absence of infection and prevention of transmission during hospitalization Outcome: Progressing Problem: Fall Safety Goal: Free from fall injury Outcome: Progressing Problem: Knowledge Deficit Goal: Patient and/or family demonstrate readiness to learn Outcome: Progressing Goal: Patient and/or family verbalizes understanding of education, and/or performs desired skill Outcome: Progressing Problem: Discharge Planning Goal: Discharge to home or other facility with appropriate resources Outcome: Progressing Goal: solar sales associate will develop a plan to decrease their burden and enhance comfort in role Outcome: Progressing Problem: Knowledge Deficit Goal: Patient/family/caregiver demonstrates understanding of disease process, treatment plan, medications, and discharge instructions Outcome: Progressing Problem: Potential for Compromised Skin Integrity Goal: Skin integrity is maintained or improved Outcome: Progressing Goal: Nutritional status is improving Outcome: Progressing Problem: Urinary Incontinence Goal: Perineal skin integrity is maintained or improved Outcome: Progressing Problem: Bowel Incontinence Goal: Perineal Skin Integrity is Maintained or Improved Outcome: Progressing Problem: Pain Goal: Patient's pain/discomfort is manageable Outcome: Progressing * Plan of Care - Nini Nava RN - 06/30/2019 9:13 PM CDT Problem: Infection Goal: Absence of infection and prevention of transmission during hospitalization Outcome: Progressing Problem: Fall Safety Goal: Free from fall injury Outcome: Progressing Problem: Knowledge Deficit Goal: Patient and/or family demonstrate readiness to learn Outcome: Progressing Goal: Patient and/or family verbalizes understanding of education, and/or performs desired skill Outcome: Progressing Problem: Discharge Planning Goal: Discharge to home or other facility with appropriate resources Outcome: Progressing Goal: solar sales associate will develop a plan to decrease their burden and enhance comfort in role Outcome: Progressing Problem: Knowledge Deficit Goal: Patient/family/caregiver demonstrates understanding of disease process, treatment plan, medications, and discharge instructions Outcome: Progressing Problem: Potential for Compromised Skin Integrity Goal: Skin integrity is maintained or improved Outcome: Progressing Goal: Nutritional status is improving Outcome: Progressing Problem: Urinary Incontinence Goal: Perineal skin integrity is maintained or improved Outcome: Progressing Problem: Bowel Incontinence Goal: Perineal Skin Integrity is Maintained or Improved Outcome: Progressing Problem: Pain Goal: Patient's pain/discomfort is manageable Outcome: Progressing * Plan of Care - Cinthya Urena RN - 06/30/2019 2:58 PM CDT Problem: Infection Goal: Absence of infection and prevention of transmission during hospitalization Outcome: Progressing Problem: Fall Safety Goal: Free from fall injury Outcome: Progressing Problem: Knowledge Deficit Goal: Patient and/or family demonstrate readiness to learn Outcome: Progressing Goal: Patient and/or family verbalizes understanding of education, and/or performs desired skill Outcome: Progressing Problem: Discharge Planning Goal: Discharge to home or other facility with appropriate resources Outcome: Progressing Goal: solar sales associate will develop a plan to decrease their burden and enhance comfort in role Outcome: Progressing Problem: Knowledge Deficit Goal: Patient/family/caregiver demonstrates understanding of disease process, treatment plan, medications, and discharge instructions Outcome: Progressing Problem: Potential for Compromised Skin Integrity Goal: Skin integrity is maintained or improved Outcome: Progressing Goal: Nutritional status is improving Outcome: Progressing Problem: Urinary Incontinence Goal: Perineal skin integrity is maintained or improved Outcome: Progressing Problem: Bowel Incontinence Goal: Perineal Skin Integrity is Maintained or Improved Outcome: Progressing Problem: Pain Goal: Patient's pain/discomfort is manageable Outcome: Progressing * PT Treatment Note - Lisa Negro PT - 06/30/2019 1:00 PM CDT PT Treatment Patient Name: Ajit Tyler Patient Birthdate: 1960 Patient Subjective Report - Pt is sitting in chair upon arrival of PT. He is agreeable to participate in session. Pain Assessment Pain Context: Therapy Assessment During Treatment (06/30/191299) Pain Assessment: NRS 0-10 (06/30/191299) Pain Score: 7 - Severe Pain (06/30/191299) Pain Type: Acute pain (06/30/191299) Pain Location: Shoulder, Neck (06/30/191299) Pain Orientation: Posterior (06/30/191299) Pain Descriptors: Aching (06/30/191299) Pain Onset: Ongoing (06/30/191299) Pain Frequency: Constant/continuous (06/30/191299) Aggravating Factors: Activity Duration (06/30/191299) Alleviating Factors: Tylenol (05/14/20 1300) Functional Impact: Self care, Turning, Sleep (06/30/19 1300) Pain Interventions Education Provided: Patient (06/30/191299) Non-Pharmacologic Pain Interventions: Distractions, Exercise/Activity, Relaxation, Rest (06/30/19 1300) Emotional/Spiritual Pain Interventions: Emotional Support, Empathetic Discussion (06/30/19 1300) Pain Consults Initiated or Completed: Rehab (06/30/191299) Overall Cognitive Status: Within Functional Limits Therapeutic Activities and Neuromuscular Re-education: Perform FES LE ergometer this session for BLE to maintain tissue extensibility/ROM, reducing atrophy, increase localized blood flow, improve LE sensation, and improve strength needed for ambulation and endurance. The following parameters were used: RLE: Channel 1: right quads- 45 mA, Channel 2: right hamstrings- 39 mA, Channel 3: right gastroc- 37 mA, Channel 4: right tibialis- 42 mA. LLE: Channel 1: left quads- 47 mA, Channel 2: left hamstrings- 49 mA, Channel 3: left gastroc- 37 mA, Channel 4: left tibialis- 42 mA. Pt tolerates 1 minutewarm-up and 1 minute cool-down, tolerating 15 minutes of stimulation with cycling. Pt maintains B shoes donned throughout. Tolerates session well. No adverse skin reactions noted after doffing of electrodes. Distance traveled: 2.82 mi (2.62 previously), energy expended: 3.7 kcal (0.8), average power: 10.8 W (4.2), average asymmetry: 2 % L (4% L). Extra time taken for set up. Were respiratory Interventions provided?: No PT Treatment Outcomes:: Patient is progressing toward STG, Patient tolerated treatment well and Safety device reapplied PT Summary:: Pt tolerates session well. FES bike is performed to assist with LE muscle activation, blood flow, and ROM. He is left in chair with call light within reach, seatbelt alarm on, and reclined. PT Summary Plan of Care: Continue with current plan of care Pain Evaluation and Follow-up Response to Therapy Interventions: Improved activity tolerance, Improved positioning, Improved functional status (06/30/19 135) Pain Reassessment: 6 (06/30/19 135) Nursing notified of patient's pain assessment: Primary Nurse (06/30/19 1359) Therapy Minutes Individual Concurrent Co-Treat Time In : 1300 Time Out: 1359 Breaks/Pauses (Min): 0 mins Total Time with Patient (Min): 59 min Missed Minutes : 14 LISA NEGRO PT 06/30/2019 * PT Treatment Note - Aric Martinez, PT - 06/30/2019 11:55 AM CDT PT Treatment Patient Name: Ajit Tyler Patient Birthdate: 1960 Patient Subjective Report - Pt. Is agreeable to therapy on this date Pain Assessment Pain Assessment: NRS 0-10 (06/30/19 111) Pain Score: 4 - Moderate Pain (06/30/19 111) Pain Type: Acute pain (06/30/19 111) Pain Location: Shoulder, Neck(both shoulders) (06/30/19 111) Vital Signs Pulse: 87 (06/30/19 111) Heart Rate Source: Monitor (06/30/19 111) BP: 118/72 (06/30/19 111) MAP (mmHg): 87.33 (06/30/19 111) BP Location: Left arm (06/30/191116) BP Method: Automatic (06/30/19 111) Patient Position: Sitting (06/30/19 111) Oxygen Context: Sitting (06/30/19 111) SpO2: 96 % (06/30/19 111) O2 Device: None (Room air) (06/30/19 111) Overall Cognitive Status: Within Functional Limits Surface: Indoor and Tile Assistive Device: Hand Held Assist (mod assist of 2 with W/C follow ) : right arm sling Ambulation Level of Assistance: Moderate Assistance Distance (feet): 14 Gait Analysis: 14 feet in room x 1 8 feet in room x 1 Mod assist of 2 with W/C follow for ambulation. Pt. Mod assist for balance and stability, and knee block only at the end of walk to stand for 2 minutes for depends brief change after bowel movement. Pt. Demonstrates with inconsistent gait with some step slightly adducting to meet or cross midline, step Inconsistent step length and landing with poor heel initial contact. Pt. Was able to walk without knees buckling today until the end of 8 foot walk during two minute standing when briefs change was needed. Transfer to 1: Stand and Wheelchair Transfer from 1: Stand and Wheelchair Technique 1: Stand to sit and Sit to stand Transfer Level of Assistance 1: Maximal Assistance and Moderate Assistance Trials/Comments1: 3 trials mod assist of 2 for force production and to maintain balance and occasional knee buckling. RLE: Full weight-bearing LLE: Full weight-bearing RUE: Full weight-bearing LUE: Full weight-bearing Endurance: Good Activity comment: Pt. Is able to stand for two minutes for brief change after bowel movement without symptoms of hypotension and poor endurance. Pt. Does need knee blocking and mod assist from 2 withthird to change and clean pt. Right UE in sling Dynamimc Standing Balance: Lateral lean (lateral trunk leans with bilateral support from 2 max assist) Dynamic Standing Level of Assistance: Maximal Assistance (max of 2) Dynamic Standing # of Mins/Comments: < 5 mins Therapeutic Activities and Neuromuscular Re-education: Pt. Performed lateral weight shifting in stand with good tolerance and no significant changes in blood pressure nor is pt. Symptomatic of hypotension blood pressure immediately after lateral weight shifting 2 trails 30 seconds is 124/74. PT Treatment Outcomes:: Improved ambulation performance, Increasing strength, Patient tolerated treatment well and Patient is progressing toward STG PT Summary:: Pt. tolerated session well without abnormal symptoms of hypotension or exercise intolerance. Pt. Walked 14 feet in room x 1 and 8 feet in room x 1 with Mod assist of 2 with W/C follow for ambulation. Pt. Mod assist for balance and stability, and knee block only at the end of walk to stand for 2 minutes for depends brief change after bowel movement. Pt. Demonstrates with inconsistent g ait with some step slightly adducting to meet or cross midline, step Inconsistent step length and landing with poor heel initial contact. Pt. Was able to walk without knees buckling today until the end of 8 foot walk during two minute standing when briefs change was needed. PT Summary Plan of Care: Continue with current plan of care Therapy Minutes Individual Concurrent Co-Treat ARIC MARTINEZ, PT 06/30/2019 * OT Treatment Note - Eddie FranciscoALEX - 06/30/2019 11:45 AM CDT Occupational Therapy Treatment Patient Name: Ajit Tyler Patient Birthdate: 1960 Patient Subjective Report - Patient reports that he has not been moved or stretched and is ready tohave his arms moved. Pain Assessment Pain Context: Therapy Assessment Prior to Treatment (06/30/19948) Pain Score: 4 - Moderate Pain (06/30/19948) Pain Type: Chronic pain (06/30/19948) Pain Location: Shoulder (06/30/19948) Pain Descriptors: Sharp (06/30/19948) Pre-therapy pain intervention required: Patient expressed pain is tolerable/able to proceed(Patientdid not want therapist to notify nurse. He said he was fine and wanted to proceed with therapy.) (06/30/19948) OT Therapeutic Activity: Therapeutic Exercise: Patient participated in PROM of digits 1-5 in bilateral hands to facilitate pain free functional passive grasp and release. Therapist unable to passively flex digits 2-5 to palm. He reported mild pain with PROM. Patient participated in PROM of bilateral elbows. R elbow presents with increased pain and decreased pain-free ROM. Patient demonstrated increased tolerance within treatment session. Patient participated in PROM of bilateral shoulders. Patient initially reported pain at ~70 degreesof flexion and abduction in bilateral shoulders. Patient tolerated to ~120 degrees of flexion and ~100 degrees of abduction (pain free) following ROM and manual therapy. Joint compression performed for proprioceptive input. Patient reported decreased pain with joint compression. A/P glides to bilateral glenohumeral joints performed at Grade II to facilitate pain-free PROM. Patient participated in bilateral pec major soft tissue mobilization/stretch (superfifical/moderate) to facilitate open posture and improved quality of movement. Treatment, Outcomes and Plan: OT Narrative:: Patient participated in ROM, stretching, and manual therapy of bilateral UE's at this date secondary to increased pain complaints and increased stiffness. Patient demonstrated decreased PROM of all digits, bilateral elbows, and bilateral shoulders. Following session patient demonstrated increased pain- free PROM of bilateral UE's. Patient will continue to benefit from skilled therapy services to return to home at maximal independence. Patient remained laying in bed at end of session with bed alarm activated and modified call light in place. OT Treatment Outcomes:: Safety device reapplied and Patient tolerated treatment well OT Summary Plan of Care: Continue with current plan of care Therapy Minutes Individual Concurrent Co-Treat Time In : 944 Time Out: 1030 Total Time with Patient (Min): 45 min Missed Minutes : 0 EDDIE FRANCISCO OT 06/30/2019 * OT Treatment Note - Rosemary Murphy OT - 06/30/2019 10:30 AM CDT Occupational Therapy Treatment Patient Name: Ajit Tyler Patient Birthdate: 1960 Patient Subjective Report - Pt. Agreeable to therapy this . Pain Assessment Pain Context: Therapy Assessment Prior to Treatment (06/30/19 1030) Pain Assessment: NRS 0-10 (06/30/19 1030) Pain Score: 4 - Moderate Pain (06/30/19 1030) Pain Type: Acute pain (06/30/19 1030) Pain Location: Neck (06/30/19 1030) Pain Orientation: Posterior (06/30/19 1030) Pain Descriptors: Aching (06/30/19 1030) Pain Interventions Education Provided: Patient (06/30/19 1114) Non-Pharmacologic Pain Interventions: Distractions, Relaxation, Position/Reposition, Rest () Emotional/Spiritual Pain Interventions: Emotional Support (06/30/19 1114) ADL Status: Lower Body Dressing Where Assessed: Supine in bed Lower Body Dressing Comments: Assist provided to don shoes and compression stockings on BLE this date in preparation for functional transfer for increased safety with traction of shoes on floor surface. Pt. demos good carryover with learned techniques to achieve bridge for clearance of buttocks to assist with donning of pants this date. Bed, Chair, Wheelchair Transfer: Moderate Assistance Bed/Chair Transfer to: Wheelchair Bed/Chair Transfer from: Bed Bed/Chair Transfer Technique: Squat pivot Assistive Devices Used: No device Bed/Chair Transfer Comments: Pt. completes squat pivot transfer this date with increased fatigue ofBLE- pt. demos improved trunk control and ability to achieve forward trunk flexion for improved balance. Max assist for squat pivot transfer, emerging to moderate assist with improved force production through BLE and with improved sitting balance. Bed Mobility: Performed on bed Bed Mobility Comment: Pt. Requires assist to manage trunk and to manage BLE to EOB for transition to semi-supine to short sit EOB. Pt. Demos improved ability to manage BLE for participation in bed mobility. OT Therapeutic Activity: Therapeutic Exercise: Pt. Seated in w/c- pt. Participates in various BUE strengthening in order to address and improve BUE strength, coordination, and ROM for improved functional use in support of pt. Goals for increased independence with ADLs and functional transfers. Pt. Completes the following BUE therapeutic exercise: Pt. Completes shoulder flexion/extension 10 reps x 2 sets. Pt. Begins in upright sitting with 90 degrees elbow flexion and forearm supported on table surface- cloth media utilized to decrease resistance for improved ROM for participation. Pt. Demos improved shoulder strength with ability to achieveBUE shoulder flexion with minimal assist initially to achieve desired ROM and improving to no assist required. With participation, pt. Achieves ~15 degrees ROM, demoing improved strength with abilityto achieve improved ROM against gravity. Pt. Seated in w/c- begins in neutral shoulder position with elbow 90 degrees flexion. Pt. Completesinternal rotation against min-mod resistance 5 reps x 1 set each UE. Pt. Demos decreased compensatory trunk movement with participation, demoing improved bilateral shoulder strength. Pt. Demos fatigues with participation. Pt. Noted to have active bicep flexion of R bicep during participation. Pt seated in w/c- pt. Positioned in gravity eliminated position for elbow flexion/extension. Pt. Demos elbow flexion/extension 5 reps x 2 sets each UE, demoing active bicep contraction initially and requiring AAROM to achieve full desired ROM to fist against chest. Pt. Actively contracts tricep to achieve elbow extension from chest, demoing improved strength with ability to achieve full desired ROM against moderate resistance for R tricep and minimal resistance against L tricep. Pt. Participates in active wrist extension against gravity 5 reps x 1 set each UE. Pt. Positioned in wrist flexion with assist of gravity, demoing improved bilateral wrist strength with ability to achieve active wrist extension against gravity. Pt. Continues to demo improved bilateral wrist strength with decreased fatigue and improved ROM with participation. Pt. Provided education regarding therapy ball to address and improve finger flexion to improve functional grasp- verbalizes understanding. Pt. Unable to complete full functional grasp around therapy ball, however demos improved bilateral finger flexor strength with improved ROM for improved functional grasp. Pt. Completes against gravity, demoing improved BUE strength. Treatment, Outcomes and Plan: OT Narrative:: Pt. Demos improved BUE strength in all muscle groups this date with participation intherapeutic exercise. Pt. Would benefit from continued participation in intensive OT rehabilitationservices in order to address BUE coordination, strength, and ROM, sitting balance, and functional strength and endurance for increased independence with ADLs and functional transfers. OT Treatment Outcomes:: Safety device reapplied, Patient tolerated treatment well, Patient is progressing toward STG(s) and Goals met for this session OT Summary Plan of Care: Continue with current plan of care Pain Evaluation and Follow-up Pain Reassessment: 5 (06/30/19 1114) Nursing notified of patient's pain assessment: Primary Nurse (06/30/19 1114) Therapy Minutes Individual Concurrent Co-Treat Time In : 1030 Time Out: 1115 Breaks/Pauses (Min): 0 mins Total Time with Patient (Min): 45 min Missed Minutes : 0 ROSEMARY MURPHY OT 06/30/2019 * OT Treatment Note - Rosemary Murphy OT - 06/29/2019 12:48 PM CDT Occupational Therapy Treatment Patient Name: Ajit Tyler Patient Birthdate: 1960 Patient Subjective Report - Pt. Agreeable to therapy this date. Pain Assessment Pain Context: Therapy Assessment Prior to Treatment (06/29/19 124) Pain Assessment: NRS 0-10 (06/29/19 124) Pain Score: 4 - Moderate Pain (06/29/19 124) Pain Type: Acute pain (06/29/19 124) Pain Location: Shoulder (06/29/19 124) Pain Orientation: Left, Right (06/29/19 124) Pain Descriptors: Aching (06/29/19 124) Pain Interventions Education Provided: Patient (06/29/19 1839) Non-Pharmacologic Pain Interventions: Distractions, Exercise/Activity, Position/Reposition, Relaxation, Rest (06/29/191516) Emotional/Spiritual Pain Interventions: Emotional Support (06/29/191516) ADL Status: Eating: Maximal Assistance Feeding Comments: Pt. educated on use of universal cuff with wrist support for future participationin self-feeding. Pt. provided assist to don and skilled demonstration for use and placement of spoon into u-cuff. Pt. verbalizes understanding. Requires maximal assist to bring spoon to mouth this date with participation in therapeutic activity- see therapeutic activity Lower Body Dressing Comments: Multipodus boots applied to BLE this date for improved skin integrityand for prevention of pressure injury to bilateral heel. Bed, Chair, Wheelchair Transfer: Moderate Assistance and Maximal Assistance Bed/Chair Transfer Comments: See transfer narrative Transfer Training: Transfer Narrative: Pt. Completes stand pivot transfer x 3 occasions (w/c > bed to L, bed to w/shopping inspector R, w/c to bed to L). Pt. Demos improved force production through BLE this date to achieve stand (moderate assist) all 3 occasions. With increased fatigue, pt. Demos increased difficulty with advancement of BLE for pivot transfer. Pt. Requires maximal assistance to pivot to transfer surface. Pt. Requires bilateral knee block for increased safety with increased LE fatigue this date. Pt. Demos improved core strength with improved ability to achieve forward trunk flexion for improved postural control with functional transfer. Bed Mobility Comment: Pt. Requires max assist to achieve short sit EOB from supine with assist to manage trunk- pt. Demos improved BLE management for bed mobility. With increased fatigue at end of session- assist of 2nd for trunk management to transition to supine from short sit for increased safety. Pt. Requires assist for management of BLE to bed surface. Pillows utilized for improved UE positioning for improved comfort and for joint integrity in supinebed level at end of session. Pt. Demos improved R shoulder strength with ability to manage RUE from chest while supine in bed- demos improved ROM with increased strength. OT Therapeutic Activity: Therapeutic Exercise: Pt. Seated in w/c- pt. Participates in therapeutic activity in order to address and improve bilateral wrist extensor strength for improved UE function for increased independencewith ADLs and functional transfers. Tillman point of control provided at wrist to achieve wrist flexion- pt. Actively extends wrist against gravity 5 reps x 2 sets each UE, demoing improved strength withability to achieve increased ROM with increased strength with ability to achieve against gravity. Pt. Demos decreased compensatory movement this date with improved strength. Pt. Completes active finger flexion this date, demoing improved strength with ability to achieve finger flexion of digits 1-5 with improved ROM- completes bilaterally. Therapeutic Activity: Pt. Seated in w/c- pt. Participates in therapeutic activity with ROM utilizing [employer] in order to address and improve RUE ROM and strength for improved functional use of RUE to increase independence with ADLs and functional transfers. Pt. Placed in gravity eliminated plane for R shoulder horizontal adduction/abduction and elbow flexion/extension. Pt. Demos improved R bicep strength with improved ROM with verbal directive of bringhand to mouth . Pt. Educated on participation in feeding with use and provided education on AE for i ncreased independence. Participates in simulated feeding task this date- pt. Demos improved abilityto bring spoon closer to mouth and requires moderate assist to manage spoon to mouth through remainder or desired ROM. Pt. Completes desired motion 10 reps for improved strengthening to increase independence with feeding. Pt. Participates in strengthening with neuromuscular re-education. See modalities . Participates duration of 15 minutes, demoing improved muscle strength with decreased fatigue noted with participation in electrical stimulation. With participation, pt. Demos improved R bicep strength with improvedROM with application of stimulation. Pt. Demos improved ability to actively contract bicep with application of stimulation demoing improved strength. Neuromuscular Re-education: Neuromuscular Re-education: Yes Comments: No irritation or redness noted with application or removal of stimulation pads for electrical stimulation. Modalities: Modalities: Yes RUE Electrical Stimulation Location: Upper arm RUE Electrical Stimulation Action: Elbow flexion RUE Electrical Stimulation Parameters: Nigerien electrial stimulation, 5/5 cycle time with 5 second ramp. 50 BPS. 37 mA stimulation applied to R bicep for facilitation of R bicep for elbow flexion. With application, pt. tessieos improved muscle contraction for participation in strengthening. Pt. provided verbal directive to actively contract with application of stimulation- demos good understanding and ability to complete. RUE Electrical Stimulation Goals: Strength and Neuromuscular facilitation Treatment, Outcomes and Plan: OT Narrative:: Pt. Demonstrates improved strength of RUE this date, demoing improved strength and ROM of bilateral wrist extensors, finger flexors, and shoulders. Pt. Demonstrates improved R bicep strength for elbow flexion with participation in therapeutic activity. Pt. demoing improved purposefulmovement of BUE with improved BUE strength. Pt. Demos maximal improvement in core strength this date with improved ability to achieve forward trunk flexion for participation in functional transfers. Pt. Would benefit from continued participation in intensive OT rehabilitation services in order to address sitting balance, BUE coordination, strength, and ROM, and functional strength and endurance for increased independence with ADLs and functional transfers. Pt. Supine in bed with ECU call light within reach. OT Treatment Outcomes:: Safety device reapplied, Patient tolerated treatment well, Patient is progressing toward STG(s), Goals met for this session, Increased ROM (comment on location) and Increased strength or muscular endurance (comment on location) OT Summary Plan of Care: Continue with current plan of care Pain Evaluation and Follow-up Pain Reassessment: 6 (06/29/19 299) Nursing notified of patient's pain assessment: Primary Nurse (06/29/19 866) Therapy Minutes Individual Concurrent Co-Treat Time In : 1248 Time Out: 1517 Breaks/Pauses (Min): 54 mins Total Time with Patient (Min): 95 min Missed Minutes : 5 ROSEMARY MURPHY OT 06/29/2019 * PT Treatment Note - Yesi Kellogg, PT - 06/29/2019 10:30 AM CDT PT Treatment Patient Name: Ajit Tyler Patient Birthdate: 1960 Patient Subjective Report - Pt agreeable to participation in therapy session. Nursing photographic supervisor and [employer] present in room upon PT arrival performing pericare, as pt has had bowel movement. Pain Assessment Pain Context: Therapy Assessment Prior to Treatment (06/29/19 103) Pain Assessment: NRS 0-10 (06/29/19 103) Pain Score: 2 (06/29/191029) Pain Type: Chronic pain (06/29/19 103) Pain Location: Neck, Shoulder (06/29/19 103) Pain Orientation: Right, Left (06/29/19 103) Pain Descriptors: Aching, Burning (06/29/19 1030) Pain Onset: Ongoing (051029) Pain Frequency: Constant/continuous (06/29/191029) Aggravating Factors: Activity Duration (06/29/191029) Functional Impact: Turning (06/29/191029) Pre-therapy pain intervention required: Patient expressed pain is tolerable/able to proceed (06/29/191029) Pain Interventions Education Provided: Patient (06/29/191029) Non-Pharmacologic Pain Interventions: Distractions, Exercise/Activity, Position/Reposition, Rest (06/29/191029) Emotional/Spiritual Pain Interventions: Emotional Support (06/29/191029) Bed Mobility: Performed on bed, Short sit to - from supine and Rolling side to side Bed Mobility Level of Assistance: Minimal Assistance and Maximal Assistance Bed Mobility Comment: Min A at trunk rolling to L side with use of RLE to aide in force production;max A once positioned in L sidelying to reach sitting EOB Transfer to 1: Stand Transfer from 1: Sit Technique 1: Sit to stand Transfer Level of Assistance 1: Moderate Assistance Trials/Comments1: Mod A for force production and initiation of transfer with B knee block during transition to standing Transfer to 2: Wheelchair Transfer from 2: Bed Technique 2: Stand pivot Transfer Level of Assistance 2: Maximal Assistance Trials/Comments 2: Max A for weight shifting and occasional block to B knee to prevent buckling during stance phase. increased time for completion and cues provided for sequencing due to impaired proprioception Therapeutic Activities and Neuromuscular Re-education: LOKOMAT: Perform lokomat gait training this session for improved B LE muscle strength and muscle activation, tissue extensibility/ROM, circulation, improved weight bearing, tolerance to upright and proprioception needed for improved speeds and gait pattern during over-ground gait. Skin check performed before and after treatment with no adverse reactions noted. Maintains standing in one bouts x 2 min while donning harness. Requires max A x 1and min A of another to maintain. Patient participates in three augmented performance feedback activities (FASTER!, High Flyer, and Thirsty Hiker) for 5 minutes each to improve muscle activation, force production, motor planning and step length on BLE during swing and stance phases. Demonstrates improved high scores during Thirsty Hiker and High Flyer, showing improved speeds and muscle activation throughout. Requires 2 min rest break in between augmented performance activities due to fatigue. Education provided throughout regarding benefits and rationale of lokomat use, principles of neuroplasticity, and carryover to functional tasks. % Body Weight Support: 43% minimum (43% previously) and51% average (50%), Distance: 2,222 feet (2,197), Duration: 24:49 min (25:05), Guidance Force: average 82% (91%), Guidance Force minimum: 50% (83%), Speed: 1.0 mph average (1.0), 1.1 mph max (1.2) speed. PT Treatment Outcomes:: Compensatory strategies effectively used, Goals met for this session, Patient is progressing toward STG and Patient tolerated treatment well PT Summary:: Perform lokomat during session for improved independence with overground gait, demonstrating improved distance ambulated and decreased guidance forces tolerated throughout. Increased pain and stiffness noted in neck and B shoulders at start of session, however able to tolerate upright with use of hemisling on RUE. Patient remained up sitting in chair at end of session with pelvic positioning belt on, chair alarm in place, RN present in room for administering meds. PT Summary Plan of Care: Continue with current plan of care Therapy Minutes Individual Concurrent Co-Treat Time In : 1030 Time Out: 1204 Breaks/Pauses (Min): 0 mins Total Time with Patient (Min): 94 min Missed Minutes : 4 YESI KELLOGG, PT 06/29/2019 * Plan of Care - Jade Barnes RN - 06/29/2019 9:00 AM CDT Problem: Infection Goal: Absence of infection and prevention of transmission during hospitalization Outcome: Progressing Problem: Fall Safety Goal: Free from fall injury Outcome: Progressing Problem: Knowledge Deficit Goal: Patient and/or family demonstrate readiness to learn Outcome: Progressing Goal: Patient and/or family verbalizes understanding of education, and/or performs desired skill Outcome: Progressing Problem: Discharge Planning Goal: Discharge to home or other facility with appropriate resources Outcome: Progressing Goal: solar sales associate will develop a plan to decrease their burden and enhance comfort in role Outcome: Progressing Problem: Knowledge Deficit Goal: Patient/family/caregiver demonstrates understanding of disease process, treatment plan, medications, and discharge instructions Outcome: Progressing Problem: Potential for Compromised Skin Integrity Goal: Skin integrity is maintained or improved Outcome: Progressing Goal: Nutritional status is improving Outcome: Progressing Problem: Urinary Incontinence Goal: Perineal skin integrity is maintained or improved Outcome: Progressing Problem: Bowel Incontinence Goal: Perineal Skin Integrity is Maintained or Improved Outcome: Progressing Problem: Pain Goal: Patient's pain/discomfort is manageable Outcome: Progressing * Team Conference - EDWIN Wheeler - 06/28/2019 2:24 PM CDT Team Conference Note Date: 06/28/2019 Time: 2:32 PM Patient Name: Ajit Tyler Date of : 1960 Sex: Male Room/Bed: 215/215-1 Primary Insurance: [employer] Medicare Complete Admit Date/Time: 06/09/2019 4:28 PM Patient Active Problem List Diagnosis Date Noted ??? Cervical spinal cord injury 06/09/2019 ??? Sepsis 06/06/2019 ??? Spinal injury 05/31/2019 Team Members Present: Attendees: Chris Sousa MD, Yesi Kellogg PT, Rosemary Murphy OT, DEWIN Wheeler, Sebastien Castaneda RN, Héctor Gusman OT [employer] Feeder in Attendance: ANNA MARIE MORTON SW Patient/Family Present: Patient Present: No Patient's Family Present: No Anticipated Discharge 07/08/2019 Discharge Plan: Discharge Destination Type: Own Home Back-up Discharge Destination: Own Home Potential Barriers to Return to Prior Living (Use comments to be specific): Caregiver limitations;Capacity for self care;Mobility challenge;Architectural/environmental barrier(s);DME issue;Potential need for skills/non-skilled services;Potential need for 24 hour care;Home modification challenge Suicide Prevention: No Concerns identified at this time Medications: Current Facility-Administered Medications: ??? acetaminophen (TYLENOL) tablet 650 mg, 650 mg, Oral, Q6H PRN, Jayjay Barnes MD, 650 mg at 06/27/19 0810 ??? Apixaban (ELIQUIS) tablet 2.5 mg, 2.5 mg, Oral, 2 times per day, Jayjay Barnes MD, 2.5 mg at 06/28/19824 ??? bisacodyl (DULCOLAX) suppository 10 mg, 10 mg, Rectal, Q48H, Chris Sousa MD, 10 mg at 06/19/191828 ??? bisacodyl (DULCOLAX) suppository 10 mg, 10 mg, Rectal, Daily PRN, Chris Sousa MD ??? calcium carbonate (TUMS) chewable tablet 500 mg, 500 mg, Oral, BID with meals, Jayjay Barnes MD, 500 mg at 06/28/19824 ??? cyclobenzaprine (FLEXERIL) tablet 5 mg, 5 mg, Oral, TID PRN, Jayjay Barnes MD, 5 mg at 06/16/192122 ??? docusate sodium (COLACE) capsule 100 mg, 100 mg, Oral, 2 times per day, Catalina Patricia NP, 100 mgat 06/28/19824 ??? fluconazole (DIFLUCAN) tablet 200 mg, 200 mg, Oral, Once a day, Catalina Patricia NP, 200 mg at 06/28/19831 ??? guaiFENesin (MUCINEX) 12 hr tablet 600 mg, 600 mg, Oral, 2 times per day, Catalina Patricia NP, 600 mg at 06/28/19824 ??? ipratropium-albuterol (DUO-NEB) 0.5-2.5 mg/3 mL nebulizer solution 3 mL, 3 mL, Inhalation, GABBY, ASHANTI Stone ??? montelukast (SINGULAIR) tablet 10 mg, 10 mg, Oral, Once a day, Jayjay Barnes MD, 10 mg at 06/28/19824 ??? mupirocin (BACTROBAN) 2 % ointment, , Topical, 2 times per day, Catalina Patricia NP ??? muscle rub (ICY HOT) 10-15 % cream, , Topical, TID PRN, Chris Sousa MD ??? oxyCODONE (ROXICODONE) immediate release tablet 5 mg, 5 mg, Oral, Q4H PRN, Jayjay Barnes MD, 5 mg at 06/10/192109 ??? phenol 1.4 % 0.05 mL, 1 spray, Mouth/Throat, 3 times per day, ASHANTI Stone, 0.05 mL at 06/28/19824 ??? sodium chloride (OCEAN) 0.65 % nasal spray 1 spray, 1 spray, Each Nostril, 2 times per day, ASHANTI Stone, 1 spray at 06/28/19824 Pharmacy: Nursing Team Conference: Bladder Continent: Incontinent Bladder Devices: Adult brief;Other (comment)(straight cath) Bladder Interventions: Intermittent catheterization Bowel Continent: Incontinent Bowel Devices: Adult brief Pain: Patient denies pain Nutrition Intake: Oral Nutrition Level of Assistance: Total assistance Nutrition Interventions: Chin tuck Respiratory O2 Delivery System: None Respiratory Interventions: None Wound Rx: None Safety Status: Good safety awareness;Follows instructions Safety Interventions: Education;Performed rounding Cognitive Orientation: Person;Place;Time;Date Cognitive Deficits Observed: None Quality of Sleep: Restful PT Weekly Progress Note (Notes from 06/21/19 through 06/28/19) PT Weekly Progress Note by Yesi Kellogg PT at 06/27/2019 3:24 PM Author: Yesi Kellogg PT Service: Therapy Author Type: Physical Therapist Filed: 06/28/2019 10:09 AM Date of Service: 06/27/2019 Status: Addendum Air Pumper: Yesi Kellogg PT (Physical Therapist) Related Notes: Original Note by Yesi Kellogg PT (Physical Therapist) filed at 06/27/2019 3:34 PM PT Weekly Progress Note Patient Name: Ajit Tyler Patient Birthdate: 1960 PT CURRENT FUNCTIONAL STATUS: PT Current Functional Status: PT Current Functional Status: Mr. Tyler is making steady progress towards his meterman mobility goals as evidenced by improved ambulation distances and wheelchair propulsion. His current functionalstatus is as follows: TRANSFERS- sit to/from stand with maximal assistance of one- emerging mod A (improved from maximal assist), stand pivot transfer with maximal assistance of one (improved from max assist of one and SBA of another), stand pivot car transfer with maximal assistance of one (improved from maximal assistance of one and moderate assistance of another), lateral transfer with transfer board and moderate assistance (improved from total A previously), supine to sitting with maximal assist of one for trunkand able to manage BLE without assist (unchanged), sitting EOB to supine with total A for management of trunk and BLE (unchanged), rolling side to side with minimal assistance of one- able to manage LEs to aide in force production and momentum when pushing to side however requires min A at trunk (improved from maximal assistance), AMBULATION- ambulates 38 feet without assistive device and maximal assistance of 1 and minimal assistance of another bilaterally for weight shifting- demonstrates improved foot placement and no instances of scissoring however requires increased time for coordinating at times, with w/c follow for safety- limited in distance by BLE fatigue/weakness and ataxia, decreased trunk control (improved from12 feet with moderate to maximal assistance of 2 and assist for foot placement at times due to scissoring gait), ambulates 16 feet with maximal assistance of one and SBA of another with wheelchair follow (improved from unable to ambulate with assist of 1), unsafe to attempt uneven surfaces at this time, ELEVATIONS- unsafe to attempt at this time, 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 Current barriers include impaired standing balance, UE/LE muscle strength, ataxic movements, musclespasms/tone, tolerance to standing, activity tolerance, proprioception, and impaired to absent sensation, motor planning. Mr. Tyler would continue to benefit from further intensive skilled physical therapy services in order to continue to address these deficits and maximize independence with functional mobility and caregiver direction. Factors in Goal Achievement: Facilitating Factors: Patient understanding and knowledge, Support of family or caregiver, Improvedfunctional mobility, Patient compliance, Patient motivation, Improved strength, Use of compensatorystrategies and Improved function Barriers: Balance deficits, Diminished endurance, Pain, Strength limitations, Motor control deficits, Spasticity and Tone deficits Date Last Assessed: 06/27/2019 CARE Score Tillman: 6: Independent. Index provides no assistance with tasks. A device may or may not have been used. 5: Set-up or clean-up assistance. Index sets up or cleans up, but does not assist with tasks. Index may have assisted prior to or following the activity. 4: Supervision or touching assistance. Index provides verbal cues or touching/steadying or contactguard assistance. Assistance may be provided throughout the activity or intermittently. 3: Partial/moderate assistance. Index does less than half the effort. Index lifts, holds, or supports trunk or limbs, but provides less than half the effort. 2: Substantial/maximal assistance. Index does more than half the effort. Index lifts or holds trunk or limbs, and provides more than half the effort. 1: Dependent. Index does all of the effort, or the assistance of two or more helpers is required for the patient to complete the activity. -: Inconsistent or incomplete documentation Activity not attempted values: 7: Patient refused 9: Not applicable - Not attempted and the patient did not perform this activity prior to the current illness, exacerbation, or injury. 10: Not attempted due to environmental limitations (e.g., lack of equipment, weather constraints) 88: Not attempted due to medical condition or safety concerns Jail Goals: Goal Status on Admission Current Status Car Transfer LTG: Supervision or touching assistance(Patient will perform car transfer using least restrictive assistive device and supervision) Car Transfer - CARE Score: 1 (06/10/191240 : Leander Kellogg PT) Car Transfer - CARE Score: 2 (06/27/191521) Walk 10 Feet - CARE Score: 88 (06/10/19 124 : Yesi Kellogg PT) Walk 10 Feet - CARE Score: 1 (06/27/191521) Walk 50 Feet with Two Turns LTG: Supervision or touching assistance(Patient will ambulate 50 feet using least restrictive assistive device and supervision) Walk 50 Feet with Two Turns - CARE Score: 88 (06/10/19 124 : Yesi Kellogg PT) Walk 50 Feet with Two Turns - CARE Score: 88 (06/27/191521) Walk 150 Feet - CARE Score: 88 (06/10/19 124 : Yesi Kellogg PT) Walk 150 Feet - CARE Score: 88 (06/27/191521) Walking 10 Feet on Uneven Surfaces - CARE Score: 88 (06/10/19 124 : Yesi Kellogg PT) Walking 10 Feet on Uneven Surfaces - CARE Score: 88 (06/27/191521) 1 Step (Curb) - CARE Score: 88 (06/10/19 1241 : Yesi Kellogg, PT) 1 Step (Curb) - CARE Score: 88 (06/27/19 152) 4 Steps LTG: Partial/moderate assistance(Patient will ascend/descend 4 steps with minimal assistance) 4 Steps - CARE Score: 88 (06/10/19 1241 : Yesi Kellogg, PT) 4 Steps - CARE Score: 88 (06/27/19 152) 12 Steps - CARE Score: 88 (06/10/19 1241 : Yesi Kellogg, PT) 12 Steps - CARE Score: 88 (06/27/191521) Picking Up Object - CARE Score: 88 (06/10/19 1241 : Yesi Kellogg, PT) Picking Up Object - CARE Score: 88 (06/27/191521) Wheel 50 Feet with Two Turns - CARE Score: 1 (06/10/19 1241 : Yesi Kellogg PT) Wheel 50 Feet with Two Turns - CARE Score: 3 (06/27/191521) Wheel 150 Feet LTG: Independent(Patient will propel 150 feet over level surfaces using appropriate compensatory strategies and modified independence) Wheel 150 Feet - CARE Score: 1 (06/10/19 1241 : Yesi Kellogg, PT) Wheel 150 Feet - CARE Score: 2 (06/27/191521) PT Other Jail Goals Most Recent Value Other PT Jail Goals Other Goals - Family Mediator Family Mediator 1, Family Mediator 2 Filed on: 06/10/2019 1248 Other Jail Goal 1 Patient will transfer sit to/from stand with minimal assistance Filed on: 06/27/2019 1524 Other Jail Goal 1 Status Not Achieved Filed on: 06/27/2019 1524 Other Jail Goal 2 Patient will transition supine to/from sitting with minimal assistance Filedon: 06/27/2019 1524 Other Family Mediator Goal 2 Status Not Achieved Filed on: 06/27/2019 1524 Expected Achievement Date 08/05/19 Filed on: 06/10/2019 1248 PT Short Term Goal 1: Focus: Car Transfer Level of Assistance to Meet Short Term Goal: Adaptive equipment and Physical assistance 25%-49% Details: Patient will perform car transfer with maximal assistance of one (MET 06/28/19) Patient will perform car transfer with moderate assistance of one using least restrictive assistivedevice and compensatory strategies Expected Achievement Date: 07/05/2019 Goal Status: Established PT Short Term Goal 2: Focus: Walking Level of Assistance to Meet Short Term Goal: Total assistance Details: Patient will ambulate 30 feet without assistive device and maximal assistance x 2 for weight shifting and blocking BLE (MET 06/28/19) Patient will ambulate 35 feet without assistive device and maximal assistance x 1 for weight shifting and balance Expected Achievement Date: 07/05/2019 Status: Established Walking Distance: Other (comment) PT Short Term Goal 3: Focus: Other Level of Assistance to Meet Short Term Goal: Physical assistance 25%-49% Details: Patient will perform stand pivot transfer without assistive device and maximal assistance of one (MET 06/27/19) Patient will perform stand pivot transfer without assistive device and moderate assistance of one Expected Achievement Date: 07/05/2019 Status: Established PT Short Term Goal 4: Focus: Other Level of Assistance to Meet Short Term Goal: Physical assistance 25%-49% Details: Patient will transfer sit to stand with moderate assistance of 1 Expected Achievement Date: 07/05/2019 Goal Status: Partially Achieved PT Short Term Goal 5: Focus: Wheelchair Management Level of Assistance to Meet Short Term Goal: Supervision Details: Patient will propel wheelchair 50 feet with bilateral lower extremities and supervision Expected Achievement Date: 07/05/2019 Goal Status: Partially Achieved Wheelchair Distance: 50 feet YESI KELLOGG, PT 06/28/2019 CHART CORRECTION: Type of Chart Edit: Addendum Reason for Correction: Need for further clarification Name: Yesi Kellogg, PT, DPT Date: 06/28/2019 Time: 10:09 OT Weekly Progress Note (Notes from 06/21/19 through 06/28/19) OT Weekly Progress Note by Rosemary Murphy OT at 06/27/2019 4:19 PM Author: Rosemary Murphy OT Service: Therapy Author Type: Occupational Therapist Filed: 06/27/2019 4:21 PM Date of Service: 06/27/2019 Status: Signed Air Pumper: Rosemary Murphy OT (Occupational Therapist) Occupational Therapy Weekly Progress Note Patient Name: Ajit Tyler Patient Birthdate: 1960 OT Current Functional Status: Mr. Tyler is currently completing the following: FEEDING: with total assistance. ORAL CARE: does not complete per pt. report. BATHING: with total assistance, sponge bathing bed level. TOILETING: with total assistance, straight catheterization- demonstrates improved ability to self-advocate. UPPER BODY DRESSING: with total assistance for donning/doffing gown. LOWER BODY DRESSING: with total assistance- demonstrating improved ability to assist utilizing modified bridging technique. FOOTWEAR: with total assistance. BED <> W/C TRANSFER: with maximal assistance of 1 for stand pivot transfer- improved from total assistance with 2 people. SIT TO STAND: with moderate assistance from bed surface, no device. LYING TO SITTING: with maximal assistance. SITTING TO LYING: with total assistance. ROLLING SIDE TO SIDE: with maximal assistance (emerging to moderate with improved ability to assistwith LE management) Mr. Tyler has demonstrated progress in the areas of bed mobility and lower body dressing. He demonstrates limited progress in the above areas due to impaired BUE functional use, however is demonstrating improved BUE function in preparation for increased independence with ADLs. Mr. Tyler has demonstrated improved UE strength in BUE biceps, BUE triceps, R wrist extensor, and scapular stabilizers.Mr. Tyler has participated in SCI education to improve ability to self-advocate- he demonstrates good understanding and has demonstrated improved ability to direct self-care with health daycare assistant present. He continues to present with impaired BUE coordination, strength, and ROM, impaired BUE functional use, pain, decreased functional strength and endurance, impaired sitting balance, impaired BLE motor function, and impaired standing balance limiting safe and independent participation in ADLs and functional transfers. Mr. Tyler would benefit from continued participation in intensiveOT rehabilitation services in order to address self-care, functional transfers, SCI education, BUE neuromuscular re-education and strengthening, and continued barriers to safe and independent discharge to least restrictive environment. Facilitating Factors in Goal Achievement: Patient understanding and knowledge, Patient compliance, Patient motivation, Improved strength, Improved function, Improved balance and Improved functional mobility Barriers to Goal Achievement: Pain, ROM limitations, Strength limitations, Balance deficits, Motor control deficits, Diminished endurance, Spasticity and Tone deficits Date Last Assessed: 06/27/2019 Patient needs assistance with the following activities: Activities of daily living, Going out in the community, Use of bathroom equipment, Positioning, Rolling, Sitting balance and Reaching Will patient require a prosthetic or orthotic device upon discharge: No CARE Score Tillman: 6: Independent. Index provides no assistance with tasks. A device may or may not have been used. 5: Set-up or clean-up assistance. Index sets up or cleans up, but does not assist with tasks. Index may have assisted prior to or following the activity. 4: Supervision or touching assistance. Index provides verbal cues or touching/steadying or contactguard assistance. Assistance may be provided throughout the activity or intermittently. 3: Partial/moderate assistance. Index does less than half the effort. Index lifts, holds, or supports trunk or limbs, but provides less than half the effort. 2: Substantial/maximal assistance. Index does more than half the effort. Index lifts or holds trunk or limbs, and provides more than half the effort. 1: Dependent. Index does all of the effort, or the assistance of two or more helpers is required for the patient to complete the activity. -: Inconsistent or incomplete documentation Activity not attempted values: 7: Patient refused 9: Not applicable - Not attempted and the patient did not perform this activity prior to the current illness, exacerbation, or injury. 10: Not attempted due to environmental limitations (e.g., lack of equipment, weather constraints) 88: Not attempted due to medical condition or safety concerns Jail Goals: Goal Status on Admission Current Status Eating LTG: Partial/moderate assistance(with AE and modified techniques as needed) Eating - CARE Score: 1 (06/10/19833 : Jayla Cavazos) Eating - CARE Score: 1 (06/27/191616) Oral Hygiene - CARE Score: 9 (06/10/19833 : Jayla Cavazos) Oral Hygiene - CARE Score: 9 (06/27/191616) Toileting Hygiene LTG: Dependent(with no verbal cues to be able to direct self- care) Toileting Hygiene - CARE Score: 1 (06/10/19833 : Jayla Cavazos) Toileting Hygiene - CARE Score: 1 (06/27/191616) Shower/Bathe Self LTG: Partial/moderate assistance(with AE and modified techniques as needed) Shower/Bathe Self - CARE Score: 1 (06/10/19833 : Jayla Cavazos) Shower/Bathe Self - CARE Score: 1 (06/27/191616) Upper Body Dressing LTG: Partial/moderate assistance(with modified techniques and AE as needed) Upper Body Dressing - CARE Score: 10 (06/10/19833 : Jayla Cavazos) Upper Body Dressing - CARE Score: 1 (06/27/191616) Lower Body Dressing LTG: Substantial/maximal assistance(with no verbal cues to be able to direct self-care) Lower Body Dressing - CARE Score: 1 (06/10/19833 : Jayla Cavazos) Lower Body Dressing -CARE Score: 1 (06/27/191616) Putting On/Taking Off Footwear - CARE Score: 1 (06/10/19833 : Jayla Cavazos) Putting On/Taking Off Footwear - CARE Score: 1 (06/27/191616) Roll Left and Right LTG: Partial/moderate assistance Roll Left and Right - CARE Score: 1 (06/10/19833 : Jayla Cavazos) Roll Left and Right - CARE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 Details: Pt will complete bathing with maximal assistance utilizing AE and modified techniques as needed. Expected Achievement Date: 07/04/2019 Goal Status: Not Achieved OT Short Term Goal 3: Focus: Upper Body Dressing Details: Pt will complete UBD with maximal assistance utilizing AE and modified techniques. Expected Achievement Date: 07/04/2019 Goal Status: Not Achieved OT Short Term Goal 4: Focus: Lower Body Dressing Details: Pt will complete LBD with total assistance to be able to direct self care. (PROGRESSING) Expected Achievement Date: 07/04/2019 Goal Status: Partially Achieved OT Short Term Goal 5: Focus: Roll Left and Right Details: Pt will complete rolling with maximal assistance. (MET OF 06/12) With moderate assistance Expected Achievement Date: 07/04/2019 Goal Status: Not Achieved OT Short Term Goal 6: Focus: Sit to Stand Details: Pt will complete sit to stand with maximal assistance. (MET OF 06/12) With moderate assistance (MET OF 06/12) With minimal assistance Expected Achievement Date: 07/04/2019 Goal Status: Not Achieved OT Short Term Goal 7: Focus: Chair/Bed Transfer Details: Pt will complete bed to chair transfer with maximal assistance. (MET OF 06/27/2019) With moderate assistance for stand pivot transfer Expected Achievement Date: 07/04/2019 Goal Status: Established ROSEMARY MURPHY OT 06/27/2019 * PT Weekly Progress Note - Yesi Kellogg, PT - 06/27/2019 3:24 PM CDT PT Weekly Progress Note Patient Name: Ajit Tyler Patient Birthdate: 1960 PT CURRENT FUNCTIONAL STATUS: PT Current Functional Status: PT Current Functional Status: Mr. Tyler is making steady progress towards his meterman mobility goals as evidenced by improved ambulation distances and wheelchair propulsion. His current functionalstatus is as follows: TRANSFERS- sit to/from stand with maximal assistance of one- emerging mod A (improved from maximal assist), stand pivot transfer with maximal assistance of one (improved from max assist of one and SBA of another), stand pivot car transfer with maximal assistance of one (improved from maximal assistance of one and moderate assistance of another), lateral transfer with transfer board and moderate assistance (improved from total A previously), supine to sitting with maximal assist of one for trunkand able to manage BLE without assist (unchanged), sitting EOB to supine with total A for management of trunk and BLE (unchanged), rolling side to side with minimal assistance of one- able to manage LEs to aide in force production and momentum when pushing to side however requires min A at trunk (improved from maximal assistance), AMBULATION- ambulates 38 feet without assistive device and maximal assistance of 1 and minimal assistance of another bilaterally for weight shifting- demonstrates improved foot placement and no instances of scissoring however requires increased time for coordinating at times, with w/c follow for safety- limited in distance by BLE fatigue/weakness and ataxia, decreased trunk control (improved from12 feet with moderate to maximal assistance of 2 and assist for foot placement at times due to scissoring gait), ambulates 16 feet with maximal assistance of one and SBA of another with wheelchair follow (improved from unable to ambulate with assist of 1), unsafe to attempt uneven surfaces at this time, ELEVATIONS- unsafe to attempt at this time, 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 Current barriers include impaired standing balance, UE/LE muscle strength, ataxic movements, musclespasms/tone, tolerance to standing, activity tolerance, proprioception, and impaired to absent sensation, motor planning. Mr. Tyler would continue to benefit from further intensive skilled physical therapy services in order to continue to address these deficits and maximize independence with functional mobility and caregiver direction. Factors in Goal Achievement: Facilitating Factors: Patient understanding and knowledge, Support of family or caregiver, Improvedfunctional mobility, Patient compliance, Patient motivation, Improved strength, Use of compensatorystrategies and Improved function Barriers: Balance deficits, Diminished endurance, Pain, Strength limitations, Motor control deficits, Spasticity and Tone deficits Date Last Assessed: 06/27/2019 CARE Score Tillman: 6: Independent. Index provides no assistance with tasks. A device may or may not have been used. 5: Set-up or clean-up assistance. Index sets up or cleans up, but does not assist with tasks. Index may have assisted prior to or following the activity. 4: Supervision or touching assistance. Index provides verbal cues or touching/steadying or contactguard assistance. Assistance may be provided throughout the activity or intermittently. 3: Partial/moderate assistance. Index does less than half the effort. Index lifts, holds, or supports trunk or limbs, but provides less than half the effort. 2: Substantial/maximal assistance. Index does more than half the effort. Index lifts or holds trunk or limbs, and provides more than half the effort. 1: Dependent. Index does all of the effort, or the assistance of two or more helpers is required for the patient to complete the activity. -: Inconsistent or incomplete documentation Activity not attempted values: 7: Patient refused 9: Not applicable - Not attempted and the patient did not perform this activity prior to the current illness, exacerbation, or injury. 10: Not attempted due to environmental limitations (e.g., lack of equipment, weather constraints) 88: Not attempted due to medical condition or safety concerns Family Mediator Goals: Goal Status on Admission Current Status Car Transfer LTG: Supervision or touching assistance(Patient will perform car transfer using least restrictive assistive device and supervision) Car Transfer - CARE Score: 1 (06/10/19 1241 : Leander Kellogg PT) Car Transfer - CARE Score: 2 (05/11/20 1522) Walk 10 Feet - CARE Score: 88 (06/10/19 1241 : Yesi Kellogg PT) Walk 10 Feet - CARE Score: 1 (06/27/191521) Walk 50 Feet with Two Turns LTG: Supervision or touching assistance(Patient will ambulate 50 feet using least restrictive assistive device and supervision) Walk 50 Feet with Two Turns - CARE Score: 88 (06/10/19 1241 : Yesi Kellogg PT) Walk 50 Feet with Two Turns - CARE Score: 88 (06/27/191521) Walk 150 Feet - CARE Score: 88 (06/10/19 1241 : Yesi Kellogg PT) Walk 150 Feet - CARE Score: 88 (06/27/191521) Walking 10 Feet on Uneven Surfaces - CARE Score: 88 (06/10/19 1241 : Yesi Kellogg PT) Walking 10 Feet on Uneven Surfaces - CARE Score: 88 (06/27/191521) 1 Step (Curb) - CARE Score: 88 (06/10/19 1241 : Yesi Kellogg PT) 1 Step (Curb) - CARE Score: 88 (06/27/191521) 4 Steps LTG: Partial/moderate assistance(Patient will ascend/descend 4 steps with minimal assistance) 4 Steps - CARE Score: 88 (06/10/19 1241 : Yesi Kellogg PT) 4 Steps - CARE Score: 88 (06/27/191521) 12 Steps - CARE Score: 88 (06/10/19 1241 : Yesi Kellogg PT) 12 Steps - CARE Score: 88 (06/27/191521) Picking Up Object - CARE Score: 88 (06/10/19 1241 : Yesi Kellogg PT) Picking Up Object - CARE Score: 88 (06/27/191521) Wheel 50 Feet with Two Turns - CARE Score: 1 (06/10/19 1241 : Yesi Kellogg PT) Wheel 50 Feet with Two Turns - CARE Score: 3 (06/27/191521) Wheel 150 Feet LTG: Independent(Patient will propel 150 feet over level surfaces using appropriate compensatory strategies and modified independence) Wheel 150 Feet - CARE Score: 1 (06/10/19 1241 : Yesi Kellogg, PT) Wheel 150 Feet - CARE Score: 2 (06/27/19 1522) PT Other Family Mediator Goals Most Recent Value Other PT Family Mediator Goals Other Goals - Jail Jail 1, Family Mediator 2 Filed on: 06/10/2019 1248 Other Family Mediator Goal 1 Patient will transfer sit to/from stand with minimal assistance Filed on: 06/27/2019 1524 Other Family Mediator Goal 1 Status Not Achieved Filed on: 06/27/2019 1524 Other Family Mediator Goal 2 Patient will transition supine to/from sitting with minimal assistance Filedon: 06/27/2019 1524 Other Jail Goal 2 Status Not Achieved Filed on: 06/27/2019 1524 Expected Achievement Date 08/05/19 Filed on: 06/10/2019 1248 PT Short Term Goal 1: Focus: Car Transfer Level of Assistance to Meet Short Term Goal: Adaptive equipment and Physical assistance 25%-49% Details: Patient will perform car transfer with maximal assistance of one (MET 06/28/19) Patient will perform car transfer with moderate assistance of one using least restrictive assistivedevice and compensatory strategies Expected Achievement Date: 07/05/2019 Goal Status: Established PT Short Term Goal 2: Focus: Walking Level of Assistance to Meet Short Term Goal: Total assistance Details: Patient will ambulate 30 feet without assistive device and maximal assistance x 2 for weight shifting and blocking BLE (MET 06/28/19) Patient will ambulate 35 feet without assistive device and maximal assistance x 1 for weight shifting and balance Expected Achievement Date: 07/05/2019 Status: Established Walking Distance: Other (comment) PT Short Term Goal 3: Focus: Other Level of Assistance to Meet Short Term Goal: Physical assistance 25%-49% Details: Patient will perform stand pivot transfer without assistive device and maximal assistance of one (MET 06/27/19) Patient will perform stand pivot transfer without assistive device and moderate assistance of one Expected Achievement Date: 07/05/2019 Status: Established PT Short Term Goal 4: Focus: Other Level of Assistance to Meet Short Term Goal: Physical assistance 25%-49% Details: Patient will transfer sit to stand with moderate assistance of 1 Expected Achievement Date: 07/05/2019 Goal Status: Partially Achieved PT Short Term Goal 5: Focus: Wheelchair Management Level of Assistance to Meet Short Term Goal: Supervision Details: Patient will propel wheelchair 50 feet with bilateral lower extremities and supervision Expected Achievement Date: 07/05/2019 Goal Status: Partially Achieved Wheelchair Distance: 50 feet YESI KELLOGG PT 06/28/2019 CHART CORRECTION: Type of Chart Edit: Addendum Reason for Correction: Need for further clarification Name: Yesi Kellogg, PT, DPT Date: 06/28/2019 Time: 10:09 * Plan of Care - Susana Addison RD - 06/27/2019 12:49 PM CDT Problem: Inadequate or Predicted Suboptimal Energy or Oral Intake Description Related to: Decreased ability to consume sufficient energy As Evidenced By: meal intakes <50% Goal: Clinical Nutrition Goal Outcome: Progressing Flowsheets Taken 06/10/[address] Primary Goal: Adequate Meals and Snack/Oral Nutrition Supplement Intake Primary Indicator/Monitor: 50 - 100% Secondary Goal: Weight Maintenance Secondary Indicator/Monitor: No weight loss Tertiary Goal: Other (wound healing) Tertiary Goal Progress: New Tertiary Indicator/Monitor: incision to heal Taken 06/20/[address] Primary Goal Progress: Ongoing Secondary Goal Progress: Ongoing Intervention: Medical Nutrition Therapy Interventions Flowsheets (Taken 06/10/[address]) Meals and Snacks: General/healthful diet Supplements: Commercial beverage/Oral Nutrition Supplement (Ensure Enlive BID, 350 kcal, 20 grams protein each) Coordination of Nutrition Care: Other (staff to feed patient) * PT Treatment Note - Yesi Kellogg PT - 06/27/2019 10:35 AM CDT PT Treatment Patient Name: Ajit Tyler Patient Birthdate: 1960 Patient Subjective Report - Pt agreeable to participation in therapy session after completion of OTsession. Pain Assessment Pain Context: Therapy Assessment Prior to Treatment (06/27/19 1035) Pain Assessment: NRS 0-10 (06/27/191034) Pain Score: 3 (06/27/191034) Pain Type: Chronic pain (06/27/191034) Pain Location: Neck, Shoulder (06/27/191034) Pain Orientation: Left, Right (06/27/191034) Pain Descriptors: Aching (06/27/191034) Pain Onset: Ongoing (06/27/191034) Pain Frequency: Constant/continuous (06/27/191034) Aggravating Factors: Activity Duration, Positioning (06/27/191034) Functional Impact: Turning, Walking (06/27/191034) Pre-therapy pain intervention required: Patient expressed pain is tolerable/able to proceed (06/27/191034) Pain Interventions Education Provided: Patient (06/27/191034) Non-Pharmacologic Pain Interventions: Distractions, Exercise/Activity, Position/Reposition, Rest (06/27/191034) Emotional/Spiritual Pain Interventions: Emotional Support (06/27/191034) Transfer to 1: Stand Transfer from 1: Sit Technique 1: Sit to stand Transfer Level of Assistance 1: Maximal Assistance and Total Assistance/Dependent Trials/Comments1: Requires max-total A for force production during STS transfers due to fatigue in LEs Therapeutic Activities and Neuromuscular Re-education: TREADMILL TRAINING: Perform Lokomat trainingin harness over treadmill x 6:27 min for carryover to improved gait speed and quality of gait pattern needed for independence with overground gait. No orthoses used this date with focus on independent control of foot placement and coordination of stepping pattern. Increased time spent initially forsetup of harness, as pt is only able to standing in bouts of 1 min at a time with max-total A to prevent knee buckling due to fatigue. Tolerates 0.3 mph speed initially in 2 bouts x 1:40 sec each andcues throughout for focus on widening SOPHY and slow, controlled step length- Demonstrates improved Bquad recruitment after first bout and discussion of quad activation in stance phase with tactile cues provided. Pt becomes fatigued nearing 1:40 and unable to continue stepping with speed of treadmill. Requires manual assist for control of hip medial/lateral displacement due to weakness at B hip abductors. Additionally performs the following BLE strengthening exercises for carryover to improved muscle activation and strength: mini squats x 15 reps at 80% BWS, mini squats x 15 reps at 75% BWS. Require sitting quickly after 3 min rest post- completion of standing ex due to pt c/o dizziness and SOB. Rehab doctor is present at this time and tilt chair fully post with BUE supported to aide in blood return, pt states slow improvement in symptoms upon tilting post in w/c. BP initially 179/91, 149/87 after 5 min reclined posteriorly. % Body Weight Support: 75-85% BWS, Distance: 108 feet, Duration: 3:39 spent for ambulation, Speed: 0.3 mph. SCI FIT: tolerates sci fit ergometer with BLE only at level 1 resistance x 7 min (performs in boutsof 2-3 min and resting 30 sec at a time) for carryover to improved cardiovascular endurance, musclestrength, and ROM needed for functional ambulation and transfers. PT Treatment Outcomes:: Cues needed for safety, Goals met for this session, Patient is progressing toward STG and Patient tolerated session fair PT Summary:: Perform treadmill training in loYaKlassint this session for carryover to improved coordination of stepping and weightbearing. Tolerates two separate bouts of walking at 80% WB for 1:40 each, prior to stopping to rest due to LE fatigue. Pt additionally performs LE ther ex while supported by overhead harness of [place], however limited in duration due to pt c/o lightheadedness and SOB. Rehab doctor present at this time, quickly return to sitting in wheelchair and tilt post with LEs elevated and pt slowly stating resolution of symptoms. Patient remained up sitting in chair at end of session with pelvic positioning belt on, chair alarm in place, sip and puff call light in reach. PT Summary Plan of Care: Continue with current plan of care Pain Evaluation and Follow-up Pain Reassessment: 4 (06/27/19 1205) Nursing notified of patient's pain assessment: Primary Nurse (06/27/19 1205) Therapy Minutes Individual Concurrent Co-Treat Time In : 1035 Time Out: 1205 Breaks/Pauses (Min): 0 mins Total Time with Patient (Min): 90 min Missed Minutes : 0 YESI KELLOGG, PT 06/27/2019 * OT Treatment Note - Rosemary Murphy, OT - 06/27/2019 9:03 AM CDT Occupational Therapy Treatment Patient Name: Ajit Tyler Patient Birthdate: 1960 Patient Subjective Report - Pt. Agreeable to therapy this . Pain Assessment Pain Context: Therapy Assessment Prior to Treatment (06/27/19902) Pain Assessment: NRS 0-10 (06/27/19902) Pain Score: 4 - Moderate Pain (06/27/19902) Pain Type: Acute pain (06/27/19902) Pain Location: Shoulder, Arm (06/27/19902) Pain Orientation: Right, Left (06/27/19902) Pain Descriptors: Aching (06/27/19902) Pain Onset: Ongoing (06/27/19902) Pain Interventions Education Provided: Patient (06/27/191033) Non-Pharmacologic Pain Interventions: Distractions, Exercise/Activity, Position/Reposition, Relaxation, Rest (06/27/191033) Emotional/Spiritual Pain Interventions: Emotional Support (06/27/191033) ADL Status: Bed, Chair, Wheelchair Transfer: Maximal Assistance and Moderate Assistance Bed/Chair Transfer to: Wheelchair and Stand Bed/Chair Transfer from: Bed and Sit Bed/Chair Transfer Technique: Stand pivot, Stand to sit and Sit to stand Assistive Devices Used: No device Bed/Chair Transfer Comments: See transfer narrative ADL Training: ADL Training Narrative: LOWER BODY DRESSING: pt. Provided assist to thread BLE into pants this datedue to limited functional reach secondary to spinal precautions and due to limited functional use of BUE. Pt. Nahun good carryover with learned bridge technique to increase ability to assist with pulling pants over hips- pt. Requires minimal assist to manage BLE due to wear of shoes on bed for participation. FOOTWEAR: pt. Requires assist to don shoes and compression stockings BLE bed level this date due tolimited functional reach. Pt. Participates in preparation for functional transfer with increased safety with wear of shoes. Transfer Training: Transfer Narrative: BED <> W/C TRANSFER: pt. Tessieos improved trunk control this date with ability to achieve forward trunk flexion for increased safety and independence with ability to achieve stand from sit. Pt. Demos improved force production from raised bed surface and with improved BLE strength. Pt. Demonstrates improved standing balance for participation in pivot to L to w/c. Pt. Requires increased time for management of BLE due to decreased coordination and requires moderate assist to manage standing balance with participation. Increased time for pivot to w/c due to decreased LE coordination. Pt. Requires maximal assist for safe descent to sit. Bed Mobility: Performed on bed Bed Mobility Comment: Pt. Provided assist to manage BLE this date for transition from supine to short sit EOB- increased difficulty with traction of tennis shoes on bed surface requiring assist. Pt. Demos improved BLE strength with ability to assist with management of BLE for transition. Pt. Requires assist to manage trunk with participation in transition to supine to short sit EOB. Neuromuscular Re-education: Neuromuscular Re-education: Yes Functional Movement Patterns: Pt. Participates in neuromuscular re-education this date utilizing functional electrical stimulation (FES) bike this date in order to address and improve BUE strength, ROM, coordination, and motor function for improved functional use for increased independence with ADLs. Electrical stimulation utilized to facilitate muscle contraction and functional movement patternsof bilateral scapular stabilizers, anterior deltoids, posterior deltoids, biceps, tricep, and L wrist extensor, and R wrist flexor through forward (10 minutes) and bcakward (8 minutes) directions. The below stimulation was applied to the following muscle groups: L scapular stabilzers: 22 mA L anterior deltoid: 17 mA L posterior deltoid: 11 mA L bicep: 12 mA L tricep 14 mA L wrist extensor: 13 mA R scapular stabilizers: 14 mA R anterior deltoid: 11 mA R posterior deltoid: 15 mA R bicep: 14 mA R tricep 14 mA R wrist flexorr: 11 mA Pt. Participates total duration of 20 minutes, 15 seconds, completing 1.75 miles, demonstrating 0% asymmetry with participation. Pt. Demonstrates improved UE ROM for participation with no tone or spasticity noted. Pt. Initially reports L shoulder pain at start, however reports improvement to no pain of L shoulder with participation with ROM. Pt. Completes distance of 1.75 miltes with 1.9 resistance and 25 MPH target speed. Pt. Demonstrates improved PROM of BUE with participation in neuromuscular re-education. Pt. Demonstrates good tolerance with participation with no pain or discomfort noted. No irritation or redness noted to skin with placement and removal of stimulation pads. Maximal increased time required for skilled setup and muscle testing this date. Treatment, Outcomes and Plan: OT Narrative:: Pt. Demonstrates decreased shoulder pain with ROM with participation in neuromuscular re-education this date. He demonstrates improved force production and increased independence with functional transfer. Pt. Would benefit from continued participation in intensive OT rehabilitation services in order to address sitting balance, BUE coordination, strength, and ROM, pain management, and functional strength and endurance for increased independence with ADLs and functional transfers. Pt. Seated in w/c with pelvic positioning belt and alarm active. PT present at end of session. OT Treatment Outcomes:: Safety device reapplied, Patient tolerated treatment well, Patient is progressing toward STG(s), Goals met for this session and Improved ability to perform functional transfers OT Summary Plan of Care: Continue with current plan of care Pain Evaluation and Follow-up Pain Reassessment: 3 (06/27/19 1034) Nursing notified of patient's pain assessment: Primary Nurse (06/27/19 1034) Therapy Minutes Individual Concurrent Co-Treat Time In : 902 Time Out: 1035 Breaks/Pauses (Min): 0 mins Total Time with Patient (Min): 92 min Missed Minutes : 2 ROSEMARY MURPHY OT 06/27/2019 * Plan of Care - Leila Gomez RN - 06/27/2019 8:33 AM CDT Problem: Infection Goal: Absence of infection and prevention of transmission during hospitalization Outcome: Progressing Problem: Fall Safety Goal: Free from fall injury Outcome: Progressing Problem: Knowledge Deficit Goal: Patient and/or family demonstrate readiness to learn Outcome: Progressing Goal: Patient and/or family verbalizes understanding of education, and/or performs desired skill Outcome: Progressing Problem: Discharge Planning Goal: Discharge to home or other facility with appropriate resources Outcome: Progressing Goal: solar sales associate will develop a plan to decrease their burden and enhance comfort in role Outcome: Progressing Problem: Knowledge Deficit Goal: Patient/family/caregiver demonstrates understanding of disease process, treatment plan, medications, and discharge instructions Outcome: Progressing Problem: Potential for Compromised Skin Integrity Goal: Skin integrity is maintained or improved Outcome: Progressing Goal: Nutritional status is improving Outcome: Progressing Problem: Urinary Incontinence Goal: Perineal skin integrity is maintained or improved Outcome: Progressing Problem: Bowel Incontinence Goal: Perineal Skin Integrity is Maintained or Improved Outcome: Progressing Problem: Pain Goal: Patient's pain/discomfort is manageable Outcome: Progressing * Plan of Care - Katrina Ventura RN - 06/26/2019 7:50 PM CDT Problem: Infection Goal: Absence of infection and prevention of transmission during hospitalization Outcome: Progressing Problem: Fall Safety Goal: Free from fall injury Outcome: Progressing Problem: Knowledge Deficit Goal: Patient and/or family demonstrate readiness to learn Outcome: Progressing Goal: Patient and/or family verbalizes understanding of education, and/or performs desired skill Outcome: Progressing Problem: Discharge Planning Goal: Discharge to home or other facility with appropriate resources Outcome: Progressing Goal: solar sales associate will develop a plan to decrease their burden and enhance comfort in role Outcome: Progressing Problem: Knowledge Deficit Goal: Patient/family/caregiver demonstrates understanding of disease process, treatment plan, medications, and discharge instructions Outcome: Progressing Problem: Potential for Compromised Skin Integrity Goal: Skin integrity is maintained or improved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 Patient Birthdate: 1960 Patient Subjective Report - Pt agreeable to participation in therapy session. Pain Assessment Pain Context: Therapy Assessment Prior to Treatment (06/23/19944) Pain Assessment: NRS 0-10 (06/23/19944) Pain Score: 2 (06/23/19944) Pain Type: Acute pain (06/23/19944) Pain Location: Shoulder, Neck (06/23/19944) Pain Orientation: Right, Left (06/23/19944) Pain Descriptors: Sharp, Stabbing (06/23/19944) Pain Onset: Ongoing (06/23/19944) Pain Frequency: Constant/continuous (06/23/19944) Aggravating Factors: Activity Duration, Positioning (06/23/19944) Functional Impact: Walking, Turning (06/23/19944) Pre-therapy pain intervention required: Patient expressed pain is tolerable/able to proceed (06/23/19944) Pain Interventions Education Provided: Patient, Family (06/23/19944) Non-Pharmacologic Pain Interventions: Distractions, Exercise/Activity, Position/Reposition, Rest (06/23/19944) Emotional/Spiritual Pain Interventions: Emotional Support (06/23/19944) Bed Mobility: Performed on bed and Short sit to - from supine Bed Mobility Level of Assistance: Maximal Assistance and Moderate Assistance Bed Mobility Comment: Rolling to L side with mod A at trunk and pt is able to provide better force production at RLE to aide in pushing to L side. Pt manages BLE off EOB without assist and requires max A at trunk to reach upright sitting. Pt sister and SO are present and discuss sequencing of bed mobility, however state they do not wish to perform hands on practice at this time. Surface: Even surface and Indoor Assistive Device: No Device Ambulation Level of Assistance: Total Assistance/Dependent, Maximal Assistance and Moderate Assistance Distance (feet): 25 Gait Analysis: Ambulates 22 + 25 feet without AD and initially mod A x 2 for first 5-10 feet of initial bout, progressing to max A x 2 for duration for weight shifting and occasionally blocking L knee only with weakness. Pt is occasionally heavily scissoring/stepping on opposite LE, however with increased time is able to move and correct foot placement without assist. Demonstrates improved step length and foot clearance compared to previous attempts, however continues to have difficulty initiating stepping and placing. W/c follow throughout for safety. Gait deviations include narrow SOHPY, flexed fwd trunk lean, B genu recurvatum during stance phase, ataxic gait pattern, and slow emily. Transfer to 1: Stand Transfer from 1: Sit Technique 1: Sit to stand Transfer Level of Assistance 1: Maximal Assistance and Moderate Assistance Trials/Comments1: Max A for force production to reach standing, however 1 instance of mod A with B knee block provided anteriorly. Pt fatigues quickly and requires increased assist to reach standing nearing end of session Transfer to 2: Wheelchair Transfer from 2: Bed Technique 2: Stand pivot Transfer Level of Assistance 2: Maximal Assistance Trials/Comments 2: Max A x 1 for weight shifting during SPT, however pt demos improved foot clearance and initiation of stepping during transfer. Requires cues for sequencing and foot placement due to poor proprioception. Transfer to 3: Bed Transfer from 3: Wheelchair Technique 3: Lateral with transfer board Transfer Level of Assistance 3: Moderate Assistance Trials/Comments 3: Lateral transfer with transfer board and mod A for force production and maintaining fwd weight shift. Require total A for setup, however is able to minimally lift hips on L side for therapist to position board. Educate family on proper placement of board, setup, and body mechanics during transfer including pt tendency to push trunk backwards when pushing through legs and requiring therapist to assist with fwd trunk position throughout. , Therapeutic Activities and Neuromuscular Re-education: THER EX: performs the following BLE strengthening exercises in sitting for carryover to improved independence with ambulation and functional transfers, x 15 reps each: knee ext, marching with tapping to top of 1.5 step (unable to fully tap topof step with LLE due to fatigue), hip abd/add with pillow squeeze, ankle pumps. PT Treatment Outcomes:: Cues needed for safety, Gait deviations reduced, Goals met for this session, Improved ambulation performance, Patient is progressing toward STG, Improved transfer ability noted, Patient tolerated session fair and Qualitative gains in function PT Summary:: Pt SO and sister present during session for family training. Discuss pt current functional status and deficits related to SCI. Additionally discuss nature specific to central cord injuries and progression of recovery. Demonstrate bed mobility, STS, stand pivot, and lateral transfer with transfer board to and from w/c. Discuss current recommendation for sliding board transfer for all transfers due to requiring increased assistance with standing mobility, however pt SO does not want hands on practice at this time. Additionally review recommendations for w/c use at discharge and need for ramp at home and pt and family state this is currently in the works. Family currently has no questions at this time. Demonstrates improved ability to assist with transfers this date- emerging mod A with STS transfers and shows improved stepping and foot clearance during SPT performed x 2 during session. Additionally shows improved ambulation distance and step length throughout, however fatigues quickly and requires knee block to LLE and increased assist nearing end of second bout. Patient remained up sitting in chair at end of session with pelvic positioning belt on, chair alarm in place, family sitting at side. PT Summary Plan of Care: Continue with current plan of care Pain Evaluation and Follow-up Pain Reassessment: 3 (06/23/19 4551) Nursing notified of patient's pain assessment: Primary Nurse (06/23/19 5198) Therapy Minutes Individual Concurrent Co-Treat Time In : 0945 Time Out: 1115 Breaks/Pauses (Min): 0 mins Total Time with Patient (Min): 90 min Missed Minutes : 0 YESI KELLOGG, PT 06/23/2019 * OT Treatment Note - Rosemary Murphy OT - 06/23/2019 8:13 AM CDT Occupational Therapy Treatment Patient Name: Ajit Tyler Patient Birthdate: 1960 Patient Subjective Report - Pt. Agreeable to therapy this date. Pain Assessment Pain Context: Therapy Assessment Prior to Treatment (06/23/19812) Pain Assessment: NRS 0-10 (06/23/19812) Pain Score: 2 (06/23/19812) Pain Type: Acute pain (06/23/19812) Pain Location: Shoulder (06/23/19812) Pain Orientation: Right, Left(bilateral shoulder; L leg ) (06/23/19812) Pain Interventions Education Provided: Patient (06/23/19919) Non-Pharmacologic Pain Interventions: Distractions, Exercise/Activity, Position/Reposition, Relaxation, Rest (06/23/19919) Emotional/Spiritual Pain Interventions: Emotional Support (06/23/19919) ADL Status: Grooming: Total Assistance/Dependent Grooming Comments: See ADL training narrative Toilet Comments: RN present during session to complete straight catheterization this date- pt. requires total assist. Pt. provided continued education on importance of ability to direct self-care. Demos good ability to instruct RN on desired LE positioning for participation. Requires total assist to complete at this time due to impaired BUE functional use with decreased motor coordination. ADL Training: ADL Training Narrative: Pt. Participates in grooming task this date in order to address ability to direct self care for increased safety and to increase confidence and independence with ADL participation. Pt. Educated on current need for assist to complete all ADLs due to impaired BUE functional use at this time- pt. Educated on importance of ability to direct self-care for own safety- verbalizesunderstanding. Shaving face and hair care completed this date- pt. Demos good confidence with ability to direct OT to desired assistance for shaving. Pt. Educated on use of techniques for visual feedback to better direct care with grooming tasks for desired outcome- verbalizes understanding and demos improved ability to clearly provide verbal directives to OT for participation. Increased time forparticipation in grooming tasks- following participation, pt. Tessieos improved understanding for direction of self-care. Treatment, Outcomes and Plan: OT Narrative:: Pt. Provided SCI education this date regarding ability to direct self-care. With participation in ADL tasks this date, pt. Tessieos improved understanding and improved ability to completewith directives to initiate. Pt. Would benefit from continued participation in intensive OT rehabilitation services in order to address BUE coordination, strength, and ROM, SCI education, and functional strength and endurance for increased independence with ADLs and functional transfers. Pt. Semi-supine in bed with alarm active and ECU call light in place for use of nurse call light. OT Treatment Outcomes:: Patient tolerated treatment well, Patient is progressing toward STG(s) and Goals met for this session OT Summary Plan of Care: Continue with current plan of care Pain Evaluation and Follow-up Pain Reassessment: 2 (06/23/19919) Nursing notified of patient's pain assessment: Not indicated - pain score 2 or less (06/23/19919) Therapy Minutes Individual Concurrent Co-Treat Time In : 812 Time Out: 919 Breaks/Pauses (Min): 20 mins Total Time with Patient (Min): 47 min Missed Minutes : 2 ROSEMARY MURPHY OT 06/23/2019 * Plan of Care - Yusef Huddleston RN - 06/23/2019 12:26 AM CDT Problem: Infection Goal: Absence of infection and prevention of transmission during hospitalization Outcome: Progressing Problem: Fall Safety Goal: Free from fall injury Outcome: Progressing Problem: Knowledge Deficit Goal: Patient and/or family demonstrate readiness to learn Outcome: Progressing Goal: Patient and/or family verbalizes understanding of education, and/or performs desired skill Outcome: Progressing Problem: Knowledge Deficit Goal: Patient/family/caregiver demonstrates understanding of disease process, treatment plan, medications, and discharge instructions Outcome: Progressing Problem: Potential for Compromised Skin Integrity Goal: Skin integrity is maintained or improved Outcome: Progressing Goal: Nutritional status is improving Outcome: Progressing Problem: Pain Goal: Patient's pain/discomfort is manageable Outcome: Progressing * PT Treatment Note - Yesi Kellogg, PT - 06/22/2019 1:07 PM CDT PT Treatment Patient Name: Ajit Tyler Patient Birthdate: 1960 Patient Subjective Report - Pt sitting up in wheelchair, agreeable to participation in therapy session. Pain Assessment Pain Context: Therapy Assessment Prior to Treatment (06/22/19 130) Pain Assessment: None/denies pain (06/22/19 1307) Pain Score: 0 - No pain (06/22/19 130) Bed Mobility: Performed on bed and Short sit to - from supine Bed Mobility Level of Assistance: Total Assistance/Dependent Bed Mobility Comment: Transfer back to bed with total A for management of trunk/UEs and LB. Gait Analysis: Attempt ambulation with B platform walker, however upon standing unable to attempt due to initial B knee buckle and return to sitting. Additionally perform 1 more attempt, however unable to initiate stepping with LE due to decreased support through BUE on platforms. Pt is able to maintain standing with B platform walker x 2 min with mod A x 1-2 due to posterior sway and B knee buckling. Requires total A for setup of UEs on platforms. Transfer to 1: Stand Transfer from 1: Sit Technique 1: Sit to stand Transfer Level of Assistance 1: Maximal Assistance Trials/Comments1: Max A for force production and B knee block to reach standing Transfer to 2: Bed Transfer from 2: Wheelchair Technique 2: Squat pivot Transfer Level of Assistance 2: Maximal Assistance Trials/Comments 2: Max A squat pivot transfer and pt assisting with LEs. Therapeutic Activities and Neuromuscular Re-education: LOKOMAT: Perform lokomat gait training this session for improved B LE muscle strength and muscle activation, tissue extensibility/ROM, circulation, improved weight bearing, tolerance to upright and proprioception needed for improved speeds and gait pattern during over-ground gait. Skin check performed before and after treatment with no adverse reactions noted. Maintains standing in two bouts x 2 min each while donning harness due to LE fatigue and falling back into chair initially. Requires max A x 1 and occasional mod A of another to maintain with increased LE fatigue and instances of B knee buckling this date. Patient participates in t hree augmented performance feedback activities (FASTER!, high flyer, and ice hopper top) for 5 minutes each to improve muscle activation, force production, motor planning and step length on BLE during swing and stance phases. Demonstrates improved high score during second attempt this date at FASTER!- improving total score from 114 initially to 168 this date with decreased body weight support throughout. Requires 2 min rest break in between augmented performance activities due to fatigue. Education provided throughout regarding benefits and rationale of lokomat use, principles of neuroplasticity, and carryover to functional tasks. % Body Weight Support: 44% minimum (44% previously) and 59% average (64%), Distance: 1,838 feet (1,443), Duration: 20:23 min (17:03), Guidance Force: average 87% (95%), Guidance Force minimum: 63% (75%), Speed: 1.0 mph average (1.0), 1.1 mph max (1.1) speed. PT Treatment Outcomes:: Cues needed for safety, Goals met for this session, Patient is progressing toward STG and Patient tolerated session fair PT Summary:: Trial use of B platform walker during session, however unable to safely attempt ambulation due to B knee buckling and decreased support/weakness at BUE on platforms. Perform lokomat during session and demonstrates decreased overall body weight support needed to maintain upright, increased duration/tolerance, and decreased guidance forces. Rehab doctor present at completion of sessionand transfer pt back to bed due to c/o increased pain at santo catheter site. Bed alarm on and sip and puff call light in reach of pt. PT Summary Plan of Care: Continue with current plan of care Pain Evaluation and Follow-up Pain Reassessment: 2 (06/22/19 1446) Nursing notified of patient's pain assessment: Not indicated - pain score 2 or less (06/22/19 1446) Therapy Minutes Individual Concurrent Co-Treat Time In : 1307 Time Out: 1446 Breaks/Pauses (Min): 0 mins Total Time with Patient (Min): 99 min Missed Minutes : 9 YESI KELLOGG, PT 06/22/2019 * OT Treatment Note - Rosemary Murphy OT - 06/22/2019 10:33 AM CDT Occupational Therapy Treatment Patient Name: Ajit Tyler Patient Birthdate: 1960 Patient Subjective Report - Pt. Agreeable to therapy this date. *Pain Assessment Pain Context: Therapy Assessment Prior to Treatment (06/22/19 103) Pain Assessment: None/denies pain (06/22/19 1033) Pain Interventions Education Provided: Patient (06/22/19 121) Non-Pharmacologic Pain Interventions: Distractions, Position/Reposition, Relaxation, Rest, Exercise/Activity (06/22/19 121) Emotional/Spiritual Pain Interventions: Emotional Support (06/22/19 121) ADL Status: Dressing Lower Body: Total Assistance/Dependent Lower Body Dressing Where Assessed: Supine in bed Lower Body Dressing Comments: Pt. provided total assist to don compression stockings, pants, and shoes this date bed level in preparation for participation in functional transfer and therapeutic activity. Pt. tessieos improved BLE strength for ability to assist with managing pants over hips by partialbridge utilizing BLE. Bed/Chair Transfer Comments: See transfer narrative Transfer Training: Transfer Narrative: Pt. Participates in transfer to R to w/c from bed utilizing transfer board. Pt.Requires assist of 2 for placement of transfer board- assist of 1 for lateral weight shift and assist of 2nd to manage board. Pt. Requires maximal assistance for transfer due to impaired sitting balance. With force through BLE, pt. Demos retropulsion and requires assist to maintain forward weight shift. Pt. Tessieos improved force production through BLE and demos improved ability to manage BLE for participation. Bed Mobility: Performed on bed Bed Mobility Comment: Pt. Tessieos improved ability to manage LE for increased momentum with rolling side to side. Assist to manage BUE for increased safety and to decrease risk of nerve impingement andfor improved joint integrity. Pt. Requires max assist to achieve rolling side to side for participation in dressing. Pt. Tessieos improved ability to manage BLE for transition from supine to short sit EOB- requires minimal assist to manage BLE this date. Pt. Requires assist to manage trunk to achieve sitting EOB. Improved ability to assist with trunk management with improved core strength. OT Therapeutic Activity: Other: Pt. Participates in pressure relief with total assist to manage [id number] w/c following prolonged sitting with setup and participation in FES bike for neuromuscular re-education. Neuromuscular Re-education: Neuromuscular Re-education: Yes Functional Movement Patterns: Pt. Participates in neuromuscular re-education this date utilizing functional electrical stimulation (FES) bike this date in order to address and improve BUE strength, ROM, coordination, and motor function for improved functional use for increased independence with ADLs. Electrical stimulation utilized to facilitate muscle contraction and functional movement patternsof bilateral scapular stabilizers, anterior deltoids, posterior deltoids, biceps, tricep, and wristextensors through forward rotation (17 minutes). The below stimulation was applied to the following muscle groups: L scapular stabilzers: 25 mA L anterior deltoid: 21 mA L posterior deltoid: 15 mA L bicep: 16 mA L tricep 18 mA L wrist extensor: 17 mA R scapular stabilizers: 18 mA R anterior deltoid: 15 mA R posterior deltoid: 19 mA R bicep: 18 mA R tricep 18 mA R wrist extensor: 15 mA Pt. Participates total duration of 17 minutes, completing 1.83 miles, demonstrating 0% asymmetry with participation. Pt. Demonstrates good UE ROM for participation with no tone or spasticity noted. Power output avg. .1 W with participation, demoing improved active contraction of BUE muscles. Pt. Demonstrates good tolerance with participation with no pain or discomfort noted. No irritation or redness noted to skin with placement and removal of stimulation pads. Maximal increased time required for skilled setup and muscle testing this date. Treatment, Outcomes and Plan: OT Narrative:: Pt. Continues to demo improved tolerance for participation in neuromuscular re-education with use of FES bike to improve BUE strength. Pt. Would benefit from continued participation inintensive OT rehabilitation services in order to address sitting balance, BUE coordination, strength, and ROM, BUE functional use, and functional strength and endurance for increased independence with ADLs and functional transfers. Pt. Seated in w/c with pelvic positioning belt and alarm active. ECU placed for use of call light. OT Treatment Outcomes:: Safety device reapplied, Patient tolerated treatment well, Patient is progressing toward STG(s) and Goals met for this session OT Summary Plan of Care: Continue with current plan of care Pain Evaluation and Follow-up Pain Reassessment: 2 (06/22/19 1211) Nursing notified of patient's pain assessment: Not indicated - pain score 2 or less (06/22/19 1211) Therapy Minutes Individual Concurrent Co-Treat Time In : 1033 Time Out: 1211 Breaks/Pauses (Min): 0 mins Total Time with Patient (Min): 98 min Missed Minutes : 8 ROSEMARY MURPHY OT 06/22/2019 * Plan of Care - Yusef Huddleston RN - 06/22/2019 12:40 AM CDT Problem: Infection Goal: Absence of infection and prevention of transmission during hospitalization Outcome: Progressing Problem: Fall Safety Goal: Free from fall injury Outcome: Progressing Problem: Knowledge Deficit Goal: Patient and/or family demonstrate readiness to learn Outcome: Progressing Goal: Patient and/or family verbalizes understanding of education, and/or performs desired skill Outcome: Progressing Problem: Knowledge Deficit Goal: Patient/family/caregiver demonstrates understanding of disease process, treatment plan, medications, and discharge instructions Outcome: Progressing Problem: Potential for Compromised Skin Integrity Goal: Skin integrity is maintained or improved Outcome: Progressing Goal: Nutritional status is improving Outcome: Progressing Problem: Pain Goal: Patient's pain/discomfort is manageable Outcome: Progressing * Team Conference - EDWIN Wheeler - 06/21/2019 2:38 PM CDT Team Conference Note Date: 06/21/2019 Time: 2:38 PM Patient Name: Ajit Tyler Date of : 1960 Sex: Male Room/Bed: 215/215-1 Primary Insurance: [facility] Medicare Complete Admit Date/Time: 06/09/2019 4:28 PM Patient Active Problem List Diagnosis Date Noted ??? Cervical spinal cord injury 06/09/2019 ??? Sepsis 06/06/2019 ??? Spinal injury 05/31/2019 Team Members Present: Attendees: Chris Sousa MD, EDWIN Wheeler, Rosemary Murphy OT, Yesi Kellogg PT, Almita Enriquez [employer]eder in Attendance: ANNA MARIE MORTON SW Patient/Family Present: Patient Present: No Patient's Family Present: No Anticipated Discharge 07/08/2019 Discharge Plan: Discharge Destination Type: Own Home Back-up Discharge Destination: Own Home Potential Barriers to Return to Prior Living (Use comments to be specific): Caregiver limitations;Capacity for self care;Mobility challenge;Architectural/environmental barrier(s);Home modification challenge;DME issue;Potential need for skills/non-skilled services;Potential need for 24 hour care Suicide Prevention: No Concerns identified at this time Medications: Current Facility-Administered Medications: ??? acetaminophen (TYLENOL) tablet 650 mg, 650 mg, Oral, Q6H PRN, Jayjay Barnes MD, 650 mg at 06/20/19743 ??? Apixaban (ELIQUIS) tablet 2.5 mg, 2.5 mg, Oral, 2 times per day, Jayjay Barnes MD, 2.5 mg at 06/21/19826 ??? bisacodyl (DULCOLAX) suppository 10 mg, 10 mg, Rectal, Q48H, Chris Sousa MD, 10 mg at 06/19/191828 ??? bisacodyl (DULCOLAX) suppository 10 mg, 10 mg, Rectal, Daily PRN, Chris Sousa MD ??? calcium carbonate (TUMS) chewable tablet 500 mg, 500 mg, Oral, BID with meals, Jayjay Barnes MD, 500 mg at 06/21/19826 ??? cyclobenzaprine (FLEXERIL) tablet 5 mg, 5 mg, Oral, TID PRN, Jayjay Barnes MD, 5 mg at 06/16/192122 ??? docusate sodium (COLACE) capsule 100 mg, 100 mg, Oral, Once a day, Jayjay Barnes MD, 100 mg at 06/21/19826 ??? montelukast (SINGULAIR) tablet 10 mg, 10 mg, Oral, Once a day, Jayjay Barnes MD, 10 mg at 06/21/19826 ??? oxyCODONE (ROXICODONE) immediate release tablet 5 mg, 5 mg, Oral, Q4H PRN, Jayjay Barnes MD, 5 mg at 06/10/192109 ??? phenol 1.4 % 0.05 mL, 1 spray, Mouth/Throat, 3 times per day, ASHANTI Stone, 0.05 mL at 06/21/19 0828 ??? sodium chloride (OCEAN) 0.65 % nasal spray 1 spray, 1 spray, Each Nostril, 2 times per day, ASHANTI Stone, 1 spray at 06/20/192005 Pharmacy: Nursing Team Conference: Bladder Continent: Continent Bladder Devices: Santo catheter;External catheter Bowel Continent: Incontinent Bowel Devices: Adult brief Bowel Interventions: Suppository;Bowel program Pain: Patient denies pain Pain - Functional Impact: Turning Aggravating Factors Impacting Pain: Activity Duration;Positioning;Weakness Alleviating Factors Impacting Pain: Rest;Repositioning Non-Pharmacologic Pain Interventions: Position/Reposition;Rest Emotional/Spiritual Pain Interventions: Emotional Support;Empathetic Discussion Opiate Use Anticipated After Discharge: No Nutrition Intake: Oral Nutrition Level of Assistance: Total assistance Nutrition Interventions: Chin tuck Respiratory O2 Delivery System: None Respiratory Interventions: None Skin Intact: Incision;Pressure ulcer Skin Interventions: Weight shift/Turned respositioned every 2 hours;Specialty bed-mattress;Pressurerelief surface Wound Rx: None Safety Status: Good safety awareness;Follows instructions;High fall risk Safety Interventions: Education;Supervised activity;Performed rounding Cognitive Orientation: Person;Place;Time;Date Quality of Sleep: Restful Patient-Family barriers to learning: None Is patient on dialysis?: No PT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 feet after this. Therapeutic Activities and Neuromuscular Re-education: Perform FES LE ergometer this session for BLE to maintain tissue extensibility/ROM, reducing atrophy, increase localized blood flow, improve LE sensation, and improve strength needed for ambulation and endurance. The following parameters were used: RLE: Channel 1: right quads- 45 mA, Channel 2: right hamstrings- 39 mA, Channel 3: right gastroc- 37 mA, Channel 4: right tibialis- 42 mA. LLE: Channel 1: left quads- 47 mA, Channel 2: left hamstrings- 49 mA, Channel 3: left gastroc- 37 mA, Channel 4: left tibialis- 42 mA. Pt tolerates 1 minutewarm-up and 1 minute cool-down, tolerating 15 minutes of stimulation with cycling. Pt maintains B shoes donned throughout. Tolerates session well. No adverse skin reactions noted after doffing of electrodes. Distance traveled: 2.61 mi (2.11 previously), energy expended: 2.6 kcal (0.9), average power: 10.8 W (4.2), average asymmetry: 4 % L (2% L). PT Treatment Outcomes:: Compensatory strategies effectively used, Goals met for this session, Improved ambulation performance, Gait deviations reduced, Improved transfer ability noted, Improving overall functional endurance noted, Patient is progressing toward STG, Patient tolerated treatment well,Qualitative gains in function and Increasing strength PT Summary:: Session focus on ambulation, w/c propulsion, and FES bike for improving LE strength needed for mobility and transfers. Demonstrates improved ambulation distance and overall proprioception, with reduced instances of BLE scissoring and foot placement. Additionally shows improved wheelchair distance and all aspects of FES bike from previous performance- power output, energy expended, and distance traveled. Increased fatigue at completion of session. Patient remained up sitting in chair at end of session with pelvic positioning belt on, chair alarm in place. PT Summary Plan of Care: Continue with current plan of care Pain Evaluation and Follow-up Pain Reassessment: 2 (06/21/19 1204) Nursing notified of patient's pain assessment: Not indicated - pain score 2 or less (06/21/19 1204) Therapy Minutes Individual Concurrent Co-Treat Time In : 1032 Time Out: 1204 Breaks/Pauses (Min): 0 mins Total Time with Patient (Min): 92 min Missed Minutes : 2 YESI KELLOGG, PT 06/21/2019 * OT Treatment Note - Rosemary Murphy OT - 06/21/2019 9:01 AM CDT Occupational Therapy Treatment Patient Name: Ajit Tyler Patient Birthdate: 1960 Patient Subjective Report - Pt. Agreeable to therapy this . Pain Assessment Pain Context: Therapy Assessment Prior to Treatment (06/21/19900) Pain Assessment: None/denies pain (06/21/19900) Pain Interventions Education Provided: Patient (06/21/191030) Non-Pharmacologic Pain Interventions: Distractions, Position/Reposition, Relaxation, Rest, Cold Applied (06/21/191030) Emotional/Spiritual Pain Interventions: Emotional Support (06/21/191030) ADL Status: Dressing Lower Body: Total Assistance/Dependent Lower Body Dressing Where Assessed: Supine in bed Lower Body Dressing Comments: Total assist provided for LBD bed level this in prepartion for participation in therapeutic activity this . Assist to don shorts, socks, compression stockings, and shoes this date. Bed, Chair, Wheelchair Transfer: Total Assistance/Dependent Bed/Chair Transfer to: Wheelchair Bed/Chair Transfer from: Bed Bed/Chair Transfer Technique: Stand pivot Assistive Devices Used: No device Bed/Chair Transfer Comments: To R- pt. requires moderate assistance of 1 and minimal assistance of 1- Pt. requires moderate assist for standing balance to achieve stand from bed level. Pt. demos improved force production to achieve stand. Pt. attempts steps with pivot however demos decreased coordination and scissoring gait, requires assist to sit in w/c. Bed Mobility: Performed on bed, Short sit to - from supine and Rolling side to side Bed Mobility Level of Assistance: Maximal Assistance Bed Mobility Comment: Pt. Demos improved BLE function with ability to assist with management to EOB- demos ability to manage LLE to L side of bed and requires some assistance to complete management of RLE to EOB. Pt. Requires assist to manage trunk to achieve sitting EOB. Pt. Requires maximal assist for transition from supine to short sit EOB this date. Pt. Requires max assist for rolling side to side for participation in LBD bed level this date. Assist to position BUE for improved joint integrity and to decrease risk of nerve impingement. OT Therapeutic Activity: Therapeutic Exercise: Pt. participates in therapeutic exercise and strengthening in order to address and improve bilateral UE ROM and strength. Pt. seated in w/c- figure eight table utilized to placeBUE in gravity lessened position and for use of arm skate for participation in therapeutic activity. Pt. completes the following ROM and therapeutic exercise unilaterally, completing RUE first and LUE second: Pt. completes horizontal adduction/abduction 20 reps x 1 set, elbow flexion 15 reps x 1 set RUE, elbow flexion 10 reps x 1 set LUE, tricep extension 10 reps x 1 set. Pt. utilizes functional rest break between sets for muscle mormonism and use of energy conservation techniques. RUE: For bicep flexion, tactile cue provided at R shoulder to decrease compensatory shoulder movement. Pt. demos improved bicep strength with ability to achieve active contraction and partial ROM in gravity lessened position. R shoulder placed in shoulder flexion with neutral horizontal adduction/abduction and elbow at 90 degrees flexion for participation in tricep extension. Tillman point of controlat olecranon to ensure tricep contraction vs. compensatory shoulder movement. Pt. demos improved tricep strength with ability to achieve full extension with moderate difficulty noted. Pt. reports comfort of RUE with participation in RUE therapeutic exercise and ROM utilizing arm skate. LUE: Pt. demos decreased strength and increased soreness of L bicep this date as noted by increaseddifficulty achieving active contraction of bicep this date. L shoulder placed in shoulder flexion with neutral horizontal adduction/abduction and elbow at 90 degrees flexion for participation in tricep extension. Tillman point of control at olecranon to ensure tricep contraction vs. compensatory shoulder movement. Pt. Continues to demo improved tricep strength with improved ROM and improved muscle contraction. Pt. Demonstrates difficulty with initiating horizontal adduction of LUE this date and benefits from min tactile assist to initiate. Increased time required for participation due to fatigue this date. ROM: Pt. Participates in PROM to bilateral UE this date to address joint integrity and ROM of BUE in preparation for neuromuscular re-education and increased independence with ADLs and functional transfers. Pt. Demos good joint mobility of bilateral fingers, wrist, elbow, and shoulder. 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 Pt. Participates in prolonged low load stretch of digits of BUE- pt. Demos improved finger flexion of bilateral hands inpreparation for functional grasp. Pt. Demonstrates comfort with ROM of LUE, however reports pain ofR shoulder blade following participation in range of RUE. Pain modalities initiated following participation. Pt. Participates in AROM of L elbow flexors and extensors this date to improve ROM and strength forimproved functional use in preparation for future ADL participation. Cloth utilized under LUE and use of baby powder on figure eight table surface to decrease resistance. Pt. Demos difficulty with achieving active bicep flexion this date due to increased soreness and decreased strength. Pt. Demonstrates improved tricep strength with ability to achieve contraction this date. Other: Pt. Participates in repositioning seated in w/c as pain management technique to address R shoulder pain. Pt. Transitions to increased upright sitting- pt. Reports no change in pain with participation in repositioning. Modalities: Modalities: Yes Number Minutes Cold Pack: 10 (as pain management technique- pt. reports increased comfort and decreased pain with application ) Cold Pack Location: Right and Shoulder (at R scapula ) Treatment, Outcomes and Plan: OT Narrative:: Pt. Limited by R shoulder pain this date- pt. Continues to demonstrate improved BUE shoulder ROM with participation in therapeutic activity. Pt. Would benefit from continued participation in intensive OT rehabilitation services in order to address standing balance, BUE ROM, coordination, strength, and ROM, pain management, and functional endurance for increased independence with ADLs and functional transfers. Pt. Seated in w/c with pelvic positioning belt and alarm active. OT Treatment Outcomes:: Safety device reapplied, Patient is progressing toward STG(s) and Goals metfor this session OT Summary Plan of Care: Continue with current plan of care Pain Evaluation and Follow-up Pain Reassessment: 8 (06/21/19 1031) Nursing notified of patient's pain assessment: Primary Nurse (06/21/19 1031) Therapy Minutes Individual Concurrent Co-Treat Time In : 0901 Time Out: 1031 Breaks/Pauses (Min): 0 mins Total Time with Patient (Min): 90 min Missed Minutes : 0 ROSEMARY MURPHY OT 06/21/2019 * Plan of Care - Katrina Ventura RN - 06/20/2019 7:56 PM CDT Problem: Infection Goal: Absence of infection and prevention of transmission during hospitalization Outcome: Progressing Problem: Fall Safety Goal: Free from fall injury Outcome: Progressing Problem: Knowledge Deficit Goal: Patient and/or family demonstrate readiness to learn Outcome: Progressing Goal: Patient and/or family verbalizes understanding of education, and/or performs desired skill Outcome: Progressing Problem: Discharge Planning Goal: Discharge to home or other facility with appropriate resources Outcome: Progressing Goal: solar sales associate will develop a plan to decrease their burden and enhance comfort in role Outcome: Progressing Problem: Knowledge Deficit Goal: Patient/family/caregiver demonstrates understanding of disease process, treatment plan, medications, and discharge instructions Outcome: Progressing Problem: Potential for Compromised Skin Integrity Goal: Skin integrity is maintained or improved Outcome: Progressing Goal: Nutritional status is improving Outcome: Progressing Problem: Urinary Incontinence Goal: Perineal skin integrity is maintained or improved Outcome: Progressing Problem: Bowel Incontinence Goal: Perineal Skin Integrity is Maintained or Improved Outcome: Progressing Problem: Pain Goal: Patient's pain/discomfort is manageable Outcome: Progressing * Plan of Care - Susana Addison RD - 06/20/2019 4:01 PM CDT Problem: Inadequate or Predicted Suboptimal Energy or Oral Intake Description Related to: Decreased ability to consume sufficient energy As Evidenced By: meal intakes <50% Goal: Clinical Nutrition Goal Outcome: Not Progressing Flowsheets Taken 06/10/[address] Primary Goal: Adequate Meals and Snack/Oral Nutrition Supplement Intake Primary Indicator/Monitor: 50 - 100% Secondary Goal: Weight Maintenance Secondary Indicator/Monitor: No weight loss Taken 06/20/[address] Primary Goal Progress: Ongoing Secondary Goal Progress: Ongoing * OT Weekly Progress Note - Rosemary Murphy OT - 06/20/2019 3:49 PM CDT Occupational Therapy Weekly Progress Note Patient Name: Ajit Tyler Patient Birthdate: 1960 OT Current Functional Status: Mr. Tyler is currently completing the following: FEEDING: with total assistance. BATHING: with total assistance. TOILETING: with total assistance, for catheter management. UPPER BODY DRESSING: with total assistance, for gown. LOWER BODY DRESSING: with total assistance, bed level. FOOTWEAR: with total assistance. BED <> W/C TRANSFER: with total assistance, squat pivot transfer, improved to maximal assistance of 1 and standby assistance of 1 per physical therapy report. SIT TO STAND: with moderate assistance, demonstrating improved force production. LYING TO SITTING: with total assistance. SITTING TO LYING: with total assistance. ROLLING SIDE TO SIDE: with maximal assistance. Mr. Tyler has demonstrated minimal progress in the above areas due to impaired functional use of BUE, however has demonstrated great improvement in BUE strength. Mr. Tyler demonstrates improved strength with bilateral biceps, triceps, shoulders, and wrist extensors. Mr. Tyler also has demonstrated improved activity tolerance, core strength, sitting tolerance, force production, and functional endurance for improved participation in therapeutic activity. He has demonstrated good tolerance of and participation in neuromuscular re- education to improve BUE strength, ROM, and coordination in preparation for functional use to increase independence with ADLs. Mr. Tyler continues to present withimpaired standing balance, decreased core strength, pain, decreased functional strength and endurance, impaired BUE coordination, strength, ROM, and functional use, and decreased sitting balance limiting safe and independent participation in ADLs and functional transfers. Mr. Tyler would benefit from continued participation in intensive OT rehabilitation services in order address self-care, functional transfers, and continued barriers to safe and independent discharge to least restrictive environment. Facilitating Factors in Goal Achievement: Patient understanding and knowledge, Patient compliance, Use of compensatory strategies, Improved strength, Improved functional mobility, Improved balance, Improved tone and Decrease in pain Barriers to Goal Achievement: Pain, ROM limitations, Strength limitations, Balance deficits, Motor control deficits, Diminished endurance and Tone deficits Date Last Assessed: 06/20/2019 Patient needs assistance with the following activities: Activities of daily living, Going out in the community, Use of bathroom equipment, Positioning, Rolling and Sitting balance Will patient require a prosthetic or orthotic device upon discharge: No CARE Score Tillman: 6: Independent. Index provides no assistance with tasks. A device may or may not have been used. 5: Set-up or clean-up assistance. Index sets up or cleans up, but does not assist with tasks. Index may have assisted prior to or following the activity. 4: Supervision or touching assistance. Index provides verbal cues or touching/steadying or contactguard assistance. Assistance may be provided throughout the activity or intermittently. 3: Partial/moderate assistance. Index does less than half the effort. Index lifts, holds, or supports trunk or limbs, but provides less than half the effort. 2: Substantial/maximal assistance. Index does more than half the effort. Index lifts or holds trunk or limbs, and provides more than half the effort. 1: Dependent. Index does all of the effort, or the assistance of two or more helpers is required for the patient to complete the activity. -: Inconsistent or incomplete documentation Activity not attempted values: 7: Patient refused 9: Not applicable - Not attempted and the patient did not perform this activity prior to the current illness, exacerbation, or injury. 10: Not attempted due to environmental limitations (e.g., lack of equipment, weather constraints) 88: Not attempted due to medical condition or safety concerns Jail Goals: Goal Status on Admission Current Status Eating LTG: Partial/moderate assistance(with AE and modified techniques as needed) Eating - CARE Score: 1 (06/10/1934 : Jayla Cavazos) Eating - CARE Score: 1 (06/20/191547) Oral Hygiene - CARE Score: 9 (06/10/1934 : Jayla Cavazos) Oral Hygiene - CARE Score: 9 (06/20/191547) Toileting Hygiene LTG: Dependent(with no verbal cues to be able to direct self- care) Toileting Hygiene - CARE Score: 1 (06/10/1934 : Jayla Cavazos) Toileting Hygiene - CARE Score: 1 (06/20/191547) Shower/Bathe Self LTG: Partial/moderate assistance(with AE and modified techniques as needed) Shower/Bathe Self - CARE Score: 1 (06/10/1934 : Jayla Cavazos) Shower/Bathe Self - CARE Score: 1 (06/20/191547) Upper Body Dressing LTG: Partial/moderate assistance(with modified techniques and AE as needed) Upper Body Dressing - CARE Score: 10 (06/10/1934 : Jayla Cavazos) Upper Body Dressing - CARE Score: 1 (06/20/191547) Lower Body Dressing LTG: Substantial/maximal assistance(with no verbal cues to be able to direct self-care) Lower Body Dressing - CARE Score: 1 (06/10/19 0834 : Jayla Kj) Lower Body Dressing -CARE Score: 1 (06/20/19 1548) Putting On/Taking Off Footwear - CARE Score: 1 (06/10/1934 : Jayla Kj) Putting On/Taking Off Footwear - CARE Score: 1 (06/20/191547) Roll Left and Right LTG: Partial/moderate assistance Roll Left and Right - CARE Score: 1 (06/10/19 0834 : Jayla Kj) Roll Left and Right - CARE Score: 2 (06/20/191547) Sit to Lying - CARE Score: 1 (06/10/19833 : Jayla Kj) Sit to Lying - CARE Score: 1 (06/20/191547) Lying to Sitting on Side of Bed - CARE Score: 1 (06/10/19833 : Jayla Kj) Lying to Sitting on Side of Bed - CARE Score: 1 (06/20/191547) Sit to Stand LTG: Partial/moderate assistance Sit to Stand - CARE Score: 1 (06/10/1934 : Jayla Kj) Sit to Stand - CARE Score: 2 (06/20/191547) Chair/Ccj-pm-Iakdz Transfer LTG: Partial/moderate assistance Chair/Pid-ou-Oajbz Transfer - CARE Score: 1 (06/10/1934 : Jayla Kj) Chair/Ioc-vu-Qxygc Transfer - CARE Score: 1 (06/20/191547) Toilet Transfer - CARE Score: 7 (06/10/1934 : Jayla Kj) Toilet Transfer - CARE Score: 1 (06/20/191547) Additional Goals & Status: N/A OT Short Term Goal 1: Focus: Eating Details: Pt will feed self with maximal assistance utilizing AE and modified techniques as needed. Expected Achievement Date: 06/27/2019 Goal Status: Not Achieved OT Short Term Goal 2: Focus: Shower/Bathe Details: Pt will complete bathing with maximal assistance utilizing AE and modified techniques as needed. Expected Achievement Date: 06/27/2019 Goal Status: Not Achieved OT Short Term Goal 3: Focus: Upper Body Dressing Details: Pt will complete UBD with maximal assistance utilizing AE and modified techniques. Expected Achievement Date: 06/27/2019 Goal Status: Not Achieved OT Short Term Goal 4: Focus: Lower Body Dressing Details: Pt will complete LBD with total assistance to be able to direct self care. (PROGRESSING) Expected Achievement Date: 06/27/2019 Goal Status: Not Achieved OT Short Term Goal 5: Focus: Roll Left and Right Details: Pt will complete rolling with maximal assistance. (MET OF 06/12) With moderate assistance Expected Achievement Date: 06/27/2019 Goal Status: Not Achieved OT Short Term Goal 6: Focus: Sit to Stand Details: Pt will complete sit to stand with maximal assistance. (MET OF 06/12) With moderate assistance (MET OF 06/12) With minimal assistance Expected Achievement Date: 06/27/2019 Goal Status: Established OT Short Term Goal 7: Focus: Chair/Bed Transfer Details: Pt will complete bed to chair transfer with maximal assistance. (PROGRESSING) Expected Achievement Date: 06/27/2019 Goal Status: Partially Achieved ROSEMARY MURPHY OT 06/20/2019 * PT Weekly Progress Note - Yesi Kellogg PT - 06/20/2019 3:38 PM CDT PT Weekly Progress Note Patient Name: Ajit Tyler Patient Birthdate: 1960 PT CURRENT FUNCTIONAL STATUS: PT Current Functional Status: PT Current Functional Status: Mr. Tyler is making steady progress towards his [facility] mobility goals as evidenced by improved independence with stand pivot transfers, ambulation distances and assist levels, and wheelchair propulsion. His current functional status is as follows: TRANSFERS- sit to/from stand with maximal assistance of one (unchanged), stand pivot transfer with maximal assistance of one and SBA of another for safety (improved from max assist of one and additional min-mod/max A of another), stand pivot car transfer with maximal assistance of one and moderate assistance of another (unchanged), supine to sitting with maximal assist of one and able to manage BLE without assist (improved from total A), sitting EOB to supine with total A for management of trunk and BLE (unchanged), rolling side to side with maximal assistance of one (unchanged), AMBULATION- ambulates 12 feet without assistive device and moderate to maximal assistance of 2 bilaterally for weight shifting and LE foot placement at times due to scissoring gait although improving, with w/c follow for safety- limited in distance by BLE fatigue/weakness and ataxia, decreased trunk control (improved from 8 feet with maximal assistance of 2 and B knee block), unsafe to attempt uneven surfaces at this time, ELEVATIONS- unsafe to attempt at this time, 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 Mr. Tyler has initiated [employer] gait training for improved independence and coordination of overground gait and notable improvements demonstrated after initial session- greatly improved foot placement and coordination of stepping during ambulation and requiring less physical assist with foot placement. Current barriers include impaired standing balance, UE/LE muscle strength, ataxic movements, muscle spasms/tone, tolerance to standing, activity tolerance, proprioception, and impaired to absentsensation, motor planning. Mr. Tyler would continue to benefit from further intensive skilled physical therapy services in order to continue to address these deficits and maximize independence with functional mobility and caregiver direction. Factors in Goal Achievement: Facilitating Factors: Patient understanding and knowledge, Improved functional mobility, Improved tone, Patient compliance, Patient motivation, Improved strength, Use of compensatory strategies, Improved function and Decrease in pain Barriers: Balance deficits, Diminished endurance, Pain, Strength limitations, Motor control deficits, Spasticity and Tone deficits Date Last Assessed: 06/20/2019 CARE Score Tillman: 6: Independent. Index provides no assistance with tasks. A device may or may not have been used. 5: Set-up or clean-up assistance. Index sets up or cleans up, but does not assist with tasks. Index may have assisted prior to or following the activity. 4: Supervision or touching assistance. Index provides verbal cues or touching/steadying or contactguard assistance. Assistance may be provided throughout the activity or intermittently. 3: Partial/moderate assistance. Index does less than half the effort. Index lifts, holds, or supports trunk or limbs, but provides less than half the effort. 2: Substantial/maximal assistance. Index does more than half the effort. Index lifts or holds trunk or limbs, and provides more than half the effort. 1: Dependent. Index does all of the effort, or the assistance of two or more helpers is required for the patient to complete the activity. -: Inconsistent or incomplete documentation Activity not attempted values: 7: Patient refused 9: Not applicable - Not attempted and the patient did not perform this activity prior to the current illness, exacerbation, or injury. 10: Not attempted due to environmental limitations (e.g., lack of equipment, weather constraints) 88: Not attempted due to medical condition or safety concerns Jail Goals: Goal Status on Admission Current Status Car Transfer LTG: Supervision or touching assistance(Patient will perform car transfer using least restrictive assistive device and supervision) Car Transfer - CARE Score: 1 (06/10/191240 : Leander Kellogg PT) Car Transfer - CARE Score: 1 (06/20/191248) Walk 10 Feet - CARE Score: 88 (06/10/191240 : Yesi Kellogg PT) Walk 10 Feet - CARE Score: 1 (06/20/191248) Walk 50 Feet with Two Turns LTG: Supervision or touching assistance(Patient will ambulate 50 feet using least restrictive assistive device and supervision) Walk 50 Feet with Two Turns - CARE Score: 88 (06/10/191240 : Yesi Kellogg PT) Walk 50 Feet with Two Turns - CARE Score: 88 (06/20/191248) Walk 150 Feet - CARE Score: 88 (06/10/191240 : Yesi Kellogg PT) Walk 150 Feet - CARE Score: 88 (06/20/191248) Walking 10 Feet on Uneven Surfaces - CARE Score: 88 (06/10/191240 : Yesi Kellogg PT) Walking 10 Feet on Uneven Surfaces - CARE Score: 88 (06/20/191248) 1 Step (Curb) - CARE Score: 88 (06/10/191240 : Yesi Kellogg PT) 1 Step (Curb) - CARE Score: 88 (06/20/191248) 4 Steps LTG: Partial/moderate assistance(Patient will ascend/descend 4 steps with minimal assistance) 4 Steps - CARE Score: 88 (06/10/191240 : Yesi Kellogg PT) 4 Steps - CARE Score: 88 (06/20/191248) 12 Steps - CARE Score: 88 (06/10/19 1241 : Yesi Kellogg, PT) 12 Steps - CARE Score: 88 (06/20/19 124) Picking Up Object - CARE Score: 88 (06/10/19 1241 : Yesi Kellogg, PT) Picking Up Object - CARE Score: 88 (06/20/19 124) Wheel 50 Feet with Two Turns - CARE Score: 1 (06/10/19 124 : Yesi Kellogg, PT) Wheel 50 Feet with Two Turns - CARE Score: 2 (06/20/19 124) Wheel 150 Feet LTG: Independent(Patient will propel 150 feet over level surfaces using appropriate compensatory strategies and modified independence) Wheel 150 Feet - CARE Score: 1 (06/10/19 124 : Yesi Kellogg, PT) Wheel 150 Feet - CARE Score: 1 (06/20/191248) PT Other Family Mediator Goals Most Recent Value Other PT Family Mediator Goals Other Goals - Jail Jail 1, Family Mediator 2 Filed on: 06/10/2019 1248 Other Family Mediator Goal 1 Patient will transfer sit to/from stand with minimal assistance Filed on: 06/20/2019 1538 Other Jail Goal 1 Status Not Achieved Filed on: 06/20/2019 1538 Other Jail Goal 2 Patient will transition supine to/from sitting with minimal assistance Filedon: 06/20/2019 1538 Other Jail Goal 2 Status Not Achieved Filed on: 06/20/2019 1538 Expected Achievement Date 08/05/19 Filed on: 06/10/2019 1248 PT Short Term Goal 1: Focus: Car Transfer Level of Assistance to Meet Short Term Goal: Physical assistance 50%-74% Details: Patient will perform car transfer with maximal assistance of one Expected Achievement Date: 06/28/2019 Goal Status: Not Achieved PT Short Term Goal 2: Focus: Walking Level of Assistance to Meet Short Term Goal: Total assistance Details: Patient will ambulate 30 feet without assistive device and maximal assistance x 2 for weight shifting and blocking BLE Expected Achievement Date: 06/28/2019 Status: Not Achieved Walking Distance: 30 feet PT Short Term Goal 3: Focus: Other Level of Assistance to Meet Short Term Goal: Physical assistance 50%-74% Details: Patient will perform stand pivot transfer without assistive device and maximal assistance of one Expected Achievement Date: 06/28/2019 Status: Partially Achieved PT Short Term Goal 4: Focus: Other Level of Assistance to Meet Short Term Goal: Physical assistance 25%-49% Details: Patient will transfer sit to stand with moderate assistance of 1 Expected Achievement Date: 06/28/2019 Goal Status: Partially Achieved PT Short Term Goal 5: Focus: Wheelchair Management Level of Assistance to Meet Short Term Goal: Supervision Details: Patient will propel wheelchair 50 feet with bilateral lower extremities and supervision Expected Achievement Date: 06/28/2019 Goal Status: Not Achieved Wheelchair Distance: 50 feet YESI KELLOGG, PT 06/20/2019 * OT Treatment Note - Rosemary Murphy OT - 06/20/2019 10:40 AM CDT Occupational Therapy Treatment Patient Name: Ajit Tyler Patient Birthdate: 1960 Patient Subjective Report - Tired pt. Reports following participation in previous therapy session. Pt. Agreeable to therapy this date. Pain Assessment Pain Context: Therapy Assessment Prior to Treatment (06/20/19 1040) Pain Assessment: NRS 0-10 (06/20/19 1040) Pain Score: 3 (06/20/19 1040) Pain Type: Acute pain (06/20/19 1040) Pain Location: Shoulder (06/20/19 1040) Pain Orientation: Right, Left (06/20/19 1040) Pain Descriptors: Aching (06/20/19 1040) Pain Interventions Education Provided: Patient (06/20/19 1208) Non-Pharmacologic Pain Interventions: Distractions, Exercise/Activity, Position/Reposition, Relaxation, Rest (06/20/19 1208) Emotional/Spiritual Pain Interventions: Emotional Support (06/20/19 1208) OT Therapeutic Activity: Therapeutic Exercise: Pt. Participates in BUE strengthening, ROM, and coordination this date utilizing SaeboMAS. Pt. Utilizes MAS to decrease effect of gravity for improved ROM and strengthening due to decreased strength of BUE. Pt. Completes the following unilaterally, beginning on R and completing on L side following: shoulder horizontal adduction/abduction 20 reps x 2 sets, bicep flexion 15 reps x 2 sets, tricep extension 10 reps x 3 sets, forward chest press 20 reps x 2 sets. For bicep flexion, resistance provided at shoulder to encourage isolation of bicep to decrease compensatory movement- pt. Nahun improved strength of biceps bilaterally this date. Improves ROM in gravity eliminated plane with participation. Facilitation at elbow and shoulder to isolate triceps for elbow extension in gravity eliminated plane- pt. Nahun improved tricep strength this date with active contraction without use of electrical stimulation. Pt. Unable to achieve full ROM for tricep extension, however demos improved ROM this date. With final set of elbow flexion and elbow extension, .5 lb wrist weight added to increase strengthening. Paul wrap utilized this date for improved positioning of UE for participation. With continued participation in chest press, pt. Tessieos compensatory movement trunk and shoulder movement to achieve reach of desired target- rest breaks utilized between sets for muscle mormonism and energy conservation techniques. Pt. Participates in gross motor coordination task utilizing SaeboMAS, demoing decreased coordination for ability to reach desired target due to decreased UE strength. Pt. Reports comfort of BUE with participation. RUE: SaeboMAS level 7-7.5 LUE: SaeboMAS level 7.5-8 Neuromuscular Re-education: Neuromuscular Re-education: Yes Comments: Pt. Nahun good tolerance to neuromuscular re-education with electrical stimulation this date. No irritation or redness noted with removal of stimulation pads. Pt. Tessieos good carryover of education regarding active contraction with facilitation of neuromuscular re-education. With participation, pt. Nahun improved ability to increased ROM of bilateral wrist extensors. Modalities: Modalities: Yes RUE Electrical Stimulation Location: Wrist RUE Electrical Stimulation Action: Extension- against gravity RUE Electrical Stimulation Parameters: 43 mA CC. 50 bps burst frequency, 5/5 cycle time with 2 second ramp. Nigerien stimulation reciprocal with opposite wrist extensor. RUE Electrical Stimulation Goals: Strength and Neuromuscular facilitation LUE Electrical Stimulation Location: Wrist LUE Electrical Stimulation Action: Extension- against gravity LUE Electrical Stimulation Parameters: 44 mA CC. 50 bps burst frequency, 5/5 cycle time with 2 second ramp. Nigerien stimulation reciprocal with opposite wrist extensor. LUE Electrical Stimulation Goals: Strength and Neuromuscular facilitation Treatment, Outcomes and Plan: OT Narrative:: Pt. Nahun improved BUE strength this date, demoing improved muscle contraction and strength of bilateral triceps and biceps. Pt. Would benefit from continued participation in intensiveOT rehabilitation services in order to address sitting balance, BUE coordination, strength, and ROM, functional endurance, and overall strength for increased independence with ADLs and functional transfers. Pt. Seated in w/c at end of session- tech present for participation in feeding. OT Treatment Outcomes:: Safety device reapplied, Patient tolerated treatment well, Patient is progressing toward STG(s), Goals met for this session, Increased strength or muscular endurance (comment on location) and Increased ROM (comment on location) OT Summary Plan of Care: Continue with current plan of care Pain Evaluation and Follow-up Pain Reassessment: 4 (06/20/19 1208) Nursing notified of patient's pain assessment: Other (comment)(declines RN notification ) () Therapy Minutes Individual Concurrent Co-Treat Time In : 1040 Time Out: 1208 Breaks/Pauses (Min): 0 mins Total Time with Patient (Min): 88 min Missed Minutes : -2 ROSEMARY MURPHY OT 06/20/2019 * PT Treatment Note - Yesi Kellogg PT - 06/20/2019 9:00 AM CDT PT Treatment Patient Name: Ajit Tyler Patient Birthdate: 1960 Patient Subjective Report - Pt agreeable to participation in therapy session. Pain Assessment Pain Context: Therapy Assessment Prior to Treatment (06/20/19900) Pain Assessment: None/denies pain (06/20/19900) Pain Score: 0 - No pain (06/20/19900) Bed Mobility: Performed on bed, Short sit to - from supine and Rolling side to side Bed Mobility Level of Assistance: Maximal Assistance Bed Mobility Comment: Max A rolling to L side at trunk, although pt is able to flex R hip/knee to aide in pushing to side with LEs. Requires max A at trunk to reach upright sitting EOB after pt is able to manage BLE off EOB without assist. Transfer to 1: Stand Transfer from 1: Sit Technique 1: Sit to stand Transfer Level of Assistance 1: Maximal Assistance Trials/Comments1: Max A for force production Transfer to 2: Wheelchair Transfer from 2: Bed Technique 2: Stand pivot Transfer Level of Assistance 2: Maximal Assistance Trials/Comments 2: Max A for SPT without AD due to difficulty initiating stepping with LEs during transfer Therapeutic Activities and Neuromuscular Re-education: LOKOMAT: Perform lokomat gait training this session for improved B LE muscle strength and muscle activation, tissue extensibility/ROM, circulation, improved weight bearing, tolerance to upright and proprioception needed for improved speeds and gait pattern during over-ground gait. Skin check performed before and after treatment with no adverse reactions noted. Maintains standing in two bouts x 2 min each while donning harness due to LE fatigue and falling back into chair initially. Requires mod-max A x 1 and occasional min A of another tomaintain- pt becomes increasingly fatigued, however able to respond to cues to stand tall by pulli ng shoulders back to reach upright when leaning far fwd. Time spent for making adjustments to gait pattern and reaching dynamic body weight support phase over treadmill. Pt has one instance of auto-stop when catching LLE on treadmill with decreased step length and fatigue. Patient participates in two augmented performance feedback activities (Thirsty Hiker and FASTER!) for 5 minutes each to improve muscle activation, force production, motor planning and step length on BLE during swing and stance phases. Pt is progressively fatiguing throughout in BLE noted by decreasing B foot clearance, however responds well to visual and tactile cues for increasing step length and upright posture. Requires 2 min rest break in between augmented performance activities due to fatigue. Education provided throughout regarding benefits and rationale of lokomat use, principles of neuroplasticity, and carryover to functional tasks. % Body Weight Support: 44% minimum (47% previously) and 64% average (50%), Distance: 1,443 feet (1,348), Duration: 17:03 min (15:07), Guidance Force: average 95% (100%), Guidance Force minimum: 75% (100%), Speed: 1.0 mph average (1.0), 1.1 mph max (1.1) speed. PT Treatment Outcomes:: Compensatory strategies effectively used, Goals met for this session, Patient is progressing toward STG and Patient tolerated treatment well PT Summary:: Perform Lokomat gait training during session for carryover to improved overground gaitand transfers. Tolerates x 17 min total and performs 2 augmented performance feedback activities with 2 min rest break in between each activity. Increased fatigue noted this date with standing mobility tasks. Patient remained up sitting in chair at end of session with pelvic positioning belt on, chair alarm in place, awaiting arrival of OT for continuation of therapies. PT Summary Plan of Care: Continue with current plan of care Therapy Minutes Individual Concurrent Co-Treat Time In : 0900 Time Out: 1036 Breaks/Pauses (Min): 0 mins Total Time with Patient (Min): 96 min Missed Minutes : 6 YESI KELLOGG, PT 06/20/2019 * Plan of Care - Katrina Ventura RN - 06/19/2019 8:30 PM CDT Problem: Infection Goal: Absence of infection and prevention of transmission during hospitalization Outcome: Progressing Problem: Fall Safety Goal: Free from fall injury Outcome: Progressing Problem: Knowledge Deficit Goal: Patient and/or family demonstrate readiness to learn Outcome: Progressing Goal: Patient and/or family verbalizes understanding of education, and/or performs desired skill Outcome: Progressing Problem: Discharge Planning Goal: Discharge to home or other facility with appropriate resources Outcome: Progressing Goal: solar sales associate will develop a plan to decrease their burden and enhance comfort in role Outcome: Progressing Problem: Knowledge Deficit Goal: Patient/family/caregiver demonstrates understanding of disease process, treatment plan, medications, and discharge instructions Outcome: Progressing Problem: Potential for Compromised Skin Integrity Goal: Skin integrity is maintained or improved Outcome: Progressing Goal: Nutritional status is improving Outcome: Progressing Problem: Urinary Incontinence Goal: Perineal skin integrity is maintained or improved Outcome: Progressing Problem: Bowel Incontinence Goal: Perineal Skin Integrity is Maintained or Improved Outcome: Progressing Problem: Pain Goal: Patient's pain/discomfort is manageable Outcome: Progressing * Plan of Care - Sebastien Castaneda RN - 06/19/2019 4:18 PM CDT Problem: Infection Goal: Absence of infection and prevention of transmission during hospitalization Outcome: Progressing Problem: Fall Safety Goal: Free from fall injury Outcome: Progressing Problem: Knowledge Deficit Goal: Patient and/or family demonstrate readiness to learn Outcome: Progressing Goal: Patient and/or family verbalizes understanding of education, and/or performs desired skill Outcome: Progressing Problem: Discharge Planning Goal: Discharge to home or other facility with appropriate resources Outcome: Progressing Goal: solar sales associate will develop a plan to decrease their burden and enhance comfort in role Outcome: Progressing Problem: Knowledge Deficit Goal: Patient/family/caregiver demonstrates understanding of disease process, treatment plan, medications, and discharge instructions Outcome: Progressing Problem: Potential for Compromised Skin Integrity Goal: Skin integrity is maintained or improved Outcome: Progressing Goal: Nutritional status is improving Outcome: Progressing Problem: Urinary Incontinence Goal: Perineal skin integrity is maintained or improved Outcome: Progressing Problem: Bowel Incontinence Goal: Perineal Skin Integrity is Maintained or Improved Outcome: Progressing Problem: Pain Goal: Patient's pain/discomfort is manageable Outcome: Progressing * Plan of Care - Katrina Ventura RN - 06/18/2019 8:12 PM CDT Problem: Infection Goal: Absence of infection and prevention of transmission during hospitalization Outcome: Progressing Problem: Fall Safety Goal: Free from fall injury Outcome: Progressing Problem: Knowledge Deficit Goal: Patient and/or family demonstrate readiness to learn Outcome: Progressing Goal: Patient and/or family verbalizes understanding of education, and/or performs desired skill Outcome: Progressing Problem: Discharge Planning Goal: Discharge to home or other facility with appropriate resources Outcome: Progressing Goal: solar sales associate will develop a plan to decrease their burden and enhance comfort in role Outcome: Progressing Problem: Knowledge Deficit Goal: Patient/family/caregiver demonstrates understanding of disease process, treatment plan, medications, and discharge instructions Outcome: Progressing Problem: Potential for Compromised Skin Integrity Goal: Skin integrity is maintained or improved Outcome: Progressing Goal: Nutritional status is improving Outcome: Progressing Problem: Urinary Incontinence Goal: Perineal skin integrity is maintained or improved Outcome: Progressing Problem: Bowel Incontinence Goal: Perineal Skin Integrity is Maintained or Improved Outcome: Progressing Problem: Pain Goal: Patient's pain/discomfort is manageable Outcome: Progressing * Plan of Care - Jade Barnes RN - 06/18/2019 2:15 AM CDT Problem: Infection Goal: Absence of infection and prevention of transmission during hospitalization 06/18/2019340 by Jade Barnes RN Outcome: Progressing 06/17/2019 135 by Jade Barnes RN Outcome: Progressing Problem: Fall Safety Goal: Free from fall injury 06/18/2019340 by Jade Barnes RN Outcome: Progressing 06/17/2019 135 by Jade Barnes RN Outcome: Progressing Problem: Knowledge Deficit Goal: Patient and/or family demonstrate readiness to learn 06/18/2019340 by Jade Barnes RN Outcome: Progressing 06/17/2019 135 by Jade Barnes RN Outcome: Progressing Goal: Patient and/or family verbalizes understanding of education, and/or performs desired skill 06/18/2019340 by Jade Barnes RN Outcome: Progressing 06/17/2019 135 by Jade Barnes RN Outcome: Progressing Problem: Discharge Planning Goal: Discharge to home or other facility with appropriate resources 06/18/2019340 by Jade Barnes RN Outcome: Progressing 06/17/2019 135 by Jade Barnes RN Outcome: Progressing Goal: solar sales associate will develop a plan to decrease their burden and enhance comfort in role 06/18/2019340 by Jade Barnes RN Outcome: Progressing 06/17/2019 135 by Jade Barnes RN Outcome: Progressing Problem: Knowledge Deficit Goal: Patient/family/caregiver demonstrates understanding of disease process, treatment plan, medications, and discharge instructions 06/18/2019340 by Jade Barnes RN Outcome: Progressing 06/17/2019 135 by Jade Barnes RN Outcome: Progressing Problem: Potential for Compromised Skin Integrity Goal: Skin integrity is maintained or improved 06/18/2019340 by Jade Barnes RN Outcome: Progressing 06/17/2019 135 by Jade Barnes RN Outcome: Progressing Goal: Nutritional status is improving 06/18/2019340 by Jade Barnes RN Outcome: Progressing 06/17/2019 135 by Jade Barnes RN Outcome: Progressing Problem: Urinary Incontinence Goal: Perineal skin integrity is maintained or improved 06/18/2019 034 by Jade Barnes RN Outcome: Progressing 06/17/2019 1351 by Jade Barnes RN Outcome: Progressing Problem: Bowel Incontinence Goal: Perineal Skin Integrity is Maintained or Improved 06/18/2019340 by Jade Barnes RN Outcome: Progressing 06/17/2019 1351 by Jade Barnes RN Outcome: Progressing Problem: Pain Goal: Patient's pain/discomfort is manageable 06/18/2019340 by Jade Barnes RN Outcome: Progressing 06/17/2019 1351 by Jade Barnes RN Outcome: Progressing * OT Treatment Note - Jayla Cavazos - 06/17/2019 11:20 AM CDT Occupational Therapy Treatment Patient Name: Ajit Tyler Patient Birthdate: 1960 Patient Subjective Report - Pt agreeable to therapy this date. Pain Assessment Pain Context: Therapy Assessment Prior to Treatment (06/17/19 112) Pain Assessment: NRS 0-10 (06/17/19 1120) Pain Score: 4 - Moderate Pain (06/17/19 1120) Pain Location: Neck (06/17/19 1120) Pain Descriptors: Aching (06/17/19 1120) Pain Interventions Education Provided: Patient (06/17/19 1215) Non-Pharmacologic Pain Interventions: Distractions, Exercise/Activity, Position/Reposition, Relaxation, Rest (06/17/19 1215) Emotional/Spiritual Pain Interventions: Emotional Support (06/17/19 1215) ADL Status: Bed, Chair, Wheelchair Transfer: Moderate Assistance Bed/Chair Transfer to: Wheelchair Bed/Chair Transfer from: Wheelchair Bed/Chair Transfer Technique: Stand to sit and Sit to stand Bed/Chair Transfer Comments: Pt demonstrates improved force production through BLE with bilateral knee block. Pt provided Roho cushion this for improved skin integrity and increased sitting tolerance in w/c. OT Therapeutic Activity: Other: Pt. Participates in neuromuscular re-education this utilizing functional electrical stimulation (FES) bike this in order to address and improve BUE strength, ROM, coordination, and motor function for improved functional use for increased independence with ADLs. Electrical stimulation utilized to facilitate muscle contraction and functional movement patterns of bilateral scapular stabilizers, anterior deltoids, posterior deltoids, biceps, tricep, and wrist extensors through backwards (7 minutes) and forward (7) directions. The below stimulation was applied to the following muscle groups: L scapular stabilzers: 26 mA L anterior deltoid: 22 mA L posterior deltoid: 16 mA L bicep: 17 mA L tricep 19 mA L wrist extensor: 18 mA R scapular stabilizers: 19 mA R anterior deltoid: 16 mA R posterior deltoid: 20 mA R bicep: 19 mA R tricep 19 mA R wrist flexors: 16 mA Pt. Participates total duration of 14 minutes, completing 1.06 miles, demonstrating 0% asymmetry with participation. Pt. Demonstrates good UE ROM for participation with no tone or spasticity noted. Pt. Demonstrates good tolerance with participation with no pain or discomfort noted. No irritation or redness noted to skin with placement and removal of stimulation pads. Maximal increased time required for skilled setup. Pt demonstrates improved coordination and strength of UE as noted by production of .1 coy power. Treatment, Outcomes and Plan: OT Narrative:: Pt demonstrates improved force production to achieve sit to stand this date during functional transfer. Pt. Would benefit from continued participation in intensive OT rehabilitation services in order to address BUE strength, ROM, and coordination, sitting balance, standing balance, pain management techniques, functional endurance, AE training, and energy conservation techniques forincreased independence with ADLs and functional transfers. Pt seated in w/c with pelvic positioning belt in place, alarms active, and tech present. OT Treatment Outcomes:: Safety device reapplied, Patient tolerated treatment well, Patient is progressing toward STG(s) and Goals met for this session OT Summary Plan of Care: Continue with current plan of care Pain Evaluation and Follow-up Pain Reassessment: Other (Comment)(Pt does not verbalize pain score. No signs or symptoms. ) (06/17/19 1215) Nursing notified of patient's pain assessment: Not indicated - pain score 2 or less (06/17/19 1215) Therapy Minutes Individual Concurrent Co-Treat Time In : 1120 Time Out: 1215 Breaks/Pauses (Min): 0 mins Total Time with Patient (Min): 55 min Missed Minutes : 10 JAYLA CAVAZOS 06/17/2019 Cosigned by Rosemary Murphy OT at 06/17/2019 2:26 PM CDT * OT Treatment Note - Eddie Francisco OT - 06/17/2019 10:10 AM CDT Occupational Therapy Treatment Patient Name: Ajit Tyler Patient Birthdate: 1960 Pain Assessment Pain Context: Therapy Assessment Prior to Treatment (06/17/19900) Pain Assessment: None/denies pain (06/17/19900) ADL Status: Other Lower Body Dressings: Yes Sock Level of Assistance: Total Assistance/Dependent (Total Assistance to don socks secondary to impaired BUE function. Performed in bed secondary to impaired balance, decreased functional ROM, and poor trunk stability. ) Shoe Level of Assistance: Total Assistance/Dependent (Total assist required to don shoes secondary to impaired BUE function. Performed in bed secondary to impaired balance, decreased functional ROM, and poor trunk stability.) Compression Hose Level of Assistance: Total Assistance/Dependent (Total assist to don compression socks secondary to impaired BUE function. Performed in bed secondary to impaired balance, decreased functional ROM, and poor trunk stability.) Bed/Chair Transfer Comments: Transfer performed following session with physical therapist at [facility] for decreased motor control, impaired balance, and decreased strength. Bed Mobility Level of Assistance: Total Assistance/Dependent Bed Mobility Comment: Patient required total assist for bed mobility from supine to EOB for leg postioning, upper extremity positioning, and trunk support. OT Therapeutic Activity: ROM: Glenohumeral joint and radiohead joint distractions (Grade III) and A/P glides (Grade I-II) topromote pain-free functional ROM. ROM: Yes R Motion All Joints: Passive range of motion R Position All Joints: Supine R Weight/Reps/Sets All Joints: Patient participated in R UE PROM to facilitate pain-free functionalROM and decrease joint stiffness for increased functional ROM with ADLs. L Motion All Joints: Passive range of motion L Position All Joints: Supine L Weight/Reps/Sets All Joints: Patient participated in L UE PROM to facilitate pain-free functionalROM and decrease joint stiffness for increased functional ROM with ADLs. Treatment, Outcomes and Plan: OT Narrative:: Patient tolerated treatment well. PROM and manual therapy performed in bilateral UEsto improve pain-free functional ROM. Patient demonstrated increased pain-free ROM following PROM and manual therapy. Patient will continue to benefit from skilled occupational therapy inpatient services to reach maximal function. Patient remained up sitting in chair at end of session with physical therapist in room to start next therapy session. OT Treatment Outcomes:: Patient tolerated treatment well OT Summary Plan of Care: Continue with current plan of care Pain Evaluation and Follow-up Pain Reassessment: No pain (06/17/19946) Nursing notified of patient's pain assessment: Not indicated - pain score 2 or less (06/17/19946) Therapy Minutes Individual Concurrent Co-Treat Time In : 900 Time Out: 945 Total Time with Patient (Min): 45 min EDDIE FRANCISCO OT 06/17/2019 * PT Treatment Note - Yesi Kellogg, PT - 06/17/2019 9:48 AM CDT PT Treatment Patient Name: Ajit Tyler Patient Birthdate: 1960 Patient Subjective Report - Pt agreeable to participation in therapy session. Pain Assessment Pain Context: Therapy Assessment Prior to Treatment (06/17/19947) Pain Assessment: None/denies pain (06/17/19947) Pain Score: 0 - No pain (06/17/19947) Surface: Even surface and Indoor Assistive Device: No Device Ambulation Level of Assistance: Total Assistance/Dependent Distance (feet): 12 Gait Analysis: Ambulates 12 + 8 feet without AD and mod-max A B for weight shifting and foot placement. W/c follow for safety. Requires sitting on first bout due to crossing LLE over RLE upon reaching 12 feet and unable to continue, fatigues quickly on second bout. Gait deviations include narrow SOPHY, decreased b hip flex needed for foot clearance, B genu recurvatum, flexed fwd trunk, and slow emily. Transfer to 1: Stand Transfer from 1: Sit Technique 1: Sit to stand Transfer Level of Assistance 1: Maximal Assistance Trials/Comments1: Max A for force production to reach upright and B knee block anteriorly- emergingmod A Transfer to 2: Wheelchair Transfer from 2: Bed Technique 2: Stand pivot Transfer Level of Assistance 2: Maximal Assistance Trials/Comments 2: Max A x 1 for SPT with therapist assist for weight shifting and cues for sequencing of stepping LEs due to impaired proprioception. Improved initiation of stepping LEs throughout. Wheelchair Level of Assistance: Moderate Assistance Distance Traveled in Wheelchair (feet): 25 Wheelchair size: 22 Wheelchair Type: Manual tilt in space Wheelchair cushion: Standard Surface: Even surface and Indoor Propulsion Method: Bilateral lower extremity Wheelchair Propulsion Level of Assistance: Moderate Assistance Wheelchair Analysis: Propel 25 feet initially with min A for maintaining straight line of progression and continued forward momentum, however progressing to mod A for final 15 feet due to fatigue in LEs and increased time required for completion. Static Standing Balance Support: No upper extremity supported and No assistive device Static Standing Level of Assistance: Moderate Assistance Static Standing # of Mins/Comments: <5 mins Therapeutic Activities and Neuromuscular Re-education: THER EX: perform blocked practice STS x 5 reps with max A for force production and maintains standing x 10 sec each rep with cues to reach upright posture- for carryover to improved independence with functional transfers and ambulation. Cues for fwd head/shoulders to center COM over SOPHY. Pt fatigues quickly and requires rest break x 1 min in between each rep. Additionally performs the following BLE strengthening exercises in sitting for carryover to improved independence and motor planning required with functional transfers and ambulation: kicking soccer ball back and forth with therapist x 15 reps with each LE, marches x 10, knee ext/flex (with towel under foot to reduce friction due to weakness) x 10, hip add with pillow x15, ankle pumps x 10, glut sets x 15 with 3 sec hold. NEURO RE-ED: maintains static standing x 1 min without UE support and moderate assistance for steadying and balance- frequently flexing far fwd but able to correct with cues for middle trap and gluteal recruitment when fatiguing. PT Treatment Outcomes:: Cues needed for safety, Gait deviations reduced, Goals met for this session, Improved ambulation performance, Improved transfer ability noted, Improving overall functional endurance noted, Patient is progressing toward STG, Patient tolerated treatment well and Qualitative gains in function PT Summary:: Session focus on ambulation, transfers, and LE strength and motor planning. Demonstrates improved stand pivot transfer ability and emerging mod A for STS transfers, however continues to fatigue quickly and requiring increased assist nearing end of session. Additionally demonstrates improved ambulation distances and quality of gait- reduced instances of scissoring gait pattern and no need for blocking B knees during stance phase. Patient remained up sitting in chair at end of session with pelvic positioning belt on, chair alarm in place, call light and phone within reach. PT Summary Plan of Care: Continue with current plan of care Pain Evaluation and Follow-up Pain Reassessment: 4 (06/17/19 111) Nursing notified of patient's pain assessment: Primary Nurse (06/17/191117) Therapy Minutes Individual Concurrent Co-Treat Time In : 947 Time Out: 1118 Breaks/Pauses (Min): 0 mins Total Time with Patient (Min): 90 min Missed Minutes : 0 YESI KELLOGG, PT 06/17/2019 * Plan of Care - Jade Barnes RN - 06/17/2019 9:45 AM CDT Problem: Infection Goal: Absence of infection and prevention of transmission during hospitalization Outcome: Progressing Problem: Fall Safety Goal: Free from fall injury Outcome: Progressing Problem: Knowledge Deficit Goal: Patient and/or family demonstrate readiness to learn Outcome: Progressing Goal: Patient and/or family verbalizes understanding of education, and/or performs desired skill Outcome: Progressing Problem: Discharge Planning Goal: Discharge to home or other facility with appropriate resources Outcome: Progressing Goal: solar sales associate will develop a plan to decrease their burden and enhance comfort in role Outcome: Progressing Problem: Knowledge Deficit Goal: Patient/family/caregiver demonstrates understanding of disease process, treatment plan, medications, and discharge instructions Outcome: Progressing Problem: Potential for Compromised Skin Integrity Goal: Skin integrity is maintained or improved Outcome: Progressing Goal: Nutritional status is improving Outcome: Progressing Problem: Urinary Incontinence Goal: Perineal skin integrity is maintained or improved Outcome: Progressing Problem: Bowel Incontinence Goal: Perineal Skin Integrity is Maintained or Improved Outcome: Progressing Problem: Pain Goal: Patient's pain/discomfort is manageable Outcome: Progressing * Plan of Care - Yusef Huddleston RN - 06/17/2019 12:02 AM CDT Problem: Infection Goal: Absence of infection and prevention of transmission during hospitalization Outcome: Progressing Problem: Fall Safety Goal: Free from fall injury Outcome: Progressing Problem: Knowledge Deficit Goal: Patient and/or family demonstrate readiness to learn Outcome: Progressing Goal: Patient and/or family verbalizes understanding of education, and/or performs desired skill Outcome: Progressing Problem: Knowledge Deficit Goal: Patient/family/caregiver demonstrates understanding of disease process, treatment plan, medications, and discharge instructions Outcome: Progressing Problem: Potential for Compromised Skin Integrity Goal: Skin integrity is maintained or improved Outcome: Progressing Goal: Nutritional status is improving Outcome: Progressing Problem: Pain Goal: Patient's pain/discomfort is manageable Outcome: Progressing * OT Treatment Note - Eddie Francisco OT - 06/16/2019 12:59 PM CDT Occupational Therapy Treatment Patient Name: Ajit Tyler Patient Birthdate: 1960 Patient Subjective Report - Patient reports no pain at beginning session. Pain Assessment Pain Context: Therapy Assessment Prior to Treatment (06/16/19 1300) Pain Assessment: None/denies pain (06/16/19 1300) ADL Status: Bed, Chair, Wheelchair Transfer: Total Assistance/Dependent (Max x 2) Bed/Chair Transfer to: Bed Bed/Chair Transfer from: Wheelchair Bed/Chair Transfer Technique: Stand pivot Bed/Chair Transfer Comments: Patient demonstrated Max x 2 transfer from w/c to bed. Patient required help with forward lean. Observed retropulsion with increased hip extension. Patient required bilateral knee block. Patient demonstrates weakness and poor motor control. Bed Mobility: Short sit to - from supine Bed Mobility Level of Assistance: Total Assistance/Dependent Bed Mobility Comment: Patient required total assist with bed positioning. Pillow supports applied to bilateral UEs. Patient required proper positioning for LE and upper body. OT Therapeutic Activity: ROM: Patient participated in manual therapy and PROM to facilitate pain free functional ROM for participation in ADLs. Bilateral glenohumeral joint distraction, compression, and A/P glide grade III and IV and R radial head and radioulnar joint distraction grade III and A/P glide grade II. Followingmanual therapy, bilateral UE PROM performed in pain-free range. Patient reported pain at end range of bilateral shoulder flexion and R elbow flexion. Treatment, Outcomes and Plan: OT Narrative:: Patient tolerated treatment well. Treatment today focused on improving pain-free functional ROM. Patient tolerated manual therapy and PROM well. He demonstrated increased pain-free PROM at end of session. Patient remained sitting up in bed at end of session with bed alarm activated and sip and puff in place. OT Treatment Outcomes:: Patient tolerated treatment well OT Summary Plan of Care: Continue with current plan of care Pain Evaluation and Follow-up Pain Reassessment: No pain (06/16/19 1357) Nursing notified of patient's pain assessment: Not indicated - pain score 2 or less (06/16/19 1357) Therapy Minutes Individual Concurrent Co-Treat Time In : 1259 Time Out: 1344 Total Time with Patient (Min): 45 min Missed Minutes : 0 EDDIE FRANCISCO OT 06/16/2019 * Plan of Care - Karin Gutierrez - 06/16/2019 11:19 AM CDT Problem: Infection Goal: Absence of infection and prevention of transmission during hospitalization Outcome: Progressing Problem: Fall Safety Goal: Free from fall injury Outcome: Progressing Problem: Knowledge Deficit Goal: Patient and/or family demonstrate readiness to learn Outcome: Progressing Goal: Patient and/or family verbalizes understanding of education, and/or performs desired skill Outcome: Progressing Problem: Discharge Planning Goal: Discharge to home or other facility with appropriate resources Outcome: Progressing Goal: solar sales associate will develop a plan to decrease their burden and enhance comfort in role Outcome: Progressing Problem: Knowledge Deficit Goal: Patient/family/caregiver demonstrates understanding of disease process, treatment plan, medications, and discharge instructions Outcome: Progressing Problem: Potential for Compromised Skin Integrity Goal: Skin integrity is maintained or improved Outcome: Progressing Goal: Nutritional status is improving Outcome: Progressing Problem: Urinary Incontinence Goal: Perineal skin integrity is maintained or improved Outcome: Progressing Problem: Bowel Incontinence Goal: Perineal Skin Integrity is Maintained or Improved Outcome: Progressing Problem: Pain Goal: Patient's pain/discomfort is manageable Outcome: Progressing Problem: Infection Goal: Absence of infection and prevention of transmission during hospitalization Outcome: Progressing Problem: Fall Safety Goal: Free from fall injury Outcome: Progressing Problem: Knowledge Deficit Goal: Patient and/or family demonstrate readiness to learn Outcome: Progressing Goal: Patient and/or family verbalizes understanding of education, and/or performs desired skill Outcome: Progressing Problem: Discharge Planning Goal: Discharge to home or other facility with appropriate resources Outcome: Progressing Goal: solar sales associate will develop a plan to decrease their burden and enhance comfort in role Outcome: Progressing Problem: Knowledge Deficit Goal: Patient/family/caregiver demonstrates understanding of disease process, treatment plan, medications, and discharge instructions Outcome: Progressing Problem: Potential for Compromised Skin Integrity Goal: Skin integrity is maintained or improved Outcome: Progressing Goal: Nutritional status is improving Outcome: Progressing Problem: Urinary Incontinence Goal: Perineal skin integrity is maintained or improved Outcome: Progressing Problem: Bowel Incontinence Goal: Perineal Skin Integrity is Maintained or Improved Outcome: Progressing Problem: Pain Goal: Patient's pain/discomfort is manageable Outcome: Progressing * PT Treatment Note - Yesi Kellogg, PT - 06/16/2019 10:33 AM CDT PT Treatment Patient Name: Ajit Tyler Patient Birthdate: 1960 Patient Subjective Report - Pt lying in bed, agreeable to participation in therapy session. Pain Assessment Pain Context: Therapy Assessment Prior to Treatment (06/16/19 103) Pain Assessment: None/denies pain (06/16/19 103) Pain Score: 0 - No pain (06/16/19 103) Bed Mobility: Performed on bed and Short sit to - from supine Bed Mobility Level of Assistance: Maximal Assistance Bed Mobility Comment: Supine to sitting with HOB elevated Transfer to 1: Stand Transfer from 1: Sit Technique 1: Sit to stand Transfer Level of Assistance 1: Maximal Assistance Trials/Comments1: Max A to reach standing without AD Transfer to 2: Wheelchair Transfer from 2: Bed Technique 2: Stand pivot Transfer Level of Assistance 2: Maximal Assistance and Total Assistance/Dependent Trials/Comments 2: Max-total A for weight shifting and stepping LEs and B knee block during weightbearing. Demonstrates decreased foot clearance this date Activity Type: Standing Activity Endurance: Good Compromised ability to maintain sitting: Yes Activity comment: BP post-lokomat= 150/80; post-4 min rest break in sitting= 110/72. Therapeutic Activities and Neuromuscular Re-education: LOKOMAT: Initiate Lokomat gait training thissession for improved B LE muscle strength and muscle activation, tissue extensibility/ROM, circulation, improved weight bearing, tolerance to upright and proprioception needed for improved speeds andgait pattern during over-ground gait. Skin check performed before and after treatment with no adverse reactions noted. Maintains standing in single bout x 3 min while donning harness and mod A x 1 and occasional min A of another to maintain- pt becomes increasingly fatigued, however able to respondto cues to stand tall by pulling shoulders back to reach upright when leaning far fwd. Time spentfor making adjustments to gait pattern and reaching dynamic body weight support phase over treadmill. Remainder of session focus on increasing gait speeds and reducing body weight support while maintaining ability to actively step with LEs. Pt has one instance of auto-stop when distracted and catching RLE on treadmill, and occasionally scuffing LEs however able to respond to verbal and visual cues for increasing step length and foot clearance. Education provided throughout regarding benefits and rationale of lokomat use, principles of neuroplasticity, and carryover to functional tasks. % BodyWeight Support: 47% minimum and 50% average, Distance: 1,348 feet, Duration: 15:07 min, Guidance For ce: average 100%, Speed: 1.0 mph average, 1.1 mph max speed. Spinal Cord Education Needs The following education regarding medical complications following spinal cord injury is provided this date: Autonomic Dysreflexia- causes, s/s, and treatment Spasticity Muscle atrophy Contracture Osteoporosis Heterotopic Ossification Circulation Edema Deep Vein Thrombosis and blood clots Skin breakdown Orthostatic Hypotension Temperature regulation Were the patients educational needs met? yes PT Treatment Outcomes:: Compensatory strategies effectively used, Goals met for this session, Improved ambulation performance, Patient is progressing toward STG, Patient tolerated treatment well and Qualitative gains in function PT Summary:: Initiate Lokomat robotic walking system this session for carryover to improved qualityand efficiency of overground gait. Tolerates 15 total minutes at 47% body weight support and responds well to cues for increasing length of step and foot clearance when fatigued. Patient remained up sitting in chair at end of session with pelvic positioning belt on, chair alarm in place, sip and puff call light within reach. PT Summary Plan of Care: Continue with current plan of care Pain Evaluation and Follow-up Pain Reassessment: 2 (06/16/19 1205) Nursing notified of patient's pain assessment: Not indicated - pain score 2 or less (06/16/19 1205) Therapy Minutes Individual Concurrent Co-Treat Time In : 1033 Time Out: 1205 Breaks/Pauses (Min): 0 mins Total Time with Patient (Min): 92 min Missed Minutes : 2 YESI KELLOGG, PT 06/16/2019 * OT Treatment Note - Jaylatori Cavazos - 06/16/2019 9:00 AM CDT Occupational Therapy Treatment Patient Name: Ajit Tyler Patient Birthdate: 1960 Patient Subjective Report - Pt agreeable to therapy this date. Pain Assessment Pain Context: Therapy Assessment Prior to Treatment (06/16/19899) Pain Assessment: NRS 0-10 (06/16/19899) Pain Score: 0 - No pain (06/16/19899) Pain Interventions Education Provided: Patient (06/16/19944) Non-Pharmacologic Pain Interventions: Distractions, Exercise/Activity, Position/Reposition, Relaxation, Rest (06/16/19944) Emotional/Spiritual Pain Interventions: Emotional Support (06/16/19944) ADL Status: Feeding Comments: Pt requires assistance for taking drinks due to impaired functioanl use of BUE. Lower Body Dressing Where Assessed: Supine in bed Lower Body Dressing Comments: Pt participates in LBD supine, bed level. Pt requires assistance withall aspects of donning pants, compression stockings, and shoes due to impaired functional use of BUE. Pt demonstrates improved ability to assist with movement through BLE for increased independence with threading pants. Bed Mobility Comment: Pt demonstrates improved ability to flex bilateral knees for increased independence with rolling for participation in ADLs. OT Therapeutic Activity: Therapeutic Exercise: Pt participates in therapeutic exercise to address and improve BUE strength, ROM, and coordination and functional endurance for increased independence in ADLs and functional transfers. Pt participates supported long-sit, bed leve. Pt completes 20 reps x 1 set shoulder shrugs for improved strength. Pt demonstrates good ability to complete. Modalities: Modalities: Yes RUE Electrical Stimulation Location: Upper arm RUE Electrical Stimulation Action: Pt participates in e-stim of RUE triceps for neuromuscular re education and strengthening. Pt requires tillman points of control at elbow and wrist. Pt demonstrates improved range of motion with participation. RUE Electrical Stimulation Parameters: Pt participtes in e-stim of RUE triceps for neuromuscular reeducation. Pt recieves 50 bps CC, 33 mA, 5/5 duty cycle with 2 second ramp up time for duration of 10 minutes. RUE Electrical Stimulation Goals: Neuromuscular facilitation LUE Electrical Stimulation Location: Upper arm LUE Electrical Stimulation Action: Pt participates in e-stim of LUE triceps for neuromuscular re education and strengthening. Pt requires tillman points of control at elbow and wrist. Pt demonstrates improved range of motion with participation. LUE Electrical Stimulation Parameters: Pt participtes in e-stim of LUE triceps for neuromuscular reeducation. Pt recieves 50 bps CC, 46 mA, 5/5 duty cycle with 2 second ramp up time for duration of 10 minutes. LUE Electrical Stimulation Goals: Neuromuscular facilitation Treatment, Outcomes and Plan: OT Narrative:: Pt demonstrates improved ROM with participation in electrical stimulation of bilateral triceps. Pt. Would benefit from continued participation in intensive OT rehabilitation services in order to address UE strength, ROM, and coordination, sitting balance, functional endurance, directing self care, pain management techniques, and energy conservation techniques for increased independence with ADLs and functional transfers. Pt supported long-sit, bed level with sip and puff call light in reach and alarms active. OT Treatment Outcomes:: Safety device reapplied, Patient tolerated treatment well, Goals met for this session and Patient is progressing toward STG(s) OT Summary Plan of Care: Continue with current plan of care Pain Evaluation and Follow-up Pain Reassessment: 2 (06/16/19944) Nursing notified of patient's pain assessment: Not indicated - pain score 2 or less (06/16/19944) Therapy Minutes Individual Concurrent Co-Treat Time In : 899 Time Out: 0945 Breaks/Pauses (Min): 0 mins Total Time with Patient (Min): 45 min Missed Minutes : 0 JAYLA CAVAZOS 06/16/2019 Cosigned by Rosemary Murphy OT at 06/16/2019 4:23 PM CDT * Plan of Care - Alma Delia Ladd RN - 06/15/2019 7:47 PM CDT Problem: Infection Goal: Absence of infection and prevention of transmission during hospitalization Outcome: Progressing Problem: Fall Safety Goal: Free from fall injury Outcome: Progressing Problem: Knowledge Deficit Goal: Patient and/or family demonstrate readiness to learn Outcome: Progressing Goal: Patient and/or family verbalizes understanding of education, and/or performs desired skill Outcome: Progressing Problem: Discharge Planning Goal: Discharge to home or other facility with appropriate resources Outcome: Progressing Goal: solar sales associate will develop a plan to decrease their burden and enhance comfort in role Outcome: Progressing Problem: Knowledge Deficit Goal: Patient/family/caregiver demonstrates understanding of disease process, treatment plan, medications, and discharge instructions Outcome: Progressing Problem: Potential for Compromised Skin Integrity Goal: Skin integrity is maintained or improved Outcome: Progressing Goal: Nutritional status is improving Outcome: Progressing Problem: Urinary Incontinence Goal: Perineal skin integrity is maintained or improved Outcome: Progressing Problem: Bowel Incontinence Goal: Perineal Skin Integrity is Maintained or Improved Outcome: Progressing * OT Treatment Note - Jayla Cavazos - 06/15/2019 1:04 PM CDT Occupational Therapy Treatment Patient Name: Ajit Tyler Patient Birthdate: 1960 Patient Subjective Report - Pt agreeable to therapy this date. Pain Assessment Pain Context: Therapy Assessment Prior to Treatment (06/15/19 1302) Pain Assessment: NRS 0-10 (06/15/19 1302) Pain Score: 0 - No pain (06/15/19 1302) Pain Interventions Education Provided: Patient (06/15/19 1440) Non-Pharmacologic Pain Interventions: Distractions, Position/Reposition, Relaxation, Rest, Exercise/Activity (06/15/19 1440) Emotional/Spiritual Pain Interventions: Emotional Support (06/15/19 1440) ADL Status: Grooming: Total Assistance/Dependent Grooming Where Assessed: Other (Comment) (supported long-sit, bed level) Grooming Comments: Pt participates bed level due to impaired functional use of BLE and decreased sitting balance. Pt completes oral care with assistance due to decreased functioanl use of BUE. Bathing Where Assessed: Sponge bath edge of bed Bathing Comments: Pt declines a shower this date. Pt participates in bathing semi-supine bed level due to impaired functional use of BLE and impaired sitting balance. Pt requires assistance for sponge bathing 10/10 body parts due to impaired functional use of BUE. Increased time required for participation. Toileting: Total Assistance/Dependent Toileting Where Assessed: Bed level Toilet Comments: Pt requires assistance for cleansing following BM due to impaired functional use of BUE. Pt completes rolling side to side for participation. Barrier cream applied for improved skin integrity. Increased time for participation. Pt requires assistance for emptying catheter bag. Upper Body Dressing Comments: Pt requires total assistance for donning/doffing gown for participation in sponge bathing. Lower Body Dressing Comments: Pt participates in LBD bed level due to impaired standing balance. Ptrequires assistance for doffing compression stockings due to impaired functional use of BUE. Pt requires assistance for donning BLE socks and for set up of multi podus OT Therapeutic Activity: ROM: Pt participates in PROM of BUE to address and improve joint integrity to reduce risk of contracture limiting function. Pt receives PROM of all joints BUE. Pt demonstrates functional passive ROM of all joints and no contractures present. Increased time for participation. Pt completes AAROM this date to address and improve joint integrity, muscular neuro reeducation, strength, and endurance for increased independence in ADLs and functional transfers. Pt completes shoulder flexion/extension against gravity with no active movement noted, but compensatory movements of scapulae. Pt demonstrates functional ROM BUE. Pt completes bicep flexion in gravity eliminated planewith tillman points of control at the elbow and wrist. Pt demonstrates improved active movement and muscle contraction with improved ROM bilaterally. Pt also completes tricep extension in gravity eliminated plane with tillman points of control at elbow and wrist. Pt demonstrates compensatory movements. Pt also completes wrist extension in gravity eliminated plane with minimal movement bilaterally. Pt completes 5 reps x 1 set each side of all movements. Pt participates in AROM of wrist extensors bilaterally utilizing vibration for muscle facilitation.Pt demonstrates good ability for safe use and tolerates well. Pt demonstrates improved ROM with useof vibration. Treatment, Outcomes and Plan: OT Narrative:: Pt demonstrates improved ROM of BUE in gravity eliminated plane and with use of facilitatory technique utilizing vibration for wrist extensors. Pt. Would benefit from continued participation in intensive OT rehabilitation services in order to address BUE strength, ROM, and coordination, sitting balance, neuromuscular re education, pain management, energy conservation, directing self care, and SCI education for increased independence in ADLs and functional transfers. Pt supported long-sit, bed level with alarms active and sip and puff call light in reach. OT Treatment Outcomes:: Safety device reapplied, Patient tolerated treatment well, Patient is progressing toward STG(s) and Goals met for this session OT Summary Plan of Care: Continue with current plan of care Pain Evaluation and Follow-up Pain Reassessment: 3 (06/15/19 1440) Nursing notified of patient's pain assessment: Primary Nurse (06/15/19 1440) Therapy Minutes Individual Concurrent Co-Treat Time In : 1302 Time Out: 1440 Breaks/Pauses (Min): 0 mins Total Time with Patient (Min): 98 min Missed Minutes : 8 JAYLA CAVAZOS 06/15/2019 Cosigned by Rosemary Murphy OT at 06/15/2019 3:43 PM CDT * PT Treatment Note - Yesi Kellogg, PT - 06/15/2019 9:00 AM CDT PT Treatment Patient Name: Ajit Tyler Patient Birthdate: 1960 Patient Subjective Report - Pt lying in bed, agreeable to participation in therapy session. Pain Assessment Pain Context: Therapy Assessment Prior to Treatment (06/15/19 09) Pain Assessment: None/denies pain (06/15/19 09) Pain Score: 0 - No pain (06/15/19 0900) Bed Mobility: Performed on bed and Short sit to - from supine Bed Mobility Level of Assistance: Total Assistance/Dependent Surface: Even surface and Indoor Assistive Device: No Device Ambulation Level of Assistance: Total Assistance/Dependent Distance (feet): 5 Gait Analysis: Ambulates 5 + 2 feet without AD and maximal assistance B for weight shifting and blocking knees to prevent buckling with advancement of opposite LE. W/c follow for safety. Cues throughout for widening SOPHY due to scissoring gait pattern and occasional assist to prevent stepping on opposite LE. Gait deviations include narrow SOPHY/scissoring gait, B genu recurvatum although occasional buckling when shifting weight heavily to same side, decreased B foot clearance, and slow emily. Transfer to 1: Stand Transfer from 1: Sit Technique 1: Sit to stand Transfer Level of Assistance 1: Maximal Assistance Trials/Comments1: Max A x 1 for force production with B knee block to reach stand Transfer to 2: Wheelchair Transfer from 2: Bed Technique 2: Stand pivot Transfer Level of Assistance 2: Maximal Assistance and Total Assistance/Dependent Trials/Comments 2: SPT from bed to w/c with max A x 1 for weight shifting and to advance BLE and SBA of another for safety. Demonstrates improved initiation of stepping LEs when provided assist to shift weight to contralateral side. Transfer to 3: Bed Transfer from 3: Wheelchair Technique 3: Stand pivot Transfer Level of Assistance 3: Maximal Assistance Trials/Comments 3: Max A x 1 for squat pivot transfer Wheelchair Level of Assistance: Minimal Assistance Distance Traveled in Wheelchair (feet): 18 Wheelchair size: 22 Wheelchair Type: Manual tilt in space Wheelchair cushion: Standard Surface: Even surface and Indoor Propulsion Method: Bilateral lower extremity Wheelchair Propulsion Level of Assistance: Minimal Assistance Wheelchair Analysis: Min A for continued fwd propulsion and managing turns/obstacles. Pt fatigues after 18 feet in BLE due to activities earlier in session. Therapeutic Activities and Neuromuscular Re-education: FES BIKE: perform FES LE ergometer this session for BLE to maintain tissue extensibility/ROM, reducing atrophy, increase localized blood flow, improve LE sensation, and improve strength needed for ambulation and endurance. The following parameters were used: RLE: Channel 1: right quads- 45 mA, Channel 2: right hamstrings- 39 mA, Channel 3: right gastroc- 37 mA, Channel 4: right tibialis- 42 mA. LLE: Channel 1: left quads- 47 mA, Channel 2: left hamstrings- 49 mA, Channel 3: left gastroc- 37 mA, Channel 4: left tibialis- 42 mA. Pt tolerates 1 minute warm-up and 1 minute cool-down, tolerating 15 minutes of stimulation with cycling. Unableto tolerate increase in stimulus this date due to discomfort and improving sensation. Pt maintains B shoes donned throughout. Tolerates session well. No adverse skin reactions noted after doffing of electrodes. Distance traveled: 2.11 mi (1.3 previously), energy expended: 0.9 kcal (0.5), average power: 4.2 W (3.9), average asymmetry: 2 % L (2% L). PRESSURE RELIEF: performed x 1 during session after completion of FES bike x 5 min in fully tilted posterior position. Skin Check: Skin check before treatment and Skin check after treatment Modalities type: Functional electrical stimulation (FES or NMES) Modalities location: Knee left, Knee right, Ankle foot left, Ankle - foot right, Hip left and Hip right Modalities time: 15 minutes PT Treatment Outcomes:: Cues needed for safety, Goals met for this session, Improving overall functional endurance noted, Patient is progressing toward STG and Patient tolerated treatment well PT Summary:: Session focus on ambulation, STS transfers, wheelchair propulsion, and performance of FES bike for improving BLE strength and sensation. Demonstrates good tolerance to upright and no c/odizziness during ambulation, however is limited in distance by LE strength and impaired proprioception. Increased time tolerated on FES bike from 10 min previously to 15 min this date. Increased restbreaks required nearing end of session and after completion of FES bike due to fatigue in BLE. Transfer back to bed at completion of session due to fatigue. Bed alarm on and sip and puff call light placed in front of pt. PT Summary Plan of Care: Continue with current plan of care Pain Evaluation and Follow-up Pain Reassessment: No pain (06/15/19 1030) Nursing notified of patient's pain assessment: Not indicated - pain score 2 or less (06/15/19 1030) Therapy Minutes Individual Concurrent Co-Treat Time In : 0900 Time Out: 1030 Breaks/Pauses (Min): 0 mins Total Time with Patient (Min): 90 min Missed Minutes : 0 YESI KELLOGG PT 06/15/2019 * Plan of Care - Alma Delia Ladd RN - 06/15/2019 12:25 AM CDT Problem: Infection Goal: Absence of infection and prevention of transmission during hospitalization Outcome: Progressing Problem: Fall Safety Goal: Free from fall injury Outcome: Progressing Problem: Knowledge Deficit Goal: Patient and/or family demonstrate readiness to learn Outcome: Progressing Goal: Patient and/or family verbalizes understanding of education, and/or performs desired skill Outcome: Progressing Problem: Discharge Planning Goal: Discharge to home or other facility with appropriate resources Outcome: Progressing Goal: solar sales associate will develop a plan to decrease their burden and enhance comfort in role Outcome: Progressing Problem: Knowledge Deficit Goal: Patient/family/caregiver demonstrates understanding of disease process, treatment plan, medications, and discharge instructions Outcome: Progressing Problem: Potential for Compromised Skin Integrity Goal: Skin integrity is maintained or improved Outcome: Progressing Goal: Nutritional status is improving Outcome: Progressing Problem: Urinary Incontinence Goal: Perineal skin integrity is maintained or improved Outcome: Progressing Problem: Bowel Incontinence Goal: Perineal Skin Integrity is Maintained or Improved Outcome: Progressing * Team Conference - EDWIN Wheeler - 06/14/2019 2:49 PM CDT Team Conference Note Date: 06/14/2019 Time: 2:49 PM Patient Name: Ajit Tyler Date of : 1960 Sex: Male Room/Bed: 215/215-1 Primary Insurance: [facility] Medicare Complete Admit Date/Time: 06/09/2019 4:28 PM Patient Active Problem List Diagnosis Date Noted ??? Cervical spinal cord injury 06/09/2019 ??? Sepsis 06/06/2019 ??? Spinal injury 05/31/2019 Team Members Present: Attendees: Chris Sousa MD, Rosemary Murphy OT, EDWIN Wheeler, Yesi Kellogg, PT [employer] Feeder in Attendance: ANNA MARIE MORTON SW Patient/Family Present: Patient Present: No Patient's Family Present: No Anticipated Discharge 06/24/2019 Discharge Plan: Discharge Destination Type: Own Home Back-up Discharge Destination: Own Home Potential Barriers to Return to Prior Living (Use comments to be specific): Caregiver limitations;Capacity for self care;Mobility challenge;Architectural/environmental barrier(s);Home modification challenge;DME issue;Potential need for skills/non-skilled services;Potential need for 24 hour care Suicide Prevention: No Concerns identified at this time Medications: Current Facility-Administered Medications: ??? acetaminophen (TYLENOL) tablet 650 mg, 650 mg, Oral, Q6H PRN, Jayjay Barnes MD, 650 mg at 06/13/191818 ??? Apixaban (ELIQUIS) tablet 2.5 mg, 2.5 mg, Oral, 2 times per day, Jayjay Barnes MD, 2.5 mg at 06/14/19825 ??? bisacodyl (DULCOLAX) suppository 10 mg, 10 mg, Rectal, Q24H, Chris Sosua MD, 10 mg at 06/13/191818 ??? calcium carbonate (TUMS) chewable tablet 500 mg, 500 mg, Oral, BID with meals, Jayjay Barnes MD, 500 mg at 06/14/19825 ??? cefdinir (OMNICEF) capsule 300 mg, 300 mg, Oral, 2 times per day, Jayjay Barnes MD, 300 mg at06/14/19825 ??? cyclobenzaprine (FLEXERIL) tablet 5 mg, 5 mg, Oral, TID PRN, Jayjay Barnes MD, 5 mg at 06/13/192318 ??? docusate sodium (COLACE) capsule 100 mg, 100 mg, Oral, Once a day, Jayjay Barnes MD, 100 mg at 06/14/19825 ??? montelukast (SINGULAIR) tablet 10 mg, 10 mg, Oral, Once a day, Jayjay Barnes MD, 10 mg at 06/14/19825 ??? oxyCODONE (ROXICODONE) immediate release tablet 5 mg, 5 mg, Oral, Q4H PRN, Jayjay Barnes MD, 5 mg at 06/10/192109 ??? phenol 1.4 % 0.05 mL, 1 spray, Mouth/Throat, 3 times per day, ASHANTI Stone ??? sodium chloride (OCEAN) 0.65 % nasal spray 1 spray, 1 spray, Each Nostril, 2 times per day, ASHANTI Stone Pharmacy: Nursing Team Conference: Bladder Continent: (Santo catheter) Bladder Devices: Santo catheter Bowel Continent: Incontinent Bowel Devices: Adult brief Bowel Interventions: Bowel program Pain: Patient verbalizes pain Pain - Functional Impact: Turning Aggravating Factors Impacting Pain: Positioning Alleviating Factors Impacting Pain: Rest Pain Education Provided: Patient Non-Pharmacologic Pain Interventions: Rest Emotional/Spiritual Pain Interventions: Emotional Support Opiate Use Anticipated After Discharge: No Nutrition Intake: Oral Nutrition Level of Assistance: Total assistance Nutrition Interventions: Chin tuck;Small sips Respiratory O2 Delivery System: None Respiratory Interventions: None Skin Intact: Laceration;Pressure ulcer Skin Interventions: Pressure relief surface Wound Rx: None Safety Status: Good safety awareness;Follows instructions Safety Interventions: Education;Performed rounding Cognitive Orientation: Place;Person;Time;Date Cognitive Deficits Observed: None Quality of Sleep: Restful Is patient on dialysis?: No PT Weekly Progress Note (Notes from 06/07/19 through 06/14/19) PT Weekly Progress Note by Yesi Kellogg PT at 06/13/2019 12:53 PM Author: Yesi Kellogg PT Service: Therapy Author Type: Physical Therapist Filed: 06/13/2019 12:59 PM Date of Service: 06/13/2019 Status: Signed Air Pumper: Yesi Kellogg PT (Physical Therapist) PT Weekly Progress Note Patient Name: Ajit Tyler Patient Birthdate: 1960 PT CURRENT FUNCTIONAL STATUS: PT Current Functional Status: PT Current Functional Status: Mr. Tyler is currently limited in progress due to being a recent admission. His current functional status is as follows: TRANSFERS- sit to/from stand with maximal assistance of one, stand pivot transfer with maximal assistance of one and additional min-mod/max A of another dependent upon fatigue with B knee block and assist for weight shifting, stand pivot car transfer with maximal assistance of one and moderate assistance of another, supine to/from sitting with total A, rolling side to side with maximal assistanceof one, AMBULATION- ambulates 8 feet without assistive device and maximal assistance of 2 bilaterally for weight shifting, LE advancement, and knee block with w/c follow for safety- limited in distance by BLE fatigue/weakness and ataxia, decreased trunk control, unsafe to attempt uneven surfaces at this time, ELEVATIONS- unsafe to attempt at this time, 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 Current barriers include impaired standing balance, UE/LE muscle strength, ataxic movements, musclespasms/tone, tolerance to standing, activity tolerance, proprioception, and impaired to absent sensation, motor planning. Mr. Tyler would continue to benefit from further intensive skilled physical therapy services in order to continue to address these deficits and maximize independence with functional mobility and caregiver direction. Factors in Goal Achievement: Facilitating Factors: Patient understanding and knowledge, Support of family or caregiver, Improvedfunctional mobility, Patient compliance, Patient motivation, Improved strength, Use of compensatorystrategies and Decrease in pain Barriers: Balance deficits, Diminished endurance, Pain, Strength limitations, Motor control deficits, Spasticity and Tone deficits Date Last Assessed: 06/13/2019 CARE Score Tillman: 6: Independent. Index provides no assistance with tasks. A device may or may not have been used. 5: Set-up or clean-up assistance. Index sets up or cleans up, but does not assist with tasks. Index may have assisted prior to or following the activity. 4: Supervision or touching assistance. Index provides verbal cues or touching/steadying or contactguard assistance. Assistance may be provided throughout the activity or intermittently. 3: Partial/moderate assistance. Index does less than half the effort. Index lifts, holds, or supports trunk or limbs, but provides less than half the effort. 2: Substantial/maximal assistance. Index does more than half the effort. Index lifts or holds trunk or limbs, and provides more than half the effort. 1: Dependent. Index does all of the effort, or the assistance of two or more helpers is required for the patient to complete the activity. -: Inconsistent or incomplete documentation Activity not attempted values: 7: Patient refused 9: Not applicable - Not attempted and the patient did not perform this activity prior to the current illness, exacerbation, or injury. 10: Not attempted due to environmental limitations (e.g., lack of equipment, weather constraints) 88: Not attempted due to medical condition or safety concerns Family Mediator Goals: Goal Status on Admission Current Status Car Transfer LTG: Supervision or touching assistance(Patient will perform car transfer using least restrictive assistive device and supervision) Car Transfer - CARE Score: 1 (06/10/19 124 : Leander Kellogg PT) Car Transfer - CARE Score: 1 (06/13/19 125) Walk 10 Feet - CARE Score: 88 (06/10/191240 : Yesi Kellogg PT) Walk 10 Feet - CARE Score: 88 (06/13/19 125) Walk 50 Feet with Two Turns LTG: Supervision or touching assistance(Patient will ambulate 50 feet using least restrictive assistive device and supervision) Walk 50 Feet with Two Turns - CARE Score: 88 (06/10/191240 : Yesi Kellogg PT) Walk 50 Feet with Two Turns - CARE Score: 88 (06/13/19 125) Walk 150 Feet - CARE Score: 88 (06/10/191240 : Yesi Kellogg PT) Walk 150 Feet - CARE Score: 88 (06/13/19 125) Walking 10 Feet on Uneven Surfaces - CARE Score: 88 (06/10/191240 : Yesi Kellogg PT) Walking 10 Feet on Uneven Surfaces - CARE Score: 88 (06/13/19 125) 1 Step (Curb) - CARE Score: 88 (06/10/191240 : Yesi Kellogg PT) 1 Step (Curb) - CARE Score: 88 (06/13/19 125) 4 Steps LTG: Partial/moderate assistance(Patient will ascend/descend 4 steps with minimal assistance) 4 Steps - CARE Score: 88 (06/10/191240 : Yesi Kellogg PT) 4 Steps - CARE Score: 88 (06/13/19 125) 12 Steps - CARE Score: 88 (06/10/191240 : Yesi Kellogg PT) 12 Steps - CARE Score: 88 (06/13/19 125) Picking Up Object - CARE Score: 88 (06/10/19 1241 : Yesi Kellogg, PT) Picking Up Object - CARE Score: 88 (06/13/19 1251) Wheel 50 Feet with Two Turns - CARE Score: 1 (06/10/19 1241 : Yesi Kellogg, PT) Wheel 50 Feet with Two Turns - CARE Score: 1 (06/13/19 1251) Wheel 150 Feet LTG: Independent(Patient will propel 150 feet over level surfaces using appropriate compensatory strategies and modified independence) Wheel 150 Feet - CARE Score: 1 (06/10/19 1241 : Yesi Kellogg, PT) Wheel 150 Feet - CARE Score: 1 (06/13/19 1251) PT Other Family Mediator Goals Most Recent Value Other PT Family Mediator Goals Other Goals - Jail Jail 1, Family Mediator 2 Filed on: 06/10/2019 1248 Other Jail Goal 1 Patient will transfer sit to/from stand with minimal assistance Filed on: 06/13/2019 1253 Other Family Mediator Goal 1 Status Not Achieved Filed on: 06/13/2019 1253 Other Jail Goal 2 Patient will transition supine to/from sitting with minimal assistance Filedon: 06/13/2019 1253 Other Jail Goal 2 Status Not Achieved Filed on: 06/13/2019 1253 Expected Achievement Date 08/05/19 Filed on: 06/10/2019 1248 PT Short Term Goal 1: Focus: Car Transfer Level of Assistance to Meet Short Term Goal: Physical assistance 50%-74% Details: Patient will perform car transfer with maximal assistance of one Expected Achievement Date: 06/21/2019 Goal Status: Not Achieved PT Short Term Goal 2: Focus: Walking Level of Assistance to Meet Short Term Goal: Total assistance Details: Patient will ambulate 30 feet without assistive device and maximal assistance x 2 for weight shifting and blocking BLE Expected Achievement Date: 06/21/2019 Status: Not Achieved Walking Distance: 30 feet PT Short Term Goal 3: Focus: Other Level of Assistance to Meet Short Term Goal: Physical assistance 50%-74% Details: Patient will perform stand pivot transfer without assistive device and maximal assistance of one Expected Achievement Date: 06/21/2019 Status: Not Achieved PT Short Term Goal 4: Focus: Other Level of Assistance to Meet Short Term Goal: Physical assistance 25%-49% Details: Patient will transfer sit to stand with moderate assistance of 1 Expected Achievement Date: 06/21/2019 Goal Status: Not Achieved PT Short Term Goal 5: Focus: Wheelchair Management Level of Assistance to Meet Short Term Goal: Supervision Details: Patient will propel wheelchair 50 feet with bilateral lower extremities and supervision Expected Achievement Date: 06/21/2019 Goal Status: Not Achieved Wheelchair Distance: 50 feet BESSYESI, PT 06/13/2019 OT Weekly Progress Note (Notes from 06/07/19 through 06/14/19) OT Weekly Progress Note by Rosemary Murphy OT at 06/13/2019 2:31 PM Author: Rosemary Murphy OT Service: Therapy Author Type: Occupational Therapist Filed: 06/13/2019 2:36 PM Date of Service: 06/13/2019 Status: Signed Air Pumper: Rosemary Murphy OT (Occupational Therapist) Occupational Therapy Weekly Progress Note Patient Name: Ajit Tyler Patient Birthdate: 1960 OT Current Functional Status: Mr. Tyler is currently completing the following: FEEDING: with total assistance. ORAL CARE: does not complete. BATHING: with total assistance. TOILETING: with total assistance for management of catheter and for bowel program. UPPER BODY DRESSING: with total assistance to don/doff gown. LOWER BODY DRESSING: with total assistance, bed level. FOOTWEAR: with total assistance. BED <> W/C TRANSFER: with total assistance for stand pivot transfer- assistance of 2. SIT TO STAND TRANSFER: with maximal assistance of 1. LYING TO SITTING: with total assistance- assistance of 2. SITTING TO LYING: with total assistance, assistance of 2. ROLLING SIDE TO SIDE: with maximal assistance. Mr. Tyler has demonstrated minimal progress in the above areas due to recent evaluation on 06/08, however has demonstrated improvements in support of goals for increased independence. He has demonstrated progress in the area of rolling. Mr. Tyler demonstrates improved force production for functional transfers, improved sitting balance, and improved core strength. He has demonstrated improved BUEROM and strength with participation in neuromuscular re-education. Mr. Tyler continues to present with impaired standing balance, impaired sitting balance, decreased core strength, impaired BUE coordination, strength, and ROM, impaired BUE motor function, pain, decreased sensation, and limited functional ROM secondary to spinal precautions limiting safe and independent participation in ADLs and functional transfers. Mr. Tyler would benefit from continued participation in intensive OT rehabilitation services in order to address self- care, functional transfers, SCI education, and barriers to safe and independent discharge to least restrictive environment. Facilitating Factors in Goal Achievement: Patient understanding and knowledge, Patient compliance, Patient motivation, Other (comment), Decrease in pain and Improved strength (improved upright sitting tolerance ) Barriers to Goal Achievement: Pain, ROM limitations, Strength limitations, Balance deficits, Motor control deficits, Diminished endurance and Spasticity Date Last Assessed: 06/13/2019 Patient needs assistance with the following activities: Activities of daily living, Going out in the community, Use of bathroom equipment, Positioning, Rolling, Sitting balance and Reaching Will patient require a prosthetic or orthotic device upon discharge: No CARE Score Tillman: 6: Independent. Index provides no assistance with tasks. A device may or may not have been used. 5: Set-up or clean-up assistance. Index sets up or cleans up, but does not assist with tasks. Index may have assisted prior to or following the activity. 4: Supervision or touching assistance. Index provides verbal cues or touching/steadying or contactguard assistance. Assistance may be provided throughout the activity or intermittently. 3: Partial/moderate assistance. Index does less than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 % [facility] Lymph % Blood 25.3 20.0 - 43.0 % [facility] [place] % Blood 7.6 5.0 - 13.0 % [facility] EOS % Blood 2.1 0.0 - 6.0 % [facility] Baso % Blood 0.6 0.0 - 2.0 % [facility] Immature Grans % Blood Auto 0.8 0 - 1 % [facility] Neutrophil Abs Blood 4.60 2.01 - 7.14 x10E9/L [facility] Lymph Abs Blood 1.83 1.07 - 3.94 x10E9/L [facility] [place] Abs Blood 0.55 0.26 - 1.07 x10E9/L [facility] EOS Abs Blood 0.15 0 - 0.47 x10E9/L [facility] Baso Abs Blood 0.04 0 - 0.08 x10E9/L [facility] Immature Grans Abs Blood Auto 0.06 0.00 - 0.06 x10E9/L [facility] NRBC /100 WBC Blood Auto 0 /100 WBC [facility] Blood 06/20/2019 3:59 AM CDT 06/20/2019 7:13 AM CDT us Toma Mcfarlane [facility] BLOOD ORDERABLES Final Re sult [facility] [address] [place] [address] * (ABNORMAL) BASIC METABOLIC PANEL (06/20/2019 3:59 AM CDT) Glucose mg/dL Blood 88 70 - 105 mg/dL [facility] Sodium mmol/L Blood 133(L) 136 - 145 mmol/L [facility] Potassium mmol/L Blood 4.8 3.5 - 5.1 mmol/L [facility] Chloride 100 98 - 107 mmol/L [facility] CO2 28 23 - 31 mmol/L [facility] Calcium mg/dL Blood 8.9 8.4 - 10.4 mg/dL [facility] Anion Gap Blood 5(L) 8 - 16 mmol/L [facility] Bun mg/dL Blood 16 8.4 - 25.7 mg/dL [facility] Creatinine 0.69(L) 0.72 - 1.25 mg/dL [facility] Egfr By MDRD ml/Min/1.73 M2 Blood >60 >60 mL/min/1.7 3m2 [facility] Egfr By MDRD ml/Min/1.73 M2 Blood Afr.Amer >60 >60 mL/min/1.7 3m2 [facility] Blood 06/20/2019 3:59 AM CDT 06/20/2019 7:13 AM CDT us Toma Perea Mcfarlane [facility] BLOOD ORDERABLES Final Re sult [facility] [address] [place] [address] * XR abdomen 1 vws (06/17/2019 7:40 AM CDT) Anatomical Region Laterality Modality Body Computed Radiogr aphy 06/17/2019 7:50 AM CDT Narrative 06/17/2019 10:09 AM CDT NARRATIVE: Abdomen AP Indication: Constipation Findings: ??No dilated loops of bowel are identified to suggest obstruction. A moderate volume of stool is present. Santo catheter is seen over the bladder. No free air on this supine film. *Reading Radiologist: Petra Emery on 06/17/2019 at 10:09 AM Procedure Note System, Provider Not In - 05/01/2020 NARRATIVE: Abdomen AP Indication: Constipation Findings: No dilated loops of bowel are identified to suggest obstruction. A moderate volume of stool is present. Santo catheter is seen over the bladder. No free air on this supine film. *Reading Radiologist: Petra Emery on 06/17/2019 at 10:09 AM Toya Stearns MD IMG DIAGNOSTIC IMAGING ORDERAB LES Final Result * Strep A culture, throat (06/16/2019 5:18 PM CDT) Culture Negative for beta-hemolytic Streptococcus Group A [facility] Throat 06/16/2019 5:18 PM CDT 06/16/2019 8:53 PM CDT Tomabrijesh Mcfarlane [facility] MICROBIOLOGY - GENERAL OR DERABLES Final Result Performing Organization Address [facility] Co de Phone Number [facility] [address] [place] [address] * Strep A Screen w/rflx Strep A Culture (06/16/2019 5:18 PM CDT) Pathologist [facility] Strep A Rapid Screen Throat Negative Negative [facility] Throat 06/16/2019 5:18 PM CDT 06/16/2019 6:10 PM CDT Narrative [facility] - 06/16/2019 6:21 PM CDT Test has reflexed to a Strep A culture. [facility] Eliazar Mcfarlane [facility] MICROBIOLOGY - GENERAL OR DERABLES Final Result Performing Organization Address City/[facility]/ZIP Co de Phone Number [facility] [address] [place] [address] * (ABNORMAL) CBC WITH AUTO DIFFERENTIAL (06/16/2019 5:10 AM CDT) WBC X(10)9/L Blood 7.8 4.4 - 10.7 x10E9/L [facility] Corrected WBC X(10)9/L Blood [facility] Rbc X(10)12/L Blood 4.47 3.80 - 5.40 x10E12/L [facility] HGB gm/dL Blood 12.2 12.0 - 17.6 gm/dL [facility] HCT % Blood 38.5 35.2 - 51.7 % [facility] MCV fL Blood 86.1 80.7 - 98.3 fl [facility] MCH pg Blood 27.3 26.7 - 34.0 pg [facility] MCHC gm/dL Blood 31.7 30.8 - 35.9 gm/dL [facility] Plt Ct X(10)9/L Blood 500(H) 153 - 416 x10E9/L [facility] RDW-Cv % Blood 13.4 12.1 - 14.9 % [facility] MPV fL Blood 9.5 9.4 - 12.9 fl [facility] Neutrophil % Blood 66.9 44.0 - 73.0 % [facility] Lymph % Blood 20.2 20.0 - 43.0 % [facility] [place] % Blood 7.5 5.0 - 13.0 % [facility] EOS % Blood 2.4 0.0 - 6.0 % [facility] Baso % Blood 0.8 0.0 - 2.0 % [facility] Immature Grans % Blood Auto 2.2(H) 0 - 1 % [facility] Neutrophil Abs Blood 5.21 2.01 - 7.14 x10E9/L [facility] Lymph Abs Blood 1.57 1.07 - 3.94 x10E9/L [facility] [place] Abs Blood 0.58 0.26 - 1.07 x10E9/L [facility] EOS Abs Blood 0.19 0 - 0.47 x10E9/L [facility] Baso Abs Blood 0.06 0 - 0.08 x10E9/L [facility] Immature Grans Abs Blood Auto 0.17(H) 0.00 - 0.06 x10E9/L [facility] NRBC /100 WBC Blood Auto 0 /100 WBC [facility] Blood 06/16/2019 5:10 AM CDT 06/16/2019 6:25 AM CDT Toma HENDERSONP LAB BLOOD ORDERABLES Final Re sult Performing Organization Address [facility] Co de Phone Number [facility] [address] [place] [address] * (ABNORMAL) BASIC METABOLIC PANEL (06/16/2019 5:10 AM CDT) Glucose mg/dL Blood 92 70 - 105 mg/dL [facility] Sodium mmol/L Blood 134(L) 136 - 145 mmol/L [facility] Potassium mmol/L Blood 4.7 3.5 - 5.1 mmol/L [facility] Chloride 99 98 - 107 mmol/L [facility] CO2 26 23 - 31 mmol/L [facility] Calcium mg/dL Blood 9.1 8.4 - 10.4 mg/dL [facility] Anion Gap Blood 9 8 - 16 mmol/L [facility] Bun mg/dL Blood 17 8.4 - 25.7 mg/dL [facility] Creatinine 0.74 0.72 - 1.25 mg/dL [facility] Egfr By MDRD ml/Min/1.73 M2 Blood >60 >60 mL/min/1.7 3m2 [facility] Egfr By MDRD ml/Min/1.73 M2 Blood Afr.Amer >60 >60 mL/min/1.7 3m2 [facility] Blood 06/16/2019 5:10 AM CDT 06/16/2019 6:25 AM CDT Toma Mcfarlane [facility] BLOOD ORDERABLES Final Re sult Performing Organization Address [facility] Co de Phone Number [facility] [address] [place] [address] * (ABNORMAL) BASIC METABOLIC PANEL (06/13/2019 4:40 AM CDT) Glucose mg/dL Blood 96 70 - 105 mg/dL [facility] Sodium mmol/L Blood 133(L) 136 - 145 mmol/L [facility] Potassium mmol/L Blood 5.1 3.5 - 5.1 mmol/L [facility] Chloride 98 98 - 107 mmol/L [facility] CO2 28 23 - 31 mmol/L [facility] Calcium mg/dL Blood 8.8 8.4 - 10.4 mg/dL [facility] Anion Gap Blood 7(L) 8 - 16 mmol/L [facility] Bun mg/dL Blood 15 8.4 - 25.7 mg/dL [facility] Creatinine 0.67(L) 0.72 - 1.25 mg/dL [facility] Egfr By MDRD ml/Min/1.73 M2 Blood >60 >60 mL/min/1.7 3m2 [facility] Egfr By MDRD ml/Min/1.73 M2 Blood Afr.Amer >60 >60 mL/min/1.7 3m2 [facility] Blood 06/13/2019 4:40 AM CDT 06/13/2019 6:42 AM CDT us Catalina Patricia NP LAB BLOOD ORDERABLES Final Resul t [facility] [address] [address] [address] * (ABNORMAL) CBC WITH AUTO DIFFERENTIAL (06/13/2019 4:40 AM CDT) WBC X(10)9/L Blood 7.5 4.4 - 10.7 x10E9/L [facility] Corrected WBC X(10)9/L Blood [facility] Rbc X(10)12/L Blood 4.18 3.80 - 5.40 x10E12/L [facility] HGB gm/dL Blood 11.5(L) 12.0 - 17.6 gm/dL [facility] HCT % Blood 35.9 35.2 - 51.7 % [facility] MCV fL Blood 85.9 80.7 - 98.3 fl [facility] MCH pg Blood 27.5 26.7 - 34.0 pg [facility] MCHC gm/dL Blood 32.0 30.8 - 35.9 gm/dL [facility] Plt Ct X(10)9/L Blood 572(H) 153 - 416 x10E9/L [facility] RDW-Cv % Blood 13.4 12.1 - 14.9 % [facility] MPV fL Blood 9.1(L) 9.4 - 12.9 fl [facility] Neutrophil % Blood 63.4 44.0 - 73.0 % [facility] Lymph % Blood 24.6 20.0 - 43.0 % [facility] [place] % Blood 7.1 5.0 - 13.0 % [facility] EOS % Blood 2.4 0.0 - 6.0 % [facility] Baso % Blood 0.9 0.0 - 2.0 % [facility] Immature Grans % Blood Auto 1.6(H) 0 - 1 % [facility] Neutrophil Abs Blood 4.75 2.01 - 7.14 x10E9/L [facility] Lymph Abs Blood 1.84 1.07 - 3.94 x10E9/L [facility] [place] Abs Blood 0.53 0.26 - 1.07 x10E9/L [facility] EOS Abs Blood 0.18 0 - 0.47 x10E9/L [facility] Baso Abs Blood 0.07 0 - 0.08 x10E9/L [facility] Immature Grans Abs Blood Auto 0.12(H) 0.00 - 0.06 x10E9/L [facility] NRBC /100 WBC Blood Auto 0 /100 WBC [facility] Blood 06/13/2019 4:40 AM CDT 06/13/2019 6:42 AM CDT us Catalina Patricia NP LAB BLOOD ORDERABLES Final Resul t [facility] [address] [place] [address] * (ABNORMAL) BASIC METABOLIC PANEL (06/10/2019 4:35 AM CDT) Glucose mg/dL Blood 85 70 - 105 mg/dL [facility] Sodium mmol/L Blood 135(L) 136 - 145 mmol/L [facility] Potassium mmol/L Blood 3.3(L) 3.5 - 5.1 mmol/L [facility] Chloride 98 98 - 107 mmol/L [facility] CO2 28 23 - 31 mmol/L [facility] Calcium mg/dL Blood 8.1(L) 8.4 - 10.4 mg/dL [facility] Anion Gap Blood 9 8 - 16 mmol/L [facility] Bun mg/dL Blood 11 8.4 - 25.7 mg/dL [facility] Creatinine 0.66(L) 0.72 - 1.25 mg/dL [facility] Egfr By MDRD ml/Min/1.73 M2 Blood >60 >60 mL/min/1.7 3m2 [facility] Egfr By MDRD ml/Min/1.73 M2 Blood Afr.Amer >60 >60 mL/min/1.7 3m2 [facility] Blood 06/10/2019 4:35 AM CDT 06/10/2019 7:07 AM CDT us Jayjay Barnes MD LAB BLOOD ORDERABLES Final Re sult [facility] [address] [address] [address] * (ABNORMAL) CBC WITH AUTO DIFFERENTIAL (06/10/2019 4:35 AM CDT) WBC X(10)9/L Blood 7.1 4.4 - 10.7 x10E9/L [facility] Corrected WBC X(10)9/L Blood [facility] Rbc X(10)12/L Blood 3.75(L) 3.80 - 5.40 x10E12/L [facility] HGB gm/dL Blood 10.4(L) 12.0 - 17.6 gm/dL [facility] HCT % Blood 31.7(L) 35.2 - 51.7 % [facility] MCV fL Blood 84.5 80.7 - 98.3 fl [facility] MCH pg Blood 27.7 26.7 - 34.0 pg [facility] MCHC gm/dL Blood 32.8 30.8 - 35.9 gm/dL [facility] Plt Ct X(10)9/L Blood 489(H) 153 - 416 x10E9/L [facility] RDW-Cv % Blood 13.2 12.1 - 14.9 % [facility] MPV fL Blood 9.6 9.4 - 12.9 fl [facility] Neutrophil % Blood 70.8 44.0 - 73.0 % [facility] Lymph % Blood 17.0(L) 20.0 - 43.0 % [facility] [place] % Blood 8.3 5.0 - 13.0 % [facility] EOS % Blood 1.8 0.0 - 6.0 % [facility] Baso % Blood 0.4 0.0 - 2.0 % [facility] Immature Grans % Blood Auto 1.7(H) 0 - 1 % [facility] Neutrophil Abs Blood 5.03 2.01 - 7.14 x10E9/L [facility] Lymph Abs Blood 1.21 1.07 - 3.94 x10E9/L [facility] [place] Abs Blood 0.59 0.26 - 1.07 x10E9/L [facility] EOS Abs Blood 0.13 0 - 0.47 x10E9/L [facility] Baso Abs Blood 0.03 0 - 0.08 x10E9/L [facility] Immature Grans Abs Blood Auto 0.12(H) 0.00 - 0.06 x10E9/L [facility] NRBC /100 WBC Blood Auto 0 /100 WBC [facility] Blood 06/10/2019 4:35 AM CDT 06/10/2019 7:07 AM CDT Jayjay Barnes MD LAB BLOOD ORDERABLES Final Re sult [facility] [address] [place] [address] documented in this encounter Visit Diagnoses Diagnosis Central cord syndrome <Subsequent>- Primary Neurogenic bowel Neurogenic bladder Cervical spinal cord injury <Subsequent> Spinal injury <Initial> Cervical spinal cord injury documented in this encounter Admitting Diagnoses Diagnosis Cervical spinal cord injury documented in this encounter Administered Medications Inactive Administered Medications - up to 3 most recent administrations Medication Order MAR Action Action Date Dose Rate Site acetaminophen (TYLENOL) tablet 650 mg 650 mg, Oral, Every 6 hours PRN, Starting on Bertha 06/09/19 at 1650, Until Thu07/08/19 at 1634, mild pain Given 07/04/2019 1:03 PM CDT 650 mg Given 07/02/2019 7:46 AM CDT 650 mg Given 07/01/2019 8:52 AM CDT 650 mg Apixaban (ELIQUIS) tablet 2.5 mg 2.5 mg, Oral, 2 times daily (2 times per day), 67 doses, First dose (after last modification) on Thu06/09/19 at 2100, Last dose on Thu07/12/19 at 2100 Given 07/08/2019 9:17 AM CDT 2.5 mg Given 07/07/2019 9:31 PM CDT 2.5 mg Given 07/07/2019 8:50 AM CDT 2.5 mg Benzocaine-Menthol (CEPACOL) 1 lozenge 1 lozenge, Oral, 3 times daily with meals, First dose on Thu07/03/19 at 1700, Until Discontinued, Allow to dissolve slowly in mouth. Given 07/05/2019 7:55 AM CDT 1 lozenge Given 07/03/2019 4:49 PM CDT 1 lozenge Benzocaine-Menthol (CEPACOL) 1 lozenge 1 lozenge, Oral, 3 times daily PRN, Starting on Thu07/06/19 at 1215, Until Thu07/08/19 at 1634, sore throat, Allow to dissolve slowly in mouth. bisacodyl (DULCOLAX) suppository 10 mg 10 mg, Rectal, Every 24 hours (Interval), First dose on Thu06/10/19 at 1800, Until Discontinued Given 06/16/2019 6:06 PM CDT 10 mg Given 06/15/2019 5:24 PM CDT 10 mg Given 06/14/2019 5:16 PM CDT 10 mg bisacodyl (DULCOLAX) suppository 10 mg 10 mg, Rectal, Every 48 hours, First dose (after last modification) on Thu06/17/19 at 1800, Until Discontinued, Please perform digital stimulation with suppository, thanks! Given 07/05/2019 5:5 8 PM CDT 10 mg Given 07/03/2019 6:39 PM CDT 10 mg Given 07/01/2019 6:18 PM CDT 10 mg bisacodyl (DULCOLAX) suppository 10 mg 10 mg, Rectal, Daily PRN, Starting on Thu06/16/19 at 2253, Until Thu07/08/19 at 1634, constipation, may be given on non-scheduled suppository days if needed/requested calcium carbonate (TUMS) chewable tablet 500 mg 500 mg, Oral, 2 times daily with meals, First dose (after last modification) on Thu06/09/19 at 1715, Until Discontinued Given 07/08/2019 9:17 AM CDT 500 mg Given 07/07/2019 5:40 PM CDT 500 mg Given 07/07/2019 8:49 AM CDT 500 mg cefdinir (OMNICEF) capsule 300 mg 300 mg, Oral, 2 times daily (2 times per day), 14 doses, First dose (after last modification) on Thu06/09/19 at 2100, Last dose on Thu06/16/19 at 0900 Given 06/16/2019 11:02 AM CDT 300 mg Given 06/15/2019 8:29 PM CDT 300 mg Given 06/15/2019 9:06 AM CDT 300 mg cyclobenzaprine (FLEXERIL) tablet 5 mg 5 mg, Oral, 3 times daily PRN, Starting on Thu06/09/19 at 1650, Until Thu07/07/19 at 1707, muscle spasms Given 06/16/2019 9:23 PM CDT 5 mg Given 06/15/2019 8:29 PM CDT 5 mg Given 06/14/2019 10:44 PM CDT 5 mg Diclofenac Sodium (VOLTAREN) 1 % gel 2 g 2 g, Topical, 3 times daily (3 times per day), First dose (after last modification) on Thu06/30/19 at 1500, Until Discontinued, Apply to elbows and shoulders, neck Given 06/30/2019 8:13 PM CDT 2 g Given 06/30/2019 4:40 PM CDT 2 g Diclofenac Sodium (VOLTAREN) 1 % gel 2 g 2 g, Topical, 4 times daily PRN, Starting on Thu07/01/19 at 1315, Until Thu07/08/19 at 1634, elbow, shoulder, neck pain PRN, Apply to elbows and shoulders, neck docusate sodium (COLACE) capsule 100 mg 100 mg, Oral, Daily, First dose (after last modification) on Thu06/10/19 at 0900, Until Discontinued, Swallow whole. Do not crush, open, chew, or split capsule. Given 06/21/2019 8:27 AM CDT 100 mg Given 06/20/2019 10:08 AM CDT 100 mg Given 06/19/2019 9:48 AM CDT 100 mg docusate sodium (COLACE) capsule 100 mg 100 mg, Oral, 2 times daily (2 times per day), First dose (after last modification) on Thu06/22/19 at 0900, Until Discontinued, Swallow whole. Do not crush, open, chew, or split capsule. Given 06/24/2019 9:31 AM CDT 100 mg Given 06/23/2019 8:20 PM CDT 100 mg Given 06/23/2019 8:59 AM CDT 100 mg docusate sodium (COLACE) capsule 100 mg 100 mg, Oral, 2 times daily (2 times per day), First dose (after last modification) on Thu06/26/19 at 0900, Until Discontinued, Swallow whole. Do not crush, open, chew, or split capsule. Given 06/28/2019 9:54 PM CDT 100 mg Given 06/28/2019 8:25 AM CDT 100 mg Given 06/27/2019 9:06 PM CDT 100 mg docusate sodium (COLACE) capsule 100 mg 100 mg, Oral, 2 times daily (2 times per day), First dose (after last modification) on Thu07/01/19 at 1130, Until Discontinued, Swallow whole. Do not crush, open, chew, or split capsule. Given 07/07/2019 9:31 PM CDT 100 mg Given 07/07/2019 8:50 AM CDT 100 mg Given 07/06/2019 9:04 PM CDT 100 mg fluconazole (DIFLUCAN) tablet 200 mg 200 mg, Oral, Daily, 5 doses, First dose on Thu06/25/19 at 1015, Last dose on Thu06/29/19 at 0900, Reason for Therapy: Fungal Infection Suspected, Type of Therapy: New Therapy, Indication: Skin-soft tissue infection, Comments: throat Given 06/29/2019 9:27 AM CDT 200 mg Given 06/28/2019 8:32 AM CDT 200 mg Given 06/27/2019 8:15 AM CDT 200 mg guaiFENesin (MUCINEX) 12 hr tablet 600 mg 600 mg, Oral, 2 times daily (2 times per day), First dose on [facility] 06/25/19 at 1015, Until Discontinued, DO NOT CRUSH, CUT, OR CHEW. Given 07/08/2019 9:17 AM CDT 60 0 mg Given 07/07/2019 9:31 PM CDT 600 mg Given 07/07/2019 8:49 AM CDT 600 mg ipratropium-albuterol (DUO-NEB) 0.5-2.5 mg/3 mL nebulizer solution 3 mL 3 mL, Inhalation, RT 4 times daily, 20 doses, First dose on [facility] 06/25/19 at 1200, Last dose on [facility] 06/30/19 at 0800 Given 06/25/2019 4:32 PM CDT 3 mL Given 06/25/2019 12:23 PM CDT 3 mL ipratropium-albuterol (DUO-NEB) 0.5-2.5 mg/3 mL nebulizer solution 3 mL 3 mL, Inhalation, RT 4 times daily, 18 doses, First dose (after last modification) on [facility] 06/25/19 at 2100, Last dose on [facility] 06/30/19 at 0600 Given 06/26/2019 10:38 AM CDT 3 mL Given 06/26/2019 6:08 AM CDT 3 mL Given 06/25/2019 9:25 PM CDT 3 mL ipratropium-albuterol (DUO-NEB) 0.5-2.5 mg/3 mL nebulizer solution 3 mL 3 mL, Inhalation, RT 4 times daily PRN, Starting on Thu06/27/19 at 1200, Until Thu07/08/19 at 1634, wheezing, shortness of breath magnesium hydroxide (MILK OF MAGNESIA) 400 MG/5ML suspension 15 mL 15 mL, Oral, Once, 1 dose, On Thu06/17/19 at 1430 Given 06/17/2019 3:01 PM CDT 15 mL montelukast (SINGULAIR) tablet 10 mg 10 mg, Oral, Daily, First dose (after last modification) on Thu06/10/19 at 0900, Until Discontinued Given 07/08/2019 9:17 AM CDT 10 mg Given 07/07/2019 8:49 AM CDT 10 mg Given 07/06/2019 9:43 AM CDT 10 mg mupirocin (BACTROBAN) 2 % ointment Topical, 2 times daily (2 times per day), 14 doses, First dose on Thu06/23/19 at 2100, Last dose on Thu06/30/19 at 0900, Apply to penile meatus- erosion from previous santo . Perform rocio cleansing with soap and water first, Reason for Therapy: Bacterial Infection Suspected, Type of Therapy: New Therapy, Indication: Skin-soft tissue infection Given 06/30/2019 9:49 AM CDT Given 06/29/2019 8:23 PM CDT Given 06/29/2019 9:27 AM CDT muscle rub (ICY HOT) 10-15 % cream Topical, 3 times daily (3 times per day), First dose on Thu06/24/19 at 1300, Until Discontinued, Apply to right shoulder Given 06/27/2019 8:15 AM CDT Given 06/26/2019 4:56 PM CDT Given 06/26/2019 12:13 PM CDT muscle rub (ICY HOT) 10-15 % cream Topical, 3 times daily PRN, Starting on Thu06/27/19 at 1315, Until Thu06/29/19 at 0954, PRN right shoulder pain, Apply to right shoulder Given 06/28/2019 1:11 PM CDT nystatin (MYCOSTATIN) [id number] UNIT/ML suspension 500,000 Units 500,000 Units, Mouth/Throat, 4 times daily, 56 doses, First dose on Thu06/21/19 at 2100, Last dose on Thu07/05/19 at 1700, Swish or swab in mouth., Reason for Therapy: Fungal Infection Suspected, Type of Therapy: New Therapy, Indication: Skin-soft tissue infection, Comments: sore throat and oral cavity Given 06/26/2019 8:47 PM CDT 500,000 Units Given 06/25/2019 8:03 PM CDT 500,000 Units Given 06/25/2019 12:21 PM CDT 500,000 Units nystatin (MYCOSTATIN) [id number] UNIT/ML suspension 500,000 Units 500,000 Units, Mouth/Throat, 4 times daily, 20 doses, First dose on Thu06/29/19 at 1300, Last dose on Thu07/04/19 at 0900, Swish and swallow, Reason for Therapy: Fungal Infection Suspected, Type of Therapy: Modification of Therapy, Indication: Other, Specify: oral thrush Given 07/04/2019 8:27 AM CDT 500,000 Units Given 07/03/2019 8:26 PM CDT 500,000 Units Given 07/03/2019 4:49 PM CDT 500,000 Units oxyCODONE (ROXICODONE) immediate release tablet 5 mg 5 mg, Oral, Every 4 hours PRN, Starting on Thu06/09/19 at 1704, Until Thu07/07/19 at 1707, moderate pain Given 06/10/2019 9:10 PM CDT 5 mg phenol 1.4 % 0.05 mL 0.05 mL (1 spray), Mouth/Throat, Every 2 hour PRN, Starting on Thu06/09/19 at 1653, Until Thu06/14/19 at 1429, sore throat Given 06/10/2019 4:36 PM CDT 0.05 mL phenol 1.4 % 0.05 mL 0.05 mL (1 spray), Mouth/Throat, 3 times daily (3 times per day), First dose (after last modification) on Thu06/14/19 at 1500, Until Discontinued Given 07/03/2019 9:08 AM CDT 0.05 mL Given 07/01/2019 8:42 PM CDT 0.05 mL Given 07/01/2019 4:14 PM CDT 0.05 mL potassium chloride (K-DUR,KLOR-CON) CR tablet 40 mEq 40 mEq, Oral, Once, 1 dose, On Thu06/10/19 at 0930, DO NOT CRUSH, CUT, OR CHEW. Given 06/10/2019 10:30 AM CDT 40 mEq MARIAH-BID (LACTOBACILLUS) PROBIOTIC 1 tablet 1 tablet (1 each), Oral, Daily with breakfast, 7 doses, First dose on Thu06/15/19 at 0800, Last dose on Thu06/21/19 at 0800 Given 06/21/2019 8:27 AM CDT 1 tablet Given 06/20/2019 7:43 AM CDT 1 tablet Given 06/19/2019 9:48 AM CDT 1 tablet sodium chloride (OCEAN) 0.65 % nasal spray 1 spray 1 spray, Each Nostril, 2 times daily (2 times per day), First dose on Thu06/14/19 at 2100, Until Discontinued Given 07/07/2019 9:31 PM CDT 1 spray Given 07/06/2019 9:04 PM CDT 1 spray Given 07/06/2019 9:45 AM CDT 1 spray documented in this encounter Active and Recently Administered Medications Times are shown in CDT. Scheduled Medication Order 07/06/2019 07/07/2019 07/08/2019 Apixaban (ELIQUIS) tablet 2.5 mg 2.5 mg, Oral, 2 times daily (2 times per day), 67 doses, First dose (after last modification) on Thu06/09/19 at 2100, Last dose on Thu07/12/19 at 2100 0943 (Given - Provider: Jonatan Wilson RN)210 (Given - Provider: Felisha Eddy, HIRAL) 0850 (Given - Provider: Riri Johnson RN)213 (Given - Provider: Tiarra Dawn RN) 0917 (Given - Provider: Riri Johnson RN) bisacodyl (DULCOLAX) suppository 10 mg 10 mg, Rectal, Every 48 hours, First dose (after last modification) on Thu06/17/19 at 1800, Until Discontinued, Please perform digital stimulation with suppository, thanks! 1740 (Not Given - Provider: Riri Johnson RN - Reason: Order parameters not met - Comment: BM's x three refused suppos.) calcium carbonate (TUMS) chewable tablet 500 mg 500 mg, Oral, 2 times daily with meals, First dose (after last modification) on Thu06/09/19 at 1715, Until Discontinued 0735 (Given - Provider: Jonatan Wilson RN)1700 (Given - Provider: Cinthya Urena RN) 0849 (Given - Provider: Riri Johnson RN)1740 (Given - Provider: Riri Johnson RN) 0917 (Given - Provider: Riri Johnson RN) docusate sodium (COLACE) capsule 100 mg 100 mg, Oral, 2 times daily (2 times per day), First dose (after last modification) on Thu07/01/19 at 1130, Until Discontinued, Swallow whole. Do not crush, open, chew, or split capsule. 0943 (Given - Provider: Jonatan Wilson RN)210 (Given - Provider: Felisha Eddy RN) 0850 (Given - Provider: Riri Johnson RN)2130 (Given - Provider: Tiarra Dawn RN) 09 (Not Given - Provider: Riri Johnson RN - Reason: Other - Comment: Looser stools) guaiFENesin (MUCINEX) 12 hr tablet 600 mg 600 mg, Oral, 2 times daily (2 times per day), First dose on Thu06/25/19 at 1015, Until Discontinued, DO NOT CRUSH, CUT, OR CHEW. 0942 (Given - Provider: Jonatan Wilson RN)2103 (Given - Provider: Felisha Eddy RN) 0849 (Given - Provider: Riri Johnson RN)2130 (Given - Provider: Tiarra Dawn RN) 09 (Given - Provider: Riri Johnson RN) montelukast (SINGULAIR) tablet 10 mg 10 mg, Oral, Daily, First dose (after last modification) on Thu06/10/19 at 0900, Until Discontinued 0943 (Given - Provider: Jonatan Wilson RN) 0849 (Given - Provider: Riri Johnson RN) 09 (Given - Provider: Riri Johnson RN) sodium chloride (OCEAN) 0.65 % nasal spray 1 spray 1 spray, Each Nostril, 2 times daily (2 times per day), First dose on Thu06/14/19 at 2100, Until Discontinued 0945 (Given - Provider: Jonatan Wilson RN)2103 (Given - Provider: Felisha Eddy RN) 09 (Not Given - Provider: Riri Johnson RN - Reason: Patient/family refused)2130 (Given - Provider: Tiarra Dawn RN) 09 (Not Given - Provider: Riri Johnson RN - Reason: Patient/family refused) PRN Medication Order 07/06/2019 07/07/2019 07/08/2019 acetaminophen (TYLENOL) tablet 650 mg 650 mg, Oral, Every 6 hours PRN, Starting on Bertha 06/09/19 at 1650, Until Thu07/08/19 at 1634, mild pain Benzocaine-Menthol (CEPACOL) 1 lozenge 1 lozenge, Oral, 3 times daily PRN, Starting on Thu07/06/19 at 1215, Until Thu07/08/19 at 1634, sore throat, Allow to dissolve slowly in mouth. bisacodyl (DULCOLAX) suppository 10 mg 10 mg, Rectal, Daily PRN, Starting on Bertha 06/16/19 at 2253, Until Thu07/08/19 at 1634, constipation, may be given on non-scheduled suppository days if needed/requested Diclofenac Sodium (VOLTAREN) 1 % gel 2 g 2 g, Topical, 4 times daily PRN, Starting on Thu07/01/19 at 1315, Until Thu07/08/19 at 1634, elbow, shoulder, neck pain PRN, Apply to elbows and shoulders, neck ipratropium-albuterol (DUO-NEB) 0.5-2.5 mg/3 mL nebulizer solution 3 mL 3 mL, Inhalation, RT 4 times daily PRN, Starting on 06/27/19 at 1200, Until Thu07/08/19 at 1634, wheezing, shortness of breath documented in this encounter
--- OUTSIDE RECORDS SUMMARY | 2024-02-27 12:14 | XMS_ITS | Encounter Summary ---
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 (06/01/191554 : Yesi Kellogg PT) N/A or No Goal Listed Walking 10 Feet on Uneven Surfaces - CARE Score: 88 (06/01/191554 : Leander Kellogg PT) N/A or No Goal Listed 1 Step (Curb) - CARE Score: 88 (06/01/191554 : Yesi Kellogg PT) N/A or No Goal Listed 4 Steps - CARE Score: 88 (06/01/191554 : Yesi Kellogg PT) N/A or No Goal Listed 12 Steps - CARE Score: 88 (06/01/191554 : Yesi Kellogg, PT) N/A or No Goal Listed Picking Up Object - CARE Score: 88 (06/01/191554 : Yesi Kellogg PT) N/A or No Goal Listed Wheel 150 Feet LTG: Partial/moderate assistance(Patient will propel >150 feet in manual wheelchair with modified independence) Not achieved PT Other Prison Goals Most Recent Value Other PT Ordinary Seaman Goals Other Goals - Ordinary Seaman Ordinary Seaman 1, Prison 2, Ordinary Seaman 3 Filed on: 06/01/2019 1605 Other Prison Goal 1 Patient will transfer to standing with minimal assistance Filed on: 06/01/2019 1605 Other Ordinary Seaman Goal 1 Status Established Filed on: 06/01/2019 1605 Other Prison Goal 2 Patient will roll side to side in bed with setup assistance Filed on: 06/01/2019 1605 Other Prison Goal 2 Status Established Filed on: 06/01/2019 1605 Other Prison Goal 3 Patient will transition supine to/from sitting with minimal assistance Filedon: 06/01/2019 1605 Other Ordinary Seaman Goal 3 Status Established Filed on: 06/01/2019 1605 Expected Achievement Date 07/13/19 Filed on: 06/01/2019 1605 YESI KELLOGG, PT 06/07/2019 * OT Discharge Summary - Rosemary Mario Jeffrey, OT - 06/06/2019 8:40 PM CDT Occupational Therapy Discharge Summary Patient Name: Ajit Tyler Patient Birthdate: 1960 OT Current Functional Status: Mr. Tyler was completing the following at discharge: FEEDING: with total assistance. BATHING: with total assistance, sponge bathing w/c level. TOILETING: with total assistance for bowel program and bladder management. UPPER BODY DRESSING: observed donning gown only with total assistance. LOWER BODY DRESSING: with total assistance, bed level. FOOTWEAR: with total assistance. BED <> W/C TRANSFER: with total assistance- maximal assistance of 1 and minimal assistance ofsecond for stand pivot transfer (improving from maximal assistance of 2) TOILET TRANSFER: per RN report, with total assistance utilizing estrella for transfer to padded commode chair with tilt feature. SIT TO STAND: with total assistance, assistance of 2. LYING TO SITTING: with total assistance, assistance of 2. ROLLING SIDE TO SIDE: with total assistance, assistance of 2. Mr. Tyler was discharged to acute setting due to change in medical status. With participation in intensive OT rehabilitation services in the inpatient setting, Mr. Tyler had demonstrated progress with RUE strength and motor function, pain management, upright sitting tolerance, and force production for functional transfers. When deemed medically stable, Mr. Tyler would benefit from return to inpatient rehabilitation in order to receive intensive OT services to address continued barriers to safety and independence with ADLs and functional transfers, for neuromuscular re-education, and for SCI education. 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 [place] provides no assistance with tasks. A device may or may not have been used. 5: Set-up or clean-up assistance. [place] sets up or cleans up, but does not assist with tasks. [place] may have assisted prior to or following the activity. 4: Supervision or touching assistance. [place] provides verbal cues or touching/steadying or contactguard assistance. Assistance may be provided throughout the activity or intermittently. 3: Partial/moderate assistance. [place] does less than half the effort. [place] lifts, holds, or supports trunk or limbs, but provides less than half the effort. 2: Substantial/maximal assistance. [place] does more than half the effort. [place] lifts or holds trunk or limbs, and provides more than half the effort. 1: Dependent. [place] does all of the effort, or the [...] due to medical condition or safety concerns Ordinary Seaman Goals: Goal Goal Status Discharge Status Eating LTG: Partial/moderate assistance(utilizing AE and modified techniques as needed ) Not Achieved Eating - CARE Score: 1 (06/01/19 1011 : Rosemary Murphy OT) N/A or No Goal Listed Oral Hygiene - CARE Score: 9 (06/01/19 1011 : Rosemary Murphy OT) Toileting Hygiene LTG: Substantial/maximal assistance(with no verbal cues required for direction ofself-care ) Not Achieved Toileting Hygiene - CARE Score: 88 (06/01/19 1011 : Rosemary Murphy OT) Shower/Bathe Self LTG: Partial/moderate assistance(utilizing AE and modified techniques as needed )Not Achieved Shower/Bathe Self - CARE Score: 1 (06/01/19 1011 : Rosemary Murphy OT) Upper Body Dressing LTG: Substantial/maximal assistance(utilizing AE and modified techniques as needed ) Not Achieved Upper Body Dressing - CARE Score: 10 (06/01/19 1011 : Rosemary Murphy OT) Lower Body Dressing LTG: Substantial/maximal assistance(with AE and modified techniques as needed )Not Achieved Lower Body Dressing - CARE Score: 1 (06/01/19 1011 : Rosemary Murphy OT) N/A or No Goal Listed Putting On/Taking Off Footwear - CARE Score: 1 (06/01/19 1011 : Rosemary Murphy OT) N/A or No Goal Listed Roll Left and Right - CARE Score: 1 (06/01/19 1011 : Rosemary Murphy OT) N/A or No Goal Listed Sit to Lying - CARE Score: 1 (06/01/19 1011 : Rosemary Murphy OT) N/A or No Goal Listed Lying to Sitting on Side of Bed - CARE Score: 1 (06/01/19 1011 : Rosemary Murphy OT) N/A or No Goal Listed Sit to Stand - CARE Score: 1 (06/01/19 1011 : Rosemary Murphy OT) Chair/Gut-zm-Pgtfu Transfer LTG: Supervision or touching assistance(utilizing least restrictive device as needed ) Not Achieved Chair/Tey-fc-Dqqcj Transfer - CARE Score: 1 (06/01/19 1011 : Rosemary Murphy OT) Toilet Transfer LTG: Supervision or touching assistance(utilizing least restrictive device as needed ) Not Achieved Toilet Transfer - CARE Score: 7 (06/01/19 1011 : Rosemary Murphy OT) Additional Goals: N/A ROSEMARY MURPHY OT 06/07/2019 * Therapy Tx Cancellation Note - Rosemary Murphy OT - 06/06/2019 12:27 PM CDT Therapy Treatment Cancellation Note Patient Name: Ajit Tyler Patient Birthdate: 1960 Therapy Type: Occupational Therapy Scheduled Appointment Time: 0900 Reason for Cancellation: Medical Issues - Other Rescheduling Ability and Other Comments: Pt. unable to safely participate this date due to medical hold per MD pending medical testing. Will attempt reschedule when deemed medically stable. Missed Minutes : -90 (06/06/19 1225) ROSEMARY MURPHY, OT 06/06/2019 * Therapy Tx Cancellation Note - Yesi Kellogg, PT - 06/06/2019 10:30 AM CDT Therapy Treatment Cancellation Note Patient Name: Ajit Tyler Patient Birthdate: 1960 Therapy Type: Physical Therapy Scheduled Appointment Time: 1030 Reason for Cancellation: Medical Issues - Other Rescheduling Ability and Other Comments: Pt placed on medical hold for remainder of day per rehab doctor due to fever and respiratory symptoms. Will attempt to reschedule and make up missed minutes as soon as pt is medically stable. 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 Pain Assessment Pain Context: Therapy Assessment Prior to Treatment (06/05/19 1030) Pain Assessment: NRS 0-10 (06/05/19 1030) Pain Score: 2 (06/05/19 1030) Pain Type: Acute pain (06/05/19 1030) Pain Location: Back (06/05/19 1030) Pain Orientation: Right, Left (06/05/19 1030) Pain Descriptors: Aching (06/05/19 1030) Pain Onset: Ongoing (06/05/19 1030) Pain Frequency: Constant/continuous (06/05/19 1030) Aggravating Factors: Positioning (06/05/19 1030) Alleviating Factors: used to estrella to repostition and get into wheelchair (06/05/19 1030) Pre-therapy pain intervention required: Patient expressed pain is tolerable/able to proceed (06/05/19 1030) Pain Interventions Education Provided: Patient (06/05/19 1030) Non-Pharmacologic Pain Interventions: Position/Reposition, Rest (06/05/19 1030) ADL Status: Dressing Lower Body: Total Assistance/Dependent Lower Body Dressing Where Assessed: Supine in bed Lower Body Dressing Comments: Pt completed lower body dressing, supine in bed with total assistancefor log rolling, doffing and donning briefs and donning gown. With knees flexed and legs fixed in bridge position, pt was able to lift hips briefly. Bed, Chair, Wheelchair Transfer: Total Assistance/Dependent Bed/Chair Transfer to: Wheelchair Bed/Chair Transfer from: Bed Bed/Chair Transfer Technique: Mechanical lift Bed/Chair Transfer Comments: Pt completed bed to wheelchair transfer using estrella lift with total assistance. ROM: Yes R Motion All Joints: Passive range of motion R Position All Joints: Seated R Weight/Reps/Sets All Joints: 10 reps x 2. Pt tolerated all PROM exercises. Pt's right shoulder was only lifted to 90 degrees. Pt did not show any discomfort throughout ROM. L Motion All Joints: Passive range of motion L Position All Joints: Seated L Weight/Reps/Sets All Joints: 10 reps x 2. Pt tolerated all PROM exercises. Pt's right shoulder was only lifted to 90 degrees. Pt did not show any discomfort throughout ROM Treatment, Outcomes and Plan: OT Narrative:: Pt tolerated treatment well and was left with pelvic postioning belt over lower waist and upright in the chair. OT Treatment Outcomes:: Safety device reapplied and Patient tolerated treatment well OT Summary Plan of Care: Continue with current plan of care Pain Evaluation and Follow-up Response to Therapy Interventions: Improved activity tolerance, Improved positioning (06/05/19 1030) Pain Reassessment: 2 (06/05/19 1030) Nursing notified of patient's pain assessment: Not indicated - pain score 2 or less (06/05/19 1030) Therapy Minutes Individual Concurrent Co-Treat Time In : 1030 Time Out: 1115 Total Time with Patient (Min): 45 min PRATIBHA MUHAMMAD OT 06/05/2019 * Plan of Care - Saurabh Rodriges RN - 06/05/2019 9:58 AM CDT Problem: Infection Goal: Absence of [...] facility with appropriate resources Outcome: Progressing Goal: hooking machine operator will develop a plan to decrease their burden and enhance comfort in role Outcome: Progressing Problem: Pain Goal: Patient's pain/discomfort is manageable Outcome: Progressing Problem: Knowledge Deficit Goal: Patient/family/caregiver [...] Progressing * PT Treatment Note - Renae J Kamryn PT - 06/05/2019 8:11 AM CDT PT Treatment Patient Name: Ajit Tyler Patient Birthdate: 1960 Patient Subjective Report - Patient seated in tilt in space wc in room and agreeable to PT session. Pain Assessment Pain Context: Therapy Assessment Prior to Treatment (06/05/19811) Pain Assessment: NRS 0-10 (06/05/19811) Pain Score: 0 - No pain (06/05/19811) Vital Signs Pulse: 77 (06/05/19811) Heart Rate Source: Monitor (06/05/19811) BP: 114/53 (06/05/19811) MAP (mmHg): 73.33 (06/05/19811) BP Location: Right arm (06/05/19811) BP Method: Automatic (06/05/19811) Patient Position: Sitting (06/05/19811) Oxygen Context: Sitting (06/05/19811) SpO2: 93 % (06/05/19811) O2 Device: None (Room air) (06/05/19811) Transfer to 1: Stand Transfer from 1: Wheelchair Technique 1: Sit to stand and Stand to sit Transfer Level of Assistance 1: Total Assistance/Dependent Trials/Comments1: Max A x1 and min A x1 for sit to/from stand from wc and no UE support. Transfer to 2: Bed Transfer from 2: Wheelchair Technique 2: Mechanical lift Transfer Level of Assistance 2: Total Assistance/Dependent Trials/Comments 2: Dependent with estrella for wc to bed. Wheelchair Level of Assistance: Moderate Assistance Distance Traveled in Wheelchair (feet): 20 Wheelchair Type: Manual Surface: Indoor and Tile Propulsion Method: Bilateral lower extremity Wheelchair Propulsion Level of Assistance: Moderate Assistance Wheelchair Analysis: Mod A for force production for wheelchair propulsion with BLE. Performs 2 bouts of wc propulsion of 20 feet each during the session. Patient has increase slumped posture with thesecond performance and requires total assist for repositioning in the wc. Activity Type: Standing Activity Endurance: Poor Activity comment: Patient requires seated rest breaks following standing activities. Static Sitting Balance Support: Feet supported Static Sitting Level of Assistance: Maximal Assistance (Forward lean in wc away from backrest with max A to maintain the position. ) Static Standing Balance Support: No assistive device Static Standing Level of Assistance: Total Assistance/Dependent (Max x1 and min Ax1 for standing tolerance) Static Standing # of Mins/Comments: <5 mins (45 second bout with increase fatigue and flexion athips with cues throughout and patient able to correct x4, ) Therapeutic Activities and Neuromuscular Re-education: Performs sit to/from stand x2 bouts with increasing from 20 seconds to 45 seconds for second bout. Patient wore PAMELA Hose and abdominal binder with reports of dizziness on the first bout of stand and thus stopped. Patient did not have reports ofdizziness on second bout and reported fatigue with need to sit during the second bout. Patient states wow throughout second stand. When asked about it, patient reports it's just so much work to stand. Bowel accident during session and patient returned to bed for change of brief. Were respiratory Interventions provided?: No PT Treatment Outcomes:: Safety device reapplied, Cues needed for safety, Goals met for this session, Patient is progressing toward STG and Patient tolerated session poorly PT Summary:: Patient had bowel accident and was returned to bed by estrella lift. Nurse present in room with patient upon therapist leaving and was notified of bowel accident. PT Summary Plan of Care: Continue with current plan of care Pain Evaluation and Follow-up Response to Therapy Interventions: Improved activity tolerance, Improved mobility (06/05/19 09) Pain Reassessment: No pain (06/05/19899) Nursing notified of patient's pain assessment: Not indicated - pain score 2 or less (06/05/19899) Therapy Minutes Individual Concurrent Co-Treat Time In : 810 Time Out: 899 Total Time with Patient (Min): 49 min Missed Minutes : 19 JUNERENAE PT 06/05/2019 * Plan of Care - Myriam Sahu RN - 06/04/2019 11:28 PM CDT Problem: Infection Goal: Absence of [...] facility with appropriate resources Outcome: Progressing Goal: hooking machine operator will develop a plan to decrease their burden and enhance comfort in role Outcome: Progressing Problem: Pain Goal: Patient's pain/discomfort is manageable Outcome: Progressing * OT Treatment Note - Leobardo Valdez OT - 06/04/2019 1:39 PM CDT Occupational Therapy Treatment Patient Name: Ajit Tyler Patient Birthdate: 1960 Patient Subjective Report - Patient agreeable to occupational therapy. Pain Assessment Pain Context: Therapy Assessment Prior to Treatment (06/04/19 1302) Pain Assessment: NRS 0-10 (06/04/19 1302) Pain Score: 3 (06/04/19 1302) Pain Location: (bladder) (06/04/19 1302) Vital Signs Pulse: 69 (06/04/19 1302) Heart Rate Source: Monitor (06/04/19 1302) BP: (!) 160/91(ECOMMER[employer] MARKETING MANAGER Toma notified) (06/04/19 1302) MAP (mmHg): 114 (06/04/19 1302) BP Location: Left arm (06/04/19 1302) BP Method: Automatic (06/04/19 1302) Patient Position: Sitting (06/04/19 1302) Oxygen Context: Sitting (06/04/19 1302) SpO2: 98 % (06/04/19 1302) O2 Device: None (Room air) (06/04/19 1302) ADL Status: Toileting: Total Assistance/Dependent Toileting Where Assessed: Bed level Toilet Comments: Total assist x2 helper to complete toileting tasks (supine in bed) Bed, Chair, Wheelchair Transfer: Total Assistance/Dependent Bed/Chair Transfer to: Bed Bed/Chair Transfer from: Wheelchair and Sit Bed/Chair Transfer Technique: Mechanical lift (estrella) Bed/Chair Transfer Comments: Estrella lift used during OT secondary to increased BP, [employer] MARKETING MANAGER Toma and HIRAL Mann notified. : supine <> sidelying R/L. Bed Mobility Level of Assistance: Total Assistance/Dependent Bed Mobility Comment: Total assistance to complete bed mobility during toileting tasks. OT Therapeutic Activity: ROM: Gentle PROM x10 reps BUE: Shoulder flexion (to 90 degrees), shoulder abduction/adduction (to 90 degrees), shoulder internal/external rotation, elbow flexion/extension, forearm pronation/supination, wrist flexion/extension, digit flexion/extension (within pain free range, patient reported discomfort with digit flexion) Other: Patient educated on stress relief strategies of deep breathing and meditation to alleviate anxiety with new injury. Neuromuscular Re-education: Neuromuscular Re-education: Yes Modalities: Modalities: Yes RUE Electrical Stimulation Location: Wrist RUE Electrical Stimulation Action: Wrist extension RUE Electrical Stimulation Parameters: Pads applied to posterior forearm with micronesian waveform, cc,cycle time 10/10, 50 bps, 50% duty cycle, 5 second ramp for 6 minutes RUE Electrical Stimulation Goals: Neuromuscular facilitation LUE Electrical Stimulation Location: Wrist LUE Electrical Stimulation Action: Wrist extension LUE Electrical Stimulation Parameters: Pads applied to posterior forearm with micronesian waveform, cc,cycle time 10/10, 50 bps, 50% duty cycle, 5 second ramp for 6 minutes LUE Electrical Stimulation Goals: Neuromuscular facilitation Treatment, Outcomes and Plan: OT Narrative:: Patient remained supine with HOB elevated 45 degrees, bed alarm on, with switch positioned within reach of head control. OT Treatment Outcomes:: Patient tolerated treatment fairly OT Summary Plan of Care: Continue with current plan of care Vitals at end of session: BP 172/85 HR 72 SpO2: 98% Pain Evaluation and Follow-up Pain Reassessment: 4(HIRAL aMnn notified) (06/04/19 1430) Nursing notified of patient's pain assessment: Primary Nurse (06/04/19 1430) Therapy Minutes Individual Concurrent Co-Treat Time In : 1300 Time Out: 1433 Total Time with Patient (Min): 93 min Missed Minutes : 3 LEOBARDO VALDEZ, OT 06/04/2019 CHART CORRECTION: Type of Chart Edit: Addendum Reason for Correction: Additional information added Name: CASSI Obregon Date: 06/04/2019 Time: 15:36 * PT Treatment Note - Nelly Pringle, PT - 06/04/2019 1:20 PM CDT PT Treatment Patient Name: Ajit Tyler Patient Birthdate: 1960 Patient Subjective Report - Pt consents to therapy session. He denies current pain. Complains of dry mouth and difficulty breathing due to facial injuries and stuffed nose. He also complains of intermittent cramping in his hands and fingers. Pain Assessment Pain Context: Therapy Assessment Prior to Treatment (06/04/19814) Pain Assessment: NRS 0-10 (06/04/19814) Pain Score: 0 - No pain (06/04/19814) Pre-therapy pain intervention required: Patient expressed pain is tolerable/able to proceed (06/04/19814) Overall Cognitive Status: Within Functional Limits Bed Mobility: Rolling side to side and Short sit to - from supine Bed Mobility Level of Assistance: Maximal Assistance (+ min assist of another) Bed Mobility Comment: Pt completes supine to sit transfer in bed with max assist of one person to manage legs and produce force for transfer. Min assist required from another person to manage UEs andprovide more force to complete transfer. Transfer to 1: Wheelchair Transfer from 1: Bed Technique 1: Squat pivot Transfer Level of Assistance 1: Maximal Assistance (+ min assist of another) Trials/Comments1: Pt requires max assistance to complete squat pivot from bed to WC and min assist of another to manage UEs and assist in positioning. Transfer to 2: Stand Transfer from 2: Sit Technique 2: Stand to sit and Sit to stand Transfer Level of Assistance 2: Maximal Assistance Trials/Comments 2: Pt completes ~3 partial stands with max assist throughout session in order to assume appropriate positioning. Pt able to bear weight through LEs in order to clear buttock with assist to maintain foot position. Improved with verbal cues to maintain forward lean. Seated Position: In WC, pt is assisted to upright sitting position and challenged to maintain position without leaning back in chair. Pt requires consistentent mod assistance to achieve and maintain position. Repeated 6 x 2. Mat Position: AAROM completed for first 10-15 minutes of session, supine in bed. UE: mild passive wrist extension, forearm supination, elbow extension and shoulder flexion 10 x 2 each UE. LE: AAROM ankle pumps, ankle dorsi flexion/gastroc stretch, knee flexion heel slides, bent knee fall in/out 10 x 2 each LE. Activity Type: Sitting Activity Endurance: Poor Compromised ability to maintain sitting: Yes Activity comment: Pt requires mod-max assist to maintain sitting at EOB for ~4 minutes Static Standing Balance Support: No upper extremity supported Static Standing Level of Assistance: Maximal Assistance Static Standing # of Mins/Comments: <5 mins Therapeutic Activities and Neuromuscular Re-education: Educated pt on appropriate wheel chair positioning and pressure relieving through position changes and tilt in space WC system. Encouraged pt tobegin taking ownership of pressure relief protocol and often advocate for position changes or tilting. Educated pt on appropriate breathing techniques with cues for slowing down breathing when anxiety high or physical effort is put forth. Time spent adjusting foot rests to appropriate length. PT Treatment Outcomes:: Patient is progressing toward STG and Patient tolerated session fair PT Summary:: Pt tolerated session fairly, requiring consistent rest breaks and cues for breathing techniques due to difficulty breathing through his nose. As anxiety or effort increases, complaints of SOB get worse but recovers well with cues and drinks of water. Session focused on functional transfer into chair, LE weightbearing in sitting positions, LE/UE ROM, wheel chair positioning, and core strengthening. He continues to require maximum assistance+ for all transfers and bed mobility. He will continue to benefit from skilled physical therapy while inpatient to address strength, endurance,and functional mobility deficits. PT Summary Plan of Care: Continue with current plan of care Pain Evaluation and Follow-up Pain Reassessment: No pain (06/04/19 0845) Nursing notified of patient's pain assessment: Not indicated - pain score 2 or less (06/04/19 0845) Therapy Minutes Individual Concurrent Co-Treat Time In : 0815 Time Out: 45 Total Time with Patient (Min): 90 min Missed Minutes : 0 NELLY PRINGLE, PT 06/04/2019 * Plan of Care - Oswaldo Beauchamp RN - 06/04/2019 1:17 AM CDT Problem: Infection Goal: Absence of [...] facility with appropriate resources Outcome: Progressing Goal: hooking machine operator will develop a plan to decrease their burden and enhance comfort in role Outcome: Progressing Problem: Pain Goal: Patient's pain/discomfort is manageable Outcome: Progressing Problem: Knowledge Deficit Goal: Patient/family/caregiver [...] of Care - Susana Addison RD - 06/03/2019 3:07 PM CDT Problem: Inadequate or Predicted Suboptimal Energy or Oral Intake Description Related to: poor appetite, increased needs for wound healing, weight loss and feeding difficulty As Evidenced By: 25% po intake, spinal injury resulting in inability to feed himself, and reported 27# weight loss Goal: Clinical Nutrition Goal Outcome: Progressing Flowsheets (Taken 06/03/2019 1504) Primary Goal: Adequate Meals and Snack/Oral Nutrition Supplement Intake Primary Goal Progress: New Primary Indicator/Monitor: po intake 50-100% Secondary Goal: Weight Maintenance Secondary Goal Progress: New Secondary Indicator/Monitor: avoid weight loss; weight gain is preferred Intervention: Medical Nutrition Therapy Interventions Flowsheets (Taken 06/03/2019 1504) Meals and Snacks: General/healthful diet Supplements: Commercial beverage/Oral Nutrition Supplement Coordination of Nutrition Care: Continue to Monitor * OT Treatment Note - Rosemary Murphy, OT - 06/03/2019 1:47 PM CDT Occupational Therapy Treatment Patient Name: Ajit Tyler Patient Birthdate: 1960 Patient Subjective Report - My back is hurting pt. Agreeable to therapy this date with transitionto bed to decrease pain. Pain Assessment Pain Context: Therapy Assessment Prior to Treatment (06/03/19 134) Pain Assessment: NRS 0-10 (06/03/191346) Pain Score: 7 - Severe Pain (06/03/19 134) Pain Type: Acute pain (06/03/19 134) Pain Location: Back (06/03/191346) Pain Orientation: Lower (06/03/191346) Pain Interventions Education Provided: Patient (06/03/19 144) Non-Pharmacologic Pain Interventions: Distractions, Position/Reposition, Rest, Exercise/Activity (06/03/19 144) Emotional/Spiritual Pain Interventions: Emotional Support (06/03/19 144) ADL Status: Toilet Comments: Pt. requests bladder scan this date due to reported pressure. RN present at end ofsession to complete. Pt. provided initial education regarding bowel and bladder functional related to SCI- pt. verbalizes understanding. Further education recommended. Lower Body Dressing Comments: Pt. requires total assist to doff shoes from BLE with transition to supine in bed. Pt. unable to assist due to impaired BUE functional use and limited functional reach secondary to spinal precautions. Bed, Chair, Wheelchair Transfer: Total Assistance/Dependent Bed/Chair Transfer to: Bed Bed/Chair Transfer from: Wheelchair Bed/Chair Transfer Technique: Squat pivot Assistive Devices Used: No device Bed/Chair Transfer Comments: To R to level surface. Pt. requires tactile cues to achieve forward trunk flexion for improved force production. Pt. demos improved BLE strength with improved force production for ability to assist for transfer. Pt. requires max assist of 1 and min assist for second forincreased safety due to extensor tone. Bed Mobility: Performed on bed Bed Mobility Level of Assistance: Total Assistance/Dependent Bed Mobility Comment: Pt. Requires total assist for transition from short sit EOB to supine- assistof 1 to manage BLE to bed and assist of 2nd to manage trunk. OT Therapeutic Activity: Patient Education: Spinal Cord Education Needs The following education regarding spinal cord functional and injury is provided this date: Spinal cord function Anatomy Spinal levels and nerve innervation/muscle control Complete vs. Incomplete VERN levels Were the patients educational needs met? yes Patient will require further education. Continued education needs for enhanced understanding. Does Ajit Tyler have any specific questions for His physician or rehab team??? If so, please list them here: N/A Patient did not decline SCI education on this date. Spinal cord function and injury education material given to patient /family for review. yes Other: Multi-Podus boots donned bed level for prevention of pressure injury to bilateral heels. Pillows utilized for optimal UE positioning bed level for improved joint integrity and prevention of contractures. Treatment, Outcomes and Plan: OT Narrative:: Pt. Receptive to SCI education this date and demonstrates understanding following education. Pt. Demos improved force production through BLE for improved participation in functional transfer. Pt. Would benefit from continued participation in intensive OT rehabilitation services in order to address sitting balance, pain management, functional strength and endurance, and BUE coordination, strength, and ROM for increased independence with ADLs and functional transfers. Pt. Supine in bed with ECU positioned at mouth for use of call-light. OT Treatment Outcomes:: Patient tolerated treatment well, Patient is progressing toward STG(s) and Goals met for this session OT Summary Plan of Care: Continue with current plan of care Pain Evaluation and Follow-up Pain Reassessment: 4 (06/03/19 1440) Nursing notified of patient's pain assessment: Primary Nurse (06/03/19 1440) Therapy Minutes Individual Concurrent Co-Treat Time In : 1347 Time Out: 1440 Breaks/Pauses (Min): 0 mins Total Time with Patient (Min): 53 min Missed Minutes : 8 ROSEMARY MURPHY OT 06/03/2019 * OT Treatment Note - Rosemary Murphy OT - 06/03/2019 11:20 AM CDT Occupational Therapy Treatment Patient Name: Ajit Tyler Patient Birthdate: 1960 Patient Subjective Report - Pt. Agreeable to therapy this date. I think I feel my hand moving Pain Assessment Pain Context: Therapy Assessment Prior to Treatment (06/03/191119) Pain Assessment: None/denies pain (06/03/191119) OT Therapeutic Activity: ROM: Pt. Seated in w/- participates in PROM of bilateral UE at shoulder, elbow, wrist, forearm, anddigits to address ROM and joint integrity in preparation for future functional use and for prevention of contracture. Pt. Educated on purpose of participation and reports understanding. Pt. Demos good PROM with ability to achieve full range at bilateral elbow and forearm. Due to reported shoulder is suse, PROM limited to 90 degrees of flexion and abduction at bilateral shoulder with ability to achieve full desired range with no tone noted. Pt. Demos decreased bilateral wrist extension and tolerates prolonged low load stretch to improve ROM. Patient Education: Pt. Provided education regarding neuromuscular re-education following SCI- pt. Verbalizes understanding. Other: Following participation in electrical stimulation and at cease of session, pt. Inquires to OT regarding sensation of R hand moving. Support provided at R forearm, pt. Demos minimal active wrist extension against gravity. Pt. Demonstrates active opposition of 1st digit. Pt. demoing neurological return and increased strength of RUE this date. Neuromuscular Re-education: Neuromuscular Re-education: Yes Comments: See moadlities . Pt. Demonstrates good tolerance with no skin irritation noted followingremoval of stimulator pads. With participation, pt. Provided verbal directive to actively contract muscle to achieve bicep flexion with application of stimulation to improve strength. Pt. Demos muscle fatigue with participation, however demos improved bilatreal bicep strength this date with abilityto achieve. With last 1 minute of stimulation, light resistance applied to forearm against bicep flexion to encourage strengthening. Following participation, pt. Continues to demo trace bicep flexion. No active tricep contraction noted this date following participation. Modalities: Modalities: Yes RUE Electrical Stimulation Location: Upper arm RUE Electrical Stimulation Action: Elbow flexion- bicep; elbow extension- tricep RUE Electrical Stimulation Parameters: For elbow flexion first duration of 10 minutes, elbow extension second duration of 8 minutes: 10/10 cycle time with 5 second ramp, 50 % duty cycle, 50 bps- Scottish stimulation. 49 mA CC applied to R bicep to facilitate flexion; 30 mA CC applied to tricep to facilitate extension. RUE Electrical Stimulation Goals: Strength and Neuromuscular facilitation LUE Electrical Stimulation Location: Upper arm LUE Electrical Stimulation Action: Elbow flexion- bicep; elbow extension- tricep LUE Electrical Stimulation Parameters: For elbow flexion first duration of 10 minutes, elbow extension second duration of 8 minutes: 10/10 cycle time with 5 second ramp, 50 % duty cycle, 50 bps- Scottish stimulation. 47 mA CC applied to R bicep to facilitate flexion; 36 mA CC applied to tricep to facilitate extension. LUE Electrical Stimulation Goals: Strength and Neuromuscular facilitation Treatment, Outcomes and Plan: OT Narrative:: Pt. Demonstrates improved strength of RUE this date, demoing active wrist extension following participation in neuromuscular re-education. Pt. Demonstrates good understanding of education regarding neuromuscular re- education. Pt. Would benefit from continued participation in intensive OT rehabilitation services in order to address BUE coordination, strength, and ROM, sitting balance, pain management, functional strength, and endurance limiting safe and independent participation in ADLs and functional transfers. Pt. Seated in w/c with pelvic positioning belt and ECU at mouth for call light use. OT Treatment Outcomes:: Safety device reapplied, Patient tolerated treatment well, Patient is progressing toward STG(s), Goals met for this session and Increased strength or muscular endurance (comment on location) OT Summary Plan of Care: Continue with current plan of care Pain Evaluation and Follow-up Pain Reassessment: No pain (06/03/19 1207) Nursing notified of patient's pain assessment: Not indicated - pain score 2 or less (06/03/19 1207) Therapy Minutes Individual Concurrent Co-Treat Time In : 1120 Time Out: 1207 Breaks/Pauses (Min): 0 mins Total Time with Patient (Min): 47 min Missed Minutes : 2 ROSEMARY MURPHY OT 06/03/2019 * PT Treatment Note - Yesi Kellogg, PT - 06/03/2019 7:45 AM CDT PT Treatment Patient Name: Ajit Tyler Patient Birthdate: 1960 Patient Subjective Report - Pt agreeable to participation in therapy session. Pain Assessment Pain Context: Therapy Assessment Prior to Treatment (06/03/19744) Pain Assessment: NRS 0-10 (06/03/19744) Pain Score: 3 (06/03/19744) Pain Type: Acute pain (06/03/19744) Pain Location: Shoulder, Neck (06/03/19744) Pain Orientation: Right, Left, Posterior (06/03/19744) Pain Descriptors: Aching (06/03/19744) Pain Onset: Ongoing (06/03/19744) Pain Frequency: Constant/continuous (06/03/19744) Aggravating Factors: Activity Duration, Positioning (06/03/19744) Functional Impact: Turning, Walking, Sleep (06/03/19744) Pre-therapy pain intervention required: Nurse notified, Nursing medicated patient - see MAR (06/03/19744) Vital Signs Pulse: 75 (06/03/19744) Heart Rate Source: Monitor (06/03/19744) BP: 122/68 (06/03/19744) MAP (mmHg): 86 (06/03/19744) BP Location: Left arm (06/03/19744) BP Method: Automatic (06/03/19744) Patient Position: Sitting (06/03/19744) Oxygen Context: Resting (06/03/19744) SpO2: 96 % (06/03/19744) O2 Device: None (Room air) (06/03/19744) Surface: Even surface and Indoor Assistive Device: No Device Ambulation Level of Assistance: Total Assistance/Dependent Distance (feet): 1 Gait Analysis: Ambulates in 2 separate bouts- initially 2 steps and then 3 steps with w/c follow due to knee buckle. Requires assist x 2 B for placement of LE due to scissoring gait and for blocking B knee due to buckling and weakness. Pt additionally limited by increased symptoms of dizziness in standing, however BP not orthostatic. B pamela hose donned on first bout, and apply abdominal binder on second bout to aide in BP management. Gait deviations include decreased B knee ext in stance phase, retropulsion, narrow SOPHY/scissoring gait pattern. Pt is able to respond to crouching/flexed fwd posture with cues for glut and quad recruitment. Transfer to 1: Stand Transfer from 1: Sit Technique 1: Sit to stand Transfer Level of Assistance 1: Total Assistance/Dependent and Maximal Assistance Trials/Comments1: Requires max A x1 for force production and CGA of another of safety due to increased retropulsion at trunk upon standing Wheelchair Level of Assistance: Moderate Assistance Distance Traveled in Wheelchair (feet): 22 Wheelchair size: 22 Wheelchair Type: Manual tilt in space Wheelchair cushion: Standard Surface: Even surface and Indoor Propulsion Method: Bilateral lower extremity Wheelchair Propulsion Level of Assistance: Moderate Assistance Wheelchair Analysis: Propels 22 feet in two separate bouts (4 min rest break in between) using BLE only for force production. Requires mod A posteriorly behind chair prior to each fwd excursion to prevent chair moving backwards when pt is extending B knees to advance fwd due to decreased B hip flexor strength. Increased fatigue in LEs noted at completion. Activity Type: Standing Activity Endurance: Poor Compromised ability to maintain sitting: Yes Activity comment: Limited tolerance to standing and upright due to pt c/o lightheadedness and LE fatigue/weakness. Lightheadedness subsides at rest. Vitals as follows with B tedhose and abd binder donned: At rest: 122/68 HR 75 O2 96% on RA Post-ambulation: 147/80 HR 78 O2 95% Therapeutic Activities and Neuromuscular Re-education: THER EX: performs the following BLE strengthening exercises in sitting for carryover to improved muscle activation, proprioception, and muscle strength needed for ambulation and functional transfers (reduced ROM): marches x 8 reps, knee ext x 10 reps, knee flex x 8 reps with towel under foot to reduce friction, hip abd/add x 8 reps with towelunder foot, ankle pumps x 10 reps, hip add with pillow squeeze x 3 sec x 10 reps. Spinal Cord Education Needs The following education regarding spinal cord functional and injury is provided this date: Spinal cord function Anatomy Spinal levels and nerve innervation/muscle control Complete vs. Incomplete VERN levels Were the patients educational needs met? yes Patient will not require further education. PT Treatment Outcomes:: Cues needed for safety, Gait deviations reduced, Goals met for this session, Improved ambulation performance, Improving overall functional endurance noted, Patient is progressing toward STG, Qualitative gains in function and Patient tolerated session fair PT Summary:: Session focus on ambulation, wheelchair propulsion, STS transfers, and LE strengthening/HEP. Pt able to take 2-3 steps at a time prior to knee buckling and returning to sitting due to inability to maintain standing and LE weakness. Demonstrates improved force production and initiation of STS transfers with less assist needed posteriorly to keep trunk from extending during transition to stand. Increased rest breaks required in between all standing and LE strengthening tasks due to quick fatigue, however shows improved tolerance to activity from previous dates. Plan to continue with LE strengthening and proprioceptive input to improve independence with transfers and ambulation. Pa sammient remained up sitting in chair at end of session with pelvic positioning belt on, chair alarm in place, sip and puff call light in place. 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 Past Medical History: History reviewed. No pertinent past medical history. Past Medical History Reviewed: I have reviewed the patient's past medical history. ABG: No results found for: PHART, [id number], PO2ART, QSE5RUL, BEART, [id number] Most Recent ABG Reviewed: Not available Active Medications Reviewed: I have reviewed the patient's active medications. Most Recent CXR Reviewed: Not available RT Initial Assessment Row Name 06/02/192047 Physical Assessment Most Recent CXR CXR not available Chest Excursion L equal to R Breathing Pattern Eupnea RR 18 $ Respiratory Assessment Complete RT Airway Assessment and Plan of Care Row Name 06/02/192047 Airway Assessment Airway Assessment to Determine High Risk None RT Plan of Care Row Name 06/02/192047 Respiratory Plan of Care $ O2 Device None (Room air) Home O2, Prior to Admission No Therapy Recommendations Inhalation Therapy;Volume Expansion Therapy Inhalation Therapy Nebulizer Treatments Short Term Goals Wean Per Protocol Ordinary Seaman Goals Return to Previous Home DME Requirements;Return to Previous Home Medication Regimen [place] CAL[place], 06/02/19 10:56 PM * Plan of Care - Briana Duong RN - 06/02/2019 3:15 PM CDT Problem: Infection Goal: Absence of [...] facility with appropriate resources Outcome: Progressing 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 Pain Assessment Pain Context: Therapy Assessment Prior to Treatment (06/02/191308) Pain Assessment: NRS 0-10 (06/02/191308) Pain Score: 7 - Severe Pain (06/02/191308) Pain Type: Acute pain (06/02/191308) Pain Location: Neck, Shoulder (06/02/191308) Pain Orientation: Right, Left, Posterior (06/02/191308) Pain Descriptors: Aching, Discomfort (06/02/191308) Pain Onset: Ongoing (06/02/191308) Pain Frequency: Constant/continuous (06/02/191308) Aggravating Factors: Activity Duration, Positioning (06/02/191308) Functional Impact: Turning, Sleep (06/02/191308) Pre-therapy pain intervention required: Patient expressed pain is tolerable/able to proceed (06/02/191308) Pain Interventions Education Provided: Patient (06/02/191308) Non-Pharmacologic Pain Interventions: Distractions, Exercise/Activity, Position/Reposition, Rest (06/02/191308) Emotional/Spiritual Pain Interventions: Emotional Support (06/02/191308) Vital Signs Pulse: 68 (06/02/19 130) Heart Rate Source: Monitor (06/02/191308) BP: 134/72 (06/02/19 130) MAP (mmHg): 92.67 (06/02/191308) BP Location: Right arm (06/02/191308) BP Method: Automatic (06/02/191308) Patient Position: Lying (06/02/191308) Oxygen Context: Resting (06/02/191308) SpO2: 98 % (06/02/191308) O2 Device: None (Room air) (06/02/191308) Bed Mobility: Performed on bed, Short sit to - from supine and Rolling side to side Bed Mobility Level of Assistance: Maximal Assistance and Total Assistance/Dependent Bed Mobility Comment: Supine to sitting: pt rolls to L side with max A x [address] RLE into hip/knee flex to facilitate roll to L side and max A at trunk and UE. Pt able to manage BLE off EOB in sidelying with increased time and ataxic movements, requiring maximal assist at trunk to reachsitting EOB Sitting to supine: attempt pt to manage RLE onto bed, however unable due to fatigue and weakness. Requires total A for management of trunk and BLE to reach supine. Transfer to 1: Stand Transfer from 1: Sit Technique 1: Sit to stand Transfer Level of Assistance 1: Maximal Assistance, Total Assistance/Dependent and Moderate Assistance Trials/Comments1: Requires max A-emerging mod A for force production to reach standing using BLE and additional CGA-min A of another posteriorly to prevent trunk extension Transfer to 2: Wheelchair Transfer from 2: Bed Technique 2: Squat pivot Transfer Level of Assistance 2: Total Assistance/Dependent Trials/Comments 2: Attempt standing at edge of bed initially, however pt maximally extending trunk upon attempting pushing with BLE. Requires max A x 2 for squat pivot transfer to w/c Transfer to 3: Mat Transfer from 3: Wheelchair Technique 3: Stand pivot Transfer Level of Assistance 3: Total Assistance/Dependent, Maximal Assistance and Moderate Assistance Trials/Comments 3: Perform SPT x 3 during session- to/from mat table and w/c x 2 and to bed from w/c and requires initial mod A for assisting with weight shifting to initiate stepping with LEs, however on first attempt demonstrates L knee buckle after taking first 2 steps and requires total A x 2 to safely sit on mat surface during transfer. Upon final 2 transfers pt is able to take 2-3 steps during transfer with mod-max A of therapist and CGA of another, increasing assist required with fatiguenearing end of session Wheelchair Level of Assistance: Maximal Assistance Distance Traveled in Wheelchair (feet): 12 Wheelchair size: 22 Wheelchair Type: Manual tilt in space Wheelchair cushion: Pressure relieving Surface: Even surface and Indoor Propulsion Method: Bilateral lower extremity Wheelchair Propulsion Level of Assistance: Maximal Assistance Wheelchair Analysis: Initiate w/c propulsion with BLE (don B boots to aide in traction) and requires max A- emerging mod A for continued fwd momentum and cues for sequencing and stepping with BLE. Cues to use vision to compensate for poor proprioception and ability to feel position of LEs. Activity Type: Sitting Activity Endurance: Poor Compromised ability to maintain sitting: Yes Activity comment: Decreased tolerance to upright and sitting due to fatigue and pain in posterior cervical muscles- tolerating ~1 min at a time prior to return to semi supine to support neck. BP initially 128/73 HR 69 O2 94% on RA when sitting upright in wheelchair, no c/o dizziness and tedhose donned Reclined post on wedge after sitting upright at EOM: 143/80 HR 67 O2 92% Sitting upright at EOM with c/o dizziness: 139/77 Static Sitting Balance Support: Bilateral upper extremity supported and Feet supported Static Sitting Level of Assistance: Maximal Assistance, Moderate Assistance and Minimal Assistance Static Sitting # of Mins/Comments: < 5 mins Static Standing Balance Support: No assistive device and No upper extremity supported Static Standing Level of Assistance: Moderate Assistance, Maximal Assistance and Total Assistance/Dependent Static Standing # of Mins/Comments: <5 mins Therapeutic Activities and Neuromuscular Re-education: NEURO RE-ED: STANDING- maintains standing x 30 sec without UE support and mod-max A x 1 therapist with additional min A of therapist posteriorlyat trunk to prevent retropulsion and trunk extension. Pt requires sitting after 30 sec due to generalized fatigue and fatigue in post cervical muscles. SITTING- performs sitting in 2 separate bouts at EOM x 1 min each prior to return to semi-supine (wedge and 2 pillows behind trunk) due to fatigue in posterior cervical muscles. Pt able to maintain with CGA x 2-3 sec at a time once setup and center of mass balanced over base of support. Pt is able to respond to cues to guide trunk fwd with neck/cervical muscles and leans posteriorly when leaning too far fwd, however continues to require max-total A to prevent LOB when moving too far in one direction. On second bout of sitting upright- place dysom under B hands to prevent sliding and improve WB to balance statically. Were respiratory Interventions provided?: No Special Test and Outcome Measures: Function in Sitting Test (FIST) indicating high fall risk PT Treatment Outcomes:: Cues needed for safety, Goals met for this session, Improved transfer ability noted, Improving overall functional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 dose (after last modification) on Thu06/01/19 at 1800, Until Discontinued, Allow for 45-60 minutes for bowel movement, digital stimulation as needed until finished. Administer regardless if BM earlier in the day as this is part of patient's neurogenic bowel regimen for spinal cord injury. Given 06/05/2019 6:39 PM CDT 10 mg Given 06/04/2019 6:37 PM CDT 10 mg Given 06/03/2019 6:44 PM CDT 10 mg calcium carbonate (TUMS) chewable tablet 500 mg 500 mg, Oral, 2 times daily (2 times per day), First dose on Thu05/31/19 at 2100, Until Discontinued Given 05/31/2019 8:14 PM CDT 500 mg calcium carbonate (TUMS) chewable tablet 500 mg 500 mg, Oral, 2 times daily with meals, First dose (after last modification) on Thu06/01/19 at 0800, Until Discontinued Given 06/05/2019 4:29 PM CDT 500 mg Given 06/05/2019 8:54 AM CDT 500 mg Given 06/04/2019 8:25 AM CDT 500 mg ciprofloxacin (CIPRO) tablet 500 mg 500 mg, Oral, 2 times daily (2 times per day), 14 doses, First dose on Thu05/31/19 at 2100, Last dose on Thu06/07/19 at 0900, No food, tube feeding or drink except water should be given 1 hour before or 1 hour after administration., Reason for Therapy: Bacterial Infection Suspected, Type of Therapy: Continued from [employer], Indication: Other, Specify: brand leader Given 05/31/2019 8:14 PM CDT 500 mg ciprofloxacin (CIPRO) tablet 500 mg 500 mg, Oral, 2 times daily (2 times per day), 2 doses, First dose (after last modification) on Thu06/01/19 at 0900, Last dose on Thu06/01/19 at 2100, No food, tube feeding or drink except water should be given 1 hour before or 1 hour after administration., Reason for Therapy: Bacterial Infection Suspected, Type of Therapy: Continued from [employer], Indication: Other, Specify: brand leader Given 06/01/2019 8:23 PM CDT 500 mg Given 06/01/2019 8:19 AM CDT 500 mg diphenhydrAMINE (BENADRYL) tablet 25 mg 25 mg, Oral, Nightly PRN, Starting on Thu06/03/19 at 1118, Until Thu06/06/19 at 2241, insomnia/dyssomnia/sleep, Ok to take with/following melatonin if melatonin alone not effective enough Given 06/04/2019 9:57 PM CDT 25 mg docusate sodium (COLACE) capsule 100 mg 100 mg, Oral, Daily, First dose on Thu06/01/19 at 0900, Until Discontinued, Swallow whole. Do not crush, open, chew, or split capsule. Swallow whole. Do not crush, open, chew, or split capsule. Given 06/06/2019 9:35 AM CDT 100 mg Given 06/05/2019 8:54 AM CDT 100 mg Given 06/04/2019 9:25 AM CDT 100 mg fluticasone (FLONASE) 50 MCG/ACT nasal solution 50 mcg 50 mcg (1 spray), Each Nostril, Nightly, First dose on Thu06/03/19 at 2100, Until Discontinued Given 06/05/2019 10:12 PM CDT 50 mcg Given 06/04/2019 9:57 PM CDT 50 mcg Given 06/04/2019 12:08 AM CDT 50 mcg heparin (porcine) injection 5,000 Units 5,000 Units, Subcutaneous, Every 8 hours, First dose on Thu05/31/19 at 2200, Until Discontinued, HIGH RISK MEDICATION Given 06/06/2019 1:46 PM CDT 5,000 Units Abdominal Tissue Given 06/06/2019 6:07 AM CDT 5,000 Units A bdominal Tissue Given 06/05/2019 10:12 PM CDT 5,000 Units Abdominal Tissue ipratropium-albuterol (DUO-NEB) 0.5-2.5 mg/3 mL nebulizer solution 3 mL 3 mL, Inhalation, RT 2 times daily, First dose (after last modification) on Thu06/02/19 at 2000, Until Discontinued Given 06/02/2019 8:48 PM CDT 3 mL ipratropium-albuterol (DUO-NEB) 0.5-2.5 mg/3 mL nebulizer solution 3 mL 3 mL, Inhalation, RT 2 times daily, First dose (after last modification) on Thu06/03/19 at 2000, Until Discontinued Given 06/05/2019 8:49 PM CDT 3 mL Given 06/05/2019 5:51 AM CDT 3 mL Given 06/04/2019 8:29 PM CDT 3 mL lidocaine (LIDOCARE) 4 % patch 1 patch 1 patch, Transdermal, Administer over 12 Hours, Daily, First dose on Thu06/02/19 at 0900, Until Discontinued, Apply 1/2 patch to each side of surgical incision (but not on incision) of posterior neck . May cut patches if needed. Remove patch after 12 hours. Medication Applied 06/06/2019 9:35 AM CDT 1 patch Other Medication Applied 06/03/2019 9:25 AM CDT 1 patch Other Medication Applied 06/02/2019 8:10 AM CDT 1 patch Other melatonin tablet 6 mg 6 mg, Oral, Nightly, First dose on Thu06/03/19 at 2100, Until Discontinued Given 06/05/2019 10:12 PM CDT 6 mg Given 06/04/2019 9:57 PM CDT 6 mg Given 06/04/2019 12:05 AM CDT 6 mg montelukast (SINGULAIR) tablet 10 mg 10 mg, Oral, Daily, First dose on Thu06/01/19 at 0900, Until Discontinued Given 06/06/2019 9:35 AM CDT 10 mg Given 06/05/2019 8:53 AM CDT 10 mg Given 06/04/2019 9:26 AM CDT 10 mg muscle rub (ICY HOT) 10-15 % cream Topical, 2 times daily (2 times per day), First dose on Thu06/02/19 at 0900, Until Discontinued, Apply to left shoulder Given 06/06/2019 9:35 AM CDT Given 06/05/2019 2:38 PM CDT Given 06/05/2019 8:56 AM CDT ondansetron ODT (ZOFRAN-ODT) disintegrating tablet 4 mg 4 mg, Oral, Every 8 hours PRN, Starting on Thu06/01/19 at 0912, Until Thu06/06/19 at 2241, nausea, vomiting Given 06/01/2019 9:46 AM CDT 4 mg oxyCODONE (ROXICODONE) 5 MG immediate release tablet - ADS Override Pull 1 dose, Starting on Thu05/31/19 at 2009, Until Thu06/01/19 at 0824, FELISHA EDDY: cabinet override Given 06/01/2019 8:24 AM CDT 5 mg oxyCODONE (ROXICODONE) immediate release tablet 10 mg 10 mg, Oral, Nightly, 14 doses, First dose on Thu06/03/19 at 2100, Last dose on Thu06/16/19 at 2100 Given 06/04/2019 12:05 AM CDT 10 mg oxyCODONE (ROXICODONE) immediate release tablet 5 mg 5 mg, Oral, Every 4 hours PRN, Starting on Thu05/31/19 at 195, Until Thu06/06/19 at 2241, severe pain, Do not give within 4 hours of scheduled nightly oxycodone 10 mg dose Given 06/02/2019 11:06 PM CDT 5 mg Given 06/01/2019 1:05 AM CDT 5 mg Given 05/31/2019 8:15 PM CDT 5 mg phenol 1.4 % 0.05 mL 0.05 mL (1 spray), Mouth/Throat, Every 2 hour PRN, Starting on Thu05/31/19 at 1958, Until Thu06/06/19 at 2241, sore throat Given 06/03/2019 11:54 AM CDT 0.05 mL Given 06/02/2019 8:23 AM CDT 0.05 mL polyethylene glycol (MIRALAX) packet 17 g 17 g, Oral, Daily, First dose on Thu06/01/19 at 0900, Until Discontinued, Dilute/Mix with 4-8 oz fluid for administration. Given 06/06/2019 9:35 AM CDT 17 g Given 06/05/2019 8:54 AM CDT 17 g Given 06/04/2019 9:24 AM CDT 17 g potassium chloride (K-DUR,KLOR-CON) CR tablet 40 mEq 40 mEq, Oral, 2 times daily (2 times per day), 2 doses, First dose on Thu06/06/19 at 0900, Last dose on Thu06/06/19 at 2100, DO NOT CRUSH, CUT, OR CHEW. Given 06/06/2019 9:35 AM CDT 40 mEq sodium chloride (OCEAN) 0.65 % nasal spray 1 spray 1 spray, Each Nostril, 2 times daily (2 times per day), First dose on Thu06/02/19 at 2100, Until Discontinued Given 06/06/2019 9:35 AM CDT 1 spray Given 06/05/2019 10:12 PM CDT 1 spray Given 06/05/2019 8:56 AM CDT 1 spray thiamine tablet 100 mg 100 mg, Oral, Daily, First dose on Thu06/02/19 at 0900, Until Discontinued Given 06/06/2019 9:35 AM CDT 100 mg Given 06/05/2019 8:55 AM CDT 100 mg Given 06/04/2019 9:27 AM CDT 100 mg documented in this encounter Active and Recently Administered Medications Times are shown in CDT. Scheduled Medication Order 06/04/2019 06/05/2019 06/06/2019 acetaminophen (TYLENOL) tablet 1,000 mg 1,000 mg, Oral, Every 8 hours, First dose on Thu05/31/19 at 2200, Until Discontinued 0005 (Given - Provider: Oswaldo Beauchamp RN)0625 (Given - Provider: Oswaldo Beauchamp RN)1517 (Given - Provider: Mackenzie Mcgraw)2157 (Given - Provider: Myriam Sahu RN) 0626 (Given - Provider: Myriam Sahu RN)1439 (Given - Provider: Saurabh Rodriges RN)2212 (Given - Provider: Myriam Sahu RN) 0607 (Given - Provider: Myriam Sahu RN)1346 (Given - Provider: Corinna Galeas, HIRAL)2200 (Canceled Entry - Provider: Automatic Discharge Provider - Comment: Automatically canceled at discontinue of medication order) albuterol (PROVENTIL HFA;VENTOLIN HFA) 108 MCG/ACT inhaler 2 puff 2 puff, Inhalation, RT 3 times daily, First dose on Thu06/06/19 at 1400, Until Discontinued, Hazardous waste (aerosol) Dispose of container and any unused medication appropriately 1400 (Canceled Entry - Provider: Automatic Discharge Provider - Comment: Automatically canceled at discontinue of medication order)2000 (Canceled Entry - Provider: Automatic Discharge Provider - Comment: Automatically canceled at discontinue of medication order) Baclofen (LIORESAL) tablet 5 mg 5 mg, Oral, 3 times daily (3 times per day), First dose on Thu06/03/19 at 1500, Until Discontinued 0005 (Given - Provider: Oswaldo Beauchamp RN)0926 (Given - Provider: Maria De Jesus Brito RN)1517 (Given - Provider: Mackenzie Mcgraw)2157 (Given - Provider: Myriam Sahu RN) 0853 (Given - Provider: Saurabh Rodriges RN)1440 (Given - Provider: Saurabh Rodriges RN)2212 (Given - Provider: Myriam Sahu RN) 0935 (Given - Provider: Corinna Galeas, HIRAL)1500 (Canceled Entry - Provider: Automatic Discharge Provider - Comment: Automatically canceled at discontinue of medication order)2100 (Canceled Entry - Provider: Automatic Discharge Provider - Comment: Automatically canceled at discontinue of medication order) bisacodyl (DULCOLAX) suppository 10 mg 10 mg, Rectal, Daily, First dose (after last modification) on Thu06/01/19 at 1800, Until Discontinued, Allow for 45-60 minutes for bowel movement, digital stimulation as needed until finished. Administer regardless if BM earlier in the day as this is part of patient's neurogenic bowel regimen for spinal cord injury. 1837 (Given - Provider: Mackenzie Mcgraw) 1839 (Given - Provider: Saurabh Rodrigse RN) 1800 (Canceled Entry - Provider: Automatic Discharge Provider - Comment: Automatically canceled at discontinue of medication order) calcium carbonate (TUMS) chewable tablet 500 mg 500 mg, Oral, 2 times daily with meals, First dose (after last modification) on Thu06/01/19 at 0800, Until Discontinued 0825 (Given - Provider: Maria De Jesus Brito RN)1648 (Not Given - Provider: Mackenzie Mcgraw - Reason: Patient/family refused) 0854 (Given - Provider: Saurabh Rodriges RN)1629 (Given - Provider: Saurabh Rodriges RN) 0935 (Not Given - Provider: Corinna Galeas RN - Reason: Patient/family refused)1700 (Canceled Entry - Provider: Automatic Discharge Provider - Comment: Automatically canceled at discontinue of medication order) docusate sodium (COLACE) capsule 100 mg 100 mg, Oral, Daily, First dose on Thu06/01/19 at 0900, Until Discontinued, Swallow whole. Do not crush, open, chew, or split capsule. Swallow whole. Do not crush, open, chew, or split capsule. 0925 (Given - Provider: Maria De Jesus Brito RN) 0854 (Given - Provider: Saurabh Rodriges RN) 0935 (Given - Provider: Corinna Galeas, HIRAL) fluticasone (FLONASE) 50 MCG/ACT nasal solution 50 mcg 50 mcg (1 spray), Each Nostril, Nightly, First dose on Thu06/03/19 at 2100, Until Discontinued 0008 (Given - Provider: Oswaldo Beauchamp RN)2156 (Given - Provider: Myriam Sahu RN) 2211 (Given - Provider: Myriam Sahu RN) 2100 (Canceled Entry - Provider: Automatic Discharge Provider - Comment: Automatically canceled at discontinue of medication order) heparin (porcine) injection 5,000 Units 5,000 Units, Subcutaneous, Every 8 hours, First dose on Thu05/31/19 at 2200, Until Discontinued, HIGH RISK MEDICATION 0005 (Given - Provider: Oswaldo Beauchamp RN)0625 (Given - Provider: Oswaldo Beauchamp RN)1517 (Given - Provider: Mackenzie Mcgraw)2157 (Given - Provider: Myriam Sahu, HIRAL) 0626 (Given - Provider: Myriam Sahu, RN)1440 (Given - Provider: Saurabh Rodriges, RN)221 (Given - Provider: Myriam Sahu RN) 0607 (Given - Provider: Myriam Sahu RN)1346 (Given - Provider: Corinna Galeas, HIRAL)2199 (Canceled Entry - Provider: Automatic Discharge Provider - Comment: Automatically canceled at discontinue of medication order) ipratropium-albuterol (DUO-NEB) 0.5-2.5 mg/3 mL nebulizer solution 3 mL (CANCELED) 3 mL, Inhalation, RT 2 times daily, First dose (after last modification) on Thu06/03/19 at 2000, Until Discontinued 0528 (Given - Provider: Montana Calle, RT)2028 (Given - Provider: Almita Santillan, RT) 0551 (Given - Provider: Amanda De Luna, RT)2048 (Given - Provider: Amanda De Luna, RT) 0545 (Not Given - Provider: Amanda De Luna, RT - Reason: Patient/family refused - Comment: Patient states he only has trouble breathing after he takes breathing treatments) lidocaine (LIDOCARE) 4 % patch 1 patch 1 patch, Transdermal, Administer over 12 Hours, Daily, First dose on Thu06/02/19 at 0900, Until Discontinued, Apply 1/2 patch to each side of surgical incision (but not on incision) of posterior neck . May cut patches if needed. Remove patch after 12 hours. 0005 (Medication Removed - Provider: Oswaldo Beauchamp RN)1034 (Not Given - Provider: Maria De Jesus Brito RN - Reason: Patient/family refused) 0855 (Not Given - Provider: Saurabh Rodriges RN - Reason: Patient/family refused) 0935 (Medication Applied - Provider: Corinna Galeas, HIRAL)2039 (Due: Medication Removed - Provider: Automatic Discharge Provider - Comment: Time automatically adjusted from order being discontinued) melatonin tablet 6 mg 6 mg, Oral, Nightly, First dose on Thu06/03/19 at 2100, Until Discontinued 0005 (Given - Provider: Oswaldo Beauchamp RN)2156 (Given - Provider: Myriam Sahu, HIRAL) 2211 (Given - Provider: Myriam Sahu, RN) 2100 (Canceled Entry - Provider: Automatic Discharge Provider - Comment: Automatically canceled at discontinue of medication order) montelukast (SINGULAIR) tablet 10 mg 10 mg, Oral, Daily, First dose on Thu06/01/19 at 0900, Until Discontinued 0926 (Given - Provider: Maria De Jesus Brito RN) 0853 (Given - Provider: Saurabh Rodriges RN) 0935 (Given - Provider: Corinna Galeas, HIRAL) muscle rub (ICY HOT) 10-15 % cream Topical, 2 times daily (2 times per day), First dose on Thu06/02/19 at 0900, Until Discontinued, Apply to left shoulder 0927 (Given - Provider: Maria De Jesus Brito RN)1517 (Given - Provider: Mackenzie Mcgraw) 0856 (Given - Provider: Saurabh Rodriges, HIRAL)1438 (Given - Provider: Saurabh Rodriges RN) 0935 (Given - Provider: Corinna Galeas, HIRAL)1500 (Canceled Entry - Provider: Automatic Discharge Provider - Comment: Automatically canceled at discontinue of medication order) oxyCODONE (ROXICODONE) immediate release tablet 10 mg 10 mg, Oral, Nightly, 14 doses, First dose on Thu06/03/19 at 2100, Last dose on Thu06/16/19 at 2100 0005 (Given - Provider: Oswaldo Beauchamp RN)2155 (Not Given - Provider: Myriam Sahu RN - Reason: Patient/family refused) 2210 (Not Given - Provider: Myriam Sahu RN - Reason: Patient/family refused) 2100 (Canceled Entry - Provider: Automatic Discharge Provider - Comment: Automatically canceled at discontinue of medication order) polyethylene glycol (MIRALAX) packet 17 g 17 g, Oral, Daily, First dose on Thu06/01/19 at 0900, Until Discontinued, Dilute/Mix with 4-8 oz fluid for administration. 0924 (Given - Provider: Maria De Jesus Brito RN) 0854 (Given - Provider: Saurabh Rodriges, HIRAL) 0935 (Given - Provider: Corinna Galeas, HIRAL) potassium chloride (K-DUR,KLOR-CON) CR tablet 40 mEq 40 mEq, Oral, 2 times daily (2 times per day), 2 doses, First dose on Thu06/06/19 at 0900, Last dose on Thu06/06/19 at 2100, DO NOT CRUSH, CUT, OR CHEW. 0935 (Given - Provider: Corinna Galeas, HIRAL)2100 (Canceled Entry - Provider: Automatic Discharge Provider - Comment: Automatically canceled at discontinue of medication order) sodium chloride (OCEAN) 0.65 % nasal spray 1 spray 1 spray, Each Nostril, 2 times daily (2 times per day), First dose on Thu06/02/19 at 2100, Until Discontinued 0005 (Given - Provider: Oswaldo Beauchamp RN)0927 (Given - Provider: Maria De Jesus Brito RN)215 (Given - Provider: Myriam Sahu, HIRAL) 0856 (Given - Provider: Saurabh Rodriges RN)221 (Given - Provider: Myriam Sahu, HIRAL) 0935 (Given - Provider: Corinna Galeas, HIRAL)2100 (Canceled Entry - Provider: Automatic Discharge Provider - Comment: Automatically canceled at discontinue of medication order) thiamine tablet 100 mg 100 mg, Oral, Daily, First dose on Thu06/02/19 at 0900, Until Discontinued 926 (Given - Provider: Maria De Jesus Brito RN) 0855 (Given - Provider: Saurabh Rodriges RN) 0935 (Given - Provider: Corinna Galeas, HIRAL) PRN Medication Order 06/04/2019 06/05/2019 06/06/2019 diphenhydrAMINE (BENADRYL) tablet 25 mg 25 mg, Oral, Nightly PRN, Starting on Thu06/03/19 at 1118, Until Thu06/06/19 at 2240, insomnia/dyssomnia/sleep, Ok to take with/following melatonin if melatonin alone not effective enough 2156 (Given - Provider: Myriam Sahu RN) ondansetron ODT (ZOFRAN-ODT) disintegrating tablet 4 mg 4 mg, Oral, Every 8 hours PRN, Starting on Thu06/01/19 at 0912, Until Thu06/06/19 at 2240, nausea, vomiting oxyCODONE (ROXICODONE) immediate release tablet 5 mg 5 mg, Oral, Every 4 hours PRN, Starting on Thu05/31/19 at 195, Until Thu06/06/19 at 2240, severe pain, Do not give within 4 hours of scheduled nightly oxycodone 10 mg dose phenol 1.4 % 0.05 mL 0.05 mL (1 spray), Mouth/Throat, Every 2 hour PRN, Starting on Thu05/31/19 at 1958, Until Thu06/06/19 at 2240, sore throat documented in this encounter
--- NOTE | 2024-02-29 12:17 | PC.NURSE ---
FINAL BLOOD CULTURE REPORT; NO GROWTH AFTER 5 DAYS X2, NO FURTHER ACTION OR CHANGE IN TREATMENT NEEDED.
== END 2024-02-20 14:56 | disposition short-term general hospital (02) ==
PROVIDERS: Emergency Provider Internal Medicine Critical Care Medicine
DX: N17.9 Acute kidney failure, unspecified (principal); N20.0 Calculus of kidney; N39.0 Urinary tract infection, site not specified; F12.90 Cannabis use, unspecified, uncomplicated; Z87.891 Personal history of nicotine dependence
CPT/HCPCS: 36415; 74177; 80053; 81001; 83605; 83690; 85025; 87040; 87077; 87086; 87088; 87186; 93005; 96361; 96365; 96375; 96376; 99285; J1171; J2405; J2543; J7120; Q9967